=== PATIENT | male | born 1960 | race Caucasian/White ===

== ENCOUNTER 2020-01-25 10:13 | Outpatient (CLI) | payer OTHER, SELFPAY ==
[2020-01-25 17:13] LABS: Basophils Percent Auto 0.4 % (0.2-1.2); Eosinophils Absolute Auto 0.1 K/mm3 (0-0.3); Eosinophils Percent Auto 1.2 % (0-4.4); Hematocrit 44.7 % (42.0-52.0); Hemoglobin 15.6 g/dL (14.0-18.0); Immature Granulocyte Absolute 0.09 K/mm3 (0.00-0.031); Lymphocytes Absolute Auto 1.82 K/mm3 (0.9-3.2); Lymphocytes Percent Auto 19.4 % (18.3-44.2); Mean Corpuscular HGB Conc 34.9 g/dl (32-36); Mean Corpuscular Hemoglobin 31.6 pg (26-34); Mean Corpuscular Volume 90.5 fl (80-100); Mean Platelet Volume 9.9 fl (7.4-10.4); Monocytes Absolute Auto 0.7 K/mm3 (0.1-0.6); Monocytes Percent Auto 7.3 % (2.6-8.5); Neutrophils Absolute Auto 6.6 K/mm3 (1.3-6.7); Neutrophils Percent Auto 70.7 % (45.5-73.1); Platelet Count Result 230 k/mm3 (150-375); Red Blood Count 4.94 M/mm3 (4.6-6.20); Red Cell Distribution Width 12.5 % (11.5-14.5); White Blood Count 9.4 K/mm3 (4.5-10.0)
[2020-01-25 17:28] LABS: Add Urine Microscopic? YES; Appearance Urine Clear (Clear); Bilirubin Urine Negative (Negative); Blood Urine Negative (Negative); Color Urine Yellow (Yellow); Glucose Urine UA Negative (Negative); Ketones Urine Negative (Negative); Leukocyte Esterase Ur Negative LEU/UL (Negative); Nitrate Urine Negative (Negative); Protein Urine Negative (Negative); Specific Grav Ur 1.026 (1.001-1.035); Urobilinogen Urine Negative mg/dL (<2.0); WBC Urine 0-3 /hpf
[2020-01-25 18:50] LABS: Alanine Aminotransferase 33 U/L (4-50); Albumin Level 4.6 g/dL (3.5-5.1); Alkaline Phosphatase 75 U/L (38-126); Anion Gap 10 mmol/L (8-16); Aspartate Amino Transferase 32 U/L (17-59); Bilirubin,Total 0.5 mg/dL (0.2-1.3); Blood Urea Nitrogen 17 mg/dL (9-20); Calcium 9.6 mg/dL (8.4-10.2); Carbon Dioxide 31 mmol/L (22-30); Chloride 100 mmol/L (98-107); Cholesterol 179 mg/dL (0-200); Estimated Glomerular Filt Rate > 60; Glucose 108 mg/dL (75-110); HDL Direct 40 mg/dL; Magnesium 1.3 mg/dL (1.6-2.3); Potassium 3.5 mmol/L (3.4-5.0); Sodium 141 mmol/L (137-145); Triglycerides 457 mg/dL (<150)
[2020-01-25 18:53] LABS: Iron 96 ug/dL (49-181)
[2020-01-25 18:59] LABS: LDL Cholesterol Direct 67 mg/dL
[2020-01-25 19:03] LABS: Percent Iron Saturation 27 % (20-50)
[2020-01-25 19:08] LABS: Vitamin D 25 Hydroxy 27.2 ng/mL
[2020-01-25 19:13] LABS: Free T4 Free Thyroxine 1.05 ng/mL (0.78-2.19)
[2020-01-25 19:20] LABS: Prostate Specific Antigen 0.8 ng/mL (< OR = 4.0)
[2020-01-25 19:54] LABS: Folic Acid 19.7 ng/mL (2.76->20)
[2020-01-28 13:52] LABS: FSH 4.3 mIU/mL (1.6-8.0); Triiodothyronine T3 Free 3.4 pg/mL (2.3-4.2)
[2020-01-29 10:35] LABS: T3 Reverse 13 ng/dL (8-25)
[2020-01-30 12:59] LABS: Testosterone Free 44.8 pg/mL (35.0-155.0); Testosterone Total 180 ng/dL (250-1100)
== END 2020-01-25 10:14 | disposition home or self-care (01) ==
LOC: ANHBWCLAB 10:17
PROVIDERS: PCP Family Medicine; Visit Provider Family Medicine
DX: R79.89 Other specified abnormal findings of blood chemistry (principal); K46.9 Unspecified abdominal hernia without obstruction or gangrene; K50.90 Crohn's disease, unspecified, without complications; Z51.81 Encounter for therapeutic drug level monitoring; Z79.899 Other long term (current) drug therapy
CPT/HCPCS: 36415; 80053; 80061; 81001; 82306; 82607; 82728; 82746; 83001; 83540; 83550; 83735; 84153; 84402; 84403; 84439; 84443; 84481; 84482; 85025; 86140; G0103

== ENCOUNTER 2020-04-11 11:16 | Outpatient (CLI) | payer OTHER, SELFPAY ==
[2020-04-11 18:45] LABS: Basophils Percent Auto 0.6 % (0.2-1.2); Eosinophils Absolute Auto 0.1 K/mm3 (0-0.3); Eosinophils Percent Auto 1.7 % (0-4.4); Hematocrit 44.8 % (42.0-52.0); Hemoglobin 15.9 g/dL (14.0-18.0); Immature Granulocyte Absolute 0.04 K/mm3 (0.00-0.031); Immature Granulocyte Percent A 0.6 % (0-0.5); Lymphocytes Absolute Auto 1.93 K/mm3 (0.9-3.2); Lymphocytes Percent Auto 30.2 % (18.3-44.2); Mean Corpuscular HGB Conc 35.5 g/dl (32-36); Mean Corpuscular Volume 87.3 fl (80-100); Mean Platelet Volume 10.1 fl (7.4-10.4); Monocytes Absolute Auto 0.4 K/mm3 (0.1-0.6); Monocytes Percent Auto 6.1 % (2.6-8.5); Neutrophils Absolute Auto 3.9 K/mm3 (1.3-6.7); Neutrophils Percent Auto 60.8 % (45.5-73.1); Platelet Count Result 220 k/mm3 (150-375); Red Blood Count 5.13 M/mm3 (4.6-6.20); Red Cell Distribution Width 12.4 % (11.5-14.5); White Blood Count 6.4 K/mm3 (4.5-10.0)
[2020-04-11 18:50] LABS: Add Urine Microscopic? YES; Amorphous Sediment Urine Moderate; Appearance Urine Turbid (Clear); Bilirubin Urine Negative (Negative); Blood Urine Negative (Negative); Color Urine Yellow (Yellow); Glucose Urine UA Negative (Negative); Ketones Urine Negative (Negative); Leukocyte Esterase Ur Negative LEU/UL (Negative); Nitrate Urine Negative (Negative); Protein Urine Negative (Negative); Specific Grav Ur 1.023 (1.001-1.035); Urobilinogen Urine Negative mg/dL (<2.0)
[2020-04-11 19:34] LABS: Vitamin D 25 Hydroxy 33.3 ng/mL
[2020-04-11 21:33] LABS: Alanine Aminotransferase 46 U/L (4-50); Albumin Level 4.4 g/dL (3.5-5.1); Alkaline Phosphatase 65 U/L (38-126); Anion Gap 7 mmol/L (8-16); Aspartate Amino Transferase 42 U/L (17-59); Bilirubin,Total 0.6 mg/dL (0.2-1.3); Blood Urea Nitrogen 15 mg/dL (9-20); Calcium 9.5 mg/dL (8.4-10.2); Carbon Dioxide 32 mmol/L (22-30); Chloride 99 mmol/L (98-107); Cholesterol 200 mg/dL (0-200); Estimated Glomerular Filt Rate > 60; Glucose 107 mg/dL (75-110); HDL Direct 40 mg/dL; Potassium 3.6 mmol/L (3.4-5.0); Sodium 138 mmol/L (137-145); Triglycerides 505 mg/dL (<150)
[2020-04-11 21:44] LABS: LDL Cholesterol Direct 70 mg/dL
[2020-04-11 21:59] LABS: CRP < 0.5 mg/dL (<1.0)
[2020-04-15 07:12] LABS: FSH 4.1 mIU/mL (1.6-8.0)
[2020-04-16 15:39] LABS: Testosterone Total 271 ng/dL (250-1100)
== END 2020-04-11 11:17 | disposition home or self-care (01) ==
PROVIDERS: PCP Family Medicine; Visit Provider Family Medicine
DX: R89.9 Unspecified abnormal finding in specimens from other organs, systems and tissues (principal); Z51.81 Encounter for therapeutic drug level monitoring; Z79.899 Other long term (current) drug therapy; K50.90 Crohn's disease, unspecified, without complications; R79.89 Other specified abnormal findings of blood chemistry; E83.42 Hypomagnesemia; E78.1 Pure hyperglyceridemia
CPT/HCPCS: 36415; 80053; 80061; 81001; 82306; 83001; 84402; 84403; 85025; 86140

== ENCOUNTER 2020-05-05 09:30 | Outpatient (CLI) | payer OTHER, SELFPAY ==
[2020-05-05 18:46] LABS: Cholesterol 203 mg/dL (0-200); HDL Direct 41 mg/dL; Triglycerides 376 mg/dL (<150)
[2020-05-05 18:56] LABS: LDL Cholesterol Direct 85 mg/dL
[2020-05-09 19:24] LABS: Testosterone Free 46.4 pg/mL (35.0-155.0); Testosterone Total 201 ng/dL (250-1100)
== END 2020-05-05 09:31 | disposition home or self-care (01) ==
PROVIDERS: PCP Family Medicine; Visit Provider Family Medicine
DX: E29.1 Testicular hypofunction (principal); E78.1 Pure hyperglyceridemia
CPT/HCPCS: 36415; 80061; 84402; 84403

== ENCOUNTER 2020-09-30 11:35 | Outpatient (CLI) | payer OTHER, SELFPAY ==
[2020-09-30 18:26] LABS: Basophils Percent Auto 0.7 % (0.2-1.2); Eosinophils Absolute Auto 0.1 K/mm3 (0-0.3); Hematocrit 46.7 % (42.0-52.0); Hemoglobin 16.5 g/dL (14.0-18.0); Immature Granulocyte Absolute 0.02 K/mm3 (0.00-0.031); Immature Granulocyte Percent A 0.3 % (0-0.5); Lymphocytes Absolute Auto 1.62 K/mm3 (0.9-3.2); Lymphocytes Percent Auto 27.4 % (18.3-44.2); Mean Corpuscular HGB Conc 35.3 g/dl (32-36); Mean Corpuscular Hemoglobin 32.2 pg (26-34); Mean Corpuscular Volume 91.2 fl (80-100); Mean Platelet Volume 10.5 fl (7.4-10.4); Monocytes Absolute Auto 0.5 K/mm3 (0.1-0.6); Monocytes Percent Auto 8.6 % (2.6-8.5); Neutrophils Absolute Auto 3.7 K/mm3 (1.3-6.7); Platelet Count Result 226 k/mm3 (150-375); Red Blood Count 5.12 M/mm3 (4.6-6.20); Red Cell Distribution Width 12.3 % (11.5-14.5); White Blood Count 5.9 K/mm3 (4.5-10.0)
[2020-09-30 18:31] LABS: Triglycerides 416 mg/dL (<150)
[2020-09-30 18:34] LABS: Alanine Aminotransferase 34 U/L (4-50); Albumin Level 4.6 g/dL (3.5-5.1); Alkaline Phosphatase 50 U/L (38-126); Anion Gap 11 mmol/L (8-16); Aspartate Amino Transferase 35 U/L (17-59); Bilirubin,Total 0.6 mg/dL (0.2-1.3); Blood Urea Nitrogen 18 mg/dL (9-20); Calcium 9.6 mg/dL (8.4-10.2); Carbon Dioxide 26 mmol/L (22-30); Chloride 101 mmol/L (98-107); Cholesterol 205 mg/dL (0-200); Estimated Glomerular Filt Rate > 60; Glucose 154 mg/dL (65-110); HDL Direct 42 mg/dL; Magnesium 1.4 mg/dL (1.6-2.3); Potassium 3.4 mmol/L (3.4-5.0); Sodium 138 mmol/L (137-145); Triglycerides 410 mg/dL (<150)
[2020-09-30 18:45] LABS: LDL Cholesterol Direct 89 mg/dL
[2020-09-30 19:05] LABS: Prostate Specific Antigen 0.7 ng/mL (< OR = 4.0)
[2020-09-30 20:58] LABS: Vitamin D 25 Hydroxy 42.4 ng/mL
[2020-10-05 16:25] LABS: Estrogen 258.5 pg/mL (60-190)
== END 2020-09-30 11:36 | disposition home or self-care (01) ==
LOC: ANHBWCLAB 11:42
PROVIDERS: PCP Family Medicine; Visit Provider Family Medicine
DX: E78.1 Pure hyperglyceridemia (principal); R79.89 Other specified abnormal findings of blood chemistry; G62.9 Polyneuropathy, unspecified; I10 Essential (primary) hypertension; K50.90 Crohn's disease, unspecified, without complications; E83.42 Hypomagnesemia; E29.1 Testicular hypofunction; Z87.19 Personal history of other diseases of the digestive system
CPT/HCPCS: 36415; 80053; 80061; 82306; 82607; 82672; 83735; 84153; 84478; 85025

== ENCOUNTER 2020-10-06 08:15 | Outpatient (CLI) | payer OTHER, SELFPAY ==
[2020-10-06 21:35] LABS: Hemoglobin A1C 5.6 % (<5.7)
[2020-10-10 15:12] LABS: Testosterone Total 162 ng/dL (250-1100)
== END 2020-10-06 08:16 | disposition home or self-care (01) ==
PROVIDERS: PCP Family Medicine; Visit Provider Family Medicine
DX: E29.1 Testicular hypofunction (principal); R73.9 Hyperglycemia, unspecified
CPT/HCPCS: 36415; 83036; 84403

== ENCOUNTER 2020-11-20 09:38 | Outpatient (CLI) | payer OTHER, SELFPAY ==
[2020-11-20 21:08] LABS: Anion Gap 10 mmol/L (8-16); Blood Urea Nitrogen 21 mg/dL (9-20); Calcium 9.9 mg/dL (8.4-10.2); Carbon Dioxide 28 mmol/L (22-30); Chloride 101 mmol/L (98-107); Estimated Glomerular Filt Rate > 60; Glucose 158 mg/dL (65-110); Potassium 3.7 mmol/L (3.4-5.0); Sodium 139 mmol/L (137-145)
[2020-11-28 00:55] LABS: Testosterone Free 89.1 pg/mL (35.0-155.0); Testosterone Total 437 ng/dL (250-1100)
== END 2020-11-20 09:39 | disposition home or self-care (01) ==
PROVIDERS: PCP Family Medicine; Visit Provider Family Medicine
DX: E87.6 Hypokalemia (principal)
CPT/HCPCS: 36415; 80048; 84402; 84403

== ENCOUNTER 2021-01-06 10:45 | Outpatient (CLI) | payer OTHER, SELFPAY ==
--- NOTE | ~2021-01-06 | XR_ITS ---
EXAMINATION: XR shoulder LT min 2V EXAM DATE: 01/06/2021 10:56 INDICATION: Anterior Pain In Lt Shoulder X 8 Months, No Inj. TECHNIQUE: The following left shoulder projections obtained: frontal projection with internal rotatio n, frontal projection with external rotation, Grashey, and scapular Y view (4+ views). There is no p rior study for comparison. FINDINGS: No evidence of left shoulder rotator cuff calcific tendinosis. There is mild glenohumera l joint, mild to moderate acromioclavicular joint primary osteoarthritis. There are no acute fracture s or dislocations identified. There is no subcutaneous gas. The soft tissue is unremarkable. Ther e are no radiopaque foreign bodies. IMPRESSION: Mild to moderate left AC, mild glenohumeral osteoarthritis. Reviewed, dictated and finalized at location A. ATOR INSTALLER
== END 2021-01-06 10:46 | disposition home or self-care (01) ==
PROVIDERS: PCP Family Medicine; Visit Provider Family Medicine
DX: M19.012 Primary osteoarthritis, left shoulder (principal)
CPT/HCPCS: 73030

== ENCOUNTER 2021-06-17 08:28 | Outpatient (CLI) | payer OTHER, SELFPAY ==
[2021-06-18 11:40] LABS: Hematocrit 48.4 % (42.0-52.0); Hemoglobin 15.3 g/dL (14.0-18.0); Mean Corpuscular HGB Conc 31.6 g/dl (32-36); Mean Corpuscular Hemoglobin 30.8 pg (26-34); Mean Corpuscular Volume 97.6 fl (80-100); Mean Platelet Volume 10.1 fl (7.4-10.4); Platelet Count Result 238 k/mm3 (150-375); Red Blood Count 4.96 M/mm3 (4.6-6.20); Red Cell Distribution Width 14.1 % (11.5-14.5); White Blood Count 5.5 K/mm3 (4.5-10.0)
[2021-06-18 14:29] LABS: Cholesterol 213 mg/dL (0-200); HDL Direct 45 mg/dL; Triglycerides 233 mg/dL (<150)
[2021-06-18 14:44] LABS: LDL Cholesterol Direct 102 mg/dL
[2021-06-18 15:56] LABS: Prostate Specific Antigen 0.8 ng/mL (< OR = 4.0)
[2021-06-22 10:14] LABS: Testosterone Free 96.5 pg/mL (35.0-155.0); Testosterone Total 386 ng/dL (250-1100)
== END 2021-06-17 08:29 | disposition home or self-care (01) ==
PROVIDERS: PCP Family Medicine; Visit Provider Family Medicine
DX: R79.89 Other specified abnormal findings of blood chemistry (principal)
CPT/HCPCS: 36415; 80061; 84153; 84402; 84403; 85027; G0103

== ENCOUNTER 2021-06-22 11:56 | Outpatient (CLI) | payer OTHER, SELFPAY | END 2021-06-22 11:57 | disposition home or self-care (01) | PROVIDERS: PCP Family Medicine; Visit Provider Family Medicine | DX: G62.9 Polyneuropathy, unspecified (principal) | CPT/HCPCS: 36415; 82607 ==

== ENCOUNTER 2022-01-12 08:03 | Outpatient (CLI) | payer OTHER, SELFPAY ==
[2022-01-12 19:02] LABS: Basophils Percent Auto 0.3 % (0.2-1.2); Eosinophils Percent Auto 0.5 % (0-4.4); Hematocrit 47.2 % (42.0-52.0); Hemoglobin 16.2 g/dL (14.0-18.0); Immature Granulocyte Absolute 0.05 K/mm3 (0.00-0.031); Immature Granulocyte Percent A 0.8 % (0-0.5); Lymphocytes Absolute Auto 1.91 K/mm3 (0.9-3.2); Lymphocytes Percent Auto 30.1 % (18.3-44.2); Mean Corpuscular HGB Conc 34.3 g/dl (32-36); Mean Corpuscular Hemoglobin 32.4 pg (26-34); Mean Corpuscular Volume 94.4 fl (80-100); Mean Platelet Volume 10.1 fl (7.4-10.4); Monocytes Absolute Auto 0.5 K/mm3 (0.1-0.6); Monocytes Percent Auto 8.5 % (2.6-8.5); Neutrophils Absolute Auto 3.8 K/mm3 (1.3-6.7); Neutrophils Percent Auto 59.8 % (45.5-73.1); Platelet Count Result 225 k/mm3 (150-375); Red Cell Distribution Width 12.3 % (11.5-14.5); White Blood Count 6.3 K/mm3 (4.5-10.0)
[2022-01-12 19:07] LABS: Alanine Aminotransferase 47 U/L (6-50); Albumin Level 4.9 g/dL (3.5-5.1); Alkaline Phosphatase 56 U/L (38-126); Anion Gap 11 mmol/L (8-16); Aspartate Amino Transferase 65 U/L (17-59); Bilirubin,Total 0.5 mg/dL (0.2-1.3); Blood Urea Nitrogen 22 mg/dL (9-20); Calcium 9.4 mg/dL (8.4-10.2); Carbon Dioxide 28 mmol/L (22-30); Chloride 101 mmol/L (98-107); Cholesterol 231 mg/dL (0-200); Estimated Glomerular Filt Rate > 60; Glucose 105 mg/dL (65-110); HDL Direct 47 mg/dL; Potassium 3.7 mmol/L (3.4-5.0); Sodium 140 mmol/L (137-145); Triglycerides 269 mg/dL (<150)
[2022-01-12 19:18] LABS: LDL Cholesterol Direct 118 mg/dL
[2022-01-16 16:57] LABS: Testosterone Free 114.7 pg/mL (35.0-155.0); Testosterone Total 455 ng/dL (250-1100)
== END 2022-01-12 08:04 | disposition home or self-care (01) ==
LOC: ANHBWCLAB 08:03
PROVIDERS: PCP Family Medicine; Visit Provider Family Medicine
DX: Z00.00 Encounter for general adult medical examination without abnormal findings (principal); E87.6 Hypokalemia; R79.89 Other specified abnormal findings of blood chemistry
CPT/HCPCS: 36415; 80053; 80061; 84153; 84402; 84403; 85025; G0103

== ENCOUNTER 2022-02-04 11:16 | Outpatient (CLI) | payer OTHER, SELFPAY ==
[2022-02-04 20:09] LABS: Hematocrit 50.9 % (42.0-52.0); Hemoglobin 17.9 g/dL (14.0-18.0); Mean Corpuscular HGB Conc 35.2 g/dl (32-36); Mean Corpuscular Hemoglobin 31.9 pg (26-34); Mean Corpuscular Volume 90.7 fl (80-100); Mean Platelet Volume 10.2 fl (7.4-10.4); Platelet Count Result 245 k/mm3 (150-375); Red Blood Count 5.61 M/mm3 (4.6-6.20); Red Cell Distribution Width 12.1 % (11.5-14.5); White Blood Count 7.7 K/mm3 (4.5-10.0)
[2022-02-04 20:18] LABS: Alanine Aminotransferase 65 U/L (6-50); Albumin Level 5.3 g/dL (3.5-5.1); Alkaline Phosphatase 60 U/L (38-126); Anion Gap 15 mmol/L (8-16); Aspartate Amino Transferase 79 U/L (17-59); Bilirubin,Total 0.8 mg/dL (0.2-1.3); Blood Urea Nitrogen 33 mg/dL (9-20); Calcium 9.1 mg/dL (8.4-10.2); Carbon Dioxide 24 mmol/L (22-30); Chloride 92 mmol/L (98-107); Estimated Glomerular Filt Rate 34; Glucose 106 mg/dL (65-110); Potassium 3.5 mmol/L (3.4-5.0); Sodium 131 mmol/L (137-145)
== END 2022-02-04 11:17 | disposition home or self-care (01) ==
LOC: ANHBWCLAB 11:17
PROVIDERS: PCP Family Medicine; Visit Provider Family Medicine
DX: R19.7 Diarrhea, unspecified (principal); R10.9 Unspecified abdominal pain
CPT/HCPCS: 36415; 80053; 85027

== ENCOUNTER 2022-04-12 10:39 | Outpatient (CLI) | payer OTHER, SELFPAY ==
[2022-04-12 19:46] LABS: Alanine Aminotransferase 49 U/L (6-50); Albumin Level 4.6 g/dL (3.5-5.1); Alkaline Phosphatase 59 U/L (38-126); Anion Gap 8 mmol/L (8-16); Aspartate Amino Transferase 61 U/L (17-59); Bilirubin,Total 0.5 mg/dL (0.2-1.3); Blood Urea Nitrogen 14 mg/dL (9-20); Carbon Dioxide 31 mmol/L (22-30); Chloride 98 mmol/L (98-107); Estimated Glomerular Filt Rate > 60; Glucose 161 mg/dL (65-110); Potassium 3.3 mmol/L (3.4-5.0); Sodium 137 mmol/L (137-145)
[2022-04-12 21:00] LABS: Hepatitis B Surface Antigen Negative (Negative)
[2022-04-12 21:06] LABS: HAV RESULT Negative (Negative); Hepatitis B Core IgM Result Negative (Negative)
[2022-04-12 21:18] LABS: Hepatitis C Virus Antibody Negative (Negative)
== END 2022-04-12 10:40 | disposition home or self-care (01) ==
LOC: ANHBWCLAB 10:40
PROVIDERS: PCP Family Medicine; Visit Provider Family Medicine
DX: R74.01 Elevation of levels of liver transaminase levels (principal); N17.9 Acute kidney failure, unspecified; R10.9 Unspecified abdominal pain; R19.7 Diarrhea, unspecified
CPT/HCPCS: 36415; 80053; 80074; 82248

== ENCOUNTER 2022-04-21 08:15 | Outpatient (CLI) | payer OTHER, SELFPAY ==
[2022-04-21 20:34] LABS: Anion Gap 8 mmol/L (8-16); Blood Urea Nitrogen 19 mg/dL (9-20); Calcium 9.4 mg/dL (8.4-10.2); Carbon Dioxide 29 mmol/L (22-30); Chloride 100 mmol/L (98-107); Estimated Glomerular Filt Rate > 60; Glucose 112 mg/dL (65-110); Potassium 3.4 mmol/L (3.4-5.0); Sodium 137 mmol/L (137-145)
[2022-04-21 20:50] LABS: Hemoglobin A1C 5.4 % (<5.7)
== END 2022-04-21 08:16 | disposition home or self-care (01) ==
LOC: ANHBWCLAB 08:16
PROVIDERS: PCP Family Medicine; Visit Provider Family Medicine
DX: R73.9 Hyperglycemia, unspecified (principal); E87.6 Hypokalemia
CPT/HCPCS: 36415; 80048; 83036

== ENCOUNTER 2022-07-20 08:08 | Outpatient (CLI) | payer OTHER, SELFPAY ==
[2022-07-24 19:11] LABS: Testosterone Free 41.2 pg/mL (35.0-155.0); Testosterone Total 238 ng/dL (250-1100)
== END 2022-07-20 08:09 | disposition home or self-care (01) ==
LOC: ANHBWCLAB 08:08
PROVIDERS: PCP Family Medicine; Visit Provider Nurse Practitioner Adult Health
DX: E87.6 Hypokalemia (principal)
CPT/HCPCS: 36415; 84402; 84403

== ENCOUNTER 2023-01-18 08:32 | Outpatient (CLI) | payer OTHER, SELFPAY ==
--- NOTE | ~2023-01-18 | XR_ITS ---
EXAMINATION: XR foot LT 2V INDICATION: Left foot pain TECHNIQUE: Two views of the left foot are obtained. COMPARISON: None available FINDINGS: Bone alignment is normal. There is no fracture. There is mild osteoarthritis of multiple in terphalangeal joints and at the first metatarsophalangeal joint. The soft tissues are unremarkable. A plantar calcaneal enthesophyte is noted. IMPRESSION: 1. Polyarticular osteoarthritis without acute osseous abnormality. Reviewed, dictated and finalized at location L. NEY BUILDER BRICK
--- NOTE | ~2023-01-18 | XR_ITS ---
Right ankle Technique: AP and lateral views were obtained. Clinical History: Pain Findings: No acute fracture or dislocation is seen. Osseous alignment is anatomic. Ankle mortise and other visualized joint spaces are preserved. Soft tissues are otherwise unremarkable. Impression: Unremarkable right ankle. Reviewed, dictated and finalized at [facility]. ATIONS MANAGER Impression: Unremarkable right ankle.
--- NOTE | ~2023-01-18 | XR_ITS ---
Left ankle Technique: AP and lateral views were obtained. Clinical History: Pain Findings: No acute fracture or dislocation is seen. Osseous alignment is anatomic. Ankle mortise and other visualized joint spaces are preserved. Soft tissues are otherwise unremarkable. Impression: Unremarkable left ankle. Reviewed, dictated and finalized at [facility]. VATION MANAGER Impression: Unremarkable left ankle.
--- NOTE | ~2023-01-18 | XR_ITS ---
EXAMINATION: XR foot RT 2V INDICATION: Right foot pain TECHNIQUE: Two views of the right foot are obtained. COMPARISON: None available FINDINGS: Bone alignment is normal. There is no acute fracture. Heterotopic ossification lateral to t he base of the fifth metatarsal could reflect prior fracture. There is mild osteoarthritis of multipl e interphalangeal joints and at the first metatarsophalangeal joint. Posterior and plantar calcaneal enthesophytes are noted. IMPRESSION: 1. No acute osseous abnormality. Reviewed, dictated and finalized at location L. MIC SURVEY ASSISTANT
[2023-01-18 19:37] LABS: Basophils Absolute Auto 0.1 K/mm3 (0.0-0.1); Basophils Percent Auto 0.7 % (0.2-1.2); Eosinophils Absolute Auto 0.1 K/mm3 (0-0.3); Eosinophils Percent Auto 0.7 % (0-4.4); Hematocrit 49.3 % (42.0-52.0); Hemoglobin 16.3 g/dL (14.0-18.0); Immature Granulocyte Absolute 0.12 K/mm3 (0.00-0.031); Immature Granulocyte Percent A 1.6 % (0-0.5); Lymphocytes Absolute Auto 1.87 K/mm3 (0.9-3.2); Lymphocytes Percent Auto 24.3 % (18.3-44.2); Mean Corpuscular HGB Conc 33.1 g/dl (32-36); Mean Corpuscular Hemoglobin 31.2 pg (26-34); Mean Corpuscular Volume 94.3 fl (80-100); Mean Platelet Volume 10.4 fl (7.4-10.4); Monocytes Absolute Auto 0.7 K/mm3 (0.1-0.6); Monocytes Percent Auto 8.8 % (2.6-8.5); Neutrophils Absolute Auto 4.9 K/mm3 (1.3-6.7); Neutrophils Percent Auto 63.9 % (45.5-73.1); Platelet Count Result 261 k/mm3 (150-375); Red Blood Count 5.23 M/mm3 (4.6-6.20); Red Cell Distribution Width 12.4 % (11.5-14.5); White Blood Count 7.7 K/mm3 (4.5-10.0)
[2023-01-18 19:53] LABS: Alanine Aminotransferase 45 U/L (6-50); Albumin Level 4.8 g/dL (3.5-5.1); Alkaline Phosphatase 60 U/L (38-126); Anion Gap 10 mmol/L (8-16); Aspartate Amino Transferase 51 U/L (17-59); Bilirubin,Total 0.8 mg/dL (0.2-1.3); Blood Urea Nitrogen 21 mg/dL (9-20); Calcium 10.2 mg/dL (8.4-10.2); Carbon Dioxide 29 mmol/L (22-30); Chloride 99 mmol/L (98-107); Cholesterol 229 mg/dL (0-200); Estimated Glomerular Filt Rate > 60; Glucose 108 mg/dL (65-110); HDL Direct 49 mg/dL; LDL Cholesterol Direct 121 mg/dL; Potassium 4.1 mmol/L (3.4-5.0); Sodium 138 mmol/L (137-145); Triglycerides 218 mg/dL (<150); Uric Acid 5.8 mg/dL (3.5-8.5)
[2023-01-18 19:54] LABS: Vitamin D 25 Hydroxy 29.1 ng/mL
[2023-01-18 20:11] LABS: Prostate Specific Antigen 1.2 ng/mL (< OR = 4.0)
[2023-01-18 20:48] LABS: Folic Acid 5.2 ng/mL (2.76->20)
[2023-01-23 13:16] LABS: Testosterone Free 52.9 pg/mL (35.0-155.0); Testosterone Total 252 ng/dL (250-1100)
== END 2023-01-18 08:33 | disposition home or self-care (01) ==
LOC: ANHBWCLAB 08:33
PROVIDERS: PCP Nurse Practitioner Adult Health; Visit Provider Nurse Practitioner Adult Health
DX: M19.072 Primary osteoarthritis, left ankle and foot (principal); I10 Essential (primary) hypertension; G62.9 Polyneuropathy, unspecified; E83.42 Hypomagnesemia; M10.9 Gout, unspecified; R79.89 Other specified abnormal findings of blood chemistry; Z12.5 Encounter for screening for malignant neoplasm of prostate
CPT/HCPCS: 36415; 73600; 73620; 80053; 80061; 82306; 82607; 82746; 83735; 84153; 84402; 84403; 84550; 85025; G0103

== ENCOUNTER 2023-01-21 09:29 | Outpatient (CLI) | payer OTHER, SELFPAY ==
[2023-01-21 19:11] LABS: Erythrocyte Sedimentation Rate 6 mm/hr (0-20)
[2023-01-26 16:57] LABS: ANA Cascade Screen Negative (Negative)
== END 2023-01-21 09:30 | disposition home or self-care (01) ==
LOC: ANHBWCLAB 09:30
PROVIDERS: PCP Nurse Practitioner Adult Health; Visit Provider Nurse Practitioner Adult Health
DX: M25.50 Pain in unspecified joint (principal)
CPT/HCPCS: 36415; 85652; 86038; 86225; 86235; 86364

== ENCOUNTER 2023-07-26 07:33 | Outpatient (CLI) | payer OTHER, SELFPAY ==
[2023-07-26 18:43] LABS: Basophils Absolute Auto 0.1 K/mm3 (0.0-0.1); Basophils Percent Auto 0.7 % (0.2-1.2); Eosinophils Absolute Auto 0.1 K/mm3 (0-0.3); Eosinophils Percent Auto 0.9 % (0-4.4); Hematocrit 53.5 % (42.0-52.0); Hemoglobin 17.7 g/dL (14.0-18.0); Immature Granulocyte Absolute 0.07 K/mm3 (0.00-0.031); Immature Granulocyte Percent A 0.9 % (0-0.5); Lymphocytes Absolute Auto 2.06 K/mm3 (0.9-3.2); Lymphocytes Percent Auto 27.6 % (18.3-44.2); Mean Corpuscular HGB Conc 33.1 g/dl (32-36); Mean Corpuscular Hemoglobin 31.1 pg (26-34); Mean Corpuscular Volume 93.9 fl (80-100); Mean Platelet Volume 10.7 fl (7.4-10.4); Monocytes Absolute Auto 0.8 K/mm3 (0.1-0.6); Monocytes Percent Auto 10.1 % (2.6-8.5); Neutrophils Absolute Auto 4.5 K/mm3 (1.3-6.7); Neutrophils Percent Auto 59.8 % (45.5-73.1); Platelet Count Result 253 k/mm3 (150-375); Red Cell Distribution Width 13.1 % (11.5-14.5); White Blood Count 7.5 K/mm3 (4.5-10.0)
[2023-07-26 18:45] LABS: Alanine Aminotransferase 43 U/L (6-50); Albumin Level 4.4 g/dL (3.5-5.1); Alkaline Phosphatase 55 U/L (38-126); Anion Gap 10 mmol/L (4-12); Aspartate Amino Transferase 69 U/L (17-59); Bilirubin,Total 0.7 mg/dL (0.2-1.3); Blood Urea Nitrogen 23 mg/dL (9-20); Calcium 9.3 mg/dL (8.4-10.2); Carbon Dioxide 27 mmol/L (22-30); Chloride 103 mmol/L (98-107); Cholesterol 196 mg/dL (0-200); Estimated Glomerular Filt Rate > 60; Glucose 118 mg/dL (65-110); HDL Direct 41 mg/dL; Magnesium 1.8 mg/dL (1.6-2.3); Potassium 3.7 mmol/L (3.4-5.0); Sodium 140 mmol/L (137-145); Triglycerides 224 mg/dL (<150); Uric Acid 6.8 mg/dL (3.5-8.5)
[2023-07-26 18:56] LABS: LDL Cholesterol Direct 116 mg/dL
[2023-07-26 19:21] LABS: Vitamin D 25 Hydroxy 32.7 ng/mL
[2023-07-29 14:43] LABS: Testosterone Free 168 pg/mL (35.0-155.0); Testosterone Total 721 ng/dL (250-1100)
== END 2023-07-26 07:34 | disposition home or self-care (01) ==
PROVIDERS: PCP Nurse Practitioner Adult Health; Visit Provider Nurse Practitioner Adult Health
DX: I10 Essential (primary) hypertension (principal); M10.9 Gout, unspecified; E29.1 Testicular hypofunction; R79.89 Other specified abnormal findings of blood chemistry
CPT/HCPCS: 36415; 80053; 80061; 82306; 83735; 84402; 84403; 84443; 84550; 85025

== ENCOUNTER 2023-08-15 17:42 | Emergency (ER) | payer OTHER, SELFPAY ==
[2023-08-15 17:56] VITALS: BP 149/95; PULSE 73; RESP 16; TEMP 36.9; O2SAT 95
--- NOTE | 2023-08-15 18:05 | ED.GENADULT ---
HPI - General Adult General Chief complaint: Ear Stated complaint: Left Ear Pain Time Seen by Provider: 08/15/23 18:08 Source: patient, RN notes reviewed and old records reviewed Mode of arrival: ambulatory Limitations: no limitations History of Present Illness HPI narrative: 63-year-old male presents to the [facility] with left ear for couple days. Also decreased hearing in the right ear. Patient does hearing aids Related Data Home Medications Medication Instructions Recorded Confirmed cholecalciferol (vitamin D3) 1,250 1,250 mcg PO .qd 01/21/20 07/20/23 mcg (50,000 unit) capsule iron,carbonyl 65 mg-vitamin C 125 1 tablet PO DAILY 01/21/20 07/20/23 mg tablet,delayed release (Vitron-C) loperamide 2 mg tablet (Imodium 2 mg PO Q4H PRN 01/21/20 07/20/23 A-D) lucuynllpumv-osaydvvs-htdhia tablet 1 tablet PO DAILY 01/21/20 07/20/23 infliximab 100 mg intravenous IV 04/11/20 07/20/23 solution (Remicade) mecobalamin (vitamin B12) 5,000 mcg PO 01/06/21 07/20/23 mcg disintegrating tablet Allergies Allergy/AdvReac Type Severity Reaction Status Date / Time orange Allergy Mild Abdominal Verified 07/20/23 09:12 Pain tomato Allergy Mild Gastrointestinal Verified 07/20/23 09:12 Upset Sulfa (Sulfonamide Allergy Unknown Hives Verified 07/20/23 09:12 Antibiotics) Review of Systems Review of Systems: All systems reviewed & are unremarkable except as noted in HPI and below Constitutional: Constitutional: Reports no additional constitutional complaints Eyes: Eyes: Reports no additional eye complaints ENT: Reports as per HPI Cardiovascular: Cardiovascular: Reports no additional cardiovascular complaints, Denies chest pain and Denies dyspnea Respiratory: Respiratory: Reports no additional respiratory complaints, Denies chest congestion, Denies cough and Denies dyspnea Gastrointestinal: Gastrointestinal: Reports no additional gastrointestinal complaints, Denies abdominal pain, Denies nausea and Denies vomiting Musculoskeletal: Musculoskeletal: Reports no additional musculoskeletal complaints Integumentary/Breasts: Skin/Breast: Reports system reviewed and no additional complaints, except as docu Neurologic: Reports system reviewed and no additional complaints, except as documented Psychiatric: Psychiatric: Reports no additional psychiatric complaints Allergic/Immunologic: Allergic/Immunologic: Reports no additional allergic/immunologic complaints PMFSH Past Medical History Medical History Bleeding ulcer Crohn's colitis GERD (gastroesophageal reflux disease) HTN (hypertension) Kidney stone Liver hemangioma Neuropathy Pancreatitis Surgical History Surgical History H/O hernia repair H/O lithotripsy History of colostomy reversal Hx of colostomy Status post right colon removal Family History Family History Mother History of IBS Abdominal aneurysm Father Esophageal cancer Black lung Cerebrovascular accident Social History Social History Smoking status: Never smoker Alcohol intake: current Drinks per week: 4 Substance use: never Substance use type: does not use Lack of Transportation: No Lack of Food: Never True Current Housing: I Have Housing Concerned About Future Housing: No Difficulty Paying Gas/Electric Bills: No Difficulty Paying for Meds: No Currently Unemployed: No Education: Master's Degree or Higher Difficulty w/ Childcare or Family Care: No Comments At the time of my signature, I reviewed and agree with the nursing past medical, surgical, social, and family history. There is no relevant family history pertinent to the patient complaint. Exam Const: General: cooperative, healthy appearing, comfortable, no acute dist
== END 2023-08-15 18:36 | disposition home or self-care (01) ==
PROVIDERS: Emergency Provider Nurse Practitioner; PCP Family Medicine
DX: H60.332 Swimmer's ear, left ear (principal); H61.21 Impacted cerumen, right ear; K50.90 Crohn's disease, unspecified, without complications; K21.9 Gastro-esophageal reflux disease without esophagitis; I10 Essential (primary) hypertension; G62.9 Polyneuropathy, unspecified
CPT/HCPCS: 69209; 99213; G0463

== ENCOUNTER 2023-08-19 09:05 | Emergency (ER) | payer OTHER, SELFPAY ==
[2023-08-19 09:09] VITALS: BP 148/95; PULSE 62; RESP 18; TEMP 37.1; O2SAT 96
--- NOTE | 2023-08-19 09:41 | ED.EAR ---
HPI - Ear Problem General Chief complaint: Ear Stated complaint: Left Ear Pain Time Seen by Provider: 08/19/23 09:41 Source: patient Mode of arrival: ambulatory Limitations: no limitations History of Present Illness HPI Narrative: 63 yo M presents with c/o L ear pain. Was seen at [facility] 5 days ago for same complaint. Afebrile. Did 5 days of abx and pt reports pain worse. All systems reviewed and negative except as noted above. Related Data Home Medications Medication Instructions Recorded Confirmed cholecalciferol (vitamin D3) 1,250 1,250 mcg PO .qd 01/21/20 07/20/23 mcg (50,000 unit) capsule iron,carbonyl 65 mg-vitamin C 125 1 tablet PO DAILY 01/21/20 07/20/23 mg tablet,delayed release (Vitron-C) loperamide 2 mg tablet (Imodium 2 mg PO Q4H PRN 01/21/20 07/20/23 A-D) zotwssovpusm-rhgthalr-eeekwh tablet 1 tablet PO DAILY 01/21/20 07/20/23 infliximab 100 mg intravenous IV 04/11/20 07/20/23 solution (Remicade) mecobalamin (vitamin B12) 5,000 mcg PO 01/06/21 07/20/23 mcg disintegrating tablet Allergies Allergy/AdvReac Type Severity Reaction Status Date / Time orange Allergy Mild Abdominal Verified 07/20/23 09:12 Pain tomato Allergy Mild Gastrointestinal Verified 07/20/23 09:12 Upset Sulfa (Sulfonamide Allergy Unknown Hives Verified 07/20/23 09:12 Antibiotics) Review of Systems Review of Systems: CONSTITUTIONAL: Denies fever, chills, or sweats. EYES: Denies visual changes, redness, or discharge. ENT: Denies rhinorrhea, congestion, sore throat. Left ear pain. CARDIOVASCULAR: Denies chest pain, palpitations, or edema. RESPIRATORY: Denies cough or dyspnea. GASTROINTESTINAL: Denies abdominal pain, nausea, vomiting, or diarrhea. GENITOURINARY: Denies dysuria or hematuria. SKIN: Denies rash or itching. MUSCULOSKELETAL: Denies back pain, joint pain, or myalgia. NEUROLOGIC: Denies headache, numbness, or weakness. PSYCHIATRIC: Denies anxiety or depression. All other systems reviewed are negative, except as documented in HPI. [facility] Past Medical History Medical History Bleeding ulcer Crohn's colitis GERD (gastroesophageal reflux disease) HTN (hypertension) Kidney stone Liver hemangioma Neuropathy Pancreatitis Surgical History Surgical History H/O hernia repair H/O lithotripsy History of colostomy reversal Hx of colostomy Status post right colon removal Family History Family History Mother History of IBS Abdominal aneurysm Father Esophageal cancer Black lung Cerebrovascular accident Social History Social History Smoking status: Never smoker Alcohol intake: current Drinks per week: 4 Substance use: never Substance use type: does not use Lack of Transportation: No Lack of Food: Never True Current Housing: I Have Housing Concerned About Future Housing: No Difficulty Paying Gas/Electric Bills: No Difficulty Paying for Meds: No Currently Unemployed: No Education: Master's Degree or Higher Difficulty w/ Childcare or Family Care: No Comments At time of signature, agree with nursing past medical, surgical, social and family history. There is no relevant family history pertinent to the presenting complaint. Exam Narrative: GENERAL: This is a well-nourished, well-developed patient, in no apparent distress. HEAD: normocephalic, atraumatic. EYES: PERRL. Sclera clear/white. Vision is grossly intact. EARS: External ears normal, L ear canal swollen and erythema, R ear canal normal, TMs normal without perforation. Hearing grossly intact. NOSE: External nose normal with no obvious nasal discharge, nares without redness, no rhinorrhea. THROAT: Mucous membranes moist, posterior pharynx clear. NECK: Neck supple, non-tender withou
== END 2023-08-19 09:55 | disposition home or self-care (01) ==
PROVIDERS: Emergency Provider Nurse Practitioner Family; PCP Family Medicine
DX: H60.502 Unspecified acute noninfective otitis externa, left ear (principal); K50.90 Crohn's disease, unspecified, without complications; K21.9 Gastro-esophageal reflux disease without esophagitis; I10 Essential (primary) hypertension; G62.9 Polyneuropathy, unspecified
CPT/HCPCS: 99213; G0463

== ENCOUNTER 2023-08-24 11:08 | Outpatient (CLI) | payer OTHER, SELFPAY ==
--- NOTE | ~2023-08-24 | XR_ITS ---
3 VIEWS PARANASAL SINUSES Ordering provider: Jennifer Francois APRN History: . Nasal congestion, left ear pain . Comparison: None. FINDINGS: BONES: No acute fracture as visualized. PARANASAL SINUSES: Well aerated. No air fluid levels. SOFT TISSUES: Normal. IMPRESSION: NO EVIDENCE OF SINUS DISEASE. Reviewed, dictated and finalized at location A.
== END 2023-08-24 11:09 | disposition home or self-care (01) ==
LOC: ANHBWCIMG 11:09
PROVIDERS: PCP Nurse Practitioner Adult Health; Visit Provider Nurse Practitioner Adult Health
DX: R09.81 Nasal congestion (principal)
CPT/HCPCS: 70220

== ENCOUNTER 2023-11-22 07:27 | Outpatient (CLI) | payer OTHER, SELFPAY ==
[2023-11-22 19:18] LABS: Alanine Aminotransferase 41 U/L (6-50); Albumin Level 4.4 g/dL (3.5-5.1); Alkaline Phosphatase 46 U/L (38-126); Anion Gap 9 mmol/L (4-12); Aspartate Amino Transferase 68 U/L (17-59); Bilirubin,Total 0.6 mg/dL (0.2-1.3); Blood Urea Nitrogen 21 mg/dL (9-20); Calcium 9.9 mg/dL (8.4-10.2); Carbon Dioxide 30 mmol/L (22-30); Chloride 98 mmol/L (98-107); Estimated Glomerular Filt Rate > 60; Glucose 125 mg/dL (65-110); Potassium 3.8 mmol/L (3.4-5.0); Sodium 137 mmol/L (137-145)
[2023-11-22 19:22] LABS: Basophils Percent Auto 0.6 % (0.2-1.2); Eosinophils Absolute Auto 0.1 K/mm3 (0-0.3); Eosinophils Percent Auto 1.5 % (0-4.4); Hematocrit 49.4 % (42.0-52.0); Hemoglobin 16.8 g/dL (14.0-18.0); Immature Granulocyte Absolute 0.04 K/mm3 (0.00-0.031); Immature Granulocyte Percent A 0.6 % (0-0.5); Lymphocytes Absolute Auto 2.11 K/mm3 (0.9-3.2); Lymphocytes Percent Auto 31.1 % (18.3-44.2); Mean Corpuscular Hemoglobin 31.9 pg (26-34); Mean Corpuscular Volume 93.7 fl (80-100); Mean Platelet Volume 10.2 fl (7.4-10.4); Monocytes Absolute Auto 0.6 K/mm3 (0.1-0.6); Neutrophils Absolute Auto 3.9 K/mm3 (1.3-6.7); Neutrophils Percent Auto 57.2 % (45.5-73.1); Platelet Count Result 255 k/mm3 (150-375); Red Blood Count 5.27 M/mm3 (4.6-6.20); Red Cell Distribution Width 12.5 % (11.5-14.5); White Blood Count 6.8 K/mm3 (4.5-10.0)
== END 2023-11-22 07:28 | disposition home or self-care (01) ==
LOC: ANHBWCLAB 07:31
PROVIDERS: PCP Nurse Practitioner Adult Health
DX: K50.118 Crohn's disease of large intestine with other complication (principal)
CPT/HCPCS: 36415; 80053; 85025

== ENCOUNTER 2024-01-23 09:34 | Outpatient (CLI) | payer OTHER, SELFPAY ==
[2024-01-23 19:23] LABS: Alanine Aminotransferase 47 U/L (6-50); Albumin Level 4.8 g/dL (3.5-5.1); Alkaline Phosphatase 58 U/L (38-126); Anion Gap 7 mmol/L (4-12); Aspartate Amino Transferase 113 U/L (17-59); Blood Urea Nitrogen 19 mg/dL (9-20); Calcium 9.3 mg/dL (8.4-10.2); Carbon Dioxide 31 mmol/L (22-30); Chloride 98 mmol/L (98-107); Estimated Glomerular Filt Rate > 60; Glucose 117 mg/dL (65-110); Potassium 3.8 mmol/L (3.4-5.0); Sodium 136 mmol/L (137-145)
[2024-01-23 19:52] LABS: Hematocrit 51.9 % (42.0-52.0); Hemoglobin 18.2 g/dL (14.0-18.0); Mean Corpuscular HGB Conc 35.1 g/dl (32-36); Mean Corpuscular Volume 91.2 fl (80-100); Mean Platelet Volume 10.3 fl (7.4-10.4); Platelet Count Result 225 k/mm3 (150-375); Red Blood Count 5.69 M/mm3 (4.6-6.20); Red Cell Distribution Width 12.7 % (11.5-14.5); White Blood Count 7.2 K/mm3 (4.5-10.0)
[2024-01-23 19:53] LABS: Prostate Specific Antigen 1.3 ng/mL (< OR = 4.0)
[2024-01-23 21:24] LABS: Hemoglobin A1C 5.7 % (<5.7)
[2024-01-23 21:32] LABS: Vitamin D 25 Hydroxy 33.3 ng/mL
[2024-01-29 08:43] LABS: Testosterone Free 43.8 pg/mL (35.0-155.0); Testosterone Total 200 ng/dL (250-1100)
--- OUTSIDE RECORDS SUMMARY | 2024-01-30 08:05 | XMS_ITS | Clinical Summary ---
Author Organization [facility] Address [address] [place] [address] Care Team Providers Care Consultant Teacher Name Role Phone Unavailable Primary Care Provider Unavailabl e Source Comments [facility],non-owned Affiliates and Associated Physician Practices is amultiple site organization consisting of ambulatory clinics and hospital sitesin [place], [place], [place] and [place]. This disclosure is being madepursuant to the Care Everywhere program and may not contain all information available regarding this patient. Last updated 17.[facility] [employer] Social History Tobacco Use Types Packs/Day Years Used Date Smoking Tobacco: Never Assessed Sex and Gender Information Value Date Recorded Sex Assigned at Not on file Gender Identity Not on file Sexual Orientation Not on file Plan of Treatment Health Maintenance Due Date Last Done Comments COLOGUARD (AGES 45-75) - COL ON CA SCREENING 1959 COLON MONITORING 1959 COLONOSCOPY - COLON CA SCREENING 1959 CT COLONOGRAPHY - COLON CA SCREENING 1959 Colorectal Cancer Screening 1959 FIT - COLON CA SCREENING 1959 FLEX SIG - COLON CA SCREENING 1959 LIPID TESTING 1959 HIV SCREENING 1974 HEPATITIS C SCREENING 03/06/1977 DTAP/TDAP/TD VACCINES (1 - Tdap) 1978 ZOSTER VACCINE (1 of 2) 2009 DEPRESSION SCREENING 02/07/2023 COVID-19 VACCINE ( - 2023-2 5 season) 2023 INFLUENZA VACCINE (#1) 2023 Respiratory Syncytial Virus (RSV) Vaccine Pt: or over 60 yrs (1 - 1-dose 75+ series) 2034 HEPATITIS B VACCINE Aged Out No longe r eligible based on patient's age to complete this topic HIB VACCINE Aged Out No longer eligi ble based on patient's age to complete this topic HPV VACCINE Aged Out No longer eligi ble based on patient's age to complete this topic MENINGOCOCCAL VACCINE Aged Out No donte william eligible based on patient's age to complete this topic PNEUMOCOCCAL VACCINE Aged Out No long er eligible based on patient's age to [place] [address] Kris Spence Personal/Famil y Self [address] [place] [address]
--- OUTSIDE RECORDS SUMMARY | 2024-01-30 08:05 | XMS_ITS | Patient Health Summary ---
Author Organization [facility] Address [address] [place] [address] Care Team Providers Care Stock Clipper Name Role Phone Unavailable Primary Care Provider Unavailabl e Note from [facility],non-owned Affiliates and Associated Physician Practices is amultiple site organization consisting of ambulatory clinics and hospital sitesin [place], [place], [place] and [place]. This disclosure is being madepursuant to the Care Everywhere program and may not contain all information available regarding this patient. Last updated 17.[facility] Social History Tobacco Use Types Packs/Day Years Used Date Smoking Tobacco: Never Assessed Sex and Gender Information Value Date Recorded Sex Assigned at Not on file Gender Identity Not on file Sexual Orientation Not on file Procedures * DERMATOPATHOLOGY(Performed 09/17/2022) Performed for Neoplasm of uncertain behavior of skin Results * DERMATOPATHOLOGY (09/17/2022 12:00 AM CDT) Case Report Dermatopathology Report ? Case: [id number] ? Authorizing Provider: ??Kishore Cuenca MD ? Collected: ? 09/17/2022 12:00 AM ? [facility] ? Received: ?09/20/2022 01:06 PM ? Pathologist: ? Solomon Lima MD ? Specimen: ?Skin, left lateral thigh ? 3 5:01 PM CDT DERMATOPATHOLOGY LABORATORY Final Diagnosis Specimen A. SKIN, left lateral thigh: LICHEN SIMPLEX CHRONICUS (L28.0) 3 5:01 PM T DERMATOPATHOLOGY LABORATORY Clinical History Squamous Cell Carcinoma vs. Prurigo modular is 3 5:01 PM CDT DERMATOPATHOLOGY LABORATORY Gross Description Specimen A: Received is one formalin filled container labeled with the patient's name and designated left lateral thigh. The specimen consists of a shave biopsy measuring [id number] mm. Jar 0. 3 5:01 PM T DERMATOPATHOLOGY LABORATORY Microscopic Description Specimen A. SKIN, left lateral thigh: Sections show acanthosis, hypergranulosis, and hyperkeratosis. The papillary dermis is fibrotic. 3 5:01 PM T DERMATOPATHOLOGY LABORATORY Disclaimer An external and internal positive and negative controls are appropriate for the histochemical, immunohistochemical and immunofluorescence stain(s) in this case (if any), except where stated explicitly. The performance characteristics of the stain(s) cited in this report were developed and its performance characteristic determined by the Dermatopathology Laboratory at [facility], directed by Dr. Blanco Lima. These tests need not be, and therefore are not, approved by the [place] Food and Drug Administration. The tests are used for clinical purposes. Billing Codes Specimen Charges Stain Charges 14422 1 3 5:01 PM CDT DERMATOPATHOLOGY LABORATORY Embedded Images 3 5:01 PM CDT DERMATOPATHOLOGY LABORATORY Pathology/Cytolog y TISSUE SPECIMEN FROM SKIN / Unknown 09/17/2022 09/20/2022 1:06 PM CDT Kishore Cuenca MD LAB - PATHOLOGY/CYTO LOGY ORDERABLES Performing Organization Address City/State/[facility] Co de Phone Number DERMATOPATHOLOGY LABORATORY [facility] - Department of Dermatology [facility] [address] [place] [address], [address]rd Floor [address] [phone]
--- OUTSIDE RECORDS SUMMARY | 2024-01-30 08:05 | XMS_ITS | Referral Summary ---
Author Organization [facility] Address [address] [place] [address] Care Team Providers Care Project Manager/Team Coach Name Role Phone Unavailable Primary Care Provider Unavailabl e Source Comments [facility],non-owned Affiliates and Associated Physician Practices is amultiple site organization consisting of ambulatory clinics and hospital sitesin [place], [place], [place] and [place]. This disclosure is being madepursuant to the Care Everywhere program and may not contain all information available regarding this patient. Last updated 17.[facility] Social History Tobacco Use Types Packs/Day Years Used Date Smoking Tobacco: Never Assessed Sex and Gender Information Value Date Recorded Sex Assigned at Not on file Gender Identity Not on file Sexual Orientation Not on file Plan of Treatment Not on file
--- OUTSIDE RECORDS SUMMARY | 2024-01-30 08:06 | XMS_ITS | Encounter Summary ---
Author Organization [facility] Address [address] [place] [address] Phone Care Team Providers Care Council On Aging Director Name Role Phone Eliana Houston MD Primary Care Provider [phone] Reason for Visit * Reason Comments polyneuropathy Encounter Details Date Type Department Care Team (Late st Contact Info) Description 03/20/2021 9:00 AM RETAIL ACCOUNT SPECIALIST Office Visit [facility] - Neurology [facility] [address] [place] [id number] Avinash Gonzalez MD [address] [place] [id number] Polyneuropathy (Primary Dx); Morbid obesity (HCC); B12 deficiency; Ulcerative colitis with complication, unspecified location (HCC) Discharge Disposition: Discharged to home or Selfcare Social History Tobacco Use Types Packs/Day Years Used Date Smoking Tobacco: Never Smokeless Tobacco: Never Alcohol Use Standard Drinks/Week Comments Yes 5 (1 standard drink = 0.6 oz pur e alcohol) Sex and Gender Information Value Date Recorded Sex Assigned at Not on file Legal Sex Male 11:46 AM CDT Gender Identity Not on file Sexual Orientation Not on file COVID-19 Exposure Response Date Recorded In the last month, have you been in contact with someone who was confirmed or suspected to have Coronavirus / COVID-19? No / Unsure 03/20/2021 8:58 AM RETAIL ACCOUNT SPECIALIST documented as of this encounter Last Filed Vital Signs Vital Sign Reading Time Taken Comments Blood Pressure 136/72 03/20/2021 9:09 AM RETAIL ACCOUNT SPECIALIST Pulse 97 03/20/2021 9:09 AM RETAIL ACCOUNT SPECIALIST Temperature 36.7 ??C (98 ??F) 03/20/2021 9:09 AM RETAIL ACCOUNT SPECIALIST Respiratory Rate 20 03/20/2021 9:09 AM RETAIL ACCOUNT SPECIALIST Oxygen Saturation 95% 03/20/2021 9:09 AM RETAIL ACCOUNT SPECIALIST Inhaled Oxygen Concentration - - Weight 120.2 kg (264 lb 14.4 oz) 03/20/2021 9:09 AM RETAIL ACCOUNT SPECIALIST Height 182.9 cm (6') 03/20/2021 9:09 AM RETAIL ACCOUNT SPECIALIST Body Mass Index 35.93 03/20/2021 9:09 AM RETAIL ACCOUNT SPECIALIST documented in this encounter Progress Notes * Avinash Gonzalez MD - 03/20/2021 9:00 AM CST NEUROLOGY CONSULT Date of Service: 03/20/2021 Assessment and Plan Kris was seen today for polyneuropathy. Diagnoses and all orders for this visit: Polyneuropathy - patient would like to decrease his dose - addressed the patient may taper down his gabapentin as tolerated - will have him contact my office once he finds that dose that adequately address his symptoms Morbid obesity (HCC) B12 deficiency Ulcerative colitis with complication, unspecified location (HCC) Reason for Consultation: polyneuropathy HPI: Randell notes that since having his ulcerative colitis treatment adjusted and starting on sulfasalazine to address his also reflect he has had significant improvement in his neuropathy. He feels that he could probably even lower his gabapentin dose at this time. Previous History: Randell notes modest improvement with gabapentin which allows him to function during the day. He does not feel that he gets adequate improvement at night though. There is a. In the evening where he does not have had adequate protection. Patient did review his labs and noted that his B12 is borderline low and would like to know if he gets a be deficient. Previous history: Kris notes improvement in his neuropathy. Reviewed his lab work including a1c which is borderline. Addressed dietary control of prediabetes however this is somewhat difficult with his Ulcerative Colitis. He gets night time benefit and thinks he could benefit from the taking it during the day. Previous History: Kris is a 59 year old male who present for evlauation of foot pain. He notes that he has burningpain in the bottom of his feet which he attributes to prolonged standing. He notes that when he wakes up he has cramping in his feet. He notes he can't feel his toes at times. He notes pain and discomfort in the sides of his feet as well. He notes that he also has tingling in his hands. He notes that it often wakes him up at night. He notes that symptoms og up to his knees. Past Medical History Positives Diagnosis Date ??? Anemia ??? History of stomach ulcers ??? Hypertension ??? Ulcerative colitis (HCC) Past Surgical History: Procedure Laterality Date ??? COLON SURGERY colon removal, j-pouch construction ??? COLOSTOMY colostomy reversal ??? HERNIA REPAIR ??? HERNIA REPAIR ??? OTHER SURGICAL HISTORY stomach muscle reconstruction Family History Problem Relation Age of Onset ??? Hypertension Father ??? Stroke Father ??? Cancer Father Throat cancer Social History Tobacco Use ??? Smoking status: Never Smoker ??? Smokeless tobacco: Never Used Substance Use Topics ??? Alcohol use: Yes Alcohol/week: 3.0 oz Types: 6 drink(s) per week Allergies Allergen Reactions ??? Coffee Oil Hives ??? Tomato Hives ??? Iron Rash ??? Sulfa Antibiotics Hives Current Outpatient Medications: ??? acetaminophen-codeine 300-30 MG PO TABS, Take 1-2 Tabs by mouth every 4 hours as needed for Pain., Disp: 30 Tab, Rfl: 0 ??? allopurinol (ZYLOPRIM) 100 MG Tablet, TAKE 1 TABLET BY MOUTH TWICE A DAY, Disp: , Rfl: 5 ??? Ascorbic Acid (VITAMIN C PO), Take by mouth., Disp: , Rfl: ??? CALCIUM CITRATE PO, Take by mouth., Disp: , Rfl: ??? chlorthalidone (HYGROTON) 25 MG Tablet, TAKE 1 TABLET BY ORAL ROUTE EVERY DAY, Disp: , Rfl: 3 ??? gabapentin (NEURONTIN) 300 MG Capsule, Take 1 Capsule by mouth 2 times daily AND 2 Capsules 2 times daily. 1 capsule at 8 am 2 capsules at 2 pm, 2 capsules at 6 pm and one at 10 pm. (Patient taking differently: Take 1 Capsule by mouth 3 times daily), Disp: 540 Capsule, Rfl: 1 ??? inFLIXimab (REMICADE IV), by Intravenous route., Disp: , Rfl: ??? KLOR-CON 20 MEQ PO PACK, daily., Disp: , Rfl: ??? lisinopril (PRINIVIL, ZESTRIL) 10 MG Tablet, Take 10 mg by mouth daily., Disp: , Rfl: ??? loperamide (IMODIUM A-D) 1 MG/7.5ML Suspension, Take by mouth., Disp: , Rfl: ??? Multiple Vitamin (MULTIVITAMIN PO), Take by mouth., Disp: , Rfl: ??? NEXIUM 24HR 20 MG CAPSULE DELAYED RELEASE, TAKE 2 TABLETS BY MOUTH EVERY DAY, Disp: , Rfl: 3 ??? phenazopyridine 200 MG PO TABS, Take 1 Tab by mouth 3 times daily for 10 days., Disp: 30 Tab, Rfl: 0 ??? SILDENAFIL 20 MG PO TABS, 5 mg., Disp: , Rfl: ??? sulfaSALAzine (AZULFIDINE) 500 MG Tablet, Take 2 tablets up to three times a day as needed, Disp: , Rfl: ??? TESTOSTERONE TD, by Transdermal route., Disp: , Rfl: ??? VITAMIN D PO, Take by mouth., Disp: , Rfl: Review of Systems: A 14 point Review of Systems is obtained, and is negative other than that mentioned in the History of Present Illness. Objective: VITALS: Blood pressure 136/72, pulse 97, temperature 98 ??F (36.7 ??C), temperature source Tympanic, resp. rate 20, height 6' (1.829 m), weight 264 lb 14.4 oz (120.2 kg), SpO2 95 %. Weight: Wt Readings from Last 1 Encounters: 03/20/21 264 lb 14.4 oz (120.2 kg) Body mass index is 35.93 kg/m??. EXAM: General appearance: alert, no distress, cooperative, appears stated age Head: Normocephalic, without obvious abnormality, atraumatic Heart: regular rate and rhythm, S1, S2 normal, no murmur, click, rub or gallop Extremities: extremities normal, atraumatic, no cyanosis or edema Neurologic: Mental: Fully alert and oriented to time, place, person, situation. There is no problem with concentration and attention. Verbal recall-normal. Visuospatial skills- normal. Fund of knowledge is good. Memory is good for recent and remote events. On cranial nerve exam, CN II: visual navarro are full to confrontation. Fundi are clear without hemorrhage or exudate, discs are sharp.CN III: Pupils are equal, round and reactive bilaterally; CN III,IV, extraocular movements are full with normal saccades and normal pursuits. There are no squarewave jerks. CN VIII: Hearing is intact bilaterally. CN V: Facial sensation is intact; CN VII: face is symmetric. CN IX: Palate elevates symmetrically. CN XII: Tongue is midline. CN XI: Shrug is 5/5. A motor examination was performed Muscles Tested Right Left Deltoid 5/5 5/5 Biceps 5/5 5/5 Triceps 5/5 5/5 Wrist Flexors 5/5 5/5 Wrist Extensors 5/5 5/5 Vocational Director 5/5 5/5 Hip Flexors 5/5 5/5 Quadriceps 5/5 5/5 Hamstrings 5/5 5/5 Dorsiflexion 5/5 5/5 EHL 5/5 5/5 Sensory exam is notable for being intact to light touch. Vibration and pin prick are intact. Romberg is negative. Coordination: finger to nose normal bilaterally. DTRs are 2+ bilateral upper and lower extremities. Plantars are downgoing bilaterally Gait is normal. Normal tandem gait, normal heel and toe walking. Normal armswing and turns. Data Review: Radiology Reviewed: yes No results found. CBC: Lab Results Component Value Date WBC 8.48 03/10/2020 RBC 5.15 03/10/2020 HEMOGLOBIN 15.7 03/10/2020 HEMATOCRIT 44.8 03/10/2020 PLATELETCNT 229 03/10/2020 CMP: Lab Results Component Value Date SODIUM 136 03/10/2020 POTASSIUM 3.2 (L) 03/10/2020 CHLORIDE 97 (L) 03/10/2020 CO2VEN 27 03/10/2020 ANIONGAP 15.2 03/10/2020 GLUCOSE 151 (H) 03/10/2020 BUN 14 03/10/2020 CREATININE 0.79 (L) 03/10/2020 BCRATIO8 18 03/10/2020 TOTALPROTEIN 7.2 03/10/2020 ALBUMIN 4.8 03/10/2020 CALCIUM 9.4 03/10/2020 TBIL 0.5 03/10/2020 SGPTALT 30 03/10/2020 ALKALINEPHO 79 03/10/2020 GFRNA >60 03/10/2020 GFRA >60 03/10/2020 Lab Results Component Value Date [id number] 296 09/12/2020 Total time spent on this encounter on this date of service, including pre-visit review of separately obtained history, [id number] interaction performing medically appropriate physical exam, patientcounseling/education, interpretation of diagnostic results, care coordination and documentation was30 minutes. By: Avinash Gonzalez MD, 03/20/2021, 9:21 AM RETAIL ACCOUNT SPECIALIST Primary Care Physician: ELIANA HOUSTON MD [place] ACCOUNT SPECIALIST documented in this encounter Plan of Treatment Not on file documented as of this encounter Visit Diagnoses Diagnosis Polyneuropathy- Primary Unspecified hereditary and idiopathic peripheral neuropathy Morbid obesity (HCC) Morbid obesity B12 deficiency Other B-complex deficiencies Ulcerative colitis with complication, unspecified location (HCC) documented in this encounter Care Teams Council On Aging Director Relationship Specialty Start Date End Date Eliana Houston MD PCP - General Family Medicine 03/20/21 documented as of this encounter
--- OUTSIDE RECORDS SUMMARY | 2024-01-30 08:06 | XMS_ITS | Encounter Summary ---
Author Organization [facility] Care Team Providers Care Underwriting Operations Manager Name Role Phone Mike Mitchell MD Primary Care Provider Encounter Details Date Type Department Care Team (Latest Contact Info) Description 03/20/2021 Travel Social History Tobacco Use Types Packs/Day Years [...] COVID-19? No / Unsure 03/20/2021 8:58 AM PROGRAMMER documented as of this encounter Plan of Treatment Not on file documented as of this encounter Visit Diagnoses Not on filedocumented in this encounter Care Teams Underwriting Operations Manager Relationship Specialty Start Date End Date Mike Mitchell MD PCP - General Family Medicine 03/20/21 documented as of this encounter
--- OUTSIDE RECORDS SUMMARY | 2024-01-30 08:06 | XMS_ITS | Encounter Summary ---
Author Organization [facility] Address [address] [place] [address] Phone Care Team Providers Care Oil Pipe Inspector Name Role Phone Eliana Houston MD Primary Care Provider [phone] Maldonado Gracia MD Unavailable Reason for Visit * Reason Comments New Patient Erectile Dysfunction * Consult, Test & Initiate Treatment (Routine) - Closed Specialty Diagnoses / Procedures Referred By Roberto t Referred To Contact Urology Diagnoses Male erectile dysfunction, unspecified Jennifer Francois APRN Phone: tel: fax: [facility] [address] [place] [address] Phone: tel: fax: Referral ID Status Reason Start Date Expiration Date Visits Re quested Visits Authorized [id number] Closed 1 1 Encounter Details Date Type Department Care Team (Late st Contact Info) Description 10/12/2023 8:00 AM CDT Office Visit [facility] [address] [facility] [address] Maldonado Gracia MD [address] [phone] (work) Erectile dysfunction, unspecified erectile dysfunction type (Primary Dx) Discharge Disposition: Discharged to home or Selfcare Social History Tobacco Use Types Packs/Day Years Used Date Smoking Tobacco: Never Smokeless Tobacco: Never Tobacco Cessation:Counseling Given: Not Answered Alcohol Use Standard Drinks/Week Comments Yes 5 (1 standard drink = 0.6 oz pur e alcohol) Sex and Gender Information Value Date Recorded Sex Assigned at Not on file Legal Sex Male 11:46 AM CDT Gender Identity Not on file Sexual Orientation Not on file documented as of this encounter Last Filed Vital Signs Vital Sign Reading Time Taken Comments Blood Pressure 172/92 10/12/2023 7:58 AM CDT Pulse 75 10/12/2023 7:58 AM CDT Temperature - - Respiratory Rate 20 10/12/2023 7:58 AM CDT Oxygen Saturation 97% 10/12/2023 7:58 AM CDT Inhaled Oxygen Concentration - - Weight 115.7 kg (255 lb) 10/12/2023 7:58 AM CDT Height 182.9 cm (6') 10/12/2023 7:58 AM CDT Body Mass Index 34.58 10/12/2023 7:58 AM CDT documented in this encounter Progress Notes * Maldonado Gracia MD - 10/12/2023 8:00 AM CDT UROLOGY [facility] [address] [facility], [address] [place] [address] PHONE: FAX: Assessment & Plan Erectile dysfunction-patient with significant comorbidities history of ulcerative colitis with current working diagnosis of Crohn's. Status post J-pouch currently on immunotherapy. --failed oral medications: Failed vacuum device Plan: Recommendations for IPP have been made considering the patient's overall prognosis with his erectile dysfunction and has chronic disease. We will refer to Dr. Jiménez for evaluation patient is aware that the procedure can not be done here at the hospital -in the interim the patient will trial vacuum device plus medication Subjective: 10/12/2023 HPI: HPI: Kris Gio Jordy presents with a chief complaint of progressive erectile dysfunction greater than 5 years Patient was initially diagnosed with the Reginaldo diff colitis he had a total colectomy with a J-pouch but then the patient started develop inflammation in the small bowel raising the concern for possible Crohn's. Patient is on high dose immunotherapy with monthly infusions. Progressively worsening erectile dysfunction with an inability to penetrate. -prostate cancer screening discussed patient will check to see if he has any PSAs drawn has a patient has been on testosterone replacement therapy for quite a few years. Allergies Allergen Reactions [place]ad Oil Hives Tomato Hives Iron Rash Sulfa Antibiotics Hives Current Outpatient Medications on File Prior to Visit Medication Sig Dispense Refill acetaminophen-codeine 300-30 MG PO TABS Take 1-2 Tabs by mouth every 4 hours as needed for Pain. 30Tab 0 allopurinol (ZYLOPRIM) 100 MG Tablet TAKE 1 TABLET BY MOUTH TWICE A DAY 5 Ascorbic Acid (VITAMIN C PO) Take by mouth. CALCIUM CITRATE PO Take by mouth. chlorthalidone (HYGROTON) 25 MG Tablet TAKE 1 TABLET BY ORAL ROUTE EVERY DAY 3 gabapentin (NEURONTIN) 300 MG Capsule Take 1 Capsule by mouth 2 times daily AND 2 Capsules 2 times daily. 1 capsule at 8 am 2 capsules at 2 pm, 2 capsules at 6 pm and one at 10 pm. (Patient taking differently: Take 1 Capsule by mouth 3 times daily) 540 Capsule 1 inFLIXimab (REMICADE IV) by Intravenous route. KLOR-CON 20 MEQ PO PACK daily. lisinopril (PRINIVIL, ZESTRIL) 10 MG Tablet Take 10 mg by mouth daily. loperamide (IMODIUM A-D) 1 MG/7.5ML Suspension Take by mouth. Multiple Vitamin (MULTIVITAMIN PO) Take by mouth. NEXIUM 24HR 20 MG CAPSULE DELAYED RELEASE TAKE 2 TABLETS BY MOUTH EVERY DAY 3 phenazopyridine 200 MG PO TABS Take 1 Tab by mouth 3 times daily for 10 days. 30 Tab 0 SILDENAFIL 20 MG PO TABS 5 mg. sulfaSALAzine (AZULFIDINE) 500 MG Tablet Take 2 tablets up to three times a day as needed TESTOSTERONE TD by Transdermal route. VITAMIN D PO Take by mouth. No current facility-administered medications on file prior to visit. Past Medical History Positives Diagnosis Date Anemia History of stomach ulcers Hypertension Ulcerative colitis (HCC) Past Surgical History: Procedure Laterality Date COLON SURGERY colon removal, j-pouch construction COLOSTOMY colostomy reversal HERNIA REPAIR HERNIA REPAIR OTHER SURGICAL HISTORY stomach muscle reconstruction Family History Problem Relation Age of Onset Hypertension Father Stroke Father Cancer Father Throat cancer Social History Socioeconomic History Marital status: Spouse name: Not on file Number of children: Not on file Years of education: Not on file Highest education level: Not on file Occupational History Not on file Tobacco Use Smoking status: Never Smokeless tobacco: Never Vaping Use Vaping status: Never Used Substance and Sexual Activity Alcohol use: Yes Alcohol/week: 3.0 oz Types: 6 drink(s) per week Drug use: No Sexual activity: Not on file Other Topics Concern Not on file Social History Narrative Not on file Social Determinants of Health Financial Resource Needs: Not on file Food Insecurity Needs: Not on file Transportation Needs: Not on file Physical Activity: Not on file Stress: Not on file Social Integration: Not on file Intimate Partner Violence: Not At Risk (06/06/2023) Received from [place], [place] and Affiliate Partners Intimate Partner Violence Are you in a relationship with someone who hurts you emotionally and/or physically?: No Housing Stability: Not on file ROS: Review of systems was negative, except as documented in HPI. Objective: Vital signs: BP (!) 172/92 (BP Location: Left Arm) Pulse 75 Resp 20 Ht 6' (1.829 m) Wt 255 lb (115.7 kg) SpO2 97% BMI 34.58 kg/m?? Vitals: 10/12/23 0758 PainSc: 0 - No pain GENERAL: Normal appearance. Patient is sitting in the exam room comfortably. EYES: Extraocular movements intact. No scleral icterus, normal conjuctiva. ENT: Normal external appearance; oral mucosa is pink and moist. NECK: Symmetrical, no visible thyromegaly or masses. CARDIAC: Regular rate RESPIRATORY: Unlabored respirations. Symmetric chest expansion. GASTROINTESTINAL: Abdomen soft, non-tender. MUSCULOSKELETAL: No obvious cyanosis or clubbing of digits SKIN: Skin appears pink and dry. No obvious rashes over face, neck, or arms. PSYCHIATRIC: Normal judgment and insight. Oriented to person, place, and time; mood and affect are normal. Lab Results Component Value Date WBC 8.48 03/10/2020 HEMOGLOBIN 15.7 03/10/2020 HEMATOCRIT 44.8 03/10/2020 PLATELETCNT 229 03/10/2020 MCV 87.0 03/10/2020 Lab Results Component Value Date SODIUM 136 03/10/2020 POTASSIUM 3.2 (L) 03/10/2020 CHLORIDE 97 (L) 03/10/2020 CO2VEN 27 03/10/2020 ANIONGAP 15.2 03/10/2020 GLUCOSE 151 (H) 03/10/2020 BUN 14 03/10/2020 CREATININE 0.79 (L) 03/10/2020 BCRATIO8 18 03/10/2020 TOTALPROTEIN 7.2 03/10/2020 ALBUMIN 4.8 03/10/2020 CALCIUM 9.4 03/10/2020 TBIL 0.5 03/10/2020 SGOTAST 22 03/10/2020 SGPTALT 30 03/10/2020 ALKALINEPHO 79 03/10/2020 GFRNA >60 03/10/2020 GFRA >60 03/10/2020 No results found for: PSASCREEN , PSA , PSAFREE , PSAPCNTFREE , PSATOTAL Results for orders placed or performed in visit on 08/30/17 CULTURE, URINE Specimen: Urine; Culture Result Value Ref Range Status CULTURE RESULTS Final GROWTH OF 1 OR MORE ORGANISMS, ALL ARE LESS THAN 10,000 CFU/ML . SUGGESTIVE OF DISTAL URETHRAL CONTAMINANTS. No results found for: TESTOSTTTL No results found for this or any previous visit from the past 365 days. No results found for this or any previous visit from the past 365 days. No results found for this or any previous visit from the past 365 days. Kris was seen today for new patient and erectile dysfunction. Diagnoses and all orders for this visit: Erectile dysfunction, unspecified erectile dysfunction type - POCT UA AUTOMATED W/O MICRO By: Maldonado Gracia MD, 10/12/2023, 3:11 PM CDT Primary Care Physician: ELIANA HOUSTON MD documented in this encounter Plan of Treatment Not on file documented as of this encounter Procedures Procedure Name Priority Date/Time Associated Diagnosis Comments POCT UA AUTOMATED W/O MICRO Routine 10/12/2023 8:00 AM CDT Erectile dysfunction, unspecified erectile dysfunction type documented in this encounter Results * POCT UA AUTOMATED W/O MICRO (10/12/2023 8:00 AM CDT) POC UA SPECIFIC GRAVITY 1.020 URINE PH 5.0 5.0 - 9.0 POC URINE LEUKOCYTES Negative Negative Hanane/uL POC URINE NITRITE Negative Negative POC URINE PROTEIN Negative Negative mg/dL POC URINE GLUCOSE Norm Negative, Norm mg/dL POC URINE KETONE Negative Negative mg/dL POC URINE UROBILINOGEN Norm Norm, 0.2 E.U./dL (mg/dL), 1 E.U./dL (mg/dL) POC URINE BILIRUBIN Negative Negative mg/dL POC URINE BLOOD INSTRUMENT Negative Negative Jp/uL POC URINE COLOR Yellow POC URINE CLARITY Clear Urine 10/12/2023 8:00 AM CDT Maldonado Gracia MD POINT OF CARE TESTING (MANUAL) F inal Result documented in this encounter Visit Diagnoses Diagnosis Erectile dysfunction, unspecified erectile dysfunction type- Primary documented in this encounter Care Teams Oil Pipe Inspector Relationship Specialty Start Date End Date Eliana Houston MD PCP - General Family Medicine 03/20/21 Maldonado Gracia MD [address] [id number] Consulting Physician Urology 10/12/23 documented as of this encounter
--- OUTSIDE RECORDS SUMMARY | 2024-01-30 08:06 | XMS_ITS | Encounter Summary ---
Author Organization [facility] Health Address [address] [facility] [place] [address] Care Team Providers Care Tapper Operator Name Role Phone Unavailable Primary Care Provider Unavailabl e Encounter Details Date Type Department Care Team (Late st Contact Info) Description 09/17/2022 Lab Requisition [facility] [address] [facility], [facility] [place] [address] Kishore Cuenca MD [facility] DERMAT[facility] [address] [place] [phone] Neoplasm of uncertain behavior of skin Social History Tobacco Use Types Packs/Day Years Used Date Smoking Tobacco: Never Assessed Sex and Gender Information Value Date Recorded Sex Assigned at Not on file Gender Identity Not on file Sexual Orientation Not on file documented as of this encounter Plan of Treatment Not on file documented as of this encounter Procedures Procedure Name Priority Date/Time Associated Diagnosis Comments DERMATOPATHOLOGY Routine 09/17/2022 12:0 0 AM CDT Neoplasm of uncertain behavior of skin documented in this encounter Results * DERMATOPATHOLOGY (09/17/2022 12:00 AM CDT) Case Report Dermatopathology Report ? Case: [id number] ? Authorizing Provider: ??Kishore Cuenca MD ? Collected: ? 09/17/2022 12:00 AM ? Ordering Location: ? [facility] ? Received: ?09/20/2022 01:06 PM ? Pathologist: ? Solomon Lima MD ? Specimen: ?Skin, left lateral thigh ? 3 5:01 PM T DERMATOPATHOLOGY LABORATORY Final Diagnosis Specimen A. SKIN, left lateral thigh: LICHEN SIMPLEX CHRONICUS (L28.0) 3 5:01 PM T DERMATOPATHOLOGY LABORATORY Clinical History Squamous Cell Carcinoma vs. Prurigo modular is 3 5:01 PM T DERMATOPATHOLOGY LABORATORY Gross Description Specimen A: Received is one formalin filled container labeled with the patient's name and designated left lateral thigh. The specimen consists of a shave biopsy measuring [id number] mm. Jar 0. 3 5:01 PM T [...] characteristic determined by the Dermatopathology Laboratory at [facility], directed by Dr. Blanco Lima. These tests need not be, and therefore are not, approved by the [place] Food and Drug Administration. The tests are used for clinical purposes. Billing Codes Specimen Charges Stain Charges 01579 1 3 5:01 PM CDT DERMATOPATHOLOGY LABORATORY Embedded Images 3 5:01 PM CDT DERMATOPATHOLOGY LABORATORY Pathology/Cytolog y TISSUE SPECIMEN FROM SKIN / Unknown 09/17/2022 09/20/2022 1:06 PM CDT Kishore Cuenca MD LAB - PATHOLOGY/CYTO LOGY ORDERABLES DERMATOPATHOLOGY LABORATORY [facility] - Department of Dermatology [facility] Medicine [address] [place] [address], [address] [phone] documented in this encounter Visit Diagnoses Diagnosis Neoplasm of uncertain behavior of skin documented in this encounter
--- OUTSIDE RECORDS SUMMARY | 2024-01-30 08:06 | XMS_ITS | Clinical Summary ---
Author Organization [facility] Address [address] [place] [address] Care Team Providers Care Welder Tack Name Role Phone Mike Mitchell MD Primary Care Provider [phone] Maldonado Gracia MD Unavailable Allergies Active Allergy Reactions Criticality Noted Date Comments Iron Rash 08/16/2013 [place] Oil Hives Medium 09/16/2009 Sulfa Antibiotics Hives 10/14/2016 Tomato Hives Medium 09/16/2009 Medications KLOR-CON 20 MEQ PO PACKIndications :4 a day daily. 4 Active SILDENAFIL 20 MG PO TABS 5 mg. 4 Active phenazopyridine 200 MG PO TABSIndications :Flank pain,Kidney stone,Dysuria,R etained ureteral stent Take 1 Tab by mouth 3 times daily for 10 days. 30 Tab 0 4 Active acetaminophen-c odeine 300-30 MG PO TABS Take 1-2 Tabs by mouth every 4 hours as needed for Pain. 30 Tab 0 4 Active loperamide (IMODIUM A-D) 1 MG/7.5ML Suspension Take by mouth. Acti ve chlorthalidone (HYGROTON) 25 MG Tablet TAKE 1 TABLET BY ORAL ROUTE EVERY DAY 3 8 Active allopurinol (ZYLOPRIM) 100 MG Tablet TAKE 1 TABLET BY MOUTH TWICE A DAY 5 8 Active NEXIUM 24HR 20 MG CAPSULE DELAYED RELEASE TAKE 2 TABLETS BY MOUTH EVERY DAY 3 8 Active CALCIUM CITRATE PO Take by mouth. Activ e Multiple Vitamin (MULTIVITAMIN PO) Take by mouth. Activ e Ascorbic Acid (VITAMIN C PO) Take by mouth. Active VITAMIN D PO Take by mouth. Ac tive inFLIXimab (REMICADE IV) by Intravenous route. Active lisinopril (PRINIVIL, ZESTRIL) 10 MG Tablet Take 10 mg by mouth daily. Active TESTOSTERONE TD by Transdermal route. Active gabapentin (NEURONTIN) 300 MG Capsule Take 1 Capsule by mouth 2 times daily AND 2 Capsules 2 times daily. 1 capsule at 8 am 2 capsules at 2 pm, 2 capsules at 6 pm and one at 10 pm. 540 Capsule 1 1 Active Additional Information Patient taking differently: Take 1 Capsule by mouth 3 times daily, Reported on 03/20/2021 sulfaSALAzine (AZULFIDINE) 500 MG Tablet Take 2 tablets up to three times a day as needed 2 Active Active Problems No known active problems Family History Medical History Relation Name Comments Cancer Father Throat cancer Hypertension Father Stroke Father Relation Name Status Comments Father Mother Social History Tobacco Use Types Packs/Day Years [...] on file Sexual Orientation Not on file Last Filed Vital Signs Vital Sign Reading Time Taken Comments Blood Pressure 172/92 10/12/2023 7:58 AM CDT Pulse 75 10/12/2023 7:58 AM CDT Temperature 36.7 ??C (98 ??F) 03/20/2021 9:09 AM INFORMATION SUPPORT PROJECT MANAGER Respiratory Rate 20 10/12/2023 7:58 AM CDT Oxygen Saturation 97% 10/12/2023 7:58 AM CDT Inhaled Oxygen Concentration - - Weight 115.7 kg (255 lb) 10/12/2023 7:58 AM CDT Height 182.9 cm (6') 10/12/2023 7:58 AM CDT Body Mass Index 34.58 10/12/2023 7:58 AM CDT Plan of Treatment Health Maintenance Due Date Last Done Comments Hepatitis C Virus (HCV) Screening 1960 TdaP Immunization 1959 Cologuard 2009 Immunochemical Fecal Occult Blood 2009 Pneumococcal Immunization (5 0+ years) (1 of 1 - PCV) 2009 PSA Discussion 2014 Influenza Immunization (#1) 2023 SARS-COV-2 Immunization ( season) 2023 10/06/2020, 09/09/2020 Colonoscopy 07/13/2028 07/13/2018 Colorectal Cancer Screening 07/13/2028 Respiratory Syncytial Virus (RSV) Immunization (Adult) (1 - 1-dose 75+ series) 2034 07/13/2018 Hepatitis B Immunization Completed 017, 2016, 02/10/2016 Zoster Immunization Completed 03/27/2019, 01/23/2019 Meningococcal Immunization (ACWY) Aged Out No longer eligible b ased on patient's age to complete this topic Pneumococcal Immunization Combined Aged Out No longer eligible b ased on patient's age to complete this topic Rotavirus Immunization Aged Out No lo nger eligible based on patient's age to complete [place] [address] [facility] OA Care Teams Welder Tack Relationship Specialty Start Date End Date Mike Mitchell MD PCP - General Family Medicine 03/20/21 Maldonado Gracia MD [address] [place] [phone] Consulting Physician Urology 10/12/23
--- OUTSIDE RECORDS SUMMARY | 2024-01-30 08:06 | XMS_ITS | Encounter Summary ---
Author Organization [employer] Care Team Providers Care Reptile Farmer Name Role Phone Mike Mitchell MD Primary Care Provider [phone] Maldonado Gracia MD Unavailable Encounter Details Date Type Department Care Team (Latest Contact Info) Description 10/12/2023 Travel Social History Tobacco Use Types Packs/Day [...] on filedocumented in this encounter Care Teams Reptile Farmer Relationship Specialty Start Date End Date Mike Mitchell MD PCP - General Family Medicine 03/20/21 Maldonado Gracia MD [address] [address] Consulting Physician Urology 10/12/23 documented as of this encounter
--- OUTSIDE RECORDS SUMMARY | 2024-01-30 08:07 | XMS_ITS | Encounter Summary ---
Author Organization [facility] Care Team Providers Care Assistance Specialist Name Role Phone Scott Randle DO Primary Care Provider [phone] Encounter Details Date Type Department Care Team (Latest Contact Info) Description 06/09/2020 Travel Social History Tobacco Use Types Packs/Day [...] have Coronavirus / COVID-19? No / Unsure 06/09/2020 10:51 AM CDT documented as of this encounter Plan of Treatment Not on file documented as of this encounter Visit Diagnoses Not on filedocumented in this encounter Care Teams Assistance Specialist Relationship Specialty Start Date End Date Scott Randle DO [address] [place] [address] PCP - General Family Medicine 01/31/20 03/19/21 documented as of this encounter
--- OUTSIDE RECORDS SUMMARY | 2024-01-30 08:07 | XMS_ITS | Encounter Summary ---
Author Organization [facility] Address [address] [facility] [place] [address] Phone Care Team Providers Care Customer Service Advisor Name Role Phone Nolan Castro DO Primary Care Provider [phone] Reason for Visit * Reason Comments polyneuropathy Encounter Details Date Type Department Care Team (Late st Contact Info) Description 12/15/2020 9:30 AM CONSULTING SERVICES PROJECT MANAGER Office Visit [facility] - Neurology [facility] [address] [place] [phone] Avinash Gonzalez MD [address] [place] [phone] Polyneuropathy (Primary Dx); Morbid obesity (HCC); B12 deficiency Discharge Disposition: Discharged to home or Selfcare [...] have Coronavirus / COVID-19? No / Unsure 12/15/2020 9:24 AM CONSULTING SERVICES PROJECT MANAGER documented as of this encounter Last Filed Vital Signs Vital Sign Reading Time Taken Comments Blood Pressure 140/100 12/15/2020 9:38 AM CONSULTING SERVICES PROJECT MANAGER Pulse 80 12/15/2020 9:38 AM CONSULTING SERVICES PROJECT MANAGER Temperature 36.9 ??C (98.4 ??F) 12/15/2020 9:38 AM CS T Respiratory Rate 17 12/15/2020 9:38 AM CONSULTING SERVICES PROJECT MANAGER Oxygen Saturation 97% 12/15/2020 9:38 AM CONSULTING SERVICES PROJECT MANAGER Inhaled Oxygen Concentration - - Weight 115.6 kg (254 lb 12.8 oz) 12/15/2020 9:38 AM CONSULTING SERVICES PROJECT MANAGER Height 182.9 cm (6') 12/15/2020 9:38 AM CONSULTING SERVICES PROJECT MANAGER Body Mass Index 34.56 12/15/2020 9:38 AM CONSULTING SERVICES PROJECT MANAGER documented in this encounter Progress Notes * Avinash Gonzalez MD - 12/15/2020 9:30 AM CST NEUROLOGY CONSULT Date of Service: 12/15/2020 Assessment and Plan Kris was seen today for polyneuropathy. Diagnoses and all orders for this visit: Polyneuropathy - will increase patient's gabapentin as noted to 1 in the morning, 2 in the afternoon, 2 in the early evening and 1 right before bed - will supplement patient's B12 which is borderline low with uipf-vfz-mqfgejz B12 supplementation - patient to start using a 10s unit Morbid obesity (HCC) B12 deficiency - less B12 is 296 Other orders - gabapentin (NEURONTIN) 300 MG Capsule; Take 1 Capsule by mouth 2 times daily AND 2 Capsules 2 times daily. 1 capsule at 8 am 2 capsules at 2 pm, 2 capsules at 6 pm and one at 10 pm. Reason for Consultation: polyneuropathy HPI: Randell notes a modest that when adequate benefit from gabapentin. He denies any side effects from it at this time. He was having dizziness but has found that that was associated with his metoprolol and it has improved significantly since he stopped taking it. Previous History: Randell notes modest improvement with [...] drink(s) per week Allergies Allergen Reactions ??? [place] Oil Hives ??? Tomato Hives ??? Iron [...] MG Capsule, Take 1 Capsule by mouth 4 times daily., Disp: 120 Capsule, Rfl: 3 ??? inFLIXimab (REMICADE IV), by Intravenous route., Disp: , Rfl: ??? KLOR-CON 20 MEQ PO PACK, daily., Disp: , Rfl: ??? lisinopril (PRINIVIL, ZESTRIL) 10 MG Tablet, Take 10 mg by mouth daily., Disp: , Rfl: ??? loperamide (IMODIUM A-D) 1 MG/7.5ML Suspension, Take by mouth., Disp: , Rfl: ??? METOPROLOL TARTRATE 50 MG PO TABS, , Disp: , Rfl: ??? Multiple Vitamin (MULTIVITAMIN [...] TABS, 5 mg., Disp: , Rfl: ??? TESTOSTERONE TD, by Transdermal route., Disp: , Rfl: ??? VITAMIN D PO, Take by mouth., Disp: , Rfl: Review of Systems: A 14 point Review of Systems is obtained, and is negative other than that mentioned in the History of Present Illness. Objective: VITALS: Blood pressure (!) 140/100, pulse 80, temperature 98.4 ??F (36.9 ??C), temperature source Tympanic, resp. rate 17, height 6' (1.829 m), weight 254 lb 12.8 oz (115.6 kg), SpO2 97 %. Weight: Wt Readings from Last 1 Encounters: 12/15/20 254 lb 12.8 oz (115.6 kg) Body mass index is 34.56 kg/m??. EXAM: General appearance: alert, no distress, [...] Flexors 5/5 5/5 Wrist Extensors 5/5 5/5 Weed Cooking Operator 5/5 5/5 Hip Flexors 5/5 5/5 Quadriceps [...] >60 03/10/2020 Lab Results Component Value Date [id number] 09/12/2020 Total time spent on this encounter on this date of service, including pre-visit review of separately obtained history, vuom-gr-pvjz interaction performing medically appropriate physical exam, patientcounseling/education, interpretation of diagnostic results, care coordination and documentation was30 minutes. By: Avinash Gonzalez MD, 12/15/2020, 10:01 AM CONSULTING SERVICES PROJECT MANAGER Primary Care Physician: NOLAN CASTRO DO ULTING SERVICES PROJECT MANAGER documented in this encounter Plan of Treatment Not on file documented as of this encounter Visit Diagnoses Diagnosis Polyneuropathy- Primary Unspecified hereditary and idiopathic peripheral neuropathy Morbid obesity (HCC) Morbid obesity B12 deficiency Other B-complex deficiencies documented in this encounter Care Teams Customer Service Advisor Relationship Specialty Start Date End Date Nolan Castro DO [address] [place] [address] PCP - General Family Medicine 01/31/20 03/19/21 documented as of this encounter
--- OUTSIDE RECORDS SUMMARY | 2024-01-30 08:07 | XMS_ITS | Encounter Summary ---
Author Organization [facility] Address [address] [facility] [place] [address] Phone Care Team Providers Care Zone Supervisor Firearms Name Role Phone Nolan Castro DO Primary Care Provider [phone] Reason for Visit * Reason Comments Peripheral Neuropathy Encounter Details Date Type Department Care Team (Late st Contact Info) Description 09/12/2020 10:00 AM CDT Office Visit [facility] - Neurology [facility] [address] [place] [phone] Avinash Gonzalez MD [address] [place] [phone] Polyneuropathy (Primary Dx) Discharge Disposition: Discharged to home [...] have Coronavirus / COVID-19? No / Unsure 09/12/2020 9:47 AM CDT documented as of this encounter Last Filed Vital Signs Vital Sign Reading Time Taken Comments Blood Pressure 130/90 09/12/2020 9:55 AM CDT Pulse 63 09/12/2020 9:55 AM CDT Temperature 36.2 ??C (97.2 ??F) 09/12/2020 9:55 AM CD T Respiratory Rate 18 09/12/2020 9:55 AM CDT Oxygen Saturation 97% 09/12/2020 9:55 AM CDT Inhaled Oxygen Concentration - - Weight 115.7 kg (255 lb) 09/12/2020 9:55 AM CDT Height 182.9 cm (6') 09/12/2020 9:55 AM CDT Body Mass Index 34.58 09/12/2020 9:55 AM CDT documented in this encounter Progress Notes * Avinash Gonzalez MD - 09/12/2020 10:00 AM CDT NEUROLOGY CONSULT Date of Service: 09/12/2020 Assessment and Plan Kris was seen today for peripheral neuropathy. Diagnoses and all orders for this visit: Polyneuropathy - will increase patient's gabapentin to provide extra evening and nighttime coverage - also discussed the option of a TENS unit - will check a B12 and methylmalonic acid level - VITAMIN B12; Future - METHYLMALONIC ACID, QN, MMAS; Future Other orders - Discontinue: gabapentin (NEURONTIN) 300 MG Capsule; Take 1 Capsule by mouth 4 times daily. - gabapentin (NEURONTIN) 300 MG Capsule; Take 1 Capsule by mouth 4 times daily. . Reason for Consultation: polyneuropathy HPI: Randell notes modest improvement with gabapentin which [...] drink(s) per week Allergies Allergen Reactions ??? [place] Oil Hives ??? Tomato Hives ??? Iron [...] MG Capsule, Take 1 Capsule by mouth 3 times daily., Disp: 90 Capsule, Rfl: 3 ??? inFLIXimab (REMICADE IV), by Intravenous route., Disp: , Rfl: ??? KLOR-CON 20 MEQ PO PACK, daily., Disp: , Rfl: ??? loperamide (IMODIUM [...] TABS, 5 mg., Disp: , Rfl: ??? tamsulosin (FLOMAX) 0.4 MG Capsule, TAKE 1 CAPSULE BY ORAL ROUTE DAILY, Disp: , Rfl: 5 ??? VITAMIN D PO, Take by mouth., Disp: , Rfl: Review of Systems: A 14 point Review of Systems is obtained, and is negative other than that mentioned in the History of Present Illness. Objective: VITALS: Blood pressure 130/90, pulse 63, temperature 97.2 ??F (36.2 ??C), temperature source Tympanic, resp. rate 18, height 6' (1.829 m), weight 255 lb (115.7 kg), SpO2 97 %. Weight: Wt Readings from Last 1 Encounters: 09/12/20 255 lb (115.7 kg) Body mass index is 34.58 kg/m??. EXAM: General appearance: alert, no distress, [...] Flexors 5/5 5/5 Wrist Extensors 5/5 5/5 Education Trainer 5/5 5/5 Hip Flexors 5/5 5/5 Quadriceps [...] >60 03/10/2020 Lab Results Component Value Date [id number] 03/10/2020 Total time spent on this encounter on this date of service, including pre-visit review of separately obtained history, pflu-pa-scyl interaction performing medically appropriate physical exam, patientcounseling/education, interpretation of diagnostic results, care coordination and documentation was30 minutes. By: Avinash Gonzalez MD, 09/12/2020, 10:10 AM CDT Primary Care Physician: NOLAN CASTRO DO documented in this encounter Plan of Treatment Not on file documented as of this encounter Results * METHYLMALONIC ACID, QN, MMAS (09/12/2020 11:01 AM CDT) METHYLMALONIC ACID, QN 0.20 <=0.40 nmol/mL 09/17/2020 11:18 AM CDT [facility] Comment: ADDITIONAL INFORMATION This test was developed and its performance characteristics determined by [facility] in a manner consistent with CLIA requirements. This test has not been cleared or approved by the U.S. Food and Drug Administration. Test Performed by: [address] [address] Senior Application Security Consultant: Cam Molina M.D. Ph.D.; CLIA# [id number] Blood Venipuncture / Unknown 09/12/2020 11:01 AM CDT 09/12/2020 11:01 AM CDT us Avinash Gonzalez MD LAB SEND OUTS Final Result [address] [address], * VITAMIN B12 (09/12/2020 11:01 AM CDT) VITAMIN B12 296 243 - 894 pg/mL 09/12/2020 3:40 PM CDT [facility] Blood Venipuncture / Unknown 09/12/2020 11:01 AM CDT 09/12/2020 11:01 AM CDT us Avinash Gonzalez MD CHEMISTRY ORDERABLES Final R esult [facility] [address] [place] [address] documented in this encounter Visit Diagnoses Diagnosis Polyneuropathy- Primary Unspecified hereditary and idiopathic peripheral neuropathy documented in this encounter Care Teams Zone Supervisor Firearms Relationship Specialty Start Date End Date Nolan Castro DO [address] [place] [address] PCP - General Family Medicine 01/31/20 03/19/21 documented as of this encounter
--- OUTSIDE RECORDS SUMMARY | 2024-01-30 08:07 | XMS_ITS | Encounter Summary ---
Author Organization [employer] Care Team Providers Care Tripe Washer Name Role Phone Scott Randle DO Primary Care Provider [phone]- [phone] Encounter Details Date Type Department Care Team (Latest Contact Info) Description 12/15/2020 Travel Social History Tobacco Use Types Packs/Day [...] COVID-19? No / Unsure 12/15/2020 9:24 AM DATA STEWARD documented as of this encounter Plan of Treatment Not on file documented as of this encounter Visit Diagnoses Not on filedocumented in this encounter Care Teams Tripe Washer Relationship Specialty Start Date End Date Scott Randle DO [address] [place] [address] PCP - General Family Medicine 01/31/20 03/19/21 documented as of this encounter
--- OUTSIDE RECORDS SUMMARY | 2024-01-30 08:07 | XMS_ITS | Encounter Summary ---
Author Organization [facility] Address [address] [facility] [place] [address] Phone Care Team Providers Care I O Psychologist Name Role Phone Nolan Castro DO Primary Care Provider [phone] Reason for Visit * Reason Comments Peripheral Neuropathy Encounter Details Date Type Department Care Team (Late st Contact Info) Description 06/09/2020 11:00 AM CDT Office Visit [facility] - Neurology [facility] [address] [place] [phone] Avinash Gonzalez MD [address] [place] [phone] Polyneuropathy (Primary Dx); Morbid obesity (HCC); Prediabetes Discharge Disposition: Discharged to home or Selfcare [...] Reading Time Taken Comments Blood Pressure 130/90 06/09/2020 11:05 AM CDT Pulse 59 06/09/2020 11:05 AM CDT Temperature 37.1 ??C (98.8 ??F) 06/09/2020 11:05 AM C DT Respiratory Rate 17 06/09/2020 11:05 AM CDT Oxygen Saturation 95% 06/09/2020 11:05 AM CDT Inhaled Oxygen Concentration - - Weight 116.8 kg (257 lb 8 oz) 06/09/2020 11:05 A M CDT Height 182.9 cm (6') 06/09/2020 11:05 AM CDT Body Mass Index 34.92 06/09/2020 11:05 AM CDT documented in this encounter Progress Notes * Avinash Gonzalez MD - 06/09/2020 11:00 AM CDT NEUROLOGY CONSULT Date of Service: 06/09/2020 Assessment and Plan Kris was seen today for peripheral neuropathy. Diagnoses and all orders for this visit: Polyneuropathy - Increase gabapentin to 300 t.i.d. to address daytime symptoms of neuropathy - discussed dietary controls within the limitations of his ulcerative colitis to improve his prediabetes including portion control - reviewed patient's lab work which showed a borderline low B12 and low vitamin- D and addressed supplementation of both of those - reviewed EMG results Morbid obesity (HCC) - Discussed weight loss Prediabetes - A1c is 5.8 Other orders - gabapentin (NEURONTIN) 300 MG Capsule; Take 1 Capsule by mouth 3 times daily. Reason for Consultation: polyneuropathy HPI: Kris notes improvement in his neuropathy. Reviewed [...] drink(s) per week Allergies Allergen Reactions ??? [place] Oil Hives ??? Tomato Hives ??? Iron [...] ROUTE DAILY, Disp: , Rfl: 5 ??? ustekinumab (STELARA) 90 MG/ML Solution Prefilled Syringe, , Disp: , Rfl: ??? VITAMIN D PO, Take by mouth., Disp: , Rfl: Review of Systems: A 14 point Review of Systems is obtained, and is negative other than that mentioned in the History of Present Illness. Objective: VITALS: Blood pressure 130/90, pulse 59, temperature 98.8 ??F (37.1 ??C), temperature source Tympanic, resp. rate 17, height 6' (1.829 m), weight 257 lb 8 oz (116.8 kg), SpO2 95 %. Weight: Wt Readings from Last 1 Encounters: 06/09/20 257 lb 8 oz (116.8 kg) Body mass index is 34.92 kg/m??. EXAM: General appearance: alert, no distress, [...] Flexors 5/5 5/5 Wrist Extensors 5/5 5/5 Manager Employment 5/5 5/5 Hip Flexors 5/5 5/5 Quadriceps [...] 03/10/2020 GFRNA >60 03/10/2020 GFRA >60 03/10/2020 Total time spent on this encounter on this date of service, including pre-visit review of separately obtained history, lgao-ro-xema interaction performing medically appropriate physical exam, patientcounseling/education, interpretation of diagnostic results, care coordination and documentation was45 minutes. By: Avinash Gonzalez MD, 06/09/2020, 12:14 PM CDT Primary Care Physician: NOLAN CASTRO DO documented in this encounter Plan of Treatment Not on file documented as of this encounter Visit Diagnoses Diagnosis Polyneuropathy- Primary Unspecified hereditary and idiopathic peripheral neuropathy Morbid obesity (HCC) Morbid obesity Prediabetes Other abnormal glucose documented in this encounter Care Teams I O Psychologist Relationship Specialty Start Date End Date Nolan Castro DO [address] [place] [address] PCP - General Family Medicine 01/31/20 03/19/21 documented as of this encounter
--- OUTSIDE RECORDS SUMMARY | 2024-01-30 08:07 | XMS_ITS | Encounter Summary ---
Author Organization [employer] Care Team Providers Care Wheel Alignment Technician Name Role Phone Scott Randle DO Primary Care Provider [phone]- [phone] Encounter Details Date Type Department Care Team (Latest Contact Info) Description 09/12/2020 Travel Social History Tobacco Use Types Packs/Day [...] on filedocumented in this encounter Care Teams Wheel Alignment Technician Relationship Specialty Start Date End Date Scott Randle DO [address] [place] [address] PCP - General Family Medicine 01/31/20 03/19/21 documented as of this encounter
--- OUTSIDE RECORDS SUMMARY | 2024-01-30 08:08 | XMS_ITS | Encounter Summary ---
Author Organization [facility] Care Team Providers Care File Machine Operator Name Role Phone Les Kruger MD Primary Care Provider [phone] Encounter Details Date Type Department Care Team (Latest Contact Info) Description 12/19/2019 Travel Social History Tobacco Use Types Packs/Day [...] have Coronavirus / COVID-19? No / Unsure 12/19/2019 8:32 AM HANDLING TECH documented as of this encounter Plan of Treatment Not on file documented as of this encounter Visit Diagnoses Not on filedocumented in this encounter Care Teams File Machine Operator Relationship Specialty Start Date End Date Les Kruger MD [address] [place] [address] PCP - General Family Medicine 08/06/13 01/30/20 documented as of this encounter
--- OUTSIDE RECORDS SUMMARY | 2024-01-30 08:08 | XMS_ITS | Encounter Summary ---
Author Organization [facility] Address [address] [facility] [place] [address] Phone Care Team Providers Care Family Support Specialist Name Role Phone Scott Randle DO Primary Care Provider [phone]- [phone] Reason for Visit * Reason Comments Tingling Numbness Pain * Other (Routine) - Closed Specialty Diagnoses / Procedures Referred By Roberto moura Referred To Contact Neurology Diagnoses Polyneuropathy Procedures EMG 4 EXTREMITY W/WO RELATED PARASPINAL Avinash Gonzalez MD Phone: tel: fax: Referral ID Status Reason Start Date Expiration Date Visits Re quested Visits Authorized [id number] Closed 03/10/2020 1 1 Encounter Details Date Type Department Care Team (Late st Contact Info) Description 03/17/2020 11:30 AM LEAD MEDICAL TECHNOLOGIST EMG [facility] [address] [place] [phone] Avinash Gonzalez MD [address] [place] [phone] Polyneuropathy Discharge Disposition: Discharged to home or Selfcare [...] have Coronavirus / COVID-19? No / Unsure 03/17/2020 11:17 AM LEAD MEDICAL TECHNOLOGIST documented as of this encounter Progress Notes * Avinash Gonzalez MD - 03/17/2020 11:30 AM CST Please refer to procedure note. MEDICAL TECHNOLOGIST documented in this encounter Procedure Notes * Avinash Gonzalez MD - 03/17/2020 11:30 AM CSTAssociated Order(s): EMG 4 EXTREMITY W/WO RELATED PARASPINAL Electromyogram Procedure Note Date of Procedure: 03/17/2020 Pre-operative Diagnosis: bilateral upper and lower extremity numbness, tingling and pain. Post-operative Diagnosis: Indications: Diagnostic Procedure Details Motor Nerve Conduction Studies: The bilateral median motor nerve shows normal distal motor latency, normal motor amplitude and decreased conduction velocity. The left peroneal motor nerve shows normal distal motor latency, normal motor amplitude and decreased conduction velocity. The right peroneal motor nerve shows normal distal motor latency, decreased motor amplitude and decreased conduction velocity. The left tibial motor nerve shows prolonged distal motor latency, decreased motor amplitude and decreased conduction velocity. The right tibial motor nerve shows normal distal motor latency, decreased motor amplitude and decreased conduction velocity. The bilateral ulnar motor nerve shows normal distal motor latency, normal motor amplitude and normal conduction velocity. Sensory Nerve Conduction Studies: The bilateral median sensory nerve shows prolonged sensory nerve peak latency and decreased sensoryamplitude. The bilateral ulnar sensory nerve shows normal sensory nerve peak latency and normal sensory amplitude. The bilateral radial sensory nerve shows normal sensory nerve peak latency and normal sensory amplitude. The bilateral superficial peroneal sensory nerve peak latency was not reactive. The left sural sensory nerve peak latency was not reactive. The right sural sensory nerve shows normal sensory nerve peak latency and normal sensory amplitude. Median radial comparisons were prolonged, bilaterally. Median ulnar comparisons were normal, bilaterally. F waves: F wave latency for the left median nerve was normal. F wave latency for the right median nerve was prolonged. F wave latencies for the bilateral peroneal nerve were prolonged. F wave latencies for the bilateral tibial nerve were prolonged. F wave latencies for the bilateral ulnar nerve were normal. EMG: Needle EMG of the right APB, FDI, biceps, triceps, deltoid, gastrocnemius, anterior tibialis and vastus medialis was normal. Summary This is an abnormal study consistent with the followin. 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 2. 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 Clinical correlation is recommended. MEDICAL TECHNOLOGIST documented in this encounter Plan of Treatment Not on file documented as of this encounter Procedures Procedure Name Priority Date/Time Associated Diagnosis Comments EMG 4 EXTREMITY W/WO RELATED PARASPINAL Routine 03/17/2020 11:30 AM LEAD MEDICAL TECHNOLOGIST Polyneuropathy documented in this encounter Results * EMG 4 EXTREMITY W/WO RELATED PARASPINAL (03/17/2020 11:30 AM LEAD MEDICAL TECHNOLOGIST) Narrative Avinash Gonzalez MD - 03/17/2020 11:30 AM LEAD MEDICAL TECHNOLOGIST Avinash Gonzalez MD ? 03/19/2020 ??9:37 AM Electromyogram Procedure Note Date of Procedure: 03/17/2020 Pre-operative Diagnosis: bilateral upper and lower extremity numbness, tingling and pain. Post-operative Diagnosis: Indications: Diagnostic Procedure Details Motor Nerve Conduction Studies: The bilateral median motor nerve shows normal distal motor latency, normal motor amplitude and decreased conduction velocity. The left peroneal motor nerve shows normal distal motor latency, normal motor amplitude and decreased conduction velocity. The right peroneal motor nerve shows normal distal motor latency, decreased motor amplitude and decreased conduction velocity. The left tibial motor nerve shows prolonged distal motor latency, decreased motor amplitude and decreased conduction velocity. The right tibial motor nerve shows normal distal motor latency, decreased motor amplitude and decreased conduction velocity. The bilateral ulnar motor nerve shows normal distal motor latency, normal motor amplitude and normal conduction velocity. Sensory Nerve Conduction Studies: The bilateral median sensory nerve shows prolonged sensory nerve peak latency and decreased sensory amplitude. The bilateral ulnar sensory nerve shows normal sensory nerve peak latency and normal sensory amplitude. The bilateral radial sensory nerve shows normal sensory nerve peak latency and normal sensory amplitude. The bilateral superficial peroneal sensory nerve peak latency was not reactive. The left sural sensory nerve peak latency was not reactive. The right sural sensory nerve shows normal sensory nerve peak latency and normal sensory amplitude. Median radial comparisons were prolonged, bilaterally. Median ulnar comparisons were normal, bilaterally. F waves: F wave latency for the left median nerve was normal. F wave latency for the right median nerve was prolonged. F wave latencies for the bilateral peroneal nerve were prolonged. F wave latencies for the bilateral tibial nerve were prolonged. F wave latencies for the bilateral ulnar nerve were normal. EMG: Needle EMG of the right APB, FDI, biceps, triceps, deltoid, gastrocnemius, anterior tibialis and vastus medialis was normal. Summary This is an abnormal study consistent with the followin. 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 2. 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 Clinical correlation is recommended. ?? us Avinash Gonzalez MD NEUROLOGY ORDERABLES Final R esult documented in this encounter Visit Diagnoses Diagnosis Polyneuropathy Unspecified hereditary and idiopathic peripheral neuropathy documented in this encounter Care Teams Family Support Specialist Relationship Specialty Start Date End Date Scott Randle DO [address] [place] [address] PCP - General Family Medicine 01/31/20 03/19/21 documented as of this encounter
--- OUTSIDE RECORDS SUMMARY | 2024-01-30 08:08 | XMS_ITS | Encounter Summary ---
Author Organization [facility] Address [address] [facility] [place] [address] Phone Care Team Providers Care Crimper Operator Name Role Phone Nolan Castro DO Primary Care Provider [phone]- [phone] Reason for Referral * Other (Routine) - Closed Specialty Diagnoses / Procedures Referred By Contac t Referred To Contact Neurology Diagnoses Polyneuropathy Procedures EMG 4 EXTREMITY W/WO RELATED PARASPINAL Avinash Gonzalez MD Phone: tel: fax: Referral ID Status Reason Start Date Expiration Date Visits Re quested Visits Authorized [id number] Closed 03/10/2020 1 1 STANT MANAGER OF OPERATIONS Reason for Visit * Reason Comments Referral Dr. Osei RLS, pain bilateral feet, arms * Consult, Test & Initiate Treatment (Routine) - Closed Specialty Diagnoses / Procedures Referred By Contac t Referred To Contact Neurology Diagnoses Pain in right arm Pain in left arm Restless legs syndrome Other intermediate frame tender (current) drug therapy Nolan Castro DO [address] [place] [address] Phone: tel: fax: Avinash Gonzalez MD Phone: tel: fax: Referral ID Status Reason Start Date Expiration Date Visits Re quested Visits Authorized [id number] Closed 1 1 Encounter Details Date Type Department Care Team (Late st Contact Info) Description 03/10/2020 9:45 AM ASSISTANT MANAGER OF OPERATIONS Office Visit [facility] - [facility] - [place] [address] [place] [phone] Avinash Gonzalez MD [address] [place] [address] Polyneuropathy (Primary Dx) Discharge Disposition: Discharged to [...] have Coronavirus / COVID-19? No / Unsure 03/10/2020 9:35 AM ASSISTANT MANAGER OF OPERATIONS documented as of this encounter Last Filed Vital Signs Vital Sign Reading Time Taken Comments Blood Pressure 130/80 03/10/2020 9:46 AM ASSISTANT MANAGER OF OPERATIONS Pulse 70 03/10/2020 9:46 AM ASSISTANT MANAGER OF OPERATIONS Temperature 36.4 ??C (97.5 ??F) 03/10/2020 9:46 AM ASSISTANT MANAGER OF OPERATIONS Respiratory Rate 17 03/10/2020 9:46 AM ASSISTANT MANAGER OF OPERATIONS Oxygen Saturation 98% 03/10/2020 9:46 AM ASSISTANT MANAGER OF OPERATIONS Inhaled Oxygen Concentration - - Weight 113.6 kg (250 lb 6.4 oz) 03/10/2020 9:46 AM ASSISTANT MANAGER OF OPERATIONS Height 182.9 cm (6') 03/10/2020 9:46 AM ASSISTANT MANAGER OF OPERATIONS Body Mass Index 33.96 03/10/2020 9:46 AM ASSISTANT MANAGER OF OPERATIONS documented in this encounter Progress Notes * Avinash Gonzalez MD - 03/10/2020 9:45 AM CST NEUROLOGY CONSULT Date of Service: 03/10/2020 Assessment and Plan Kris was seen today for referral. Diagnoses and all orders for this visit: Polyneuropathy - Will start patient on gabapentin - Will get a lab work up - Will get an emg/NCS - VITAMIN B12; Future - THYROID STIMULATING HORMONE (TSH); Future - HEMOGLOBIN A1C W/ ESTIMATED GLUCOSE; Future - CMP (COMPREHENSIVE METABOLIC PANEL); Future - COMPLETE BLOOD COUNT (CBC) WITH DIFF; Future - ERYTHROCYTE SEDIMENTATION RATE (ESR); Future - EMG 4 EXTREMITY W/WO RELATED PARASPINAL; Future Other orders - gabapentin (NEURONTIN) 300 MG Capsule; Take 1 Cap by mouth nightly. Reason for Consultation: polyneuropathy HPI: Kris is a 59 year old male [...] drink(s) per week Allergies Allergen Reactions ??? Hendricks Oil Hives ??? Tomato Hives ??? Iron [...] EVERY DAY, Disp: , Rfl: 3 ??? Cholecalciferol (D3-50) 86320 UNIT Capsule, Take by mouth., Disp: , Rfl: ??? CITALOPRAM 20 MG PO TABS, 10 mg., Disp: , Rfl: ??? folic acid (FOLVITE) 1 MG Tablet, TAKE 1 TABLET (1 MG TOTAL) BY MOUTH EVERY DAY, Disp: , Rfl: 11 ??? HYDROcodone-acetaminophen (NORCO) 5-325 MG Tablet, Take 1-2 Tabs by mouth every 6 hours as needed for Moderate or more severe pain. (Patient not taking: Reported on 03/10/2020), Disp: 30 Tab, Rfl: 0 ??? KLOR-CON 20 MEQ PO PACK, daily., Disp: , Rfl: ??? loperamide (IMODIUM A-D) 1 MG/7.5ML Suspension, Take by mouth., Disp: , Rfl: ??? methotrexate 2.5 MG Tablet, TAKE 6 TABLETS (15 MG TOTAL) BY MOUTH EVERY 7 DAYS, Disp: , Rfl: 6 ??? METOPROLOL TARTRATE 50 MG PO TABS, , Disp: , Rfl: ??? Multiple Vitamin (MULTIVITAMIN PO), Take by mouth., Disp: , Rfl: ??? NEXIUM 24HR 20 MG CAPSULE DELAYED RELEASE, TAKE 2 TABLETS BY MOUTH EVERY DAY, Disp: , Rfl: 3 ??? omeprazole (PriLOSEC) 20 MG CAPSULE DELAYED RELEASE, TAKE 2 CAPSULES BY MOUTH EVERY DAY, Disp: , Rfl: ??? ondansetron (ZOFRAN-ODT) 4 MG TABLET DISPERSIBLE, Take 1 Tab by mouth every 8 hours as needed for Nausea - 1st line. (Patient not taking: Reported on 03/10/2020), Disp: 10 Tab, Rfl: 0 ??? other OTHER, Fildenafil 20mg amy (Patient not taking: Reported on 03/10/2020), Disp: 5 mg, Rfl: 11 ??? phenazopyridine 200 MG PO TABS, Take 1 Tab by mouth 3 times daily for 10 days., Disp: 30 Tab, Rfl: 0 ??? predniSONE (DELTASONE) 10 MG Tablet, Take 4 tab PO daily x 2 days, 3 tab PO daily x 2 days, 2 tab PO daily x 2 day, 1 tab PO daily x 2 days. (Patient not taking: Reported on 03/10/2020), Disp: 20 Tab, Rfl: 0 ??? SILDENAFIL 20 MG PO TABS, 5 mg., Disp: , Rfl: ??? tamsulosin (FLOMAX) 0.4 MG Capsule, TAKE 1 CAPSULE BY ORAL ROUTE DAILY, Disp: , Rfl: 5 ??? ustekinumab (STELARA) 90 MG/ML Solution Prefilled Syringe, , Disp: , Rfl: ??? valACYclovir (VALTREX) 1 GM Tablet, Take 1 Tab by mouth 3 times daily. (Patient not taking: Reported on 03/10/2020), Disp: 21 Tab, Rfl: 0 ??? VITAMIN D PO, Take by mouth., Disp: , Rfl: Review of Systems: A 14 point Review of Systems is obtained, and is negative other than that mentioned in the History of Present Illness. Objective: VITALS: Blood pressure 130/80, pulse 70, temperature 97.5 ??F (36.4 ??C), temperature source Tympanic, resp. rate 17, height 6' (1.829 m), weight 250 lb 6.4 oz (113.6 kg), SpO2 98 %. Weight: Wt Readings from Last 1 Encounters: 03/10/20 250 lb 6.4 oz (113.6 kg) Body mass index is 33.96 kg/m??. EXAM: General appearance: alert, no distress, [...] Flexors 5/5 5/5 Wrist Extensors 5/5 5/5 Senior Electrical Designer 5/5 5/5 Hip Flexors 5/5 5/5 Quadriceps [...] 03/10/2020 GFRA >60 03/10/2020 Total time spent with patient greater than 45 minutes with more than 50 % of time spent in counseling the patient and family regarding diagnosis and treatment options, education and/or coordination of care. By: Avinash Gonzalez MD, 03/10/2020, 10:06 AM ASSISTANT MANAGER OF OPERATIONS Primary Care Physician: NOLAN CASTRO DO STANT MANAGER OF OPERATIONS documented in this encounter Plan of Treatment Not on file documented as of this encounter Results * EMG 4 EXTREMITY W/WO RELATED PARASPINAL (03/17/2020 11:30 AM ASSISTANT MANAGER OF OPERATIONS) Narrative Avinash Gonzalez MD - 03/17/2020 11:30 AM ASSISTANT MANAGER OF OPERATIONS Avinash Gonzalez MD ? 03/19/2020 ??9:37 AM [...] flexor retinaculum. Clinical correlation is recommended. ?? Avinash Gonzalez MD NEUROLOGY ORDERABLES Final R esult * ERYTHROCYTE SEDIMENTATION RATE (ESR) (03/10/2020 11:26 AM ASSISTANT MANAGER OF OPERATIONS) ESR (SED RATE, ERYTHROCYTE SEDIMENTATION RATE) 9 <20 mm/h 03/10/2020 1:43 PM ASSISTANT MANAGER OF OPERATIONS [facility] Comment: Patients presenting with increased level of fibrinogen, gamma globulins, or abnormally shaped RBCs could affect the results for the erythrocyte sedimentation rate (ESR). Results should be clinically correlated. Blood Venipuncture / Unknown 03/10/2020 11:26 AM ASSISTANT MANAGER OF OPERATIONS 03/10/2020 12:04 PM ASSISTANT MANAGER OF OPERATIONS Avinash Gonzalez MD HEMATOLOGY ORDERABLES Final Result [facility] [address] [place] [address] * (ABNORMAL) CMP (COMPREHENSIVE METABOLIC PANEL) (03/10/2020 11:26 AM ASSISTANT MANAGER OF OPERATIONS) SODIUM 136 136 - 144 mmol/L 03/10/2020 12:49 PM ASSISTANT MANAGER OF OPERATIONS [facility] POTASSIUM 3.2(L) 3.5 - 5.1 mmol/L 03/10/2020 12:49 PM ASSISTANT MANAGER OF OPERATIONS [facility] CHLORIDE 97(L) 100 - 110 mmol/L 03/10/2020 12:49 PM ASSISTANT MANAGER OF OPERATIONS [facility] CO2, VENOUS 27 22 - 32 mmol/L 03/10/2020 12:49 PM [facility] ANION GAP 15.2 8.0 - 20.0 mmol/L 03/10/2020 12:49 PM [facility] GLUCOSE 151(H) 70 - 99 mg/dL 03/10/2020 12:49 PM [facility] BUN 14 8 - 23 mg/dL 03/10/2020 12:49 PM [facility] CREATININE, BLOOD 0.79(L) 0.80 - 1.30 mg/dL 03/10/2020 12:49 PM [facility] BUN/CREATININE RATIO 18 12 - 20 ratio 03/10/2020 12:49 PM [facility] TOTAL PROTEIN 7.2 6.0 - 8.3 g/dL 03/10/2020 12:49 PM [facility] ALBUMIN 4.8 3.5 - 5.2 g/dL 03/10/2020 12:49 PM [facility] Comment: The colormetric methods used for the determination of Albumin may lead to falsely elevated test results in patients suffering from renal failure or insufficiency due to interference with other proteins. A/G RATIO 2.0 1.0 - 2.0 03/10/2020 12:49 PM [facility] CALCIUM 9.4 8.9 - 10.3 mg/dL 03/10/2020 12:49 PM [facility] T BILI 0.5 <=1.2 mg/dL 03/10/2020 12:49 PM [facility] SGOT (AST) 22 <=40 U/L 03/10/2020 12:49 PM [facility] SGPT (ALT) 30 <=41 U/L 03/10/2020 12:49 PM [facility] ALKALINE PHOSPHATASE 79 40 - 130 U/L 03/10/2020 12:49 PM [facility] GFR, EST. NONAFRICAN >60 >=60 03/10/2020 12:49 PM ASSISTANT MANAGER OF OPERATIONS [facility] GFR, EST. >60 >=60 021 12:49 PM ASSISTANT MANAGER OF OPERATIONS [facility] Comment: Creatinine Clearance is the preferred criteria for selecting drug dose adjustments in renally impaired patients. ??The GFR is provided as additional pertinent clinical information. GFR is reported in mL/min/1.73 sq m. IS THE PATIENT REQUIRED TO BE FASTING? No 03/10/2020 12:49 PM ASSISTANT MANAGER OF OPERATIONS [facility] Blood Venipuncture / Unknown 03/10/2020 11:26 AM ASSISTANT MANAGER OF OPERATIONS 03/10/2020 12:03 PM ASSISTANT MANAGER OF OPERATIONS Avinash Gonzalez MD CHEMISTRY ORDERABLES Final R esult Performing Organization Address [facility] de Phone Number [facility] [address] [place] [address] * HEMOGLOBIN A1C W/ ESTIMATED GLUCOSE (03/10/2020 11:26 AM ASSISTANT MANAGER OF OPERATIONS) HGB-A1C 5.8 4.0 - 6.0 % 03/10/2020 12:26 PM ASSISTANT MANAGER OF OPERATIONS [facility] Est Average Glucose 119.8 mg/dL 03/10/2020 12:26 PM ASSISTANT MANAGER OF OPERATIONS [facility] Blood Venipuncture / Unknown 03/10/2020 11:26 AM ASSISTANT MANAGER OF OPERATIONS 03/10/2020 12:03 PM ASSISTANT MANAGER OF OPERATIONS Narrative [facility] - 03/10/2020 12:26 PM ASSISTANT MANAGER OF OPERATIONS HEMOGLOBIN A1C: DIABETIC PATIENTS: WELL-CONTROLLED: ?? 6.2 - 7.0 INTERMEDIATE WELL-CONTROLLED: ??7.0 - 9.0 POORLY-CONTROLLED: ??>9.0 Avinash Gonzalez MD CHEMISTRY ORDERABLES Final R esult Performing Organization Address [facility] Co de Phone Number [facility] [address] [place] [address] * THYROID STIMULATING HORMONE (TSH) (03/10/2020 11:26 AM ASSISTANT MANAGER OF OPERATIONS) TSH 1.290 0.270 - 4.200 mIU/L 03/10/2020 12:49 PM ASSISTANT MANAGER OF OPERATIONS [facility] Blood Venipuncture / Unknown 03/10/2020 11:26 AM ASSISTANT MANAGER OF OPERATIONS 03/10/2020 12:03 PM ASSISTANT MANAGER OF OPERATIONS Avinash Gonzalez MD CHEMISTRY ORDERABLES Final R esult Performing Organization Address City/[facility]/ZIP Co de Phone Number [facility] [address] [place] [address] * VITAMIN B12 (03/10/2020 11:26 AM ASSISTANT MANAGER OF OPERATIONS) VITAMIN B12 361 243 - 894 pg/mL 03/10/2020 1:03 PM ASSISTANT MANAGER OF OPERATIONS [facility] Blood Venipuncture / Unknown 03/10/2020 11:26 AM ASSISTANT MANAGER OF OPERATIONS 03/10/2020 12:03 PM ASSISTANT MANAGER OF OPERATIONS Avinash Gonzalez MD CHEMISTRY ORDERABLES Final R esult Performing Organization Address City/[facility] Co de Phone Number [facility] [address] [place] [address] documented in this encounter Visit Diagnoses Diagnosis Polyneuropathy- Primary Unspecified hereditary and idiopathic peripheral neuropathy Polyneuropathy Unspecified hereditary and idiopathic peripheral neuropathy documented in this encounter Care Teams Crimper Operator Relationship Specialty Start Date End Date Nolan Castro DO [address] [place] [address] PCP - General Family Medicine 01/31/20 03/19/21 documented as of this encounter
--- OUTSIDE RECORDS SUMMARY | 2024-01-30 08:08 | XMS_ITS | Encounter Summary ---
Author Organization [employer] Care Team Providers Care Small Piece Cutter Name Role Phone Scott Randle DO Primary Care Provider +1- [phone] Encounter Details Date Type Department Care Team (Latest Contact Info) Description 03/10/2020 Travel Social History Tobacco Use Types Packs/Day [...] COVID-19? No / Unsure 03/10/2020 9:35 AM BLIND LACER documented as of this encounter Plan of Treatment Not on file documented as of this encounter Visit Diagnoses Not on filedocumented in this encounter Care Teams Small Piece Cutter Relationship Specialty Start Date End Date Scott Randle DO [address] [place] [address] PCP - General Family Medicine 01/31/20 03/19/21 documented as of this encounter
--- OUTSIDE RECORDS SUMMARY | 2024-01-30 08:08 | XMS_ITS | Encounter Summary ---
Author Organization [employer] Care Team Providers Care Tooth Cutter Name Role Phone Scott Randle DO Primary Care Provider +1- [phone] Encounter Details Date Type Department Care Team (Latest Contact Info) Description 03/17/2020 Travel Social History Tobacco Use Types Packs/Day [...] COVID-19? No / Unsure 03/17/2020 11:17 AM CVT TECH documented as of this encounter Plan of Treatment Not on file documented as of this encounter Visit Diagnoses Not on filedocumented in this encounter Care Teams Tooth Cutter Relationship Specialty Start Date End Date Scott Randle DO [address] [place] [address] PCP - General Family Medicine 01/31/20 03/19/21 documented as of this encounter
--- OUTSIDE RECORDS SUMMARY | 2024-01-30 08:08 | XMS_ITS | Encounter Summary ---
Author Organization [facility] Address [address] 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 No / Unsure 12/19/2019 8:32 AM MIXING MACHINE TENDER [employer] documented as of this encounter Last Filed Vital Signs Vital Sign Reading Time Taken Comments Blood Pressure 140/78 12/19/2019 9:46 AM MIXING MACHINE T[employer]ER [employer] Pulse 79 12/19/2019 9:46 AM MIXING MACHINE TENDER [employer] Temperature 36.9 ??C (98.4 ??F) 12/19/2019 9:46 AM CS T Respiratory Rate - - Oxygen Saturation 98% 12/19/2019 9:46 AM MIXING MACHINE TENDER [employer] Inhaled Oxygen Concentration - - Weight - - Height - - Body Mass Index - - documented in this encounter Patient Instructions * Patient Instructions* Anette Rivas APN, SAW CLEANER - 12/19/2019 8:45 AM MIXING MACHINE TENDER [employer] Images from the original note were not included. Shingles Shingles is a viral infection caused by the same virus that causes chicken pox. Anyone who has had chicken pox may get shingles later in life. The virus stays in the body, but remains asleep (dormant). Shingles often occurs in older persons or persons with lowered immunity. But it can affect anyoneat any age. Shingles starts as a tingling patch of skin on one side of the body. Small, painful blisters may then appear. The rash rarely spreads to other parts of the body. Exposure to shingles can't cause shingles. However, it can cause chicken pox in anyone who has not had chicken pox or has not been vaccinated. The contagious period ends when all blisters have crusted over, generally 1 to 2 weeks after the illness starts. After the blisters heal, the affected skin may be sensitive or painful for weeks or months, gradually resolving over time. But, sometimes this can last longer and be permanent (called postherpetic neuralgia.) Shingles vaccines are available. Vaccination can help prevent shingles or make it less painful. It is??generally??recommended for adults older than 50, even if you've had singles in the past. Talk with your healthcare provider about when to get vaccinated and which vaccine is best for you. Home care ?? Medicines may be prescribed to help relieve pain. Take these medicines as directed. Ask your healthcare provider or pharmacist before using [id number] medicines for helping treat pain and itching. ?? In certain cases, antiviral medicines may be prescribed to reduce pain, shorten the illness, andprevent neuralgia. Take these medicines as directed. ?? Compresses made from??a solution of cool water mixed with cornstarch??or??baking soda??may help relieve pain and itching.? Gently wash skin??daily??with soap and water to help prevent infection. Be certain to rinse off all of the soap, which can be irritating. ?? Trim fingernails and try not to scratch. Scratching the sores may leave scars. ?? Stay home from work or school until all blisters have formed a crust and you are no longer contagious. Follow-up care Follow up with your healthcare provider, or as directed. When to seek medical advice ?? Fever of 100.4??F (38??C) or higher, or as directed by your healthcare provider ?? Affected skin is on the face or neck and any of the following occur: ? Headache ? Eye pain ? Changes in vision ? Sores near the eye ? Weakness of facial muscles ?? Blisters occurring on new areas of the body ?? Pain, redness, or swelling of a joint ?? Signs of skin infection: colored drainage from the sores, warmth, increasing redness, fever, or increasing pain [employer] last reviewed this educational content on 05/08/2017 ?? [id number] [employer] [address] [place] [address]. All rights reserved. This information is not intended as a substitute for professional medical care. Always follow your healthcare professional's instructions. Start pred taper and valtrex as prescribed Care as instructed on AVS If medication was prescribed it was sent to the pharmacy. Take all medication as prescribed. Do not skip a dose and take until completed. Follow up with PCP if the symptoms do not improve Go to the ER if symptoms become severe NG MACHINE TENDER [employer] documented in this encounter Progress Notes * Carrie Trejo RMA - 12/19/2019 8:45 AM CST Kris Spence complains of Rash since last Tuesday. Rash This is a new problem. The current episode started in the past 7 days. The problem has been gradually worsening since onset. The affected locations include the chest and right shoulder. The rash is characterized by redness, dryness and itchiness. Associated with: blue emu muscle cream- generic. Past treatments include moisturizer (aspercream). The treatment provided no relief. Today's Review of Systems Skin: Positive for itching and rash. NG MACHINE TENDER [employer]ET documented in this encounter H&P Notes * Anette Rivas APN, SAW CLEANER - 12/19/2019 8:45 AM CST Subjective: Kris Spence is a 59 y.o. male in the prompt care today for rash to right upper chest/shoulder. Symptoms started one week ago Severity of symptoms is worsening Associated symptoms include rash, pain, redness Patient is not currently taking over the counter meds for the symptoms. Smoker: No Hx of shingles in past No pertinent Past, family, or social history was noted Review of Systems Skin: Positive for color change and rash. All other systems reviewed and are negative. Objective: Physical Exam Vitals signs and nursing note reviewed. Constitutional: Appearance: Normal appearance. HENT: Head: Normocephalic and atraumatic. Neck: Musculoskeletal: Normal range of motion and neck supple. Cardiovascular: Rate and Rhythm: Normal rate and regular rhythm. Pulmonary: Effort: Pulmonary effort is normal. Breath sounds: Normal breath sounds. Musculoskeletal: Normal range of motion. Skin: Neurological: Mental Status: He is alert and oriented to person, place, and time. Psychiatric: Mood and Affect: Mood normal. Behavior: Behavior normal. Thought Content: Thought content normal. Judgment: Judgment normal. Assessment and Plan 1. Herpes zoster without complication Likely shingles Start pred taper and valtrex as prescribed Care as instructed on AVS If medication was prescribed it was sent to the pharmacy. Take all medication as prescribed. Do not skip a dose and take until completed. Follow up with PCP if the symptoms do not improve Go to the ER if symptoms become severe - valACYclovir (VALTREX) 1 GM Tablet; Take 1 Tab by mouth 3 times daily. Dispense: 21 Tab; Refill: 0 - predniSONE (DELTASONE) 10 MG Tablet; Take 4 tab PO daily x 2 days, 3 tab PO daily x 2 days, 2 tabPO daily x 2 day, 1 tab PO daily x 2 days. 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
--- OUTSIDE RECORDS SUMMARY | 2024-01-30 08:08 | XMS_ITS | Encounter Summary ---
Author Organization [facility] Address [address] [facility] [address] Phone Care Team Providers Care [employer] Teacher Name Role Phone Les Kruger MD Primary Care Provider [phone] Scott Randle DO Primary Care Provider [phone] Mike Mitchell MD Primary Care Provider [phone] Maldonado Gracia MD Unavailable Encounter Details Date Type Department Care Team (Latest Contact Info) Description 08/08/2019 Transcribe Orders [facility] Ad[facility] [address] [place] [address] Les Kruger MD [address] [place] [id number] Hypertension, unspecified type (Primary Dx) Social History Tobacco Use Types Packs/Day Years [...] have Coronavirus / COVID-19? No / Unsure 08/09/2019 9:28 AM CDT documented as of this encounter Plan of Treatment Not on file documented as of this encounter Results * (ABNORMAL) LIPID PANEL (08/09/2019 9:38 AM CDT) CHOLESTEROL 206(H) <=200 mg/dL 08/09/2019 3:05 PM [facility]T [email or web address] TRIGLYCERIDES 617(H) <150 mg/dL 08/09/2019 3:05 PM CDT [email or web address] HDL CHOLESTEROL 40.0(L) >40 mg/dL 0 3:05 PM CDT [facility] LDL 08/09/2019 3:05 PM CDT [facility] Comment:Unable to calculate LDL when Triglycerides are greater than 400. Direct measurement of LDL is available upon request as a separate test. VLDL 08/09/2019 3:05 PM CDT [facility] Comment:Cannot be calculated due to Hypertriglyceridemia. CHOL/HDL RATIO 5.2(H) 0.0 - 4.4 08/09/2019 3:05 PM CDT [facility] NON-HDL CHOLESTEROL 166(H) <130 mg/dL 08/09/2019 3:05 PM CDT [facility] LIPID FASTING 08/09/2019 3:05 PM CDT [facility] Blood Venipuncture / Unknown 08/09/2019 9:38 AM CDT 08/09/2019 1:07 PM CDT us Les Kruger MD CHEMISTRY ORDERABLES Final R esult [facility] [address] [place] [address] * (ABNORMAL) CMP (COMPREHENSIVE METABOLIC PANEL) (08/09/2019 9:38 AM CDT) SODIUM 139 136 - 144 mmol/L 08/09/2019 3:05 PM CDT [facility] POTASSIUM 3.3(L) 3.5 - 5.1 mmol/L 08/09/2019 3:05 PM [facility] CHLORIDE 97(L) 100 - 110 mmol/L 08/09/2019 3:05 PM [facility] CO2, VENOUS 28 22 - 32 mmol/L 08/09/2019 3:05 PM [facility] ANION GAP 17.3 8.0 - 20.0 mmol/L 08/09/2019 3:05 PM [facility] GLUCOSE 126(H) 70 - 99 mg/dL 08/09/2019 3:05 PM [facility] BUN 17 8 - 23 mg/dL 08/09/2019 3:05 PM [facility] CREATININE, BLOOD 0.91 0.80 - 1.30 mg/dL 08/09/2019 3:05 PM [facility] BUN/CREATININE RATIO 19 12 - 20 ratio 08/09/2019 3:05 PM [facility] TOTAL PROTEIN 7.0 6.0 - 8.3 g/dL 08/09/2019 3:05 PM [facility] ALBUMIN 4.9 3.5 - 5.2 g/dL 08/09/2019 3:05 PM [facility] Comment: The colormetric methods used for the determination of Albumin may lead to falsely elevated test results in patients suffering from renal failure or insufficiency due to interference with other proteins. A/G RATIO 2.3(H) 1.0 - 2.0 08/09/2019 3:05 PM [facility] CALCIUM 9.8 8.9 - 10.3 mg/dL 08/09/2019 3:05 PM [facility] T BILI 0.4 <=1.2 mg/dL 08/09/2019 3:05 PM [facility] SGOT (AST) 24 <=40 U/L 08/09/2019 3:05 PM [facility] SGPT (ALT) 30 <=41 U/L 08/09/2019 3:[address] [facility] ALKALINE PHOSPHATASE 81 40 - 130 U/L 08/09/2019 3:[address] [facility] GFR, EST. NONAFRICAN >60 >=60 08/09/2019 3:[address] [facility] GFR, EST. >60 >=60 020 3:[address] [facility] Comment: Creatinine Clearance is the preferred criteria for selecting drug dose adjustments in renally impaired patients. ??The GFR is provided as additional pertinent clinical information. GFR is reported in mL/min/1.73 sq m. Blood Venipuncture / Unknown 08/09/2019 9:38 AM CDT 08/09/2019 1:07 PM CDT us Les Kruger MD CHEMISTRY ORDERABLES Final R esult Performing Organization Address City/State/[facility] Co de Phone Number [facility] [address] [place] [address] documented in this encounter Visit Diagnoses Diagnosis Hypertension, unspecified type- Primary documented in this encounter Care Teams [employer] Teacher Relationship Specialty Start Date End Date Les Kruger MD [address] [place] [address] PCP - General Family Medicine 08/06/13 01/30/20 Scott Randle DO [address] [place] [address] PCP - General Family Medicine 01/31/20 03/19/21 Mike Mitchell MD [address] [place] [address] PCP - General Family Medicine 03/20/21 Maldonado Gracia MD [address] [address] Consulting Physician Urology 10/12/23 documented as of this encounter
--- OUTSIDE RECORDS SUMMARY | 2024-01-30 08:08 | XMS_ITS | Encounter Summary ---
Author Organization [facility] Care Team Providers Care Business Performance Analyst Name Role Phone Les Kruegr MD Primary Care Provider [phone] Encounter Details Date Type Department Care Team (Latest Contact Info) Description 08/09/2019 Travel Social History Tobacco Use Types Packs/Day [...] on filedocumented in this encounter Care Teams Business Performance Analyst Relationship Specialty Start Date End Date Les Kruger MD [address] [place] [address] PCP - General Family Medicine 08/06/13 01/30/20 documented as of this encounter
--- OUTSIDE RECORDS SUMMARY | 2024-01-30 08:12 | XMS_ITS | Clinical Summary ---
Author Organization [facility] Address [address] [place] [address] Care Team Providers Care Fire Manager Name Role Phone Mike Mitchell MD Primary Care Provider [phone] [phone] Allergies Active Allergy Reactions Criticality Noted Date Comments Fruit Extracts Hives Medium 06/09/2015 Tomatoes and oranges Azathioprine Other (See comments) Low 04/05/2017 Pancreatitis (Imuran) Mchenry Juice Hives Medium 09/16/2009 Mchenry Oil Hives Medium 09/16/2009 Sulfa (Sulfonamide Antibiotics) Hives,Rash Medium 10/14/2016 Tomato Hives Medium 09/16/2009 Medications allopurinoL (ZYLOPRIM) 100 mg tabletIndications:pr evention of acute gout attack Take 1 tablet (100 mg total) by mouth 2 (two) times a day 11/29/19 20 Active chlorthalidone 25 mg tabletIndications:hy pertension Take 1 tablet (25 mg total) by mouth every morning 11/20/[address] (NexIUM) 20 mg capsuleIndications:T reatment of Non-Bleeding Gastric Disorder Take 2 capsules (40 mg total) by mouth every morning bid 02/05/20 20 Active multivitamin-mineral s-lutein tabletIndications:cage pplement Take 1 tablet by mouth every morning Active Klor-Con M20 20 mEq CR tabletIndications:cage pplement Take 1 tablet (20 mEq total) by mouth 3 (three) times a day 01/12/20 20 Active testosterone cypionate (DEPO-TESTOTERONE) 200 mg/mL injectionIndications :Androgen Deficiency Inject 0.5 mL (100 mg total) into the muscle as instructed every 14 (fourteen) days 10/08/19 21 Active fenofibrate nanocrystallized (TRICOR) 48 mg tabletIndications:hy perlipidemia Take 1 tablet (48 mg total) by mouth nightly Active iron fum/vit C/ascorbate sod (IRON PLUS VITAMIN C ORAL)Indications:sup plement Take 1 Dose by mouth daily before breakfast Active amLODIPine (NORVASC) 5 mg tabletIndications:hy pertension Take 1 tablet (5 mg total) by mouth every morning 07/21/19 22 Active cholecalciferol (VITAMIN D-3) 2000 unit tabletIndications:Lo w serum vitamin D Take 1 tablet (2,000 Units total) by mouth nightly 90 tablet 3 01/05/20 22 Active Additional Information Patient taking differently:2,000 Units oral Nightly,Indications: Prevention of Vitamin D Deficiency, Informant: Self, Reported on 05/31/2022 loperamide (IMODIUM) 2 mg capsule Take 2 capsules (4 mg total) by mouth 3 (three) times a day as needed for diarrhea 180 capsule 4 01/19/20 22 Active Additional Information Patient taking differently:4 mg oral 3 times daily PRN, diarrhea,Indications: diarrhea, Informant: Self, Reported on 05/31/2022 traZODone (DESYREL) 50 mg tabletIndications:in somnia associated with depression Take 1 tablet (50 mg total) by mouth nightly as needed for sleep PRN 01/12/20 22 Active tadalafiL (ADCIRCA) 10 mg tablet Take 1 tablet (10 mg total) by mouth daily as needed for erectile dysfunction 01/13/20 22 Active pregabalin (LYRICA) 50 mg capsuleIndications:n erve pain Take 1 capsule (50 mg total) by mouth 2 (two) times a day 01/12/20 22 Active ibuprofen (ADVIL,MOTRIN) 200 mg tab/capIndications:P ain Take 2 tablet/capsule (400 mg total) by mouth every 6 (six) hours as needed for pain Active sulfaSALAzine (AZULFIDINE) 500 mg tabletIndications:Cr ohn's 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 (CMS/HCC) (HCC),High risk medications (not anticoagulants) long-term use Take 2 tablets (1,000 mg total) by mouth 4 (four) times a day 240 tablet 2 10/05/19 23 Active Additional Information Patient taking differently:1,000 mg oral 4 times daily,Indications: Crohn's Disease, Informant: Self, Reported on 12/22/2022 magnesium gluconate 200 mg tabletIndications:hy pomagnesemia Take 1 tablet (200 mg total) by mouth daily before breakfast Active alpha lipoic acid 600 mg capsuleIndications:h ealth Take 1 capsule (600 mg total) by mouth daily before breakfast Active coenzyme Q10 200 mg capsuleIndications:h ealth Take 1 capsule (200 mg total) by mouth 2 (two) times a day Active cyanocobalamin (Vitamin B-12) 1,000 mcg tabletIndications:Pr evention of Vitamin B12 Deficiency Take 1 tablet (1,000 mcg total) by mouth daily before breakfast Active docusate sodium (COLACE) 100 mg capsuleIndications:c onstipation Take 1 capsule (100 mg total) by mouth 2 (two) times a day as needed for constipation (while taking narcotics) 30 capsule 1 01/14/20 23 Active oxyCODONE (ROXICODONE) 5 mg immediate release tabletIndications:Pa in 1-2 tablets q4-6 hours PRN pain 40 tablet 01/14/20 23 Active Active Problems Problem Noted Date Diagnosed Date Tear of right rotator cuff 11/16/2022 Nontraumatic complete tear of left rotator cuff 01/21/2022 Overview (01/21/2022): Added automatically from request for surgery [id number] Nontraumatic incomplete tear of right rotator cu ff 01/21/2022 Overview (01/21/2022): Added automatically from request for surgery [id number] Gastrointestinal hemorrhage 11/16/2020 Crohn's disease of ileum with complication 03/27 Recurrent incisional hernia 03/07/2020 Immunizations Name Administration Dates Next Due Hep B Vaccine 09/08/2016,2016,02/10/2016 ZOSTER Recombinant 03/27/2019,01/23/2019 Surgical History Surgery Date Site/Laterality Comments CYSTOSCOPY W/ LASER LITHOTRIPSY Right 2013, 2017 VENTRAL HERNIA REPAIR 06/07/2009 - 07/07/200907/2009 ABDOMINAL WALL DEFECT REPAIR 02/08/2012 - 02/06/2013 reconstruction HEMANGIOMA EXCISION 02/07/2015 - 02/07/2016 liver RESTORATIVE PROCTOCOLECTOMY 02/07/2002 - 02/06/2003 J-pouch and reversed POUCHOSCOPY 05/08/2022 - 06/06/2022 INCISIONAL HERNIA REPAIR 04/13/2021 AWR ROTATOR CUFF REPAIR 02/07/2022 - 03/09/2022 Left Medical History Medical History Date Comments Liver hemangioma GERD (gastroesophageal reflux disease) well controlled with meds HTN (hypertension) well controll ed Nephrolithiasis 2017 Obesity Pam positive HLD (hyperlipidemia) Low testosterone Crohn's disease (CMS/HCC) (HCC) Motion sickness Family History Medical History Relation Name Comments Cancer Father Hypertension Father Stroke Father Abdominal Aortic Aneurysm Mother Anesthesia problems Neg Hx Relation Name Status Comments Father Other of CVA age 84 Mother Other of abd ane urysm age 79 Social History Tobacco Use Types Packs/Day Years Used Date Smoking Tobacco: Never Smokeless Tobacco: Never Alcohol Use Standard Drinks/Week Comments Yes 0 (1 standard drink = 0.6 oz pur e alcohol) socially AUDIT-C Answer Date Recorded Q1: How often do you have a drink containing alc ohol? 2-4 times a month 12/22/2022 Q2: How many drinks containi ng alcohol do you have on a typical day when you are drinking? 1 or 2 12/22/2022 Q3: How often do you have si x or more drinks on one occasion? Never 12/22/2022 Personal Safety Answer Date Recorded Have you ever been in or are you currently in a harmful physical or emotional relationship or is someone making you feel afraid or unsafe? Denies 01/13/2023 Sex and Gender Information Value Date Recorded Sex Assigned at Not on file Legal Sex Male 8:42 AM PROCESS CONTROL PROGRAMMER Gender Identity Not on file Sexual Orientation Straight 04/01/2020 8: 42 PM PROCESS CONTROL PROGRAMMER Obstetrics History Last Filed Vital Signs Vital Sign Reading Time Taken Comments Blood Pressure 130/83 01/13/2023 1:05 PM PROCESS CONTROL PROGRAMMER Pulse 68 01/13/2023 1:10 PM PROCESS CONTROL PROGRAMMER Temperature 36.4 ??C (97.5 ??F) 01/13/2023 12:[address] Respiratory Rate 17 01/13/2023 1:10 PM PROCESS CONTROL PROGRAMMER Oxygen Saturation 95% 01/13/2023 1:10 PM PROCESS CONTROL PROGRAMMER Inhaled Oxygen Concentration - - Weight 116 kg (255 lb 12.8 oz) 01/13/2023 8:52 A M PROCESS CONTROL PROGRAMMER Height 182.9 cm (6') 01/13/2023 8:52 AM PROCESS CONTROL PROGRAMMER Body Mass Index 34.69 01/13/2023 8:52 AM PROCESS CONTROL PROGRAMMER Plan of Treatment Health Maintenance Due Date Last Done Comments Colon Cancer Screening-Colonoscopy 1959 Depression Screening 1959 Hepatitis C Screening 1959 Prostate Cancer Screening-PSA 1959 DTaP/Tdap/Td Vaccine (1 - Tdap) 1970 Regular Well Visit/Exam 18-64 1977 Covid-19 Vaccine (3 2023-2 5 season) 2023 10/06/2020, 09/09/2020 Influenza Vaccine (#1) 2023 Zoster Vaccine Completed 03/27/2019, 01/23/2019 Pneumococcal vaccine <65 Aged Out No longer eligible based on patient's age to complete this topic Medical Devices Implanted Type Area Gear Milling Machine Set Up Operator Device Identifier Shelf Expiration Date Model / Serial / Lot Ethicon Endo Surgery [id number] Square Mesh Surgical Prolene Polypropylene - Sn/A - [id number] Implanted:Qty: 1 on 04/13/2021 by Ky Sheth MD at [facility] Mesh N/A: Abdomen Ethicon Endo Surgery [id number] 12/07/2024 [id number] / N/A / [id number] Ar[employer]rex Inc Set Implant Arthrex Fibertak Biceps Sterile Latex Free Ar-3670 - [id number] Implanted:Qty: 1 on 02/09/2022 by Shaan Samaniego MD at [facility] Orthopedic [place] Left: Shoulder [employer] Inc 10/07/2026 AR-3670 / / [id number] [employer] Inc Corkscrew Suturetape 5.5mm 14.7mm Bioabsorbable Full Thread 1.3mm Ar-1927bct - [id number] Implanted:Qty: 1 on 02/09/2022 by Shaan Samaniego MD at [facility] [place] Left: Humerus Ar[employer]rex Inc 12/08/[address] / / [id number] Ar[employer] Swivelock C 4.75mm 19.1mm Closed Eyelet Vent [place] Suture Ar-2324bcc - [id number] Implanted:Qty: 1 on 02/09/2022 by Shaan Samaniego MD at [facility] [employer] 12/07/2025 AR-2324B CC / / [id number] [employer] Swivelock C 4.75mm 19.1mm Closed Eyelet Vent [place] Suture Ar-2324bcc - [id number] Implanted:Qty: 1 on 02/09/2022 by Shaan Samaniego MD at [facility] Shoulder [employer] Inc 12/07/2025 AR-2324B CC / / [id number] [employer] System Biceps [place] Slotted Drill Guide 1.9mm Drill Fibertak Ar-3670 - [id number] Implanted:Qty: 1 on 01/13/2023 by Shaan Samaniego MD at [facility] [place] Right: Shoulder [employer] 10/08/2027 AR-3670 / / [id number] Insurance [facility] [id number] [place] [address] [facility] [id number] Advance Directives For more information, please contact: [phone] * Full Code (Latest Code Status on File) Date Activated Date Inactivated Comments 05/31/2022 7:50 AM 05/31/2022 1:55 PM * Full Code Date Activated Date Inactivated Comments 05/31/2022 7:50 AM 05/31/2022 7:50 AM * Full Code Date Activated Date Inactivated Comments 04/13/2021 5:15 PM 04/17/2021 4:49 PM * Full Code Date Activated Date Inactivated Comments 11/17/2020 2:24 AM 11/17/2020 5:10 PM * Full Code Date Activated Date Inactivated Comments 11/14/2020 7:33 AM 11/14/2020 2:37 PM Care Teams Fire Manager Relationship Specialty Start Date End Date Mike Mitchell MD PCP - General Family Practice 01/16/21
--- OUTSIDE RECORDS SUMMARY | 2024-01-30 08:13 | XMS_ITS | Encounter Summary ---
Author Organization [facility] Address [address] [place] [address] Phone Care Team Providers Care Reed Polisher Name Role Phone Mike Mitchell MD Primary Care Provider [phone] [phone] Encounter Details Date Type Department Care Team (Late st Contact Info) Description 08/05/2022 Telephone [facility] Surgery [address] [facility] [address] [place] [phone] Prabhjot Aranda, DPM [address] [facility] [address] [place] [address] Social History Tobacco Use Types Packs/Day Years Used Date Smoking Tobacco: Never Smokeless Tobacco: Never Alcohol Use Standard Drinks/Week Comments Yes 0 (1 standard drink = 0.6 oz pur e alcohol) socially AUDIT-C Answer Date Recorded Q1: How often do you have a drink containing alc ohol? 2-4 times a month 05/31/2022 Q2: How many drinks containi ng alcohol do you have on a typical day when you are drinking? 1 or 2 05/31/2022 Q3: How often do you have si x or more drinks on one occasion? 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
--- OUTSIDE RECORDS SUMMARY | 2024-01-30 08:13 | XMS_ITS | Encounter Summary ---
Author Organization [facility] Address [address] [place] [address] Phone Care Team Providers Care Switching Operator Name Role Phone Mike Mitchell MD Primary Care Provider [phone] [phone] Reason for Visit * Reason Comments Follow-up Encounter Details Date Type Department Care Team (Late st Contact Info) Description 05/03/2022 3:00 PM CDT Office Visit [facility] Orthopaedic Surgery [address] [facility] 2nd [address] [place] [address] Shaan Samaniego MD [address] [facility] [place] [address] Complete tear of left rotator cuff, unspecified whether traumatic (Primary Dx); Left shoulder pain, unspecified chronicity; S/P shoulder surgery; Nontraumatic incomplete tear of right rotator cuff Social History Tobacco Use Types Packs/Day Years Used Date Smoking Tobacco: Never Smokeless Tobacco: Never Alcohol Use Standard Drinks/Week Comments Yes 0 (1 standard drink = 0.6 oz pur e alcohol) socially AUDIT-C Answer Date Recorded Q1: How often do you have a drink containing alc ohol? 2-3 times a week 01/25/2022 Q2: How many drinks containi ng alcohol do you have on a typical day when you are drinking? 3 or 4 01/25/2022 Q3: How often do you have si x or more drinks on one occasion? 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 Pain has been well-controlled. He is very happy with his progress. PHYSICAL EXAMINATION No acute distress, alert and oriented X 3. Incision healing is noted with no sign of infection. Active assisted forward elevation is to 140??. External rotation at the side is to 40??. Distal motor and sensory function is normal. REVIEW OF X-RAYS/STUDIES No new imaging was performed today IMPRESSION/DIAGNOSIS Doing well now 3 months after Rotator cuff repair TREATMENT/PLAN We will continue with routine postoperative rehabilitation. We will begin rotator cuff strengthening exercises. May return to daily activities as tolerated. We reviewed precautions and they voiced understanding. All questions were answered today. FOLLOW UP 6 weeks Shaan Samaniego MD Assisstant Professor [facility] Dr Samaniego dictating via MModal. Security Systems Engineer variances may occur. documented in this encounter Plan of Treatment Not on file documented as of this encounter Visit Diagnoses Diagnosis Complete tear of left rotator cuff, unspecified whether traumatic- Primary Left shoulder pain, unspecified chronicity S/P shoulder surgery Other postprocedural status Nontraumatic incomplete tear of right rotator cuff documented in this encounter Care Teams Switching Operator Relationship Specialty Start Date End Date Mike Mitchell MD PCP - General Family Practice 01/16/21 documented as of this encounter
--- OUTSIDE RECORDS SUMMARY | 2024-01-30 08:13 | XMS_ITS | Encounter Summary ---
Author Organization [facility] Address [address] [place] [address] Phone Care Team Providers Care Bonding Supervisor Name Role Phone Mike Mitchell MD Primary Care Provider [phone] [phone] Encounter Details Date Type Department Care Team (Late st Contact Info) Description 11/16/2022 Orders Only [facility] Orthopaedic Surgery [address] [facility] 2[address] [place] [phone] Shaan Samaniego MD [address] [facility] [address] [place] [address] Tear of right rotator cuff, unspecified tear extent, unspecified whether traumatic (Primary Dx) Social History Tobacco Use Types [...] on file 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 Gender Identity Not on file Sexual Orientation Straight 04/01/2020 8: 42 PM PROFESSOR OF POLITICAL SCIENCE documented as of this encounter Plan of Treatment Not on file documented as of this encounter Visit Diagnoses Diagnosis Tear of right rotator cuff, unspecified tear extent, unspecified whether traumatic- Primary documented in this encounter Orders Case Request Count Last Ordered Date First Orde red Date CASE REQUEST OPERATING ROOM 1 11/16/2022 documented in this encounter Care Teams Bonding Supervisor Relationship Specialty Start Date End Date Mike Mitchell MD PCP - General Family Practice 01/16/21 documented as of this encounter
--- OUTSIDE RECORDS SUMMARY | 2024-01-30 08:13 | XMS_ITS | Encounter Summary ---
Author Organization [facility] Address [address] [place] [address] Phone Care Team Providers Care Dog Sitter Name Role Phone Mike Mitchell MD Primary Care Provider +1 [phone] Reason for Visit * Episode Based Medications (Routine) - Closed Specialty Diagnoses / Procedures Referred By Contac t Referred To Contact Diagnoses Crohn's disease of ileum with complication (HCC) Procedures WI INFLIXIMAB NOT BIOSIMIL 10MG Julia Moreno MD [address] [place] [address] Phone: tel: fax: [facility] Infusion Therapy [address] [place] [address] [address]th [place] [address] [place] [address] Phone: tel: fax: Referral ID Status Reason Start Date Expiration Date Visits Re quested Visits Authorized [id number] Closed 08/31/2022 09/01/2023 26 26 Encounter Details Date Type Department Care Team (Late st Contact Info) Description 09/01/2022 9:[address] 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 Gender Identity Not on file Sexual Orientation Straight 04/01/2020 8: 42 PM END FINDER TWISTING DEPARTMENT documented as of this encounter Last Filed Vital Signs Vital Sign Reading Time Taken Comments Blood Pressure 160/91 09/01/2022 9:33 AM CDT Pulse 83 09/01/2022 9:33 AM CDT Temperature 36.8 ??C (98.2 ??F) 09/01/2022 9:33 AM CD T Respiratory Rate 14 09/01/2022 9:33 AM CDT Oxygen Saturation 98% 09/01/2022 9:33 AM CDT Inhaled Oxygen Concentration - - Weight 113.9 kg (251 lb 3.2 oz) 09/01/2022 9:33 AM CDT Height - - Body Mass Index 34.07 06/16/2022 2:55 PM CDT documented in this encounter Progress Notes * Andreia Hanna RN - 09/01/2022 9:30 AM CDT Pt given remicade per protocol. Labs drawn per md order. No s/s of adverse reaction. VSS. Follow upappt made documented in this encounter Plan of Treatment Not on file documented as of this encounter Procedures Procedure Name Priority Date/Time Associated Diagnosis Comments CBC WITH AUTO DIFFERENTIAL Routine 09/01/2022 9:33 AM CDT Crohn's disease of ileum with complication (HCC) HEPATIC FUNCTION PANEL Routine 09/01/2022 9:33 AM CDT Crohn's disease of ileum with complication (HCC) documented in this encounter Results * CBC with auto differential (09/01/2022 9:33 AM CDT) White Blood Count 5.9 3.6 - 11.2 K/uL [facility] RBC 4.91 4.06 - 5.63 M/uL [facility] Hemoglobin 15.6 13.0 - 17.5 g/dL [facility] Hematocrit 45.6 40.7 - 50.3 % [facility] MCV 92.8 80.0 - 97.6 fL [facility] MCH 31.8 26.7 - 33.7 pg [facility] MCHC 34.3 32.7 - 35.5 g/dL [facility] RBC Dist Width 13.0 12.3 - 17.0 % [facility] Platelet Count 210 140 - 440 K/uL [facility] MPV 8.7 6.8 - 10.4 fL [facility] Neutrophils % 65.4 38.7 - 74.5 % [facility] Lymphocyte % 26.4 20.0 - 54.3 % [facility] Monocytes % 7.1 4.3 - 13.5 % [facility] Eosinophils % 0.7 0.0 - 6.0 % [facility] Basophil % 0.4 0.0 - 3.0 % [facility] Absolute Neutrophil 3.9 1.8 - 6.6 K/uL [facility] Absolute Lymphocyte 1.6 0.8 - 3.3 K/uL [facility] Absolute Monocyte 0.4 0.2 - 1.2 K/uL [facility] Absolute Eosinophil 0.0 0.0 - 0.5 K/uL [facility] Absolute Basophil 0.0 0.0 - 0.2 K/uL [facility] Nucleated RBC % 0.0 0.0 - 0.4 /100 WBC [facility] Blood 09/01/2022 9:33 AM CDT 09/01/2022 10:26 AM CDT us Julia Moreno MD LAB BLOOD ORDERABLE S Final Result [facility] * Hepatic function panel (09/01/2022 9:33 AM CDT) Direct Bilirubin 0.11 0.00 - 0.30 mg/dL [facility] AST (SGOT) 29 11 - 47 IU/L [facility] ALT (SGPT) 34 6 - 53 IU/L [facility] Alk Phos, Total 50 35 - 129 IU/L [facility] Albumin 4.5 3.5 - 5.2 g/dL [facility] Total Bilirubin 0.40 0.20 - 1.40 mg/dL [facility] Total Protein 7.2 6.1 - 8.4 g/dL [facility] Blood 09/01/2022 9:33 AM CDT 09/01/2022 10:26 AM CDT Julia Moreno MD LAB BLOOD ORDERABLE S Final Result Performing Organization Address [facility]/State/ZIP Co de Phone Number [facility] documented in this encounter Visit Diagnoses Diagnosis Crohn's disease of ileum with complication (HCC)- Primary documented in this encounter Administered Medications Inactive Administered Medications - up to 3 most recent administrations Medication Order MAR Action Action Date Dose Rate Site inFLIXimab (REMICADE) 1,200 mg in sodium chloride 0.9% 500 mL IVPB 1,200 mg, intravenous, Administer over 2 Hours, Once, On Tue09/01/22 at 1015, For 1 dose, Infuse with filter tubing MAINTENANCE DOSE: Administer every 6 weeks. (Frequency change as of 06/30/21 r/t low IFX drug level from 06/23/21). For 200 ml lnititate therapy at 10mI/hour x 15 minutes then Increase to 20ml/hour x 15 minutes then Increase to 40ml/hour x 15 minutes then Increase to 80ml/hour x 15 minutes then Increase to 150ml/hour x 30 minutes then Increase to 250ml/hour x 30 minutes until infusion is complete FOR REACTIONS-STOP INFUSION. For 500 ml: Initiate therapy at 20 ml/hour x 15 minutes then Increase to 40 ml/hour x 15 minutes then Increase to 80 ml/hour x 15 minutes the Increase to 160 ml/hours x 15 minutes then Increase to 300 ml/hour x 30 minutes then Increase to 500 ml/hour until infusion is completed. Use 1.2 micron filter or less, low sorbing, low protein binding.Indications:Crohn's disease of ileum with complication (HCC) New Bag 09/01/2022 9:56 AM CDT 1,200 mg documented in this encounter Orders Medications Ordered That Po ht Not Have Been Administered Count Last Ordered Date First Ordered Date acetaminophen (TYLENOL) tablet 500 mg 1 diphenhydrAMINE (BENADRYL) tab/cap 25 mg 1 09/01/2022 documented in this encounter Care Teams Dog Sitter Relationship Specialty Start Date End Date Mike Mitchell MD PCP - General Family Practice 01/16/21 documented as of this encounter
--- OUTSIDE RECORDS SUMMARY | 2024-01-30 08:13 | XMS_ITS | Encounter Summary ---
Author Organization [facility] Address [address] [place] [address] Phone Care Team Providers Care Lyft Driver Name Role Phone Mike Mitchell MD Primary Care Provider [phone] Reason for Referral * Consultation (Routine) - Pending Review Specialty Diagnoses / Procedures Referred By Roberto t Referred To Contact Physical Therapy Diagnoses Right shoulder pain, unspecified chronicity Shaan Samaniego MD [address] [facility] [address] [place] [address] Phone: tel: fax: External Order Referral ID Status Reason Start Date Expiration Date Visits Requested Visits Authorized [id number] Pending Review Evaluate and Treat 3 02/25/2024 24 24 Question Answer PTRFR PT Evaluate and Treat Therapy options discussed with patient? Yes Location provided for therapy services is: Patient requested/Patient preferred Please select the performing region: External Order [171] # of visits: 24 Comments [facility] PHYSICAL THERAPY PRESCRIPTION Gibson Samaniego MD Shoulder and Elbow Service Date: 01/26/23 Patient Name: Kris Spence : 1960 Diagnosis: s/p surgery Surgery Date: 01/13/2023 Procedure: ARTHROSCOPY SHOULDER SUBACROMIAL DECOMPRESSION (Right) Right open TENODESIS - BICEPS (Right) - Right, Right possible ARTHROSCOPY SHOULDER ROTATOR CUFF REPAIR - Right, Right possible open TENODESIS - BICEPS - Right, and Right possible Nuris InSpace balloon placement - Right Therapy Instructions: Right shoulder ROM, scapular postural training, no strengthening Frequency & Duration: 1-2 days a week x 6 weeks. Therapist's discretion: eval and treat Shaan Samaniego MD ATTENTION THERAPY PROVIDER- Please be sure to include the Patient's Name & Date of on All Correspondence with our office- For all PT reports that require a signature-please fax to [phone] For all other PT progress notes-please fax to [phone] SCHEDULING PHYSICAL THERAPY APPOINTMENTS: THIS IS YOUR THERAPY ORDER. BE SURE AND TAKE THIS WITH YOU TO YOUR THERAPY APPOINTMENT AND GIVE TO YOUR THERAPIST. WITHOUT THIS PAPER THE THERAPIST WILL NOT BE ABLE TO START YOUR THERAPY PROGRAM. Your Physical Therapy Provider may complete the pre-certification process on your behalf. If you need assistance from the Orthopedic Pre-Certifiction office, please call [phone] and a child care team lead will assist you. Workman's compensation patients: you must contact your case preparer and liner regarding where you are to go for your physical therapy. RONMENTAL ATTORNEY Reason for Visit * Reason Comments Follow-up Encounter Details Date Type Department Care Team (Late st Contact Info) Description 01/26/2023 12:45 PM ENVIRONMENTAL ATTORNEY Office Visit [facility] [address] [facility] Medical Office Building [address] [phone] Shaan Samaniego MD [address] [facility] [address] [place] [address] Right shoulder pain, unspecified chronicity (Primary Dx) Social History Tobacco Use Types [...] on file Legal Sex Male 8:42 AM ENVIRONMENTAL ATTORNEY Gender Identity Not on file Sexual Orientation Straight 04/01/2020 8: 42 PM ENVIRONMENTAL ATTORNEY documented as of this encounter Progress Notes * Shaan Samaniego MD - 01/26/2023 12:45 PM CST POST OP VISIT INTERIM HISTORY Date of Surgery: 01/13/2023 Procedure: Right subacromial decompression with acromioplasty, glenohumeral debridement, open biceps tenodesis Kris Spence returns for routine postoperative follow-up after surgery. Pain has been well-controlled. PHYSICAL EXAMINATION No acute distress, alert and oriented X 3. Incision healing is noted with no sign of infection. Canforward elevate to 140??, externally rotate to 40??, and internally rotate the mid lumbar spine.. Distal motor and sensory function is normal. REVIEW OF X-RAYS/STUDIES No new studies IMPRESSION/DIAGNOSIS Well in early postoperative management TREATMENT/PLAN We will continue with routine postoperative rehabilitation. Going to initiate physical therapy. We reviewed precautions and they voiced understanding. All questions were answered today. FOLLOW UP Four weeks without x-rays Shaan Samaniego MD Television Technician of Orthopedic Surgery Shoulder and Elbow Service [facility] Dr. Gibson Samaniego dictating using Fluency Direct. Recoater variances may occur. RONMENTAL ATTORNEY documented in this encounter Plan of Treatment Scheduled Referrals Name Type Priority Associated Diagnoses Orde r Schedule Ambulatory referral order to Physical Therapy - Outpatient Referral Routine Right shoulder pain, unspecified chronicity Expected: 02/09/2023 (Approximate), Expires: 01/27/2024 documented as of this encounter Visit Diagnoses Diagnosis Right shoulder pain, unspecified chronicity- Primary documented in this encounter Care Teams Lyft Driver Relationship Specialty Start Date End Date Mike Mitchell MD PCP - General Family Practice 01/16/21 documented as of this encounter
--- OUTSIDE RECORDS SUMMARY | 2024-01-30 08:13 | XMS_ITS | Encounter Summary ---
Author Organization [facility] Healthcare Address [address] [place] [address] Care Team Providers Care Food Production Associate Name Role Phone Mike Mitchell MD Primary Care Provider [phone] Reason for Visit * Auth/Cert (Routine) Specialty Diagnoses / Procedures Referred By Contac t Referred To Contact Diagnoses Tear of right rotator cuff, unspecified tear extent, unspecified whether traumatic Tear of right rotator cuff, unspecified tear extent, unspecified whether traumatic [M75.101] Procedures MS SURGICAL ARTHROSCOPY JASON W/CORACOACRM LIGM RLS ARTHROSCOPY SHOULDER SUBACROMIAL DECOMPRESSION Right possible ARTHROSCOPY SHOULDER ROTATOR CUFF REPAIR Right possible open TENODESIS - BICEPS Right possible [place] InSpace balloon placement Referral ID Status Reason Start Date Expiration Date Visits Re quested Visits Authorized [id number] 1 1 Encounter Details Date Type Department Care Team (Late st Contact Info) Description 01/13/2023 10:30 AM CHEMICAL PROCESS EQUIPMENT OPERATOR - 01/13/2023 1:00 PM CHEMICAL PROCESS EQUIPMENT OPERATOR Surgery [facility] [address] [place] [id number] Shaan Samaniego MD [address] [facility] [address] [place] [address] ARTHROSCOPY SHOULDER SUBACROMIAL DECOMPRESSION (Right) Right open TENODESIS - BICEPS (Right) Surgery Details Date/Time Status Location OR Service Patient Class Case Class Case Type Trauma Case? 01/13/2023 10:30 AM Posted [facility] OPERATING ROOM OR 2 Orthopaedics Outpatient Elective Panel 1 Procedure LRB Anes Op Region Wound Class Comments ARTHROSCOPY SHOULDER SUBACRO MIAL DECOMPRESSION (Right) Right open TENODESIS - BICEPS (Right) Right Choice Shoulder Class I - [place] Right possible ARTHROSCOPY S HOULDER ROTATOR CUFF REPAIR Right Choice Shoulder Class I - Clean Right possible open TENODESI S - BICEPS Right Choice Arm Upper Class I - Clean Right possible Nuris InSpa ce balloon placement Right Choice Shoulder Class I - Clean Surgeon Surgeon Role Service Panel Shaan Samaniego MD Primary Orthopae dics 1 Pam Castro MD Resident - Assisting Orthopae dics 1 Special Needs h/o watery eyes - Pt. developed eye irritation after his shoulder surgery @ [facility] 02/2022 & was discharged with Erythromycin Ointment but had no obvious corneal abrasions - per anesthesia record/pt./TM/srr documented in this encounter Social History Tobacco Use Types Packs/Day Years [...] on file Legal Sex Male 8:42 AM CHEMICAL PROCESS EQUIPMENT OPERATOR Gender Identity Not on file Sexual Orientation Straight 04/01/2020 8: 42 PM CHEMICAL PROCESS EQUIPMENT OPERATOR documented as of this encounter Last Filed Vital Signs Vital Sign Reading Time Taken Comments Blood Pressure 137/89 01/13/2023 12:55 PM CHEMICAL PROCESS EQUIPMENT OPERATOR Pulse 71 01/13/2023 1:00 PM CHEMICAL PROCESS EQUIPMENT OPERATOR Temperature 36.4 ??C (97.5 ??F) 01/13/2023 12:[address] Respiratory Rate 16 01/13/2023 1:00 PM CHEMICAL PROCESS EQUIPMENT OPERATOR Oxygen Saturation 93% 01/13/2023 1:00 PM CHEMICAL PROCESS EQUIPMENT OPERATOR Inhaled Oxygen Concentration - - Weight 116 kg (255 lb 12.8 oz) 01/13/2023 8:52 A M CHEMICAL PROCESS EQUIPMENT OPERATOR Height 182.9 cm (6') 01/13/2023 8:52 AM CHEMICAL PROCESS EQUIPMENT OPERATOR Body Mass Index 34.69 01/13/2023 8:52 AM CHEMICAL PROCESS EQUIPMENT OPERATOR documented in this encounter Discharge Instructions * Discharge Instructions* Shaan Samaniego MD - 01/13/2023 10:04 AM CHEMICAL PROCESS EQUIPMENT OPERATOR [facility] Department of Orthopaedic Surgery Shaan Samaniego M.D. [facility] [address] [facility] [address] [place] [address] Shoulder Surgery (Outpatient) Postoperative Instructions Medications Take 1-2 tablets of oxycodone every 4-6 hours as needed for pain. Try to taper the use of your narcotic pills as soon as you feel comfortable. You may take Extra Strength Tylenol or Tylenol only in place of the pain pills. Do not take additional Tylenol if you are taking Percocet, [place], or Vicodin. You have been given a prescription for a stool softener, Colace. This medication is routinely used as pain medicines can be very constipating. Please take as directed unless you experience loose stools or diarrhea. Diet Resume a regular diet as soon as possible. It is advisable to start with clear liquids until nauseais gone. Sling Use the sling for several days until the discomfort has decreased and then discontinue. Activity Increase your general activity level as the effects of the anesthetic medications have worn off andyour strength improves. Remain in your shoulder sling or brace as instructed above. Remove the sling 3-4 times per day to allow gentle elbow motion as tolerated beginning the day after surgery. Place a pillow behind the elbow when resting either reclined or flat, this generally helps with shoulder pain. * Pendulum exercises: You may start pendulum range of motion exercises as instructed by your physician on postop day number 3. First remove the sling, then lean forward and move the shoulder in gentle circular motions with your arm as relaxed as possible. Gradually enlarge the circular motions. These should be performed for roughly 90 seconds clockwise and then counter clockwise 3 times. Perform these exercises 3 times per day. Active motion: Do not actively (on your own) lift your operative arm away from the side of the bodyor reach behind your back until cleared by your physician. This is vitally important to protect your surgical repair. Dressing Care Remove the shoulder dressing on postoperative day#5 only if your surgery required an open incision,this includes biceps tendon repairs. You may begin to shower upon dressing removal and quickly pat the wounds dry. Leave the incisions open to air. Simply allow the water to wash over the site and then pat dry. Do not rub the incisions.Make sure your axilla (armpit) is completely dry after showering. Slight wound drainage is common. If noted, please cover with small bandages (Band-Aids) until the drainage stops. Bruising of the shoulder and the upper arm are common after surgery, even arthroscopic surgery. This can be significant. Do not worry, this is normal. Ice is very important after shoulder surgery and should be used continuously over the dressing for the first 3 days. Following dressing removal, use the ice 3 times per day for 45 minutes, especiallybefore nighttime. You may use either ice packs, icing systems or a large frozen bag of vegetables that can be broken up and molded to the shoulder and reused. Follow Up Generally, a follow up appointment has been made for you at the time of surgery. You can call the scheduling center to confirm your appointment . Notify our office if you have any of the following: * Fever over 101.5 degrees. * Excessive blood on your dressing. * Numbness or tingling in your arm or hand that was not present before surgery and has lasted more than 24 hours after the regional block has worn off. * Drainage from any incision that last longer than 5 days following surgery. ICAL PROCESS EQUIPMENT OPERATOR documented in this encounter Medications at Time of Discharge allopurinoL (ZYLOPRIM) 100 mg tabletIndications:pre vention of acute gout attack Take 1 tablet (100 mg total) by mouth 2 (two) times a day 0 alpha lipoic acid 600 mg capsuleIndications:he alth Take 1 capsule (600 mg total) by mouth daily before breakfast amLODIPine (NORVASC) 5 mg tabletIndications:hyp ertension Take 1 tablet (5 mg total) by mouth every morning 2 chlorthalidone 25 mg tabletIndications:hyp ertension Take 1 tablet (25 mg total) by mouth every morning 0 cholecalciferol (VITAMIN D-3) 2000 unit tabletIndications:Low serum vitamin D Take 1 tablet (2,000 Units total) by mouth nightly 90 tablet 3 2 coenzyme Q10 200 mg capsuleIndications:he alth Take 1 capsule (200 mg total) by mouth 2 (two) times a day cyanocobalamin (Vitamin B-12) 1,000 mcg tabletIndications:Pre vention of Vitamin B12 Deficiency Take 1 tablet (1,000 mcg total) by mouth daily before breakfast docusate sodium (COLACE) 100 mg capsuleIndications:co nstipation Take 1 capsule (100 mg total) by mouth 2 (two) times a day as needed for constipation (while taking narcotics) 30 capsule [address] (NexIUM) 20 mg capsuleIndications:Tr eatment of Non-Bleeding Gastric Disorder Take 2 capsules (40 mg total) by mouth every morning bid 0 fenofibrate nanocrystallized (TRICOR) 48 mg tabletIndications:hyp erlipidemia Take 1 tablet (48 mg total) by mouth nightly ibuprofen (ADVIL,MOTRIN) 200 mg tab/capIndications:Pa in Take 2 tablet/capsule (400 mg total) by mouth every 6 (six) hours as needed for pain iron fum/vit C/ascorbate sod (IRON PLUS VITAMIN C ORAL)Indications:supp lement Take 1 Dose by mouth daily before breakfast Klor-Con M20 20 mEq CR tabletIndications:sup plement Take 1 tablet (20 mEq total) by mouth 3 (three) times a day 0 loperamide (IMODIUM) 2 mg capsule Take 2 capsules (4 mg total) by mouth 3 (three) times a day as needed for diarrhea 180 capsule 4 2 magnesium gluconate 200 mg tabletIndications:hyp omagnesemia Take 1 tablet (200 mg total) by mouth daily before breakfast multivitamin-minerals -lutein tabletIndications:sup plement Take 1 tablet by mouth every morning oxyCODONE (ROXICODONE) 5 mg immediate release tabletIndications:Toño n 1-2 tablets q4-6 hours PRN pain 40 tablet 3 pregabalin (LYRICA) 50 mg capsuleIndications:ne rve pain Take 1 capsule (50 mg total) by mouth 2 (two) times a day 2 sulfaSALAzine (AZULFIDINE) 500 mg tabletIndications:Hr Associate hn's 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 (CMS/HCC) (HCC),High risk medications (not anticoagulants) long-term use Take 2 tablets (1,000 mg total) by mouth 4 (four) times a day 240 tablet 2 3 tadalafiL (ADCIRCA) 10 mg tablet Take 1 tablet (10 mg total) by mouth daily as needed for erectile dysfunction 2 testosterone cypionate (DEPO-TESTOTERONE) 200 mg/mL injectionIndications: Androgen Deficiency Inject 0.5 mL (100 mg total) into the muscle as instructed every 14 (fourteen) days 1 traZODone (DESYREL) 50 mg tabletIndications:ins omnia associated with depression Take 1 tablet (50 mg total) by mouth nightly as needed for sleep PRN 2 documented as of this encounter Ordered Prescriptions Prescription Sig Dispense Quantity Refills Last Filled Start Date End Date oxyCODONE (ROXICODONE) 5 mg immediate release tabletIndications :Pain 1-2 tablets q4-6 hours PRN pain 40 tablet 01/13/2023 docusate sodium (COLACE) 100 mg capsuleIndication s:constipation Take 1 capsule (100 mg total) by mouth 2 (two) times a day as needed for constipation (while taking narcotics) 30 capsule 1 01/13/2023 documented in this encounter Discharge Disposition Disposition Code Departure Means Destination Comment s Discharge to home or self care documented in this encounter Progress Notes * Ivy Barajas, BHAVNA - 01/13/2023 1:30 PM CST Kris Spence [phone] 01/14/2023 Surgeon(s) and Role: * Shaan Samaniego MD - Primary * Pam Castro MD - Resident - Assisting Block Type: ISB Procedure: ARTHROSCOPY SHOULDER SUBACROMIAL DECOMPRESSION (Right) Right open TENODESIS - BICEPS (Right) (R), Right possible ARTHROSCOPY SHOULDER ROTATOR CUFF REPAIR (R), Right possible open TENODESIS- BICEPS (R), Right possible [employer] InSpace balloon placement (R) Anesthesiologist: Fredy Catheter and pump education completed with patient and family member present. Written instructions provided. POD #1 Date: 01/14/23 1035 Basal Rate: 6 Bolus Frequency: none Pain Scale: 0 Frequency of PO pills: none Catheter site free from erythema, drainage, not dislodged, not leaking. Comments: Reviewed use of pain pump and narcotics. Pt does not want to take oxycodone because it makes him hallucinate. Suggested taking some Tylenol OTC to get ahead of discomfort that will occur once concentrated local wears off later today. Pt verbalized understanding. POD #2 Date: 01/15/23 - left message POD #3 Date: 01/16/23 Catheter removed without difficulty at home. Site free from erythema or edema per pt. vIy Barajas NP ICAL PROCESS EQUIPMENT OPERATOR documented in this encounter H&P Notes * Shaan Samaniego MD - 01/13/2023 8:59 AM CST I have reviewed the H&P, examined the patient, and endorse the findings as written. Plan of Care : Based on the above findings, I consider Kris Spence to be an acceptable risk for : Procedure(s): ARTHROSCOPY SHOULDER SUBACROMIAL DECOMPRESSION Right possible ARTHROSCOPY SHOULDER ROTATOR CUFF REPAIR Right possible open TENODESIS - BICEPS Right possible [employer]uris InSpace balloon placement ICAL PROCESS EQUIPMENT OPERATOR Source Note - Shaan Samaniego MD - 01/03/2023 5:22 PM CHEMICAL PROCESS EQUIPMENT OPERATOR Called the patient to discuss her upcoming surgery. Use of [place] in space balloon has been denied. We reviewed why this is and that the insurance company considers this experimental. While I disagree with this assessment, I think that we could still get good relief from arthroscopic subacromial decompression, possible rotator cuff repair, possible biceps tenodesis. We again reviewed the risks, benefits, alternatives, and required rehabilitation. We reviewed reverse total shoulder arthroplasty. Given his preserved range of motion and his primary complaint of pain rather than weakness, we aregoing to proceed with the surgery as scheduled. ICAL PROCESS EQUIPMENT OPERATOR * Bina Cotton NP - 01/13/2023 8:26 AM CST Outpatient Pre-Procedure History and Physical Subjective Patient is a 62 y.o. male with chief complaint of right shoulder pain. Indication For Procedure: Pre-op Diagnosis * Tear of right rotator cuff, unspecified tear extent, unspecified whether traumatic [M75.101] Planned Procedure ARTHROSCOPY SHOULDER SUBACROMIAL DECOMPRESSION (R), Right possible ARTHROSCOPY SHOULDER ROTATOR CUFF REPAIR (R), Right possible open TENODESIS - BICEPS (R), Right possible Nuris InSpace balloon placement (R) HPI: Patient is a 62 year old male with a right rotator cuff tear who presents today for right shoulder arthroscopy, subacromial decompression, possible rotator cuff repair, possible open biceps tenodesis, possible nuris InSpace balloon placement. Past Medical History: Diagnosis Date Pam positive Crohn's disease (CMS/HCC) (HCC) GERD (gastroesophageal reflux disease) well controlled with meds HLD (hyperlipidemia) HTN (hypertension) well controlled Liver hemangioma Low testosterone Motion sickness Nephrolithiasis 2018 Obesity Past Surgical History: Procedure Laterality Date ABDOMINAL WALL DEFECT REPAIR 2013 reconstruction CYSTOSCOPY W/ LASER LITHOTRIPSY Right 2013, 2017 HEMANGIOMA EXCISION 2016 liver INCISIONAL HERNIA REPAIR 04/13/2021 AWR POUCHOSCOPY 05/2022 RESTORATIVE PROCTOCOLECTOMY 2003 J-pouch and reversed ROTATOR CUFF REPAIR Left 02/2022 VENTRAL HERNIA REPAIR 06/2009 Medications Prior to Admission Medication Sig Dispense Refill Last Dose allopurinoL (ZYLOPRIM) 100 mg tablet Take 1 tablet (100 mg total) by mouth 2 (two) times a day 01/13/2023 alpha lipoic acid 600 mg capsule Take 1 capsule (600 mg total) by mouth daily before breakfast 12/22/2022 amLODIPine (NORVASC) 5 mg tablet Take 1 tablet (5 mg total) by mouth every morning 01/13/2023 chlorthalidone 25 mg tablet Take 1 tablet (25 mg total) by mouth every morning 12/22/2022 cholecalciferol (VITAMIN D-3) 2000 unit tablet Take 1 tablet (2,000 Units total) by mouth nightly (Patient taking differently: Take 1 tablet (2,000 Units total) by mouth nightly) 90 tablet 3 12/22/2022 coenzyme Q10 200 mg capsule Take 1 capsule (200 mg total) by mouth 2 (two) times a day 12/22/2022 cyanocobalamin (Vitamin B-12) 1,000 mcg tablet Take 1 tablet (1,000 mcg total) by mouth daily before breakfast 12/22/[address] (NexIUM) 20 mg capsule Take 2 capsules (40 mg total) by mouth every morning bid 01/13/2023 fenofibrate nanocrystallized (TRICOR) 48 mg tablet Take 1 tablet (48 mg total) by mouth nightly 12/21/2022 ibuprofen (ADVIL,MOTRIN) 200 mg tab/cap Take 2 tablet/capsule (400 mg total) by mouth every 6 (six)hours as needed for pain Past Week iron fum/vit C/ascorbate sod (IRON PLUS VITAMIN C ORAL) Take 1 Dose by mouth daily before breakfastPast Month Klor-Con M20 20 mEq CR tablet Take 1 tablet (20 mEq total) by mouth 3 (three) times a day Past Month loperamide (IMODIUM) 2 mg capsule Take 2 capsules (4 mg total) by mouth 3 (three) times a day as needed for diarrhea (Patient taking differently: Take 2 capsules (4 mg total) by mouth 3 (three) timesa day as needed for diarrhea) 180 capsule 4 01/13/2023 pregabalin (LYRICA) 50 mg capsule Take 1 capsule (50 mg total) by mouth 2 (two) times a day 01/13/2023 testosterone cypionate (DEPO-TESTOTERONE) 200 mg/mL injection Inject 0.5 mL (100 mg total) into themuscle as instructed every 14 (fourteen) days Past Week traZODone (DESYREL) 50 mg tablet Take 1 tablet (50 mg total) by mouth nightly as needed for sleep PRN Past Week inFLIXimab (REMICADE) 100 mg injection Infuse 120 mL (1,200 mg total) into a venous catheter every 4 (four) weeks Infused at: CAM 5C Frequency change as of 06/30/21 r/t low IFX drug level from 06/07/21. More than a month magnesium gluconate 200 mg tablet Take 1 tablet (200 mg total) by mouth daily before breakfast Morethan a month iqftoiddceho-wobeqshe-ohhqgy tablet Take 1 tablet by mouth every morning More than a month sulfaSALAzine (AZULFIDINE) 500 mg tablet Take 2 tablets (1,000 mg total) by mouth 4 (four) times a day (Patient taking differently: Take 2 tablets (1,000 mg total) by mouth 4 (four) times a day) 240 tablet 2 More than a month tadalafiL (ADCIRCA) 10 mg tablet Take 1 tablet (10 mg total) by mouth daily as needed for erectile dysfunction Unknown Allergies Allergen Reactions Fruit Extracts Hives Tomatoes and oranges [place] Juice Hives [place] Oil Hives Sulfa (Sulfonamide Antibiotics) Hives and Rash Tomato Hives Imuran [Azathioprine] Other (See comments) Pancreatitis (Imuran) Social History Tobacco Use Smoking status: Never Smokeless tobacco: Never Substance and Sexual Activity Drug use: Not Currently Sexual activity: Defer Alcohol Use: Not At Risk (12/22/2022) AUDIT-C Frequency of Alcohol Consumption: 2-4 times a month Average Number of Drinks: 1 or 2 Frequency of Binge Drinking: Never Social History Substance and Sexual Activity Drug Use Not Currently Vitals: 12/22/22 1355 01/13/23 0852 Temp: 36.4 ??C (97.5 ??F) TempSrc: Temporal Weight: 111.1 kg (245 lb) 116 kg (255 lb 12.8 oz) Height: 182.9 cm (6') 182.9 cm (6') Review of Systems: Review of systems per HPI and otherwise all other systems are negative Physical exam: Lungs: clear to auscultation bilaterally Heart: regular rate and rhythm, S1, S2 normal, no murmur, click, rub or gallop Neurologic: Alert and oriented x4, grossly intact Bina Cotton NP Cosigned by Shaan Samaniego MD at 01/13/2023 10:12 AM CHEMICAL PROCESS EQUIPMENT OPERATOR ICAL PROCESS EQUIPMENT OPERATOR ICAL PROCESS EQUIPMENT OPERATOR documented in this encounter Miscellaneous Notes * Perioperative Nursing Note - Rossy Boothe RN - 01/13/2023 12:11 PM CHEMICAL PROCESS EQUIPMENT OPERATOR 1158 - pt admitted to pacu, report received from SATELLITE INSTALLATION TECHNICIAN and DANCING INSTRUCTOR. VSS, pt drowsy but arousable to voice. Denies pain. O2 sats drop to mid 80s, O2 NC placed on pt at 4 L, encouraged deep breaths, Sats increase to mid 90s. Bulky dressing CDI to right shoulder, breg sling to RUE. Ice pack to right shoulder. Bed in lowest and locked position, side rails up x2. 1218 - pt continues to deny pain, started with PO intake. 1236 -pt's called to bedside. 1255 - Dr. Samaniego at bedside to speak with pt and pt's . AVS reviewed at bedside with pt and pt's . All questions answered and understanding verbalized. Pt and pt's state they watched the pain pump video in pre op holding. 1313 - IV removed, catheter tip intact, dressing applied. Monitors removed, pt dressed with RN assistance, tolerated well. Breg sling to RUE, reviewed with pt and pt's . All questions answered and understanding verbalized. 1324 - pt assisted to wheelchair for discharge, taken to bathroom before leaving, voided without issue. ICAL PROCESS EQUIPMENT OPERATOR * Op Note - Shaan Samaniego MD - 01/13/2023 10:51 AM CST Operative Report SURGEON: Shaan Samaniego MD SURGICAL TEAM: Surgeon(s) and Role: * Shaan Samaniego MD - Primary * Pam Castro MD - Resident - Assisting DATE OF SURGERY : 01/13/2023 PREOPERATIVE DIAGNOSIS: Right rotator cuff tear POSTOPERATIVE DIAGNOSIS: Right irreparable rotator cuff tear, severe biceps tendinopathy PROCEDURE: ARTHROSCOPY SHOULDER SUBACROMIAL DECOMPRESSION (Right) with acromioplasty, arthroscopic limited glenohumeral debridement, Right open TENODESIS - BICEPS (Right) (R) ANESTHESIA: General / regional OPERATIVE DETAILS PROCEDURE: The patient presented and identified themselves in the preoperative holding area. They identified the right shoulder as the operative site and the operative shoulder was marked in standard fashion. After placement of a scalene block and catheter, the patient was taken to the operating room where supplemental general endotracheal anesthesia was placed. Pneumatic compression devices were placed on the lower extremities and then the patient was placed into the beach chair position. 20 cc of 1% Lidocaine containing epinephrine were then placed in the subacromial space and then the right upper extremity was prepped and draped in the usual sterile fashion. All bony landmarks were outlined carefully as well as portal locations. The arthroscope was then placed initially in the posterior portal. After entrance into the glenohumeral joint, excellent visualization was obtained and an anterior portal was quickly established. A full radius resector was inserted here and then the rotator interval was debrided to appearance of the CA ligament, removing both the superior glenohumeral ligament as well as coracohumeral ligament medially. The flayed edges of the glenoid labrum were then debrided both anteriorly and posteriorly. The biceps was severely tendinopathic and a biceps tenotomy was performed in preparation for a tenodesis. The rotator cuff tear was then visualized from the intraarticular perspective and the location noted. The scope was then withdrawn, inferior traction was placed on the arm, and then the scope was placed in the subacromial space. Medial and lateral sweeping was performed to remove adhesions and then an anterolateral portal was established on the anterior edge of the rotator cuff tear. Excellent subacromial visualization was obtained in this fashion. A full radius resector was inserted and a comprehensive subacromial bursectomy was performed. The anterior inferior CA ligament was then released using the ArthroCare multipolar cautery device and then the soft tissue excavated from the undersurface of the acromion. An anterior inferior acromioplasty was then performed with a joellen, removing any osteophytic bone along the calcified CA ligament. Very little normal bone was removed. A smooth undersurface was obtained. The joellen was then used to decorticate thegreater tuberosity at the location of the rotator cuff tear, obtaining a bleeding base of bone for healing. A grasper device was then inserted from laterally and the size of the tear as well as the reduction capabilities assessed by grasping the cuff and pulling laterally. There was no tissue that could be reduced. Therefore, as anticipated, a subacromial bursectomy and rotator cuff debridement was performed. A spinal needle was then introduced into the subacormial space under direct visualized. At this point, the instruments were withdrawn. Attention was then turned to open biceps tenodesis. An incision centered over the inferior margin of the pectoralis major tendon in the medial arm was made measuring approximately 4 cm. After hemostasis was achieved, blunt dissection was taken down to the humeral shaft. The bicipital groove was identified taking care to stay inferior to the pectoralis major. Within the bicipital groove, the long head of the biceps was identified and removed out of the wound. The proximal biceps kit was then used to place a suture anchor in the bicipital groove 1 cm proximal to the inferior pectoralis major tendon margin. One limb from was then passed through the biceps starting at the musculotendinous juncti on and working distally and then proximally in [place] fashion. The other limb of the same suture was then passed simply through the tendon and pulled to reduce the biceps to the proximal humerus after cutting residual tendon. These limbs were then tied together. Appropriate tension and position were confirmed with palpation. The remaining suture was unloaded from the anchor. The wound was then irrigated and the incision closed it 3 0 and 4 Monocryl. The portal sites were closed in a simple fashion with sutures. 1cc of 40mg/mL was then injected into the spinal needle and it was removed. A bulky dressing was applied, anesthesia reversed, and patient was taken to recovery, having tolerated the procedure well and having sustained no intraoperative complications. Estimated Blood Loss: 25 mL Complications: None Condition on Discharge from the operating room was stable Shaan Samaniego MD Date: 01/16/2023 Time: 6:16 PM TEACHING ATTESTATION : I was present and directly participated in the entire procedure (including opening and closing). IMPLANTS: Implant Name Type Inv. Item Serial No. Dry Molder Lot No. LRB No. Used Action [employer] System Biceps Hinckley Slotted Drill Guide 1.9mm Drill Fibertak AR- 3670 - [id number] [employer] System Biceps Hinckley Slotted Drill Guide 1.9mm Drill Fibertak AR-3670 Ar[employer]rex Inc [id number] Right 1 Implanted ICAL PROCESS EQUIPMENT OPERATOR * Brief Op Note - Pam Castro MD - 01/13/2023 10:51 AM CST Operative Progress Note Surgical Team: Surgeon(s) and Role: * Shaan Samaniego MD - Primary * Pam Castro MD - Resident - Assisting Anesthesiologist: Carmine Crystal MD SATELLITE INSTALLATION TECHNICIAN: Luke Starks CRNA; Isela Reeves CRNA Senior Nurse Manager: Neal Harris RN Scrub: Rina Marte RN Orientee Senior Nurse Manager: Gerson Pan RN DATE OF SURGERY : 01/13/2023 Preoperative Diagnosis: Pre-op Diagnosis * Tear of right rotator cuff, unspecified tear extent, unspecified whether traumatic [M75.101] Postoperative Diagnosis: Post-op Diagnosis * Tear of right rotator cuff, unspecified tear extent, unspecified whether traumatic [M75.101] Procedure(s): Procedure(s) (LRB): ARTHROSCOPY SHOULDER SUBACROMIAL DECOMPRESSION (Right) Right possible ARTHROSCOPY SHOULDER ROTATOR CUFF REPAIR (Right) Right possible open TENODESIS - BICEPS (Right) Right possible [place] [employer] balloon placement (Right) Operative Findings: Right subacromial bursitis Biceps tendinitis Estimated Blood Loss: 25 mL Intraoperative Fluids: 800 mls Specimens: No specimen collected in procedure Implants: Implant Name Type Inv. Item Serial No. Dry Molder Lot No. LRB No. Used Action [employer] System Biceps Hinckley Slotted Drill Guide 1.9mm Drill Fibertak AR- 3670 - [id number] [employer] System Biceps Hinckley Slotted Drill Guide 1.9mm Drill Fibertak AR-3670 Ar[employer]rex Inc [id number] Right 1 Implanted Blood/Blood Products Transfused: 0 mls Complications: None Condition on Discharge from the operating room was stable Pam Castro MD Date: 01/13/2023 Time: 11:55 AM TEACHING ATTESTATION : I was present and directly participated in the entire procedure (including opening and closing). Cosigned by Shaan Samaniego MD at 01/14/2023 8:45 PM CHEMICAL PROCESS EQUIPMENT OPERATOR ICAL PROCESS EQUIPMENT OPERATOR ICAL PROCESS EQUIPMENT OPERATOR * Perioperative Nursing Note - Mayra Brambila RN - 01/13/2023 8:53 AM CST Pt's with pt and will care for pt for 24 hours post surgery. ICAL PROCESS EQUIPMENT OPERATOR * Pre-Procedure Instructions - Ada Vee RN - 01/12/2023 10:37 AM CHEMICAL PROCESS EQUIPMENT OPERATOR We are pleased that you and your doctor have chosen [facility] for your surgery. We hope the following information will help make your visit a pleasant one. The name of the building is [facility] in [place]. Directions to facility (address [address] [address] [address]. Zip [id number] When you enter the building, look directly to your left, you will see 2 glass double doors. These double doors say [address]. Go through those double doors and check in with the clinic receptionist. Bring glass/case- Bring pillows, leave in car. Pt has [employer] ice machine. Wear loose-fitting clothes. Something with an elastic waist on the bottom, such as gym shorts or sweat pants depending on the weather. T-shirt on top or a shirt with a loose sleeve unless you are having shoulder surgery then wear a loose- fitting button-down shirt or a shirt that zips up the front. Pt instructed not to eat or drink anything after Midnight. No gum, no mints, no candy, no cough drops, no CBD oil, no marijuana, no Chewing tobacco, or vaping. No ice or water. You may brush your teeth, just make sure you spit it all out. Instructed to patient to refer to [facility] surgery guide page 6 for any questions regarding eating and drinking day of surgery. For medications that the Nurse Practitioner instructed you to take on the morning of surgery, take the medications with a few sips of water. Pt's. LEENAN [phone] will be with patient and care for patient for the first 24 hours post-op. Pt. Instructed to arrive at 0830 for 1030 procedure. Procedure is scheduled for 2.5 hour(s). Pt. Denies any of the following symptoms: Nausea/vomiting/diarrhea, loss of taste or smell, rash orsores, body/muscle/joint aches, cough, sore throat, fever/chills, severe headache or Shortness of breath. Pt. is asymptomatic and denies any exposure to Covid or any Covid symptoms. Explained to patient, if you develop any symptoms of fever, chills, headache, cough, sore throat, body aches or is exposed to anyone that has been diagnosed, tested or quarantined for the COVID-19 you will not be allowed to enter the building or to have your surgery per anesthesia's guidelines. Explained to patient to please call the morning of surgery, any time after 5:30 a.m. if you or your caregiver develops any of these symptoms or is exposed to anyone that has been diagnosed, tested or quarantined for COVID-19. Pt. Reports understanding. Once your physician has completed your surgery, he will call your caregiver to notify them your surgery is complete, and you are heading to the Recovery room. Your caregiver will not be called back to be with you until you are awake and ready for discharge. The nurse who is caring for you will callyour caregiver to come back to be with you for discharge instructions. Explained to patient that the self-serve cafe is across the [address] from the surgery center. Explainedto patient if their caregiver would like anything to eat or drink, they may bring their own or purchase it from the refreshment area. ICAL PROCESS EQUIPMENT OPERATOR * Pre-Procedure Instructions - Katerin Simeon NP - 01/05/2023 9:00 AM CST Center for Preoperative Assessment and Planning CPAP Clinic Location: [facility] The night before your surgery: * Do not eat anything after midnight the night before your procedure. and * Do not smoke or use tobacco products after midnight the night before surgery. It is best to stop smoking now to improve your health. The morning of your surgery: * You may have clear liquids on your surgery day. You must stop drinking two hours before you arrive to the surgery facility. Acceptable clear liquids include water, clear sports drinks, black coffee, or clear soda. DO NOT drink any milk, creamer, or alcohol. * Your surgeon's office may have provided additional instructions or restrictions. Please follow those instructions. * You may brush your teeth and rinse your mouth out. * Do not glue your dentures. * Do not wear jewelry, body piercings, makeup, hairpins, false eyelashes or contact lenses to the hospital. * Leave any valuables at home or with your family. * If you have an implantable device with a remote, bring the remote with you on the day of surgery. Outpatient Surgery: * You must have a responsible adult drive you home and stay with you for 24 hours after your surgery * You cannot be alone at home or in a hotel * Please call your surgeon's office if you do not have someone to drive you home and/or stay with you after surgery Instructions For Your Medications: Pre-Surgery Instructions: Medication Instructions allopurinoL (ZYLOPRIM) 100 mg tablet Take morning of surgery alpha lipoic acid 600 mg capsule Don't take on day of surgery amLODIPine (NORVASC) 5 mg tablet Take morning of surgery chlorthalidone 25 mg tablet Don't take on day of surgery cholecalciferol (VITAMIN D-3) 2000 unit tablet Don't take on day of surgery coenzyme Q10 200 mg capsule Don't take on day of surgery cyanocobalamin (Vitamin B-12) 1,000 mcg tablet Don't take on day of surgery esomeprazole DR (NexIUM) 20 mg capsule Take morning of surgery fenofibrate nanocrystallized (TRICOR) 48 mg tablet Take night prior to procedure per usual schedule ibuprofen (ADVIL,MOTRIN) 200 mg tab/cap Don't take on day of surgery inFLIXimab (REMICADE) 100 mg injection Don't take on day of surgery iron fum/vit C/ascorbate sod (IRON PLUS VITAMIN C ORAL) Don't take on day of surgery Klor-Con M20 20 mEq CR tablet Don't take on day of surgery loperamide (IMODIUM) 2 mg capsule Take on day of surgery if needed magnesium gluconate 200 mg tablet Don't take on day of surgery bwiqseubfdxk-mtncjnkc-cyfbsu tablet Don't take on day of surgery pregabalin (LYRICA) 50 mg capsule Take morning of surgery sulfaSALAzine (AZULFIDINE) 500 mg tablet Follow prescriber instructions tadalafiL (ADCIRCA) 10 mg tablet Don't take on day of surgery testosterone cypionate (DEPO-TESTOTERONE) 200 mg/mL injection Don't take on day of surgery traZODone (DESYREL) 50 mg tablet Take night prior to procedure per usual schedule if needed General Instructions For Medications: * You may continue your non-steroidal anti-inflammatory medication: Ibuprofen unless otherwise instructed per surgeon. For medications that you are instructed to take on the morning of surgery, take the medications with a few sips of water. Stop all of these medications 7-14 days prior to your surgery: Vitamin E, Herbal medicines, Diet Pills If you have pain, you may take tylenol (acetaminophen). Do not take more than 6 tablets or 3000 mg (3 g) within a 24 period. Call your surgeon and the CPAP clinic if any of the following happens before surgery: Any changes in your health You have a fever You have any signs of an infection (chest, urinary tract or tooth) You have been to the Emergency Room or were in the hospital You have started taking any new medications You have questions about a bowel prep or special diet before surgery You have symptoms of COVID-19 such as a new or worsening cough, shortness of breath, fever, body aches, loss of taste or smell, diarrhea or vomiting, or sore throat. You have a household contact with COVID-19. You test positive for COVID-19. ICAL PROCESS EQUIPMENT OPERATOR * Perioperative Nursing Note - Carlos A Xavier RN - 12/22/2022 2:11 PM CHEMICAL PROCESS EQUIPMENT OPERATOR Center for Preoperative Assessment and Planning Perioperative Nursing Note Telephone Preoperative Evaluation ([facility]) - TELEPHONE ONLY, NO PHYSICAL EXAM Date: 12/22/22 This assessment was completed with the patient. Vitals: 12/22/22 1355 Weight: 111.1 kg (245 lb) Height: 182.9 cm (6') CHEST CIRCUMFERENCE: Social History Tobacco Use Smoking Status Never Smokeless Tobacco Never Substance and Sexual Activity Drug Use Never Alcohol Use Q1: How often do you have a drink containing alcohol?: 2-4 times a month Q2: How many drinks containing alcohol do you have on a typical day when you are drinking?: 1 or 2 Q3: How often do you have six or more drinks on one occasion?: Never Outpatient Medications Marked as Taking for the 01/13/23 encounter (Hospital Encounter) Medication Sig Dispense Refill allopurinoL (ZYLOPRIM) 100 mg tablet Take 1 tablet (100 mg total) by mouth 2 (two) times a day alpha lipoic acid 600 mg capsule Take 1 capsule (600 mg total) by mouth daily before breakfast amLODIPine (NORVASC) 5 mg tablet Take 1 tablet (5 mg total) by mouth every morning chlorthalidone 25 mg tablet Take 1 tablet (25 mg total) by mouth every morning cholecalciferol (VITAMIN D-3) 2000 unit tablet Take 1 tablet (2,000 Units total) by mouth nightly (Patient taking differently: Take 1 tablet (2,000 Units total) by mouth nightly) 90 tablet 3 coenzyme Q10 200 mg capsule Take 1 capsule (200 mg total) by mouth 2 (two) times a day cyanocobalamin (Vitamin B-12) 1,000 mcg tablet Take 1 tablet (1,000 mcg total) by mouth daily before breakfast esomeprazole DR (NexIUM) 20 mg capsule Take 2 capsules (40 mg total) by mouth every morning bid fenofibrate nanocrystallized (TRICOR) 48 mg tablet Take 1 tablet (48 mg total) by mouth nightly ibuprofen (ADVIL,MOTRIN) 200 mg tab/cap Take 2 tablet/capsule (400 mg total) by mouth every 6 (six)hours as needed for pain inFLIXimab (REMICADE) 100 mg injection Infuse 120 mL (1,200 mg total) into a venous catheter every 4 (four) weeks Infused at: CAM 5C Frequency change as of 06/30/21 r/t low IFX drug level from 06/07/21. iron fum/vit C/ascorbate sod (IRON PLUS VITAMIN C ORAL) Take 1 Dose by mouth daily before breakfast Klor-Con M20 20 mEq CR tablet Take 1 tablet (20 mEq total) by mouth 3 (three) times a day loperamide (IMODIUM) 2 mg capsule Take 2 capsules (4 mg total) by mouth 3 (three) times a day as needed for diarrhea (Patient taking differently: Take 2 capsules (4 mg total) by mouth 3 (three) timesa day as needed for diarrhea) 180 capsule 4 magnesium gluconate 200 mg tablet Take 1 tablet (200 mg total) by mouth daily before breakfast wsvovxsnxzjn-lfuntuno-hvvovc tablet Take 1 tablet by mouth every morning pregabalin (LYRICA) 50 mg capsule Take 1 capsule (50 mg total) by mouth 2 (two) times a day sulfaSALAzine (AZULFIDINE) 500 mg tablet Take 2 tablets (1,000 mg total) by mouth 4 (four) times a day (Patient taking differently: Take 2 tablets (1,000 mg total) by mouth 4 (four) times a day) 240 tablet 2 tadalafiL (ADCIRCA) 10 mg tablet Take 1 tablet (10 mg total) by mouth daily as needed for erectile dysfunction testosterone cypionate (DEPO-TESTOTERONE) 200 mg/mL injection Inject 0.5 mL (100 mg total) into themuscle as instructed every 14 (fourteen) days traZODone (DESYREL) 50 mg tablet Take 1 tablet (50 mg total) by mouth nightly as needed for sleep PRN Implants Mesh [employer] Endo Surgery [id number] Square Mesh Surgical Prolene Polypropylene - Sn/A - [id number] - Implanted Abdomen Inventory item: ETHICON ENDO SURGERY [id number] Square Mesh Surgical Prolene Polypropylene SPM3XL Model/Cat number: [id number] Serial number: N/A Dry Molder: [employer] Surgery Lot number: [id number] Size: 50cm x 50cm Device identifier: [id number] Device identifier type: GS1 As of 04/13/2021 Status: Implanted Type Not Specified Ar[employer]rex Inc Set Implant Arthrex Fibertak Biceps Sterile Latex Free Ar-3670 - [id number] - Implanted(Left) Shoulder Inventory item: [employer] System Biceps Hinckley Slotted Drill Guide 1.9mm Drill Fibertak AR-3670 Model/Cat number: [id number] Dry Molder: [employer] Lot number: [id number] As of 02/09/2022 Status: Implanted Ar[employer]rex Inc Corkscrew Suturetape 5.5mm 14.7mm Bioabsorbable Full Thread 1.3mm [id number] - [id number] - Implanted (Left) Humerus Inventory item: [employer] Corkscrew Suturetape 5.5mm 14.7mm Bioabsorbable Full Thread 1.3mm [id number] Model/Cat number: [id number] Dry Molder: [employer] Lot number: [id number] As of 02/09/2022 Status: Implanted [employer] Inc Swivelock C 4.75mm 19.1mm Closed Eyelet Vent Hinckley Suture Ar- 2324bcc - [id number] - Implanted Inventory item: [employer] Swivelock C 4.75mm 19.1mm Closed Eyelet Vent Hinckley Suture [id number] Model/Cat number: [id number] Dry Molder: [employer] Lot number: [id number] As of 02/09/2022 Status: Implanted [employer] Swivelock C 4.75mm 19.1mm Closed Eyelet Vent Hinckley Suture Ar- 2324bcc - [id number] - Implanted Shoulder Inventory item: [employer] Swivelock C 4.75mm 19.1mm Closed Eyelet Vent Hinckley Suture [id number] Model/Cat number: [id number] Dry Molder: [employer] Lot number: [id number] As of 02/09/2022 Status: Implanted SKIN Piercings Remaining: No Wound (LDAs) Type of Wound (LDA): (none) SCREENINGS Miguel Angel index score: 100 NUTRITION PATIENT CARE PLANNING Advance Directives (For Healthcare) Have you reviewed your Advance Directive and is it valid for this stay?: Not applicable Advance Directive: Patient does not have advance directive, Patient would like information, Information provided Information Provided on Healthcare Directives: Yes Communication/Business Rules Analyst Needs Communication Needs: Glasses Does caregiver's language differ from patient's?: No Assistive Devices/DME: Eyeglasses Discharge Planning Type of Residence: Private residence Living Arrangements: Spouse/significant other Support Systems: Spouse/significant other Assistance Needed: Spouse to provide discharge transportation Patient expects to be discharged to:: Private residence PRE WAVE ASSEMBLER NO ADDITIONAL COMMENTS/ FOLLOW UP ICAL PROCESS EQUIPMENT OPERATOR * Pre-Procedure Instructions - Carlos A Xavier RN - 12/22/2022 2:11 PM CHEMICAL PROCESS EQUIPMENT OPERATOR CENTER FOR PREOPERATIVE ASSESSMENT AND PLANNING (CPAP) PRE-SURGICAL NURSING INSTRUCTIONS Telephone Assessment General Information Discussed with Patient: Surgery location provided to patient. Arrival time and surgical time will be provided to the patient by their surgeon. You should wear clothing that is clean, loose, comfortable and easy to get in and out of on the dayof surgery. You should remove nail coverings, artificial nails and nail turkmen prior to the day of surgery. You should leave your valuables and any jewelry at home. No metal or piercings are allowed in the operating room. You should bring your insurance card, a photo ID (example: [employer] Consultant's License) and a method of payment for any insurance copay, deductible or copay for discharge medications. You should bring a complete, up-to-date, list of all your medications on the day of surgery, including any over the counter medications or supplements you may take. Please note on your medication list, the last date & time you took each medication. The healthcare team, on the day of surgery, will ask for this information. You should bring your Advanced Directive and/or Living Will with you on the day of surgery if you have not verified a copy is already in your Epic Chart. If you are having surgery at [facility], please arrive on the day of surgery with the name and phone number of your local 24 hour pharmacy. Due to evening discharges, your routine pharmacy may be closed. In order to obtain your prescriptions that evening, your surgeon may need to send prescriptions to this pharmacy or have you take prescriptions to this pharmacy when you are discharged. Without this information, you may not be able to obtain your prescriptions that evening. A Guide for Patients Having Surgery: Your Pathway to Excellent Care OUR GOAL IS TO PROVIDE YOU WITH EXCELLENT CARE Use this guide to learn about what you can do before, during and after surgery to help your recovery. You are the most important person on your health care team. By becoming informed and involved, you can contribute to the success of your surgery. If your surgeon's directions are different than those in this guide, talk with your nurse or surgeon to confirm the information. It is important that you understand how to take care of yourself at home after surgery. Be sure to bring this guide with you on the day of surgery and take it home with you after surgery. Write down questions for your nurse or surgeon on the last page of this booklet. Important pages to be reviewed BEFORE surgery: Page 1: QR codes for Surgery Center maps Page 3: Types of Anesthesia Page 5: Tips for the day & night before surgery Page 6: When to stop eating BEFORE surgery and examples of clear liquids Page 7-10: Preventing Infection: Chlorhexidine Gluconate (CHG) Bathing Instructions You may access A Guide for Patients Having Surgery: Your Pathway to Excellent Care by the followinglink: [email or web address] How To Prepare Your Skin For Surgery Below is the Pre-Surgical Bathing Protocol you should follow for your surgery. If your surgeon provides you different bathing instructions, please follow your surgeon's orders. 2 Day CHG Bathing Protocol (no nasal ointment) PREVENTING INFECTION (DECOLONIZATION): Decolonization is the use of a topical antiseptic soap and sometimes a nasal ointment to remove bacteria (germs) from the skin's surface. Antiseptic soap: Chlorhexidine gluconate or CHG (brand name: Hibiclens??) Before surgery, your entire body must be thoroughly cleaned. CHG helps to reduce the bacteria on your skin. You may be given one or more bottles of CHG or you may be asked to obtain from your preferred pharmacy. Be sure to ask your pharmacist if you need help finding this product. Nasal ointment: Mupirocin (brand name: Bactroban) Your surgeon may also prescribe a topical ointment that is rubbed inside each of the nostrils to reduce the bacteria in your nose. Mupirocin ointment requires a prescription. If needed, it will be prescribed by your surgeon and obtained from your preferred pharmacy. SHOWERING WITH ANTISEPTIC SOAP (CHG) What You Need For Each Shower 60 mL (?? cup) of CHG 2 clean washcloths CHG Bathing Instructions First, shampoo and rinse your hair with your own shampoo (no conditioners). Do this so the antiseptic soap isn't washed off by your shampoo. Wash face with warm water. Turn off shower and stand away from the water. Use 2 clean washcloths to apply the antiseptic soap to all areas as described below: Pour 30 mL (1/8 cup) of CHG on washcloth #1: Using washcloth- start at jawline and firmly massage the soap into the skin in a circular motion to clean neck, shoulders, chest, back, both armpits, arms, hands and abdomen. Finish with legs and feet. Pour 30 mL (1/8 cup) of CHG on washcloth #2: Using washcloth- firmly massage the soap into the skinin a circular motion to clean groin area, perineum and buttocks. (Do not use CHG on genital area.) [place]: The CHG antiseptic soap will not bubble or lather very much. If you get soap in your eyes, ears or mouth, rinse well with cool water. When finished, leave the soap on your skin for 2 minutes before rinsing. Dry off with a clean fresh towel. Wear clean clothes or pajamas to sleep in. After showering DO NOT put on deodorant, hair products or conditioners, lotions or creams, powders,Vaseline or any non-essential products. If you cannot reach the surgical site, such as the back, please have someone help you. Shaving: You may shave your face, legs and underarms during your evening shower before you apply the CHG antiseptic soap. Be careful not to cut or ruel your skin. Avoid shaving on the day of surgery. Deodorant: Patients following the 5-Day CHG protocol may apply deodorant on the days leading up to surgery, being sure, however, to avoid use on the evening before and day of surgery. All other products should be avoided for the full 5 days. 2-Day CHG Bathing Protocol The Evening Before Surgery: Take a shower with Antiseptic soap (CHG). Follow the steps for ???Showering with Antiseptic Soap (CHG)?? above. Change all linens on your bed so you are sleeping in clean fresh sheets and pillowcases. Remove nail coverings, artificial nails and nail turkmen. The Morning of Surgery: Take a shower with Antiseptic soap (CHG). Follow the steps for ???Showering with Antiseptic Soap (CHG)?? above. Put clean clothes on after you shower. Travel/Exposure Screening: Travel Screening Have you traveled outside the [place] in the last 6 months?: No Exposure Screening Have you been exposed to anyone who is sick in the last 30 days?: No Have you been exposed to or tested positive for COVID-19 within the last 10 days?: No Infectious Disease Screening Are you having any of the following:: None As of 12/01/2021 any COVID TESTING required for surgery will be set up by your surgeon's office. Please reach out to your surgeon's office if you develop any COVID symptoms, test positive for COVID or are exposed to a COVID positive person. If you have questions, please call the CPAP Staff at [phone], Tuesday-Tuesday 8am-4:30pm. All patients should read the below section: COVID 19 Updates & Visitor Policy: Please access [email or web address] for the most updated information. Information on [facility]: Please view [email or web address] (Patient & Visitor Information) for additional details regarding Advanced Directive forms, AWARE, directions, parking information, lodging, Internet access, dining and more. Information on [facility] or [facility] ([facility]): Please view [email or web address] (Patient and Visitor Information) for parking/directions and more. For [employer] information, to activate account or password recovery, please go to [email or web address] or call [phone] (toll-free: [phone]), Tue- Tuesday 8am-5pm. Information for Suicide Prevention: National Suicide Prevention Lifeline (2-301- 046-OFSW (6406)). Surgery Times: For patients having [facility], if your surgeon's office has not notified you of your surgery time by NOON THE BUSINESS DAY BEFORE your surgery, please call the surgery center [phone]. ICAL PROCESS EQUIPMENT OPERATOR documented in this encounter Plan of Treatment Not on file documented as of this encounter Procedures Procedure Name Priority Date/Time Associated Diagnosis Comments ARTHROSCOPY SHOULDER 01/13/2023 10:24 AM CHEMICAL PROCESS EQUIPMENT OPERATOR Tear of right rotator cuff, unspecified tear extent, unspecified whether traumatic Special Needs h/o watery eyes - Pt. developed eye irritation after his shoulder surgery @ [facility] 02/2022 & was discharged with Erythromycin Ointment but had no obvious corneal abrasions - per anesthesia record/pt./TM/srr TENODESIS - BICEPS 01/13/2023 10:24 AM CHEMICAL PROCESS EQUIPMENT OPERATOR Tear of right rotator cuff, unspecified tear extent, unspecified whether traumatic Special Needs h/o watery eyes - Pt. developed eye irritation after his shoulder surgery @ [facility] 02/2022 & was discharged with Erythromycin Ointment but had no obvious corneal abrasions - per anesthesia record/pt./TM/srr ARTHROSCOPY SHOULDER ROTATOR CUFF REPAIR 01/13/2023 10:24 AM CHEMICAL PROCESS EQUIPMENT OPERATOR Tear of right rotator cuff, unspecified tear extent, unspecified whether traumatic Special Needs h/o watery eyes - Pt. developed eye irritation after his shoulder surgery @ [facility] 02/2022 & was discharged with Erythromycin Ointment but had no obvious corneal abrasions - per anesthesia record/pt./TM/srr ARTHROSCOPY SHOULDER SUBACROMIAL DECOMPRESSION 01/13/2023 10:24 AM CHEMICAL PROCESS EQUIPMENT OPERATOR Tear of right rotator cuff, unspecified tear extent, unspecified whether traumatic Special Needs h/o watery eyes - Pt. developed eye irritation after his shoulder surgery @ [facility] 02/2022 & was discharged with Erythromycin Ointment but had no obvious corneal abrasions - per anesthesia record/pt./TM/srr POCT PREOP SCREEN ([id number]- [facility]-HCT) Routine 01/13/2023 10:00 AM CHEMICAL PROCESS EQUIPMENT OPERATOR documented in this encounter Results * POCT Preop screen ([id number]-Hct) (01/13/2023 10:00 AM CHEMICAL PROCESS EQUIPMENT OPERATOR) [facility] K POC 3.8 3.3 - 4.9 mmol/L HANNAH MOURA Comment: Interpretive Data This method is not able to assess for hemolysis, which may falsely increase potassium concentrations. If further testing is needed to evaluate this result, consider in-laboratory plasma potassium. Current Interpretive Data was last revised on 2021. Blood 01/13/2023 10:0 0 AM CHEMICAL PROCESS EQUIPMENT OPERATOR 01/13/2023 10:00 AM CHEMICAL PROCESS EQUIPMENT OPERATOR us Shaan Samaniego MD LAB POCT ORDERABL ES - DEVICE Final Result [facility] Department [place] [address] documented in this encounter Visit Diagnoses Diagnosis Tear of right rotator cuff- Primary Complete tear of right rotator cuff, unspecified whether traumatic Tear of right rotator cuff, unspecified tear extent, unspecified whether traumatic documented in this encounter Admitting Diagnoses Diagnosis Tear of right rotator cuff documented in this encounter Administered Medications Inactive Administered Medications - up to 3 most recent administrations Medication Order MAR Action Action Date Dose Rate Site BUPivacaine preservative free 1,000 mg/500 mL (0.2%) infusion (premix) Continuous Rate: 6 mL/hr, Patient Bolus Dose: 4 mL, Lockout Interval: 30 Minutes, Catheter Site: Interscalene, Catheter Side: Right, perineural, Continuous, Starting on Roxy 01/13/23 at 1245, Until Roxy 01/13/23 at 1730, 500 mL, Indications: Pain Treatment Adjunct, RoutineIndications:Pain Treatment Adjunct New Bag 01/13/2023 12:53 PM CHEMICAL PROCESS EQUIPMENT OPERATOR 6 mL/hr 6 mL/hr Right Neck Lactated Ringer's (LR) infusion 30 mL/hr, intravenous, Continuous, Starting on Roxy 01/13/23 at 0915, Pre-Op, Use a 500 ml bag for End Stage Renal Disease Patients Rate/Dose Verify 01/13/2023 10:21 AM CHEMICAL PROCESS EQUIPMENT OPERATOR New Bag 01/13/2023 10:19 AM CHEMICAL PROCESS EQUIPMENT OPERATOR Lactated Ringer's (LR) irrigation As needed, Starting on Roxy 01/13/23 at 1146, Intra-Op Given 01/13/2023 11:46 AM CHEMICAL PROCESS EQUIPMENT OPERATOR 9,000 mL lidocaine-EPINEPHrine (XYLOCAINE with EPI) 1 %-1:200,000 preservative free injection As needed, Starting on Roxy 01/13/23 at 1145, Intra-Op, Indications: Administration of Local AnesthesiaIndications:Administrat ion of Local Anesthesia Given 01/13/2023 11:45 AM CHEMICAL PROCESS EQUIPMENT OPERATOR 28 mL Surgical Site triamcinolone (KENALOG) 40 mg/mL injection As needed, Starting on Roxy 01/13/23 at 1146, Intra-Op Given 01/13/2023 11:46 AM CHEMICAL PROCESS EQUIPMENT OPERATOR 40 mg Surgical Site documented in this encounter Discontinued Medications Medication Sig Discontinue Reason Start Date End Da te BD Luer-Yoan Syringe 3 mL 23 x 1 syringe USE 1 SYRINGE WITH NEEDLE EVERY 2 WEEKS TO INJECT TESTOSTERONE Therapy completed 05/27/2022 12/22/2022 UNABLE TO FIND Take 1 each by mouth every morning Chewable magnesium Therapy completed 12/22/2022 vitamin b complex tabletIndications:Vi tamin Deficiency Prevention Take 1 tablet by mouth nightly Therapy completed 12/22/2022 inFLIXimab (REMICADE) 100 mg injectionIndications :Crohn's Disease Infuse 120 mL (1,200 mg total) into a venous catheter every 4 (four) weeks Infused at: [facility] 5C Frequency change as of 06/30/21 r/t low IFX drug level from 06/07/21. Stop Taking at Discharge 01/12/2021 01/13/2023 documented as of this encounter Historical Medications * This list may reflect changes made after this encounter. cyanocobalamin (Vitamin B-12) 1,000 mcg tabletIndication s:Prevention of Vitamin B12 Deficiency Take 1 tablet (1,000 mcg total) by mouth daily before breakfast coenzyme Q10 200 mg capsuleIndicatio ns:health Take 1 capsule (200 mg total) by mouth 2 (two) times a day alpha lipoic acid 600 mg capsuleIndicatio ns:health Take 1 capsule (600 mg total) by mouth daily before breakfast magnesium gluconate 200 mg tabletIndication s:hypomagnesemia Take 1 tablet (200 mg total) by mouth daily before breakfast added in this encounter Active and Recently Administered Medications Times are shown in CHEMICAL PROCESS EQUIPMENT OPERATOR. Scheduled Medication Order 01/11/2023 01/12/2023 01/13/2023 acetaminophen (TYLENOL) tablet 1,000 mg 1,000 mg, oral, Once, On Roxy 01/13/23 at 0915, For 1 dose, Pre-Op, Indications: Pain 0915 (Due) ceFAZolin (ANCEF) 2,000 mg/50 mL in dextrose (premix) 2,000 mg (COMPLETED) 2,000 mg, intravenous, at 100 mL/hr, Administer over 30 Minutes, Once, On Roxy 01/13/23 at 0915, For 1 dose, Pre-Op, Administer within 60 minutes of incision. Duplex bag - activate before hanging., Indications: Prophylaxis, Surgical 1034 (Given - Provid er: Luke Starks, SATELLITE INSTALLATION TECHNICIAN) Lactated Ringer's (LR) bolus 1,000 mL 1,000 mL, intravenous, Once, On Roxy 01/13/23 at 0915, For 1 dose, Pre-Op 0915 (Due) scopolamine patch 72 hour 1 patch 1 patch, transdermal, Administer over 72 Hours, Once, On Roxy 01/13/23 at 0915, For 1 dose, Pre-Op, Apply to beach-chair position shoulder surgery patients, and to patients with a history of PONV and/or Motion Sickness. Do NOT administer to patients with a history of BPH or Glaucoma. Consult Anesthesiologist with any questions. In case of urinary retention, remove patch immediately and clean patch site with alcohol., Indications: Motion Sickness, Prevention of Motion Sickness, Prevention of Post-Operative Nausea and Vomiting 0915 (Due) tranexamic acid (CYKLOKAPRON) 1,000 mg/100 mL (10 mg/mL) in sodium chloride (premix) 1,000 mg 1,000 mg, intravenous, at 400 mL/hr, Administer over 15 Minutes, Once, On Roxy 01/13/23 at 0915, For 1 dose, Intra-Op, INTRA-OP Infuse over 10 minutes prior to skin incision., Indications: Prophylaxis, Surgical 0915 (Due) Continuous Medication Order 01/11/2023 01/12/2023 01/13/2023 BUPivacaine preservative free 1,000 mg/500 mL (0.2%) infusion (premix) Continuous Rate: 6 mL/hr, Patient Bolus Dose: 4 mL, Lockout Interval: 30 Minutes, Catheter Site: Interscalene, Catheter Side: Right, perineural, Continuous, Starting on Roxy 01/13/23 at 1245, Until Roxy 01/13/23 at 1730, 500 mL, Indications: Pain Treatment Adjunct, Routine 1253 (New Bag - Prov ider: Rossy Boothe RN - Comment: negative aspirate, clamp opened)1314 (Continued after Discharge - Provider: Rossy Boothe RN) Lactated Ringer's (LR) infusion 30 mL/hr, intravenous, Continuous, Starting on Roxy 01/13/23 at 0915, Pre-Op, Use a 500 ml bag for End Stage Renal Disease Patients 1019 (New Bag - Prov ider: Luke Starks CRNA - Comment: started by preop)1021 (Rate/Dose Verify - Provider: Luke Starks CRNA)1150 (Anesthesia Volume Adjustment - Provider: Luke Starks CRNA)1208 (Stopped - Provider: Rossy Boothe RN) Lactated Ringer's (LR) infusion 125 mL/hr, intravenous, Continuous, Starting on Roxy 01/13/23 at 1245, Phase I 1209 (Continued from OR - Provider: Rossy Boothe RN)1314 (Stopped - Provider: Rossy Boothe RN) PRN Medication Order 01/11/2023 01/12/2023 01/13/2023 diphenhydrAMINE (BENADRYL) 50 mg/mL injection 12.5 mg 12.5 mg, intravenous, Administer over 1 Minutes, Every 5 min PRN, itching, other, For Nausea, administer 25 mg IV., Starting on Roxy 01/13/23 at 1202, For 4 doses, Phase I, Max cumulative dose 50 mg., Indications: Itching fentaNYL (SUBLIMAZE) preservative free syringe 25 mcg 25 mcg, intravenous, Every 10 min PRN, 1st line for pain, Starting on Roxy 12/08/29 at 1202, For 4 doses, Phase I, Notify anesthesiologist if total PACU dose reaches 100 mcg AND pain score 5/10 or more. When patient able to tolerate PO, proceed to 2nd line analgesic agent for pain management., Indications: Pain hydrALAZINE (APRESOLINE) injection 5 mg 5 mg, intravenous, Administer over 2 Minutes, Every 5 min PRN, high blood pressure, Starting on Roxy 12/08/29 at 1202, Phase I, Max cumulative dose 20 mg. Dose if systolic BP greater than 180 AND heart rate less than 70., Indications: hypertension HYDROcodone-acetaminophen (NORCO) 5-325 mg per tablet 1 tablet 1 tablet, oral, Every 30 min PRN, 2nd line for pain, Starting on Roxy 12//23 at 1202, For 2 doses, Phase I, Indications: Pain labetaloL (NORMODYNE,TRANDATE) injection 5 mg 5 mg, intravenous, Every 5 min PRN, high blood pressure, Starting on Roxy 12/08/29 at 1202, For 4 doses, Phase I, Max cumulative dose 20 mg. Dose if systolic blood pressure greater than 180 AND HR greater than 70. Lactated Ringer's (LR) irrigation (CANCELED) As needed, Starting on Roxy 12/08/29 at 1146, Intra-Op 1146 (Given - Provid er: Shaan Samaniego MD) lidocaine PF (XYLOCAINE) 10 mg/mL (1 %) preservative free injection 2-10 mg 2-10 mg (0.2-1 mL), subcutaneous, Once as needed, pain with IV placement, Starting on Roxy 12/08/29 at 0833, For 1 dose, Pre-Op, Administer volume needed to infiltrate IV site. 0904 (Due) lidocaine-EPINEPHrine (XYLOCAINE with EPI) 1 %-1:200,000 preservative free injection (CANCELED) As needed, Starting on Roxy 12/23 at 1145, Intra-Op, Indications: Administration of Local Anesthesia 1145 (Given - Provid er: Shaan Samaniego MD) meperidine (DEMEROL) preservative free injection 12.5 mg 12.5 mg, intravenous, Administer over 5 Minutes, Every 10 min PRN, shivering, Starting on Roxy 01/13/23 at 1202, For 2 doses, Phase I, Max cumulative dose 25 mg., Indications: Shivering naloxone (NARCAN) 0.4 mg/mL injection 0.04-0.4 mg 0.04-0.4 mg, intravenous, Once as needed, other, excessive sedation/respiratory depression, Starting on Roxy 01/13/23 at 1202, For 1 dose, Phase I, Dilute 0.4 mg with 9 mL NS (final concentration 0.04 mg/mL). For respiratory depression (respiratory rate less than 6), administer 0.4 mg IVP over 30 seconds. For excessive sedation administer 0.04 mg (1 mL) every 1 minute until desired level of alertness. Consult with Anesthesiologist before administration. Administer 40 mics at a time. For IV, administer over 30 seconds., Indications: Opioid Toxicity ondansetron (ZOFRAN) injection 4 mg 4 mg, intravenous, Administer over 2 Minutes, Once as needed, nausea, vomiting, Starting on Roxy 01/13/23 at 1202, For 1 dose, Phase I, Proceed to prochlorperazine if ondansetron has been given within the last 6 hours. prochlorperazine (COMPAZINE) injection 5 mg 5 mg, intravenous, Administer over 2 Minutes, Once as needed, nausea, vomiting, May give second 5 mg dose if nausea not improved after 15 minutes., Starting on Roxy 01/13/23 at 1202, For 2 doses, Phase I, If nausea/vomiting not relieved by ondansetron within 30 minutes or if ondansetron has been given within the last 6 hours. sodium chloride 0.9% flush 0.5-20 mL 0.5-20 mL, intra-catheter, As needed, line care, Flush [facility] Block Hep Locks to keep vein open., Starting on Roxy 01/13/23 at 0833, Pre-Op, Flush volume based on line type and size. Flush before and after each use. , Indications: Flushing triamcinolone (KENALOG) 40 mg/mL injection (CANCELED) As needed, Starting on Roxy 01/13/23 at 1146, Intra-Op 1146 (Given - Provid er: Shaan Samaniego MD) documented in this encounter Orders Medications Ordered That Po ht Not Have Been Administered Count Last Ordered Date First Ordered Date acetaminophen (TYLENOL) tablet 1,000 mg 1 1 03/16/2022 ceFAZolin (ANCEF) 2,000 mg/5 0 mL in dextrose (premix) 2,000 mg 1 01/13/2023 diphenhydrAMINE (BENADRYL) 5 0 mg/mL injection 12.5 mg 1 01/13/2023 fentaNYL (SUBLIMAZE) preserv ative free syringe 25 mcg 1 01/13/2023 hydrALAZINE (APRESOLINE) injection 5 mg 1 1 03/16/2022 HYDROcodone-acetaminophen (N ORCO) 5-325 mg per tablet 1 tablet 1 01/13/2023 labetaloL (NORMODYNE,TRANDAT E) injection 5 mg 1 01/13/2023 Lactated Ringer's (LR) bolus 1,000 mL 1 08/2022 Lactated Ringer's (LR) infusion 2 lidocaine PF (XYLOCAINE) 10 mg/mL (1 %) preservative free injection 2-10 mg 1 01/13/2023 meperidine (DEMEROL) preserv ative free injection 12.5 mg 1 01/13/2023 naloxone (NARCAN) 0.4 mg/mL injection 0.04-0.4 mg 1 01/13/2023 ondansetron (ZOFRAN) injection 4 mg 1 01/13 prochlorperazine (COMPAZINE) injection 5 mg 1 01/13/2023 scopolamine patch 72 hour 1 patch 1 023 sodium chloride 0.9% flush 0.5-20 mL 1 08/2022 tranexamic acid (CYKLOKAPRON ) 1,000 mg/100 mL (10 mg/mL) in sodium chloride (premix) 1,000 mg 1 01/13/2023 Discharge Count Last Ordered Date First Orde red Date DISCHARGE PATIENT 1 01/13/2023 documented in this encounter Care Teams Food Production Associate Relationship Specialty Start Date End Date Mike Mitchell MD PCP - General Family Practice 01/16/21 documented as of this encounter
--- OUTSIDE RECORDS SUMMARY | 2024-01-30 08:13 | XMS_ITS | Encounter Summary ---
Author Organization [facility] Address [address] [place] [address] Phone Care Team Providers Care Retail Account Manager Name Role Phone Mike Mitchell MD Primary Care Provider [phone] Reason for Referral * Consultation (Routine) - Pending Review Specialty Diagnoses / Procedures Referred By Roberto moura Referred To Contact Physical Therapy Diagnoses Right shoulder pain, unspecified chronicity S/P shoulder surgery Nontraumatic incomplete tear of right rotator cuff Shaan Samaniego MD [address] [facility] [place] [address] Phone: tel: fax: External Order Referral ID Status Reason Start Date Expiration Date Visits Requested Visits Authorized [id number] Pending Review Evaluate and Treat 03/04/2023 04/02/2024 24 24 Question Answer PTRFR PT Evaluate and Treat Therapy options discussed with patient? Yes Location provided for therapy services is: Patient requested/Patient preferred Please select the performing region: External Order [171] # of visits: 24 Comments [facility] Gibson Samaniego MD Shoulder and Elbow Service Date: 03/04/23 Patient Name: Kris Spence : 1960 Diagnosis: s/p right SAD with acromioplasty, open biceps tenodesis, glenohumeral debridement Surgery Date: 01/13/2023 Procedure: ARTHROSCOPY SHOULDER SUBACROMIAL DECOMPRESSION (Right) Right open TENODESIS - BICEPS (Right) - Right, Right possible ARTHROSCOPY SHOULDER ROTATOR CUFF REPAIR - Right, Right possible open TENODESIS - BICEPS - Right, and Right possible Nuris InSpace balloon placement - Right PHYSICAL THERAPY REFERRAL: Therapy Instructions: Periscapular strengthening, glenohumeral ROM, rotator cuff strengthening Frequency & Duration: 1-2 days/week X 6 weeks. Shaan Samaniego MD ATTENTION THERAPY PROVIDER- Please be sure to include the Patient's Name & Date of on All Correspondence with our office- For all PT reports that require a signature-please fax to [phone] For all other PT progress notes-please fax to [phone] SCHEDULING PHYSICAL THERAPY APPOINTMENTS: THIS IS YOUR THERAPY ORDER. BE SURE AND TAKE THIS WITH YOU TO YOUR THERAPY APPOINTMENT AND GIVE TO YOUR THERAPIST. WITHOUT THIS PAPER THE THERAPIST WILL NOT BE ABLE TO START YOUR THERAPY PROGRAM. Your Physical Therapy Provider may complete the pre-certification process on your behalf. If you need assistance from the Orthopedic Pre-Certifiction office, please call [phone] and a team lead will assist you. Workman's compensation patients: you must contact your field case manager regarding where you are to go for your physical therapy. EYOR MECHANIC Reason for Visit * Reason Comments Follow-up Encounter Details Date Type Department Care Team (Late st Contact Info) Description 03/04/2023 9:30 AM CONVEYOR MECHANIC Office Visit [facility] [id number] [place] [address] [address] [place] [address] Shaan Samaniego MD [address] [place] [address] Right shoulder pain, unspecified chronicity (Primary Dx); S/P shoulder surgery; Nontraumatic incomplete tear of [...] on file Legal Sex Male 8:42 AM CONVEYOR MECHANIC Gender Identity Not on file Sexual Orientation Straight 04/01/2020 8: 42 PM CONVEYOR MECHANIC documented as of this encounter Progress Notes * Shaan Samaniego MD - 03/04/2023 9:30 AM CST POST OP VISIT INTERIM HISTORY Date of Surgery: 02/08/2023 Procedure: Right subacromial decompression with acromioplasty, glenohumeral debridement, open biceps tenodesis Krislaurel Spence returns for routine postoperative follow-up after surgery. Pain has been well-controlled. Very happy with his progress PHYSICAL EXAMINATION No acute distress, alert and oriented X 3. Incision healing is noted with no sign of infection. Canforward elevate to 170??, externally rotate to 60??. He is some mild weakness in Cosmo's position without pain. He can internally rotate to the mid lumbar spine. Distal motor and sensory function is normal. REVIEW OF X-RAYS/STUDIES No new studies IMPRESSION/DIAGNOSIS Doing well in early postoperative manage TREATMENT/PLAN We will continue with routine postoperative rehabilitation. We are going to progress his physical therapy. He is doing very well. I am happy with his progress. We reviewed precautions and they voicedunderstanding. All questions were answered today. FOLLOW UP Six weeks Shaan Samaniego MD Customer Consulting Manager of Orthopedic Surgery Shoulder and Elbow Service [facility] Dr. Gibson Samaniego dictating using Fluency Direct. Rn Bone Marrow Transplant variances may occur. EYOR MECHANIC documented in this encounter Plan of Treatment Scheduled Referrals Name Type Priority Associated Diagnoses Orde r Schedule Ambulatory referral order to Physical Therapy - Outpatient Referral Routine Right shoulder pain, unspecified chronicity S/P shoulder surgery Nontraumatic incomplete tear of right rotator cuff Expected: 03/18/2023 (Approximate), Expires: 03/04/2024 documented as of this encounter Visit Diagnoses Diagnosis Right shoulder pain, unspecified chronicity- Primary S/P shoulder surgery Other postprocedural status Nontraumatic incomplete tear of right rotator cuff documented in this encounter Care Teams Retail Account Manager Relationship Specialty Start Date End Date Mike Mitchell MD PCP - General Family Practice 01/16/21 documented as of this encounter
--- OUTSIDE RECORDS SUMMARY | 2024-01-30 08:13 | XMS_ITS | Encounter Summary ---
Author Organization [facility] Address [address] [place] [address] Phone Care Team Providers Care Dock Builder Name Role Phone Mike Mitchell MD Primary Care Provider [phone] Encounter Details Date Type Department Care Team (Late st Contact Info) Description 01/03/2023 Documentation [facility] Orthopaedic Surgery [address] [facility] Medical Office Building [address] [phone] Shaan Samaniego MD [address] [facility] [place] [address] Social History Tobacco Use Types Packs/Day Years [...] more drinks on one occasion? Never 12/22/2022 Sex and Gender Information Value Date Recorded Sex Assigned at Not on file Legal Sex Male 8:42 AM GEOTECHNICAL INTERN Gender Identity Not on file Sexual Orientation Straight 04/01/2020 8: 42 PM GEOTECHNICAL INTERN documented as of this encounter Progress Notes * Shaan Samaniego MD - 01/03/2023 5:22 PM CST Called the patient to discuss her upcoming surgery. Use of Nuris in space balloon has been denied. We [...] to proceed with the surgery as scheduled. ECHNICAL INTERN documented in this encounter Plan of Treatment Not on file documented as of this encounter Visit Diagnoses Not on filedocumented in this encounter Care Teams Dock Builder Relationship Specialty Start Date End Date Mike Mitchell MD PCP - General Family Practice 01/16/21 documented as of this encounter
--- OUTSIDE RECORDS SUMMARY | 2024-01-30 08:13 | XMS_ITS | Encounter Summary ---
Author Organization [facility] Address [address] [place] [address] Phone Care Team Providers Care Health Insurance Agent Name Role Phone Mike Mitchell MD Primary Care Provider [phone] Encounter Details Date Type Department Care Team (Late st Contact Info) Description 06/23/2022 Telephone [facility] Surgery [address] [place] [address] Medical Office Building [address] [place] [address] Hina Erazo Social History Tobacco Use Types Packs/Day Years [...] on file Legal Sex Male 8:42 AM RESEARCH COMPUTING SPECIALIST Gender Identity Not on file Sexual Orientation Straight 04/01/2020 8 :42 PM RESEARCH COMPUTING SPECIALIST documented as of this encounter Miscellaneous Notes * Telephone Encounter - Hina Erazo - 06/23/2022 1:58 PM CDT Phoned pt, orthotics covered at 80%. Patient made scanning appt 07/15/22 at 10:00am documented in this encounter Plan of Treatment Not on file documented as of this encounter Visit Diagnoses Not on filedocumented in this encounter Care Teams Health Insurance Agent Relationship Specialty Start Date End Date Mike Mitchell MD PCP - General Family Practice 01/16/21 documented as of this encounter
--- OUTSIDE RECORDS SUMMARY | 2024-01-30 08:13 | XMS_ITS | Encounter Summary ---
Author Organization [facility] Address [address] [place] [address] Phone Care Team Providers Care Timers Inspector Name Role Phone Mike Mitchell MD Primary Care Provider [phone] Encounter Details Date Type Department Care Team (Late st Contact Info) Description 07/28/2022 Telephone [facility] Surgery [address] [place] [address] Medical Office Building [address] [place] [id number] Shea Arreguin RMA Social History Tobacco Use Types Packs/Day Years [...] on file 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 documented in this encounter Plan of Treatment Not on file documented as of this encounter Visit Diagnoses Not on filedocumented in this encounter Care Teams Timers Inspector Relationship Specialty Start Date End Date Mike Mitchell MD PCP - General Family Practice 01/16/21 documented as of this encounter
--- OUTSIDE RECORDS SUMMARY | 2024-01-30 08:13 | XMS_ITS | Encounter Summary ---
Author Organization [facility] Address [address] [place] [address] Phone Care Team Providers Care Paraprofessional Aide Teacher Name Role Phone Mike Mitchell MD Primary Care Provider [phone] Reason for Visit * Reason Onset Date Comments Transition of IBD care to outside facility/[facility] 11/25/2022 Encounter Details Date Type Department Care Team (Late st Contact Info) Description 11/25/2022 Documentation [facility] Gastroenterology [address] [facility] 12th [place] [address] [place] [address] Lety Corral LPN Transition of IBD care to outside facility/[facility] Social History Tobacco Use Types Packs/Day Years [...] on file 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 Prabhjot Ryder with [facility] (IOV 10/26/2022) and will not be establishing care with a new IBD provider at [facility] after the departure of his former IBD provider, Dr. Julia Moreno. Pt is already scheduled to receive his next Remicade infusion at [facility] infusion center tomorrow, 11/26/2022. Remicade therapy plan for [facility] 5C which was previously ordered by Dr. Moreno has been discontinued. documented in this encounter Plan of Treatment Not on file documented as of this encounter Visit Diagnoses Not on filedocumented in this encounter Care Teams Paraprofessional Aide Teacher Relationship Specialty Start Date End Date Mike Mitchell MD PCP - General Family Practice 01/16/21 documented as of this encounter
--- OUTSIDE RECORDS SUMMARY | 2024-01-30 08:13 | XMS_ITS | Encounter Summary ---
Author Organization [facility] Healthcare Address [address] [place] [address] Care Team Providers Care Display Card Writer Name Role Phone Mike Mitchell MD Primary Care Provider [phone] Reason for Visit * Auth/Cert (Routine) Specialty Diagnoses / Procedures Referred By Contac t Referred To Contact Diagnoses Tear of right rotator cuff, unspecified tear extent, unspecified whether traumatic Tear of right rotator cuff, unspecified tear extent, unspecified whether traumatic [M75.101] Procedures KS SURGICAL ARTHROSCOPY JASON W/CORACOACRM LIGM RLS ARTHROSCOPY SHOULDER SUBACROMIAL DECOMPRESSION Right possible ARTHROSCOPY SHOULDER ROTATOR CUFF REPAIR Right possible open TENODESIS - BICEPS Right possible Pierson InSpace balloon placement Referral ID Status Reason Start Date Expiration Date Visits Re quested Visits Authorized [id number] 1 1 Encounter Details Date Type Department Care Team (Latest Contact Info) Description 01/13/2023 8:25 AM POWER SHOVEL OPERATOR HELPER - 01/13/2023 1:30 PM POWER SHOVEL OPERATOR HELPER Hospital Encounter [facility] [address] [place] [phone] Shaan Samaniego MD [address] [facility] [address] [place] [address] Complete tear of right rotator cuff, unspecified whether traumatic (Primary Dx) Discharge Disposition: Discharge to home or self care Social History Tobacco Use Types Packs/Day Years [...] on file Legal Sex Male 8:42 AM POWER SHOVEL OPERATOR HELPER Gender Identity Not on file Sexual Orientation Straight 04/01/2020 8: 42 PM POWER SHOVEL OPERATOR HELPER documented as of this encounter Last Filed Vital Signs Vital Sign Reading Time Taken Comments Blood Pressure 130/83 01/13/2023 1:05 PM POWER SHOVEL OPERATOR HELPER Pulse 68 01/13/2023 1:10 PM POWER SHOVEL OPERATOR HELPER Temperature 36.4 ??C (97.5 ??F) 01/13/2023 12:[address] Respiratory Rate 17 01/13/2023 1:10 PM POWER SHOVEL OPERATOR HELPER Oxygen Saturation 95% 01/13/2023 1:10 PM POWER SHOVEL OPERATOR HELPER Inhaled Oxygen Concentration - - Weight 116 kg (255 lb 12.8 oz) 01/13/2023 8:52 A M POWER SHOVEL OPERATOR HELPER Height 182.9 cm (6') 01/13/2023 8:52 AM POWER SHOVEL OPERATOR HELPER Body Mass Index 34.69 01/13/2023 8:52 AM POWER SHOVEL OPERATOR HELPER documented in this encounter Discharge Instructions * Discharge Instructions* Shaan Samaniego MD - 01/13/2023 10:04 AM POWER SHOVEL OPERATOR HELPER [facility] Department of Orthopaedic Surgery Shaan Samaniego M.D. Office [address] [facility]. [place] [address] [place] [phone] Shoulder Surgery (Outpatient) Postoperative Instructions Medications Take 1-2 tablets of oxycodone every 4-6 hours as needed for pain. Try to taper the use of your narcotic pills as soon as you feel comfortable. You may take Extra Strength Tylenol or Tylenol only in place of the pain pills. Do not take additional Tylenol if you are taking Percocet, [place], or Vicodin. You have been given a [...] last longer than 5 days following surgery. 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 Ivy Barajas NP R SHOVEL OPERATOR HELPER documented in this encounter H&P Notes * [...] BICEPS Right possible Nuris InSpace balloon placement R SHOVEL OPERATOR HELPER Source Note - Shaan Samaniego MD - 01/03/2023 5:22 PM POWER SHOVEL OPERATOR HELPER Called the patient to discuss her upcoming [...] to proceed with the surgery as scheduled. R SHOVEL OPERATOR HELPER * Bina Cotton NP - 01/13/2023 8:26 [...] open TENODESIS - BICEPS (R), Right possible Pierson InSpace balloon placement (R) HPI: Patient is [...] mouth daily before breakfast Morethan a month ylgbsqbxqnou-otrxdvqw-huyijb tablet Take 1 tablet by mouth every [...] Reactions Fruit Extracts Hives Tomatoes and oranges [place] Juice Hives [place] Oil Hives Sulfa (Sulfonamide Antibiotics) Hives and [...] Shaan Samaniego MD at 01/13/2023 10:12 AM POWER SHOVEL OPERATOR HELPER R SHOVEL OPERATOR HELPER R SHOVEL OPERATOR HELPER documented in this encounter Miscellaneous Notes * Perioperative Nursing Note - Rossy Boothe RN - 01/13/2023 12:11 PM POWER SHOVEL OPERATOR HELPER 1158 - pt admitted to pacu, report received from FINANCE AND ADMINISTRATION MANAGER and TURPENTINE DISTILLER. VSS, pt drowsy but arousable to voice. [...] to bathroom before leaving, voided without issue. R SHOVEL OPERATOR HELPER * Op Note - Shaan Samaniego MD [...] Implant Name Type Inv. Item Serial No. Ccnp Lot No. LRB No. Used Action [employer] System Biceps [place] Slotted Drill Guide 1.9mm Drill Fibertak AR- 3670 - [id number] AR[employer] System Biceps [place] Slotted Drill Guide 1.9mm Drill Fibertak AR-3670 Arthrex Inc [id number] Right 1 Implanted R SHOVEL OPERATOR HELPER * Brief Op Note - Pam Castro MD - 01/13/2023 10:51 AM CST Operative Progress Note Surgical Team: Surgeon(s) and Role: * Shaan Samaniego MD - Primary * Pam Castro MD - Resident - Assisting Anesthesiologist: Carmine Crystal MD FINANCE AND ADMINISTRATION MANAGER: Luke Starks CRNA; Isela Reeves CRNA Agriculture Extension Specialist: Neal Harris RN Scrub: Rina Maret RN Orientee Agriculture Extension Specialist: Gerson Pan RN DATE OF SURGERY : [...] open TENODESIS - BICEPS (Right) Right possible Pierson InSpace balloon placement (Right) Operative Findings: Right subacromial bursitis Biceps tendinitis Estimated Blood Loss: 25 mL Intraoperative Fluids: 800 mls Specimens: No specimen collected in procedure Implants: Implant Name Type Inv. Item Serial No. Ccnp Lot No. LRB No. Used Action [employer] System Biceps [place] Slotted Drill Guide 1.9mm Drill Fibertak AR- 3670 - [id number] [employer] System Biceps [place] Slotted Drill Guide 1.9mm Drill Fibertak AR-3670 Ar[employer]rex Inc [id number] Right 1 Implanted Blood/Blood Products Transfused: 0 mls Complications: None Condition on Discharge from the operating room was stable Pam Castro MD Date: 01/13/2023 Time: 11:55 AM TEACHING ATTESTATION : I was present and directly participated in the entire procedure (including opening and closing). Cosigned by Shaan Samaniego MD at 01/14/2023 8:45 PM POWER SHOVEL OPERATOR HELPER R SHOVEL OPERATOR HELPER R SHOVEL OPERATOR HELPER * Perioperative Nursing Note - Mayra Brambila RN - 01/13/2023 8:53 AM CST Pt's with pt and will care for pt for 24 hours post surgery. R SHOVEL OPERATOR HELPER * Pre-Procedure Instructions - Ada Vee RN - 01/12/2023 10:37 AM POWER SHOVEL OPERATOR HELPER We are pleased that you and your doctor have chosen [facility] for your surgery. We hope the following information will help make your visit a pleasant one. The name of the building is [facility] in [place]. Directions to facility (address is [address] [place] [address], [address] [facility] exit. Zip [address] When you enter the building, look directly to your left, you will see 2 glass double doors. These double doors say [address]. Go through those double doors and check in with the hr receptionist. Bring glass/case- Bring pillows, leave in car. Pt has [employer] ice machine. Wear loose-fitting clothes. Something with [...] out. Instructed to patient to refer to [facility] surgery guide page 6 for any questions regarding eating and drinking day of surgery. For medications that the Nurse Practitioner instructed you to take on the morning of surgery, take the medications with a few sips of water. Pt's. LEEANN [phone] will be with patient and care for [...] or purchase it from the refreshment area. R SHOVEL OPERATOR HELPER * Pre-Procedure Instructions - Cailin Katerin Krystal Stephen, BHAVNA - 01/05/2023 9:00 AM CST [facility] CPAP Clinic Location: [facility] CPAP The night before your surgery: * Do [...] tablet Don't take on day of surgery yorzbjmudnzv-ivdxiufl-gzrdfc tablet Don't take on day of surgery [...] with COVID-19. You test positive for COVID-19. R SHOVEL OPERATOR HELPER * Perioperative Nursing Note - Carlos A Xavier RN - 12/22/2022 2:11 PM POWER SHOVEL OPERATOR HELPER [facility] Perioperative Nursing Note Telephone Preoperative Evaluation ([facility]) - TELEPHONE ONLY, NO PHYSICAL EXAM Date: [...] mg total) by mouth daily before breakfast oukkcokmwhek-mrdxobfl-klkdkv tablet Take 1 tablet by mouth every [...] PRN Implants Mesh Ethicon Endo Surgery Spm3xl [id number] Square Mesh Surgical Prolene Polypropylene - Sn/A - [id number] - Implanted Abdomen Inventory item: ETHICON ENDO SURGERY [id number] Square Mesh Surgical Prolene Polypropylene SPM3XL Model/Cat number: [id number] Serial number: N/A Ccnp: Ethicon Endo Surgery Lot number: [id number] Size: 50cm x 50cm Device identifier: [id number] Device identifier type: GS1 As of 04/13/2021 Status: Implanted Type Not Specified Arthrex Inc Set Implant Arthrex Fibertak Biceps Sterile Latex Free Ar-3670 - [id number] - Implanted(Left) Shoulder Inventory item: [employer] System Biceps [place] Slotted Drill Guide 1.9mm Drill Fibertak AR-3670 Model/Cat number: [id number] Ccnp: Arthrex Inc Lot number: [id number] As of 02/09/2022 Status: Implanted Arthrex Inc Corkscrew Suturetape 5.5mm 14.7mm Bioabsorbable Full Thread 1.3mm Ar-1927bct - [id number] - Implanted (Left) Humerus Inventory item: [employer] INC Corkscrew Suturetape 5.5mm 14.7mm Bioabsorbable Full Thread 1.3mm [id number] Model/Cat number: [id number] Ccnp: Arthrex Inc Lot number: [id number] As of 02/09/2022 Status: Implanted Arthrex Inc Swivelock C 4.75mm 19.1mm Closed Eyelet Vent [place] Suture Ar- 2324bcc - [id number] - Implanted Inventory item: [employer] INC Swivelock C 4.75mm 19.1mm Closed Eyelet Vent [place] Suture [id number] Model/Cat number: [id number] Ccnp: Arthrex Inc Lot number: [id number] As of 02/09/2022 Status: Implanted Ar[employer]rex Inc Swivelock C 4.75mm 19.1mm Closed Eyelet Vent [place] Suture Ar- 2324bcc - [id number] - Implanted Shoulder Inventory item: [employer] INC Swivelock C 4.75mm 19.1mm Closed Eyelet Vent [place] Suture [id number] Model/Cat number: [id number] Ccnp: Arthrex Inc Lot number: [id number] As of 02/09/2022 Status: Implanted SKIN Piercings [...] provided Information Provided on Healthcare Directives: Yes Communication/Top Former Needs Communication Needs: Glasses Does caregiver's language differ from patient's?: No Assistive Devices/DME: Eyeglasses Discharge Planning Type of Residence: Private residence Living Arrangements: Spouse/significant other Support Systems: Spouse/significant other Assistance Needed: Spouse to provide discharge transportation Patient expects to be discharged to:: Private residence PRIMARY CARE MD NO ADDITIONAL COMMENTS/ FOLLOW UP R SHOVEL OPERATOR HELPER * Pre-Procedure Instructions - Carlos A Xavier RN - 12/22/2022 2:11 PM POWER SHOVEL OPERATOR HELPER [facility] (CPAP) [...] remove nail coverings, artificial nails and nail cook islander prior to the day of surgery. You should leave your valuables and any jewelry at home. No metal or piercings are allowed in the operating room. You should bring your insurance card, a photo ID (example: Public Health Sanitarian's License) and a method of payment for [...] Chart. If you are having surgery at [facility], please arrive on the day of surgery [...] Pathway to Excellent Care by the followinglink: [email or web address] How To Prepare Your Skin For Surgery [...] Remove nail coverings, artificial nails and nail cook islander. The Morning of Surgery: Take a shower [...] questions, please call the CPAP Staff at [phone], Tuesday-Tuesday 8am-4:30pm. All patients should read the below section: COVID 19 Updates & Visitor Policy: Please access [email or web address] for the most updated information. Information on [facility]: Please view [email or web address] (Patient & Visitor Information) for additional details regarding Advanced Directive forms, AWARE, directions, parking information, lodging, Internet access, dining and more. Information on [facility] or [facility] ([facility]): Please view [email or web address] (Patient and Visitor Information) for parking/directions and more. For MyChart information, to activate account or password recovery, please go to [email or web address] or call [phone] (toll-free: [phone]), Tue- Tuesday 8am-5pm. Information for Suicide Prevention: National Suicide Prevention Lifeline (8-500- 058-LBHQ (9174)). Surgery Times: For patients having surgery @ [facility], if your surgeon's office has not notified you of your surgery time by NOON THE BUSINESS DAY BEFORE your surgery, please call the surgery center [phone]. R SHOVEL OPERATOR HELPER documented in this encounter Plan of Treatment Not on file documented as of this encounter Procedures Procedure Name Priority Date/Time Associated Diagnosis Comments ARTHROSCOPY SHOULDER 01/13/2023 10:24 AM POWER SHOVEL OPERATOR HELPER Tear of right rotator cuff, unspecified tear extent, unspecified whether traumatic Special Needs h/o watery eyes - Pt. developed eye irritation after his shoulder surgery @ [facility] 02/2022 & was discharged with Erythromycin Ointment but had no obvious corneal abrasions - per anesthesia record/pt./TM/srr TENODESIS - BICEPS 01/13/2023 10:24 AM POWER SHOVEL OPERATOR HELPER Tear of right rotator cuff, unspecified tear extent, unspecified whether traumatic Special Needs h/o watery eyes - Pt. developed eye irritation after his shoulder surgery @ [facility] 02/2022 & was discharged with Erythromycin Ointment but had no obvious corneal abrasions - per anesthesia record/pt./TM/srr ARTHROSCOPY SHOULDER ROTATOR CUFF REPAIR 01/13/2023 10:24 AM POWER SHOVEL OPERATOR HELPER Tear of right rotator cuff, unspecified tear extent, unspecified whether traumatic Special Needs h/o watery eyes - Pt. developed eye irritation after his shoulder surgery @ [facility] 02/2022 & was discharged with Erythromycin Ointment but had no obvious corneal abrasions - per anesthesia record/pt./TM/srr ARTHROSCOPY SHOULDER SUBACROMIAL DECOMPRESSION 01/13/2023 10:24 AM POWER SHOVEL OPERATOR HELPER Tear of right rotator cuff, unspecified tear extent, unspecified whether traumatic Special Needs h/o watery eyes - Pt. developed eye irritation after his shoulder surgery @ [facility] 02/2022 & was discharged with Erythromycin Ointment but had no obvious corneal abrasions - per anesthesia record/pt./TM/srr POCT PREOP SCREEN (OJP-VG-ROP-BUN-CR- HBG-HCT) Routine 01/13/2023 10:00 AM POWER SHOVEL OPERATOR HELPER documented in this encounter Results * POCT Preop screen (qrhdx-Om-Usl-TTK-Wm-Ulb-Hct) (01/13/2023 10:00 AM POWER SHOVEL OPERATOR HELPER) Pathologist [facility] K POC 3.8 3.3 - 4.9 mmol/L HANNAH MOURA Comment: Interpretive Data This method is not able to assess for hemolysis, which may falsely increase potassium concentrations. If further testing is needed to evaluate this result, consider in-laboratory plasma potassium. Current Interpretive Data was last revised on 2021. Blood 01/13/2023 10:0 0 AM POWER SHOVEL OPERATOR HELPER 01/13/2023 10:00 AM POWER SHOVEL OPERATOR HELPER us Shaan Samaniego MD LAB POCT ORDERABL ES - DEVICE Final Result HANNAH Azul [facility] Department [place] [address] documented in this encounter Visit Diagnoses Diagnosis Tear of right rotator cuff- Primary Complete tear of right rotator cuff, unspecified whether traumatic documented in this encounter [...] Treatment Adjunct New Bag 01/13/2023 12:53 PM POWER SHOVEL OPERATOR HELPER 6 mL/hr 6 mL/hr Right Neck Lactated Ringer's (LR) infusion 30 mL/hr, intravenous, Continuous, Starting on Roxy 01/13/23 at 0915, Pre-Op, Use a 500 ml bag for End Stage Renal Disease Patients Rate/Dose Verify 01/13/2023 10:21 AM POWER SHOVEL OPERATOR HELPER New Bag 01/13/2023 10:19 AM POWER SHOVEL OPERATOR HELPER documented in this encounter Discontinued Medications Medication [...] Recently Administered Medications Times are shown in POWER SHOVEL OPERATOR HELPER. Scheduled Medication Order 01/11/2023 01/12/2023 01/13/2023 acetaminophen [...] 1034 (Given - Provid er: Luke Starks, JES) Lactated Ringer's (LR) bolus 1,000 mL 1,000 [...] Administer over 15 Minutes, Once, On Roxy /23 at 0915, For 1 dose, Intra-Op, INTRA-OP Infuse over 10 minutes prior to skin incision., Indications: Prophylaxis, Surgical 15 (Due) Continuous Medication Order 01/11/2023 01/12/2023 01/13/2023 [...] 30 mL/hr, intravenous, Continuous, Starting on Roxy 12/23 at 0915, Pre-Op, Use a 500 ml bag for End Stage Renal Disease Patients 1019 (New Bag - Prov ider: Luke Starks CRNA - Comment: started by preop)1021 (Rate/Dose Verify - Provider: Luke Starks CRNA)1150 (Anesthesia Volume Adjustment - Provider: Luke Starks CRNA)1208 (Stopped - Provider: Rossy Boothe RN) Lactated Ringer's (LR) infusion 125 mL/hr, intravenous, Continuous, Starting on Roxy /23 at 1245, Phase I 1209 (Continued from [...] 1st line for pain, Starting on Roxy 01/13/23 at 1202, For [...] PRN, high blood pressure, Starting on Roxy 01/13/23 at 1202, Phase I, Max cumulative dose 20 mg. Dose if systolic BP greater than 180 AND heart rate less than 70., Indications: hypertension HYDROcodone-acetaminophen (NORCO) 5-325 mg per tablet 1 tablet 1 tablet, oral, Every 30 min PRN, 2nd line for pain, Starting on Roxy 01/13/23 at 1202, For 2 doses, Phase I, Indications: Pain labetaloL (NORMODYNE,TRANDATE) injection 5 mg 5 mg, intravenous, Every 5 min PRN, high blood pressure, Starting on Roxy 01/13/23 at 1202, For 4 doses, Phase I, Max cumulative dose 20 mg. Dose if systolic blood pressure greater than 180 AND HR greater than 70. Lactated Ringer's (LR) irrigation (CANCELED) As needed, Starting on Roxy 01/13/23 at 1146, Intra-Op 1146 (Given - Provid er: Shaan Samaniego MD) lidocaine PF (XYLOCAINE) 10 mg/mL (1 %) preservative free injection 2-10 mg 2-10 mg (0.2-1 mL), subcutaneous, Once as needed, pain with IV placement, Starting on Roxy 01/13/23 at 0833, For 1 dose, Pre-Op, Administer [...] improved after 15 minutes., Starting on Roxy 1223 at 1202, For 2 doses, Phase I, If nausea/vomiting not relieved by ondansetron within 30 minutes or if ondansetron has been given within the last 6 hours. sodium chloride 0.9% flush 0.5-20 mL 0.5-20 mL, intra-catheter, As needed, line care, Flush Cali Block Hep Locks to keep vein open., [...] 1 08/2022 Lactated Ringer's (LR) infusion 2 3 Lactated Ringer's (LR) irrigation 1 023 lidocaine PF (XYLOCAINE) 10 mg/mL (1 %) preservative free injection 2-10 mg 1 01/13/2023 lidocaine-EPINEPHrine (XYLOC GERMAINE with EPI) 1 %-1:200,000 preservative free injection 1 01/13/2023 meperidine (DEMEROL) preserv ative free [...] sodium chloride (premix) 1,000 mg 1 01/13/2023 triamcinolone (KENALOG) 40 mg/mL injection 1 01/13/2023 Discharge Count Last Ordered Date First Orde red Date DISCHARGE PATIENT 1 01/13/2023 documented in this encounter Care Teams Display Card Writer Relationship Specialty Start Date End Date Mike Mitchell MD PCP - General Family Practice 01/16/21 documented as of this encounter
--- OUTSIDE RECORDS SUMMARY | 2024-01-30 08:13 | XMS_ITS | Encounter Summary ---
Author Organization [facility] Address [address] [place] [address] Phone Care Team Providers Care Registration Rep Name Role Phone Mike Mitchell MD Primary Care Provider [phone] Reason for Visit * Reason Comments Follow-up Encounter Details Date Type Department Care Team (Late st Contact Info) Description 04/11/2023 11:10 AM COLLECTION MANAGER Office Visit [facility] Orthopaedic Surgery [address] [facility] 2[address] [place] [address] Shaan Samaniego MD [address] [facility] [address] [place] [address] S/P shoulder surgery (Primary Dx) Social History Tobacco Use Types [...] on file Legal Sex Male 8:42 AM COLLECTION MANAGER Gender Identity Not on file Sexual Orientation Straight 04/01/2020 8: 42 PM COLLECTION MANAGER documented as of this encounter Progress Notes * Shaan Samaniego MD - 04/11/2023 11:10 AM CST POST OP VISIT INTERIM HISTORY Date of Surgery: 02/08/2023 Procedure: Right subacromial decompression, acromioplasty, glenohumeral debridement, open biceps tenodesis Kris Spence returns for routine postoperative follow-up after surgery. Pain has been well-controlled. He has been able to return to most activities. He does note some continued weakness with useof his arm away from his body. He has been able to return to golf without difficulty. He is very happy with his progress. PHYSICAL EXAMINATION No acute distress, alert and oriented X 3. Incision healing is noted with no sign of infection. He can forward elevate to 170??. Can externally rotate to 50??. Distal motor and sensory function is normal. REVIEW OF X-RAYS/STUDIES No new studies IMPRESSION/DIAGNOSIS Doing well in early postoperative manage TREATMENT/PLAN We will continue with routine postoperative rehabilitation. We are going to stop physical therapy as this is the only thing that is causing him pain at this time. He can return to all activities as tolerated.. We reviewed precautions and they voiced understanding. All questions were answered today. FOLLOW UP Six weeks p.r.n. Shaan Samaniego MD Lead Burner Apprentice of Orthopedic Surgery Shoulder and Elbow Service [facility] Orthopedics [facility] Dr. Gibson Samaniego dictating using Fluency Direct. Appraiser Art variances may occur. ECTION MANAGER documented in this encounter Plan of Treatment Not on file documented as of this encounter Visit Diagnoses Diagnosis S/P shoulder surgery- Primary Other postprocedural status documented in this encounter Care Teams Registration Rep Relationship Specialty Start Date End Date Mike Mitchell MD PCP - General Family Practice 01/16/21 documented as of this encounter
--- OUTSIDE RECORDS SUMMARY | 2024-01-30 08:13 | XMS_ITS | Encounter Summary ---
Author Organization [facility] Address [address] [place] [address] Phone Care Team Providers Care Edging Machine Setter Name Role Phone Mike Mitchell MD Primary Care Provider [phone] Encounter Details Date Type Department Care Team (Late st Contact Info) Description 06/03/2022 10:50 AM CDT Lab [facility] Endocrinology Metabolism and Lipid [address] [facility] 5th [place] [address] [place] [id number] Crohn's disease of ileum with complication (HCC) Social History Tobacco Use Types Packs/Day Years [...] on file Legal Sex Male 8:42 AM MANAGER QUALITY Gender Identity Not on file Sexual Orientation Straight 04/01/2020 8: 42 PM MANAGER QUALITY documented as of this encounter Plan of Treatment Not on file documented as of this encounter Visit Diagnoses Diagnosis Crohn's disease of ileum with complication (HCC) documented in this encounter Care Teams Edging Machine Setter Relationship Specialty Start Date End Date Mike Mitchell MD PCP - General Family Practice 01/16/21 documented as of this encounter
--- OUTSIDE RECORDS SUMMARY | 2024-01-30 08:13 | XMS_ITS | Encounter Summary ---
Author Organization [facility] Healthcare Address [address] [facility] [address] [place] [address] Care Team Providers Care Incinerator Attendant Name Role Phone Mike Mitchell MD Primary Care Provider [phone] Reason for Visit * Auth/Cert Specialty Diagnoses / Procedures Referred By Roberto t Referred To Contact Diagnoses Crohn's disease of small intestine with complication (HCC) Crohn's disease of small intestine with complication (HCC) [K50.019] Procedures [facility] EVAL INTSTINAL POUCH DX W/COLLJ SPEC SPX POUCHOSCOPY Referral ID Status Reason Start Date Expiration Date Visits Re quested Visits Authorized [id number] 1 1 Encounter Details Date Type Department Care Team (Late st Contact Info) Description 05/31/2022 8:30 AM CDT - 05/31/2022 9:00 AM CDT Surgery [facility] [address] [place] [address] Julia Moreno MD [facility] [address] [place] [address] POUCHOSCOPY Surgery Details Date/Time Status Location OR Service Patient Class Case Class Case Type Trauma Case? 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 Gender Identity Not on file Sexual Orientation Straight 04/01/2020 8: 42 PM DYER ASSISTANT documented as of this encounter Last Filed Vital Signs Vital Sign Reading Time Taken Comments Blood Pressure 136/80 05/31/2022 9:00 AM CDT Pulse 75 05/31/2022 9:00 AM CDT Temperature 36.5 ??C (97.7 ??F) 05/31/2022 9:00 AM CD T Respiratory Rate 19 05/31/2022 9:00 AM CDT Oxygen Saturation 98% 05/31/2022 9:00 AM CDT Inhaled Oxygen Concentration - - Weight 117.9 kg (260 lb) 05/31/2022 8:00 AM CDT Height 182.9 cm (6') 05/31/2022 8:00 AM CDT Body Mass Index 35.26 05/31/2022 8:00 AM CDT documented in this encounter Medications at Time of Discharge allopurinoL (ZYLOPRIM) 100 mg tabletIndications:pre vention of acute gout attack Take 1 tablet (100 mg total) by mouth 2 (two) times a day 0 amLODIPine (NORVASC) 5 mg tabletIndications:hyp ertension Take 1 tablet (5 mg total) by mouth every morning 2 chlorthalidone 25 mg tabletIndications:hyp ertension Take 1 tablet (25 mg total) by mouth every morning 0 cholecalciferol (VITAMIN D-3) 2000 unit tabletIndications:Low serum vitamin D Take 1 tablet (2,000 Units total) by mouth nightly 90 tablet [address] (NexIUM) 20 mg capsuleIndications:Tr eatment [...] needed for diarrhea 180 capsule 4 2 multivitamin-minerals -lutein tabletIndications:sup plement Take 1 tablet by mouth every morning pregabalin (LYRICA) 50 mg capsuleIndications:ne rve pain Take 1 capsule (50 mg total) by mouth 2 (two) times a day 2 tadalafiL (ADCIRCA) 10 mg tablet Take [...] nightly as needed for sleep PRN 2 BD Luer-Yoan Syringe 3 mL 23 x 1 syringe USE 1 SYRINGE WITH NEEDLE EVERY 2 WEEKS TO INJECT TESTOSTERONE 3 12/23/19 23 docusate sodium (COLACE) 100 mg capsuleIndications:co nstipation Take 1 capsule (100 mg total) by mouth 2 (two) times a day 60 capsule 3 06/17/19 23 inFLIXimab (REMICADE) 100 mg injectionIndications: Crohn's Disease Infuse 120 mL (1,200 mg total) into a venous catheter every 4 (four) weeks Infused at: CAM 5C Frequency change as of 06/30/21 r/t low IFX drug level from 06/07/21. 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 hn's 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 (CMS/HCC) (HCC),High risk medications (not anticoagulants) long-term use Take 8 Tablets Daily for joint stiffness 240 tablet 11 2 08/10/19 23 UNABLE TO FIND Take 1 each by mouth every morning Chewable magnesium 12/23/19 23 vitamin b complex tabletIndications:Vit yung Deficiency Prevention Take 1 tablet by mouth nightly 12/23/19 23 documented as of this encounter Discharge Disposition Disposition Code Departure Means Destination Comment s Discharge to home or self care documented in this encounter H&P Notes * Julia Moreno MD - 05/28/2022 2:39 PM CDT Pre Endoscopy History and Physical Kris Spence is a 62 y.o. male who is here for Procedure(s): POUCHOSCOPY The indication(s) for the procedure(s): ibd. Past Medical History: Diagnosis Date Pam positive Crohn's disease (CMS/HCC) (HCC) GERD (gastroesophageal reflux disease) well controlled with meds HLD (hyperlipidemia) HTN (hypertension) well controlled Liver hemangioma Low testosterone Nephrolithiasis 2018 Obesity Past Surgical History: Procedure Laterality Date ABDOMINAL WALL DEFECT REPAIR 2013 reconstruction CYSTOSCOPY W/ LASER LITHOTRIPSY Right 2013 2018 HEMANGIOMA EXCISION 2016 liver INCISIONAL HERNIA REPAIR 04/13/2021 AWR POUCHOSCOPY 11/14/2020 RESTORATIVE PROCTOCOLECTOMY 2003 J-pouch and reversed VENTRAL HERNIA REPAIR 06/2009 Social History Tobacco Use Smoking status: Never Smokeless tobacco: Never Substance and Sexual Activity Drug use: Yes Types: Alcohol Comment: ~2 drinks/week Sexual activity: Defer Alcohol Use: Heavy Drinker (01/25/2022) AUDIT-C Frequency of Alcohol Consumption: 2-3 times a week Average Number of Drinks: 3 or 4 Frequency of Binge Drinking: Never Family History Problem Relation Age of Onset Cancer Father Hypertension Father Stroke Father Abdominal Aortic Aneurysm Mother Anesthesia problems Neg Hx Allergies Allergen Reactions Fruit Extracts Hives Tomatoes and oranges Iron Rash [place] Juice Hives [place] Oil Hives Sulfa (Sulfonamide Antibiotics) Hives and Rash Tomato Hives Azathioprine Other (See comments) Pancreatitis (Imuran) Prior to Admission medications Medication Sig Start Date End Date Taking? Authorizing Provider allopurinoL (ZYLOPRIM) 100 mg tablet Take 100 mg by mouth 2 (two) times a day 11/29/19 Amie Odonnell MD amLODIPine (NORVASC) 5 mg tablet Take 5 mg by mouth every morning 07/20/21 Amie Odonnell MD chlorthalidone 25 mg tablet Take 25 mg by mouth every morning 11/20/19 Amie Odonnell MD cholecalciferol (VITAMIN D-3) 2000 unit tablet Take 1 tablet (2,000 Units total) by mouth nightly Patient taking differently: Take 2,000 Units by mouth nightly 01/04/22 Julia Moreno MD docusate sodium (COLACE) 100 mg capsule Take 1 capsule (100 mg total) by mouth 2 (two) times a day Patient not taking: Reported on 03/04/2022 02/09/22 03/11/22 Pam Castro MD esomeprazole DR (NexIUM) 20 mg capsule Take 40 mg by mouth every morning bid 02/05/20 Amie Odonnell MD fenofibrate nanocrystallized (TRICOR) 48 mg tablet Take 48 mg by mouth nightly Amie Odonnell MD ibuprofen (ADVIL,MOTRIN) 200 mg tab/cap Take 400 mg by mouth every 6 (six) hours as needed for painProviderAmie MD inFLIXimab (REMICADE) 100 mg injection Infuse 1,200 mg into a venous catheter every 6 (six) weeks Infused at: CAM 5C Frequency change as of 06/30/21 r/t low IFX drug level from 06/07/21. 01/12/21 Julia Moreno MD iron fum/vit C/ascorbate sod (IRON PLUS VITAMIN C ORAL) Take 1 Dose by mouth nightly Amie Odonnell MD Klor-Con M20 20 mEq CR tablet Take 20 mEq by mouth 3 (three) times a day 01/12/20 Amie Odonnell MD loperamide (IMODIUM) 2 mg capsule Take 2 capsules (4 mg total) by mouth 3 (three) times a day as needed for diarrhea Patient taking differently: Take 4 mg by mouth 3 (three) times a day as needed for diarrhea 01/18/22 Julia Moreno MD taenihmpgupd-ekbafkdz-oaokcx tablet Take 1 tablet by mouth every morning Amie Odonnell MD oxyCODONE (ROXICODONE) 5 mg immediate release tablet Take 1 tablet (5 mg total) by mouth every 4 (four) hours as needed for pain Patient not taking: Reported on 03/04/2022 02/09/22 Pam Castro MD pregabalin (LYRICA) 50 mg capsule Take 50 mg by mouth 2 (two) times a day 01/11/22 Amie Odonnell MD sulfaSALAzine (AZULFIDINE) 500 mg tablet Take 8 Tablets Daily for joint stiffness Patient taking differently: Take 1,000 mg by mouth 4 (four) times a day Take 8 Tablets Daily for joint stiffness 09/02/21 Julia Moreno MD tadalafiL (ADCIRCA) 10 mg tablet Take 10 mg by mouth daily as needed for erectile dysfunction 01/12/22 Amie Odonnell MD testosterone cypionate (DEPO-TESTOTERONE) 200 mg/mL injection Inject 200 mg into the muscle as instructed every 14 (fourteen) days 10/07/20 Amie Odonnell MD traZODone (DESYREL) 50 mg tablet Take 50 mg by mouth nightly PRN 01/11/22 Amie Odonnell MD UNABLE TO FIND Take 1 each by mouth every morning Chewable magnesium Amie Odonnell MD vitamin b complex tablet Take 1 tablet by mouth nightly Amie Odonnell MD Review of Systems A pertinent, focused review of systems was completed and negative, except as noted above. OBJECTIVE: Vitals: There were no vitals filed for this visit. Physical Exam: Airway: No significant abnormality. Cardiac: No significant abnormality. Pulmonary: No significant abnormality. Neurological: No significant abnormality. Gastrointestinal: No significant abnormality. ASA Score: per Anesthesia Sedation/Anesthesia Plan: per Anesthesia The risks and complications of the procedure have been explained to the patient. Informed consent was signed. Impression and plan: Will proceed with the planned procedure for the reasons stated above. documented in this encounter Procedure Notes * Julia Moreno MD - 05/31/2022 8:31 AM CDTAssociated Order(s): POUCHOSCOPY ENDOSCOPY LAB Patient Name: Kris Spence Procedure Date: 05/31/2022 8:31 AM Date of : 1960 Admit Type: Outpatient Age: 62 Gender: Male Attending MD: Julia Moreno M.D. 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 Referring MD: Mike Mitchell M.D. Medicines: Monitored Anesthesia Care Complications: No immediate complications. Estimated Blood Loss: Estimated blood loss: none. Procedure: Pre-Anesthesia Assessment: - The risks and benefits of the procedure and the sedation options and risks were discussed with the patient. All questions were answered and informed consent was obtained. - Pre-procedure physical examination revealed no contraindications to sedation. After obtaining informed consent, the endoscope was passed under direct vision. Throughout the procedure, the patient's blood pressure, pulse, and oxygen saturations were monitored continuously. The [id number] was introduced through the ileoanal anastomosis via the anus and advanced to the ileoanal pouch and into the meghna-terminal ileum. The procedure was performed without difficulty. The patient tolerated the procedure well. The quality of the bowel preparation was fair. Findings: The perianal and digital rectal examinations were normal. Pertinent negatives include no palpable rectal lesions. The rectal cuff appeared normal. The ileoanal pouch appeared normal. The pouch inlet contained a few ulcers. No bleeding was present. The inlet was transversed without difficulty. The afferent limb contained a few localized non-bleeding erosions with relative narrowing of the lumen at the previous loop ileostomy site. The afferent limb appeared normal proximal and distal to the previous loop ileostomy site. Impression: - Preparation of the pouch was fair. - The rectal cuff is normal. - The ileoanal pouch is normal. - A few ulcers at the pouch inlet. - A few erosions in the afferent limb with relative narrowing at the loop ileostomy site. - The afferent limb is normal proximal and distal to the previous loop ileostomy site. - No specimens collected. Recommendation: Continue IFX - Contact Information: During normal business hours - Please call the Nurse Coordinator: [phone] After hours, evening, nights, weekends and holidays - Please call the hospital flexographic printing press operator at and ask for the GI fellow oracle iam consultant. Attending Participation: I personally performed the entire procedure. Electronically signed by Julia Moreno M.D. Julia Moreno M.D. 05/31/2022 9:10:21 AM Number of Addenda: 0 Note Initiated On: 05/31/2022 8:31 AM documented in this encounter Miscellaneous Notes * Perioperative Nursing Note - Nevaeh Jackson RN - 05/31/2022 9:38 AM CDT Physician spoke with patient, reviewed findings and discharge instructions. Nurse reviewed discharge instructions and expectations . Patient and pile driver engineer agreed and verbalized understanding. * Pre-Procedure Instructions - Priyanka Loyola RN - 05/28/2022 4:46 PM CDT Please follow all instruction you were given regarding your bowel prep-enemas as directed. When you arrive come to [facility] Hospital entrance. As you enter there will be an information desk, let them know you are here for a procedure and you will be directed to procedure registration area Once registered one of the endoscopy nurses will come to get you ready for your colonoscopy. Dress comfortable. Leave valuable at home-mccauley, credit cards, jewelry For your safety due to the anesthesia you will not be able to drive so please have a ride arranged to and from hospital with a responsible adult. If your pile driver engineer chooses not to come in to the building or will be picking you up after your procedure-we will call your pile driver engineer to confirm your ride home prior to the procedure start time Masking at [facility] is now optional. You may bring a mask and masks are available at hospital entrance. We respect personal choice of anyone who chooses to mask. Be assured employees are ready to mask upon request when providing care. documented in this encounter Plan of Treatment Not on file documented as of this encounter Procedures Procedure Name Priority Date/Time Associated Diagnosis Comments POUCHOSCOPY 05/31/2022 8:41 AM CDT Crohn's disease of small intestine with complication (HCC) POUCHOSCOPY 05/31/2022 8:31 AM CDT T-SPOT.TB Routine 05/31/2022 8:19 AM CDT Crohn's disease of ileum with complication (HCC) documented in this encounter Results * POUCHOSCOPY (05/31/2022 8:31 AM CDT) Anatomical Region Laterality Modality Other Narrative Procedure Note Julia Moreno MD - 05/31/2022 8:31 AM CDT ENDOSCOPY LAB Patient Name: Kris Spence Procedure Date: 05/31/2022 8:31 AM Date of : 1960 Admit Type: Outpatient Age: 62 Gender: Male Attending MD: Julia Moreno M.D. 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 Referring MD: Mike Mitchell M.D. Medicines: Monitored Anesthesia Care Complications: No immediate complications. Estimated Blood Loss: Estimated blood loss: none. Procedure: Pre-Anesthesia Assessment: - The risks and benefits of the procedure and the sedation options and risks were discussed with the patient. All questions were answered and informed consent was obtained. - Pre-procedure physical examination revealed no contraindications to sedation. After obtaining informed consent, the endoscope was passed under direct vision. Throughout theprocedure, the patient's blood pressure, pulse, and oxygen saturations were monitored continuously. The [id number] was introduced through theileoanal anastomosis via the anus and advanced to theileoanal pouch and into the meghna-terminal ileum. Theprocedure was performed without difficulty. The patient tolerated the procedure well. The quality of thebowel preparation was fair. Findings: The perianal and digital rectal examinations were normal. Pertinent negatives include no palpable rectal lesions. The rectal cuff appeared normal. The ileoanal pouch appeared normal. The pouch inlet contained a few ulcers. No bleeding was present. The inlet was transversed without difficulty. The afferent limb contained a few localized non-bleeding erosionswith relative narrowing of the lumen at the previous loop ileostomysite. The afferent limb appeared normal proximal and distal to the previous loop ileostomy site. Impression: - Preparation of the pouch was fair. - The rectal cuff is normal. - The ileoanal pouch is normal. - A few ulcers at the pouch inlet. - A few erosions in the afferent limb with relative narrowing at the loop ileostomy site. - The afferent limb is normal proximal and distalto the previous loop ileostomy site. - No specimens collected. Recommendation: Continue IFX - Contact Information: During normal business hours - Please call theNurse Coordinator: [phone] After hours, evening, nights, weekends and holidays- Please call the hospital flexographic printing press operator at and ask for the GI fellow oracle iam consultant. Attending Participation: I personally performed the entire procedure. Electronically signed by Julia Moreno M.D. Julia Moreno M.D. 05/31/2022 9:10:21 AM Number of Addenda: 0 Note Initiated On: 05/31/2022 8:31 AM Julia Moreno MD ENDOSCOPY PROCEDURE S Final Result * T-SPOT.TB (05/31/2022 8:19 AM CDT) [facility] T-SPOT.TB Negative SeeBelgume [facility]NA[facility] CAR[facility]LL[facility] Comment: Normal Value: Negative A negative test result does not exclude the possibility of exposure to or infection with Mycobacterium tuberculosis (M. tuberculosis). ??Patients with recent exposure to TB infected individuals exhibiting a negative T-SPOT.TB result should be considered for retesting within 6 weeks or if other relevant clinical symptoms indicate. ??Results from T-SPOT.TB testing must be used in conjunction with each individual's epidemiological history, current medical status, and results of other diagnostic evaluations. ??The T-SPOT.TB test is qualitative and results are reported as positive, borderline or negative, given that the test controls perform as expected. In line with the Centers for Disease Control and Prevention's 2010 recommendation to report quantitative measurements alongside the qualitative result, the laboratory provides spot counts for informational purposes only. ??The T-SPOT.TB test should not be interpreted as a quantitative test. T-SPOT.TB Panel A Spot Count 0 [facility] T-SPOT.TB Panel B Spot Count 0 [facility]NA[facility] CARRILL[facility] T-SPOT.TB Negative Control Passed [facility] CARRILL[facility] T-SPOT.TB Positive Control Passed HANNAH CARRILLO Comment: Test Performed at: [facility] [address] [place] [address] ??[id number] ? CLARENCE MINA MD,PHD Blood 05/31/2022 8:19 AM CDT 05/31/2022 8:27 AM CDT Julia Moreno MD LAB MICROBIOLOGY - GENERAL ORDERABLES Final Result [facility] [address] [facility] Department [place] [address] documented in this encounter Visit Diagnoses Diagnosis Crohn's disease of ileum with complication (HCC)- Primary Crohn's disease of small intestine with complication (HCC) documented in this encounter Administered Medications Inactive Administered Medications - up to 3 most recent administrations Medication Order MAR Action Action Date Dose Rate Site famotidine (PEPCID) injection 20 mg 20 mg, intravenous, Administer over 2 Minutes, Once, On Tue05/31/22 at 0830, For 1 dose, Pre-Op Given 05/31/2022 8:27 AM CDT 20 mg ondansetron (ZOFRAN) injection 4 mg 4 mg, intravenous, Administer over 2 Minutes, Once, On Tue05/31/22 at 0830, For 1 dose, Pre-Op Given 05/31/2022 8:27 AM CDT 4 mg sodium chloride 0.9% 0.9% infusion - ADS Override Pull Starting on Tue05/31/22 at 0748, For 1 dose, Created by cabinet override sodium chloride 0.9% flush 0.5-20 mL 0.5-20 mL, intra-catheter, As needed, line care, Starting on Tue05/31/22 at 0750, Pre-Procedure (GI), Flush volume based on line type and size. Flush before and after each use. , Indications: FlushingIndications:Flushing sodium chloride 0.9% flush 0.5-20 mL 0.5-20 mL, intra-catheter, As needed, line care, Starting on Tue05/31/22 at 0750, Pre-Procedure (GI), Flush volume based on line type and size. Flush before and after each use. , Indications: FlushingIndications:Flushing sodium chloride 0.9% infusion 30 mL/hr, intravenous, Continuous, Starting on Tue05/31/22 at 0830, Pre-Procedure (GI) sodium chloride 0.9% infusion 30 mL/hr, intravenous, Continuous, Starting on Tue05/31/22 at 0830, Pre-Procedure (GI) Restarted 05/31/2022 8:56 AM CDT Rate/Dose Verify 05/31/2022 8:42 AM CDT 30 mL/h r New Bag 05/31/2022 8:19 AM CDT 30 mL/hr 30 mL/hr documented in this encounter Active and Recently Administered Medications Times are shown in CDT. Scheduled Medication Order 05/29/2022 05/30/2022 05/31/2022 famotidine (PEPCID) injection 20 mg (COMPLETED) 20 mg, intravenous, Administer over 2 Minutes, Once, On Tue05/31/22 at 0830, For 1 dose, Pre-Op 0827 (Given - Provid er: Shani Mitchell RN) ondansetron (ZOFRAN) injection 4 mg (COMPLETED) 4 mg, intravenous, Administer over 2 Minutes, Once, On Tue05/31/22 at 0830, For 1 dose, Pre-Op 0827 (Given - Provid er: Shani Mitchell RN) Continuous Medication Order 05/29/2022 05/30/2022 05/31/2022 sodium chloride 0.9% infusion 30 mL/hr, intravenous, Continuous, Starting on Tue05/31/22 at 0830, Pre-Procedure (GI) 0830 (Due) sodium chloride 0.9% infusion 30 mL/hr, intravenous, Continuous, Starting on Tue05/31/22 at 0830, Pre-Procedure (GI) 0819 (New Bag - Prov ider: Shani Mitchell RN)0842 (Rate/Dose Verify - Provider: Priyanka Mcdonald CRNA)0855 (Paused - Provider: Priyanka Mcdonald CRNA - Comment: Switch to gravity)0856 (Restarted - Provider: Priyanka Mcdonald CRNA)1355 (Due: Stopped) PRN Medication Order 05/29/2022 05/30/2022 05/31/2022 ondansetron (ZOFRAN) injection 4 mg 4 mg, intravenous, Administer over 2 Minutes, Every 30 min PRN, nausea, vomiting, Starting on Tue05/31/22 at 0906, For 2 doses, Recovery (GI), Indications: Nausea and Vomiting sodium chloride 0.9% flush 0.5-20 mL 0.5-20 mL, intra-catheter, As needed, line care, Starting on Tue05/31/22 at 0750, Pre-Procedure (GI), Flush volume based on line type and size. Flush before and after each use. , Indications: Flushing sodium chloride 0.9% flush 0.5-20 mL 0.5-20 mL, intra-catheter, As needed, line care, Starting on Tue05/31/22 at 0750, Pre-Procedure (GI), Flush volume based on line type and size. Flush before and after each use. , Indications: Flushing documented in this encounter Orders Medications Ordered That Po ht Not Have Been Administered Count Last Ordered Date First Ordered Date ondansetron (ZOFRAN) injection 4 mg 1 05/31 sodium chloride 0.9% flush 0.5-20 mL 2 05/09 sodium chloride 0.9% infusion 1 05/31/2022 Discharge Count Last Ordered Date First Orde red Date DISCHARGE PATIENT 1 05/31/2022 documented in this encounter Care Teams Incinerator Attendant Relationship Specialty Start Date End Date Mike Mitchell MD PCP - General Family Practice 01/16/21 documented as of this encounter
--- OUTSIDE RECORDS SUMMARY | 2024-01-30 08:13 | XMS_ITS | Encounter Summary ---
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) Procedures ND INFLIXIMAB NOT BIOSIMIL 10MG Julia Moreno MD [address] [place] [address] Phone: tel: fax: [facility] Infusion Therapy [address] [place] [address] 5th [place] [address] [place] [address] Phone: tel: fax: Referral ID Status Reason Start Date Expiration Date Visits Re quested Visits Authorized [id number] Closed 08/31/2022 09/01/2023 26 26 Encounter Details Date Type Department Care Team (Late st Contact Info) Description 10/18/2022 10:00 AM CDT Infusion [facility] Infusion Therapy [facility] 5th [place] [address] [place] [address] Crohn's disease of ileum with [...] on file 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 VSS. Tolerated well. Follow ups scheduled. Safely discharged. Lubna Darnell RN documented in this encounter Plan of Treatment [...] intravenous, Administer over 2 Hours, Once, On 10/18/22 at 1045, For 1 dose, Infuse with filter tubing [...] of ileum with complication (HCC) New Bag 10/18/2022 10:05 AM CDT 1,200 mg documented in this encounter Orders Medications Ordered That Po ht Not Have Been Administered Count Last Ordered Date First Ordered Date inFLIXimab (REMICADE) 1,200 mg in sodium chloride 0.9% 500 mL IVPB 1 10/18/2022 documented in this encounter Care Teams Cork Mixer Relationship Specialty Start Date End Date Mike Mitchell MD PCP - General Family Practice 01/16/21 documented as of this encounter
--- OUTSIDE RECORDS SUMMARY | 2024-01-30 08:13 | XMS_ITS | Encounter Summary ---
Author Organization [facility] Address [address] [place] [address] Phone Care Team Providers Care Property Management Specialist Name Role Phone Mike Mitchell MD Primary Care Provider [phone] Encounter Details Date Type Department Care Team (Late st Contact Info) Description 06/14/2022 9:40 AM CDT Office Visit [facility] Orthopaedic Surgery [address] [facility] [address] [place] [address] Shaan Samaniego MD [address] [facility] [address] [place] [address] Complete tear of left rotator cuff, unspecified whether traumatic (Primary Dx) Social History [...] on file 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 Pain has been well-controlled. He is very happy with his progress. He rates his left shoulder is 100% of normal. He is ableto do most activities with his right shoulder this is limiting side at this time. PHYSICAL EXAMINATION No acute distress, alert and oriented X 3. Incision healing is noted with no sign of infection. Active assisted forward elevation is to 160??. External rotation at the side is to 60??. No pain in Cosmo's position strength. No crepitus with range of motion of the left shoulder. Distal motor and sensory function is normal. REVIEW OF X-RAYS/STUDIES No new imaging was performed today IMPRESSION/DIAGNOSIS Doing well now 3 months after Rotator cuff repair TREATMENT/PLAN We will continue with routine postoperative rehabilitation. Continue all activities as tolerated. We reviewed precautions and they voiced understanding. All questions were answered today. He will call us if he has any issues bilateral shoulders. FOLLOW UP P.r.n. Shaan Samaniego MD Assisstant Professor [facility] Dr Samaniego dictating via MModal. Principal Examiner variances may occur. documented in this encounter Plan of Treatment Not on file documented as of this encounter Visit Diagnoses Diagnosis Complete tear of left rotator cuff, unspecified whether traumatic- Primary documented in this encounter Care Teams Property Management Specialist Relationship Specialty Start Date End Date Mike Mitchell MD PCP - General Family Practice 01/16/21 documented as of this encounter
--- OUTSIDE RECORDS SUMMARY | 2024-01-30 08:13 | XMS_ITS | Encounter Summary ---
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 documented in this encounter Plan of Treatment Not on file documented as of this encounter Visit Diagnoses Not on filedocumented in this encounter Care Teams Draw Bench Operator Relationship Specialty Start Date End Date Mike Mitchell MD PCP - General Family Practice 01/16/21 documented as of this encounter
--- OUTSIDE RECORDS SUMMARY | 2024-01-30 08:13 | XMS_ITS | Encounter Summary ---
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 He is given some consideration. He believes that his primary issue is pain not weakness. He is not interested at this time and proceeding with a reverse total shoulder arthroplasty. He wishes to proceed with subacromial decompression, possible rotator cuff repair, possible biceps tenodesis, and possible Nuris in space balloon placement. We reviewed the risks, alternatives, and required rehabilitation as well as anticipated outcomes.. Following review, he wishes to proceed. documented in this encounter Plan of Treatment Not on file documented as of this encounter Visit Diagnoses Diagnosis Right shoulder pain, unspecified chronicity- Primary documented in this encounter Care Teams General Engineer Relationship Specialty Start Date End Date Mike Mitchell MD PCP - General Family Practice 01/16/21 documented as of this encounter
--- OUTSIDE RECORDS SUMMARY | 2024-01-30 08:13 | XMS_ITS | Encounter Summary ---
Author Organization [facility] Healthcare Address [address] [place] [address] Care Team Providers Care Bingo Manager Name Role Phone Mike Mitchell MD Primary Care Provider [phone] Reason for Visit * Auth/Cert (Routine) Specialty Diagnoses / Procedures Referred By Contac t Referred To Contact Diagnoses Tear of right rotator cuff, unspecified tear extent, unspecified whether traumatic Tear of right rotator cuff, unspecified tear extent, unspecified whether traumatic [M75.101] Procedures MI SURGICAL ARTHROSCOPY JASON W/CORACOACRM LIGM RLS ARTHROSCOPY SHOULDER SUBACROMIAL DECOMPRESSION Right possible ARTHROSCOPY SHOULDER ROTATOR CUFF REPAIR Right possible open TENODESIS - BICEPS Right possible [place] InSpace balloon placement Referral ID Status Reason Start Date Expiration Date Visits Re quested Visits Authorized [id number] 1 1 Encounter Details Date Type Department Care Team (Late st Contact Info) Description 01/13/2023 10:21 AM VOCATIONAL ED INSTRUCTOR Anesthesia Event [facility] [address] [place] [id number] Carmine Crystal MD [address] [facility] [place] [address] Shu Pagan NP [address] [facility] [place] [address] Anesthesia Record Procedure Summary Procedure Name Responsible Anesthesiologist Anesthesia Start Time Anesthesia Stop Time ARTHROSCOPY SHOULDER SUBACROMIAL DECOMPRESSION (Right) Right open TENODESIS - BICEPS (Right) (Right: Shoulder) Carmine Crystal MD 01/13/23 1021 01/13/23 1200 Events Date Time Event Comment 01/13/2023 1002 Time out - Regional 1002 Face Time 1002 Start Supplemental O2 1002 An Block Induction The patie nt was reevaluated immediately before moderate or deep sedation and before anesthesia induction. 1008 Block Placed 1015 Block Placed 1021 An Start 1024 AN Equip Check 1024 An Start Data 1024 In Room 1028 An Induction The patient was reevaluated immediately before moderate or deep sedation use and before anesthesia induction. 1029 An Intubation 1040 Anesthesia Ready 1051 Proc Start 1051 Incision Start 1148 Proc Fin 1152 An Extubation 1154 an stop data 1156 Out of Room 1158 Handoff to RN I completed my handoff to the receiving nurse during which we: 1. Patient identified 2. Responsible provider identified 3. Pertinent medical history reviewed 4. Procedure type and surgical course discussed 5. Intraoperative anesthetic management and any significant issues discussed 6. Expectations and concerns for postop period discussed 7. Questions solicited from receiving nurse 8. Patient disposition at the time of handoff: No value filed. 1200 An Stop Meds Name Total ceFAZolin (ANCEF) 2,000 mg/50 mL in dext rossy (premix) 2,000 mg 2,000 mg fentaNYL PF 100 mcg midazolam 2 mg/2 mL 2 mg propofol 160 mg bupivacaine 0.5 % PF 30 mL ondansetron PF 4 mg dexamethasone 4 mg/ml 4 mg succinylcholine syringe 100 mg/5 mL 100 mg Lactated Ringer's (LR) infusion 800 mL * Agents Name O2 N2O Air Sevoflurane Inspired Sevoflurane * Blood No blood administrations on file. Lines, Drains, and Airways Type Details Placement Removal RETIRED Surgical Site 04/13/21; 1239; Abdomen; 01/10/24 (Retired LDA, Removed/Completed by UNIFi Software with LDA Utility); 1213 (Retired LDA, Removed/Completed by [employer] Software with LDA Utility) 04/13/21 1239 by Ashanti Obregon RN 01/10/24 1213 by Discharge Provider, Automatic PNB catheter Placement Date: 02/09/22; Placement Time: 1209 (created via procedure documentation); Pt Tolerance: brachial plexus - interscalene; Removal Date: Injectable, Topical, None; Removal Time: Tolerated well; 01/13/23; 1022 (removed via procedure documentation) 02/09/22 1209 by Hayden Zaldivar MD 01/13/23 1022 by Carmine Crystal MD PNB catheter Placement Date: 01/13/23; Placement Time: 1022 (created via procedure documentation); Pt Tolerance: brachial plexus - interscalene; Removal Date: Injectable, Topical, None; Removal Time: Tolerated well; 01/16/23; 0737 01/13/23 1022 by Carmine Crystal MD 01/16/23 0737 by Ivy Barajas NP ETT Placement Date: 01/13/23; Placement Time: 1041 (created via procedure documentation); Technique: Direct laryngoscopy; Type: ETT - single; Single Lumen Tube Size: 7.5 mm; Cuffed: Yes; Laryngoscope: Trevino; Blade Size: 2; Location: Oral; Grade View: Grade I; Insertion Attempts: 1; Placement Verification: Auscultation, Capnometry; Removal Date: 01/13/23; Removal Time: 1154 01/13/23 1041 by Luke Starks CRNA 01/13/23 1154 by Luke Starks CRNA RETIRED Surgical Site 01/13/23; 1126; Ri ght; Shoulder; 01/13/23; 1314; Discharge 01/13/23 1126 by Gerson Pan RN 01/13/23 1314 by Rossy Boothe RN documented in this encounter Social History Tobacco [...] on file Legal Sex Male 8:42 AM VOCATIONAL ED INSTRUCTOR Gender Identity Not on file Sexual Orientation Straight 04/01/2020 8: 42 PM VOCATIONAL ED INSTRUCTOR documented as of this encounter OR Notes * Anesthesia Postprocedure Evaluation - Carmine Crystal MD - 01/13/2023 12:55 PM CST Patient: Kris Spence Procedure Summary Date: 01/13/23 Room / Location: [facility] 2 / [facility] Anesthesia Start: 1021 Anesthesia Stop: 1200 Procedures: ARTHROSCOPY SHOULDER SUBACROMIAL DECOMPRESSION (Right: Shoulder) Right possible ARTHROSCOPY SHOULDER ROTATOR CUFF REPAIR (Right: Shoulder) Right possible open TENODESIS - BICEPS (Right: Arm Upper) Right possible [place] InSpace balloon placement (Right: Shoulder) Diagnosis: Tear of right rotator cuff, unspecified tear extent, unspecified whether traumatic (Tear of right rotator cuff, unspecified tear extent, unspecified whether traumatic [M75.101]) Providers: Shaan Samaniego MD Responsible Provider: Carmine Crystal MD Anesthesia Type: general, regional for postop pain per surgeon request ASA Status: 3 Anesthesia Type: general, regional for postop pain per surgeon request Last vitals BP 140/93 Pulse 66 Temp 36.4 ??C (97.5 ??F) (Temporal) Resp 23 SpO2 92% Anesthesia Post Evaluation Patient location during evaluation: PACU Patient participation: complete - patient participated Level of consciousness: fully awake Pain management: satisfactory to patient Airway patency: adequate Evidence of recall: no Cardiovascular status: hemodynamically stable Respiratory status: non-labored ventilation Hydration status: stable Pt is: normothermic Nausea/Vomiting status: none No notable events documented. TIONAL ED INSTRUCTOR * Anesthesia Procedure Notes - Luke Starks CRNA - 01/13/2023 10:41 AM CSTAssociated Order(s): Airway Airway Patient location: OR Urgency: elective Indications for airway management: anesthesia Difficult airway: no Staff: Placed by: AUTO REPAIR SHOP MANAGER: Luke Starks CRNA Emergent airway documentation: Risks and benefits discussed: yes Consent obtained: yes Consent given by: patient Airway prep: Preoxygenated: yes Patient position: sniffing Spontaneous ventilation during airway: absent Sedation level during airway: GA Final airway details: Final airway type: endotracheal airway Tube type: ETT ETT size: 7.5 mm Cuffed: yes Technique used for successful ETT placement: direct laryngoscopy Insertion site: oral Blade type: Trevino Blade size: 2 Cormack-Lehane (direct): grade I - full view of glottis Cuff volume: 8 mL Cuff inflated with: air ETT to teeth: 23 cm Placement verified by: auscultation and CO2 detection Airway secured with: silk tape Number of attempts: 1 TIONAL ED INSTRUCTOR * Anesthesia Procedure Notes - Carmine Crystal MD - 01/13/2023 10:22 AM VOCATIONAL ED INSTRUCTOR Associated Order(s): Peripheral Block Peripheral Block Patient location during procedure: pre-op holding Reason for block: post-op pain management per surgeon request Ultrasound image in chart or stored: yes Block type: single shot Laterality: right Block type: PECS II Procedure prep: Preprocedure checklist: patient identified, procedure contraindications assessed, site marked, procedure consent, surgical consent, IV checked, risks, benefits and alternatives discussed, monitors and equipment checked and timeout performed Patient position: sitting and head of bed elevated Procedure performed while patient: sedate with meaningful contact Monitoring: oximetry Supplemental O2: nasal cannula Prep solution: chlorhexidine/alcohol Skin infiltrated with lidocaine 1%: yes Peripheral nerve block: Technique: ultrasound guided Needle type: short-bevel and echogenic Needle gauge: 21 G Needle length: 80 mm Injection assessment: injection made incrementally with constant monitoring, local visualized surrounding nerve on ultrasound, negative aspiration for heme, no paresthesias noted, normal resistance to injection and see flowsheet for medication details Assessment: Block success: full evaluation pending Events: patient tolerated procedure well with no complications TIONAL ED INSTRUCTOR * Anesthesia Procedure Notes - Carmine Crystal MD - 01/13/2023 10:21 AM VOCATIONAL ED INSTRUCTOR Associated Order(s): Peripheral Block Peripheral Block Patient location during procedure: pre-op holding Reason for block: post-op pain management per surgeon request Ultrasound image in chart or stored: yes Block type: catheter continuous infusion Laterality: right Block type: brachial plexus - interscalene Procedure prep: Preprocedure checklist: patient identified, procedure contraindications assessed, site marked, procedure consent, surgical consent, IV checked, risks, benefits and alternatives discussed, monitors and equipment checked and timeout performed Patient position: sitting and head of bed elevated Procedure performed while patient: sedate with meaningful contact Monitoring: oximetry Supplemental O2: nasal cannula Prep solution: chlorhexidine/alcohol PPE: provider hat/mask, sterile gloves, sterile drape and sterile probe cover and gel Skin infiltrated with lidocaine 1%: yes Peripheral nerve block: Technique: ultrasound guided Needle type: insulated, short-bevel and echogenic Needle gauge: 21 G (Jada BeautyLine [id number]) Injection assessment: injection made incrementally with constant monitoring, local visualized surrounding nerve on ultrasound, negative aspiration for heme, no paresthesias noted, normal resistance to injection and see flowsheet for medication details Catheter: Catheter type: 20g non-stimulating catheter and catheter over needle Other catheter type: Pajunk E-Catheter Catheter over needle length: 51 Catheter placement details: catheter position confirmed by ultrasound, no aspiration of heme, negative test dose, steri-strips, occlusive dressing applied and mastisol Assessment: Block success: full evaluation pending Events: patient tolerated procedure well with no complications TIONAL ED INSTRUCTOR * Anesthesia Preprocedure Evaluation - Carmine Crystal MD - 01/05/2023 9:19 AM VOCATIONAL ED INSTRUCTOR Images from the original note were not included. [facility] Preoperative Assessment and Planning Preoperative Evaluation Record Evaluation type/location: TPAP from [facility] Planned procedure site: [facility] Date: 01/05/23 NOTE: This note represents a preoperative evaluation initiated via telephone interview. NO PHYSICALEXAM was performed at the time of initial assessment. A physical exam may be added to this note anddocumented below. Anesthesia Evaluation Kris Spence is a 62 y.o. male Procedure(s): ARTHROSCOPY SHOULDER SUBACROMIAL DECOMPRESSION Right possible ARTHROSCOPY SHOULDER ROTATOR CUFF REPAIR Right possible open TENODESIS - BICEPS Right possible [place] InSpace balloon placement Pre-Op Diagnosis Codes: * Tear of right rotator cuff, unspecified tear extent, unspecified whether traumatic [M75.101] HISTORY HPI 62 year old male being evaluated for arthroscopy of shoulder subacromial decompression, right shoulder rotator cuff repair, right possible open tenodesis and possible nuris in space [facility] placemnt for tear of rotator cuff with PMH Crohns, HTN, nephrolithiasis,[place] + Anit E from previous workup, obesity Past Medical History Information obtained from: patient and chart. Neurological Pertinent negatives: seizures; neuromuscular disease; CVA/stroke; TIA; CEA; ICA stenosis; dementia/mild cognitive impairment; psychiatric history and carotid artery stent Cardiovascular + Hypertension Hypertension year diagnosed: 2014. Pertinent negatives: CAD ; NE ; CABG ; valvular heart disease; valve replacement; atrial fibrillation; arrhythmia; pacemaker/ICD; PVD; DVT/PE; negative for CHF; drug-eluting stent(s); bare metal stent(s) and coronary angioplasty Respiratory Pertinent negatives: COPD; asthma; sleep apnea (CYNDEE) (states negative sleep study in 2012?); pulmonary hypertension; no O2 use outside the hospital and non-smoker Hepatic / Heme + History of Pam positive (anti E not difficult cross match per previous work up 2021) - not difficult cross-match Pertinent negatives: liver disease; history of anemia (last H/H 15.8/45.9 ( 09/01/2022)) and historyof thrombocytopenia Comments: Hx of hepatic hemangioma s/p excision 2016 Gastrointestinal + GERD - on daily therapy. Asymptomatic. + Hiatal hernia Renal / + Nephrolithiasis (s/p lithotripsy) Pertinent negatives: renal disease and dialysis Musculoskeletal/Pain + Chronic pain (right shoulder) Pertinent negatives: chronic opioid use and previous treatment for opioid use disorder Endocrine / Other + Obesity (BMI >30) (BMI 33.23) + Rheumatological disease (remicade infusion , Pouchoscopy) - Crohn's disease. + Pancreatitis (medicine induced 2001) - acute. Pertinent negatives: diabetes mellitus; thyroid disease; cancer history and transplanted organ Functional Capacity Functional capacity: 4-6 METs Comments: Patient would be able to climb 2 flights of stairs at moderate pace without SOB or CP. Chioma golpoly, almaz lawalbert , cycling Review of Systems + previous transfusion (02/1988) + chronic pain (right shoulder) + vision loss (glasses) + diarrhea (2/2 Crohn's) Pertinent negatives: productive cough; wheezing; SOB; recent cold/flu; fever; chest pain; orthopnea; PND; Sickle Cell disease/trait; transfusion reaction; melena/hematochezia; easy bruising; bleedingproblems; syncope; hard of hearing and dysphagia PAT Summary and Plans Cardiac risk classification of planned procedure: low cardiac risk. Preoperative assessment status: complete. Initial preoperative evaluation discussed with: Ada Allen MD Additional comments: Kris Spence is a 62 y.o. male who is being evaluated prior to undergoing a low cardiac risk surgery. Revised Cardiac Risk Index factors are (none) for a total RCRI of 0 out of 6. Functional capacity is 4-6 METs. Obstructive sleep apnea (CYNDEE) screening status is STOP-Bang=4 suggesting moderate risk for CYNDEE. This assessment was performed via telephone. Therefore the physical exam has been deferred to the day of surgery team. The patient was provided with preoperative instructions for their medications. Patient instructions were provided by telephone and electronically sent via [employer]. Patient verbalized understanding of instructions. Blood bank needs for day of procedure: No type and screen needed Pending labs/tests include: None Did not order scopolamine patch d/t urinary retention in setting of kidney stones , was on Flomax in past >>The patient has a history of positive indirect Pam and is having a surgery where blood antibodies are not pertinent to the planned surgery. The antibody type is Anti E. Per previous assessment per blood bank, anticipated cross-match difficulty is not difficult. Based on this information,we will initiate the following blood plan for the day of surgery: No type and screen needed. For day of surgery blood bank specimen availability, the plan is that the no T & S cross needed. Preoperative evaluation performed by Katerin Simeon NP on 01/05/23 at 9:30 AM TPAP assessment complete . Patient Active Problem List Diagnosis Date Noted Tear of right rotator cuff 11/16/2022 Nontraumatic complete tear of left rotator cuff 01/21/2022 Nontraumatic incomplete tear of right rotator cuff 01/21/2022 Gastrointestinal hemorrhage 11/16/2020 Crohn's disease of ileum with complication (HCC) 03/27/2020 Recurrent incisional hernia 03/07/2020 Past Medical History: Diagnosis Date Pam positive Crohn's disease (CMS/HCC) (HCC) GERD (gastroesophageal reflux disease) well controlled with meds HLD (hyperlipidemia) HTN (hypertension) well controlled Liver hemangioma Low testosterone Motion sickness Nephrolithiasis 2017 Obesity Past Surgical History: Procedure Laterality Date ABDOMINAL WALL DEFECT REPAIR 2013 reconstruction CYSTOSCOPY W/ LASER LITHOTRIPSY Right 2013, 2018 HEMANGIOMA EXCISION 2016 liver INCISIONAL HERNIA REPAIR 04/13/2021 AWR POUCHOSCOPY 05/2022 RESTORATIVE PROCTOCOLECTOMY 2002 J-pouch and reversed ROTATOR CUFF REPAIR Left 02/2022 VENTRAL HERNIA REPAIR 06/2009 Allergies Allergen Reactions Fruit Extracts Hives Tomatoes and oranges [place] Juice Hives [place] Oil Hives Sulfa (Sulfonamide Antibiotics) Hives and Rash Tomato Hives Imuran [Azathioprine] Other (See comments) Pancreatitis (Imuran) Med List Status: Nurse Complete Set By: Carlos A Xavier RN at 12/22/2022 2:10 PM Taking? Last Dose Start Date End Date Provider allopurinoL (ZYLOPRIM) 100 mg tablet 12/22/2022 11/29/19 -- Amie Odonnell MD alpha lipoic acid 600 mg capsule 12/22/2022 -- -- Amie Odonnell MD amLODIPine (NORVASC) 5 mg tablet 12/22/2022 07/20/21 -- Amie Odonnell MD chlorthalidone 25 mg tablet 12/22/2022 11/20/19 -- Amie Odonnell MD cholecalciferol (VITAMIN D-3) 2000 unit tablet 12/22/2022 01/04/22 -- Julia Moreno MD Take 1 tablet (2,000 Units total) by mouth nightly Patient taking differently: Take 1 tablet (2,000 Units total) by mouth nightly Notes: DX Code Needed . coenzyme Q10 200 mg capsule 12/22/2022 -- -- Amie Odonnell MD cyanocobalamin (Vitamin B-12) 1,000 mcg tablet 12/22/2022 -- -- Provider, Historical, MD esomeprazole DR (NexIUM) 20 mg capsule 12/22/2022 02/05/20 -- Amie Odonnell MD fenofibrate nanocrystallized (TRICOR) 48 mg tablet 12/21/2022 -- -- Amie Odonnell MD ibuprofen (ADVIL,MOTRIN) 200 mg tab/cap Past Week -- -- Amie Odonnell MD inFLIXimab (REMICADE) 100 mg injection 11/29/2022 01/12/21 -- Julia Moreno MD iron fum/vit C/ascorbate sod (IRON PLUS VITAMIN C ORAL) 12/22/2022 -- -- Amie Odonnell MD Klor-Con M20 20 mEq CR tablet 12/22/2022 01/12/20 -- Amie Odonnell MD loperamide (IMODIUM) 2 mg capsule 12/21/2022 01/18/22 -- Julia Moreno MD Take 2 capsules (4 mg total) by mouth 3 (three) times a day as needed for diarrhea Patient taking differently: Take 2 capsules (4 mg total) by mouth 3 (three) times a day as needed for diarrhea magnesium gluconate 200 mg tablet 12/22/2022 -- -- Amie Odonnell MD qunlkyasosgn-zmzgwsjo-wfehlu tablet 12/22/2022 -- -- Amie Odonnell MD pregabalin (LYRICA) 50 mg capsule 12/22/2022 01/11/22 -- Amie Odonnell MD sulfaSALAzine (AZULFIDINE) 500 mg tablet 12/22/2022 10/04/22 -- Julia Moreno MD Take 2 tablets (1,000 mg total) by mouth 4 (four) times a day Patient taking differently: Take 2 tablets (1,000 mg total) by mouth 4 (four) times a day tadalafiL (ADCIRCA) 10 mg tablet -- 01/12/22 -- Amie Odonnell MD testosterone cypionate (DEPO-TESTOTERONE) 200 mg/mL injection Past Week 10/07/20 -- Amie Odonnell MD traZODone (DESYREL) 50 mg tablet Past Week 01/11/22 -- Amie Odonnell MD No current facility-administered medications for this encounter. Current Outpatient Medications: allopurinoL (ZYLOPRIM) 100 mg tablet alpha lipoic acid 600 mg capsule amLODIPine (NORVASC) 5 mg tablet chlorthalidone 25 mg tablet cholecalciferol (VITAMIN D-3) 2000 unit tablet coenzyme Q10 200 mg capsule cyanocobalamin (Vitamin B-12) 1,[address] (NexIUM) 20 mg capsule fenofibrate nanocrystallized (TRICOR) 48 mg tablet ibuprofen (ADVIL,MOTRIN) 200 mg tab/cap inFLIXimab (REMICADE) 100 mg injection iron fum/vit C/ascorbate sod (IRON PLUS VITAMIN C ORAL) Klor-Con M20 20 mEq CR tablet loperamide (IMODIUM) 2 mg capsule magnesium gluconate 200 mg tablet aqvzabljcqhb-burabcsc-wpikmb tablet pregabalin (LYRICA) 50 mg capsule sulfaSALAzine (AZULFIDINE) 500 mg tablet tadalafiL (ADCIRCA) 10 mg tablet testosterone cypionate (DEPO-TESTOTERONE) 200 mg/mL injection traZODone (DESYREL) 50 mg tablet Social History Tobacco Use Smoking Status Never Smokeless Tobacco Never Alcohol Use: Not At Risk (12/22/2022) AUDIT-C Frequency of Alcohol Consumption: 2-4 times a month Average Number of Drinks: 1 or 2 Frequency of Binge Drinking: Never Substance and Sexual Activity Drug Use Never Family History Problem Relation Age of Onset Cancer Father Hypertension Father Stroke Father Abdominal Aortic Aneurysm Mother Anesthesia problems Neg Hx There were no vitals filed for this visit. PT: No results found for requested labs within last 30 days. INR: No results found for requested labs within last 30 days. APTT: No results found for requested labs within last 30 days. Hgb A1C: No results found for requested labs within last 30 days. CBC RBC: No results found for requested labs within last 30 days. RDW: No results found for requested labs within last 30 days. MCHC: No results found for requested labs within last 30 days. MCH: No results found for requested labs within last 30 days. MCV: No results found for requested labs within last 30 days. Hct: No results found for requested labs within last 30 days. Hgb: No results found for requested labs within last 30 days. WBC: No results found for requested labs within last 30 days. MPV: No results found for requested labs within last 30 days. Platelets: No results found for requested labs within last 30 days. RDW CV: No results found for requested labs within last 30 days. RDW Sd: No results found for requested labs within last 30 days. BMP Glucose: No results found for requested labs within last 30 days. Calcium: No results found for requested labs within last 30 days. Sodium: No results found for requested labs within last 30 days. Potassium: No results found for requested labs within last 30 days. CO2: No results found for requested labs within last 30 days. Chloride: No results found for requested labs within last 30 days. BUN: No results found for requested labs within last 30 days. Creatinine: No results found for requested labs within last 30 days. Miguel Angel index score: 100 DOS Physical Exam Medical history, medications, and allergies reviewed. Attestation: This PAT evaluation Airway Exam: Mallampati: II Cervical ROM: FROM Cardiovascular Exam: Rate: regular Rhythm: regular Pulmonary Exam: LCTA Anesthesia Plan ASA 3 My patient is approved for the Anesthesia Controlled Medication protocol when under care of a AUTO REPAIR SHOP MANAGER Planned anesthesia: General and regional for postop pain per surgeon request Consent and Attending signature: I and/or my designee have discussed the anesthesia plan, benefits, possible alternatives, parental presence at time of induction (if indicated), and clinically relevant risks that may include dental injury, unintentional awareness, and/or other complications. The patient and/or parent/legal guardian understand, and agree to proceed. All questions answered. TIONAL ED INSTRUCTOR TIONAL ED INSTRUCTOR documented in this encounter Miscellaneous Notes * Addendum Note - Ivy Barajas NP - 01/17/2023 7:37 AM CST Addendum created 01/17/23 0737 by Ivy Barajas NP LDA properties accepted TIONAL ED INSTRUCTOR documented in this encounter Plan of Treatment Not on file documented as of this encounter Procedures Procedure Name Priority Date/Time Associated Diagnosis Comments MI AN PROCEDURE PLACEHOLDER Routine 01/13/2023 10:41 AM VOCATIONAL ED INSTRUCTOR MI AN ELECTIVE ENDOTRACHEAL AIRWAY Routine 01/13/2023 10:41 AM VOCATIONAL ED INSTRUCTOR MI AN PROCEDURE PLACEHOLDER Routine 01/13/2023 10:22 AM VOCATIONAL ED INSTRUCTOR MI AN PROCEDURE PLACEHOLDER Routine 01/13/2023 10:21 AM VOCATIONAL ED INSTRUCTOR ANESTHESIA PERIPHERAL BLOCK Routine 01/13/2023 10:21 AM VOCATIONAL ED INSTRUCTOR documented in this encounter Results * MI AN ELECTIVE ENDOTRACHEAL AIRWAY, [place] AN PROCEDURE PLACEHOLDER (01/13/2023 10:41 AM VOCATIONAL ED INSTRUCTOR) Luke Fraser CRNA - 01/13/2023 10:41 AM VOCATIONAL ED INSTRUCTOR Luke Starks CRNA ? 01/13/2023 10:41 AM Airway Patient location: OR Urgency: elective Indications for airway management: anesthesia Difficult airway: no Staff: Placed by: AUTO REPAIR SHOP MANAGER: Luke Starks CRNA Emergent airway documentation: Risks and benefits discussed: yes Consent obtained: yes Consent given by: patient Airway prep: Preoxygenated: yes Patient position: sniffing Spontaneous ventilation during airway: absent Sedation level during airway: GA Final airway details: Final airway type: endotracheal airway Tube type: ETT ETT size: 7.5 mm Cuffed: yes Technique used for successful ETT placement: direct laryngoscopy Insertion site: oral Blade type: Trevino Blade size: 2 Cormack-Lehane (direct): grade I - full view of glottis Cuff volume: 8 mL Cuff inflated with: air ETT to teeth: 23 cm Placement verified by: auscultation and CO2 detection Airway secured with: silk tape Number of attempts: 1 us Carmine Crystal MD ANESTHESIA ORDERABLES Final Resu lt * [place] AN PROCEDURE PLACEHOLDER (01/13/2023 10:22 AM VOCATIONAL ED INSTRUCTOR) Carmine Lara MD - 01/13/2023 10:22 AM VOCATIONAL ED INSTRUCTOR Carmine Crystal MD ? 01/13/2023 10:22 AM Peripheral Block Patient location during procedure: pre-op holding Reason for block: post-op pain management per surgeon request Ultrasound image in chart or stored: yes Block type: single shot Laterality: right Block type: PECS II Procedure prep: Preprocedure checklist: patient identified, procedure contraindications assessed, site marked, procedure consent, surgical consent, IV checked, risks, benefits and alternatives discussed, monitors and equipment checked and timeout performed Patient position: sitting and head of bed elevated Procedure performed while patient: sedate with meaningful contact Monitoring: oximetry Supplemental O2: nasal cannula Prep solution: chlorhexidine/alcohol Skin infiltrated with lidocaine 1%: yes Peripheral nerve block: Technique: ultrasound guided Needle type: short-bevel and echogenic Needle gauge: 21 G Needle length: 80 mm Injection assessment: injection made incrementally with constant monitoring, local visualized surrounding nerve on ultrasound, negative aspiration for heme, no paresthesias noted, normal resistance to injection and see flowsheet for medication details Assessment: Block success: full evaluation pending Events: patient tolerated procedure well with no complications us Carmine Crystal MD ANESTHESIA ORDERABLES Final Resu lt * BW IP ANE LDA PERIPHERAL NERVE CATHETER, [place] AN PROCEDURE PLACEHOLDER (01/13/2023 10:21 AM VOCATIONAL ED INSTRUCTOR) Narrative Carmine Crystal MD - 01/13/2023 10:21 AM VOCATIONAL ED INSTRUCTOR Carmine Crystal MD ? 01/13/2023 10:22 AM Peripheral Block Patient location during procedure: pre-op holding Reason for block: post-op pain management per surgeon request Ultrasound image in chart or stored: yes Block type: catheter continuous infusion Laterality: right Block type: brachial plexus - interscalene Procedure prep: Preprocedure checklist: patient identified, procedure contraindications assessed, site marked, procedure consent, surgical consent, IV checked, risks, benefits and alternatives discussed, monitors and equipment checked and timeout performed Patient position: sitting and head of bed elevated Procedure performed while patient: sedate with meaningful contact Monitoring: oximetry Supplemental O2: nasal cannula Prep solution: chlorhexidine/alcohol PPE: provider hat/mask, sterile gloves, sterile drape and sterile probe cover and gel Skin infiltrated with lidocaine 1%: yes Peripheral nerve block: Technique: ultrasound guided Needle type: insulated, short-bevel and echogenic Needle gauge: 21 G (NextPotential NanoLine [id number]) Injection assessment: injection made incrementally with constant monitoring, local visualized surrounding nerve on ultrasound, negative aspiration for heme, no paresthesias noted, normal resistance to injection and see flowsheet for medication details Catheter: Catheter type: 20g non-stimulating catheter and catheter over needle Other catheter type: Pajunk E-Catheter Catheter over needle length: 51 Catheter placement details: catheter position confirmed by ultrasound, no aspiration of heme, negative test dose, steri-strips, occlusive dressing applied and mastisol Assessment: Block success: full evaluation pending Events: patient tolerated procedure well with no complications Carmine Crystal MD ANESTHESIA ORDERABLES Final Resu lt documented in this encounter Visit Diagnoses Not on filedocumented in this encounter Administered Medications Inactive Administered Medications - up to 3 most recent administrations Medication Order MAR Action Action Date Dose Rate Site BUPivacaine (MARCAINE) 0.5 % (5 mg/mL) preservative free injection perineural, As needed, Starting on Roxy 01/13/23 at 1008, Anesthesia Intra-op Given 01/13/2023 10:15 AM VOCATIONAL ED INSTRUCTOR 10 mL Given 01/13/2023 10:08 AM VOCATIONAL ED INSTRUCTOR 20 mL ceFAZolin (ANCEF) 2,000 mg/50 mL in dextrose (premix) 2,000 mg 2,000 mg, intravenous, at 100 mL/hr, Administer over 30 Minutes, Once, On Roxy 01/13/23 at 0915, For 1 dose, Pre-Op, Administer within 60 minutes of incision. Duplex bag - activate before hanging., Indications: Prophylaxis, SurgicalIndications:Prophylaxis, Surgical Given 01/13/2023 10:34 AM VOCATIONAL ED INSTRUCTOR 2,000 mg dexAMETHasone (DECADRON) 4 mg/mL injection intravenous, Administer over 2 Minutes, As needed, Starting on Roxy 01/13/23 at 1045, Anesthesia Intra-op Given 01/13/2023 10:45 AM VOCATIONAL ED INSTRUCTOR 4 mg fentaNYL (SUBLIMAZE) preservative free injection intravenous, As needed, Starting on Roxy 01/13/23 at 1002, Anesthesia Intra-op Given 01/13/2023 10:02 AM VOCATIONAL ED INSTRUCTOR 100 mcg Lactated Ringer's (LR) infusion 30 mL/hr, intravenous, Continuous, Starting on Roxy 01/13/23 at 0915, Pre-Op, Use a 500 ml bag for End Stage Renal Disease Patients Rate/Dose Verify 01/13/2023 10:21 AM VOCATIONAL ED INSTRUCTOR New Bag 01/13/2023 10:19 AM VOCATIONAL ED INSTRUCTOR midazolam (VERSED) 1 mg/mL injection intravenous, As needed, Starting on Roxy 01/13/23 at 1002, Anesthesia Intra-op Given 01/13/2023 10:02 AM VOCATIONAL ED INSTRUCTOR 2 mg ondansetron (ZOFRAN) injection intravenous, Administer over 2 Minutes, As needed, Starting on Roxy 01/13/23 at 1045, Anesthesia Intra-op Given 01/13/2023 10:45 AM VOCATIONAL ED INSTRUCTOR 4 mg propofoL (DIPRIVAN) 10 mg/mL IV intravenous, As needed, Starting on Roxy 01/13/23 at 1028, Anesthesia Intra-op Given 01/13/2023 10:28 AM VOCATIONAL ED INSTRUCTOR 160 mg succinylcholine syringe intravenous, As needed, Starting on Roxy 01/13/23 at 1028, Anesthesia Intra-op Given 01/13/2023 10:28 AM VOCATIONAL ED INSTRUCTOR 100 mg documented in this encounter Care Teams Bingo Manager Relationship Specialty Start Date End Date Mike Mitchell MD PCP - General Family Practice 01/16/21 documented as of this encounter
--- OUTSIDE RECORDS SUMMARY | 2024-01-30 08:13 | XMS_ITS | Encounter Summary ---
Author Organization [facility] Healthcare Address [address] [place] [address] Care Team Providers Care Clay Caster Name Role Phone Mike Mitchell MD Primary Care Provider [phone] Reason for Referral * MRI/CAT/PET Scan (Routine) - Closed Specialty Diagnoses / Procedures Referred By Contac t Referred To Contact Radiology Diagnoses Right shoulder pain, unspecified chronicity Procedures MRI Shoulder Right WO Contrast Shaan Samaniego MD [address] [place] [address] Phone: tel: fax: [address] [phone] Referral ID Status Reason Start Date Expiration Date Visits Re quested Visits Authorized [id number] Closed 11/01/2022 12/01/2023 1 1 Reason for Visit * MRI/CAT/PET Scan (Routine) - Closed Specialty Diagnoses / Procedures Referred By Contac t Referred To Contact Radiology Diagnoses Right shoulder pain, unspecified chronicity Procedures MRI Shoulder Right WO Contrast Shaan Samaniego MD [address] [place] [address] Phone: tel: fax: [address] [phone] Referral ID Status Reason Start Date Expiration Date Visits Re quested Visits Authorized [id number] Closed 11/01/2022 12/01/2023 1 1 Encounter Details Date Type Department Care Team (Latest Contact Info) Description 11/08/2022 11:46 AM CDT - 11/08/2022 11:59 PM CDT Hospital Encounter [facility] [id number] [place] [id number] Right shoulder pain, unspecified chronicity Discharge Disposition: Discharge to home or self [...] on file Legal Sex 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 01/14/20 23 UNABLE TO FIND Take 1 each by mouth every morning Chewable magnesium 12/23/19 23 vitamin b complex tabletIndications:Vit yung Deficiency Prevention Take 1 tablet by mouth nightly 12/23/19 23 documented as of this encounter Discharge Disposition Disposition Code Departure Means Destination Discharge to home or self care documented in this encounter Plan of Treatment Not on file documented as of this encounter Procedures Procedure Name Priority Date/Time Associated Diagnosis Comments MRI SHOULDER RIGHT WO CONTRAST Schedule Routine, Read Routine (OP Routine) 11/08/2022 12:45 PM CDT Right shoulder pain, unspecified chronicity documented in this encounter Results * MRI Shoulder Right WO Contrast (11/08/2022 12:45 PM CDT) Anatomical Region Laterality Modality Upper Extremities Right Magnetic Reson ance 11/08/2022 1:48 PM CDT Impressions 11/08/2022 2:21 PM CDT 1. ??Full-thickness mmgd-ogfl-yyoor tear of the supraspinatus and infraspinatus tendons with infraspinatus delamination and myotendinous retraction medial to the glenoid. 2. ??Small superior subscapularis partial-thickness articular sided tear. 3. ??Mild intra-articular biceps tendinopathy. 4. ??Mild to moderate glenohumeral chondrosis and mild acromioclavicular osteoarthritis. Dictated by: Howard Mitchell MD The radiology attending physician has personally reviewed this study, and had reviewed and/or edited this written report and agrees with it. Electronically signed by: Shaan Timmons MD Narrative 11/08/2022 2:21 PM CDT EXAMINATION: 1. MRI right shoulder without contrast HISTORY: ??Right shoulder pain with prior ultrasound showing right rotator cuff tear FINDINGS: Comparison radiographs 10/12/2022. ??Multisequence, multiplanar MR examination of the right shoulder was performed with a local coil without contrast. There is a type 1 acromion. The coracoacromial ligament is normal. There is no subacromial spur. There is mild acromioclavicular joint osteoarthritis.. There is moderate to large subacromial subdeltoid fluid volume. There is mild fatty infiltration of the supraspinatus and infraspinatus muscles. ??Muscle bulk is otherwise normal. There is a small superior subscapularis partial-thickness articular sided tear measuring 3 mm in width. There is a full-thickness full width tear of the supraspinatus tendon extending through the junctional fibers to involve the near full width of the infraspinatus tendon measuring 6 cm anterior to posterior. ??There is delamination of the infraspinatus tendon. ??Myotendinous junction is at the level of the spinoglenoid notch. On this nonarthrographic evaluation, there is labral degeneration.. Mild intra-articular biceps tendinopathy. There is mild to moderate glenohumeral chondrosis. ??There is a moderate glenohumeral joint effusion. No loose bodies are identified. The bone marrow signal is normal. Procedure Note Shaan Timmons MD - 11/08/2022 EXAMINATION: 1. MRI right shoulder without contrast HISTORY: Right shoulder pain with prior ultrasound showing right rotator cuff tear FINDINGS: Comparison radiographs 10/12/2022. Multisequence, multiplanar MR examination of the right shoulder was performed with a local coil without contrast. There is a type 1 acromion. The coracoacromial ligament is normal. There is no subacromial spur. There is mild acromioclavicular joint osteoarthritis.. There is moderate to large subacromial subdeltoid fluid volume. There is mild fatty infiltration of the supraspinatus and infraspinatus muscles. Muscle bulk is otherwise normal. There is a small superior subscapularis partial-thickness articular sided tear measuring 3 mm in width. There is a full-thickness full width tear of the supraspinatus tendon extending through the junctional fibers to involve the near full width of the infraspinatus tendon measuring 6 cm anterior to posterior. There is delamination of the infraspinatus tendon. Myotendinous junction is at the level of the spinoglenoid notch. On this nonarthrographic evaluation, there is labral degeneration.. Mild intra-articular biceps tendinopathy. There is mild to moderate glenohumeral chondrosis. There is a moderate glenohumeral joint effusion. No loose bodies are identified. The bone marrow signal is normal. IMPRESSION: 1. Full-thickness womv-idzw-ooomb tear of the supraspinatus and infraspinatus tendons with infraspinatus delamination and myotendinous retraction medial to the glenoid. 2. Small superior subscapularis partial-thickness articular sided tear. 3. Mild intra-articular biceps tendinopathy. 4. Mild to moderate glenohumeral chondrosis and mild acromioclavicular osteoarthritis. Dictated by: Howard Mitchell MD The radiology attending physician has personally reviewed this study, and had reviewed and/or edited this written report and agrees with it. Electronically signed by: Shaan Timmons MD Shaan Samaniego MD IMG MRI PROCEDURE S Final Result documented in this encounter Visit Diagnoses Diagnosis Right shoulder pain, unspecified chronicity documented in this encounter Care Teams Clay Caster Relationship Specialty Start Date End Date Mike Mitchell MD PCP - General Family Practice 01/16/21 documented as of this encounter
--- OUTSIDE RECORDS SUMMARY | 2024-01-30 08:13 | XMS_ITS | Encounter Summary ---
Author Organization [facility] Address [address] [place] [address] Phone Care Team Providers Care Field Support Technician Name Role Phone Mike Mitchell MD Primary Care Provider [phone] [phone] Encounter Details Date Type Department Care Team (Late st Contact Info) Description 10/21/2022 Orders Only [facility] Orthopaedic Surgery [address] [facility] 2[address] [place] [address] Shaan Samaniego MD [address] [facility] [address] [place] [address] Right shoulder pain, unspecified chronicity (Primary Dx) [...] on file 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 ??Normal right shoulder radiographs Electronically signed by: Sai Baer MD Narrative 11/01/2022 1:20 PM CDT EXAMINATION: XR SHOULDER RIGHT 2 OR MORE VIEWS HISTORY: ??Right shoulder pain FINDINGS: 4 radiographs of the right shoulder were submitted for interpretation with comparison to 01/06/2022. ??No humeral alignment is within normal limits. ??Right glenohumeral and acromioclavicular joint spaces are maintained. ??No acute fracture is identified. Procedure Note Sai Baer MD - 11/01/2022 EXAMINATION: XR SHOULDER RIGHT 2 OR MORE VIEWS HISTORY: Right shoulder pain FINDINGS: 4 radiographs of the right shoulder were submitted for interpretation with comparison to 01/06/2022. No humeral alignment is within normal limits. Right glenohumeral and acromioclavicular joint spaces are maintained. No acute fracture is identified. IMPRESSION: 1. Normal right shoulder radiographs Electronically signed by: Sai Baer MD Shaan Samaniego MD IMG XR PROCEDURES Final Result documented in this encounter Visit Diagnoses Diagnosis Right shoulder pain, unspecified chronicity- Primary Right shoulder pain, unspecified chronicity documented in this encounter Care Teams Field Support Technician Relationship Specialty Start Date End Date Mike Mitchell MD PCP - General Family Practice 01/16/21 documented as of this encounter
--- OUTSIDE RECORDS SUMMARY | 2024-01-30 08:13 | XMS_ITS | Encounter Summary ---
Author Organization [facility] Healthcare Address [address] [facility] [address] [place] [address] Care Team Providers Care Relay Shop Tester Name Role Phone Mike Mitchell MD Primary Care Provider [phone] Reason for Visit * Auth/Cert Specialty Diagnoses / Procedures Referred By Roberto t Referred To Contact Diagnoses Crohn's disease of small intestine with complication (HCC) Crohn's disease of small intestine with complication (HCC) [K50.019] Procedures WI NDSC EVAL INTSTINAL POUCH DX W/COLLJ SPEC SPX POUCHOSCOPY Referral ID Status Reason Start Date Expiration Date Visits Re quested Visits Authorized [id number] 1 1 Encounter Details Date Type Department Care Team (Late st Contact Info) Description 05/31/2022 7:24 AM CDT - 05/31/2022 9:50 AM CDT Hospital Encounter [facility] Endoscopy [address] [place] [address] Julia Moreno MD [address] [facility] [address] [place] [address] Crohn's disease of ileum with complication (HCC) (Primary Dx) Discharge Disposition: Discharge to home [...] on file 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 Gender Identity Not on file Sexual Orientation Straight 04/01/2020 8: 42 PM QUALIFIED CRAFT WORKER ELECTRICIAN documented as of this encounter Last Filed Vital Signs Vital Sign Reading Time Taken Comments Blood Pressure 138/86 05/31/2022 9:20 AM CDT Pulse 72 05/31/2022 9:20 AM CDT Temperature 36.5 ??C (97.7 ??F) 05/31/2022 9:00 AM CD T Respiratory Rate 16 05/31/2022 9:20 AM CDT Oxygen Saturation 93% 05/31/2022 9:20 AM CDT Inhaled Oxygen Concentration - - [...] 3 06/17/19 23 sulfaSALAzine (AZULFIDINE) 500 mg tabletIndications:Clinical Research Coordinator hn's 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 (CMS/HCC) [...] Extracts Hives Tomatoes and oranges Iron Rash [place] Juice Hives [place] Oil Hives Sulfa (Sulfonamide Antibiotics) Hives and [...] needed for diarrhea 01/18/22 Julia Moreno MD evdtxfyrotgx-ajekwxlb-lpnqas tablet Take 1 tablet by mouth every [...] Male Attending MD: Julia Moreno M.D. Room: [facility] ENDOSCOPY ROOM 05 Note Status: Finalized Procedure: [...] and oxygen saturations were monitored continuously. The [id number] was introduced through the ileoanal anastomosis via [...] hours - Please call the Nurse Coordinator: [phone] After hours, evening, nights, weekends and holidays - Please call the hospital resistance welding machine operator at and ask for the GI fellow nutritional yeast supervisor. Attending Participation: I personally performed the entire [...] discharge instructions and expectations . Patient and tractor trailer truck driver agreed and verbalized understanding. * Pre-Procedure Instructions - Priyanka Loyola RN - 05/28/2022 4:46 PM CDT Please follow all instruction you were given regarding your bowel prep-enemas as directed. When you arrive come to [facility] Hospital entrance. As you enter there will [...] hospital with a responsible adult. If your tractor trailer truck driver chooses not to come in to the building or will be picking you up after your procedure-we will call your tractor trailer truck driver to confirm your ride home prior to the procedure start time Masking at [facility] is now optional. You may bring a [...] Male Attending MD: Julia Moreno M.D. Room: [facility] ENDOSCOPY ROOM 05 Note Status: Finalized Procedure: [...] and oxygen saturations were monitored continuously. The [id number] was introduced through theileoanal anastomosis via the [...] business hours - Please call theNurse Coordinator: [phone] After hours, evening, nights, weekends and holidays- Please call the hospital resistance welding machine operator at and ask for the GI fellow nutritional yeast supervisor. Attending Participation: I personally performed the entire procedure. Electronically signed by Julia Moreno M.D. Julia Moreno M.D. 05/31/2022 9:10:21 AM Number of Addenda: 0 Note Initiated On: 05/31/2022 8:31 AM us Julia Moreno MD ENDOSCOPY PROCEDURE S Final Result * T-SPOT.TB (05/31/2022 8:19 AM CDT) T-SPOT.TB Negative Coleman CARRILLO Comment: Normal Value: Negative A negative [...] Passed HANNAH CARRILLO Comment: Test Performed at: [facility] [place], [place] ??[address] ? CLARENCE MINA MD,PHD Blood 05/31/2022 8:19 AM CDT 05/31/2022 8:27 AM CDT Julia Moreno MD LAB MICROBIOLOGY - GENERAL ORDERABLES Final Result Performing Organization Address City/State/[facility] Co ne Phone Number HANNAH MOURACH [address] [facility] Department [place] [address] documented in this encounter Visit Diagnoses Diagnosis Crohn's disease of ileum with complication (HCC)- Primary documented in this encounter Administered Medications Inactive Administered Medications - up to 3 most recent administrations Medication Order MAR Action Action Date Dose Rate Site famotidine (PEPCID) injection 20 mg 20 mg, intravenous, Administer over 2 Minutes, Once, On 05/31/22 at 0830, For 1 dose, Pre-Op Given [...] 05/31/2022 documented in this encounter Care Teams Relay Shop Tester Relationship Specialty Start Date End Date Mike Mitchell MD PCP - General Family Practice 01/16/21 documented as of this encounter
--- OUTSIDE RECORDS SUMMARY | 2024-01-30 08:13 | XMS_ITS | Encounter Summary ---
Author Organization [facility] Address [address] [place] [address] Phone Care Team Providers Care Graduate Student Instructor Name Role Phone Mike Mitchell MD Primary Care Provider [phone] [phone] Encounter Details Date Type Department Care Team (Late st Contact Info) Description 11/08/2022 Documentation [facility] Orthopaedic Surgery [address] [facility] Medical Office Building [address] [phone] Shaan Samaniego MD [address] [facility] [place] [address] Social History Tobacco Use Types Packs/Day Years [...] on file 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 He was not available but his was. I shared with her the findings of the MRI and the potential treatment options. I do not think that this is a repairable rotator cuff tear even though there is limited atrophy given the degree of retraction. He is not had any acute episodes recently. He is had a prior subacromial injection. We discussed continu ed conservative management versus arthroscopic debridement with possible rotator cuff repair and possible balloon arthroplasty (Inspace) versus reverse total shoulder arthroplasty. I briefly discussed the risks and benefits with the . She is going to relay this information to Kris. They are going to discuss. We are going to put him on the schedule for a phone call next Tuesday when I return from out of town to finalize next steps. documented in this encounter Plan of Treatment Not on file documented as of this encounter Visit Diagnoses Diagnosis Right shoulder pain, unspecified chronicity- Primary documented in this encounter Care Teams Graduate Student Instructor Relationship Specialty Start Date End Date Mike Mitchell MD PCP - General Family Practice 01/16/21 documented as of this encounter
--- OUTSIDE RECORDS SUMMARY | 2024-01-30 08:13 | XMS_ITS | Encounter Summary ---
Author Organization [facility] Address [address] [place] [address] Phone Care Team Providers Care Actuarial Associate Name Role Phone Mike Mitchell MD Primary Care Provider [phone] [phone] Encounter Details Date Type Department Care Team (Late st Contact Info) Description 08/05/2022 10:30 AM CDT Office Visit [facility] Surgery [address] [facility] Medical Office Building [address] [place] [phone] Prabhjot Aranda, DPM [address] 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
--- OUTSIDE RECORDS SUMMARY | 2024-01-30 08:13 | XMS_ITS | Encounter Summary ---
Author Organization [facility] Address [address] [place] [address] Phone Care Team Providers Care Package Maker Name Role Phone Mike Mitchell MD Primary Care Provider [phone] [phone] Reason for Referral * MRI/CAT/PET Scan (Routine) - Closed Specialty Diagnoses / Procedures Referred By Contac t Referred To Contact Radiology Diagnoses Right shoulder pain, unspecified chronicity Procedures MRI Shoulder Right WO Contrast Shaan Samaniego MD [address] [place] [address] Phone: tel: fax: [facility] [address] [place] [address] Referral ID Status Reason Start Date Expiration Date Visits Re quested Visits Authorized [id number] Closed 11/01/2022 12/01/2023 1 1 Reason for Visit * Reason Comments Follow-up Follow-up Encounter Details Date Type Department Care Team (Late st Contact Info) Description 11/01/2022 11:00 AM CDT Office Visit [facility] Orthopaedic Surgery [address] [facility] 2nd Floor [address] [place] [address] Shaan Samaniego MD [address] [place] [address] Right shoulder pain, unspecified chronicity [...] on file 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 He is doing very well from this surgery. He had known rotator cuff pathology the right shoulder at that time. We gave him a subacromial injection. He is having worsening pain and dysfunction with the right shoulder at this time. PHYSICAL EXAMINATION No acute distress, alert and oriented X 3. He can forward elevate to 140?? on the right side. He can externally rotate to 30?? with 4/5 strength. Has a negative Hornblower's. He can internally rotate to the mid lumbar spine. He is negative abdominal compression test. He is negative biceps provocative test. He has pain in Cosmo's position with 4/5 strength. REVIEW OF X-RAYS/STUDIES X-rays of the right shoulder were ordered, obtained, independently reviewed by me today. These demonstrate slight joint asymmetry without significant glenohumeral arthritis. IMPRESSION/DIAGNOSIS Right shoulder symptomatic rotator cuff tear TREATMENT/PLAN The patient has had a prior ultrasound. This demonstrates a ???near/near full- thickness 2 cm rotator cuff tear. Discussed obtaining an MRI to further quantify his rotator cuff tear, its retraction, and any muscular atrophy. This will guide our management. FOLLOW UP Following MRI MD Tova Stephenson [facility] Dr Samaniego dictating via MModal. Cream Dumper variances may occur. documented in this encounter Plan of Treatment Not on file documented as of this encounter Results * MRI Shoulder Right WO Contrast (11/08/2022 12:45 PM CDT) Anatomical Region Laterality Modality Upper Extremities Right Magnetic Reson ance 11/08/2022 1:48 PM CDT Impressions 11/08/2022 2:21 PM CDT 1. ??Full-thickness gfui-npmw-gtyae tear of the supraspinatus and infraspinatus tendons [...] marrow signal is normal. IMPRESSION: 1. Full-thickness bado-vvki-[id number] tear of the supraspinatus and infraspinatus tendons [...] it. Electronically signed by: Shaan Timmons MD us Shaan Samaniego MD IMG MRI PROCEDURE S Final Result documented in this encounter Visit Diagnoses Diagnosis Right shoulder pain, unspecified chronicity- Primary Right shoulder pain, unspecified chronicity documented in this encounter Care Teams Package Maker Relationship Specialty Start Date End Date Mike Mitchell MD PCP - General Family Practice 01/16/21 documented as of this encounter
--- OUTSIDE RECORDS SUMMARY | 2024-01-30 08:13 | XMS_ITS | Encounter Summary ---
Author Organization [facility] Address [address] [place] [address] Phone Care Team Providers Care Ballistician Name Role Phone Mike Mitchell MD Primary Care Provider [phone] Reason for Visit * Consultation (Routine) - Closed Specialty Diagnoses / Procedures Referred By Roberto moura Referred To Contact Podiatry Diagnoses Idiopathic peripheral neuropathy Crohn's disease of ileum with complication (HCC) Julia Moreno MD [address] [place] [address] Phone: tel: fax: Referral ID Status Reason Start Date Expiration Date V isits Requested Visits Authorized [id number] Closed Specialty Services Required 03/04/2022 04/03/2023 99 99 Encounter Details Date Type Department Care Team (Late st Contact Info) Description 07/15/2022 10:00 AM CDT Office Visit [facility] Surgery [address] [place] [address] Medical Office Building [address] [place] [phone] Idiopathic peripheral neuropathy (Primary Dx); Pain in both feet Social History Tobacco Use Types Packs/Day Years [...] on file Legal Sex 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 Gender Identity Not on file Sexual Orientation Straight 04/01/2020 8: 42 PM PHYSICIAN ASSISTANT SURGERY documented as of this encounter Progress Notes * Shea Arreguin RMA - 07/15/2022 10:00 AM CDT Orthotic scan- [employer]-insurance documented in this encounter Plan of Treatment Not on file documented as of this encounter Visit Diagnoses Diagnosis Idiopathic peripheral neuropathy- Primary Unspecified hereditary and idiopathic peripheral neuropathy Pain in both feet documented in this encounter Care Teams Ballistician Relationship Specialty Start Date End Date Mike Mitcehll MD PCP - General Family Practice 01/16/21 documented as of this encounter
--- OUTSIDE RECORDS SUMMARY | 2024-01-30 08:13 | XMS_ITS | Encounter Summary ---
Author Organization [facility] Address [address] [place] [address] Phone Care Team Providers Care Trauma Nurse Name Role Phone Mike Mitchell MD Primary Care Provider [phone] [phone] Reason for Visit * Episode Based Medications (Routine) - Closed Specialty Diagnoses / Procedures Referred By Contac t Referred To Contact Diagnoses Crohn's disease of ileum with complication (HCC) Procedures [place] INFLIXIMAB NOT BIOSIMIL 10MG Julia Moreno MD [address] [place] [address] Phone: tel: fax: [facility] Infusion Therapy [address] [place] [address] 5th [place] [address] [place] [address] Phone: tel: fax: Referral ID Status Reason Start Date Expiration Date Visits Re quested Visits Authorized [id number] Closed 08/31/2022 09/01/2023 26 26 Encounter Details Date Type Department Care Team (Late st Contact Info) Description 06/03/2022 9:30 AM CDT Infusion [facility] Infusion Therapy [address] [place] [address] 5th [place] [address] [place] [address] Crohn's disease of ileum with [...] on file 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 No S/S of adverse reaction. VSS. Follow up scheduled. Jin Hanks RN documented in this encounter Plan of Treatment Not on file documented as of this encounter Procedures Procedure Name Priority Date/Time Associated Diagnosis Comments CBC WITH AUTO DIFFERENTIAL Routine 06/03/2022 10:15 AM CDT Crohn's disease of ileum with complication (HCC) HEPATIC FUNCTION PANEL Routine 06/03/2022 10:15 AM CDT Crohn's disease of ileum with complication (HCC) documented in this encounter Results * CBC with auto differential (06/03/2022 10:15 AM CDT) White Blood Count 5.2 3.6 - 11.2 K/uL [facility] RBC 5.05 4.06 - 5.63 M/uL [facility] Hemoglobin 15.8 13.0 - 17.5 g/dL [facility] Hematocrit 45.9 40.7 - 50.3 % [facility] MCV 90.8 80.0 - 97.6 fL [facility] MCH 31.2 26.7 - 33.7 pg [facility] MCHC 34.4 32.7 - 35.5 g/dL [facility] RBC Dist Width 13.3 12.3 - 17.0 % [facility] Platelet Count 207 140 - 440 K/uL [facility] MPV 9.0 6.8 - 10.4 fL [facility] Neutrophils % 60.7 38.7 - 74.5 % [facility] Lymphocyte % 29.2 20.0 - 54.3 % [facility] Monocytes % 9.0 4.3 - 13.5 % [facility] Eosinophils % 0.7 0.0 - 6.0 % [facility] Basophil % 0.4 0.0 - 3.0 % [facility] Absolute Neutrophil 3.1 1.8 - 6.6 K/uL [facility] Absolute Lymphocyte 1.5 0.8 - 3.3 K/uL [facility] Absolute Monocyte 0.5 0.2 - 1.2 K/uL [facility] Absolute Eosinophil 0.0 0.0 - 0.5 K/uL [facility] Absolute Basophil 0.0 0.0 - 0.2 K/uL [facility] Nucleated RBC % 0.1 0.0 - 0.4 /100 WBC [facility] Blood 06/03/2022 10:1 5 AM CDT 06/03/2022 11:59 AM CDT us Julia Moreno MD LAB BLOOD ORDERABLE S Final Result [facility] * Hepatic function panel (06/03/2022 10:15 AM CDT) Direct Bilirubin 0.11 0.00 - 0.30 mg/dL [facility] AST (SGOT) 33 11 - 47 IU/L [facility] ALT (SGPT) 31 6 - 53 IU/L [facility] Alk Phos, Total 57 35 - 129 IU/L [facility] Albumin 4.4 3.5 - 5.2 g/dL [facility] Total Bilirubin 0.38 0.20 - 1.40 mg/dL [facility] Total Protein 7.2 6.1 - 8.4 g/dL [facility] Blood 06/03/2022 10:1 5 AM CDT 06/03/2022 11:59 AM CDT us Julia Moreno MD LAB BLOOD ORDERABLE S Final Result [facility] documented in [...] intravenous, Administer over 2 Hours, Once, On Roxy 06/03/22 at 1045, For 1 dose, Infuse with [...] of ileum with complication (HCC) New Bag 06/03/2022 10:15 AM CDT 1,200 mg documented in this encounter Orders Medications Ordered That Po ht Not Have Been Administered Count Last Ordered Date First Ordered Date inFLIXimab (REMICADE) 1,200 mg in sodium chloride 0.9% 500 mL IVPB 1 06/03/2022 documented in this encounter Care Teams Trauma Nurse Relationship Specialty Start Date End Date Mike Mitchell MD PCP - General Family Practice 01/16/21 documented as of this encounter
--- OUTSIDE RECORDS SUMMARY | 2024-01-30 08:13 | XMS_ITS | Encounter Summary ---
Author Organization [facility] Address [address] [place] [address] Phone Care Team Providers Care Automobile Club Membership Sales Agent Name Role Phone Mike Mitchell MD Primary Care Provider [phone] [phone] Reason for Visit * Episode Based Medications (Routine) - Closed Specialty Diagnoses / Procedures Referred By Contac t Referred To Contact Diagnoses Crohn's disease of ileum with complication (HCC) Procedures [place] INFLIXIMAB NOT BIOSIMIL 10MG Julia Moreno MD [address] [place] [address] Phone: tel: fax: [facility] Infusion Therapy [address] [place] [address] 5th [place] [address] [place] [address] Phone: tel: fax: Referral ID Status Reason Start Date Expiration Date Visits Re quested Visits Authorized [id number] Closed 08/31/2022 09/01/2023 26 26 Encounter Details Date Type Department Care Team (Late st Contact Info) Description 07/16/2022 9:30 AM CDT Infusion [facility] Infusion Therapy [address] [place] [address] 5th [place] [address] [place] [address] Crohn's disease of ileum with [...] on file 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 [...] intravenous, Administer over 2 Hours, Once, On Tue07/16/22 at 1000, For 1 dose, Infuse with filter tubing [...] of ileum with complication (HCC) New Bag 07/16/2022 9:30 AM CDT 1,200 mg documented in this encounter Orders Medications Ordered That Po ht Not Have Been Administered Count Last Ordered Date First Ordered Date inFLIXimab (REMICADE) 1,200 mg in sodium chloride 0.9% 500 mL IVPB 1 07/16/2022 documented in this encounter Care Teams Automobile Club Membership Sales Agent Relationship Specialty Start Date End Date Mike Mitchell MD PCP - General Family Practice 01/16/21 documented as of this encounter
--- OUTSIDE RECORDS SUMMARY | 2024-01-30 08:13 | XMS_ITS | Encounter Summary ---
Author Organization [facility] Address [address] [place] [address] Phone Care Team Providers Care Grades 1 Through 5 Teacher Name Role Phone Mike Mitchell MD Primary Care Provider [phone] [phone] Encounter Details Date Type Department Care Team (Late st Contact Info) Description 06/16/2022 3:30 PM CDT Office Visit [facility] Minimally Invasive Surgery [address] [place] [address] Medical Office Building [address] [place] [address] Ky Sheth MD [address] [place] [address] History of incisional hernia repair (Primary Dx) Social History Tobacco Use Types [...] on file 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 Gender Identity Not on file Sexual Orientation Straight 04/01/2020 8: 42 PM SUPERVISOR BOARDING documented as of this encounter Last Filed Vital Signs Vital Sign Reading Time Taken Comments Blood Pressure 150/92 06/16/2022 2:55 PM CDT Pulse 75 06/16/2022 2:55 PM CDT Temperature - - Respiratory Rate - - Oxygen Saturation 96% 06/16/2022 2:55 PM CDT Inhaled Oxygen Concentration - - Weight 115.2 kg (254 lb) 06/16/2022 2:55 PM CDT Height 182.9 cm (6') 06/16/2022 2:55 PM CDT Body Mass Index 34.45 06/16/2022 2:55 PM CDT documented in this encounter Progress Notes * Ky Sheth MD - 06/16/2022 3:30 PM CDT Images from the original note were not included. [facility] Minimally Invasive Surgery Established Patient Kris Spence [id number] REFERRING PHYSICIAN - Mike Mitchell MD PCP - Mike Mitchell MD DATE OF LAST OPERATION: 04/13/2021 PROCEDURE: Open repair of recurrent, incarcerated incisional hernia with mesh. HISTORY OF PRESENT ILLNESS: The patient is a 62 y.o. male presenting for a 1 year follow-up after arecurrent incisional hernia repair. He is doing well since surgery. Denies pain, wound infections or new bulges. PHYSICAL EXAMINATION: Ht: 182.9 cm (6') Wt: 115.2 kg (254 lb) BMI: Body mass index is 34.45 kg/m??. BP 150/92 Pulse 75 Ht 182.9 cm (6') Wt 115.2 kg (254 lb) SpO2 96% BMI 34.45 kg/m?? GENERAL: Well-appearing individual in no acute distress. NEURO: Alert and oriented x3, mood and affect appropriate. HEENT: Pupils equal. EOMs grossly normal. LUNGS: Breathing comfortably on room air. No audible wheezes. CARDIO: Regular rate and rhythm. SKIN: Smooth and dry. No rash. ABDOMEN: Incision well healed. Soft, non-tender, no masses. No hepatomegaly, no splenomegaly. No hernias EXTREMITIES: Palpable pedal pulses. No venous stasis changes. ASSESSMENT AND PLAN: 62 yo male presenting for 1 year follow-up after recurrent incisional hernia repair and abdominal wall reconstruction. He is doing well. There is no evidence of hernia recurrence. I will see him again on an as needed basis. Meagan Kearns MD TEACHING ATTESTATION I have seen and examined the patient along with the resident and agree with their note and plan as documented above. Briefly, patient is a 62 y.o. male presenting for 1 year follow-up after open repair of recurrent incisional hernia. He is doing quite well without any abdominal complaints. He is at his normal activity levels. He is no evidence of recurrence on physical exam. He can continue with his normal activities and follow up with me as needed. Ky Sheth MD Minimally Invasive GI Surgery & Abdominal Wall Reconstruction booking clerk [facility] [employer] [phone] documented in this encounter Plan of Treatment Not on file documented as of this encounter Visit Diagnoses Diagnosis History of incisional hernia repair- Primary documented in this encounter Discontinued Medications Medication Sig Discontinue Reason Start Date End Da te docusate sodium (COLACE) 100 mg capsuleIndications:const ipation Take 1 capsule (100 mg total) by mouth 2 (two) times a day 02/09/2022 06/16/2022 oxyCODONE (ROXICODONE) 5 mg immediate release tabletIndications:Pain Take 1 tablet (5 mg total) by mouth every 4 (four) hours as needed for pain 02/09/2022 06/16/2022 documented as of this encounter Care Teams Grades 1 Through 5 Teacher Relationship Specialty Start Date End Date Mike Mitchell MD PCP - General Family Practice 01/16/21 documented as of this encounter
--- OUTSIDE RECORDS SUMMARY | 2024-01-30 08:13 | XMS_ITS | Referral Summary ---
Author Organization [facility] Address [address] [place] [id number] Care Team Providers Care Business Computers Teacher Name Role Phone Mike Mitchell MD Primary Care Provider [phone] Allergies Active Allergy Reactions Criticality Noted Date Comments Fruit Extracts Hives Medium 06/09/2015 Tomatoes and oranges Azathioprine Other (See comments) Low 04/05/2017 Pancreatitis (Imuran) Banks Juice Hives Medium 09/16/2009 Banks Oil Hives Medium 09/16/2009 Sulfa (Sulfonamide Antibiotics) [...] (01/21/2022): Added automatically from request for surgery [id number] Nontraumatic incomplete tear of right rotator cu ff 01/21/2022 Overview (01/21/2022): Added automatically from request for surgery [id number] Gastrointestinal hemorrhage 11/16/2020 Crohn's disease of ileum with complication 03/27 Recurrent incisional hernia 03/07/2020 Immunizations Name Administration Dates Next Due Hep B Vaccine 09/08/2016,2016,02/10/2016 ZOSTER Recombinant 03/27/2019,01/23/2019 Social History Tobacco Use Types Packs/Day Years [...] on file 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69 01/13/2023 8:52 AM DENTAL MECHANIC Plan of Treatment Not on file Medical Devices Implanted Type Area Vp Legal Affairs Device Identifier Shelf Expiration Date Model / Serial / Lot Ethicon Endo Surgery [id number] Square Mesh Surgical Prolene Polypropylene - Sn/A - [id number] Implanted:Qty: 1 on 04/13/2021 by Ky Sheth MD at [facility] Mesh N/A: Abdomen Ethicon Endo Surgery [id number] 12/07/2024 [id number] / N/A / [id number] [employer] Set Implant Arthrex Fibertak Biceps Sterile Latex Free Ar-3670 - [id number] Implanted:Qty: 1 on 02/09/2022 by Shaan Samaniego MD at [facility] Left: Shoulder [employer] 10/07/2026 AR-3670 / / [id number] [employer] Corkscrew Suturetape 5.5mm 14.7mm Bioabsorbable Full Thread 1.3mm Ar-1927bct - [id number] Implanted:Qty: 1 on 02/09/2022 by Shaan Samaniego MD at [facility] Left: Humerus [employer] Inc 12/08/[address] / / [id number] [employer] Swivelock C 4.75mm 19.1mm Closed Eyelet Vent [place] Suture Ar-2324bcc - [id number] Implanted:Qty: 1 on 02/09/2022 by Shaan Samaniego MD at [facility] [employer] 12/07/2025 AR-2324B CC / / [id number] [employer] Swivelock C 4.75mm 19.1mm Closed Eyelet Vent [place] Suture Ar-2324bcc - [id number] Implanted:Qty: 1 on 02/09/2022 by Shaan Samaniego MD at [facility] Shoulder [employer] 12/07/2025 AR-2324B CC / / [id number] [employer] System Biceps [place] Slotted Drill Guide 1.9mm Drill Fibertak Ar-3670 - [id number] Implanted:Qty: 1 on 01/13/2023 by Shaan Samaniego MD at [facility] Right: Shoulder [employer] 10/08/2027 AR-3670 / / [id number] [place] [address] [facility] [id number] [employer] OPEN ACCESS [facility] [id number] Advance Directives For more information, please contact: [phone] * Full Code (Latest Code Status on [...] 7:33 AM 11/14/2020 2:37 PM Care Teams Business Computers Teacher Relationship Specialty Start Date End Date Mike Mitchell MD PCP - General Family Practice 01/16/21
--- OUTSIDE RECORDS SUMMARY | 2024-01-30 08:13 | XMS_ITS | Encounter Summary ---
Author Organization [facility] Healthcare Address [address] [place] [address] Care Team Providers Care Comfort Filler Name Role Phone Mike Crump MD Primary Care Provider [phone] Reason for Visit * Auth/Cert Specialty Diagnoses / Procedures Referred By Roberto t Referred To Contact Diagnoses Crohn's disease of small intestine with complication (HCC) Crohn's disease of small intestine with complication (HCC) [K50.019] Procedures AK NDSC EVAL INTSTINAL POUCH DX W/COLLJ SPEC SPX POUCHOSCOPY Referral ID Status Reason Start Date Expiration Date Visits Re quested Visits Authorized [id number] 1 1 Encounter Details Date Type Department Care Team (Late st Contact Info) Description 05/31/2022 8:42 AM CDT Anesthesia Event [facility] [address] [place] [address] Avtar Long MD [address] [facility] [address] [place] [address] Anesthesia Record Procedure Summary Procedure Name Responsible Anesthesiologist Anesthesia Start Time Anesthesia Stop Time POUCHOSCOPY (Left) Avtar Long MD 05/31/22 0842 05/31/22 0903 Events Date Time Event Comment 05/31/2022 0759 0817 AN Equip Check 0841 In Room 0842 An Start 0842 An Start Data 0842 Start Supplemental O2 0845 Patient Positioned Laterally 0849 An Induction The patient was reevaluated immediately before moderate or deep sedation use and before anesthesia induction. 0849 Anesthesia Ready 0851 Proc Start 0856 Proc Fin 0857 an stop data 0858 Out of Room 0902 Handoff to RN I completed my handoff [...] Patient disposition at the time of handoff: PACU 0903 An Stop Meds Name Total propofol 200 mg propofol 61.9 mg Lidocaine IV 2 % 5 mL sodium chloride 0.9% infusion 400 mL * Agents Name O2 N2O Air * Blood No blood administrations on file. Lines, Drains, and Airways Type Details Placement Removal RETIRED Surgical Site 04/13/21; 1239; Abdomen; 01/10/24 (Retired LDA, Removed/Completed by appsplit with LDA Utility); 1213 (Retired LDA, Removed/Completed by appsplit with LDA Utility) 04/13/21 1239 by Ashanti Obregon RN 01/10/24 1213 by Discharge Provider, Automatic PNB catheter Placement Date: 02/09/22; Placement Time: 1209 (created via procedure documentation); Pt Tolerance: brachial plexus - interscalene; Removal Date: Injectable, Topical, None; Removal Time: Tolerated well; 01/13/23; 1022 (removed via procedure documentation) 02/09/22 1209 by Hayden Zaldivar MD 01/13/23 1022 by Carmine Crystal MD Peripheral IV Placement Date: 05/31/22; Placement Time: 08; Catheter Size: 20 G; Orientation: Right; Location: Hand; Site Prep: Chlorhexidine; Inserted by: princess crump rn; Insertion Attempts: 1; Patient Tolerance: Tolerated well; Removal Date: 05/31/22; Removal Time: 0905/31/22 0828 by Shani Crump RN 05/31/22 0938 by Nevaeh Jackson RN documented in this encounter Social History [...] on file 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 Gender Identity Not on file Sexual Orientation Straight 04/01/2020 8: 42 PM 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 documented as of this encounter OR Notes * Anesthesia Postprocedure Evaluation - Avtar Long MD - 05/31/2022 3:23 PM CDT Patient: Kris Spence Procedure Summary Date: 05/31/22 Room / Location: [facility] ENDOSCOPY ROOM [facility] END[facility]COPY Anesthesia Start: 841 Anesthesia Stop: 902 Procedure: POUCHOSCOPY (Left) Diagnosis: Crohn's disease of small intestine with complication (HCC) (Crohn's disease of small intestine with complication (HCC) [K50.019]) Providers: Julia Moreno MD Responsible Provider: Avtar Long MD Anesthesia Type: general ASA Status: 2 Anesthesia Type: general Last vitals BP 138/86 Pulse 72 Temp 36.5 ??C (97.7 ??F) Resp 16 SpO2 93% Anesthesia Post Evaluation Patient location during evaluation: PACU Patient participation: complete - patient participated Level of consciousness: fully awake Pain score: 0 Pain management: adequate Airway patency: adequate Evidence of recall: no Cardiovascular status: hemodynamically stable and acceptable Respiratory status: acceptable and room air Hydration status: acceptable Pt is: normothermic Nausea/Vomiting status: none No notable events documented. * Anesthesia Preprocedure Evaluation - Avtar Long MD - 05/31/2022 8:00 AM CDT Images from the original note were not included. Anesthesia Evaluation Kris Spence is a 62 y.o. male Procedure(s): POUCHOSCOPY Pre-Op Diagnosis Codes: * Crohn's disease of small intestine with complication (HCC) [K50.019] Patient Active Problem List Diagnosis ??? Recurrent incisional hernia ??? Crohn's disease of ileum with complication (HCC) ??? Gastrointestinal hemorrhage ??? Nontraumatic complete tear of left rotator cuff ??? Nontraumatic incomplete tear of right rotator cuff Past Medical History: Diagnosis Date ??? Pam positive ??? Crohn's disease (CMS/HCC) (HCC) ??? GERD (gastroesophageal reflux disease) well controlled with meds ??? HLD (hyperlipidemia) ??? HTN (hypertension) well controlled ??? Liver hemangioma ??? Low testosterone ??? Nephrolithiasis 2018 ??? Obesity Past Surgical History: Procedure Laterality Date ??? ABDOMINAL WALL DEFECT REPAIR 2013 reconstruction ??? CYSTOSCOPY W/ LASER LITHOTRIPSY Right 2013, 2018 ??? HEMANGIOMA EXCISION 2016 liver ??? INCISIONAL HERNIA REPAIR 04/13/2021 AWR ??? POUCHOSCOPY 11/14/2020 ??? RESTORATIVE PROCTOCOLECTOMY 2003 J-pouch and reversed ??? ROTATOR CUFF REPAIR Left 02/2022 ??? VENTRAL HERNIA REPAIR 06/2009 Allergies Allergen Reactions ??? Fruit Extracts Hives Tomatoes and oranges ??? Iron Rash ??? Williamson Juice Hives ??? Williamson Oil Hives ??? Sulfa (Sulfonamide Antibiotics) Hives and Rash ??? Tomato Hives ??? Azathioprine Other (See comments) Pancreatitis (Imuran) Taking? Last Dose Start Date End Date Provider allopurinoL (ZYLOPRIM) 100 mg tablet -- 11/29/19 -- ProviderAmie MD amLODIPine (NORVASC) 5 mg tablet -- 07/20/21 -- ProviderAmie MD chlorthalidone 25 mg tablet -- 11/20/19 -- Amie Odonnell MD cholecalciferol (VITAMIN D-3) 2000 unit tablet -- 01/04/22 -- Julia Moreno MD Take 1 tablet (2,000 Units total) by mouth nightly Patient taking differently: Take 2,000 Units by mouth nightly Notes: DX Code Needed . docusate sodium (COLACE) 100 mg capsule () -- 02/09/22 03/11/22 Pam Castro MD Take 1 capsule (100 mg total) by mouth 2 (two) times a day Patient not taking: Reported on 03/04/[address] (NexIUM) 20 mg capsule -- 02/05/20 -- Amie Odonnell MD Notes: 2x/day fenofibrate nanocrystallized (TRICOR) 48 mg tablet -- -- -- Amie Odonnell MD ibuprofen (ADVIL,MOTRIN) 200 mg tab/cap -- -- -- Amie Odonnell MD inFLIXimab (REMICADE) 100 mg injection -- 01/12/21 -- Julia Moreno MD iron fum/vit C/ascorbate sod (IRON PLUS VITAMIN C ORAL) -- -- -- Amie Odonnell MD Klor-Con M20 20 mEq CR tablet -- 01/12/20 -- Amie Odonnell MD loperamide (IMODIUM) 2 mg capsule -- 01/18/22 -- Julia Moreno MD Take 2 capsules (4 mg total) by mouth 3 (three) times a day as needed for diarrhea Patient taking differently: Take 4 mg by mouth 3 (three) times a day as needed for diarrhea mkvnauozzxnb-bdmexrab-bjvzvh tablet -- -- -- Amie Odonnell MD oxyCODONE (ROXICODONE) 5 mg immediate release tablet -- 02/09/22 -- Pam Castro MD Take 1 tablet (5 mg total) by mouth every 4 (four) hours as needed for pain Patient not taking: Reported on 03/04/2022 pregabalin (LYRICA) 50 mg capsule -- 01/11/22 -- Amie Odonnell MD sulfaSALAzine (AZULFIDINE) 500 mg tablet -- 09/02/21 -- Julia Moreno MD Take 8 Tablets Daily for joint stiffness Patient taking differently: Take 1,000 mg by mouth 4 (four) times a day Take 8 Tablets Daily for joint stiffness Notes: NEW PRESCRIPTION WITH NEW DOSE tadalafiL (ADCIRCA) 10 mg tablet -- 01/12/22 -- Amie Odonnell MD testosterone cypionate (DEPO-TESTOTERONE) 200 mg/mL injection -- 10/07/20 -- Amie Odonnell MD traZODone (DESYREL) 50 mg tablet -- 01/11/22 -- Amie Odonnell MD UNABLE TO FIND -- -- -- Amie Odonnell MD vitamin b complex tablet -- -- -- Amie Odonnell MD Current Facility-Administered Medications: ??? famotidine (PEPCID) injection 20 mg, 20 mg, intravenous, Once ??? ondansetron (ZOFRAN) injection 4 mg, 4 mg, intravenous, Once ??? sodium chloride 0.9% 0.9% infusion - ADS Override Pull, , , ??? sodium chloride 0.9% flush 0.5-20 mL, 0.5-20 mL, intra-catheter, PRN ??? sodium chloride 0.9% flush 0.5-20 mL, 0.5-20 mL, intra-catheter, PRN ??? sodium chloride 0.9% infusion, 30 mL/hr, intravenous, Continuous ??? sodium chloride 0.9% infusion, 30 mL/hr, intravenous, Continuous Social History Tobacco Use Smoking Status Never Smokeless Tobacco Never Vaping Use Vaping Status Never Used Alcohol Use: Heavy Drinker (01/25/2022) AUDIT-C ??? Frequency of Alcohol Consumption: 2-3 times a week ??? Average Number of Drinks: 3 or 4 ??? Frequency of Binge Drinking: Never Substance and Sexual Activity Drug Use Yes ??? Types: Alcohol Comment: ~2 drinks/week Family History Problem Relation Age of Onset ??? Cancer Father ??? Hypertension Father ??? Stroke Father ??? Abdominal Aortic Aneurysm Mother ??? Anesthesia problems Neg Hx There were no [...] for requested labs within last 30 days. DOS Physical Exam Medical history, medications, and allergies reviewed. Attestation: This PAT evaluation Airway Exam: Mallampati: III Cervical ROM: FROM Cardiovascular Exam: Rate: regular Rhythm: regular Pulmonary Exam: LCTA, bilat Anesthesia Plan ASA 2 My patient is approved for the Anesthesia Controlled Medication protocol when under care of a PUBLIC SERVICES ASSISTANT Planned anesthesia: General Informed Consent: Anesthesia plan and risks discussed with patient. Consent and Attending signature: I and/or my designee have discussed the anesthesia plan, benefits, possible alternatives, parental presence at time of induction (if indicated), and clinically relevant risks that may include dental injury, unintentional awareness, and/or other complications. The patient and/or parent/legal guardian understand, and agree to proceed. All questions answered. documented in this encounter Plan of Treatment Not on file documented as of this encounter Visit Diagnoses Not on filedocumented in this encounter Administered Medications Inactive Administered Medications - up to 3 most recent administrations Medication Order MAR Action Action Date Dose Rate Site lidocaine (XYLOCAINE) 20 mg/mL (2 %) injection intravenous, As needed, Starting on Tue05/31/22 at 0849, Anesthesia Intra-op, Indications: Administration of Local AnesthesiaIndications:Administratio n of Local Anesthesia Given 05/31/2022 8:49 AM CDT 5 mL propofoL (DIPRIVAN) 10 mg/mL IV intravenous, As needed, Starting on Tue05/31/22 at 0849, Anesthesia Intra-op Given 05/31/2022 8:54 AM CDT 50 mg Given 05/31/2022 8:49 AM CDT 150 mg propofoL (DIPRIVAN) 10 mg/mL IV intravenous, Continuous PRN, Starting on Tue05/31/22 at 0849, Anesthesia Intra-op New Bag 05/31/2022 8:49 AM CDT 75 mcg/kg/min 53.055 mL/hr sodium chloride 0.9% infusion 30 mL/hr, intravenous, Continuous, Starting on Tue05/31/22 at 0830, Pre-Procedure (GI) Restarted 05/31/2022 8:56 AM CDT Rate/Dose Verify 05/31/2022 8:42 AM CDT 30 mL/h r New Bag 05/31/2022 8:19 AM CDT 30 mL/hr 30 mL/hr documented in this encounter Care Teams Comfort Filler Relationship Specialty Start Date End Date Mike Crump MD PCP - General Family Practice 01/16/21 documented as of this encounter
--- OUTSIDE RECORDS SUMMARY | 2024-01-30 08:13 | XMS_ITS | Encounter Summary ---
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 1 01/14/20 23 UNABLE TO FIND Take 1 [...] Procedure Name Priority Date/Time Associated Diagnosis Comments XR SHOULDER RIGHT 2 OR MORE VIEWS Schedule Routine, Read Routine (OP Routine) 11/01/2022 11:25 AM CDT Right shoulder pain, unspecified chronicity documented in this encounter Results * XR Shoulder Right [...] chronicity documented in this encounter Care Teams Alliance Consultant Relationship Specialty Start Date End Date Mike Mitchell MD PCP - General Family Practice 01/16/21 documented as of this encounter
--- OUTSIDE RECORDS SUMMARY | 2024-01-30 08:13 | XMS_ITS | Encounter Summary ---
Author Organization [facility] Address [address] [place] [address] Phone Care Team Providers Care Project Administrative Assistant Name Role Phone Mike Mitchell MD Primary Care Provider [phone] Reason for Visit * Reason Comments New Patient * Consultation (Routine) - Closed Specialty Diagnoses / Procedures Referred By Roberto moura Referred To Contact Podiatry Diagnoses Idiopathic peripheral neuropathy Crohn's disease of ileum with complication (HCC) Julia Moreno MD [address] [place] [address] Phone: tel: fax: Referral ID Status Reason Start Date Expiration Date V isits Requested Visits Authorized [id number] Closed Specialty Services Required 03/04/2022 04/03/2023 99 99 Encounter Details Date Type Department Care Team (Late st Contact Info) Description 06/16/2022 11:45 AM CDT Office Visit [facility] Surgery [address] [facility] [address] [place] [id number] Prabhjot Aranda, DPM [address] [facility] [address] [place] [address] Pain in both feet (Primary Dx); Idiopathic peripheral neuropathy; Crohn's disease of ileum with complication (HCC) [...] on file 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 If temper orthoticshelp recommend prescription orthotics we will contact you after we find out from insurance of the cover the orthotics. Otherwise see him back about 3 months documented in this encounter Progress Notes * Prabhjot Aranda DPM - 06/16/2022 11:45 AM CDT [facility] Podiatry Clinic New Patient Consult DATE OF SERVICE:06/16/2022 Kris Spence 1960 [id number] Mike Mitchell MD has requested that I see Kris Spence in clinic for evaluation of bilateral foot pain. Encounter Diagnoses Name Primary? Idiopathic peripheral neuropathy Crohn's disease of ileum with complication (HCC) Pain in both feet Yes History of Present Illness 62-year-old male here with his history idiopathic sensory neuropathy Crohn's disease GERD hypertension. Claims his feet her all the time saw a neurologist in [place] told me has neuropathy tried gabapentin he said he can still feel the pain in his feet but had made him too groggy he did want to continue complains pain in his arches the lateral side of his foot his toes and calves are extremely tight bilaterally he is tried [id number]-[id number] orthotics without much relief PCP: Mike Mitchell MD - Past Medical History Past Medical History: Diagnosis Date Pam positive Crohn's disease (CMS/HCC) (HCC) GERD (gastroesophageal reflux disease) well controlled with meds HLD (hyperlipidemia) HTN (hypertension) well controlled Liver hemangioma Low testosterone Nephrolithiasis 2018 Obesity Past Surgical History Past Surgical History: Procedure Laterality Date ABDOMINAL WALL DEFECT REPAIR 2013 reconstruction CYSTOSCOPY W/ LASER LITHOTRIPSY Right 2013, 2017 HEMANGIOMA EXCISION 2016 liver INCISIONAL HERNIA REPAIR 04/13/2021 AWR POUCHOSCOPY 11/14/2020 RESTORATIVE PROCTOCOLECTOMY 2003 J-pouch and reversed ROTATOR CUFF REPAIR Left 02/2022 VENTRAL HERNIA REPAIR 06/2009 Family History Family History Problem Relation Age of Onset Cancer Father Hypertension Father Stroke Father Abdominal Aortic Aneurysm Mother Anesthesia problems Neg Hx Social History Social History Tobacco Use Smoking status: Never Smokeless tobacco: Never Substance and Sexual Activity Drug use: Yes Types: Alcohol Comment: ~2 drinks/week Sexual activity: Defer Alcohol Use: Not At Risk (05/31/2022) AUDIT-C Frequency of Alcohol Consumption: 2-4 times a month Average Number of Drinks: 1 or 2 Frequency of Binge Drinking: Never Allergies Allergies Allergen Reactions Fruit Extracts Hives Tomatoes and oranges Iron Rash [place] Juice Hives [place] Oil Hives Sulfa (Sulfonamide Antibiotics) Hives and Rash Tomato Hives Azathioprine Other (See comments) Pancreatitis ([place]) Medications Current Outpatient Medications on File Prior to Visit Medication Sig Dispense Refill allopurinoL (ZYLOPRIM) 100 mg tablet Take 1 tablet (100 mg total) by mouth 2 (two) times a day amLODIPine (NORVASC) 5 mg tablet Take 1 tablet (5 mg total) by mouth every morning BD Luer-Yoan Syringe 3 mL 23 x 1 syringe USE 1 SYRINGE WITH NEEDLE EVERY 2 WEEKS TO INJECT TESTOSTERONE chlorthalidone 25 mg tablet Take 1 tablet (25 mg total) by mouth every morning cholecalciferol (VITAMIN D-3) 2000 unit tablet Take 1 tablet (2,000 Units total) by mouth nightly (Patient taking differently: Take 1 tablet (2,000 Units total) by mouth nightly) [address] (NexIUM) 20 mg capsule Take [...] mg total) into a venous catheter every 6 (six) weeks Infused at: CAM 5C Frequency change as of 06/30/21 r/t low IFX drug level from 06/07/21. iron fum/vit C/ascorbate sod (IRON PLUS VITAMIN C ORAL) Take 1 Dose by mouth nightly Klor-Con M20 20 mEq CR tablet Take 1 tablet (20 mEq total) by mouth 3 (three) times a day loperamide (IMODIUM) 2 mg capsule Take 2 capsules (4 mg total) by mouth 3 (three) times a day as needed for diarrhea (Patient taking differently: Take 2 capsules (4 mg total) by mouth 3 (three) timesa day as needed for diarrhea) 180 capsule 4 inmldiowfdhb-zkufzped-mfdjbg tablet Take 1 tablet by mouth every morning pregabalin (LYRICA) 50 mg capsule Take 1 capsule (50 mg total) by mouth 2 (two) times a day sulfaSALAzine (AZULFIDINE) 500 mg tablet Take 8 Tablets Daily for joint stiffness (Patient taking differently: Take 2 tablets (1,000 mg total) by mouth 4 (four) times a day Take 8 Tablets Daily for joint stiffness) 240 tablet 11 tadalafiL (ADCIRCA) 10 mg tablet Take 1 tablet (10 mg total) by mouth daily as needed for erectile dysfunction testosterone cypionate (DEPO-TESTOTERONE) 200 mg/mL injection Inject 1 mL (200 mg total) into the muscle as instructed every 14 (fourteen) days traZODone (DESYREL) 50 mg tablet Take 1 tablet (50 mg total) by mouth nightly PRN UNABLE TO FIND Take 1 each by mouth every morning Chewable magnesium vitamin b complex tablet Take 1 tablet by mouth nightly docusate sodium (COLACE) 100 mg capsule Take 1 capsule (100 mg total) by mouth 2 (two) times a day (Patient not taking: Reported on 03/04/2022) 60 capsule 0 oxyCODONE (ROXICODONE) 5 mg immediate release tablet Take 1 tablet (5 mg total) by mouth every 4 (four) hours as needed for pain (Patient not taking: Reported on 06/16/2022) 40 tablet 0 No current facility-administered medications on file prior to visit. Review of Systems: General- no fevers, chills HEENT- no changes in vision, hearing, congestion CV- no chest pain or palpitations Resp- no shortness of breath, no cough GI- no abdominal pain, nausea, vomiting, diarrhea, constipation - no pain with urination, urinary frequency or urgency MSK- no changes in strength, extremity swelling Integument- no new rashes, lumps, or bumps Heme- no easy bruising Endo- no significant changes in weight, no heat or cold intolerance Neuro- No changes in memory or balance Psych- No changes in mood Physical Exam: Ht: Wt: There is no height or weight on file to calculate BMI. There were no vitals taken for this visit. GENERAL- no acute distress, comfortable NEURO- alert and oriented, normal balance and gait PSYCH- Mood and affect appropriate HEENT- EOMs grossly normal, no scleral icterus, mucous membranes moist LYMPHATICS- no palpable lymphadenopathy CARDIAC- regular rate and rhythm RESP- nonlabored respirations GI- abdomen soft, nontender, nondistended MSK- grossly normal range of motion EXTREMITIES- extremities warm and dry, no swelling INTEGUMENT- no rashes Lower Leg Physical Exam: Vascular: Pedal pulses are palpable bilateral Edema noted bilateral. Skin temperature is warm to warm proximal to distal. Neurological: Sensory neuropathy idiopathic Dermatological: Normal skin turgor and texture is noted bilateral. No erythema, blisters, warmth, drainage is noted bilateral. No open lesions, ulcers, or rashes are noted bilateral. No ecchymosis is noted bilateral. Musculoskeletal: Leg length discrepancy right side longer left weakness invertors right ankle weakness eversion leftankle good ankle joint range of motion good muscle tone decreased dorsiflexion first metatarsophalangeal joint bilaterally tight lateral, right side weakness invertors right ankle weakness eversion left ankle no erythema no edema pes cavus foot type right leg longer left right hip higher than left weight-bearing tight lateral, right side 5/5 muscle strength is noted all 4 quadrants bilateral. Normal muscle tone is noted bilateral. No gross structural bony abnormalities are noted bilateral. I have personally reviewed the latest laboratory values and imaging: No recent results to review Assessment and Plan: 1. Idiopathic peripheral neuropathy Recommend alpha lipoic acid 300 mg b.i.d. Co Q enzyme 10 400 mg b.i.d. takes about 4 weeks to work.He can check with physician first make sure is not going to interfere with his Crohn's. He noticed after I did the ankle manipulation which temporally decompressed common peroneal nerve the head the fibula that the throbbing pain in his feet immediately went away. - Ambulatory referral to Podiatry 2. Crohn's disease of ileum with complication (HCC) - Ambulatory referral to Podiatry 3. Pain in both feet I think he has a combination of mechanical and nerve mediated pain. Will see how long the ankle manipulation last. He may have compression of the common peroneal nerve that couldrequire nerve decompression but I would recommend he try the medication first and see if that resolves his nerve mediated pain will see back about 3 months Labs or images ordered: None Follow up recommended: Return in about 3 months (around 09/16/2022) for Orthotic check. IPrabhjot DPM, have personally seen this patient and agree with the above note. Prabhjot Aranda DPM documented in this encounter Plan of Treatment Not on file documented as of this encounter Visit Diagnoses Diagnosis Pain in both feet- Primary Idiopathic peripheral neuropathy Unspecified hereditary and idiopathic peripheral neuropathy Crohn's disease of ileum with complication (HCC) documented in this encounter Historical Medications * This list may reflect changes made after this encounter. BD Luer-Yoan Syringe 3 mL 23 x 1 syringe USE 1 SYRINGE WITH NEEDLE EVERY 2 WEEKS TO INJECT TESTOSTERONE 05/27/2022 3 added in this encounter Orders Outpatient Referral Count Last Ordered Date Fir st Ordered Date AMB REFERRAL TO PODIATRY 1 06/16/2022 documented in this encounter Care Teams Project Administrative Assistant Relationship Specialty Start Date End Date Mike Mitchell MD PCP - General Family Practice 01/16/21 documented as of this encounter
--- OUTSIDE RECORDS SUMMARY | 2024-01-30 08:14 | XMS_ITS | Encounter Summary ---
Author Organization [facility] Address [address] [place] [address] Phone Care Team Providers Care Asset Management Lead Name Role Phone Mike Mitchell MD Primary Care Provider [phone] Reason for Visit * Reason Comments Follow-up Encounter Details Date Type Department Care Team (Late st Contact Info) Description 02/24/2022 2:00 PM QUENCHING MACHINE OPERATOR Office Visit [facility] Orthopaedic Surgery [address] [facility] 2[address] [place] [address] Shaan Samaniego MD [address] [facility] [address] [place] [address] Nontraumatic complete tear of left rotator cuff (Primary Dx) Social History Tobacco Use Types [...] on file Legal Sex Male 8:42 AM QUENCHING MACHINE OPERATOR Gender Identity Not on file Sexual Orientation Straight 04/01/2020 8: 42 PM QUENCHING MACHINE OPERATOR documented as of this encounter Progress Notes * Shaan Samaniego MD - 02/24/2022 2:00 PM CST POST OP VISIT INTERIM HISTORY Date of Surgery: 02/09/22 Procedure: LEFT ARTHROSCOPY SHOULDER ROTATOR CUFF REPAIR, OPEN BICEPS TENODESIS, RIGHT SHOULDER STEROID INJECTION Kris Spence returns for routine postoperative follow-up after surgery. Pain has been well-controlled. Right shoulder pain is improved. PHYSICAL EXAMINATION No acute distress, alert and oriented X 3. Incision healing is noted with no sign of infection. Deltoid Fires well. There is full symmetric range of motion of the elbow. Distal motor and sensory function is normal. REVIEW OF X-RAYS/STUDIES No new imaging was obtained today IMPRESSION/DIAGNOSIS Doing well now 2 weeks after Rotator cuff repair TREATMENT/PLAN We will continue with routine postoperative rehabilitation. Maintain sling immobilization with pendulums. We reviewed precautions and they voiced understanding. All questions were answered today. FOLLOW UP 4 weeks Shaan Samaniego MD Shoulder and Elbow Fellow Dr. Samaniego dictating using Fluency Direct. Kitchen Hand variances may occur. CHING MACHINE OPERATOR documented in this encounter Plan of Treatment Not on file documented as of this encounter Visit Diagnoses Diagnosis Nontraumatic complete tear of left rotator cuff- Primary documented in this encounter Care Teams Asset Management Lead Relationship Specialty Start Date End Date Mike Mitchell MD PCP - General Family Practice 01/16/21 documented as of this encounter
--- OUTSIDE RECORDS SUMMARY | 2024-01-30 08:14 | XMS_ITS | Encounter Summary ---
Author Organization [facility] Address [address] [place] [address] Phone Care Team Providers Care Program Paraprofessional Name Role Phone Mike Mitchell MD Primary Care Provider [phone] Reason for Visit * Episode Based Medications (Routine) - Closed Specialty Diagnoses / Procedures Referred By Contac t Referred To Contact Diagnoses Crohn's disease of ileum with complication (HCC) Procedures ME INFLIXIMAB NOT BIOSIMIL 10MG Julia Moreno MD [address] [place] [address] Phone: tel: fax: [facility] Infusion Therapy [address] [place] [address] [address] [place] [address] [place] [address] Phone: tel: fax: Referral ID Status Reason Start Date Expiration Date Visits Re quested Visits Authorized [id number] Closed 08/31/2022 09/01/2023 26 26 Encounter Details Date Type Department Care Team (Late st Contact Info) Description 04/19/2022 9:30 AM CDT Infusion [facility] Infusion Therapy [address] [place] [address] 5[address] [place] [address] [place] [address] Crohn's disease of ileum with [...] on file Legal Sex Male 8:42 AM UI DESIGNER Gender Identity Not on file Sexual Orientation Straight 04/01/2020 8: 42 PM UI DESIGNER documented as of this encounter Last Filed Vital Signs Vital Sign Reading Time Taken Comments Blood Pressure 157/93 04/19/2022 9:25 AM CDT Pulse 81 04/19/2022 9:25 AM CDT Temperature - - Respiratory Rate 22 04/19/2022 9:25 AM CDT Oxygen Saturation - - Inhaled Oxygen Concentration - - Weight - - Height - - Body Mass Index - - documented in this encounter Progress Notes * Lubna Darnell RN - 04/19/2022 9:30 AM CDT Patient is here for Remicade 1200 mg infusion. Premedicated with PO tylenol. VSS. Tolerated well. Follow up scheduled in 6 weeks. Safely discharged. Lubna Darnell RN documented in this encounter Plan of Treatment Not on file documented as of this encounter Visit Diagnoses Diagnosis Crohn's disease of ileum with complication (HCC)- Primary documented in this encounter Administered Medications Inactive Administered Medications - up to 3 most recent administrations Medication Order MAR Action Action Date Dose Rate Site acetaminophen (TYLENOL) tablet 500 mg 500 mg, oral, Once, On Tue04/19/22 at 1030, For 1 dose, Please give 30 minutes prior to infusion for infusion reaction prophylaxis.Indications:Crohn's disease of ileum with complication (HCC) Given 04/19/2022 9:30 AM CDT 500 mg inFLIXimab (REMICADE) 1,200 mg in sodium chloride 0.9% 500 mL IVPB 1,200 mg, intravenous, Administer over 2 Hours, Once, On Tue04/19/22 at 1000, For 1 dose, Infuse with [...] of ileum with complication (HCC) New Bag 04/19/2022 9:42 AM CDT 1,200 mg documented in this encounter Care Teams Program Paraprofessional Relationship Specialty Start Date End Date Mike Mitchell MD PCP - General Family Practice 01/16/21 documented as of this encounter
--- OUTSIDE RECORDS SUMMARY | 2024-01-30 08:14 | XMS_ITS | Encounter Summary ---
Author Organization [facility] Address [address] [place] [address] Phone Care Team Providers Care Gang Hemstitching Machine Operator Name Role Phone Mike Mitchell MD Primary Care Provider [phone] Encounter Details Date Type Department Care Team (Late st Contact Info) Description 03/04/2022 1:20 PM BUSINESS PROJECT MANAGER Lab [facility] Endocrinology Metabolism and Lipid [address] [facility] 5[address] [place] [address] [place] [address] Crohn's disease of ileum with [...] on file Legal Sex Male 8:42 AM BUSINESS PROJECT MANAGER Gender Identity Not on file Sexual Orientation Straight 04/01/2020 8: 42 PM BUSINESS PROJECT MANAGER documented as of this encounter Plan of Treatment Not on file documented as of this encounter Visit Diagnoses Diagnosis Crohn's disease of ileum with complication (HCC) documented in this encounter Care Teams Gang Hemstitching Machine Operator Relationship Specialty Start Date End Date Mike Mitchell MD PCP - General Family Practice 01/16/21 documented as of this encounter
--- OUTSIDE RECORDS SUMMARY | 2024-01-30 08:14 | XMS_ITS | Encounter Summary ---
Author Organization [facility] Address [address] [place] [address] Phone Care Team Providers Care Budget Accountant Name Role Phone Mike Mitchell MD Primary Care Provider [phone] Reason for Referral * Consultation (Routine) - Closed Specialty Diagnoses / Procedures Referred By Roberto moura Referred To Contact Podiatry Diagnoses Idiopathic peripheral neuropathy Crohn's disease of ileum with complication (HCC) Julia Moreno MD [address] [place] [address] Phone: tel: fax: Referral ID Status Reason Start Date Expiration Date V isits Requested Visits Authorized [id number] Closed Specialty Services Required 03/04/2022 04/03/2023 99 99 Question Answer Is this patient 10 yrs or older? Yes Please select the performing region: [facility] (All Locations) [[id number]] To provider: ERICK BURROUGHS [[id number]] # of visits: 1 T TINTER Encounter Details Date Type Department Care Team (Late st Contact Info) Description 03/04/2022 11:30 AM PAINT TINTER Office Visit [facility] Gastroenterology [address] [place] [address] [place] [address] Julia Moreno MD [address] [place] [address] Idiopathic peripheral neuropathy (Primary Dx); Crohn's disease of ileum with complication (HCC) Social History Tobacco Use Types Packs/Day Years Used Date Smoking Tobacco: Never Smokeless Tobacco: Never Tobacco Cessation:Counseling Given: Not Answered Alcohol Use Standard Drinks/Week Comments Yes 0 [...] on file Legal Sex Male 8:42 AM PAINT TINTER Gender Identity Not on file Sexual Orientation Straight 04/01/2020 8: 42 PM PAINT TINTER documented as of this encounter Last Filed Vital Signs Vital Sign Reading Time Taken Comments Blood Pressure 141/89 03/04/2022 11:18 AM PAINT TINTER Pulse 80 03/04/2022 11:18 AM PAINT TINTER Temperature 36.5 ??C (97.7 ??F) 03/04/2022 1 1:18 AM PAINT TINTER Respiratory Rate - - Oxygen Saturation - - Inhaled Oxygen Concentration - - Weight 117.3 kg (258 lb 9.6 oz) 023 11:18 AM PAINT TINTER Height 182.9 cm (6') 03/04/2022 11:18 AM PAINT TINTER Body Mass Index 35.07 03/04/2022 11:18 AM PAINT TINTER documented in this encounter Patient Instructions * Patient Instructions* Luz Anand RN - 03/04/2022 11:30 AM PAINT TINTER Return office visit is needed in 6 months We will push your pouchoscopy back until Spring/Summer Please get your annual Flu Shot A referral will be placed for Podiatry- Dr. Burroughs. You will be contacted for scheduling T TINTER T TINTER T TINTER documented in this encounter Progress Notes * Babs Szymanski MD - 03/04/2022 11:30 AM CST Reason for visit: Follow-up of Crohn's disease of the pouch HPI: Kris Spence is a 61 y.o. male with Crohn's disease of the pouch currently maintained on infliximab 10 mg/kg Q 6 weeks and sulfasalazine 2 tabs q.i.d. who returns for follow-up. He was last seen in clinic about 6 months ago and was doing well at that time. Today he reports that he missed his prior dose of Remicade that was due in January as he was scheduled to undergo rotator cuff surgery at the beginning of February. He has since undergone surgery which went well. He is scheduled for pouchoscopy could be in 2 weeks time. He has been feeling generally well but has noted some increased bowel movement frequency since missing his last dose of Remicade. He reports having bowel movements about 12 times per day without the use of Imodium. He had been using Imodium just as needed but has been primarily at home for the lastseveral weeks and just uses the restroom as needed. He typically takes Imodium when he will be out of the house for an extended period. He does complain of some increased issues with peripheral neuropathy in his feet which was recently diagnosed. He is currently on Lyrica for this. He declines flu vaccination and COVID shot today. Review of Systems: On complete review of systems, all other systems are negative. Physical Exam: BP 141/89 Pulse 80 Temp 36.5 ??C (97.7 ??F) Ht 182.9 cm (6') Wt 117.3 kg (258 lb 9.6 oz) BMI 35.07 kg/m?? General: Awake, alert, no apparent distress, well nourished HEENT: Normocephalic, atraumatic, anicteric, conjunctiva normal, no nasal drainage, oropharynx clear without erythema or exudate Pulmonary: Clear to auscultation bilaterally Cardiovascular: Regular rhythm and rate, normal S1/S2, no murmurs/rubs/gallops Abdomen: Soft, non-tender, non-distended, normoactive bowel sounds, no palpable masses, no rebound or guarding Extremities: Warm and well perfused, no cyanosis, no clubbing, no edema, left arm in sling Skin: Warm, dry, no rashes Neuro: No focal deficits Psych: Normal affect and mood Assessment/Plan: Crohn's disease of the pouch Last pouchoscopy was in November of 2020 with evidence of active disease. Since that time, his Remicade dose was increased to 10 mg/kg and dosing interval was decreased to every 6 weeks. We would liketo repeat pouchoscopy to reassess but will plan to delay this to late spring or early summer. It iscurrently scheduled in 2 weeks time, however patient missed his last dose of Remicade and would like to ensure he is actively on his regimen prior to endoscopy. He is scheduled for his Remicade dose today. He continues to take Imodium as needed and today we also discussed changes he could make to his diet to increase fiber. Joint pain/neuropathy - continue sulfasalazine 2 tabs q.i.d.. We also recommended patient see a director medical economics. He will continue his mouth denies gel as needed. Health maintenance - declined flu shot and COVID vaccination. Previously received Shingrix. We will see the patient back in clinic in 6 months. The patient was given ample opportunity to ask any questions and their questions were answered. Cosigned by Julia Moreno MD at 03/05/2022 12:32 PM PAINT TINTER T TINTER T TINTER Associated attestation - Julia Moreno MD - 03/05/2022 12:32 PM PAINT TINTER I have seen and examined the patient. I agree with the findings and plan of care as documented in the resident/fellow's note. My total encounter time on 03/04/2022 was 30 minutes which was spent in the activities documented in the note. This includes time spent prior to the visit and after the visitin direct care of the patient. This time does not include time spent in any separately reportable services. documented in this encounter Plan of Treatment Scheduled Referrals Name Type Priority Associated Diagnoses Orde r Schedule Ambulatory referral to Podiatry Outpatient Referral Routine Idiopathic peripheral neuropathy Crohn's disease of ileum with complication (HCC) Expected: 03/18/2022 (Approximate), Expires: 03/04/2023 documented as of this encounter Visit Diagnoses Diagnosis Idiopathic peripheral neuropathy- Primary Unspecified hereditary and idiopathic peripheral neuropathy Crohn's disease of ileum with complication (HCC) documented in this encounter Care Teams Budget Accountant Relationship Specialty Start Date End Date Mike Mitchell MD PCP - General Family Practice 01/16/21 documented as of this encounter
--- OUTSIDE RECORDS SUMMARY | 2024-01-30 08:14 | XMS_ITS | Encounter Summary ---
Author Organization [facility] Address [address] [place] [address] Phone Care Team Providers Care Avian Keeper Name Role Phone Mike Mitchell MD Primary Care Provider [phone] Reason for Visit * Episode Based Medications (Routine) - Closed Specialty Diagnoses / Procedures Referred By Contac t Referred To Contact Diagnoses Crohn's disease of ileum with complication (HCC) Procedures AK INFLIXIMAB NOT BIOSIMIL 10MG Julia Moreno MD [address] [place] [address] Phone: tel: fax: [facility] Infusion Therapy [facility] 5th [place] [address] [place] [address] Phone: tel: fax: Referral ID Status Reason Start Date Expiration Date Visits Re quested Visits Authorized [id number] Closed 08/31/2022 09/01/2023 Encounter Details Date Type Department Care Team (Late st Contact Info) Description 03/04/2022 1:00 PM PRICING MANAGER Infusion [facility] Infusion Therapy [facility] [address]th [place] [address] [place] [address] Crohn's disease of ileum with [...] on file Legal Sex Male 8:42 AM PRICING MANAGER Gender Identity Not on file Sexual Orientation Straight 04/01/2020 8: 42 PM PRICING MANAGER documented as of this encounter Last Filed Vital Signs Vital Sign Reading Time Taken Comments Blood Pressure 155/83 03/04/2022 1:00 PM PRICING MANAGER Pulse 78 03/04/2022 1:00 PM PRICING MANAGER Temperature - - Respiratory Rate 16 03/04/2022 1:00 PM PRICING MANAGER Oxygen Saturation - - Inhaled Oxygen Concentration - - Weight - - Height - - Body Mass Index - - documented in this encounter Progress Notes * Perez Hanks RN - 03/04/2022 1:00 PM CST Remicade infused per protocol. No S/S of adverse reaction. VSS. Follow up scheduled. Jin Hanks RN ING MANAGER documented in this encounter Plan of Treatment Not on file documented as of this encounter Procedures Procedure Name Priority Date/Time Associated Diagnosis Comments CBC WITH AUTO DIFFERENTIAL Routine 03/04/2022 12:55 PM PRICING MANAGER Crohn's disease of ileum with complication (HCC) HEPATIC FUNCTION PANEL Routine 03/04/2022 12:55 PM PRICING MANAGER Crohn's disease of ileum with complication (HCC) documented in this encounter Results * CBC with auto differential (03/04/2022 12:55 PM PRICING MANAGER) White Blood Count 6.7 3.6 - 11.2 K/uL [facility] RBC 4.78 4.06 - 5.63 M/uL [facility] Hemoglobin 14.9 13.0 - 17.5 g/dL [facility] Hematocrit 43.5 40.7 - 50.3 % [facility] MCV 91.1 80.0 - 97.6 fL [facility] MCH 31.1 26.7 - 33.7 pg [facility] MCHC 34.2 32.7 - 35.5 g/dL [facility] RBC Dist Width 12.5 12.3 - 17.0 % [facility] Platelet Count 222 140 - 440 K/uL [facility] MPV 8.6 6.8 - 10.4 fL [facility] Neutrophils % 65.2 38.7 - 74.5 % [facility] Lymphocyte % 23.1 20.0 - 54.3 % [facility] Monocytes % 10.3 4.3 - 13.5 % [facility] Eosinophils % 1.1 0.0 - 6.0 % [facility] Basophil % 0.3 0.0 - 3.0 % [facility] Absolute Neutrophil 4.3 1.8 - 6.6 K/uL [facility] Absolute Lymphocyte 1.5 0.8 - 3.3 K/uL [facility] Absolute Monocyte 0.7 0.2 - 1.2 K/uL [facility] Absolute Eosinophil 0.1 0.0 - 0.5 K/uL [facility] Absolute Basophil 0.0 0.0 - 0.2 K/uL [facility] Nucleated RBC % 0.1 0.0 - 0.4 /100 WBC [facility] Blood 03/04/2022 12:5 5 PM PRICING MANAGER 03/04/2022 2:24 PM PRICING MANAGER us Julia Moreno MD LAB BLOOD ORDERABLE S Final Result [facility] * Hepatic function panel (03/04/2022 12:55 PM PRICING MANAGER) Direct Bilirubin 0.07 0.00 - 0.30 mg/dL [facility] AST (SGOT) 23 11 - 47 IU/L [facility] ALT (SGPT) 30 6 - 53 IU/L [facility] Alk Phos, Total 62 35 - 129 IU/L [facility] Albumin 4.5 3.5 - 5.2 g/dL [facility] Total Bilirubin 0.26 0.20 - 1.40 mg/dL [facility] Total Protein 7.3 6.1 - 8.4 g/dL [facility] Blood 03/04/2022 12:5 5 PM PRICING MANAGER 03/04/2022 2:24 PM PRICING MANAGER us Julia Moreno MD LAB BLOOD ORDERABLE S Final Result [facility] documented [...] Administer over 2 Hours, Once, On Roxy 03/04/22 at 1330, For 1 dose, Infuse with filter tubing [...] Use 1.2 micron filter or less, low sorbing.Indications:Crohn's disease of ileum with complication (HCC) New Bag 03/04/2022 1:00 PM PRICING MANAGER 1,200 mg documented in this encounter Orders Medications Ordered That Po ht Not Have Been Administered Count Last Ordered Date First Ordered Date inFLIXimab (REMICADE) 1,200 mg in sodium chloride 0.9% 500 mL IVPB 1 03/04/2022 documented in this encounter Care Teams Avian Keeper Relationship Specialty Start Date End Date Mike Mitchell MD PCP - General Family Practice 01/16/21 documented as of this encounter
--- OUTSIDE RECORDS SUMMARY | 2024-01-30 08:14 | XMS_ITS | Encounter Summary ---
Author Organization [facility] Address [address] [place] [address] Phone Care Team Providers Care Field Machinist Name Role Phone Mike Mitchell MD Primary Care Provider [phone] Reason for Visit * Reason Comments Follow-up Encounter Details Date Type Department Care Team (Late st Contact Info) Description 03/22/2022 1:00 PM ELECTRIC BLANKET WIRER Office Visit [facility] Orthopaedic Surgery [address] [facility] [address] [place] [address] Shaan Samaniego MD [address] [facility] [address] [place] [address] Complete tear of left rotator cuff, unspecified whether traumatic (Primary Dx); Left shoulder pain, unspecified chronicity; S/P shoulder surgery Social History Tobacco Use Types Packs/Day Years [...] file Legal Sex Male 8:42 AM ELECTRIC BLANKET WIRER Gender Identity Not on file Sexual Orientation Straight 04/01/2020 8: 42 PM ELECTRIC BLANKET WIRER documented as of this encounter Progress Notes * Shaan Samaniego MD - 03/22/2022 1:00 PM CST POST OP VISIT INTERIM HISTORY [...] no sign of infection. Deltoid Fires well. Passive forward elevation is to 140??. External rotation at the side is to 60??. Distal motor and sensory function is normal. REVIEW OF X-RAYS/STUDIES No new imaging was obtained IMPRESSION/DIAGNOSIS Doing well now 6 weeks after Rotator cuff repair TREATMENT/PLAN We will continue with routine postoperative rehabilitation. We will begin formal physical therapy for range of motion. We reviewed precautions and they voiced understanding. All questions were answered today. FOLLOW UP 6 weeks Shaan Samaniego MD Assisstant Professor [facility] Dr Samaniego dictating via MModal. Protection Mgr variances may occur. TRIC BLANKET WIRER documented in this encounter Plan of Treatment Not on file documented as of this encounter Visit Diagnoses Diagnosis Complete tear of left rotator cuff, unspecified whether traumatic- Primary Left shoulder pain, unspecified chronicity S/P shoulder surgery Other postprocedural status documented in this encounter Care Teams Field Machinist Relationship Specialty Start Date End Date Mike Mitchell MD PCP - General Family Practice 01/16/21 documented as of this encounter
--- OUTSIDE RECORDS SUMMARY | 2024-01-30 08:15 | XMS_ITS | Encounter Summary ---
Author Organization [facility] Healthcare Address [address] [place] [place] [address] Care Team Providers Care Bevel Operator Name Role Phone Mike Mitchell MD Primary Care Provider [phone] Reason for Visit * Auth/Cert Specialty Diagnoses / Procedures Referred By Contac t Referred To Contact Diagnoses Nontraumatic complete tear of left rotator cuff Nontraumatic incomplete tear of right rotator cuff Nontraumatic complete tear of left rotator cuff [M75.122] Nontraumatic incomplete tear of right rotator cuff [M75.111] Procedures UT SURGICAL ARTHROSCOPY SHOULDER W/ROTATOR CUFF RPR left ARTHROSCOPY SHOULDER ROTATOR CUFF REPAIR left possible open TENODESIS - BICEPS right subacromial INJECTION STEROID - SHOULDER Referral ID Status Reason Start Date Expiration Date Visits Re quested Visits Authorized [id number] 1 1 Encounter Details Date Type Department Care Team (Late st Contact Info) Description 02/09/2022 12:11 PM MOUNTER SOUSAPHONES Anesthesia Event [facility] [address] [place] [id number] Hayden Zaldivar MD [address] [place] [address] Katerin Simeon NP [address] [facility] [id number] [place] [address] Anesthesia Record Procedure Summary Procedure Name Responsible Anesthesiologist Anesthesia Start Time Anesthesia Stop Time LEFT ARTHROSCOPY SHOULDER ROTATOR CUFF REPAIR, OPEN BICEPS TENODESIS, RIGHT SHOULDER STEROID INJECTION (Left: Shoulder) Hayden Zaldivar MD 02/09/22 1211 02/09/22 1428 Events Date Time Event Comment 02/09/2022 1114 1208 Time out - Regional 1208 Face Time 1208 Start Supplemental O2 1208 An Block Induction The patie nt was reevaluated immediately before moderate or deep sedation and before anesthesia induction. 1208 Block Placed 1211 In Room 1211 AN Equip Check 1211 An Start 1213 An Start Data 1217 An Induction The patient was reevaluated immediately before moderate or deep sedation use and before anesthesia induction. 1219 An Intubation 1221 Anesthesia Ready 1230 Proc Start 1247 Incision Start 1409 Proc Fin 1415 An Extubation 1422 Out of Room 1422 an stop data 1428 Handoff to RN I completed my handoff [...] disposition at the time of handoff: PACU 1428 An Stop Meds Name Total ceFAZolin (ANCEF) 2,000 mg/50 mL in dext beth (premix) 2,000 mg 2,000 mg scopolamine patch 72 hour 1 patch 0 patc h sodium chloride 0.9% flush 0.5-20 mL 0 m L fentaNYL PF 100 mcg midazolam 2 mg/2 mL 2 mg propofol 200 mg bupivacaine 0.5 % PF 30 mL Lido 1% Infilt 5 mL lidocaine 2 % PF 5 mL rocuronium 40 mg neostigmine syringe 1 mg/mL 2.5 mg glycopyrrolate 0.4 mg ondansetron PF 4 mg dexamethasone 4 mg/ml 8 mg ketorolac 30 mg/mL 30 mg Lactated Ringer's (LR) infusion 1,200 mL * Agents Name O2 N2O Air Sevoflurane Inspired Sevoflurane * Blood No blood administrations on file. Lines, Drains, and Airways Type Details Placement Removal RETIRED Surgical Site 04/13/21; 1239; Abdomen; 01/10/24 (Retired LDA, Removed/Completed by [employer] with LDA Utility); 1213 (Retired LDA, Removed/Completed by [employer] with LDA Utility) 04/13/21 1239 by Ashanti Obregon RN 01/10/24 1213 by Discharge Provider, Automatic Peripheral IV Placement Date: 02/09/22; Placement Time: 1100; Orientation: Right; Location: Hand; Site Prep: Chlorhexidine; Insertion Attempts: 2; Patient Tolerance: Tolerated well; Removal Date: 02/09/22; Removal Time: 1600 02/09/22 1100 by Sybil Vazquez RN 02/09/22 1600 by Harry Aleman RN PNB catheter Placement Date: 02/09/22; Placement Time: 1209 (created via procedure documentation); Pt Tolerance: brachial plexus - interscalene; Removal Date: Injectable, Topical, None; Removal Time: Tolerated well; 01/13/23; 1022 (removed via procedure documentation) 02/09/22 1209 by Hayden Zaldivar MD 01/13/23 1022 by Carmine Crystal MD ETT Placement Date: 02/09/22; Placement Time: 1246 (created via procedure documentation); Mask Ventilation: 1; Technique: Video laryngoscopy; Type: ETT - single; Single Lumen Tube Size: 8 mm; Cuffed: Yes; Laryngoscope: Sol; Blade Size: 4; Location: Oral; Insertion Attempts: 1; Placement Verification: Auscultation; Removal Date: 02/09/22; Removal Time: 1415 02/09/22 1246 by Emiliano Harmon CRNA 02/09/22 1415 by Emiliano Harmon CRNA RETIRED Surgical Site 02/09/22; 1303; Right; Shoulder; 02/09/22; 1636 02/09/22 1303 by Bina Matson RN 02/09/22 1636 by Harry Aleman, HONG RETIRED Surgical Site 02/09/22; 1304; Le ft; Shoulder; 02/09/22; 1636 02/09/22 1304 by Bina Matson RN 02/09/22 1636 by Harry Aleman RN documented in this encounter Social History [...] on file Legal Sex Male 8:42 AM MOUNTER SOUSAPHONES Gender Identity Not on file Sexual Orientation Straight 04/01/2020 8: 42 PM MOUNTER SOUSAPHONES documented as of this encounter OR Notes * Anesthesia Postprocedure Evaluation - Latrice Webb MD - 02/09/2022 3:08 PM CST Patient: Kris Spence Procedure Summary Date: 02/09/22 Room / Location: [facility] OPERATING ROOM 4 / [facility] OPERATING ROOM Anesthesia Start: 1211 Anesthesia Stop: 1428 Procedure: LEFT ARTHROSCOPY SHOULDER ROTATOR CUFF REPAIR, OPEN BICEPS TENODESIS, RIGHT SHOULDER STEROID INJECTION (Left: Shoulder) Diagnosis: Nontraumatic complete tear of left rotator cuff Nontraumatic incomplete tear of right rotator cuff (Nontraumatic complete tear of left rotator cuff [M75.122]) (Nontraumatic incomplete tear of right rotator cuff [M75.111]) Providers: Shaan Samaniego MD Responsible Provider: Hayden Zaldivar MD Anesthesia Type: general ASA Status: 2 Anesthesia Type: general Last vitals BP 156/97 Pulse 76 Temp 36.6 ??C (97.9 ??F) (Temporal) Resp 18 SpO2 91% Anesthesia Post Evaluation Patient location during evaluation: PACU Patient participation: complete - patient participated Level of consciousness: fully awake Pain score: 0 Pain management: adequate Airway patency: adequate Evidence of recall: no Cardiovascular status: hemodynamically stable and acceptable Respiratory status: acceptable and room air Hydration status: acceptable Pt is: normothermic Nausea/Vomiting status: none Comments: Pt c/o bilateral eye irritation upon waking up. No obvious corneal abrasion on exam. But ordered erythromycin ointment for patient to go home with. Instructed pt to use it and/or eye drops like visine for the next few days. If it doesn't improve in the next few days, he can call us back. No notable events documented. TER SOUSAPHONES * Anesthesia Procedure Notes - Emiliano Harmon CRNA - 02/09/2022 12:45 PM MOUNTER SOUSAPHONES Associated Order(s): Airway Airway Patient location: OR Urgency: elective Indications for airway management: anesthesia Difficult airway: no Emergent airway documentation: Risks and benefits discussed: yes Consent obtained: yes Consent given by: patient Airway prep: Preoxygenated: yes Patient position: sniffing MILS maintained throughout: yes Mask difficulty assessment: 1 - vent by mask Spontaneous ventilation during airway: present Sedation level during airway: GA Final airway details: Final airway type: endotracheal airway Tube type: ETT ETT size: 8.0 mm Cuffed: yes Technique used for successful ETT placement: video laryngoscopy Insertion site: oral Blade type: Sol Video blade type: Lombardi Blade size: 4 Cormack-Lehane (video): grade I - full view of glottis Cuff volume: 8 mL Cuff inflated with: air ETT to gums: 21 cm Placement verified by: auscultation Airway secured with: silk tape Number of attempts: 1 Ventilation between attempts: none TER SOUSAPHONES TER SOUSAPHONES * Anesthesia Procedure Notes - Hayden Zaldivar MD - 02/09/2022 12:09 PM CSTAssociated Order(s): Peripheral Block Peripheral Block Patient location during procedure: pre-op holding Reason for block: post-op pain management per surgeon request Block type: single shot Laterality: left Block type: intercostobrachial nerve block Procedure prep: Preprocedure checklist: patient identified, procedure contraindications assessed, site marked, procedure consent, surgical consent, IV checked, risks, benefits and alternatives discussed, monitors and equipment checked and timeout performed Patient position: sitting Procedure performed while patient: sedate with meaningful contact Monitoring: oximetry Supplemental O2: nasal cannula Prep solution: chlorhexidine/alcohol Peripheral nerve block: Technique: landmark(s) Needle type: short-bevel Needle gauge: 25G. Needle length: 50 mm Injection assessment: injection made incrementally with constant monitoring, negative aspiration for heme, no paresthesias noted, normal resistance to injection and see flowsheet for medication details Assessment: Block success: full evaluation pending Events: patient tolerated procedure well with no complications TER SOUSAPHONES * Anesthesia Procedure Notes - Hayden Zaldivar MD - 02/09/2022 12:09 PM CSTAssociated Order(s): Peripheral Block Peripheral Block Patient location during procedure: pre-op holding Reason for block: post-op pain management per surgeon request Ultrasound image in chart or stored: yes Block type: catheter continuous infusion Laterality: left Block type: brachial plexus - interscalene Procedure [...] patient tolerated procedure well with no complications TER SOUSAPHONES * Anesthesia Preprocedure Evaluation - Hayden Zaldivar MD - 01/25/2022 2:24 PM CST Images from the original note were not included. [facility] Planning Preoperative Evaluation Record Evaluation type/location: [facility]AP from [facility] Planned procedure site: [facility] Date: 01/25/22 NOTE: This note represents a preoperative evaluation initiated via telephone interview. NO PHYSICALEXAM was performed at the time of initial assessment. A physical exam may be added to this note anddocumented below. Anesthesia Evaluation Kris Spence is a 61 y.o. male Procedure(s): left ARTHROSCOPY SHOULDER ROTATOR CUFF REPAIR left possible open TENODESIS - BICEPS right subacromial INJECTION STEROID - SHOULDER Pre-Op Diagnosis Codes: * Nontraumatic complete tear of left rotator cuff [M75.122] * Nontraumatic incomplete tear of right rotator cuff [M75.111] HISTORY HPI 61 yea old male being evaluated for left arthroscopy shoulder rotator cuff repair Past Medical History Information obtained from: patient and chart. Neurological Pertinent negatives: seizures; neuromuscular disease; CVA/stroke; TIA; CEA; ICA stenosis; dementia/mild cognitive impairment; psychiatric history and carotid artery stent Cardiovascular + Hypertension Hypertension year diagnosed: 2014. Typical systolic BP - 130 Typical diastolic BP - 80 Pertinent negatives: CAD ; [place] ; CABG ; valvular heart disease; valve replacement; atrial fibrillation; arrhythmia; pacemaker/ICD; PVD; DVT/PE; negative for CHF; drug-eluting stent(s); bare metal stent(s) and coronary angioplasty Respiratory Pertinent negatives: COPD; asthma; sleep apnea (CYNDEE) (states negative sleep study in 2012?); pulmonary hypertension; no O2 use outside the hospital and non-smoker Hepatic / Heme + History of Pam positive (anti E) - not difficult cross-match Pertinent negatives: liver disease; history of anemia (last H/H 15.6) and history of thrombocytopenia Comments: Hx of hepatic hemangioma s/p excision 2016 Gastrointestinal + GERD - on daily therapy. Asymptomatic. + Hiatal hernia Renal / + Nephrolithiasis (s/p lithotripsy) Pertinent negatives: renal disease and dialysis Musculoskeletal/Pain + Chronic pain (left shoulder) Pertinent negatives: chronic opioid use and previous treatment for opioid use disorder Endocrine / Other + Obesity (BMI >30) (BMI 34.74) + Rheumatological disease (remicade infusion 12/07/21 Pouchoscopy 11/14/20) - Crohn's disease. + Pancreatitis (medicine induced 2001) - acute. Pertinent negatives: diabetes mellitus; thyroid disease; cancer history and transplanted organ Functional Capacity Functional capacity: 4-6 METs Comments: Patient would be able to climb 2 flights of stairs at moderate pace without SOB or CP. Review of Systems + previous transfusion (5 units in 1988 for bleeding ulcer) + chronic pain (left shoulder) + vision loss (glasses) + diarrhea [...] MD Additional comments: Kris Spence is a 61 y.o. male who is being evaluated prior to undergoing a low cardiac risk surgery. Revised Cardiac Risk Index factors are (none) for a total RCRI of 0 out of 6. Functional capacity is 4-6 METs. States he is very hairy and had issues with gambling monitor reading if they do shave or remove hair prior to placing monitor pads The patient has a history of positive indirect Pam and is having a surgery where blood antibodies are not pertinent to the planned surgery. The antibody type is Anti E. [facility], anticipated cross-match difficulty is not difficult. Based on this information, we willinitiate the following blood plan for the day of surgery: No type and screen needed. For day of surgery blood bank specimen availability, the plan is that the no T & S cross needed. Did not order scopolamine patch d/t urinary retention in setting of kidney stones , was on Flomax in past. PRELIMINARY: Obstructive sleep apnea (CYNDEE) screening status is STOP-Bang=5 suggesting HIGH RISK forOSA. Blood bank needs for day of procedure: No type and screen needed Pending labs/tests include: N/A This assessment was performed via telephone. Therefore the physical exam has been deferred to the day of surgery team. The patient was provided with preoperative instructions for their medications. The patient was instructed to shower/bathe the night prior and the morning of the planned procedure using an antibacterial soap. Patient instructions were provided by telephone and electronically per [facility]. Patient verbalized understanding of preoperative plan. Preoperative evaluation performed by Katerin Simeon NP on 01/25/22 at 2:25 PM. TPAP assessment complete. Patient Active Problem List Diagnosis ??? Recurrent incisional hernia ??? Crohn's disease of ileum with complication (HCC) ??? Gastrointestinal hemorrhage ??? Nontraumatic complete tear of left rotator cuff ??? Nontraumatic incomplete tear of right rotator cuff Past Medical History: Diagnosis Date ??? Pam positive ??? GERD (gastroesophageal reflux disease) ??? HTN (hypertension) ??? Liver hemangioma ??? Nephrolithiasis ??? Obesity Past Surgical History: Procedure Laterality Date ??? ABDOMINAL WALL DEFECT REPAIR 2013 reconstruction ??? CYSTOSCOPY W/ LASER LITHOTRIPSY Right 2013 2017 ??? HEMANGIOMA EXCISION 2016 liver ??? INCISIONAL HERNIA REPAIR 04/13/2021 AWR ??? POUCHOSCOPY 11/14/2020 ??? RESTORATIVE PROCTOCOLECTOMY 2002 J-pouch and reversed ??? VENTRAL HERNIA REPAIR 06/2009 Allergies Allergen Reactions ??? Fruit Extracts Hives Tomatoes and oranges ??? Iron Rash ??? [place]ula Juice Hives ??? [place] Oil Hives ??? Sulfa (Sulfonamide Antibiotics) Hives and Rash ??? Tomato Hives ??? Azathioprine Other (See comments) pancreatitis Med List Status: Nurse Complete Set By: Mimi Dietrich RN at 01/25/2022 8:58 AM Taking? Last Dose Start Date End Date Provider allopurinoL (ZYLOPRIM) 100 mg tablet 01/25/2022 11/29/19 -- ProviderAmie MD amLODIPine (NORVASC) 5 mg tablet 01/25/2022 07/20/21 -- Amie Odonnell MD chlorthalidone 25 mg tablet 01/25/2022 11/20/19 -- Amie Odonnell MD cholecalciferol (VITAMIN D-3) 2000 unit tablet 01/24/2022 01/04/22 -- Julia Moreno MD Take 1 tablet (2,000 Units total) by mouth nightly Patient taking differently: Take 2,000 Units by mouth nightly Notes: DX Code Needed . esomeprazole DR (NexIUM) 20 mg capsule 01/25/2022 02/05/20 -- Amie Odonnell MD Notes: 2x/day fenofibrate nanocrystallized (TRICOR) 48 mg tablet 01/24/2022 -- -- Amie Odonnell MD ibuprofen 200 mg tab/cap 01/24/2022 -- -- Amie Odonnell MD inFLIXimab (REMICADE) 100 mg injection -- 01/12/21 -- Julia Moreno MD iron fum/vit C/ascorbate sod (IRON PLUS VITAMIN C ORAL) 01/24/2022 -- -- Amie Odonnell MD Klor-Con M20 20 mEq CR tablet 01/25/2022 01/12/20 -- Amie Odonnell MD loperamide (IMODIUM) 2 mg capsule Past Week 01/18/22 -- Julia Moreno MD Take 2 capsules (4 mg total) by mouth 3 (three) times a day as needed for diarrhea Patient taking differently: Take 4 mg by mouth 3 (three) times a day as needed for diarrhea xbekxpqafvdm-tgckcget-kdyspa tablet 01/25/2022 -- -- Amie Odonnell MD pregabalin (LYRICA) 50 mg capsule 01/25/2022 01/11/22 -- Amie Odonnell MD sulfaSALAzine (AZULFIDINE) 500 mg tablet 01/25/2022 09/02/21 -- Julia Moreno MD Take 8 Tablets Daily for joint stiffness Patient taking differently: Take 1,000 mg by mouth 4 (four) times a day Take 8 Tablets Daily for joint stiffness Notes: NEW PRESCRIPTION WITH NEW DOSE tadalafiL (ADCIRCA) 10 mg tablet Past Month 01/12/22 -- Amie Odonnell MD testosterone cypionate (DEPO-TESTOTERONE) 200 mg/mL injection 01/24/2022 10/07/20 -- Amie Odonnell MD traZODone (DESYREL) 50 mg tablet 01/24/2022 01/11/22 -- Amie Odonnell MD UNABLE TO FIND 01/25/2022 -- -- Amie Odonnell MD vitamin b complex tablet 01/24/2022 -- -- Amie Odonnell MD -- Patient not taking: -- -- Patient not taking: -- -- No current facility-administered medications for this encounter. Current Outpatient Medications: ??? allopurinoL (ZYLOPRIM) 100 mg tablet ??? amLODIPine (NORVASC) 5 mg tablet ??? chlorthalidone 25 mg tablet ??? cholecalciferol (VITAMIN D-3) 2000 unit tablet ??? esomeprazole DR (NexIUM) 20 mg capsule ??? fenofibrate nanocrystallized (TRICOR) 48 mg tablet ??? ibuprofen 200 mg tab/cap ??? inFLIXimab (REMICADE) 100 mg injection ??? iron fum/vit C/ascorbate sod (IRON PLUS VITAMIN C ORAL) ??? Klor-Con M20 20 mEq CR tablet ??? loperamide (IMODIUM) 2 mg capsule ??? ksdwwifuyhyy-pavdtlri-umbfjt tablet ??? pregabalin (LYRICA) 50 mg capsule ??? sulfaSALAzine (AZULFIDINE) 500 mg tablet ??? tadalafiL (ADCIRCA) 10 mg tablet ??? testosterone cypionate (DEPO-TESTOTERONE) 200 mg/mL injection ??? traZODone (DESYREL) 50 mg tablet ??? UNABLE TO FIND ??? vitamin b complex tablet Social History Tobacco Use Smoking Status Never Smokeless Tobacco Never Alcohol Use: Heavy Drinker ??? Frequency of Alcohol Consumption: 2-3 times a week ??? Average Number of Drinks: 3 or 4 ??? Frequency of Binge Drinking: Never Substance and Sexual Activity Drug Use Not Currently Family History Problem Relation Age of Onset ??? Cancer Father ??? Hypertension Father ??? Stroke Father ??? Abdominal Aortic Aneurysm Mother ??? Anesthesia problems Neg Hx There were no vitals filed for this visit. PT: No results found for requested labs within last 720 hours. INR: No results found for requested labs within last 720 hours. APTT: No results found for requested labs within last 720 hours. Hgb A1C: No results found for requested labs within last 720 hours. CBC RBC: No results found for requested labs within last 720 hours. RDW: No results found for requested labs within last 720 hours. MCHC: No results found for requested labs within last 720 hours. MCH: No results found for requested labs within last 720 hours. MCV: No results found for requested labs within last 720 hours. Hct: No results found for requested labs within last 720 hours. Hgb: No results found for requested labs within last 720 hours. WBC: No results found for requested labs within last 720 hours. MPV: No results found for requested labs within last 720 hours. Platelets: No results found for requested labs within last 720 hours. RDW CV: No results found for requested labs within last 720 hours. RDW Sd: No results found for requested labs within last 720 hours. BMP Glucose: No results found for requested labs within last 720 hours. Calcium: No results found for requested labs within last 720 hours. Sodium: No results found for requested labs within last 720 hours. Potassium: No results found for requested labs within last 720 hours. CO2: No results found for requested labs within last 720 hours. Chloride: No results found for requested labs within last 720 hours. BUN: No results found for requested labs within last 720 hours. Creatinine: No results found for requested labs within last 720 hours. Miguel Angel index score: 100 DOS Physical Exam Medical history, medications, and allergies reviewed. Attestation: This PAT evaluation Airway Exam: Mallampati: II Cervical ROM: FROM Cardiovascular Exam: Rate: regular Rhythm: regular Pulmonary Exam: LCTA, bilat Anesthesia Plan ASA 2 My patient is approved for the Anesthesia Controlled Medication protocol when under care of a COTTRELL OPERATOR Planned anesthesia: General Informed Consent: Anesthesia plan and risks discussed with patient. Consent and Attending signature: I and/or my designee have discussed the anesthesia plan, benefits, possible alternatives, parental presence at time of induction (if indicated), and clinically relevant risks that may include dental injury, unintentional awareness, and/or other complications. The patient and/or parent/legal guardian understand, and agree to proceed. All questions answered. TER SOUSAPHONES TER SOUSAPHONES TER SOUSAPHONES documented in this encounter Plan of Treatment Not on file documented as of this encounter Procedures Procedure Name Priority Date/Time Associated Diagnosis Comments UT AN PROCEDURE PLACEHOLDER Routine 02/09/2022 12:45 PM MOUNTER SOUSAPHONES UT AN ELECTIVE ENDOTRACHEAL AIRWAY Routine 02/09/2022 12:45 PM MOUNTER SOUSAPHONES UT AN PROCEDURE PLACEHOLDER Routine 02/09/2022 12:09 PM MOUNTER SOUSAPHONES UT AN PROCEDURE PLACEHOLDER Routine 02/09/2022 12:09 PM MOUNTER SOUSAPHONES BW IP ANE LDA PERIPHERAL NERVE CATHETER Routine 02/09/2022 12:09 PM MOUNTER SOUSAPHONES documented in this encounter Results * UT AN ELECTIVE ENDOTRACHEAL AIRWAY, UT AN PROCEDURE PLACEHOLDER (02/09/2022 12:45 PM MOUNTER SOUSAPHONES) Narrative Emiliano Harmon CRNA - 02/09/2022 12:45 PM MOUNTER SOUSAPHONES Emiliano Harmon CRNA ? 02/09/2022 12:47 PM Airway Patient location: OR Urgency: elective Indications for airway management: anesthesia Difficult airway: no Emergent airway documentation: Risks and benefits discussed: yes Consent obtained: yes Consent given by: patient Airway prep: Preoxygenated: yes Patient position: sniffing MILS maintained throughout: yes Mask difficulty assessment: 1 - vent by mask Spontaneous ventilation during airway: present Sedation level during airway: GA Final airway details: Final airway type: endotracheal airway Tube type: ETT ETT size: 8.0 mm Cuffed: yes Technique used for successful ETT placement: video laryngoscopy Insertion site: oral Blade type: Sol Video blade type: Lombardi Blade size: 4 Cormack-Lehane (video): grade I - full view of glottis Cuff volume: 8 mL Cuff inflated with: air ETT to gums: 21 cm Placement verified by: auscultation Airway secured with: silk tape Number of attempts: 1 Ventilation between attempts: none us Hayden Zaldivar MD ANESTHESIA ORDERABLES Ed ited Result - Final * UT AN PROCEDURE PLACEHOLDER (02/09/2022 12:09 PM MOUNTER SOUSAPHONES) Narrative Hayden Zaldivar MD - 02/09/2022 12:09 PM MOUNTER SOUSAPHONES Hayden Zaldivar MD ? 02/09/2022 12:09 PM Peripheral Block Patient location during procedure: pre-op holding Reason for block: post-op pain management per surgeon request Block type: single shot Laterality: left Block type: intercostobrachial nerve block Procedure prep: Preprocedure checklist: patient identified, procedure contraindications assessed, site marked, procedure consent, surgical consent, IV checked, risks, benefits and alternatives discussed, monitors and equipment checked and timeout performed Patient position: sitting Procedure performed while patient: sedate with meaningful contact Monitoring: oximetry Supplemental O2: nasal cannula Prep solution: chlorhexidine/alcohol Peripheral nerve block: Technique: landmark(s) Needle type: short-bevel Needle gauge: 25G. Needle length: 50 mm Injection assessment: injection made incrementally with constant monitoring, negative aspiration for heme, no paresthesias noted, normal resistance to injection and see flowsheet for medication details Assessment: Block success: full evaluation pending Events: patient tolerated procedure well with no complications Hayden Zaldivar MD ANESTHESIA ORDERABLES Fi nal Result * BW IP ANE LDA PERIPHERAL NERVE CATHETER, UT AN PROCEDURE PLACEHOLDER (02/09/2022 12:09 PM MOUNTER SOUSAPHONES) Narrative Hayden Zaldivar MD - 02/09/2022 12:09 PM MOUN[facility] SOUS[facility]ONES Hayden Zaldivar MD ? 02/09/2022 12:09 PM Peripheral Block Patient location during procedure: pre-op holding Reason for block: post-op pain management per surgeon request Ultrasound image in chart or stored: yes Block type: catheter continuous infusion Laterality: left Block type: brachial plexus - interscalene Procedure [...] patient tolerated procedure well with no complications Hayden Zaldivar MD ANESTHESIA ORDERABLES Fi nal Result documented in this encounter Visit Diagnoses Not on filedocumented in this encounter Administered Medications Inactive Administered Medications - up to 3 most recent administrations Medication Order MAR Action Action Date Dose Rate Site bupivacaine (MARCAINE) 0.5 % (5 mg/mL) preservative free injection perineural, As needed, Starting on Tue02/09/22 at 1208, Anesthesia Intra-op Given 02/09/2022 12:08 PM MOUNTER SOUSAPHONES 30 mL ceFAZolin (ANCEF) 2,000 mg/50 mL in dextrose (premix) 2,000 mg 2,000 mg, intravenous, at 100 mL/hr, Administer over 30 Minutes, Once, On Tue02/09/22 at 1045, For 1 dose, Pre-Op, Administer within 60 minutes of incision. Duplex bag - activate before hanging. , Indications: Prophylaxis, SurgicalIndications:Prophylaxis , Surgical Given 02/09/2022 12:14 PM MOUNTER SOUSAPHONES 2,000 mg dexAMETHasone (DECADRON) 4 mg/mL injection intravenous, Administer over 2 Minutes, As needed, Starting on Tue02/09/22 at 1217, Anesthesia Intra-op Given 02/09/2022 12:17 PM MOUNTER SOUSAPHONES 8 mg fentaNYL (SUBLIMAZE) preservative free injection intravenous, As needed, Starting on Tue02/09/22 at 1208, Anesthesia Intra-op Given 02/09/2022 12:08 PM MOUNTER SOUSAPHONES 100 mcg glycopyrrolate (ROBINUL) injection intravenous, Administer over 1 Minutes, As needed, Starting on Tue02/09/22 at 1410, Anesthesia Intra-op Given 02/09/2022 2:10 PM MOUNTER SOUSAPHONES 0.4 mg ketorolac (TORADOL) 30 mg/mL (1 mL) injection intravenous, As needed, Starting on Tue02/09/22 at 1403, Anesthesia Intra-op Given 02/09/2022 2:03 PM MOUNTER SOUSAPHONES 30 mg Lactated Ringer's (LR) infusion 30 mL/hr, intravenous, Continuous, Starting on Tue02/09/22 at 1045, Pre-Op, Use a 500 ml bag for End Stage Renal Disease Patients New Bag 02/09/2022 1:20 PM MOUN[facility] S[facility]ON[facility] Rate/Dose Verify 02/09/2022 12:11 PM MOUNTER SOUSAPHONES 30 mL/ hr New Bag 02/09/2022 11:02 AM MOUNTER SOUSAPHONES 30 mL/hr 30 mL/hr lidocaine (XYLOCAINE) 10 mg/mL (1 %) injection infiltration, As needed, Starting on Tue02/09/22 at 1208, Anesthesia Intra-op, Indications: Administration of Local AnesthesiaIndications:Administration of Local Anesthesia Given 02/09/2022 12:08 PM MOUNTER SOUSAPHONES 5 mL lidocaine (XYLOCAINE) 20 mg/mL (2 %) preservative free injection intravenous, As needed, Starting on Tue02/09/22 at 1217, Anesthesia Intra-op Given 02/09/2022 12:17 PM MOUNTER SOUSAPHONES 5 mL midazolam (VERSED) 1 mg/mL injection intravenous, As needed, Starting on Tue02/09/22 at 1208, Anesthesia Intra-op Given 02/09/2022 12:08 PM MOUNTER SOUSAPHONES 2 mg neostigmine injection intravenous, Administer over 3 Minutes, As needed, Starting on Tue02/09/22 at 1410, Anesthesia Intra-op Given 02/09/2022 2:10 PM MOUNTER SOUSAPHONES 2.5 mg ondansetron (ZOFRAN) injection intravenous, Administer over 2 Minutes, As needed, Starting on Tue02/09/22 at 1400, Anesthesia Intra-op Given 02/09/2022 2:00 PM M[facility] SOUSAPHONES 4 mg propofoL (DIPRIVAN) 10 mg/mL IV intravenous, As needed, Starting on Tue02/09/22 at 1217, Anesthesia Intra-op Given 02/09/2022 12:17 PM MOUNTER SOUSAPHONES 200 mg rocuronium (ZEMURON) injection intravenous, As needed, Starting on Tue02/09/22 at 1217, Anesthesia Intra-op Given 02/09/2022 12:17 PM MOUN[facility] SOUSAPHON[facility] 40 mg documented in this encounter Care Teams Bevel Operator Relationship Specialty Start Date End Date Mike Mitchell MD PCP - General Family Practice 01/16/21 documented as of this encounter
--- OUTSIDE RECORDS SUMMARY | 2024-01-30 08:15 | XMS_ITS | Encounter Summary ---
Author Organization [facility] Address [address] [place] [address] Phone Care Team Providers Care Coat Examiner Name Role Phone Mike Mitchell MD Primary Care Provider [phone] Reason for Visit * Reason Comments Pain Pain Encounter Details Date Type Department Care Team (Late st Contact Info) Description 01/21/2022 11:00 AM AMBULATORY CARE NURSE Office Visit [facility] Orthopaedic Surgery [address] [place] [address] [phone] Shaan Samaniego MD [address] [facility] [address] Nontraumatic complete tear of left rotator cuff (Primary Dx); Nontraumatic incomplete tear of right rotator cuff Social History Tobacco Use Types Packs/Day Years Used Date Smoking Tobacco: Never Smokeless Tobacco: Never Alcohol Use Standard Drinks/Week Comments Yes 0 (1 standard drink = 0.6 oz pur e alcohol) socially AUDIT-C Answer Date Recorded Q1: How often do you have a drink containing alc ohol? 2-4 times a month 04/13/2021 Q2: How many drinks containi ng alcohol do you have on a typical day when you are drinking? 3 or 4 04/13/2021 Q3: How often do you have si x or more drinks on one occasion? Monthly 04/13/2021 Sex and Gender Information Value Date Recorded Sex Assigned at Not on file Legal Sex Male 8:42 AM AMBULATORY CARE NURSE Gender Identity Not on file Sexual Orientation Straight 04/01/2020 8: 42 PM AMBULATORY CARE NURSE documented as of this encounter Progress Notes * Shaan Samaniego MD - 01/21/2022 11:00 AM CST ESTABLISHED PATIENT VISIT INTERIM HISTORY This is a 61-year-old male who was referred to me for evaluation of his bilateral shoulders. He hasbeen indicated for rotator cuff repair on the left side. He has full-thickness rotator cuff tear onthat side. He also has partial- thickness rotator cuff tear on the right shoulder. He likes to golf. PHYSICAL EXAMINATION No acute distress, alert and oriented X 3. He can forward elevate the left shoulder to 80?? on the right shoulder to 120??. He can externally rotate bilaterally to 45??. He can internally rotate the right shoulder to the mid lumbar spine and left shoulder to the sacrum. He has negative abdominal compression test bilaterally. He is significant pain in Cosmo's position worse on the left side. He is positive lateral impingement signs on left side. REVIEW OF X-RAYS/STUDIES I reviewed his prior x-rays and ultrasound reports. This demonstrates medium- sized tear with bicepstenosynovitis on the left shoulder. On the right side, there is a near full-thickness rotator cuff tear. IMPRESSION/DIAGNOSIS Bilateral rotator cuff tear TREATMENT/PLAN A prolonged discussion with the patient regarding his radiographic clinical findings. We discussed potential treatment options in detail. We reviewed subacromial injection at the time of treatment for his left shoulder into the right shoulder. With regards to his left shoulder, we discussed arthroscopic rotator cuff repair and possible open biceps tenodesis. We reviewed non operative management. However, given his desired activity levels, failure of conservative measurements today including prior subacromial injection and physical therapy, he wishes to proceed with arthroscopic rotator cuff repair which I think is appropriate. We will get him scheduled for this. FOLLOW UP For surgery MD Magdi Stephensonisstant Professor [facility] Dr Samaniego dictating via MModal. Flotation Tender Helper variances may occur. LATORY CARE NURSE documented in this encounter Plan of Treatment Not on file documented as of this encounter Visit Diagnoses Diagnosis Nontraumatic complete tear of left rotator cuff- Primary Nontraumatic incomplete tear of right rotator cuff documented in this encounter Orders Case Request Count Last Ordered Date First Orde red Date CASE REQUEST OPERATING ROOM 1 01/21/2022 documented in this encounter Care Teams Coat Examiner Relationship Specialty Start Date End Date Mike Mitchell MD PCP - General Family Practice 01/16/21 documented as of this encounter
--- OUTSIDE RECORDS SUMMARY | 2024-01-30 08:15 | XMS_ITS | Encounter Summary ---
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 Role Phone Mike Mitchell MD Primary Care Provider [phone] Reason for Visit * Auth/Cert Specialty Diagnoses / Procedures Referred By Contac t Referred To Contact Diagnoses Nontraumatic complete tear of left rotator cuff Nontraumatic incomplete tear of right rotator cuff Nontraumatic complete tear of left rotator cuff [M75.122] Nontraumatic incomplete tear of right rotator cuff [M75.111] Procedures [place] SURGICAL ARTHROSCOPY SHOULDER W/ROTATOR CUFF RPR left ARTHROSCOPY SHOULDER ROTATOR CUFF REPAIR left possible open TENODESIS - BICEPS right subacromial INJECTION STEROID - SHOULDER Referral ID Status Reason Start Date Expiration Date Visits Re quested Visits Authorized [id number] 1 1 Encounter Details Date Type Department Care Team (Late st Contact Info) Description 02/09/2022 12:30 PM GRADE TAMPER - 02/09/2022 3:00 PM GRADE TAMPER Surgery [facility] [address] [place] [id number] Shaan Samaniego MD [address] [facility] [address]6B[address] [place] [address] LEFT ARTHROSCOPY SHOULDER ROTATOR CUFF REPAIR, OPEN BICEPS TENODESIS, RIGHT SHOULDER STEROID INJECTION Surgery Details Date/Time Status Location OR Service Patient Class Case Class Case Type Trauma Case? 02/09/2022 12:30 PM Posted [facility] OPERATING ROOM OR 4 Orthopaedics Outpatient Elective Panel 1 Procedure LRB Anes Op Region Wound Class Comments LEFT ARTHROSCOPY SHOULDER RO TATOR CUFF REPAIR, OPEN BICEPS TENODESIS, RIGHT SHOULDER STEROID INJECTION Left Choice Shoulder Class I - Brook n Surgeon Surgeon Role Service Panel Shaan Samaniego MD Primary Orthopae dics 1 Pam Castro MD Resident - Assisting Orthopae dics 1 Special Needs Anesthesia: PUMP documented in this encounter Social History Tobacco [...] on file Legal Sex Male 8:42 AM GRADE TAMPER Gender Identity Not on file Sexual Orientation Straight 04/01/2020 8: 42 PM GRADE TAMPER documented as of this encounter Last Filed Vital Signs Vital Sign Reading Time Taken Comments Blood Pressure 152/100 02/09/2022 3:00 PM GRADE TAMPER Pulse 78 02/09/2022 3:00 PM GRADE TAMPER Temperature 36.6 ??C (97.9 ??F) 02/09/2022 2:24 PM CS T Respiratory Rate 16 02/09/2022 3:00 PM GRADE TAMPER Oxygen Saturation 92% 02/09/2022 3:00 PM GRADE TAMPER Inhaled Oxygen Concentration - - Weight 114.8 kg (253 lb) 02/09/2022 10:30 AM GRADE TAMPER Height 182.9 cm (6') 01/25/2022 9:00 AM GRADE TAMPER Body Mass Index 34.31 01/25/2022 9:00 AM GRADE TAMPER documented in this encounter Discharge Instructions * Discharge Instructions* Harry Aleman RN - 02/09/2022 7:30 AM GRADE TAMPER [facility] Do not drive/operate heavy machinery for 24 hours. Do not make sign/authorize major decision for 24 hours. A responsible adult must be present for the first 24 hours after surgery. Have assistance with ambulation for first 24 hours after surgery Department of Orthopaedic Surgery Shaan Samaniego M.D. Office [address] [place] [address] Shoulder Surgery (Outpatient) Postoperative Instructions Medications Take 1-2 tablets of Oxycodone every 4-6 hours as needed for pain. Try to taper the use of your narcotic pills as soon as you feel comfortable. You may take Extra Strength Tylenol or Tylenol only in place of the pain pills. Do not take additional Tylenol if you are taking Percocet, [place], or Vicodin. You have been given a prescription for a stool softener, Colace. This medication is routinely used as pain medicines can be very constipating. Please take as directed unless you experience loose stools or diarrhea. Diet Resume a regular diet as soon as possible. It is advisable to start with clear liquids until nauseais gone. Sling Use the sling until your next office visit. Activity Increase your general activity level as [...] helps with shoulder pain. * Pendulum exercises: This applies to your shoulder, please proceed. You may start pendulum range of motion [...] Perform these exercises 3 times per day. * Active motion: Do not actively (on your own) lift your operative arm away from the side of the body or reach behind your back until cleared by [...] last longer than 5 days following surgery. 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) (HCC),High risk medications (not anticoagulants) long-term use Take 8 Tablets Daily for joint stiffness 240 tablet 11 2 08/10/19 23 UNABLE TO FIND Take 1 each by mouth every morning Chewable magnesium 12/23/19 23 vitamin b complex tabletIndications:Vit yung Deficiency Prevention Take 1 tablet by mouth nightly 12/23/19 23 documented as of this encounter Ordered Prescriptions Prescription Sig Dispense Quantity Refills Last Filled Start Date End Date oxyCODONE (ROXICODONE) 5 mg immediate release tabletIndications: Pain Take 1 tablet (5 mg total) by mouth every 4 (four) hours as needed for pain 40 tablet 02/09/2022 3 docusate sodium (COLACE) 100 mg capsuleIndications :constipation Take 1 capsule (100 mg total) by mouth 2 (two) times a day 60 capsule 02/09/2022 3 documented in this encounter Discharge Disposition Disposition Code Departure Means Destination Discharge to home or self care documented in this encounter H&P Notes * Shaan Samaniego MD - 02/09/2022 11:44 AM CST I have reviewed the H&P, examined the patient, and endorse the findings as written. Plan of Care : Based on the above findings, I consider Kris Spence to be an acceptable risk for : Procedure(s): left ARTHROSCOPY SHOULDER ROTATOR CUFF REPAIR left possible open TENODESIS - BICEPS right subacromial INJECTION STEROID - SHOULDER E TAMPER Source Note - Hayden Zaldivar MD - 01/25/2022 2:24 PM GRADE TAMPER Images from the original note were not included. Center for Preoperative Assessment and Planning Preoperative Evaluation Record Evaluation type/location: TPAP from [facility] Planned procedure site: [facility] Center OR Date: [...] BP - 80 Pertinent negatives: CAD ; [place] ; CABG ; valvular heart disease; valve [...] Comments: Hx of hepatic hemangioma s/p excision 2015 Gastrointestinal + GERD - on daily therapy. [...] is very hairy and had issues with account group supervisor reading if they do shave or remove hair prior to placing monitor pads The patient has a history of positive indirect Pam and is having a surgery where blood antibodies are not pertinent to the planned surgery. The antibody type is Anti E. [facility] anticipated [facility]-match difficulty is not difficult. [...] were provided by telephone and electronically per [facility]. Patient verbalized understanding of preoperative plan. Preoperative [...] RESTORATIVE PROCTOCOLECTOMY 2003 J-pouch and reversed ??? VENTRAL HERNIA REPAIR 06/2009 Allergies Allergen Reactions ??? Fruit Extracts Hives Tomatoes and oranges ??? Iron Rash ??? [place] Juice Hives ??? [place] Oil Hives ??? Sulfa (Sulfonamide Antibiotics) Hives and Rash ??? Tomato Hives ??? Azathioprine Other (See comments) pancreatitis Med List Status: Nurse Complete Set By: Mimi Dietrich RN at 01/25/2022 8:58 AM Taking? Last Dose Start Date End Date Provider allopurinoL (ZYLOPRIM) 100 mg tablet 01/25/2022 11/29/19 -- Amie Odonnell MD amLODIPine (NORVASC) 5 mg tablet 01/25/2022 [...] times a day as needed for diarrhea oaznvjelhhii-kthtevsg-asclmo tablet 01/25/2022 -- -- Amie Odonnell MD [...] ??? loperamide (IMODIUM) 2 mg capsule ??? skrxapbyaxup-ezuwjkyn-mwfsrq tablet ??? pregabalin (LYRICA) 50 mg capsule [...] Medication protocol when under care of a HOSPITAL COOK Planned anesthesia: General Informed Consent: Anesthesia plan and risks discussed with patient. Consent and Attending signature: I and/or my designee have discussed the anesthesia plan, benefits, possible alternatives, parental presence at time of induction (if indicated), and clinically relevant risks that may include dental injury, unintentional awareness, and/or other complications. The patient and/or parent/legal guardian understand, and agree to proceed. All questions answered. E TAMPER E TAMPER E TAMPER * Bina Cotton NP - 02/09/2022 10:35 AM CST Outpatient Pre-Procedure History and Physical Subjective Patient is a 61 y.o. male with chief complaint of left shoulder pain. Indication For Procedure: Pre-op Diagnosis * Nontraumatic complete tear of left rotator cuff [M75.122] * Nontraumatic incomplete tear of right rotator cuff [M75.111] Planned Procedure left ARTHROSCOPY SHOULDER ROTATOR CUFF REPAIR (L), left possible open TENODESIS - BICEPS (L), rightsubacromial INJECTION STEROID - SHOULDER (R) HPI: Patient is a 61 year old male with a left complete rotator cuff tear who presents today for left shoulder arthroscopy, rotator cuff repair, possible open biceps tenodesis, Right shoulder subacromial steroid injection. Past Medical History: Diagnosis Date Pam positive Crohn's disease (CMS/HCC) (HCC) GERD (gastroesophageal reflux disease) well controlled with meds HLD (hyperlipidemia) HTN (hypertension) well controlled Liver hemangioma Low testosterone Nephrolithiasis 2018 Obesity Past Surgical History: Procedure Laterality Date ABDOMINAL WALL DEFECT REPAIR 2013 reconstruction CYSTOSCOPY W/ LASER LITHOTRIPSY Right 2014 2018 HEMANGIOMA EXCISION 2016 liver INCISIONAL HERNIA REPAIR 04/13/2021 AWR POUCHOSCOPY 11/14/2020 RESTORATIVE PROCTOCOLECTOMY 2003 J-pouch and reversed VENTRAL HERNIA REPAIR 06/2009 Medications Prior to Admission Medication Sig Dispense Refill Last Dose allopurinoL (ZYLOPRIM) 100 mg tablet Take 100 mg by mouth 2 (two) times a day 02/08/2022 amLODIPine (NORVASC) 5 mg tablet Take 5 mg by mouth every morning 02/09/2022 chlorthalidone 25 mg tablet Take 25 mg by mouth every morning 02/08/2022 cholecalciferol (VITAMIN D-3) 2000 unit tablet Take 1 tablet (2,000 Units total) by mouth nightly (Patient taking differently: Take 2,000 Units by mouth nightly) 90 tablet 3 02/08/[address] (NexIUM) 20 mg capsule Take 40 mg by mouth every morning bid 02/09/2022 fenofibrate nanocrystallized (TRICOR) 48 mg tablet Take 48 mg by mouth nightly 02/08/2022 ibuprofen (ADVIL,MOTRIN) 200 mg tab/cap Take 400 mg by mouth every 6 (six) hours as needed for pain02/08/2022 inFLIXimab (REMICADE) 100 mg injection Infuse 1,200 mg into a venous catheter every 6 (six) weeks Infused at: CAM 5C Frequency change as of 06/30/21 r/t low IFX drug level from 06/07/21. 12/21/2021 iron fum/vit C/ascorbate sod (IRON PLUS VITAMIN C ORAL) Take 1 Dose by mouth nightly 02/08/2022 Klor-Con M20 20 mEq CR tablet Take 20 mEq by mouth 3 (three) times a day 02/08/2022 loperamide (IMODIUM) 2 mg capsule Take 2 capsules (4 mg total) by mouth 3 (three) times a day as needed for diarrhea (Patient taking differently: Take 4 mg by mouth 3 (three) times a day as needed for diarrhea) 180 capsule 4 Past Week wtilzbsawwzg-ddxjkfzs-ebdboh tablet Take 1 tablet by mouth every morning 02/08/2022 pregabalin (LYRICA) 50 mg capsule Take 50 mg by mouth 2 (two) times a day 02/09/2022 sulfaSALAzine (AZULFIDINE) 500 mg tablet Take 8 Tablets Daily for joint stiffness (Patient taking differently: Take 1,000 mg by mouth 4 (four) times a day Take 8 Tablets Daily for joint stiffness) 240 tablet 11 02/09/2022 testosterone cypionate (DEPO-TESTOTERONE) 200 mg/mL injection Inject 200 mg into the muscle as instructed every 14 (fourteen) days 02/07/2022 traZODone (DESYREL) 50 mg tablet Take 50 mg by mouth nightly 02/08/2022 UNABLE TO FIND Take 1 each by mouth every morning Chewable magnesium 02/08/2022 vitamin b complex tablet Take 1 tablet by mouth nightly 02/08/2022 tadalafiL (ADCIRCA) 10 mg tablet Take 10 mg by mouth daily as needed for erectile dysfunction Unknown Allergies Allergen Reactions Fruit Extracts Hives Tomatoes and oranges Iron Rash [place] Juice Hives [place] Oil Hives Sulfa (Sulfonamide Antibiotics) Hives and Rash Tomato Hives Azathioprine Other (See comments) Pancreatitis (Imuran) Social History Tobacco Use Smoking status: Never Smokeless tobacco: Never Substance and Sexual Activity Drug use: Yes Types: Alcohol Comment: ~2 drinks/week Sexual activity: Defer Alcohol Use: Heavy Drinker Frequency of Alcohol Consumption: 2-3 times a week Average Number of Drinks: 3 or 4 Frequency of Binge Drinking: Never Social History Substance and Sexual Activity Drug Use Yes Types: Alcohol Comment: ~2 drinks/week Vitals: 01/25/22 0900 02/09/22 1030 BP: 145/97 BP Location: Right arm Pulse: 77 Resp: 16 Temp: 36.6 ??C (97.9 ??F) TempSrc: Temporal SpO2: 94% Weight: 116.1 kg (256 lb) 114.8 kg (253 lb) Height: 182.9 cm (6') Review of Systems: Review of systems per HPI and otherwise all other systems are negative Physical exam: Lungs: clear to auscultation bilaterally Heart: regular rate and rhythm, S1, S2 normal, no murmur, click, rub or gallop Neurologic: Alert and oriented x4, grossly intact Bina Cotton NP Cosigned by Shaan Samaniego MD at 02/09/2022 11:53 AM GRADE TAMPER E TAMPER E TAMPER documented in this encounter Miscellaneous Notes * Perioperative Nursing Note - Harry Aleman RN - 02/09/2022 4:00 PM GRADE TAMPER Sling adjusted and demonstrated. Verbalized understanding. Pt states bilateral eyes no longer scratchy. No ointment was applied E TAMPER * Perioperative Nursing Note - Harry Aleman RN - 02/09/2022 3:44 PM GRADE TAMPER Pt states eyes are not scratchy anymore. Does not want to put ointment in. Dr gordon aware. Instructed to send ointment with patient. Pt instructed to use ointment q 2 hours for 24 hours for scratchy eyes. verbalized understanding. E TAMPER * Perioperative Nursing Note - Harry Aleman RN - 02/09/2022 3:12 PM GRADE TAMPER Pt c/o of blurriness and itching bilateral eyes, right worse than left. Dr gordon aware. Eye ointment ordered. E TAMPER * Op Note - Shaan Samaniego MD - 02/09/2022 12:47 PM CST Operative Report SURGEON: Shaan Samaniego MD SURGICAL TEAM: Surgeon(s) and Role: * Shaan Samaniego MD - Primary * Pam Castro MD - Resident - Assisting DATE OF SURGERY : 02/09/2022 PREOPERATIVE DIAGNOSIS: Left shoulder Rotator cuff tear, right partial thickness rotator cuff tear; POSTOPERATIVE DIAGNOSIS: Left shoulder rotator cuff tear, biceps tendinitis; right partial thickness rotator cuff tear PROCEDURE: LEFT ARTHROSCOPY SHOULDER ROTATOR CUFF REPAIR, OPEN BICEPS TENODESIS, RIGHT SHOULDER STEROID INJECTION (L) ANESTHESIA: General / regional OPERATIVE DETAILS PROCEDURE: The patient presented and identified themselves in the preoperative holding area. They identified the left shoulder as the operative site and the operative shoulder was marked in standard fashion. The right shoulder was also marked as a site for an injection. After placement of a scalene block and catheter, the patient was taken to the operating room where supplemental general endotracheal anesthesia was placed. Pneumatic compression devices were placed on the lower extremities and then the patient was placed into the beach chair position. After timeout, the right shoulder acromion was identified. The skin was prepped with chloraprep and an injection containing 8cc of 0.5% bupivicaine and 1cc of 40mg/mL of kenalog was injected into the right subacromial space. The left upper extremity wasprepped and draped in the usual sterile fashion. All bony landmarks were outlined carefully as wellas portal locations. 20 cc of local anesthetic containing epinephrine were then placed in the subacromial space. The arthroscope was then placed initially in the posterior portal. After entrance intothe glenohumeral joint, excellent visualization was obtained and an anterior portal was quickly established. A full radius resector was inserted here and diagnostic arthroscopy was undertaken. The biceps was found to be partially torn and a biceps tenotomy was performed in preparation for a biceps tenodesis. The rotator cuff tear was then [...] performed. The anterior inferior CA ligament was inspected and found to be without degenerative changes and no pathologic osteophytic bone was identified. No acromioplasty was performed. Other remaining soft tissue was excavated from the undersurface of the acromion. A smooth undersurface was obtained. The shaver was then used to decorticate the greater tuberosity at the location of the rotator cuff tear, obtaining a bleeding base of bone for healing. A grasper device was then inserted from laterally and the size of the tear as well as the reduction capabilities assessed by grasping the cuff and pulling laterally. At this point, a rotator cuff repair was performed by placing medial sutures from anchors placed just lateral to the articular margin on the greater tuberosity. [place] suture limbs were passed through the tendon with suture passing device in a horizontal mattress fashion. Suture limbs were then tied arthroscopically using non-sliding knots. This appropriately reduced the rotator cuff tear to the medial side of its anatomic insertion. The remaining suture limbs were then brought out to swivel lock sutures laterally such that a double-row equivalent construct was achieved with sutures coming over the top of the cuff, compressing it down tothe greater tuberosity as they were incorporated into swivel lock anchors laterally. The entire construct was then visualized from the lateral portal to verify appropriate suture location as well as reduction of the cuff and fixation and stability. The arm was released from its chiu and brought through internal and external rotation to verify the stability of the repair. At this point, the instruments were withdrawn. Attention was then turned to open biceps tenodesis. An incision centered over the inferior margin of the pectoralis major tendon in the medial arm was made measuring approximately 4 cm. After hemostasis was achieved, months I section was taken down to the humeral shaft. [...] pectoralis major tendon margin. One limb from each suture was then passed through the biceps starting at the musculotend inous junction and working distally. These limbs were then tied together. After cutting residual tendon, the free limbs were then used to reduce the proximal biceps into the wound onto the humerus. Attention and position were confirmed with palpation. The wound was then irrigated and the incision closed it 3 0 and 4 Monocryl. The portal sites were closed in a simple fashion with sutures. A bulky dressing was applied, anesthesia reversed, and patient was taken to recovery, having tolerated the procedure well and having sustained no intraoperative complications. Estimated Blood Loss: 100 mL Complications: None Condition on Discharge from the operating room was stable Shaan Samaniego MD Date: 02/22/2022 Time: 11:15 AM TEACHING ATTESTATION : I was present and directly participated in the entire procedure (including opening and closing). IMPLANTS: Implant Name Type Inv. Item Serial No. Head Counselor Lot No. LRB No. Used Action [employer] SET IMPLANT [employer] FIBERTAK BICEPS STERILE LATEX FREE [id number] - [id number] [employer] INCSET IMPLANT ARTHREX FIBERTAK BICEPS STERILE LATEX FREE AR- 3670 [employer] [id number] Left 1 Implanted [employer] CORKSCREW SUTURETAPE 5.5MM 14.7MM BIOABSORBABLE FULL THREAD 1.3MM [id number] - [id number] [employer] Corkscrew Suturetape 5.5mm 14.7mm Bioabsorbable Full Thread 1.3mm [id number] [employer] [id number] Left 1 Implanted [employer] SWIVELOCK C 4.75MM 19.1MM CLOSED EYELET VENT ANCHOR SUTURE AR- [id number] - [id number] [employer] Swivelock C 4.75mm 19.1mm Closed Eyelet Vent [place] Suture [id number] [employer] [id number] 1Implanted [employer] SWIVELOCK C 4.75MM 19.1MM CLOSED EYELET VENT ANCHOR SUTURE AR- 2324BCC - [id number] [employer] Swivelock C 4.75mm 19.1mm Closed Eyelet Vent [place] Suture [id number] [employer] [id number] 1Implanted E TAMPER E TAMPER E TAMPER * Pre-Procedure Instructions - Ada Vee RN - 02/05/2022 10:18 AM GRADE TAMPER We are pleased that you and your doctor have chosen [facility] for your surgery. We hope the following information will help make your visit a pleasant one. The name of the building is [facility] in [place]. Directions to facility (address [place] [address] [place] [address] road, [address] [place]. [address] [id number] When you enter the building, look directly to your left, you will see 2 glass double doors. These double doors say [address]. Go through those double doors and check in with the counseling psychologist. Bring glass case- Bring pillows, leave in car. PT TO PURCHASE We machine DOS Wear loose-fitting clothes. Something with an elastic waist on the bottom, such as gym shorts or sweat pants depending on the weather. T-shirt on top or a shirt with a loose sleeve unless you are having shoulder surgery then wear a loose- fitting button-down shirt or a shirt that zips up the front. Pt instructed by CPAP not to eat Anything after Midnight. No gum, no mints, no candy, no cough drops, no CBD oil, no marijuana, no Chewing tobacco, or vaping. No ice or water. You may brush your teeth, just make sure you spit it all out. Instructed to patient to refer to [facility] surgery guide page 6 for any questions regarding eating and drinking day of surgery. For medications that the Nurse Practitioner instructed you to take on the morning of surgery, take the medications with a few sips of water. Pt's. , LEEANN [phone] will be with patient and care for patient for the first 24 hours post-op. Pt. Instructed to arrive at 1030 for 1230 procedure. Procedure is scheduled for 2.5 hour(s). [...] or purchase it from the refreshment area. E TAMPER * Pre-Procedure Instructions - Katerin Simeon NP - 01/25/2022 1:33 PM CST Center for Preoperative Assessment and Planning CPAP Clinic Location: [facility] The night before your surgery: [...] valuables at home or with your family. Outpatient Surgery: * You must have a [...] 100 mg tablet Take morning of surgery amLODIPine (NORVASC) 5 mg tablet Take morning of surgery chlorthalidone 25 mg tablet Don't take on day of surgery cholecalciferol (VITAMIN D-3) 2000 unit tablet Take night prior to procedure per usual schedule esomeprazole DR (NexIUM) 20 mg capsule Take morning of surgery fenofibrate nanocrystallized (TRICOR) 48 mg tablet Take night prior to procedure per usual schedule ibuprofen 200 mg tab/cap Take on day of surgery if needed unless otherwise instructed per surgeon inFLIXimab (REMICADE) 100 mg injection Per usual schedule iron fum/vit C/ascorbate sod (IRON PLUS VITAMIN C ORAL) Stop 7 days prior to surgery Klor-Con M20 20 mEq CR tablet Don't take on day of surgery loperamide (IMODIUM) 2 mg capsule Don't take on day of surgery gvoeudnmctjn-uuxoakhu-pootuk tablet Stop taking 1 week prior to surgery pregabalin (LYRICA) 50 mg capsule Take morning of surgery sulfaSALAzine (AZULFIDINE) 500 mg tablet Follow prescriber instructions tadalafiL (ADCIRCA) 10 mg tablet Don't take on day of surgery testosterone cypionate (DEPO-TESTOTERONE) 200 mg/mL injection Don't take on day of surgery traZODone (DESYREL) 50 mg tablet Take night prior to procedure per usual schedule If needed Chewable magnesium Don't take on day of surgery vitamin b complex tablet Don't take on day of surgery General Instructions For Medications: * You may [...] with COVID-19. You test positive for COVID-19. E TAMPER * Perioperative Nursing Note - Mimi Dietrich RN - 01/25/2022 9:03 AM CST Center for Preoperative Assessment and Planning Perioperative Nursing Note Telephone Preoperative Evaluation ([facility]) - TELEPHONE ONLY, NO PHYSICAL EXAM Date: 01/25/22 Vitals: 01/25/22 0900 Weight: 116.1 kg (256 lb) Height: 182.9 cm (6') Social History Tobacco Use Smoking Status Never Smokeless Tobacco Never Substance and Sexual Activity Drug Use Not Currently Alcohol Use Q1: How often do you have a drink containing alcohol?: 2-3 times a week Q2: How many drinks containing alcohol do you have on a typical day when you are drinking?: 3 or 4 Q3: How often do you have six or more drinks on one occasion?: Never Outpatient Medications Marked as Taking for the 02/09/22 encounter (Hospital Encounter) Medication Sig Dispense Refill allopurinoL (ZYLOPRIM) 100 mg tablet Take 100 mg by mouth 2 (two) times a day amLODIPine (NORVASC) 5 mg tablet Take 5 mg by mouth every morning chlorthalidone 25 mg tablet Take 25 mg by mouth every morning cholecalciferol (VITAMIN D-3) 2000 unit tablet Take 1 tablet (2,000 Units total) by mouth nightly (Patient taking differently: Take 2,000 Units by mouth nightly) [address] (NexIUM) 20 mg capsule Take 40 mg by mouth every morning bid fenofibrate nanocrystallized (TRICOR) 48 mg tablet Take 48 mg by mouth nightly ibuprofen 200 mg tab/cap Take 400 mg by mouth every 6 (six) hours as needed for pain inFLIXimab (REMICADE) 100 mg injection Infuse 1,200 [...] needed for diarrhea (Patient taking differently: Take 4 mg by mouth 3 (three) times a day as needed for diarrhea) 180 capsule 4 fkmhjluhhlee-qrlhzlyh-yepzoo tablet Take 1 tablet by mouth every morning pregabalin (LYRICA) 50 mg capsule Take 50 mg by mouth 2 (two) times a day sulfaSALAzine (AZULFIDINE) 500 mg tablet Take 8 Tablets Daily for joint stiffness (Patient taking differently: Take 1,000 mg by mouth 4 (four) times a day Take 8 Tablets Daily for joint stiffness) 240 tablet 11 tadalafiL (ADCIRCA) 10 mg tablet Take 10 mg by mouth daily as needed for erectile dysfunction testosterone cypionate (DEPO-TESTOTERONE) 200 mg/mL injection Inject 200 mg into the muscle as instructed every 14 (fourteen) days traZODone (DESYREL) 50 mg tablet Take 50 mg by mouth nightly UNABLE TO FIND Take 1 each by mouth every morning Chewable magnesium vitamin b complex tablet Take 1 tablet by mouth nightly Implants Mesh [employer] Spm3xl [id number] Square M[employer] Surgical Prolene Polypropylene - Sn/A - [id number] - Implanted Abdomen Inventory item: [employer] [id number] Square M[employer] Surgical Prolene Polypropylene SPM3XL Model/Cat number: [id number] Serial number: N/A Head Counselor: [employer] Lot number: [id number] Size: 50cm x 50cm Device identifier: [id number] Device identifier type: GS1 As of 04/13/2021 Status: Implanted SKIN Piercings Remaining: No Wound (LDAs) Type of Wound (LDA): (denies) SCREENINGS Miguel Angel index score: 100 PATIENT CARE PLANNING Advance Directives (For Healthcare) Have you reviewed your Advance Directive and is it valid for this stay?: Not applicable Advance Directive: Patient does not have advance directive Information Provided on Healthcare Directives: No 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 Arrival time and surgical time will be provided to the patient by their surgeon. You should wear clothing that is clean, loose, comfortable and easy to get in and out of on the dayof surgery. You should leave your valuables and any jewelry at home. No metal or piercings are allowed in the operating room. You should bring your insurance card, a photo ID (example: Lead Producer's License) and a method of payment for any insurance copay, deductible or copay for discharge medications. You should bring a complete, up-to-date list of all your medications on the day of surgery, including any over the counter medications or supplements you may take. You should bring your Advanced Directive and/or Living Will with you on the day of surgery if you have not verified a copy is already in your Epic Chart. If you are having surgery at [facility], please arrive on the day [...] Pathway to Excellent Care by the followinglink: [email or web address] How To Prepare Your Skin For Surgery [...] if you need help finding this product. SHOWERING WITH ANTISEPTIC SOAP (CHG) What You [...] Remove nail coverings, artificial nails and nail tamazight. The Morning of Surgery: Take a shower with Antiseptic soap (CHG). Follow the steps for ???Showering with Antiseptic Soap (CHG)?? above. Put clean clothes on after you shower. Travel/Exp osure Screening: Travel Screening Have you traveled outside the [place] in the last 6 months?: No Exposure Screening Have you been exposed to anyone who is sick in the last 30 days?: No Have you been exposed to or tested positive for COVID-19 within the last 10 days?: No Have you tested positive for monkeypox within the last 28 days or are you waiting for a monkeypox test result?: No Infectious Disease Screening Are you having [...] questions, please call the [facility] Staff at [phone], Tuesday-Tuesday 8am-4:30pm. All patients should read the below section: All visitors/patients are being asked to wear a clean face mask when entering the hospital. COVID 19 Updates & Visitor Policy: Please access [email or web address] for the most updated information. Information on [facility]: Please view [email or web address] (Patient & Visitor Information) for additional details regarding Advanced Directive forms, AWARE, directions, parking information, lodging, Internet access, dining and more. Information on [facility] or [facility] ([facility]): Please view [email or web address] (Patient and Visitor Information) for parking/directions and more. For MyChart information, to activate account or password recovery, please go to [email or web address] or call [phone] (toll-free: [phone]). Information for Suicide Prevention: National Suicide Prevention Lifeline (2-980- 392-AEQX (2997)). Surgery Times: For patients having surgery @ [facility], [facility], [facility] or [facility] ([facility]), if your surgeon's office has not notified you of your surgery time by NOON THE BUSINESS DAY BEFORE your surgery, please call [phone] and ask for your surgeon's office For patients having surgery @ [facility], if your surgeon's office has not notified you of your surgery time by NOON THE BUSINESS DAY BEFORE your surgery, please call the surgery center [phone]. E TAMPER documented in this encounter Plan of Treatment Not on file documented as of this encounter Procedures Procedure Name Priority Date/Time Associated Diagnosis Comments ARTHROSCOPY SHOULDER ROTATOR CUFF REPAIR 02/09/2022 12:11 PM GRADE TAMPER Nontraumatic complete tear of left rotator cuff Nontraumatic incomplete tear of right rotator cuff Special Needs Anesthesia: PUMP POCT PREOP SCREEN ([id number]-[id number]) Routine 02/09/2022 11:01 AM GRADE TAMPER documented in this encounter Results * POCT Preop screen ([id number]) (02/09/2022 11:01 AM GRADE TAMPER) Pathologist [facility] K POC 4.1 3.3 - 4.9 mmol/L HANNAH SINGH Comment: Interpretive Data This method is not able to assess for hemolysis, which may falsely increase potassium concentrations. If further testing is needed to evaluate this result, consider in-laboratory plasma potassium. Current Interpretive Data was last revised on 2021. Blood 02/09/2022 11:0 1 AM GRADE TAMPER 02/09/2022 11:01 AM GRADE TAMPER us Shaan Samaniego MD LAB POCT ORDERABL ES - DEVICE Final Result HANNAH MOURA [facility] Department [place] [address] documented in this encounter Visit Diagnoses Diagnosis Nontraumatic complete tear of left rotator cuff Nontraumatic incomplete tear of right rotator cuff Nontraumatic complete tear of left rotator cuff Nontraumatic incomplete tear of right rotator cuff documented in this encounter Admitting Diagnoses Diagnosis Nontraumatic complete tear of left rotator cuff Nontraumatic incomplete tear of right rotator cuff documented in this encounter Administered Medications Inactive Administered Medications - up to 3 most recent administrations Medication Order MAR Action Action Date Dose Rate Site bupivacaine preservative free 1,000 mg/500 mL (0.2%) infusion (premix) Continuous Rate: 6 mL/hr, Patient Bolus Dose: 4 mL, Lockout Interval: 30 Minutes, Catheter Site: Interscalene, Catheter Side: Left, perineural, Continuous, Starting on Tue02/09/22 at 1500, Until Tue02/09/22 at 2038, 500 mL, Indications: Pain Treatment Adjunct, RoutineIndications:Pain Treatment Adjunct New Bag 02/09/2022 2:39 PM GRADE TAMPER 6 mL/hr 6 mL/hr Lactated Ringer's (LR) infusion 30 mL/hr, intravenous, Continuous, Starting on Tue02/09/22 at 1045, Pre-Op, Use a 500 ml bag for End Stage Renal Disease Patients New Bag 02/09/2022 1:20 PM GRADE TAMPER Rate/Dose Verify 02/09/2022 12:11 PM GRADE TAMPER 30 mL/ hr New Bag 02/09/2022 11:02 AM GRADE TAMPER 30 mL/hr 30 mL/hr Lactated Ringer's (LR) irrigation As needed, Starting on Tue02/09/22 at 1324, Intra-Op Given 02/09/2022 1:53 PM GRADE TAMPER 3,000 mL Operative Joint Spac e Given 02/09/2022 1:24 PM GRADE TAMPER 6,000 mL Op erative Joint Space lidocaine PF (XYLOCAINE) 10 mg/mL (1 %) preservative free injection 2-10 mg 2-10 mg (0.2-1 mL), other, Once as needed, pain with IV placement, Starting on Tue02/09/22 at 1012, For 1 dose, Pre-Op, Administer volume needed to infiltrate IV site. Given 02/09/2022 11:02 AM GRADE TAMPER 2 mg lidocaine-EPINEPHrine (XYLOCAINE with EPI) 1 %-1:200,000 preservative free injection As needed, Starting on Tue02/09/22 at 1323, Intra-Op, Indications: Administration of Local AnesthesiaIndications:Administration of Local Anesthesia Given 02/09/2022 1:23 PM GRADE TAMPER 15 mL triamcinolone (KENALOG) 1 mL, bupivacaine (MARCAINE) 1 mL solution As needed, Starting on Tue02/09/22 at 1324, Intra-Op Given 02/09/2022 1:24 PM GRADE TAMPER 3 mL documented in this encounter Discontinued Medications Medication Sig Discontinue Reason Start Date End Da te acetaminophen 500 mg capsule Take 2 capsules (1,000 mg total) by mouth every 6 (six) hours as needed for pain Therapy completed 04/17/2021 01/25/2022 gabapentin (NEURONTIN) 300 mg capsuleIndications:Neur opathic Pain Take 300 mg by mouth 3 (three) times a day Therapy completed 10/23/2020 01/25/2022 lisinopriL (PRINIVIL,ZESTRIL) 10 mg tablet Take 1 tablet (10 mg total) by mouth daily Therapy completed 11/18/2020 01/25/2022 dc-afn-egpip acid-lutein 400-250 mcg tablet,chewable Take by mouth Duplicate order 01/25/2022 sildenafiL, pulm.hypertension, (REVATIO) 20 mg tablet Take 5 mg by mouth as needed Therapy completed 07/23/2013 01/25/2022 documented as of this encounter Historical Medications * This list may reflect changes made after this encounter. ibuprofen (ADVIL,MOTRIN) 200 mg tab/capIndicatio ns:Pain Take 2 tablet/capsule (400 mg total) by mouth every 6 (six) hours as needed for pain pregabalin (LYRICA) 50 mg capsuleIndicatio ns:nerve pain Take 1 capsule (50 mg total) by mouth 2 (two) times a day 01/11/2022 tadalafiL (ADCIRCA) 10 mg tablet Take 1 tablet (10 mg total) by mouth daily as needed for erectile dysfunction 01/12/2022 traZODone (DESYREL) 50 mg tabletIndication s:insomnia associated with depression Take 1 tablet (50 mg total) by mouth nightly as needed for sleep PRN 01/11/2022 added in this encounter Active and Recently Administered Medications Times are shown in GRADE TAMPER. Scheduled Medication Order 02/07/2022 02/08/2022 02/09/2022 ceFAZolin (ANCEF) 2,000 mg/50 mL in dextrose (premix) 2,000 mg (COMPLETED) 2,000 mg, intravenous, at 100 mL/hr, Administer over 30 Minutes, Once, On e 02/09/22 at 1045, For 1 dose, Pre-Op, Administer within 60 minutes of incision. Duplex bag - activate before hanging. , Indications: Prophylaxis, Surgical 1214 (Given - Provid er: Emiliano Harmon CRNA) erythromycin (ILOTYCIN) 5 mg/gram (0.5 %) ophthalmic ointment each eye, Once, On Tue02/09/22 at 1545, For 1 dose, Phase I & Post-op Floor, Apply 1 cm ribbon. 1545 (Due) scopolamine patch 72 hour 1 patch 1 patch, transdermal, Administer over 72 Hours, Once, On Tue02/09/22 at 1045, For 1 dose, Pre-Op, Apply to beach-chair [...] Sickness, Prevention of Post-Operative Nausea and Vomiting 1045 (Due) Continuous Medication Order 02/07/2022 02/08/2022 02/09/2022 bupivacaine preservative free 1,000 mg/500 mL (0.2%) infusion (premix) Continuous Rate: 6 mL/hr, Patient Bolus Dose: 4 mL, Lockout Interval: 30 Minutes, Catheter Site: Interscalene, Catheter Side: Left, perineural, Continuous, Starting on Tue02/09/22 at 1500, Until Tu02/09/22 at 2038, 500 mL, Indications: Pain Treatment Adjunct, Routine 1439 (New Bag - Prov ider: Harry Aleman RN - Comment: aspiration negative, unclamp verified by antione mitchell r.n. infusing per preprogrammed settings. bolus initiated)1632 (Continued after Discharge - Provider: Harry Aleman RN) Lactated Ringer's (LR) infusion (CANCELED) 30 mL/hr, intravenous, Continuous, Starting on Tue02/09/22 at 1045, Pre-Op, Use a 500 ml bag for End Stage Renal Disease Patients 1102 (New Bag - Prov ider: Sybil Vazquez RN)1211 (Rate/Dose Verify - Provider: Emiliano Harmon CRNA)1319 (Paused - Provider: Emiliano Harmon CRNA - Comment: Switch to gravity)1320 (New Bag - Provider: Emiliano Harmon CRNA)1409 (Anesthesia Volume Adjustment - Provider: Emiliano Harmon CRNA)1430 (Due: Stopped - Provider: Emiliano Harmon CRNA) Lactated Ringer's (LR) infusion 125 mL/hr, intravenous, Continuous, Starting on Tue02/09/22 at 1500, Phase I, 1431 (Continued from OR - Provider: Harry Aleman RN)1600 (Stopped - Provider: Harry Aleman RN) PRN Medication Order 02/07/2022 02/08/2022 02/09/2022 diphenhydrAMINE (BENADRYL) injection 12.5 mg 12.5 mg, intravenous, Administer over 1 Minutes, Every 5 min PRN, itching, other, For Nausea, administer 25 mg IV., Starting on Tue02/09/22 at 1429, For 4 doses, Phase I, Max cumulative dose 50 mg., Indications: Itching fentaNYL (SUBLIMAZE) preservative free syringe 25 mcg 25 mcg, intravenous, Every 10 min PRN, 1st line for pain, Starting on Tue02/09/22 at 1429, For 4 doses, Phase I, Notify anesthesiologist if total PACU dose reaches 100 mcg AND pain score 5/10 or more. When patient able to tolerate PO, proceed to 2nd line analgesic agent for pain management., Indications: Pain hydrALAZINE (APRESOLINE) injection 5 mg 5 mg, intravenous, Administer over 2 Minutes, Every 5 min PRN, high blood pressure, Starting on Tue02/09/22 at 1429, Phase I, Max cumulative dose 20 mg. Dose if systolic BP greater than 180 AND heart rate less than 70., Indications: hypertension HYDROcodone-acetaminophen (NORCO) 5-325 mg per tablet 1 tablet 1 tablet, oral, Every 30 min PRN, 2nd line for pain, Starting on Tue02/09/22 at 1429, For 2 doses, Phase I, Indications: Pain labetaloL (NORMODYNE,TRANDATE) injection 5 mg 5 mg, intravenous, Every 5 min PRN, high blood pressure, Starting on Tue02/09/22 at 1429, For 4 doses, Phase I, Max cumulative dose 20 mg. Dose if systolic blood pressure greater than 180 AND HR greater than 70. Lactated Ringer's (LR) irrigation (CANCELED) As needed, Starting on Tue02/09/22 at 1324, Intra-Op 1324 (Given - Provid er: Shaan Samaniego MD - Comment: Left [place])1353 (Given - Provider: Shaan Samaniego MD) lidocaine PF (XYLOCAINE) 10 mg/mL (1 %) preservative free injection 2-10 mg (COMPLETED) 2-10 mg (0.2-1 mL), other, Once as needed, pain with IV placement, Starting on Tue02/09/22 at 1012, For 1 dose, Pre-Op, Administer volume needed to infiltrate IV site. 1102 (Given - Provid er: Sybil Vazquez RN - Comment: iv) lidocaine-EPINEPHrine (XYLOCAINE with EPI) 1 %-1:200,000 preservative free injection (CANCELED) As needed, Starting on Tue02/09/22 at 1323, Intra-Op, Indications: Administration of Local Anesthesia 1323 (Given - Provid er: Shaan Samaniego MD - Comment: Left Shoulder) meperidine (DEMEROL) preservative free injection 12.5 mg 12.5 mg, intravenous, Administer over 5 Minutes, Every 10 min PRN, shivering, Starting on Tue02/09/22 at 1429, For 2 doses, Phase I, Max cumulative dose 25 mg., Indications: Shivering naloxone (NARCAN) 0.4 mg/mL injection 0.04-0.4 mg 0.04-0.4 mg, intravenous, Once as needed, other, excessive sedation/respiratory depression, Starting on Tue02/09/22 at 1429, For 1 dose, Phase I, Dilute 0.4 [...] Once as needed, nausea, vomiting, Starting on Tue02/09/22 at 1429, For 1 dose, Phase I, Proceed to prochlorperazine if ondansetron has been given within the last 6 hours. prochlorperazine (COMPAZINE) injection 5 mg 5 mg, intravenous, Administer over 2 Minutes, Once as needed, nausea, vomiting, May give second 5 mg dose if nausea not improved after 15 minutes., Starting on Tue02/09/22 at 1429, For 2 doses, Phase I, If nausea/vomiting not relieved by ondansetron within 30 minutes or if ondansetron has been given within the last 6 hours. sodium chloride 0.9% flush 0.5-20 mL 0.5-20 mL, intra-catheter, As needed, line care, Flush Eudora Block Hep Locks to keep vein open., Starting on Tue02/09/22 at 1012, Pre-Op, Flush volume based on line type and size. Flush before and after each use. , Indications: Flushing triamcinolone (KENALOG) 1 mL, bupivacaine (MARCAINE) 1 mL solution (CANCELED) As needed, Starting on Tue02/09/22 at 1324, Intra-Op 1324 (Given - Provid er: Shaan Samaniego MD - Comment: Kenalog 40mg/ml - 1ml Bupivicaine .5% plain 2ml for total of 3mls injected into Right Shoulder per Dr Samaniego) documented in this encounter Orders Medications Ordered That Po ht Not Have Been Administered Count Last Ordered Date First Ordered Date ceFAZolin (ANCEF) 2,000 mg/5 0 mL in dextrose (premix) 2,000 mg 1 02/09/2022 diphenhydrAMINE (BENADRYL) i njection 12.5 mg 1 02/09/2022 erythromycin (ILOTYCIN) 5 mg /gram (0.5 %) ophthalmic ointment 1 02/09/2022 fentaNYL (SUBLIMAZE) preserv ative free syringe 25 mcg 1 02/09/2022 hydrALAZINE (APRESOLINE) injection 5 mg 1 0 02/09/2022 HYDROcodone-acetaminophen (N ORCO) 5-325 mg per tablet 1 tablet 1 02/09/2022 labetaloL (NORMODYNE,TRANDAT E) injection 5 mg 1 02/09/2022 Lactated Ringer's (LR) infusion 1 meperidine (DEMEROL) preserv ative free injection 12.5 mg 1 02/09/2022 naloxone (NARCAN) 0.4 mg/mL injection 0.04-0.4 mg 1 02/09/2022 ondansetron (ZOFRAN) injection 4 mg 1 02/09 prochlorperazine (COMPAZINE) injection 5 mg 1 02/09/2022 scopolamine patch 72 hour 1 patch 1 023 sodium chloride 0.9% flush 0.5-20 mL 1 04/2022 Discharge Count Last Ordered Date First Orde red Date DISCHARGE PATIENT 1 02/09/2022 documented in this encounter 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
--- OUTSIDE RECORDS SUMMARY | 2024-01-30 08:15 | XMS_ITS | Encounter Summary ---
Author Organization [facility] Healthcare Address [address] [place] [address] Care Team Providers Care Carbon Cutter Name Role Phone Mike Mitchell MD Primary Care Provider [phone] Reason for Visit * Auth/Cert Specialty Diagnoses / Procedures Referred By Contabhishek t Referred To Contact Diagnoses Nontraumatic complete tear of left rotator cuff Nontraumatic incomplete tear of right rotator cuff Nontraumatic complete tear of left rotator cuff [M75.122] Nontraumatic incomplete tear of right rotator cuff [M75.111] Procedures [facility] SUR[facility] ARTHROSCOPY SHOULDER W/ROTATOR CUFF RPR left ARTHROSCOPY SHOULDER ROTATOR CUFF REPAIR left possible open TENODESIS - BICEPS right subacromial INJECTION STEROID - SHOULDER Referral ID Status Reason Start Date Expiration Date Visits Re quested Visits Authorized [id number] 1 1 Encounter Details Date Type Department Care Team (Latest Contact Info) Description 02/09/2022 10:10 AM BANK ANALYST - 02/09/2022 4:32 PM BANK ANALYST Hospital Encounter [facility] Operating [facility] at the [facility] [address] [place] [address] Shaan Samaniego MD [address] [facility] 6A/6B/12A [place] [address] Discharge Disposition: Discharge to home or self [...] on file Legal Sex Male 8:42 AM BANK ANALYST Gender Identity Not on file Sexual Orientation Straight 04/01/2020 8: 42 PM BANK ANALYST documented as of this encounter Last Filed Vital Signs Vital Sign Reading Time Taken Comments Blood Pressure 138/91 02/09/2022 3:50 PM BANK ANALYST Pulse 90 02/09/2022 4:00 PM BANK ANALYST Temperature 36.4 ??C (97.5 ??F) 02/09/2022 4:31 PM CS T Respiratory Rate 16 02/09/2022 4:00 PM BANK ANALYST Oxygen Saturation 94% 02/09/2022 4:00 PM BANK ANALYST Inhaled Oxygen Concentration - - Weight 114.8 kg (253 lb) 02/09/2022 10:30 AM BANK ANALYST Height 182.9 cm (6') 01/25/2022 9:00 AM BANK ANALYST Body Mass Index 34.31 01/25/2022 9:00 AM BANK ANALYST documented in this encounter Discharge Instructions * Discharge Instructions* Harry Aleman, RN - 02/09/2022 7:30 AM BANK ANALYST [facility] Do not drive/operate heavy machinery for 24 hours. Do not make sign/authorize major decision for 24 hours. A responsible adult must be present for the first 24 hours after surgery. Have assistance with ambulation for first 24 hours after surgery Department of Orthopaedic Surgery Shaan Samaniego M.D. Office [address] [facility]. [place] [address] [place] [id number] Shoulder Surgery (Outpatient) Postoperative Instructions Medications Take 1-2 tablets of Oxycodone every 4-6 hours as needed for pain. Try to taper the use of your narcotic pills as soon as you feel comfortable. You may take Extra Strength Tylenol or Tylenol only in place of the pain pills. Do not take additional Tylenol if you are taking Percocet, Fontana, or Vicodin. You have been given a [...] last longer than 5 days following surgery. 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 Center for Preoperative Assessment and Planning Preoperative Evaluation Record Evaluation type/location: TPAP from [facility] Planned procedure site: Orthopedic Center OR [...] BP - 80 Pertinent negatives: CAD ; [place] ; CABG ; valvular heart disease; valve [...] liver disease; history of anemia (last H/H 15.) and history of thrombocytopenia Comments: Hx of [...] is very hairy and had issues with quality assurance monitor body reading if they do shave or remove hair prior to placing monitor pads The patient has a history of positive indirect Pam and is having a surgery where blood antibodies are not pertinent to the planned surgery. The antibody type is Anti E. [facility], anticipated cross-match difficulty is not difficult. [...] were provided by telephone and electronically per GetSnippy. Patient verbalized understanding of preoperative plan. Preoperative [...] Tomatoes and oranges ??? Iron Rash ??? Wolfe Juice Hives ??? Wolfe Oil Hives ??? Sulfa (Sulfonamide Antibiotics) Hives [...] times a day as needed for diarrhea vqmnfzcvzryb-uidvsnzq-ruagaw tablet 01/25/2022 -- -- Amie Odonnell MD [...] ??? loperamide (IMODIUM) 2 mg capsule ??? pyomlkrgphxq-zcmmbnpo-okybac tablet ??? pregabalin (LYRICA) 50 mg capsule [...] Medication protocol when under care of a DIRECT MARKETING EXECUTIVE Planned anesthesia: General Informed Consent: Anesthesia plan and risks discussed with patient. Consent and Attending signature: I and/or my designee have discussed the anesthesia plan, benefits, possible alternatives, parental presence at time of induction (if indicated), and clinically relevant risks that may include dental injury, unintentional awareness, and/or other complications. The patient and/or parent/legal guardian understand, and agree to proceed. All questions answered. ANALYST ANALYST ANALYST * Bina Cotton NP - 02/09/2022 10:35 [...] for diarrhea) 180 capsule 4 Past Week xzvuxpvucpiz-nbdkqpzn-eyhokw tablet Take 1 tablet by mouth every [...] Extracts Hives Tomatoes and oranges Iron Rash Wolfe Juice Hives Wolfe Oil Hives Sulfa (Sulfonamide Antibiotics) Hives and [...] Shaan Samaniego MD at 02/09/2022 11:53 AM BANK ANALYST ANALYST ANALYST documented in this encounter Miscellaneous Notes * Perioperative Nursing Note - Harry Aleman RN - 02/09/2022 4:00 PM BANK ANALYST Sling adjusted and demonstrated. Verbalized understanding. Pt states bilateral eyes no longer scratchy. No ointment was applied ANALYST * Perioperative Nursing Note - Harry Aleman RN - 02/09/2022 3:44 PM BANK ANALYST Pt states eyes are not scratchy anymore. Does not want to put ointment in. Dr gordon aware. Instructed to send ointment with patient. Pt instructed to use ointment q 2 hours for 24 hours for scratchy eyes. verbalized understanding. ANALYST * Perioperative Nursing Note - Harry Aleman RN - 02/09/2022 3:12 PM BANK ANALYST Pt c/o of blurriness and itching bilateral eyes, right worse than left. Dr gordon aware. Eye ointment ordered. ANALYST * Op Note - Shaan Samaniego MD [...] the articular margin on the greater tuberosity. [place] suture limbs were passed through the tendon [...] Implant Name Type Inv. Item Serial No. Automatic Glove Former Lot No. LRB No. Used Action [employer] SET IMPLANT ARTHREX FIBERTAK BICEPS STERILE LATEX FREE AR-3670 - [id number] ARTHREX INCSET IMPLANT ARTHREX FIBERTAK BICEPS STERILE LATEX FREE AR- 3670 [employer] Inc [id number] Left 1 Implanted [employer] CORKSCREW SUTURETAPE 5.5MM 14.7MM BIOABSORBABLE FULL THREAD 1.3MM AR-[id number] - [id number] [employer] Corkscrew Suturetape 5.5mm 14.7mm Bioabsorbable Full Thread 1.3mm AR-[id number] Ar[employer] Inc [id number] Left 1 Implanted [employer] SWIVELOCK C 4.75MM 19.1MM CLOSED EYELET VENT ANCHOR SUTURE AR- 2324BCC - [id number] [employer] Swivelock C 4.75mm 19.1mm Closed Eyelet Vent [place] Suture AR-2324BCC [employer] Inc [id number] 1Implanted [employer] SWIVELOCK C 4.75MM 19.1MM CLOSED EYELET VENT ANCHOR SUTURE AR- 2324BCC - [id number] [employer] Swivelock C 4.75mm 19.1mm Closed Eyelet Vent [place] Suture AR-2324BCC [employer] Inc [id number] 1Implanted ANALYST ANALYST ANALYST * Pre-Procedure Instructions - Ada Vee RN - 02/05/2022 10:18 AM BANK ANALYST We are pleased that you and your doctor have chosen [facility] for your surgery. We hope the following information will help make your visit a pleasant one. The name of the building is [facility] in [place]. Directions to facility (address is [address] [place] [address], [address] [facility] exit. Zip [address] When you enter the building, look directly to your left, you will see 2 glass double doors. These double doors say [address]. Go through those double doors and check in with the senior technical program manager. Bring glass case- Bring pillows, leave in car. PT TO PURCHASE [employer] machine DOS Wear loose-fitting clothes. Something with [...] out. Instructed to patient to refer to [facility] surgery guide page 6 for any questions regarding eating and drinking day of surgery. For medications that the Nurse Practitioner instructed you to take on the morning of surgery, take the medications with a few sips of water. Pt's. , LEEANN [phone] will be with patient and care for [...] or purchase it from the refreshment area. ANALYST * Pre-Procedure Instructions - Katerin Simeon NP - 01/25/2022 1:33 PM CST Center for Preoperative Assessment and Planning CPAP Clinic Location: [facility] The night before your surgery: * Do [...] capsule Don't take on day of surgery bpsoznjbsuts-djrjwzeu-zmrepj tablet Stop taking 1 week prior to [...] with COVID-19. You test positive for COVID-19. ANALYST * Perioperative Nursing Note - Mimi Dietrich RN - 01/25/2022 9:03 AM CST Center for Preoperative Assessment and Planning Perioperative Nursing Note Telephone Preoperative Evaluation ([facility]) - TELEPHONE ONLY, NO PHYSICAL EXAM [...] as needed for diarrhea) 180 capsule 4 gkvjybuaycdr-iojcclio-iqjknb tablet Take 1 tablet by mouth every [...] nightly Implants Mesh [employer] Endo Surgery Spm3xl [id number] Square Mesh Surgical Prolene Polypropylene - Sn/A - [id number] - Implanted Abdomen Inventory item: ETHICON ENDO SURGERY 90y37wz Square Mesh Surgical Prolene Polypropylene SPM3XL Model/Cat number: [id number] Serial number: N/A Automatic Glove Former: [employer] Endo Surgery Lot number: [id number] Size: 50cm x 50cm Device identifier: [id number] Device identifier type: GS1 As of 04/13/2021 Status: Implanted SKIN Piercings Remaining: No Wound (LDAs) Type of Wound (LDA): (denies) SCREENINGS Miguel Angel index score: 100 PATIENT CARE PLANNING Advance Directives (For Healthcare) Have you reviewed your Advance Directive and is it valid for this stay?: Not applicable Advance Directive: Patient does not have advance directive Information Provided on Healthcare Directives: No Communication/Pets And Pet Supplies Salesperson Needs Communication Needs: None Assistive Devices/DME: None Discharge Planning Type of Residence: Private residence Living Arrangements: Legal guardian Support Systems: Spouse/significant other Patient expects to be discharged to:: Private residence INTELLIGENCE SUPPORT OFFICER NO ADDITIONAL COMMENTS/ FOLLOW UP ANALYST * Pre-Procedure Instructions - Mimi Dietrich RN [...] your insurance card, a photo ID (example: Warehouse Associate Driver's License) and a method of payment for [...] Chart. If you are having surgery at [facility], please arrive on the [...] Pathway to Excellent Care by the followinglink: [email or web address] How To Prepare Your Skin [...] Remove nail coverings, artificial nails and nail cymraes. The Morning of Surgery: Take a shower [...] questions, please call the CPAP Staff at [phone], Tuesday-Tuesday 8am-4:30pm. All patients should read the below section: All visitors/patients are being asked to wear a clean face mask when entering the hospital. COVID 19 Updates & Visitor Policy: Please access [email or web address] for the most updated information. Information on [facility]: Please view [email or web address] (Patient & Visitor Information) for additional details regarding Advanced Directive forms, AWARE, directions, parking information, lodging, Internet access, dining and more. Information on [facility] or [facility] ([facility]): Please view [email or web address] (Patient and Visitor Information) for parking/directions and more. For MyChart information, to activate account or password recovery, please go to [email or web address] or call [phone] (toll-free: [phone]). Information for Suicide Prevention: National Suicide Prevention Lifeline (6-448- 741-MUOY (2605)). Surgery Times: For patients having surgery @ [facility], [facility], [facility] or [facility] ([facility]), if your surgeon's office has not notified you of your surgery time by NOON THE BUSINESS DAY BEFORE your surgery, please call [phone] and ask for your surgeon's office For patients having [facility] @ [facility], if your surgeon's office has not notified you of your surgery time by NOON THE BUSINESS DAY BEFORE your surgery, please call the surgery center [phone]. ANALYST documented in this encounter Plan of Treatment Not on file documented as of this encounter Procedures Procedure Name Priority Date/Time Associated Diagnosis Comments ARTHROSCOPY SHOULDER ROTATOR CUFF REPAIR 02/09/2022 12:11 PM BANK ANALYST Nontraumatic complete tear of left rotator cuff Nontraumatic incomplete tear of right rotator cuff Special Needs Anesthesia: PUMP POCT PREOP SCREEN (QYE-GU-AAT-BUN-CR- HBG-HCT) Routine 02/09/2022 11:01 AM BANK ANALYST documented in this encounter Results * POCT Preop screen (ptmlx-Ed-Nld-RMV-Im-Rmm-Hct) (02/09/2022 11:01 AM BANK ANALYST) K POC 4.1 3.3 - 4.9 mmol/L HANNAH SINGH Comment: Interpretive Data This method is not able to assess for hemolysis, which may falsely increase potassium concentrations. If further testing is needed to evaluate this result, consider in-laboratory plasma potassium. Current Interpretive Data was last revised on 2021. Blood 02/09/2022 11:0 1 AM BANK ANALYST 02/09/2022 11:01 AM BANK ANALYST us Shaan Samaniego MD LAB POCT ORDERABL ES - DEVICE Final Result HANNAH MOURA [facility] [place] [address] documented in this encounter Visit Diagnoses Diagnosis [...] Treatment Adjunct New Bag 02/09/2022 2:39 PM BANK ANALYST 6 mL/hr 6 mL/hr Lactated Ringer's (LR) infusion 30 mL/hr, intravenous, Continuous, Starting on Tue02/09/22 at 1045, Pre-Op, Use a 500 ml bag for End Stage Renal Disease Patients New Bag 02/09/2022 1:20 PM BANK ANALYST Rate/Dose Verify 02/09/2022 12:11 PM BANK ANALYST 30 mL/ hr New Bag 02/09/2022 11:02 AM BANK ANALYST 30 mL/hr 30 mL/hr lidocaine PF (XYLOCAINE) 10 mg/mL (1 %) preservative free injection 2-10 mg 2-10 mg (0.2-1 mL), other, Once as needed, pain with IV placement, Starting on Tue02/09/22 at 1012, For 1 dose, Pre-Op, Administer volume needed to infiltrate IV site. Given 02/09/2022 11:02 AM BANK ANALYST 2 mg documented in this encounter Discontinued Medications Medication [...] by mouth daily Therapy completed 11/18/2020 01/25/2022 mb-jve-dhkvy acid-lutein 400-250 mcg tablet,chewable Take by mouth [...] Recently Administered Medications Times are shown in BANK ANALYST. Scheduled Medication Order 02/07/2022 02/08/2022 02/09/2022 ceFAZolin [...] 1 02/09/2022 Lactated Ringer's (LR) infusion 1 Lactated Ringer's (LR) irrigation 1 023 lidocaine-EPINEPHrine (XYLOC GERMAINE with EPI) 1 %-1:200,000 preservative free injection 1 02/09/2022 meperidine (DEMEROL) preserv ative free injection 12.5 mg 1 02/09/2022 naloxone (NARCAN) 0.4 mg/mL injection 0.04-0.4 mg 1 02/09/2022 ondansetron (ZOFRAN) injection 4 mg 1 02/09 prochlorperazine (COMPAZINE) injection 5 mg 1 02/09/2022 scopolamine patch 72 hour 1 patch 1 023 sodium chloride 0.9% flush 0.5-20 mL 1 04/2022 triamcinolone (KENALOG) 1 mL , bupivacaine (MARCAINE) 1 mL solution 1 02/09/2022 Discharge Count Last Ordered Date First Orde red Date DISCHARGE PATIENT 1 02/09/2022 documented in this encounter Care Teams Carbon Cutter Relationship Specialty Start Date End Date Mike Mitchell MD PCP - General Family Practice 01/16/21 documented as of this encounter
--- OUTSIDE RECORDS SUMMARY | 2024-01-30 08:16 | XMS_ITS | Encounter Summary ---
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) Procedures SD INFLIXIMAB NOT BIOSIMIL 10MG Julia Moreno MD [address] [place] [address] Phone: tel: fax: [facility] [address] [place] [address] 5th [place] [address] [place] [address] Phone: tel: fax: Referral ID Status Reason Start Date Expiration Date Visits Re quested Visits Authorized [id number] Closed 08/31/2022 09/01/2023 26 26 Encounter Details Date Type Department Care Team (Late st Contact Info) Description 08/03/2021 12:45 PM CDT Infusion [facility] [address] [place] [address] 5[address] [place] [address] [place] [address] Crohn's disease of ileum with complication (CMS/HCC) (HCC) (Primary Dx) Social History Tobacco Use [...] on file Legal Sex Male 8:42 AM WIND TURBINE ERECTOR Gender Identity Not on file Sexual Orientation Straight 04/01/2020 8: 42 PM WIND TURBINE ERECTOR documented as of this encounter Last Filed Vital Signs Vital Sign Reading Time Taken Comments Blood Pressure 138/84 08/03/2021 3:00 PM CDT Pulse 73 08/03/2021 3:00 PM CDT Temperature - - Respiratory Rate 16 08/03/2021 3:00 PM CDT Oxygen Saturation - - Inhaled Oxygen Concentration - - Weight - - Height - - Body Mass Index - - documented in this encounter Progress Notes * Lubna Gaspar RN - 08/03/2021 12:45 PM CDT Pt to infusion center for Remicade q6 weeks. VSS. Tolerated infusion without adverse reaction. Follow up scheduled. documented in this encounter Plan of Treatment [...] intravenous, Administer over 2 Hours, Once, On 08/03/21 at 1315, For 1 dose, Infuse with filter tubing [...] of ileum with complication (HCC) New Bag 08/03/2021 12:55 PM CDT 1,200 mg documented in this encounter Orders Medications Ordered That Po ht Not Have Been Administered Count Last Ordered Date First Ordered Date inFLIXimab (REMICADE) 1,200 mg in sodium chloride 0.9% 500 mL IVPB 1 08/03/2021 Nursing Count Last Ordered Date First Orde red Date HEIGHT AND WEIGHT 1 08/03/2021 ONCBCN NURSING COMMUNICATION [id number] 0 08/03/2021 VITAL SIGNS INTRA-INFUSION 1 08/03/2021 documented in this encounter Care Teams Craft Demonstrator Relationship Specialty Start Date End Date Mike Mitchell MD PCP - General Family Practice 01/16/21 documented as of this encounter
--- OUTSIDE RECORDS SUMMARY | 2024-01-30 08:16 | XMS_ITS | Encounter Summary ---
Author Organization [facility] Address [address] [place] [address] Phone Care Team Providers Care Configuration Release Manager Name Role Phone Mike Mitchell MD Primary Care Provider [phone] Encounter Details Date Type Department Care Team (Late st Contact Info) Description 09/14/2021 9:40 AM CDT Lab [facility] Endocrinology Metabolism and Lipid [address] [facility] 5th [place] [address] [place] [phone] Crohn's disease of ileum with complication (CMS/HCC) (HCC) Social History Tobacco Use Types Packs/Day [...] on file Legal Sex Male 8:42 AM UNDERGRADUATE INTERNSHIP Gender Identity Not on file Sexual Orientation Straight 04/01/2020 8: 42 PM UNDERGRADUATE INTERNSHIP documented as of this encounter Plan of Treatment Not on file documented as of this encounter Visit Diagnoses Diagnosis Crohn's disease of ileum with complication (HCC) documented in this encounter Care Teams Configuration Release Manager Relationship Specialty Start Date End Date Mike Mitchell MD PCP - General Family Practice 01/16/21 documented as of this encounter
--- OUTSIDE RECORDS SUMMARY | 2024-01-30 08:16 | XMS_ITS | Encounter Summary ---
Author Organization [facility] Address [address] [place] [address] Phone Care Team Providers Care Medical Director Occupational Health Name Role Phone Mike Mitchell MD Primary Care Provider [phone] [phone] Encounter Details Date Type Department Care Team (Late st Contact Info) Description 08/27/2021 10:00 AM CDT Office Visit [facility] G[facility] 12th [place] [address] [place] [address] Julia Moreno MD [address] [place] [address] Crohn's 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 (CMS/HCC) (HCC) (Primary Dx); High risk medications (not anticoagulants) long-term use Social History Tobacco Use Types Packs/Day Years [...] file 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 Gender Identity Not on file Sexual Orientation Straight 04/01/2020 8: 42 PM BUSINESS ATTORNEY documented as of this encounter Last Filed Vital Signs Vital Sign Reading Time Taken Comments Blood Pressure 153/89 08/27/2021 9:55 AM CDT Pulse 84 08/27/2021 9:55 AM CDT Temperature 36.7 ??C (98 ??F) 08/27/2021 9:55 AM CDT Respiratory Rate - - Oxygen Saturation - - Inhaled Oxygen Concentration - - Weight 112.6 kg (248 lb 3.2 oz) 08/27/2021 9:55 AM CDT Height 182.9 cm (6') 08/27/2021 9:55 AM CDT Body Mass Index 33.66 08/27/2021 9:55 AM CDT documented in this encounter Patient Instructions * Patient Instructions* Lisa Napoles - 08/27/2021 10:00 AM CDT Return office visit is needed in 6 months We will plan to perform a repeat colonoscopy towards the end of this year (Brenda with Dr. Moreno's office will contact you for scheduling once it comes closer to time) documented in this encounter Progress Notes * John Rutherford MD - 08/27/2021 10:00 AM CDT Reason for visit: follow up for Crohn's disease of the pouch Problem List: Patient Active Problem List Diagnosis Date Noted ??? Gastrointestinal hemorrhage 11/16/2020 ??? Crohn's disease of ileum with complication (CMS/HCC) (HCC) 03/27/2020 ??? Recurrent incisional hernia 03/07/2020 HPI: Kris Spence is a 61 y.o. male with Crohn's disease of the pouch who returns for follow upof the same. Last visit was 02/19/21, at which time he was s/p pouchoscopy 11/2020 w/ few ulcers in the afferent limb, pseudopolyps (resected), path w/ chronic active ileitis and colitis-> low remicade level, so planned to increase from 5 to 10 mg/kg q8 weeks. He noted joint pain at that visit. The plan was to continue remicade, add sulfasalazine 2 tabs TID, voltaren gel, tylenol PRN, increase dietary fiber, use imodium PRN (and can add lomotil PRN id needed), use abdominal binder, plan for pouchoscopy in6 months. In the interim, s/p hernia repair 04/2021. His remicade level was 4.4, and hence his frequency was increased from q8 to q6 weeks in 07/2021. Since his last visit, he notes that his joint pain has markedly improved w/ sulfasalazine 2 tabs TID. Not using voltaren gel, but using mountain ice gel (OTC instead). Also using tylenol PRN if he knows he will be very active that day. He has been having 6 BMs/day, down from 10/day previously. He has increased his dietary fiber somewhat. He uses imodium PRN if he knows he will be active/out of the house for an extended period. He denies abd pain, N/V, hematochezia, unintentional weight loss, or other complaints. He does not wish to pursue COVID booster or pneumococcal vaccination. Review of Systems: On complete review of systems, all other systems are negative. Allergies Allergen Reactions ??? Fruit Extracts Hives Tomatoes and oranges ??? Iron Rash ??? [place] Juice Hives ??? [place] Oil Hives ??? Sulfa (Sulfonamide Antibiotics) Hives and Rash ??? Tomato Hives ??? Sulfur Unknown Cerner Allergy Text Annotation: Sulfur ??? Azathioprine Other (See comments) pancreatitis Current Outpatient Medications Medication Sig Dispense Refill ??? allopurinoL (ZYLOPRIM) 100 mg tablet Take 100 mg by mouth 2 (two) times a day ??? amLODIPine (NORVASC) 5 mg tablet Take 5 mg by mouth daily ??? chlorthalidone 25 mg tablet Take 25 mg by mouth every morning ??? esomeprazole DR (NexIUM) 20 mg capsule Take 40 mg by mouth every morning bid ??? fenofibrate nanocrystallized (TRICOR) 48 mg tablet Take 48 mg by mouth nightly ??? Klor-Con M20 20 mEq CR tablet Take 20 mEq by mouth 3 (three) times a day ??? loperamide (IMODIUM A-D) 2 mg tablet Take 2 tablets up to three times daily as needed (Patient taking differently: Take 2 mg by mouth as needed Take 2 tablets up to three times daily as needed) 180 tablet 2 ??? sulfaSALAzine (AZULFIDINE) 500 mg tablet TAKE 2 TABLETS UP TO THREE TIMES A DAY NEEDED 180 tablet 2 ??? acetaminophen 500 mg capsule Take 2 capsules (1,000 mg total) by mouth every 6 (six) hours as needed for pain ??? cholecalciferol (VITAMIN D-3) 2000 unit tablet TAKE 1 TABLET BY MOUTH EVERY DAY (Patient takingdifferently: Take by mouth nightly) 90 tablet 3 ??? gabapentin (NEURONTIN) 300 mg capsule Take 300 mg by mouth 3 (three) times a day (Patient not taking: Reported on 08/27/2021) ??? inFLIXimab (REMICADE) 100 mg injection Infuse 1,200 mg into a venous catheter every 6 (six) weeks Infused at: CAM 5C Frequency change as of 06/30/21 r/t low IFX drug level from 06/07/21. ??? iron fum/vit C/ascorbate sod (IRON PLUS VITAMIN C ORAL) Take 1 Dose by mouth nightly ??? lisinopriL (PRINIVIL,ZESTRIL) 10 mg tablet Take 1 tablet (10 mg total) by mouth daily (Patient not taking: Reported on 08/27/2021) 30 tablet 11 ??? uvswowujuzqy-ijrgkuoc-pzhqxf tablet Take 1 tablet by mouth every morning ??? sildenafiL, pulm.hypertension, (REVATIO) 20 mg tablet Take 5 mg by mouth as needed ??? testosterone cypionate (DEPO-TESTOTERONE) 200 mg/mL injection Inject 200 mg into the muscle as instructed every 14 (fourteen) days ??? UNABLE TO FIND Take 1 each by mouth every morning Chewable magnesium ??? vitamin b complex tablet Take 1 tablet by mouth nightly No current facility-administered medications for this visit. Physical Exam: BP 153/89 Pulse 84 Temp 36.7 ??C (98 ??F) Ht 182.9 cm (6') Wt 67.7 kg (149 lb 3.2 oz) BMI20.24 kg/m?? General Appearance: Alert, cooperative, no distress. HEENT: Normocephalic, without obvious abnormality, atraumatic. No scleral icterus or conjunctival pallor. Neck: No palpable lymphadenopathy. Lungs: Clear to auscultation bilaterally, respirations unlabored Cardiovascular: Regular rate and rhythm, no murmur. Abdomen: Soft, non-tender, bowel sounds active all four quadrants, no masses, no organomegaly, non-distended Extremities: No cyanosis or edema, no clubbing Skin: No rash Neurologic: Alert and oriented x 4. No focal deficits. CN II-XII intact. Psychiatric: Normal mood and affect Labs: Hospital Outpatient Visit on 06/23/2021 Component Date Value Ref Range Status ? ? Anti infliximab ab 06/23/2021 <20.0 <50.0 units/mL Final ??? Infliximab Antibody Interp 06/23/2021 See Footnote Final Infusion on 06/23/2021 Component Date Value Ref Range Status ??? WBC 06/23/2021 5.3 3.8 - 9.9 K/cumm Final ??? Hgb 06/23/2021 15.3 13.0 - 17.5 g/dL Final ??? Hct 06/23/2021 44.7 38.9 - 50.3 % Final ??? Plt 06/23/2021 238 150 - 400 K/cumm Final ??? MPV 06/23/2021 10.0 9.1 - 12.3 fL Final ??? RBC 06/23/2021 5.15 4.30 - 5.80 M/cumm Final ??? MCV 06/23/2021 86.8 81.3 - 96.4 fL Final ??? MCH 06/23/2021 29.7 27.1 - 33.3 pg Final ??? MCHC 06/23/2021 34.2 32.3 - 35.7 g/dL Final ??? RDW CV 06/23/2021 12.4 11.1 - 14.9 % Final ??? RDW SD 06/23/2021 39.4 35.7 - 48.1 fL Final ??? NRBC abs 06/23/2021 0.00 0.00 - 0.01 K/cumm Final ??? Bilirubin, total 06/23/2021 0.3 0.1 - 1.2 mg/dL Final ? ? Bilirubin, direct 06/23/2021 <0.2 0.1 - 0.3 mg/dL Final ??? Protein, pl 06/23/2021 7.3 6.5 - 8.5 g/dL Final ??? Albumin 06/23/2021 4.6 3.5 - 5.0 g/dL Final ??? Alk phos 06/23/2021 53 40 - 130 Units/L Final ??? ALT 06/23/2021 21 7 - 55 Units/L Final ??? AST 06/23/2021 28 10 - 50 Units/L Final ??? Infliximab 06/23/2021 4.4 (A) mcg/mL Final ??? Infliximab interp 06/23/2021 See Footnote Final ??? Neutrophil abs 06/23/2021 3.2 1.7 - 6.5 K/cumm Final ??? Imm gran abs 06/23/2021 0.0 0.0 - 0.1 K/cumm Final ??? Lymphocyte abs 06/23/2021 1.6 0.8 - 3.3 K/cumm Final ??? Monocyte abs 06/23/2021 0.5 0.2 - 0.8 K/cumm Final ??? Eosinophil abs 06/23/2021 0.1 0.0 - 0.5 K/cumm Final ??? Basophil abs 06/23/2021 0.0 0.0 - 0.1 K/cumm Final ??? Neutrophil pct 06/23/2021 59.5 % Final ??? Imm gran pct 06/23/2021 0.2 % Final ??? Lymphocyte pct 06/23/2021 29.5 % Final ??? Monocyte pct 06/23/2021 8.9 % Final ??? Eosinophil pct 06/23/2021 1.3 % Final ??? Basophil pct 06/23/2021 0.6 % Final Assessment/Plan: 1. Crohn's disease of the pouch Pouchoscopy 11/14/20 with evidence of active disease. His levels of inflixamab were low as of 1.4 01/05/21-> increased to 10 mg/kg, but still with low level at 4.4-> increased frequency to q6 weeks starting 07/2021. Since then, with decreased BM frequency. -Continue infliximab 10 mg/kg q6 weeks -We will plan for repeat pouchoscopy towards the end of this year, when he has been on q6 week dosing for ~6 months -Cont vitamin d -Imodium PRN -Continue high fiber diet 2. Joint pain Likely multifactorial with some component related to IBD. Improved. - Continue sulfasalazine 2 tablets TID- advised that he can uptitrate PRN to a maximum of 16 tablets/day - Continue OTC mountain ice gel PRN - Continue Tylenol PRN 3) Health Maintenance -S/p shingrix -Counseled extensively that we advise that he pursue COVID booster and pneumococcal vaccination, but he does not wish to pursue this. Also advised that he can consider evusheld (monoclonal Ab) re: COVID if he remains averse to booster. RTC in 6 months John Rutherford M.D. Gastroenterology Fellow, PGY-6 Cosigned by Julia Moreno MD at 08/27/2021 10:45 AM CDT Associated attestation - Julia Moreno MD - 08/27/2021 10:45 AM CDT I have seen and examined the patient. I agree with the findings and plan of care as documented in the resident/fellow's note. My total encounter time on 08/27/2021 was 30 minutes which was spent in [...] Visit Diagnoses Diagnosis Crohn's 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 (CMS/HCC) (HCC)- Primary High risk medications (not anticoagulants) long-term use Encounter for long-term (current) use of other medications documented in this encounter Historical Medications * This list may reflect changes made after this encounter. amLODIPine (NORVASC) 5 mg tabletIndications :hypertension Take 1 tablet (5 mg total) by mouth every morning 07/20/2021 [id number] acid-lutein 400-250 mcg tablet,chewable Take by mouth 2021 added in this encounter Care Teams Medical Director Occupational Health Relationship Specialty Start Date End Date Mike Mitchell MD PCP - General Family Practice 01/16/21 documented as of this encounter
--- OUTSIDE RECORDS SUMMARY | 2024-01-30 08:16 | XMS_ITS | Encounter Summary ---
Author Organization [facility] Address [address] [place] [address] Care Team Providers Care Baling Press Operator Name Role Phone Mike Mitchell MD Primary Care Provider [phone] [phone] Reason for Referral * Diagnostic Imaging (Routine) - Closed Specialty Diagnoses / Procedures Referred By Roberto moura Referred To Contact Diagnoses Bilateral shoulder pain, unspecified chronicity Procedures US Shoulder Bilateral Complete Wade Parker MD Phone: tel: fax: [address] [phone] Referral ID Status Reason Start Date Expiration Date Visits Re quested Visits Authorized [id number] Closed 01/06/2022 02/05/2023 1 1 AL ARCHITECT Reason for Visit * Diagnostic Imaging (Routine) - Closed Specialty Diagnoses / Procedures Referred By Roberto moura Referred To Contact Diagnoses Bilateral shoulder pain, unspecified chronicity Procedures US Shoulder Bilateral Complete Wade Parker MD Phone: tel: fax: [address] [phone] Referral ID Status Reason Start Date Expiration Date Visits Re quested Visits Authorized [id number] Closed 01/06/2022 02/05/2023 1 1 Encounter Details Date Type Department Care Team (Latest Contact Info) Description 01/13/2022 2:44 PM 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 - 01/13/2022 11:59 PM 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 Hospital Encounter [facility] [id number] [address] [address] Bilateral shoulder pain, unspecified chronicity Discharge Disposition: Discharge [...] on file Legal Sex Male 8:42 AM 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 Gender Identity Not on file Sexual Orientation Straight 04/01/2020 8: 42 PM 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 documented as of this encounter Medications at [...] tablet (48 mg total) by mouth nightly iron fum/vit C/ascorbate sod (IRON PLUS VITAMIN C ORAL)Indications:supp lement Take 1 Dose by mouth daily before breakfast Klor-Con M20 20 mEq CR tabletIndications:sup plement Take 1 tablet (20 mEq total) by mouth 3 (three) times a day 0 multivitamin-minerals -lutein tabletIndications:sup plement Take 1 tablet [...] nightly as needed for sleep PRN 2 acetaminophen 500 mg capsule Take 2 capsules (1,000 mg total) by mouth every 6 (six) hours as needed for pain 2 01/26/20 22 gabapentin (NEURONTIN) 300 mg capsuleIndications:Ne uropathic Pain Take 300 mg by mouth 3 (three) times a day 1 01/26/20 22 inFLIXimab (REMICADE) 100 mg injectionIndications: Crohn's Disease Infuse 120 mL (1,200 mg total) into a venous catheter every 4 (four) weeks Infused at: CAM 5C Frequency change as of 06/30/21 r/t low IFX drug level from 06/07/21. 1 01/14/20 23 lisinopriL (PRINIVIL,ZESTRIL) 10 mg tablet Take 1 tablet (10 mg total) by mouth daily 30 tablet 11 1 01/26/20 22 loperamide (IMODIUM A-D) 2 mg tablet Take 2 tablets up to three times daily as needed 180 tablet 2 2 01/19/20 22 rl-ucw-nqncc acid-lutein 400-250 mcg tablet,chewable Take by mouth 22 sildenafiL, pulm.hypertension, (REVATIO) 20 mg tablet Take 5 mg by mouth as needed 4 01/26/20 22 sulfaSALAzine (AZULFIDINE) 500 mg tabletIndications:Blender Operator hn's 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 (CMS/HCC) [...] Procedure Name Priority Date/Time Associated Diagnosis Comments US SHOULDER BILATERAL COMPLETE Schedule VICKI, Read VICKI (Appt Today, Awaiting Results) 01/13/2022 4:02 PM 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 Bilateral shoulder pain, unspecified chronicity documented in this encounter Results * US Shoulder Bilateral Complete (01/13/2022 4:02 PM 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) Anatomical Region Laterality Modality Shoulder N/A Ultrasound 01/13/2022 4:47 PM 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 Impressions 01/13/2022 5:14 PM 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 1. ??2.8 x 2.0 cm near full/full-thickness tear of the right supraspinatus tendon. 2. ??1.5 x 1.3 cm full-thickness tear of the left supraspinatus tendon. 3. ??Moderate bilateral subacromial/subdeltoid bursitis. Dictated by: Hollis Contreras M.D. The radiology attending physician has personally reviewed this study, and had reviewed and/or edited this written report and agrees with it. Electronically signed by: Blanco Mark MD Narrative 01/13/2022 5:14 PM 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 EXAMINATION: Bilateral shoulder sonogram, complete HISTORY: Bilateral shoulder pain FINDINGS: Real-time sonographic evaluation of the both shoulders was performed. Radiographs dated 01/06/2022 were reviewed. Right: The long head biceps tendon is normal in size and appearance, although there is surrounding minimal tenosynovitis. ??The tendon is normal in position. There is moderate subacromial/subdeltoid bursitis. There is a near full/full-thickness tear of the supraspinatus tendon measuring 2.8 x 2.0 cm (TR x AP). ??The subscapularis tendon is intact. ??There is mild fatty infiltration of the visualized bilateral rotator cuff musculature. There is a small amount of posterior right glenohumeral joint fluid. Left: The long head biceps tendon is normal in size and appearance, although there is surrounding mild tenosynovitis. ??The tendon is normal in position. There is moderate subacromial/subdeltoid bursitis. There is a full-thickness tear of the supraspinatus tendon measuring 1.5 x 1.3 cm (TR x AP). ??The subscapularis tendon is intact. ??There is mild fatty infiltration of the visualized bilateral rotator cuff musculature. There is no large left glenohumeral joint effusion. Procedure Note Edda Mark MD - 01/13/2022 EXAMINATION: Bilateral shoulder sonogram, complete HISTORY: Bilateral shoulder pain FINDINGS: Real-time sonographic evaluation of the both shoulders was performed. Radiographs dated 01/06/2022 were reviewed. Right: The long head biceps tendon is normal in size and appearance, although there is surrounding minimal tenosynovitis. The tendon is normal in position. There is moderate subacromial/subdeltoid bursitis. There is a near full/full-thickness tear of the supraspinatus tendon measuring 2.8 x 2.0 cm (TR x AP). The subscapularis tendon is intact. There is mild fatty infiltration of the visualized bilateral rotator cuff musculature. There is a small amount of posterior right glenohumeral joint fluid. Left: The long head biceps tendon is normal in size and appearance, although there is surrounding mild tenosynovitis. The tendon is normal in position. There is moderate subacromial/subdeltoid bursitis. There is a full-thickness tear of the supraspinatus tendon measuring 1.5 x 1.3 cm (TR x AP). The subscapularis tendon is intact. There is mild fatty infiltration of the visualized bilateral rotator cuff musculature. There is no large left glenohumeral joint effusion. IMPRESSION: 1. 2.8 x 2.0 cm near full/full-thickness tear of the right supraspinatus tendon. 2. 1.5 x 1.3 cm full-thickness tear of the left supraspinatus tendon. 3. Moderate bilateral subacromial/subdeltoid bursitis. Dictated by: Hollis Contreras M.D. The radiology attending physician has personally reviewed this study, and had reviewed and/or edited this written report and agrees with it. Electronically signed by: Blanco Mark MD us Wade Parker MD IMG US PROCEDURES Jayde l Result documented in this encounter Visit Diagnoses Diagnosis Bilateral shoulder pain, unspecified chronicity documented in this encounter Care Teams Baling Press Operator Relationship Specialty Start Date End Date Mike Mitchell MD PCP - General Family Practice 01/16/21 documented as of this encounter
--- OUTSIDE RECORDS SUMMARY | 2024-01-30 08:16 | XMS_ITS | Encounter Summary ---
Author Organization 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
--- OUTSIDE RECORDS SUMMARY | 2024-01-30 08:16 | XMS_ITS | Encounter Summary ---
Author Organization [facility] Address [address] [place] [address] Phone Care Team Providers Care Senior Electrical Project Manager Name Role Phone Mike Mitchell MD Primary Care Provider [phone] Reason for Visit * Episode Based Medications (Routine) - Closed Specialty Diagnoses / Procedures Referred By Contac t Referred To Contact Diagnoses Crohn's disease of ileum with complication (HCC) Procedures NC INFLIXIMAB NOT BIOSIMIL 10MG Julia Moreno MD [address] [place] [address] Phone: tel: fax: [facility]fusion [facility] [address] [place] [address] 5[address] [place] [address] [place] [address] Phone: tel: fax: Referral ID Status Reason Start Date Expiration Date Visits Re quested Visits Authorized [id number] Closed 08/31/2022 09/01/2023 26 26 Encounter Details Date Type Department Care Team (Late st Contact Info) Description 10/26/2021 9:30 AM CDT Infusion [facility] Infusion Therapy [address] [place] [address] 5[address] [place] [address] [place] [address] Crohn's disease of ileum with [...] on file 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 Follow up scheduled in 6 weeks. documented in this encounter Plan of Treatment Not on file documented as of this encounter Visit Diagnoses Diagnosis Crohn's disease of ileum with complication (HCC)- Primary documented in this encounter Administered Medications Inactive Administered Medications - up to 3 most recent administrations Medication Order MAR Action Action Date Dose Rate Site acetaminophen (TYLENOL) tablet 500 mg 500 mg, oral, Once, On Tue10/26/21 at 1000, For 1 dose, Please give 30 minutes prior to infusion for infusion reaction prophylaxis.Indications:Crohn's disease of ileum with complication (HCC) Given 10/26/2021 9:30 AM CDT 500 mg inFLIXimab (REMICADE) 1,200 mg in sodium chloride 0.9% 500 mL IVPB 1,200 mg, intravenous, Administer over 2 Hours, Once, On Tue10/26/21 at 1000, For 1 dose, Infuse with [...] of ileum with complication (HCC) New Bag 10/26/2021 9:35 AM CDT 1,200 mg documented in this encounter Orders Nursing Count Last Ordered Date First Orde red Date HEIGHT AND WEIGHT 1 10/26/2021 ONCBCN NURSING COMMUNICATION [id number] 0 10/26/2021 VITAL SIGNS INTRA-INFUSION 1 10/26/2021 documented in this encounter Care Teams Senior Electrical Project Manager Relationship Specialty Start Date End Date Mike Mitchell MD PCP - General Family Practice 01/16/21 documented as of this encounter
--- OUTSIDE RECORDS SUMMARY | 2024-01-30 08:16 | XMS_ITS | Encounter Summary ---
Author Organization [facility] Address [address] [place] [address] Phone Care Team Providers Care Cushion Padder Name Role Phone Mike Mitchell MD Primary Care Provider [phone] [phone] Reason for Visit * Episode Based Medications (Routine) - Closed Specialty Diagnoses / Procedures Referred By Contac t Referred To Contact Diagnoses Crohn's disease of ileum with complication (HCC) Procedures MI INFLIXIMAB NOT BIOSIMIL 10MG Julia Moreno MD [address] [place] [address] Phone: tel: fax: [facility] Therapy [address] [place] [address] 5th [place] [address] [place] [address] Phone: tel: fax: Referral ID Status Reason Start Date Expiration Date Visits Re quested Visits Authorized [id number] Closed 08/31/2022 09/01/2023 26 26 Encounter Details Date Type Department Care Team (Late st Contact Info) Description 12/07/2021 9:30 AM CDT Infusion [facility] Infusion Therapy [address] [place] [address] 5th [place] [address] [place] [address] Crohn's disease of ileum with [...] on file Legal Sex Male 8:42 AM SECY Gender Identity Not on file Sexual Orientation Straight 04/01/2020 8: 42 PM SECY documented as of this encounter Last Filed Vital Signs Vital Sign Reading Time Taken Comments Blood Pressure 174/94 12/07/2021 9:30 AM CDT Pulse 92 12/07/2021 9:30 AM CDT Temperature - - Respiratory Rate 18 12/07/2021 9:30 AM CDT Oxygen Saturation - - Inhaled Oxygen Concentration - - Weight - - Height - - Body Mass Index - - documented in this encounter Progress Notes * Viola Montoya RN - 12/07/2021 9:30 AM CDT Labs drawn per MD order. Pt given Remicade infusion. Pt states no significant weight change since last appointment. Pt scheduled for f/u appt and was without s/s of adverse reaction prior to discharge. documented in this encounter Plan of Treatment Not on file documented as of this encounter Procedures Procedure Name Priority Date/Time Associated Diagnosis Comments CBC WITH AUTO DIFFERENTIAL Routine 12/07/2021 9:35 AM CDT Crohn's disease of ileum with complication (HCC) HEPATIC FUNCTION PANEL Routine 12/07/2021 9:35 AM CDT Crohn's disease of ileum with complication (HCC) documented in this encounter Results * CBC with auto differential (12/07/2021 9:35 AM CDT) White Blood Count 6.8 3.6 - 11.2 K/uL [facility] RBC 4.87 4.06 - 5.63 M/uL [facility] Hemoglobin 15.6 13.0 - 17.5 g/dL [facility] Hematocrit 44.8 40.7 - 50.3 % [facility] MCV 92.1 80.0 - 97.6 fL [facility] MCH 32.0 26.7 - 33.7 pg [facility] MCHC 34.7 32.7 - 35.5 g/dL [facility] RBC Dist Width 12.7 12.3 - 17.0 % [facility] Platelet Count 229 140 - 440 K/uL [facility] MPV 8.6 6.8 - 10.4 fL [facility] Neutrophils % 67.0 38.7 - 74.5 % [facility] Lymphocyte % 24.4 20.0 - 54.3 % [facility] Monocytes % 7.6 4.3 - 13.5 % [facility] Eosinophils % 0.7 0.0 - 6.0 % [facility] Basophil % 0.3 0.0 - 3.0 % [facility] Absolute Neutrophil 4.6 1.8 - 6.6 K/uL [facility] Absolute Lymphocyte 1.7 0.8 - 3.3 K/uL [facility] Absolute Monocyte 0.5 0.2 - 1.2 K/uL [facility] Absolute Eosinophil 0.0 0.0 - 0.5 K/uL [facility] Absolute Basophil 0.0 0.0 - 0.2 K/uL [facility] Nucleated RBC % 0.1 0.0 - 0.4 /100 WBC [facility] Blood 12/07/2021 9:35 AM CDT 12/07/2021 10:19 AM CDT us Julia Moreno MD LAB BLOOD ORDERABLE S Final Result [facility] * Hepatic function panel (12/07/2021 9:35 AM CDT) Direct Bilirubin 0.09 0.00 - 0.30 mg/dL [facility] AST (SGOT) 26 11 - 47 IU/L [facility] ALT (SGPT) 31 6 - 53 IU/L [facility] Alk Phos, Total 59 35 - 129 IU/L [facility] Albumin 4.5 3.5 - 5.2 g/dL [facility] Total Bilirubin 0.27 0.20 - 1.40 mg/dL [facility] Total Protein 7.0 6.1 - 8.4 g/dL [facility] Blood 12/07/2021 9:35 AM CDT 12/07/2021 10:19 AM CDT us Julia Moreno MD LAB [...] 500 mg 500 mg, oral, Once, On Tue12/07/21 at 1000, For 1 dose, Please give 30 minutes prior to infusion for infusion reaction prophylaxis.Indications:Crohn's disease of ileum with complication (HCC) Given 12/07/2021 9:30 AM CDT 500 mg inFLIXimab (REMICADE) 1,200 mg in sodium chloride 0.9% 500 mL IVPB 1,200 mg, intravenous, Administer over 2 Hours, Once, On Tue12/07/21 at 1000, For 1 dose, Infuse with [...] of ileum with complication (HCC) New Bag 12/07/2021 9:40 AM CDT 1,200 mg documented in this encounter Care Teams Cushion Padder Relationship Specialty Start Date End Date Mike Mitchell MD PCP - General Family Practice 01/16/21 documented as of this encounter
--- OUTSIDE RECORDS SUMMARY | 2024-01-30 08:16 | XMS_ITS | Encounter Summary ---
Author Organization [facility] Address [address] [place] [address] Phone Care Team Providers Care Behavioral Technician Name Role Phone Mike Mitchell MD Primary Care Provider [phone] Reason for Referral * Diagnostic Imaging (Routine) - Closed Specialty Diagnoses / Procedures Referred By Contac t Referred To Contact Diagnoses Bilateral shoulder pain, unspecified chronicity Procedures US Shoulder Bilateral Complete Wade Parker MD Phone: tel: fax: [address] [address] Referral ID Status Reason Start Date Expiration Date Visits Re quested Visits Authorized [id number] Closed 01/06/2022 02/05/2023 1 1 E CHECKER Reason for Visit * Reason Comments Pain Pain Encounter Details Date Type Department Care Team (Late st Contact Info) Description 01/06/2022 10:30 AM TITLE CHECKER Office Visit [facility] Orthopaedic Surgery [address] [facility] 2[address] [place] [address] Wade Parker MD [address] [facility] [address] [place] [address] Bilateral shoulder pain, unspecified chronicity (Primary Dx) Social [...] on file Legal Sex Male 8:42 AM TITLE CHECKER Gender Identity Not on file Sexual Orientation Straight 04/01/2020 8: 42 PM TITLE CHECKER documented as of this encounter Progress Notes * Wade Parker MD - 01/06/2022 10:30 AM CST NEW PATIENT VISIT CHIEF COMPLAINT Pain of the Left Shoulder and Pain of the Right Shoulder HISTORY OF PRESENT ILLNESS Kris Quarles is a 61 y.o. male who presents today for evaluation of shoulder pain in both shoulders. Briefly, pain began in the left shoulder in April 2021 in the right shoulder September of 2021. Heis tried a prior course of physical therapy as well as manipulation and a TENS unit without lastingrelief. He relates a lot of the pain over the anterior shoulder. Had a prior injection done by his primary care provider which he states are describes as being just into the soft tissues around the area where he had pain at the time. He did not realize much pain relief from this but is not sure that this was done into the joint or in the subacromial space. He enjoys golfing. He does have a history of Crohn's disease and has been told that inflammation can become exacerbated in relation to this. PAST MEDICAL HISTORY He has a past medical history of Pam positive, GERD (gastroesophageal reflux disease), HTN (hypertension), Liver hemangioma, Nephrolithiasis, and Obesity. He has no past medical history of Acute respiratory failure requiring reintubation (CMS/HCC) (HCC),Awareness under anesthesia, Delayed emergence from general anesthesia, Hard to intubate, Malignant hyperthermia, Motion sickness, PONV (postoperative nausea and vomiting), Postoperative delirium, Pseu docholinesterase deficiency, or Sleep apnea. PAST SURGICAL HISTORY He has a past surgical history that includes Cystoscopy w/ laser lithotripsy (Right, 2018, 2014); Ventral hernia repair (06/2009, 07/2009); Abdominal wall defect repair (2012); Hemangioma excision (2015); Restorative proctocolectomy (2002); Pouchoscopy (11/14/2020); and Incisional hernia repair (04/13/2021). INITIAL REVIEW OF MEDICATIONS He has a current medication list which includes the following prescription(s): acetaminophen, allopurinol, amlodipine, chlorthalidone, cholecalciferol, esomeprazole dr, fenofibrate nanocrystallized, gabapentin, infliximab, iron fum/vit c/ascorbate sod, klor-con m20, lisinopril, loperamide, multivita nkl-fyokaqll-xiimwb, ou-xca-crihg acid-lutein, sildenafil (pulm.hypertension), sulfasalazine, testosterone cypionate, UNABLE TO FIND, and vitamin b complex. DRUG ALLERGIES He is allergic to fruit extracts, iron, orange juice, orange oil, sulfa (sulfonamide antibiotics), tomato, sulfur, and azathioprine. SOCIAL HISTORY He Social History Tobacco Use Smoking status: Never Smokeless tobacco: Never Substance and Sexual Activity Drug use: Not Currently Sexual activity: Defer Alcohol Use: Heavy Drinker Frequency of Alcohol Consumption: 2-4 times a month Average Number of Drinks: 3 or 4 Frequency of Binge Drinking: Monthly FAMILY HISTORY His family history includes Abdominal Aortic Aneurysm in his mother; Cancer in his father; Hypertension in his father; Stroke in his father. REVIEW OF SYSTEM Review of systems was reviewed with the patient PATIENT-REPORTED OUTCOMES PROMIS 01/06/2022 Upper Extremity V2.0 27.8 Pain Interference 64.2 Physical Function V2.0 36.5 Anxiety V1.0 50.3 Depression 57.5 PHYSICAL EXAMINATION He is 6 ft tall weighs 250 lb Focused examination of the left and right shoulder shows with elevation he can achieve 120?? on theleft and 160?? on the right. He has tenderness palpation over the bicipital groove on the left sidemore so than on the right. He does get some pain over the anterior shoulder with impingement testing but this is worse with external rotation in abduction. He has full strength with manual motor testing of the rotator cuff throughout. Belly press test is negative but generates pain. Acromioclavicular joint is nontender. Distal motor and sensory function is normal. REVIEW OF X-RAYS/STUDIES X-rays were independently interpreted by me today and demonstrate a concentrically reduced glenohumeral joint with a well-maintained joint space. No significant radiographic signs of glenohumeral arthritis are noted. There is no evidence for fracture. X-rays are within normal limits. IMPRESSION/DIAGNOSIS Left greater than right bilateral shoulder pain consistent with rotator cuff sources versus possible biceps tenosynovitis TREATMENT PLAN I have recommended a ultrasound of both shoulders to evaluate the rotator cuff as well as the biceps tendon long head in both shoulders. I will plan to follow up the via telephone after the ultrasound is complete to discuss options moving forward. He may benefit from an image guided glenohumeral injection depending on findings of the ultrasound. All questions were answered today FOLLOW-UP After the ultrasound Wade Parker MD, MSc, [employer] Loss Assessor of Orthopedic Surgery Director, Shoulder and Elbow Reconstruction Fellowship Shoulder and Elbow Service [facility] Orthopedics [facility] Dr. Wade Parker dictating using Fluency Direct. Last Picker variances may occur. E CHECKER documented in this encounter Plan of Treatment Not on file documented as of this encounter Results * US Shoulder Bilateral Complete (01/13/2022 4:02 PM TITLE CHECKER) Anatomical Region Laterality Modality Shoulder N/A Ultrasound 01/13/2022 4:47 PM TITLE CHECKER Impressions 01/13/2022 5:14 PM TITLE CHECKER 1. ??2.8 x 2.0 cm near full/full-thickness [...] Blanco Mark MD Narrative 01/13/2022 5:14 PM TITLE CHECKER EXAMINATION: Bilateral shoulder sonogram, complete HISTORY: Bilateral [...] MD IMG US PROCEDURES Jayde l Result * XR Shoulder Bilateral 2 or More Views (01/06/2022 10:31 AM TITLE CHECKER) Anatomical Region Laterality Modality Upper Extremities, Shoulder Comp uted Radiography 01/06/2022 10:4 9 AM TITLE CHECKER Impressions 01/06/2022 10:49 AM TITLE CHECKER Normal radiographs of both shoulders. Electronically signed by: Flynn Jay M.D. Narrative 01/06/2022 10:49 AM TITLE CHECKER EXAMINATION: Bilateral shoulder minimum 2 views each HISTORY: Shoulder pain FINDINGS: 4 views of each shoulder were performed without prior comparison. Alignment of the right shoulder is normal. Right shoulder joint spaces are normal. There is no acute fracture of the shoulder. Alignment of the left shoulder is normal. Left shoulder joint spaces are normal. There is no acute fracture of the shoulder. Procedure Note Flynn Jay MD PhD - 01/06/2022 EXAMINATION: Bilateral shoulder minimum 2 views each HISTORY: Shoulder pain FINDINGS: 4 views of each shoulder were performed without prior comparison. Alignment of the right shoulder is normal. Right shoulder joint spaces are normal. There is no acute fracture of the shoulder. Alignment of the left shoulder is normal. Left shoulder joint spaces are normal. There is no acute fracture of the shoulder. IMPRESSION: Normal radiographs of both shoulders. Electronically signed by: Flynn Jay M.D. us Wade Parker MD IMG XR PROCEDURES Jayde l Result documented in this encounter Visit Diagnoses Diagnosis Bilateral shoulder pain, unspecified chronicity- Primary Bilateral shoulder pain, unspecified chronicity Bilateral shoulder pain, unspecified chronicity documented in this encounter Care Teams Behavioral Technician Relationship Specialty Start Date End Date Mike Mitchell MD PCP - General Family Practice 01/16/21 documented as of this encounter
--- OUTSIDE RECORDS SUMMARY | 2024-01-30 08:16 | XMS_ITS | Encounter Summary ---
Author Organization [facility] Address [address] [place] [address] Phone Care Team Providers Care Raw Sampler Name Role Phone Mike Mitchell MD Primary Care Provider [phone] Encounter Details Date Type Department Care Team (Late st Contact Info) Description 01/13/2022 4:20 PM PEOPLE GREETER Telemedicine [facility] Orthopaedic Surgery [address] [facility] 2nd Floor [address] [place] [address] Wade Parker MD [address] [facility] [address] [place] [address] Complete tear of left rotator cuff, unspecified whether traumatic (Primary Dx); Incomplete rotator cuff tear or rupture of right shoulder, not specified as traumatic Social History Tobacco Use Types Packs/Day Years [...] on file Legal Sex Male 8:42 AM PEOPLE GREETER Gender Identity Not on file Sexual Orientation Straight 04/01/2020 8: 42 PM PEOPLE GREETER documented as of this encounter Progress Notes * Wade Parker MD - 01/13/2022 4:20 PM CST Images from the original note were not included. ESTABLISHED PATIENT VISIT INTERIM HISTORY Kris Spence follows up today after his ultrasound. PHYSICAL EXAMINATION No acute distress, alert and oriented X 3. Unchanged from previous REVIEW OF X-RAYS/STUDIES Ultrasound demonstrates a full-thickness tear of the supraspinatus measuring 1.5 x 1.3 cm on the left shoulder. On the right shoulder he has a high-grade partial-thickness tear with a measurement of 2.8 cm x 2.0 cm. Signs of biceps tenosynovitis are noted in both shoulders. IMPRESSION/DIAGNOSIS Left shoulder full-thickness medium-sized rotator cuff tear right shoulder high- grade partial-thickness rotator cuff tear per ultrasound findings and possible biceps tenosynovitis TREATMENT/PLAN We had a discussion today regarding the findings on ultrasound in both shoulders. We reviewed management options moving forward. He is had a prior injection in the left shoulder and exhausted nonsurgical treatment including supervised physical therapy and 10s unit and other medication management. He is unable to take anti-inflammatories due to his inflammatory bowel disease. We discussed that definitive management at this point would include likely arthroscopic rotator cuff repair and open biceps tenodesis. With regard to the right shoulder he is never had an injection in that side and would like to entertain the idea of an injection which I think is reasonable. He would like to consider these options for the shoulders and determine what timing would work best for him and he will call andlet us know if and when he would like to proceed. All questions were answered today. FOLLOW UP Per above Wade Parker MD, MSc Help Aid of Orthopedic Surgery Shoulder and Elbow Service [facility] Orthopedics [facility] Dr. Wade Parker dictating using Fluency Direct. Glass Toughening Operator variances may occur. This was a telemedicine visit with Kris Powers Jordy alone which took place via Telephone Inability or lack of knowledge to set up audio/visual visit. During the visit, I was located in the office andthe patient was located at home in the [facility] [place]. The patient visit started at 5:15 p.m. and ended at 5:24 p.m.. My total encounter time on 01/13/2022 was 9 minutes which was spent in the activitiesdocumented in the note. This includes time spent prior to the visit and after the visit in direct care of the patient. This time does not include time spent in any separately reportable services.. The patient has been informed that the visit may not be secure and acknowledged the information. The option of participating in a telephone or video visit during the COVID-19 public health emergency was explained to them. After being given an opportunity to ask questions about and discuss this typeof visit, they verbally consented to proceeding with the telephone/video visit and understand that this service replaces an office visit. Wade Parker MD LE GREETER documented in this encounter Plan of Treatment Not on file documented as of this encounter Visit Diagnoses Diagnosis Complete tear of left rotator cuff, unspecified whether traumatic- Primary Incomplete rotator cuff tear or rupture of right shoulder, not specified as traumatic documented in this encounter Care Teams Raw Sampler Relationship Specialty Start Date End Date Mike Mitchell MD PCP - General Family Practice 01/16/21 documented as of this encounter
--- OUTSIDE RECORDS SUMMARY | 2024-01-30 08:16 | XMS_ITS | Encounter Summary ---
Author Organization [facility] Address [address] [place] [address] Phone Care Team Providers Care Rehabilitation Services Counselor Name Role Phone Mike Mitchell MD Primary Care Provider [phone] [phone] Encounter Details Date Type Department Care Team (Late st Contact Info) Description 09/02/2021 Orders Only [facility] Gastroenterology [address] [facility] [address] 12th [place] [address] [place] [address] Brenda Stewart Joint stiffness (Primary Dx); Crohn's 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 (CMS/HCC) (HCC); High risk medications (not anticoagulants) long-term use [...] on file 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 Gender Identity Not on file Sexual Orientation Straight 04/01/2020 8: 42 PM WATER METER INSTALLER documented as of this encounter Ordered Prescriptions Prescription Sig Dispense Quantity Refills Last Filled Start Date End Date sulfaSALAzine (AZULFIDINE) 500 mg tabletIndications: Crohn's 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 (CMS/HCC) (HCC),High risk medications (not anticoagulants) long-term use Take 8 Tablets Daily for joint stiffness 240 tablet 11 09/02/2021 3 documented in this encounter Plan of Treatment Not on file documented as of this encounter Visit Diagnoses Diagnosis Joint stiffness- Primary Stiffness of joint, not elsewhere classified, unspecified site Crohn's 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 (CMS/HCC) (HCC) High risk medications (not anticoagulants) long-term use Encounter for long-term (current) use of other medications documented in this encounter Discontinued Medications Medication Sig Discontinue Reason Start Date End Da te sulfaSALAzine (AZULFIDINE) 500 mg tabletIndications:arthra lgia TAKE 2 TABLETS UP TO THREE TIMES A DAY NEEDED Other 08/20/2021 09/02/2021 documented as of this encounter Care Teams Rehabilitation Services Counselor Relationship Specialty Start Date End Date Mike Mitchell MD PCP - General Family Practice 01/16/21 documented as of this encounter
--- OUTSIDE RECORDS SUMMARY | 2024-01-30 08:16 | XMS_ITS | Encounter Summary ---
Author Organization [facility] Address [address] [place] [address] Care Team Providers Care Field Marketing Specialist Name Role Phone Mike Mitchell MD Primary Care Provider [phone] Encounter Details Date Type Department Care Team (Latest Contact Info) Description 01/06/2022 10:23 AM STOCK AND STATION AGENT - 01/06/2022 11:59 PM STOCK AND STATION AGENT Hospital Encounter [facility] [address] [place] [address] Bilateral shoulder pain, unspecified chronicity Discharge Disposition: [...] on file Legal Sex Male 8:42 AM STOCK AND STATION AGENT Gender Identity Not on file Sexual Orientation Straight 04/01/2020 8: 42 PM STOCK AND STATION AGENT documented as of this encounter Medications at [...] Take 1 tablet by mouth every morning testosterone cypionate (DEPO-TESTOTERONE) 200 mg/mL injectionIndications: Androgen Deficiency Inject 0.5 mL (100 mg total) into the muscle as instructed every 14 (fourteen) days 1 acetaminophen 500 mg capsule Take 2 capsules [...] needed 180 tablet 2 2 01/19/20 22 ud-cvt-smahr acid-lutein 400-250 mcg tablet,chewable Take by mouth 22 sildenafiL, pulm.hypertension, (REVATIO) 20 mg tablet Take 5 mg by mouth as needed 4 01/26/20 22 sulfaSALAzine (AZULFIDINE) 500 mg tabletIndications:Turbine Measurements 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 hn's 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 [...] Priority Date/Time Associated Diagnosis Comments XR SHOULDER BILATERAL 2+ VIEWS Schedule Routine, Read Routine (OP Routine) 01/06/2022 10:31 AM STOCK AND STATION AGENT Bilateral shoulder pain, unspecified chronicity documented in this encounter Results * XR Shoulder Bilateral 2 or More Views (01/06/2022 10:31 AM STOCK AND STATION AGENT) Anatomical Region Laterality Modality Upper Extremities, Shoulder Comp uted Radiography 01/06/2022 10:4 9 AM STOCK AND STATION AGENT Impressions 01/06/2022 10:49 AM STOCK AND STATION AGENT Normal radiographs of both shoulders. Electronically signed by: Flynn Jay M.D. Narrative 01/06/2022 10:49 AM STOCK AND STATION AGENT EXAMINATION: Bilateral shoulder minimum 2 views each [...] documented in this encounter Care Teams Field Marketing Specialist Relationship Specialty Start Date End Date Mike Mitchell MD PCP - General Family Practice 01/16/21 documented as of this encounter
--- OUTSIDE RECORDS SUMMARY | 2024-01-30 08:16 | XMS_ITS | Encounter Summary ---
Author Organization [facility] Address [address] [place] [address] Phone Care Team Providers Care Integrity Engineer Name Role Phone Mike Mitchell MD Primary Care Provider [phone] [phone] Reason for Visit * Episode Based Medications (Routine) - Closed Specialty Diagnoses / Procedures Referred By Contac t Referred To Contact Diagnoses Crohn's disease of ileum with complication (HCC) Procedures IN INFLIXIMAB NOT BIOSIMIL 10MG Julia Moreno MD [address] [place] [address] Phone: tel: fax: [facility] Infusion Therapy [address] [place] [address] 5th [place] [address] [place] [address] Phone: tel: fax: Referral ID Status Reason Start Date Expiration Date Visits Re quested Visits Authorized [id number] Closed 08/31/2022 09/01/2023 26 26 Encounter Details Date Type Department Care Team (Late st Contact Info) Description 09/14/2021 9:00 AM CDT Infusion [facility] Infusion Therapy [facility] 5th [place] [address] [place] [address] Crohn's disease of ileum with [...] on file Legal Sex Male 8:42 AM 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 No S/S of adverse reaction. VSS. Follow up scheduled. Jin Hanks RN documented in this encounter Plan of Treatment Not on file documented as of this encounter Procedures Procedure Name Priority Date/Time Associated Diagnosis Comments CBC WITH AUTO DIFFERENTIAL Routine 09/14/2021 9:10 AM CDT Crohn's disease of ileum with complication (CMS/HCC) (HCC) HEPATIC FUNCTION PANEL Routine 09/14/2021 9:10 AM CDT Crohn's disease of ileum with complication (CMS/HCC) (HCC) documented in this encounter Results * CBC with auto differential (09/14/2021 9:10 AM CDT) White Blood Count 5.7 3.6 - 11.2 K/uL [facility] RBC 4.97 4.06 - 5.63 M/uL [facility] Hemoglobin 15.6 13.0 - 17.5 g/dL [facility] Comment:Repeated and Verifie d Hematocrit 45.2 40.7 - 50.3 % [facility] Comment:Repeated and Verifie d MCV 91.0 80.0 - 97.6 fL [facility] MCH 31.3 26.7 - 33.7 pg [facility] MCHC 34.4 32.7 - 35.5 g/dL [facility] RBC Dist Width 13.1 12.3 - 17.0 % [facility] Platelet Count 223 140 - 440 K/uL [facility] Comment:Repeated and Verifie d MPV 8.9 6.8 - 10.4 fL [facility] Neutrophils % 61.0 38.7 - 74.5 % [facility] Lymphocyte % 28.9 20.0 - 54.3 % [facility] Monocytes % 9.0 4.3 - 13.5 % [facility] Eosinophils % 0.9 0.0 - 6.0 % [facility] Basophil % 0.2 0.0 - 3.0 % [facility] Absolute Neutrophil 3.4 1.8 - 6.6 K/uL [facility] Absolute Lymphocyte 1.6 0.8 - 3.3 K/uL [facility] Absolute Monocyte 0.5 0.2 - 1.2 K/uL [facility] Absolute Eosinophil 0.1 0.0 - 0.5 K/uL [facility] Absolute Basophil 0.0 0.0 - 0.2 K/uL [facility] Nucleated RBC % 0.1 0.0 - 0.4 /100 WBC [facility] Blood specimen (specimen) 09/14/2021 9:10 AM CDT 09/14/2021 10:14 AM CDT us Julia Moreon MD LAB BLOOD ORDERABLE S Final Result [facility] * Hepatic function panel (09/14/2021 9:10 AM CDT) Direct Bilirubin 0.08 0.00 - 0.30 mg/dL [facility] AST (SGOT) 22 11 - 47 IU/L [facility] ALT (SGPT) 24 6 - 53 IU/L [facility] Alk Phos, Total 67 35 - 129 IU/L [facility] Albumin 4.8 3.5 - 5.2 g/dL [facility] Total Bilirubin 0.40 0.20 - 1.40 mg/dL [facility] Total Protein 7.4 6.1 - 8.4 g/dL [facility] Blood specimen (specimen) 09/14/2021 9:10 AM CDT 09/14/2021 10:14 AM CDT us Julia Moreno MD LAB BLOOD ORDERABLE S Final Result [facility] documented in this encounter Visit Diagnoses Diagnosis Crohn's disease of ileum with complication (HCC)- Primary documented in this encounter Administered Medications Inactive Administered Medications - up to 3 most recent administrations Medication Order MAR Action Action Date Dose Rate Site acetaminophen (TYLENOL) tablet 500 mg 500 mg, oral, Once, On Tue09/14/21 at 0930, For 1 dose, Please give 30 minutes prior to infusion for infusion reaction prophylaxis.Indications:Crohn's disease of ileum with complication (HCC) Given 09/14/2021 9:05 AM CDT 500 mg inFLIXimab (REMICADE) 1,200 mg in sodium chloride 0.9% 500 mL IVPB 1,200 mg, intravenous, Administer over 2 Hours, Once, On Tue09/14/21 at 0930, For 1 dose, Infuse with filter tubing [...] of ileum with complication (HCC) New Bag 09/14/2021 9:20 AM CDT 1,200 mg documented in this encounter Orders Nursing Count Last Ordered Date First Orde red Date HEIGHT AND WEIGHT 1 09/14/2021 ONCBCN NURSING COMMUNICATION [id number] 1 0 09/14/2021 VITAL SIGNS INTRA-INFUSION 1 09/14/2021 documented in this encounter Care Teams Integrity Engineer Relationship Specialty Start Date End Date Mike Mitchell MD PCP - General Family Practice 01/16/21 documented as of this encounter
--- OUTSIDE RECORDS SUMMARY | 2024-01-30 08:17 | XMS_ITS | Encounter Summary ---
Author Organization [facility] Address [address] [place] [address] Phone Care Team Providers Care Group Burner Machine Name Role Phone Mkie Mitchell MD Primary Care Provider [phone] [phone] Encounter Details Date Type Department Care Team (Late st Contact Info) Description 06/10/2021 4:00 PM CDT Office Visit 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 Gender Identity Not on file Sexual Orientation Straight 04/01/2020 8: 42 PM SUPERVISOR TAN ROOM documented as of this encounter Last Filed Vital Signs Vital Sign Reading Time Taken Comments Blood Pressure 163/114 06/10/2021 3:36 PM CDT Pulse 84 06/10/2021 3:36 PM CDT Temperature 35.6 ??C (96.1 ??F) 06/10/2021 3:36 PM CD T Respiratory Rate - - Oxygen Saturation - - Inhaled Oxygen Concentration - - Weight 116.3 kg (256 lb 6.4 oz) 06/10/2021 3:36 PM CDT Height 182.9 cm (6') 06/10/2021 3:36 PM CDT Body Mass Index 34.77 06/10/2021 3:36 PM CDT documented in this encounter Progress Notes * Ky Sheth MD - 06/10/2021 4:00 PM CDT Images from the original note were not included. [facility] Established Patient Kris Spenec : 1960 REFERRING PHYSICIAN - Mike Mitchell MD PCP - Mike Mitchell MD Reason for Visit: 2nd post-op visit Date of last visit: May 08 HPI: Kris Spence is a 61 y.o. male who is returning for his 2nd postoperative visit after openincisional hernia repair abdominal reconstruction. Running quite well. He is back to playing golf and doing his normal activities. He has tried exercise and be active. He denies any trouble with eating or drinking. Physical Exam: Vitals BP (!) 163/114 (BP Location: Left arm, Patient Position: Sitting) Pulse 84 Temp (!) 35.6 ??C (96.1 ??F) (Temporal) Ht 182.9 cm (6') Wt 116.3 kg (256 lb 6.4 oz) BMI 34.77 kg/m?? Body mass index is 34.77 kg/m??. Physical Exam Constitutional: Appearance: He is well-developed. HENT: Head: Normocephalic and atraumatic. Eyes: Conjunctiva/sclera: Conjunctivae normal. Cardiovascular: Rate and Rhythm: Normal rate. Pulmonary: Effort: Pulmonary effort is normal. Abdominal: Palpations: Abdomen is soft. Hernia: No hernia is present. Comments: Well healed surgical scar Musculoskeletal: General: Normal range of motion. Cervical back: Normal range of motion. Skin: General: Skin is warm and dry. Neurological: Mental Status: He is alert and oriented to person, place, and time. Assessment/Plan: 61 y.o. male presenting for 2nd follow-up after open incisional hernia repair abdominal reconstruction in April. He is overall doing quite well. He has no evidence of hernia recurrence. He is okay tocontinue with his activities as tolerated. I would like to see him back in 1 year sooner if he has any issues. We did discuss the importance of maintaining his weight to minimize the risk for hernia recurrence. Ky Sheth MD, FACS Minimally Invasive GI Surgery & Abdominal Wall Reconstruction property claims adjuster [facility] [phone] documented in this encounter Plan of Treatment Not on file documented as of this encounter Visit Diagnoses Diagnosis History of incisional hernia repair- Primary documented in this encounter Care Teams Group Burner Machine Relationship Specialty Start Date End Date Mike Mitchell MD PCP - General Family Practice 01/16/21 documented as of this encounter
--- OUTSIDE RECORDS SUMMARY | 2024-01-30 08:17 | XMS_ITS | Encounter Summary ---
Author Organization [facility] Address [address] [place] [address] Phone Care Team Providers Care Industrial Automation Engineer Name Role Phone Mike Mitchell MD Primary Care Provider [phone] [phone] Encounter Details Date Type Department Care Team (Late st Contact Info) Description 05/08/2021 2:30 PM CDT Office Visit [facility] [address] [place] [address] Medical Office Building [address] [place] [address] Ky Sheth MD [address] [place] [address] Postop check (Primary Dx); History of incisional hernia repair Social History Tobacco Use Types Packs/Day Years [...] on file Legal Sex Male 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 Gender Identity Not on file Sexual Orientation Straight 04/01/2020 8: 42 PM DIRECTOR OF SALES SUPPORT documented as of this encounter Last Filed Vital Signs Vital Sign Reading Time Taken Comments Blood Pressure 143/87 05/08/2021 2:49 PM CDT Pulse 91 05/08/2021 2:49 PM CDT Temperature 36.4 ??C (97.5 ??F) 05/08/2021 2:49 PM CD T Respiratory Rate - - Oxygen Saturation - - Inhaled Oxygen Concentration - - Weight 114.6 kg (252 lb 9.6 oz) 05/08/2021 2:49 PM CDT Height 182.9 cm (6') 05/08/2021 2:49 PM CDT Body Mass Index 34.26 05/08/2021 2:49 PM CDT documented in this encounter Patient Instructions * Patient Instructions* Ky Sheth MD - 05/08/2021 2:30 PM CDT Images from the original note were not included. Scholrly Were you happy with your care? We appreciate your feedback and review. Follow the steps below to submit an online review. 1. Visit [email or web address] 2. Search for Ky Sheth if doesn't come up (Scan with your phone) 3. Click on Ratings 4. Click on Leave a review Thank you, and we appreciate your time. documented in this encounter Progress Notes * Ky Sheth MD - 05/08/2021 2:30 PM CDT Images from the original note were not included. [facility] Post-Operative Note Kris Spence : 1960 REFERRING PHYSICIAN - Mike Mitchell MD PCP - Mike Mitchell MD DATE OF OPERATION: 04/13/2021 PROCEDURE PERFORMED: Open repair of recurrent, incarcerated incisional hernia with mesh, Abdominal wall reconstruction, and Removal of mesh DATE OF DISCHARGE: 04/17/2021 HISTORY OF PRESENT ILLNESS: The patient is a 61 y.o. male presenting 3 weeks post-op from incisional hernia repair abdominal reconstruction. He is overall doing well. He is tolerating a diet and moving his bowels regularly. His incision is healing well. He reports that he is feeling great and much better than he anticipated. PHYSICAL EXAM: Vitals BP 143/87 (BP Location: Left arm, Patient Position: Sitting) Pulse 91 Temp 36.4 ??C (97.5 ??F) (Temporal) Ht 182.9 cm (6') Wt 114.6 kg (252 lb 9.6 oz) BMI 34.26 kg/m?? GENERAL: Well-appearing individual in no acute distress. NEURO: Alert and oriented x3. LUNGS: Breathing comfortably on room air. CARDIO: Regular rate and rhythm. ABDOMEN: Soft, non-tender. No evidence of hernia recurrence INCISION: Well healed without evidence of infection ASSESSMENT AND PLAN: 61 y.o. male who is 3 weeks following Open repair of recurrent, incarcerated incisional hernia withmesh, Abdominal wall reconstruction, and Removal of mesh. We removed their marga in the office today. He is ok to slowly increase his activity. I will plan to see him back in 1 month. Ky Sheth MD, FACS Minimally Invasive GI Surgery & Abdominal Wall Reconstruction terminologist [facility] [phone] documented in this encounter Plan of Treatment Not on file documented as of this encounter Visit Diagnoses Diagnosis Postop check- Primary Follow-up examination, following unspecified surgery History of incisional hernia repair documented in this encounter Discontinued Medications Medication Sig Discontinue Reason Start Date End Da te oxyCODONE (ROXICODONE) 5 mg immediate release tabletIndications:Pain Take 1 tablet (5 mg total) by mouth every 4 (four) hours as needed (breakthrough pain) May space to every 6 hours as tolerated. Please discard unused medication as instructed Other 04/17/2021 05/08/2021 documented as of this encounter Care Teams Industrial Automation Engineer Relationship Specialty Start Date End Date Mike Mitchell MD PCP - General Family Practice 01/16/21 documented as of this encounter
--- OUTSIDE RECORDS SUMMARY | 2024-01-30 08:17 | XMS_ITS | Encounter Summary ---
Author Organization [facility] Address [address] [place] [address] Care Team Providers Care Business Objects Developer Name Role Phone Mike Mitchell MD Primary Care Provider [phone] [phone] Encounter Details Date Type Department Care Team (Latest Contact Info) Description 06/23/2021 9:20 AM CDT - 06/23/2021 11:59 PM CDT Hospital Encounter [address] [address] Discharge Disposition: Discharge to home or self [...] on file Legal Sex Male 8:42 AM AGITATOR OPERATOR Gender Identity Not on file Sexual Orientation Straight 04/01/2020 8: 42 PM AGITATOR OPERATOR documented as of this encounter Medications at Time of Discharge allopurinoL (ZYLOPRIM) 100 mg tabletIndications:pre vention of acute gout attack Take 1 tablet (100 mg total) by mouth 2 (two) times a day 0 chlorthalidone 25 mg tabletIndications:hyp ertension Take 1 tablet (25 mg total) by mouth every morning [address] (NexIUM) 20 mg capsuleIndications:Tr eatment [...] as needed for pain 2 01/26/20 22 cholecalciferol (VITAMIN D-3) 2000 unit tabletIndications:Low serum vitamin D TAKE 1 TABLET BY MOUTH EVERY DAY 90 tablet 3 1 01/05/20 22 gabapentin (NEURONTIN) 300 mg capsuleIndications:Ne uropathic [...] times daily as needed 180 tablet 2 01/13/202 2 01/19/20 22 sildenafiL, pulm.hypertension, (REVATIO) 20 mg tablet Take 5 mg by mouth as needed 4 01/26/20 22 sulfaSALAzine (AZULFIDINE) 500 mg tabletIndications:art hralgia TAKE 2 TABLETS UP TO THREE TIMES A DAY NEEDED 180 tablet 2 2 08/21/19 22 UNABLE TO FIND Take 1 each by [...] Procedure Name Priority Date/Time Associated Diagnosis Comments REFLEX TO INFLIXIMAB, QUANTITATIVE Routine 06/23/2021 9:31 AM CDT documented in this encounter Results * Reflex to Infliximab, quantitative (06/23/2021 9:31 AM CDT) Anti infliximab ab <20.0 <50.0 units/mL [facility] Infliximab Antibody Interp See Footnote [facility] Comment: Absence of detectable [id number]. Low concentration of infliximab may be attributable to other parameters related to infliximab clearance. ADDITIONAL INFORMATION This test was developed and its performance characteristics determined by [facility] in a manner consistent with CLIA requirements. This test has not been cleared or approved by the U.S. Food and Drug Administration. Test Performed by: [facility] [id number] [place] [address] Pulling Unit Floorhand: Cam Molina M.D. Ph.D.; CLIA# [id number] Blood 06/23/2021 9:31 AM CDT 06/23/2021 9:54 AM CDT Julia Moreno MD LAB BLOOD ORDERABLE S Final Result Performing Organization Address City/State/[facility] Co de Phone Number [facility] Department [place] [address] documented in this encounter Visit Diagnoses Not on filedocumented in this encounter Care Teams Business Objects Developer Relationship Specialty Start Date End Date Mike Mitchell MD PCP - General Family Practice 01/16/21 documented as of this encounter
--- OUTSIDE RECORDS SUMMARY | 2024-01-30 08:17 | XMS_ITS | Encounter Summary ---
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 Done on Remicade 1,200 mg Q8 weeks. Current wt: 116.3 kg. Per RN PROCEDURES Keya Dan, still a little low. Would like to advocate for q6w dosing. IFX therapy plan updated to reflect this change. Lab orders also updated so that labs can be drawn with every other infusion (every 12 wks approx). Routed plan to pre-cert team and asked that they obtain new auth VICKI. Infusion team cc'd so that they are aware of plan as well. Reminder set for follow up. * Lety Corral LPN - 06/30/2021 5:48 AM CDT 07/23/21: Update received from pre-cert team (Fatoumata Mauro). Auth has been obtained for Q6 week Remicade. Pt's infusion appt is currently scheduled for 08/18/2021 would need to be bumped up by 2 weeks. Infusion team notified. Pt also notified via [employer] portal msg. documented in this encounter Plan of Treatment Not on file documented as of this encounter Visit Diagnoses Not on filedocumented in this encounter Care Teams Doctor Of Pharmacy Relationship Specialty Start Date End Date Mike Mitchell MD PCP - General Family Practice 01/16/21 documented as of this encounter
--- OUTSIDE RECORDS SUMMARY | 2024-01-30 08:17 | XMS_ITS | Encounter Summary ---
Author Organization [facility] Address [address] [place] [address] Phone Care Team Providers Care Communication Specialist Name Role Phone Mike Mitchell MD Primary Care Provider +1 [phone] Reason for Visit * Episode Based Medications (Routine) - Closed Specialty Diagnoses / Procedures Referred By Contac t Referred To Contact Diagnoses Crohn's disease of ileum with complication (HCC) Procedures GA INFLIXIMAB NOT BIOSIMIL 10MG Julia Moreno MD [address] [place] [address] Phone: tel: fax: [facility] Infusion Therapy [facility] 5th [place] [address] [place] [address] Phone: tel: fax: Referral ID Status Reason Start Date Expiration Date Visits Re quested Visits Authorized [id number] Closed 08/31/2022 09/01/2023 26 26 Encounter Details Date Type Department Care Team (Late st Contact Info) Description 06/23/2021 9:[address] [facility] Infusion Therapy 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 No S/S of adverse reaction. VSS. Follow up scheduled. Jin Hanks RN documented in this encounter Plan of Treatment Not on file documented as of this encounter Procedures Procedure Name Priority Date/Time Associated Diagnosis Comments INFLIXIMAB LEVEL Routine 06/23/2021 9:31 AM CDT Crohn's disease of ileum with complication (CMS/HCC) (HCC) DIFFERENTIAL AUTO Routine 06/23/2021 9:3 1 AM CDT Crohn's disease of ileum with complication (CMS/HCC) (HCC) CBC WITH AUTO DIFFERENTIAL Routine 06/23/2021 9:31 AM CDT Crohn's disease of ileum with complication (CMS/HCC) (HCC) HEPATIC FUNCTION PANEL Routine 06/23/2021 9:31 AM CDT Crohn's disease of ileum with complication (CMS/HCC) (HCC) documented in this encounter Results * Differential, auto (06/23/2021 9:31 AM CDT) Neutrophil abs 3.2 1.7 - 6.5 K/cumm [facility] Imm gran abs 0.0 0.0 - 0.1 K/cumm [facility] Lymphocyte abs 1.6 0.8 - 3.3 K/cumm [facility] Monocyte abs 0.5 0.2 - 0.8 K/cumm [facility] Eosinophil abs 0.1 0.0 - 0.5 K/cumm [facility] Basophil abs 0.0 0.0 - 0.1 K/cumm [facility] Neutrophil pct 59.5 % [facility] Comment: Interpretive Data Percent cell count reference ranges are not reported, since discordance with absolute values may lead to misinterpretation of CBC data. Current Interpretive Data was last revised on 2017. Imm gran pct 0.2 % [facility] Comment: Interpretive Data Percent cell count reference ranges are not reported, since discordance with absolute values may lead to misinterpretation of CBC data. Current Interpretive Data was last revised on 2017. Lymphocyte pct 29.5 % [facility] Comment: Interpretive Data Percent cell count reference ranges are not reported, since discordance with absolute values may lead to misinterpretation of CBC data. Current Interpretive Data was last revised on 2017. Monocyte pct 8.9 % [facility] Comment: Interpretive Data Percent cell count reference ranges are not reported, since discordance with absolute values may lead to misinterpretation of CBC data. Current Interpretive Data was last revised on 2017. Eosinophil pct 1.3 % [facility] Comment: Interpretive Data Percent cell count reference ranges are not reported, since discordance with absolute values may lead to misinterpretation of CBC data. Current Interpretive Data was last revised on 2017. Basophil pct 0.6 % [facility] Comment: Interpretive Data Percent cell count reference ranges are not reported, since discordance with absolute values may lead to misinterpretation of CBC data. Current Interpretive Data was last revised on 2017. Blood 06/23/2021 9:31 AM CDT 06/23/2021 9:51 AM CDT Julia Moreno MD LAB BLOOD ORDERABLE S Final Result [facility] [place] [address] * CBC with auto differential (06/23/2021 9:31 AM CDT) WBC 5.3 3.8 - 9.9 K/cumm [facility] Hgb 15.3 13.0 - 17.5 g/dL [facility] Hct 44.7 38.9 - 50.3 % [facility] Plt 238 150 - 400 K/cumm [facility] MPV 10.0 9.1 - 12.3 fL [facility] RBC 5.15 4.30 - 5.80 M/cumm [facility] MCV 86.8 81.3 - 96.4 fL [facility] MCH 29.7 27.1 - 33.3 pg [facility] MCHC 34.2 32.3 - 35.7 g/dL [facility] RDW CV 12.4 11.1 - 14.9 % [facility] RDW SD 39.4 35.7 - 48.1 fL [facility] NRBC abs 0.00 0.00 - 0.01 K/cumm [facility] Blood 06/23/2021 9:31 AM CDT 06/23/2021 9:51 AM CDT Julia Moreno MD LAB BLOOD ORDERABLE S Final Result [facility] [place] [address] * Hepatic function panel (06/23/2021 9:31 AM CDT) Bilirubin, total 0.3 0.1 - 1.2 mg/dL [facility] Bilirubin, direct <0.2 0.1 - 0.3 mg/dL [facility] Protein, pl 7.3 6.5 - 8.5 g/dL [facility] Albumin 4.6 3.5 - 5.0 g/dL [facility] Alk phos 53 40 - 130 Units/L [facility] ALT 21 7 - 55 Units/L [facility] AST 28 10 - 50 Units/L [facility] Blood 06/23/2021 9:31 AM CDT 06/23/2021 9:51 AM CDT us Julia Moreno MD LAB BLOOD ORDERABLE S Final Result [facility] Department [place] [address] * (ABNORMAL) Infliximab level (06/23/2021 9:31 AM CDT) [facility] Infliximab 4.4(L) mcg/mL [facility] Comment: REFERENCE VALUE Limit of Quantitation = 1.0 mcg/mL Infliximab interp See Footnote [facility] Comment: For concentrations of infliximab less than or equal to 5.0 mcg/mL, reflex testing for lvyagjxdfe-ag-ohbasigwjk will be performed. ADDITIONAL INFORMATION This test was developed and its performance characteristics determined by [facility] in a manner consistent with CLIA requirements. This test has not been cleared or approved by the U.S. Food and Drug Administration. Test Performed by: [facility] - [facility] [address] [place] [address] Press Operator [employer]: Cam Molina M.D. Ph.D.; CLIA# [id number] Blood 06/23/2021 9:31 AM CDT 06/23/2021 9:54 AM CDT us Julia Moreno MD LAB BLOOD ORDERABLE S Final Result [facility] Department [place] [address] documented in this encounter Visit Diagnoses Diagnosis Crohn's disease of ileum with complication (HCC)- Primary documented in this encounter Administered Medications Inactive Administered Medications - up to 3 most recent administrations Medication Order MAR Action Action Date Dose Rate Site inFLIXimab (REMICADE) 1,200 mg in sodium chloride 0.9% 500 mL IVPB 1,200 mg, intravenous, Administer over 2 Hours, Once, On Tue06/23/21 at 1015, For 1 dose, Infuse with filter tubing MAINTENANCE DOSE: Administer every 8 weeks. Dose increased to 10 mg/kg based on low IFX level from 01/05/2021. For 200 ml lnititate therapy at 10mI/hour [...] of ileum with complication (HCC) New Bag 06/23/2021 9:30 AM CDT 1,200 mg documented in this encounter Orders Medications Ordered That Po ht Not Have Been Administered Count Last Ordered Date First Ordered Date inFLIXimab (REMICADE) 1,200 mg in sodium chloride 0.9% 500 mL IVPB 1 06/23/2021 Nursing Count Last Ordered Date First Orde red Date VITAL SIGNS INTRA-INFUSION 1 06/23/2021 documented in this encounter Care Teams Communication Specialist Relationship Specialty Start Date End Date Mike Mitchell MD PCP - General Family Practice 01/16/21 documented as of this encounter
--- OUTSIDE RECORDS SUMMARY | 2024-01-30 08:17 | XMS_ITS | Encounter Summary ---
Author Organization [facility] Address [address] [place] [address] Phone Care Team Providers Care Training Executive Name Role Phone Mike Mitchell MD Primary Care Provider [phone] [phone] Encounter Details Date Type Department Care Team (Late st Contact Info) Description 04/28/2021 9:00 AM CDT Lab [facility] Endocrinology Metabolism and Lipid [address] [facility] 5th [place] [address] [place] [id number] Crohn's disease of ileum with complication (CMS/HCC) [...] on file Legal Sex Male 8:42 AM PROJECT MANAGEMENT Gender Identity Not on file Sexual Orientation Straight 04/01/2020 8: 42 PM PROJECT MANAGEMENT documented as of this encounter Plan of Treatment Not on file documented as of this encounter Visit Diagnoses Diagnosis Crohn's disease of ileum with complication (HCC) documented in this encounter Care Teams Training Executive Relationship Specialty Start Date End Date Mike Mitchell MD PCP - General Family Practice 01/16/21 documented as of this encounter
--- OUTSIDE RECORDS SUMMARY | 2024-01-30 08:17 | XMS_ITS | Encounter Summary ---
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 Gender Identity Not on file Sexual Orientation Straight 04/01/2020 8: 42 PM ECHOCARDIOGRAPHY TECHNOLOGIST documented as of this encounter Plan of Treatment Not on file documented as of this encounter Procedures Procedure Name Priority Date/Time Associated Diagnosis Comments T-SPOT.TB Routine 04/28/2021 9:10 AM CDT Crohn's disease of ileum with complication (CMS/HCC) ([facility]) documented in this encounter Results * T-SPOT.TB (04/28/2021 9:10 AM CDT) [facility] T-SPOT.TB Negative SeeBelow [facility] Comment: Normal Value: Negative A negative test [...] test. T-SPOT.TB Panel A Spot Count 0 [facility] T-SPOT.TB Panel B Spot Count 0 [facility] T-SPOT.TB Negative Control Passed [facility] T-SPOT.TB Positive Control Passed [facility] Comment: Test Performed at: [facility] [address] [place] [address] ??[id number] ? CLARENCE MINA MD,PHD Blood 04/28/2021 9:10 AM CDT 04/28/2021 11:34 AM CDT us Julia Moreno MD LAB MICROBIOLOGY - GENERAL ORDERABLES Final Result [facility] Department [place] [address] documented in this encounter Visit Diagnoses Diagnosis Crohn's disease of ileum with complication (HCC) documented in this encounter Care Teams Incoming Freight Clerk Relationship Specialty Start Date End Date Mike Mitchell MD PCP - General Family Practice 12/10/21 documented as of this encounter
--- OUTSIDE RECORDS SUMMARY | 2024-01-30 08:18 | XMS_ITS | Encounter Summary ---
Author Organization [facility] Address [address] [place] [address] Phone Care Team Providers Care Service Bar Cashier Name Role Phone Mike Mitchell MD Primary Care Provider [phone] [phone] Reason for Visit * Episode Based Medications (Routine) - Closed Specialty Diagnoses / Procedures Referred By Contac t Referred To Contact Diagnoses Crohn's disease of ileum with complication (HCC) Procedures [place] INFLIXIMAB NOT BIOSIMIL 10MG Julia Moreno MD [address] [place] [address] Phone: tel: fax: [facility] Infusion Therapy [facility] Medicine 5th [place] [address] [place] [address] Phone: tel: fax: Referral ID Status Reason Start Date Expiration Date Visits Re quested Visits Authorized [id number] Closed 08/31/2022 09/01/2023 26 26 Encounter Details Date Type Department Care Team (Late st Contact Info) Description 03/02/2021 9:30 AM TOBACCO BUYER Infusion [facility] Infusion Therapy [facility] Medicine 5th [place] [address] [place] [address] Crohn's disease of ileum with complication (CMS/HCC) (HCC) (Primary Dx) Social History Tobacco Use Types Packs/Day Years Used Date Smoking Tobacco: Never Alcohol Use Standard Drinks/Week Comments Yes 0 (1 standard drink = 0.6 oz pur e alcohol) socially AUDIT-C Answer Date Recorded Q1: How often do you have a drink containing alcohol? 4 or more times a week 11/14/2020 Q2: How many drinks containi ng alcohol do you have on a typical day when you are drinking? 3 or 4 Q3: How often do you have si x or more drinks on one occasion? Weekly 11/14/2020 Sex and Gender Information Value Date Recorded Sex Assigned at Not on file Legal Sex Male 8:42 AM TOBACCO BUYER Gender Identity Not on file Sexual Orientation Straight 04/01/2020 8: 42 PM TOBACCO BUYER documented as of this encounter Last Filed Vital Signs Vital Sign Reading Time Taken Comments Blood Pressure 124/83 03/02/2021 10:15 AM TOBACCO BUYER Pulse 96 03/02/2021 10:15 AM TOBACCO BUYER Temperature - - Respiratory Rate 16 03/02/2021 10:15 AM TOBACCO BUYER Oxygen Saturation - - Inhaled Oxygen Concentration - - Weight - - Height - - Body Mass Index - - documented in this encounter Progress Notes * Perez Hanks RN - 03/02/2021 9:30 AM CST Remicade infused per protocol. No S/S of adverse reaction. VSS. Follow up scheduled. Jin Hanks RN CCO BUYER documented in this encounter Plan of Treatment Not on file documented as of this encounter Procedures Procedure Name Priority Date/Time Associated Diagnosis Comments CBC WITH AUTO DIFFERENTIAL Routine 03/02/2021 10:00 AM TOBACCO BUYER Crohn's disease of ileum with complication (CMS/HCC) (HCC) HEPATIC FUNCTION PANEL Routine 03/02/2021 10:00 AM TOBACCO BUYER Crohn's disease of ileum with complication (CMS/HCC) (HCC) documented in this encounter Results * Hepatic function panel (03/02/2021 10:00 AM TOBACCO BUYER) Direct Bilirubin 0.11 0.00 - 0.30 mg/dL [facility] AST (SGOT) 26 11 - 47 IU/L [facility] ALT (SGPT) 36 6 - 53 IU/L [facility] Alk Phos, Total 57 35 - 129 IU/L [facility] Albumin 4.7 3.5 - 5.2 g/dL [facility] Total Bilirubin 0.34 0.20 - 1.40 mg/dL [facility] Total Protein 7.2 6.1 - 8.4 g/dL [facility] Blood specimen (specimen) 03/02/2021 10:00 AM TOBACCO BUYER 03/02/2021 11:59 AM TOBACCO BUYER us Julia Moreno MD LAB BLOOD ORDERABLE S Final Result [facility] * CBC with auto differential (03/02/2021 10:00 AM TOBACCO BUYER) White Blood Count 7.3 3.6 - 11.2 K/uL [facility] RBC 5.16 4.06 - 5.63 M/uL [facility] Hemoglobin 16.2 13.0 - 17.5 g/dL [facility] Hematocrit 46.4 40.7 - 50.3 % [facility] MCV 89.8 80.0 - 97.6 fL [facility] MCH 31.3 26.7 - 33.7 pg [facility] MCHC 34.8 32.7 - 35.5 g/dL [facility] RBC Dist Width 12.6 12.3 - 17.0 % [facility] Platelet Count 243 140 - 440 K/uL [facility] MPV 8.8 6.8 - 10.4 fL [facility] Neutrophils % 70.1 38.7 - 74.5 % [facility] Lymphocyte % 20.8 20.0 - 54.3 % [facility] Monocytes % 7.6 4.3 - 13.5 % [facility] Eosinophils % 1.0 0.0 - 6.0 % [facility] Basophil % 0.5 0.0 - 3.0 % [facility] Absolute Neutrophil 5.1 1.8 - 6.6 K/uL [facility] Absolute Lymphocyte 1.5 0.8 - 3.3 K/uL [facility] Absolute Monocyte 0.6 0.2 - 1.2 K/uL [facility] Absolute Eosinophil 0.1 0.0 - 0.5 K/uL [facility] Absolute Basophil 0.0 0.0 - 0.2 K/uL [facility] Nucleated RBC % 0.1 0.0 - 0.4 /100 WBC [facility] Blood specimen (specimen) 03/02/2021 10:00 AM TOBACCO BUYER 03/02/2021 11:59 AM TOBACCO BUYER us Julia Moreno MD LAB BLOOD ORDERABLE [...] 500 mg 500 mg, oral, Once, On Tue03/02/21 at 1030, For 1 dose, Please give 30 minutes prior to infusion for infusion reaction prophylaxis.Indications:Crohn's disease of ileum with complication (HCC) Given 03/02/2021 10:00 AM TOBACCO BUYER 500 mg inFLIXimab (REMICADE) 1,200 mg in sodium chloride 0.9% 500 mL IVPB 1,200 mg, intravenous, Administer over 2 Hours, Once, On Tue03/02/21 at 1030, For 1 dose, Infuse with filter tubing [...] of ileum with complication (HCC) New Bag 03/02/2021 10:18 AM TOBACCO BUYER 1,200 mg documented in this encounter Orders Nursing Count Last Ordered Date First Orde red Date VITAL SIGNS INTRA-INFUSION 1 03/02/2021 documented in this encounter Care Teams Service Bar Cashier Relationship Specialty Start Date End Date Mike Mitchell MD PCP - General Family Practice 01/16/21 documented as of this encounter
--- OUTSIDE RECORDS SUMMARY | 2024-01-30 08:18 | XMS_ITS | Encounter Summary ---
Author Organization [facility] Healthcare Address [address] [place] [address] Care Team Providers Care Auto Body Shop Manager Name Role Phone Mike Mitchell MD Primary Care Provider [phone] [phone] Encounter Details Date Type Department Care Team (Late st Contact Info) Description 03/02/2021 12:30 PM RATOPRINTER Lab [address] [address] Crohn's disease of ileum with complication (CMS/HCC) [...] on file Legal Sex Male 8:42 AM RATOPRINTER Gender Identity Not on file Sexual Orientation Straight 04/01/2020 8: 42 PM RATOPRINTER documented as of this encounter Plan of Treatment Not on file documented as of this encounter Visit Diagnoses Diagnosis Crohn's disease of ileum with complication (HCC) documented in this encounter Care Teams Auto Body Shop Manager Relationship Specialty Start Date End Date Mike Mitchell MD PCP - General Family Practice 12/10/21 documented as of this encounter
--- OUTSIDE RECORDS SUMMARY | 2024-01-30 08:18 | XMS_ITS | Encounter Summary ---
Author Organization [facility] Address [address] [place] [address] Phone Care Team Providers Care Compliance Project Manager Name Role Phone Mike Mitchell MD Primary Care Provider [phone] [phone] Encounter Details Date Type Department Care Team (Late st Contact Info) Description 03/02/2021 10:30 AM LINDERMAN MACHINE OPERATOR Lab [facility] Endocrinology Metabolism and Lipid [address] [facility] 5th [place] [address] [place] [address] Crohn's disease of ileum with [...] on file Legal Sex Male 8:42 AM LINDERMAN MACHINE OPERATOR Gender Identity Not on file Sexual Orientation Straight 04/01/2020 8: 42 PM LINDERMAN MACHINE OPERATOR documented as of this encounter Plan of Treatment Not on file documented as of this encounter Visit Diagnoses Diagnosis Crohn's disease of ileum with complication (HCC) documented in this encounter Care Teams Compliance Project Manager Relationship Specialty Start Date End Date Mike Mitchell MD PCP - General Family Practice 01/16/21 documented as of this encounter
--- OUTSIDE RECORDS SUMMARY | 2024-01-30 08:18 | XMS_ITS | Encounter Summary ---
Author Organization [facility] Address [address] [place] [address] Phone Care Team Providers Care Event Planning Intern Name Role Phone Mike Mitchell MD Primary Care Provider [phone] [phone] Encounter Details Date Type Department Care Team (Late st Contact Info) Description 04/10/2021 Telephone [facility] Surgery [address] [facility] Advanced Medicine 8th [place] [address] [place] [address] Kiera Martínez CPhT Social History Tobacco Use Types Packs/Day Years Used Date Smoking Tobacco: Never Smokeless Tobacco: Never Alcohol Use Standard Drinks/Week Comments Yes 0 (1 standard drink = 0.6 oz pur e alcohol) socially AUDIT-C Answer Date Recorded Q1: How often do you have a drink containing alc ohol? 2-4 times a month 03/17/2021 Q2: How many drinks containi ng alcohol do you have on a typical day when you are drinking? 3 or 4 03/17/2021 Q3: How often do you have si x or more drinks on one occasion? Weekly 03/17/2021 Sex and Gender Information Value Date Recorded Sex Assigned at Not on file Legal Sex Male 8:42 AM PELT INSPECTOR Gender Identity Not on file Sexual Orientation Straight 04/01/2020 8: 42 PM PELT INSPECTOR documented as of this encounter Miscellaneous Notes * Telephone Encounter - Kiera Martínez CPhT - 04/10/2021 12:09 PM CST Called patient to give the arrival time for surgery on 04/13/2021 with instructions to NPO after midnight. INSPECTOR documented in this encounter Plan of Treatment Not on file documented as of this encounter Visit Diagnoses Not on filedocumented in this encounter Care Teams Event Planning Intern Relationship Specialty Start Date End Date Mike Mitcehll MD PCP - General Family Practice 01/16/21 documented as of this encounter
--- OUTSIDE RECORDS SUMMARY | 2024-01-30 08:18 | XMS_ITS | Encounter Summary ---
Author Organization [facility] Healthcare Address [address] [place] [place] [address] Care Team Providers Care Exercise Equipment Specialist Name Role Phone Mike Mitchell MD Primary Care Provider [phone] Encounter Details Date Type Department Care Team (Late st Contact Info) Description 04/13/2021 7:26 AM INFORMATION OPERATOR Anesthesia Event [facility] Operating Room 1 [place] [address] Anne Magaña MD [address] [place] [address] Evelyn Medina NP [address] [facility] [address] [phone] [place] [address] Anesthesia Record Procedure Summary Procedure Name Responsible Anesthesiologist Anesthesia Start Time Anesthesia Stop Time Open repair of recurrent, incarcerated incisional hernia with mesh (Abdomen) Anne Magaña MD 04/13/21 0726 04/13/21 1300 Events Date Time Event Comment 04/13/2021 0526 In Preop 0706 0726 An Start 0729 In Room 0730 An Start Data 0735 An Induction The patient was reevaluated immediately before moderate or deep sedation use and before anesthesia induction. 0739 An Intubation 0740 Quick Note Cuff noted to b e small for patient's body habitus. Switched to larger cuff with improvement in pressures. 0802 Anesthesia Ready 0807 Proc Start 0807 Incision Start 1203 Quick Note Reversal given early, surgeons requesting some relaxation. Will give cisatricurium 1243 Proc Fin 1250 An Extubation 1250 an stop data 1252 Out of Room 1300 Handoff to RN I completed my handoff [...] disposition at the time of handoff: PACU 1300 An Stop Meds Name Total midazolam PF 2 mg lidocaine (cardiac) syringe 2 % 100 mg propofol 200 mg fentaNYL 300 mcg HYDROmorphone 2 mg/mL 3.2 mg rocuronium 250 mg phenylephrine 100 mcg/mL 100 mcg glycopyrrolate 0.6 mg neostigmine injection 1 mg/mL 3.5 mg ceFAZolin (ANCEF) 2,000 mg/20 mL in ster ile water (premix) 2,000 mg 4,000 mg dexamethasone 4 mg/ml 4 mg methadone 10 mg/mL 10 mg magnesium sulfate 2 g/50 mL 2 g dexmedeTOMIDine infusion 84.26 mcg sugammadex 500 mg cisatracurium 8 mg ondansetron 2 mg/mL PF 4 mg Lactated Ringer's (LR) infusion 3,000 mL * Agents Name O2% N2O O2 N2O Air Sevoflurane Inspired Sevoflurane * Blood No blood administrations on file. Lines, Drains, and Airways Type Details Placement Removal Peripheral IV Placement Date: 04/13/21; Placement Time: 0606; Catheter Size: 20 G; Orientation: Anterior, Left; Location: Forearm; Site Prep: Chlorhexidine; Inserted by: mason her rn; Insertion Attempts: 1; Patient Tolerance: Anxious; Removal Date: 04/17/21; Removal Time: 1227; Removal Reason: Discharge 04/13/21 0606 by Camila Her RN 04/17/21 1227 by Rainer Mixon, HONG Urethral Catheter Placement Date: 04/13/21; Placement Time: 0745; Type: Non-latex; Balloon Size: 5 mL; Urine Returned: Yes; Removal Date: 04/14/21; Removal Time: 0636; Removal Reason: Per order 04/13/21 0745 by Ashanti Obregon RN 04/14/21 0636 by Reshma Mello, HONG ETT Placement Date: 04/13/21; Placement Time: 0807 (created via procedure documentation); Mask Ventilation: 2; Technique: Video laryngoscopy; Type: ETT - single; Cuffed: Yes; Laryngoscope: Sol; Blade Size: 4; Location: Oral; Insertion Attempts: 1; Placement Verification: Auscultation, Capnometry; Removal Date: 04/13/21; Removal Time: 1250 04/13/21 0807 by Shaan Bishop MD 04/13/21 1250 by Shaan Bishop MD Peripheral IV Placement Date: 04/13/21; Placement Time: 0808 (created via procedure documentation); Catheter Size: 18 G; Orientation: Left; Location: Hand; Site Prep: Alcohol; Insertion Attempts: 1; Removal Date: 04/17/21; Removal Time: 1227; Removal Reason: Discharge 04/13/21 0808 by Shaan Bishop MD 04/17/21 1227 by Rainer Mixon RN Closed/Suction/Open Drain 04/13/21; 1156; No; 2; Right; RUQ; Bulb; 19 Fr.; 1; Other (Comment) (removed by provider) 04/13/21 1156 by Ashanti Obregon RN 04/17/21 1000 by Rainer Mixon RN Closed/Suction/Open Drain 04/13/21; 1157; No; 3; Left; LUQ; Bulb; Other (Comment) (removed by provider) 04/13/21 1157 by Ashanti Obregon RN 04/17/21 1000 by Rainer Mixon RN RETIRED Surgical Site 04/13/21; 1239; Abdomen; 01/10/24 (Retired LDA, Removed/Completed by [facility] with LDA Utility); 1213 (Retired LDA, Removed/Completed by [facility] with LDA Utility) 04/13/21 1239 by Ashanti Obregon RN 01/10/24 1213 by Discharge Provider, Automatic documented in this encounter Social History Tobacco [...] on file Legal Sex Male 8:42 AM INFORMATION OPERATOR Gender Identity Not on file Sexual Orientation Straight 04/01/2020 8: 42 PM INFORMATION OPERATOR documented as of this encounter OR Notes * Anesthesia Postprocedure Evaluation - Anne Magaña MD - 04/13/2021 3:20 PM CST Patient: Kris Spence Procedure Summary Date: 04/13/21 Room / Location: [facility] OR POD 1 ROOM 329 / [facility] OR POD 1 Anesthesia Start: 725 Anesthesia Stop: 1300 Procedures: Open repair of recurrent, incarcerated incisional hernia with mesh (N/A Abdomen) Abdominal wall reconstruction (N/A Abdomen) Removal of mesh (N/A ) Diagnosis: Incisional hernia, without obstruction or gangrene (Incisional hernia, without obstruction or gangrene [K43.2]) Surgeons: Ky Sheth MD Responsible Provider: Anne Magaña MD Anesthesia Type: general ASA Status: 3 Anesthesia Type: general Last vitals BP (!) 124/101 Pulse 99 Temp 36.4 ??C (97.5 ??F) Resp 14 SpO2 96% Anesthesia Post Evaluation Patient location during evaluation: PACU Patient participation: complete - patient participated Level of consciousness: follows simple commands and fully awake Pain score: 3 Pain management: adequate Airway patency: adequate Evidence of recall: no Cardiovascular status: acceptable and hemodynamically stable Respiratory status: acceptable and room air Hydration status: acceptable Pt is: normothermic Nausea/Vomiting status: none Comments: Pt is comfortable and stable to go to the floor. BP (!) 124/101 Pulse 99 Temp 36.4 ??C (97.5 ??F) Resp 14 SpO2 96% No complications documented. RMATION OPERATOR * Anesthesia Procedure Notes - Shaan Bishop MD - 04/13/2021 8:07 AM CSTAssociated Order(s): Peripheral IV Catheter Peripheral IV Catheter Patient location: OR Staff: Supervising provider: Anne Magaña MD Placed by: Resident: Shaan Bishop MD Preprocedure prep: Prep solution: alcohol PPE: gloves and provider hat/mask PIV line: Laterality: left Site: hand Catheter size: 18 g Technique: direct visualization Procedure details: good blood return and occlusive dressing applied Number of attempts: 1 Assessment: Events: patient tolerated procedure well with no complications RMATION OPERATOR * Anesthesia Procedure Notes - Shaan Bishop MD - 04/13/2021 8:06 AM CSTAssociated Order(s): Airway Airway Patient location: OR Urgency: elective Indications for airway management: anesthesia Difficult airway: no Staff: Supervising provider: Anne Magaña MD Placed by: Resident: Shaan Bishop MD Emergent airway documentation: Risks and benefits discussed: yes Consent obtained: yes Consent given by: patient Airway prep: Preoxygenated: yes Patient position: sniffing Mask difficulty assessment: 2 - vent by mask + OA or adjuvant Sedation level during airway: GA Final airway details: Final airway type: endotracheal airway Tube type: ETT Cuffed: yes Technique used for successful ETT placement: video laryngoscopy Devices/Methods used in placement: stylet Insertion site: oral Blade type: Sol Video blade type: Lombardi Blade size: 4 Cormack-Lehane (video): grade I - full view of glottis ETT to teeth: 23 cm Placement verified by: auscultation and CO2 detection Airway secured with: silk tape Number of attempts: 1 Planned trial extubation: yes RMATION OPERATOR * Anesthesia Preprocedure Evaluation - Anne Magaña MD - 03/17/2021 8:36 AM CST Images from the original note were not included. [facility] for Preoperative Assessment and Planning Preoperative Evaluation Record Evaluation type/location: CPAP [facility] Planned procedure site: [facility]T OR (Pod 1) Date: 03/17/21 Anesthesia Evaluation Kris Spence is a 61 y.o. male Procedure(s): OPEN REPAIR INCISIONAL HERNIA OPEN RECONSTRUCTION ABDOMINAL WALL Pre-Op Diagnosis Codes: * Incisional hernia, without obstruction or gangrene [K43.2] HISTORY HPI 61 year old male being evaluated prior to undergoing open repair incisional hernia, open reconstruction abdominal wall for incisional hernia. Hx of HTN, GERD, Crohn's, nephrolithiasis, obesity. Past Medical History Information obtained from: patient and chart. Neurological Pertinent negatives: seizures; neuromuscular disease; CVA/stroke; TIA; CEA; ICA stenosis; dementia/mild cognitive impairment; psychiatric history and carotid artery stent Cardiovascular + Hypertension (managed by PCP, last OV in past 6 months) Hypertension year diagnosed: 2013. Typical systolic BP - 130 Typical diastolic BP - 80 Pertinent negatives: CAD ; LA ; CABG ; valvular heart disease; valve [...] Pertinent negatives: liver disease; history of anemia and history of thrombocytopenia Comments: Hx of hepatic hemangioma s/p excision Gastrointestinal + GERD - on daily therapy. Asymptomatic. + Hiatal hernia Renal / + Nephrolithiasis (s/p lithotripsy) Pertinent negatives: renal disease and dialysis Musculoskeletal/Pain + Chronic pain (left shoulder) Pertinent negatives: chronic opioid use and previous treatment for opioid use disorder Endocrine / Other + Obesity (BMI >30) (BMI 35.40) + Rheumatological disease (remicade infusion 03/02/21; Pouchoscopy 11/14/20) - Crohn's disease. + Pancreatitis (medicine induced 2001) - acute. Pertinent negatives: diabetes mellitus; thyroid disease; cancer history and transplanted organ Functional Capacity Functional capacity: 4-6 METs Comments: Patient would be able to climb 3 flights of stairs at moderate pace without SOB or CP. Review of Systems + productive cough (occasional cough likely 2/2 lisinopril) + previous transfusion (5 units in 1988 for bleeding ulcer) + chronic pain (left shoulder) + vision loss (glasses) + diarrhea (2/2 Crohn's) + chipped/loose teeth (bottom right chipped molar) + abdominal pain (2/2 Crohn's and hernia) Pertinent negatives: wheezing; SOB; recent cold/flu; fever; chest pain; palpitations; orthopnea; pedal edema; PND; Sickle Cell disease/trait; transfusion reaction; melena/hematochezia; easy bruising;bleeding problems; syncope; dizziness; muscle weakness; numbness/tingling; hard of hearing; heartburn; nausea; dysphagia; dentures/partials; diaphoresis and no unexpected weight change PAT Summary and Plans Cardiac risk classification of planned procedure: intermediate cardiac risk. Preoperative assessment status: lab tests ordered. Initial preoperative evaluation discussed with: Cristian Joaquin MD Additional comments: Kris Spence is a 61 y.o. male who is being evaluated prior to undergoing anintermediate cardiac risk surgery. Revised Cardiac Risk Index factors are (none) for a total RCRI of 0 out of 6. Functional capacity is 4-6 METs. Obstructive sleep apnea (CYNDEE) screening status is STOP-Bang=5 suggesting high risk for CYNDEE. CYNDEE orders entered. Blood bank needs for day of procedure: No type and screen needed Pending labs/tests include: BMP CBC T&S Liver labs 03/02/21, 11/16/20 CMP unremarkable; 03/02/21 CBC unremarkable The patient has a history of positive indirect Pam and is having a surgery where blood antibodies are pertinent to the planned surgery. The antibody type is Anti E. Filippo Yan in blood bank, anticipated cross-match difficulty is not difficult. Based on this information, we will initiate the following blood plan for the day of surgery: Type and screen only. For day of surgery blood bank specimen availability, the plan is that the patient will need to return with 14 days of surgery for a 14-day T&S specimen. Pt returned to [facility] on 04/02 for 14 day T&S. Patient's COVID19 status is: Unexposed. The patient currently has no concerning symptoms of COVID19. . Patient's COVID-19 vaccination status is Fully vaccinated. Patient has not received COVID Booster. Documentation of vaccination status is available in the Epic Immunization tab. . Plan for pre-procedure COVID19 testing: Surgery date greater than 4 days from today. Request placed for pre-procedure COVID19 testing to be performed on 04/09. [facility] will place the order for testing. Result to be reviewed by surgeon's office. . Preoperative evaluation performed by Yvette Anderson NP on 03/17/21 at 10:24 AM. . Follow up note Labs reviewed and are without significant findings. The patient has a history of positive indirect Pam and is having a surgery where blood antibodies are pertinent to the planned surgery. The antibody type is Anti-E. Per Franky in blood bank, anticipated cross-match difficulty is not difficult. Based on this information, we will initiate the following blood plan for the day of surgery: Type and screen only. For day of surgery blood bank specimen availability, the plan is that the patient will need to return with 14 days of surgery for a 14-day T&S specimen (04/02, left message on [facility] for pt to confirm appt date at [facility]). (T&S plan previously discussed with CPAP attending, antibody is unchanged per blood bank, Franky) Awaiting additional lab results: 14-day Type ands Screen, to be obtained 04/02. Surgeon's office reviews laboratory results independently. Follow-up completed by: Evelyn Medina NP on 03/18/21 at 9:27 AM Follow up note abs reviewed and are without significant findings. The patient has a history of positive indirect Pam and is having a surgery where blood antibodies are pertinent to the planned surgery. The antibody type is Anti-E. Per Franky in blood bank, anticipated cross-match difficulty is not difficult. Based on this information, we will initiate the following blood plan for the day of surgery: Type and screen only. For day of surgery blood bank specimen availability, the plan is that the patient will need to return with 14 days of surgery for a 14-day T&S specimen (04/06/21, left message on VM for pt to confirm appt date at [facility]). (T&S plan previously discussed with CPAP attending, antibody is unchanged per blood bank, Franky) Pt rescheduled to have Type and screen done 04/06/21 Follow-up completed by: Julia Loya NP on 04/03/21 at 9:11 AM Follow up note The patient has a history of positive indirect Pam and is having a surgery where blood antibodies are pertinent to the planned surgery. The antibody type is Anti-E. Per Yoon in blood bank, anticipated cross-match difficulty is not difficult (estimated 1 hours needed to crossmatch) but thereis anticipated availability at [facility] blood bank. Based on this information, we will initiate the following blood plan for the day of surgery: Type and screen only. For day of surgery blood bank specimen availability, the plan is that the current 14-day T&S specimen is anticipated to be available. CPAP process complete. Follow-up completed by: Shea Limon NP on 04/07/21 at 12:22 PM Discussed with: Cristian Joaquin MD Patient Active Problem List Diagnosis ??? Recurrent incisional hernia ??? Crohn's disease of ileum with complication (CMS/HCC) (HCC) ??? Gastrointestinal hemorrhage Past Medical History: Diagnosis Date ??? GERD (gastroesophageal reflux disease) ??? HTN (hypertension) ??? Liver hemangioma ??? Nephrolithiasis ??? Obesity Past Surgical History: Procedure Laterality Date ??? ABDOMINAL WALL DEFECT REPAIR 2013 reconstruction ??? CYSTOSCOPY W/ LASER LITHOTRIPSY Right 2018 ??? HEMANGIOMA EXCISION 2016 liver ??? POUCHOSCOPY 11/14/2020 ??? RESTORATIVE PROCTOCOLECTOMY 2003 J-pouch ??? VENTRAL HERNIA REPAIR 06/2009, 07/2009 Allergies Allergen Reactions ??? Fruit Extracts Hives Tomatoes and oranges ??? Iron Rash ??? Rittman Juice Hives ??? Rittman Oil Hives ??? Sulfa (Sulfonamide Antibiotics) Hives and Rash ??? Tomato Hives ??? Sulfur Unknown Cerner Allergy Text Annotation: Sulfur ??? Azathioprine Other (See comments) pancreatitis Taking? Last Dose Start Date End Date Provider allopurinoL (ZYLOPRIM) 100 mg tablet 11/29/19 -- ProviderAmie MD chlorthalidone 25 mg tablet 11/20/19 -- Amie Odonnell MD cholecalciferol (VITAMIN D-3) 2000 unit tablet 01/12/21 -- Julia Moreno MD TAKE 1 TABLET BY MOUTH EVERY DAY esomeprazole DR (NexIUM) 20 mg capsule 02/05/20 -- Amie Odonnell MD Notes: 2x/day gabapentin (NEURONTIN) 300 mg capsule 10/23/20 -- Amie Odonnell MD inFLIXimab (REMICADE) 100 mg injection 01/12/21 -- Julia Moreno MD Klor-Con M20 20 mEq CR tablet 01/12/20 -- Amie Odonnell MD lisinopriL (PRINIVIL,ZESTRIL) 10 mg tablet 11/18/20 11/18/21 Ankur Victor MD PhD Take 1 tablet (10 mg total) by mouth daily loperamide (IMODIUM A-D) 2 mg tablet 02/19/21 -- Julia Moreno MD Take 2 tablets up to three times daily as needed loperamide (IMODIUM) 0.133 mg/mL solution -- -- Amie Odonnell MD cliyzhhossiu-usidtmmb-ybydks tablet -- -- Amie Odonnell MD sildenafiL, pulm.hypertension, (REVATIO) 20 mg tablet 07/23/13 -- Amie Odonnell MD sulfaSALAzine (AZULFIDINE) 500 mg tablet 02/19/21 -- Julia Moreno MD Take 2 tablets up to three times a day as needed testosterone cypionate (DEPO-TESTOTERONE) 200 mg/mL injection 10/07/20 -- Amie Odonnell MD UNABLE TO FIND -- -- Amie Odonnell MD UNABLE TO FIND -- -- Amie Odonnell MD Current Outpatient Medications: ??? allopurinoL (ZYLOPRIM) 100 mg tablet ??? chlorthalidone 25 mg tablet ??? cholecalciferol (VITAMIN D-3) 2000 unit tablet ??? esomeprazole DR (NexIUM) 20 mg capsule ??? gabapentin (NEURONTIN) 300 mg capsule ??? inFLIXimab (REMICADE) 100 mg injection ??? Klor-Con M20 20 mEq CR tablet ??? lisinopriL (PRINIVIL,ZESTRIL) 10 mg tablet ??? loperamide (IMODIUM A-D) 2 mg tablet ??? loperamide (IMODIUM) 0.133 mg/mL solution ??? hxcoaehywshr-rclunktd-ychdui tablet ??? sildenafiL, pulm.hypertension, (REVATIO) 20 mg tablet ??? sulfaSALAzine (AZULFIDINE) 500 mg tablet ??? testosterone cypionate (DEPO-TESTOTERONE) 200 mg/mL injection ??? UNABLE TO FIND ??? UNABLE TO FIND Social History Tobacco Use Smoking Status Never Smoker Smokeless Tobacco Not on file Substance and Sexual Activity Alcohol Use Yes Comment: socially Substance and Sexual Activity Drug Use Never Family History Problem Relation Age of Onset ??? Cancer Father ??? Hypertension Father PAT Physical Exam Airway Exam: Mallampati: III Cervical ROM: FROM TM distance: 3 Patient presents with thick neck, mustache and bell. Upper lip bite test class: 1 Inter-incisor gap (cm): 3 Cardiovascular Exam: Rate: regular Rhythm: regular Negative for Murmur No extra heart sounds appreciated Negative for peripheral edema Pulmonary Exam: LCTA negative EENT Exam: trachea midline Dental Exam: Chipped and appears intact (Bottom right chipped molar) Skin Exam: Skin is warm and dry. Abdominal exam: Abdomen is soft and distended. Bowel sounds are present. Current state: Patient's current state is cooperative and interactive. Vitals: 03/17/21 1045 03/17/21 1046 BP: 130/80 122/83 Pulse: 92 SpO2: 93% Relevant diagnostics: ECG(s): 08/19/17 Sinus rhythm Comparison Summary: No serial comparison made Summary: Normal ECG Echocardiogram(s): N/A Stress test(s): N/A Cardiac catheterization(s): N/A PFT(s): N/A Vascular studies: N/A Other: Abd CT 10/03/2019 1. Ventral hernia in the left upper abdomen at the level of the stomach with open of 3-4 cm containing mesenteric fat and vessels. 2. There is a smaller 1 cm ventral hernia to the right of mid line at the mid abdominal level also containing mesenteric fat. 3. Right lower anterior abdominal wall scarring 4. No evidence of an acute inflammatory process in the abdomen or pelvis 5. Hepatomegaly with diffuse fatty infiltrate throughout the liver 6. Status post subtotal colectomy PT: No results found for requested labs within last 720 hours. INR: No results found for requested labs within last 720 hours. APTT: No results found for requested labs within last 720 hours. Hgb A1C: No results found for requested labs within last 720 hours. CBC RBC: 03/02/2021: 5.16 M/uL RDW: 03/02/2021: 12.6 % MCHC: 03/02/2021: 34.8 g/dL MCH: 03/02/2021: 31.3 pg MCV: 03/02/2021: 89.8 fL Hct: 03/02/2021: 46.4 % Hgb: 03/02/2021: 16.2 g/dL WBC: 03/02/2021: 7.3 K/uL MPV: 03/02/2021: 8.8 fL Platelets: No results found for requested labs [...] for requested labs within last 720 hours. STOP-Bang Total Score: 5 DOS Physical Exam Medical history, medications, and allergies reviewed. Attestation: This PAT evaluation Airway Exam: Mallampati: III Cervical ROM: FROM TM distance: 3.5 Cardiovascular Exam: Rate: regular Rhythm: regular Pulmonary Exam: LCTA, bilat EENT Exam: trachea midline Dental Exam: Appears intact Skin Exam: Skin is warm. Current state: Patient's current state is cooperative and interactive. Anesthesia Plan ASA 3 My patient is approved for the Anesthesia Controlled Medication protocol when under care of a APPLIANCE TECHNICIAN Planned anesthesia: General Team communication plan: oral ET tube Induction: Induction: intravenous. Postoperative Plan: Postoperative administration opioids intended. No postoperative mechanical ventilation intended. Patient's planned disposition post procedure is Floor. Informed Consent: Discussed plan with resident. Anesthesia plan and risks discussed with patient. Consent and Attending signature: I and/or my designee have discussed the anesthesia plan, benefits, possible alternatives, parental presence at time of induction (if indicated), and clinically relevant risks that may include dental injury, unintentional awareness, and/or other complications. The patient and/or parent/legal guardian understand, and agree to proceed. All questions answered. RMATION OPERATOR RMATION OPERATOR RMATION OPERATOR RMATION OPERATOR RMATION OPERATOR RMATION OPERATOR documented in this encounter Plan of Treatment Not on file documented as of this encounter Procedures Procedure Name Priority Date/Time Associated Diagnosis Comments PERIPHERAL LINE Routine 04/13/2021 8:07 AM INFORMATION OPERATOR ANESTHESIA INTUBATION Routine 04/13/2021 8:06 AM INFORMATION OPERATOR documented in this encounter Results * Peripheral IV Catheter (04/13/2021 8:07 AM INFORMATION OPERATOR) Narrative Shaan Bishop MD - 04/13/2021 8:07 AM INFORMATION OPERATOR Shaan Bishop MD ? 04/13/2021 ??8:08 AM Peripheral IV Catheter Patient location: OR Staff: Supervising provider: Anne Magaña MD Placed by: Resident: Shaan Bishop MD Preprocedure prep: Prep solution: alcohol PPE: gloves and provider hat/mask PIV line: Laterality: left Site: hand Catheter size: 18 g Technique: direct visualization Procedure details: good blood return and occlusive dressing applied Number of attempts: 1 Assessment: Events: patient tolerated procedure well with no complications us Anne Magaña MD ANESTHESIA ORDERABLES Jayde l Result * Airway (04/13/2021 8:06 AM INFORMATION OPERATOR) Narrative Shaan Bishop MD - 04/13/2021 8:06 AM INFORMATION OPERATOR Shaan Bishop MD ? 04/13/2021 ??8:07 AM Airway Patient location: OR Urgency: elective Indications for airway management: anesthesia Difficult airway: no Staff: Supervising provider: Anne Magaña MD Placed by: Resident: Shaan Bishop MD Emergent airway documentation: Risks and benefits discussed: yes Consent obtained: yes Consent given by: patient Airway prep: Preoxygenated: yes Patient position: sniffing Mask difficulty assessment: 2 - vent by mask + OA or adjuvant Sedation level during airway: GA Final airway details: Final airway type: endotracheal airway Tube type: ETT Cuffed: yes Technique used for successful ETT placement: video laryngoscopy Devices/Methods used in placement: stylet Insertion site: oral Blade type: Sol Video blade type: Lombardi Blade size: 4 Cormack-Lehane (video): grade I - full view of glottis ETT to teeth: 23 cm Placement verified by: auscultation and CO2 detection Airway secured with: silk tape Number of attempts: 1 Planned trial extubation: yes Anne Magaña MD ANESTHESIA ORDERABLES Jayde l Result documented in this encounter Visit Diagnoses Not on filedocumented in this encounter Administered Medications Inactive Administered Medications - up to 3 most recent administrations Medication Order MAR Action Action Date Dose Rate Site ceFAZolin (ANCEF) 2,000 mg/20 mL in sterile water (premix) 2,000 mg 2,000 mg, intravenous, at 400 mL/hr, Administer over 3 Minutes, Once, On Tue04/13/21 at 0615, For 1 dose, Pre-Op, Indications: Prophylaxis, SurgicalIndications:Prophylaxis , Surgical Given 04/13/2021 11:47 AM INFORMATION OPERATOR 2,000 mg Given 04/13/2021 7:55 AM INFORMATION OPERATOR 2,000 mg cisatracurium (NIMBEX) 2 mg/mL injection intravenous, As needed, Starting on Tue04/13/21 at 1203, Anesthesia Intra-op Given 04/13/2021 12:04 PM INFORMATION OPERATOR 4 mg Given 04/13/2021 12:03 PM INFORMATION OPERATOR 4 mg dexAMETHasone (DECADRON) 4 mg/mL injection intravenous, Administer over 2 Minutes, As needed, Starting on Tue04/13/21 at 0735, Anesthesia Intra-op Given 04/13/2021 7:35 AM INFORMATION OPERATOR 4 mg dexmedeTOMIDine in 0.9% sodium chloride (PRECEDEX) 200 mcg/50 mL (4 mcg/mL) infusion (premix) intravenous, Continuous PRN, Starting on Tue04/13/21 at 1014, Anesthesia Intra-op Rate/Dose Change 04/13/2021 10:42 AM INFORMATION OPERATOR 0.7 mcg/kg/hr 20.72 mL/hr New Bag 04/13/2021 10:14 AM INFORMATION OPERATOR 0.5 mcg/kg/hr 14.8 mL/h r fentaNYL (SUBLIMAZE) preservative free injection intravenous, As needed, Starting on Tue04/13/21 at 0804, Anesthesia Intra-op Given 04/13/2021 10:11 AM INFORMATION OPERATOR 100 mcg Given 04/13/2021 8:04 AM INFORMATION OPERATOR 100 mcg Given 04/13/2021 7:35 AM INFORMATION OPERATOR 100 mcg glycopyrrolate (ROBINUL) injection intravenous, Administer over 1 Minutes, As needed, Starting on Tue04/13/21 at 1239, Anesthesia Intra-op Given 04/13/2021 12:39 PM INFORMATION OPERATOR 0.6 mg HYDROmorphone (DILAUDID) injection intravenous, Administer over 2 Minutes, As needed, Starting on Tue04/13/21 at 0858, Anesthesia Intra-op Given 04/13/2021 10:41 AM INFORMATION OPERATOR 1.2 mg Given 04/13/2021 10:09 AM INFORMATION OPERATOR 0.4 mg Given 04/13/2021 9:14 AM INFORMATION OPERATOR 0.6 mg Lactated Ringer's (LR) infusion 30 mL/hr, intravenous, Continuous, Starting on Tue04/13/21 at 0615, Pre-Op New Bag 04/13/2021 9:54 AM INFORMATION OPERATOR 30 mL/hr Rate/Dose Verify 04/13/2021 7:26 AM INFORMATION OPERATOR 30 mL/h r New Bag 04/13/2021 6:03 AM INFORMATION OPERATOR 30 mL/hr 30 mL/hr lidocaine (cardiac) (XYLOCAINE) preservative free injection intravenous, As needed, Starting on Tue04/13/21 at 0735, Anesthesia Intra-op, Indications: Ventricular ArrhythmiasIndications:Ventricular Arrhythmias Given 04/13/2021 7:35 AM INFORMATION OPERATOR 100 mg magnesium sulfate 2 g/50 mL in water (premix) intravenous, Administer over 60 Minutes, As needed, Starting on Tue04/13/21 at 0950, Anesthesia Intra-op Given 04/13/2021 9:50 AM INFORMATION OPERATOR 2 g methadone injection syringe intravenous, As needed, Starting on Tue04/13/21 at 0800, Anesthesia Intra-op Given 04/13/2021 8:00 AM INFORMATION OPERATOR 10 mg midazolam (VERSED) 1 mg/mL preservative free injection intravenous, Administer over 2 Minutes, As needed, Starting on Tue04/13/21 at 0726, Anesthesia Intra-op Given 04/13/2021 7:26 AM INFORMATION OPERATOR 2 mg neostigmine (PROSTIGMIN) injection intravenous, Administer over 3 Minutes, As needed, Starting on Tue04/13/21 at 1242, Anesthesia Intra-op Given 04/13/2021 12:38 PM INFORMATION OPERATOR 3.5 mg ondansetron (ZOFRAN) injection intravenous, Administer over 2 Minutes, As needed, Starting on Tue04/13/21 at 1205, Anesthesia Intra-op Given 04/13/2021 12:05 PM INFORMATION OPERATOR 4 mg phenylephrine (JANE-SYNEPHRINE) 1 mg/10 mL (100 mcg/mL) in sodium chloride 0.9% (premix) intravenous, As needed, Starting on Tue04/13/21 at 0735, Anesthesia Intra-op Given 04/13/2021 7:35 AM INFORMATION OPERATOR 100 mcg propofoL (DIPRIVAN) 10 mg/mL IV intravenous, As needed, Starting on Tue04/13/21 at 0735, Anesthesia Intra-op Given 04/13/2021 7:35 AM INFORMATION OPERATOR 200 mg rocuronium (ZEMURON) injection intravenous, As needed, Starting on Tue04/13/21 at 0735, Anesthesia Intra-op Given 04/13/2021 10:39 AM INFORMATION OPERATOR 50 mg Given 04/13/2021 9:58 AM INFORMATION OPERATOR 50 mg Given 04/13/2021 9:33 AM INFORMATION OPERATOR 20 mg sugammadex (BRIDION) 100 mg/mL intravenous solution intravenous, As needed, Starting on Tue04/13/21 at 1157, Anesthesia Intra-op Given 04/13/2021 11:57 AM INFORMATION OPERATOR 500 mg documented in this encounter Care Teams Exercise Equipment Specialist Relationship Specialty Start Date End Date Mike Mitchell MD PCP - General Family Practice 01/16/21 documented as of this encounter
--- OUTSIDE RECORDS SUMMARY | 2024-01-30 08:18 | XMS_ITS | Encounter Summary ---
Author Organization [facility] Address [address] [place] [address] Phone Care Team Providers Care Hoop Maker Helper Machine Name Role Phone Mike Mitchell MD Primary Care Provider [phone] Encounter Details Date Type Department Care Team (Late st Contact Info) Description 02/19/2021 10:00 AM TELECASTING ENGINEER Telemedicine [facility] Gastroenterology [facility] 12th [place] [address] [place] [address] Julia Moreno MD [address] [place] [address] Crohn's disease of ileum with complication (CMS/HCC) (HCC) (Primary Dx); High risk [...] on file Legal Sex Male 8:42 AM TELECASTING ENGINEER Gender Identity Not on file Sexual Orientation Straight 04/01/2020 8: 42 PM TELECASTING ENGINEER documented as of this encounter Patient Instructions * Patient Instructions* Lisa Napoles - 02/19/2021 10:00 AM TELECASTING ENGINEER ??? Return office visit is needed in 6 months ??? Continue Remicade as scheduled ??? We will plan to schedule a pouchoscopy in October (Brenda with Dr. Moreno's office will contact you for scheduling once it comes closer to time) ??? Purchase Valtoren cream to apply to your hands every night ??? Take Imodium 2 pills up to three times daily as needed (prescription sent to your [facility] pharmacy) ??? Take Sulfasalazine 2 tabs up to three times daily as needed for joint pain (prescription sent to your [facility] pharmacy) ??? Please get your 2nd COVID booster due towards the end of this month or early March CASTING ENGINEER documented in this encounter Ordered Prescriptions Prescription Sig Dispense Quantity Refills Last Filled Start Date End Date sulfaSALAzine (AZULFIDINE) 500 mg tabletIndications: arthralgia Take 2 tablets up to three times a day as needed 180 tablet 2 02/19/2021 2 loperamide (IMODIUM A-D) 2 mg tablet Take 2 tablets up to three times daily as needed 180 tablet 2 02/19/2021 2 documented in this encounter Progress Notes * Jaren Shine MD - 02/19/2021 10:00 AM CST This was a telemedicine visit which utilized interactive audio and video technology. During the visit, I was located [facility] and the patient was located at home The video session started at 1000 and ended at 1030. Reason for visit: follow up for Crohn's disease of the pouch Problem List: Patient Active Problem List Diagnosis Date Noted ??? Gastrointestinal hemorrhage 11/16/2020 ??? Crohn's disease of ileum with complication (CMS/HCC) (HCC) 03/27/2020 ??? Recurrent incisional hernia 03/07/2020 HPI: Kris Spence is a 60 y.o. male with Crohn's disease of the pouch returns for follow up. Last visit 08/07/20. At that time, he was noted to have symptomatic improvement with infliximab. Planon performing pouchoscopy after he has had a few more doses of infliximab. We told him he can take more immodium if needed. Had pouchoscopy 11/14/20 with a few ulcers in the afferent limb. Pseudopolyps in the afferent limb. Resected and retrieved. Path with chronic active ileitis, chronic inflammation of large bowel. Noted to have low Remicade dose so plan to increase from 5 mg/kg (600 mg) to 10 mg/kg scheduled dose on 03/02/2021. He is feeling about same since 08/27. Has diarrhea and loose stools daily which patient says is normal for him. Has pads he uses to keep leaking. Has about 10 BMs daily for year. Used to use immodium frequently but not anymore. Was told that he shouldn't use too much so hasn't. He has joint pain chronically which has gradually worsened. Denies ocular symptoms. 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 Review of Systems: On complete review of systems, all other systems are negative. Allergies Allergen Reactions ??? Fruit Extracts Hives Tomatoes and oranges ??? Iron Rash ??? [place] Juice Hives ??? [place] Oil Hives ??? Sulfa (Sulfonamide Antibiotics) Hives and Rash ??? Tomato Hives ??? Sulfur Unknown Cerner Allergy Text Annotation: Sulfur ??? Azathioprine Other (See comments) pancreatitis Current Outpatient Medications Medication Sig Dispense Refill ??? allopurinoL (ZYLOPRIM) 100 mg tablet Take 100 mg by mouth 2 (two) times a day ??? chlorthalidone 25 mg tablet Take 25 mg by mouth daily ??? cholecalciferol (VITAMIN D-3) 2000 unit tablet TAKE 1 TABLET BY MOUTH EVERY DAY 90 tablet 3 ??? esomeprazole DR (NexIUM) 20 mg capsule bid ??? gabapentin (NEURONTIN) 300 mg capsule TAKE 1 CAPSULE BY MOUTH 4 TIMES DAILY. ??? inFLIXimab (REMICADE) 100 mg injection Infuse 1,200 mg into a venous catheter every 8 (eight) weeks CAM 5C Dose increased from 5 mg/kg to 10 mg/kg as of 01/12/21 r/t low IFX level from 01/05/21. ??? Klor-Con M20 20 mEq CR tablet Take 20 mEq by mouth 3 (three) times a day ??? lisinopriL (PRINIVIL,ZESTRIL) 10 mg tablet Take 1 tablet (10 mg total) by mouth daily 30 [id number] ??? loperamide (IMODIUM) 0.133 mg/mL solution Take by mouth ??? abfdtohijyqq-ztzsakfc-pnofux tablet Take 1 tablet by mouth daily ??? sildenafiL, pulm.hypertension, (REVATIO) 20 mg tablet 5 mg ??? testosterone cypionate (DEPO-TESTOTERONE) 200 mg/mL injection INJECT O.5 ML (100MG) INTRAMUSCULARLY ONCE EVERY 2 WEEKS ??? UNABLE TO FIND Vitron C iron plus vitamin c qd ??? UNABLE TO FIND Chewable magnesium and zinc qd No current facility-administered medications for this visit. Physical Exam: There were no vitals taken for this visit. Exam not performed. Labs: Lab on 01/05/2021 Component Date Value Ref Range Status ??? Infliximab 01/05/2021 1.4* mcg/mL Final ??? Infliximab interp 01/05/2021 See Footnote Final ? ? Anti infliximab ab 01/05/2021 <20.0 <50.0 units/mL Final ??? Infliximab Antibody Interp 01/05/2021 See Footnote Final Infusion on 01/05/2021 Component Date Value Ref Range Status ??? Direct Bilirubin 01/05/2021 0.08 0.00 - 0.30 mg/dL Final ??? AST (SGOT) 01/05/2021 30 11 - 47 IU/L Final ??? ALT (SGPT) 01/05/2021 36 6 - 53 IU/L Final ??? Alk Phos, Total 01/05/2021 55 35 - 129 IU/L Final ??? Albumin 01/05/2021 4.7 3.5 - 5.2 g/dL Final ??? Total Bilirubin 01/05/2021 0.27 0.20 - 1.40 mg/dL Final ??? Total Protein 01/05/2021 7.4 6.1 - 8.4 g/dL Final ??? White Blood Count 01/05/2021 6.4 3.6 - 11.2 K/uL Final ??? RBC 01/05/2021 4.98 4.06 - 5.63 M/uL Final ??? Hemoglobin 01/05/2021 16.0 13.0 - 17.5 g/dL Final ??? Hematocrit 01/05/2021 44.9 40.7 - 50.3 % Final ??? MCV 01/05/2021 90.1 80.0 - 97.6 fL Final ??? MCH 01/05/2021 32.1 26.7 - 33.7 pg Final ??? MCHC 01/05/2021 35.6* 32.7 - 35.5 g/dL Final ??? RBC Dist Width 01/05/2021 12.0* 12.3 - 17.0 % Final ??? Platelet Count 01/05/2021 221 140 - 440 K/uL Final ??? MPV 01/05/2021 8.6 6.8 - 10.4 fL Final ??? Neutrophils % 01/05/2021 70.5 38.7 - 74.5 % Final ??? Lymphocyte % 01/05/2021 19.9* 20.0 - 54.3 % Final ??? Monocytes % 01/05/2021 7.3 4.3 - 13.5 % Final ??? Eosinophils % 01/05/2021 1.8 0.0 - 6.0 % Final ??? Basophil % 01/05/2021 0.5 0.0 - 3.0 % Final ??? Absolute Neutrophil 01/05/2021 4.5 1.8 - 6.6 K/uL Final ??? Absolute Lymphocyte 01/05/2021 1.3 0.8 - 3.3 K/uL Final ??? Absolute Monocyte 01/05/2021 0.5 0.2 - 1.2 K/uL Final ??? Absolute Eosinophil 01/05/2021 0.1 0.0 - 0.5 K/uL Final ??? Absolute Basophil 01/05/2021 0.0 0.0 - 0.2 K/uL Final ??? Nucleated RBC % 01/05/2021 0.1 0.0 - 0.4 /100 WBC Final Assessment/Plan: 1. Crohn's disease of the pouch Pouchoscopy 11/14/20 with evidence of active disease. His levels of inflixamab were low as of 1.4 01/05/21. He is due for increased dose on 03/02/20. -continue infliximab, increased dose due 03/02/20 -We will plan for repeat pouchoscopy at some point likely 6 months after starting increased dose ofinflixamab. -cont vitamin d 2. Joint pains Likely multifactorial with some component related to IBD. - Trial Sulfasalazine 2 tablets TID. - Trial voltaren gel. - Continue Tylenol for arthritis. 3) Increased stools Having 10 BM per day. - Can take immodium as needed. - Counseled on taking fiber, bananas, and peanut butter.. - Will trial lomotil if above does not work. 4) Abdominal hernia - Will trial abdominal binder. RTC in 6 months. Jaren Shine MD Cosigned by Julia Moreno MD at 02/20/2021 2:16 PM TELECASTING ENGINEER CASTING ENGINEER CASTING ENGINEER Associated attestation - Julia Moreno MD - 02/20/2021 2:16 PM TELECASTING ENGINEER I have seen and examined the patient. I agree with the findings and plan of care as documented in the resident/fellow's note. My total encounter time on 02/19/2021 was 30 minutes which was spent in [...] disease of ileum with complication (HCC)- Primary High risk medications (not anticoagulants) long-term use Encounter for long-term (current) use of other medications documented in this encounter Care Teams Hoop Maker Helper Machine Relationship Specialty Start Date End Date Mike Mitchell MD PCP - General Family Practice 01/16/21 documented as of this encounter
--- OUTSIDE RECORDS SUMMARY | 2024-01-30 08:18 | XMS_ITS | Encounter Summary ---
Author Organization [facility] Healthcare Address [address] [place] [address] Care Team Providers Care Media Buyer Name Role Phone Mike Mitchell MD Primary Care Provider [phone] Encounter Details Date Type Department Care Team (Late st Contact Info) Description 04/13/2021 7:30 AM DATA CENTER CONSULTANT - 04/13/2021 1:10 PM [facility] Surgery [facility] Operating Room [address] [place] [address] Ky Sheth MD [address] [facility] [address] [place] [address] Open repair of recurrent, incarcerated incisional hernia with mesh Surgery Details Date/Time Status Location OR Service Patient Class Case Cl ass Case Type Trauma Case? 04/13/2021 7:30 AM Posted [facility] OR POD 1 329 Minimally Invasive Surgery Outpatient in Bed Elective Panel 1 Procedure LRB Anes Op Region Wound Class Comments Open repair of recurrent, in carcerated incisional hernia with mesh N/A General Abdomen Class I - Jonel an Abdominal wall reconstruction N/A General Abdomen Class I - Clean Removal of mesh N/A General Class I - Brook n Surgeon Surgeon Role Service Panel Ky Sheth MD Primary Minimally Invas maurilio Surgery 1 Mariia Ayon MD Resident - Assisting Minor Pro cedures 1 documented in this encounter Social History [...] on file Legal Sex Male 8:42 AM DATA CENTER CONSULTANT Gender Identity Not on file Sexual Orientation Straight 04/01/2020 8: 42 PM DATA CENTER CONSULTANT documented as of this encounter Last Filed Vital Signs Vital Sign Reading Time Taken Comments Blood Pressure 117/85 04/13/2021 1:10 PM DATA CENTER CONSULTANT Pulse 95 04/13/2021 1:10 PM DATA CENTER CONSULTANT Temperature 36.2 ??C (97.2 ??F) 04/13/2021 1:10 PM CS T Respiratory Rate 20 04/13/2021 1:10 PM DATA CENTER CONSULTANT Oxygen Saturation 95% 04/13/2021 1:10 PM DATA CENTER CONSULTANT Inhaled Oxygen Concentration - - Weight - - Height - - Body Mass Index - - documented in this encounter Discharge Summaries * Polly Graf, FRAME WIRER - 04/17/2021 12:16 PM CST Inpatient Discharge Summary BRIEF OVERVIEW Admitting Provider: Ky Sheth MD Discharge Provider: Ky Sheth MD Primary Care Physician at Discharge: Mike Mitchell MD [phone] Admission Date: 04/13/2021 Discharge Date: 04/17/2021 Primary Discharge Diagnosis: Recurrent incisional hernia Secondary Discharge Diagnosis: Principal Problem: Recurrent incisional hernia Resolved Problems: No resolved hospital problems. DETAILS OF HOSPITAL STAY Presenting Problem/History of Present Illness: Recurrent incisional hernia 61 y.o. male with a complex past surgical history including multiple previous abdominal operations stemming from Crohn's disease including total abdominal colectomy, ostomy and subsequent J-pouch creation. He has also had multiple previous hernia repairs with mesh along the last decade. He presentsfor evaluation of an enlarging and increasingly symptomatic recurrent hernia that requires manual reduction at time. Given the patients surgical history, the size and location of the defect it was felt he would be best served with an open repair. Hospital Course: The patient was admitted on 04/13/21 and taken to the operating room for an open AWR/TAR by Dr. Sheth. For full operative details, please dictated summary. The patient tolerated the procedure well and post operatively was admitted to the Minimally Invasive Surgery Service for further management andmonitoring. Postoperatively, the patient was place on bilateral lower extremity compression devicesand enoxaparin subq for DVT prophylaxis. Physical therapy was consulted to assist with mobilizationof the patient. Diet was advanced per protocol and pain was controlled on IV and oral medication. With return of bowel function, the patient was then discharge home on postoperative 4 in stable condition, tolerating a regular diet, voiding spontaneously, ambulating well and with her pain controlledon oral pain medication. RAMO drains removed prior to discharge. Active Issues Requiring Follow-up: none Test Results Pending at Discharge: none Operative Procedures Performed: Procedure(s): Open repair of recurrent, incarcerated incisional hernia with mesh Abdominal wall reconstruction Removal of mesh Other Procedures: none Pertinent Test Results: none Discharge Details Physical Exam at Discharge: Discharge Condition: good Pulse: 91 Resp: 13 BP: 120/85 Temp: 37.1 ??C (98.8 ??F) Weight: 117.9 kg (260 lb) Pertinent Exam Findings at Discharge: see daily progress note Discharge Disposition: Discharge to home or self care Code Status at Discharge: Full code Discharge Instructions: Activity Instructions Discharge Activity: Driving restrictions -Do not drive while taking pain medications. Discharge Activity: Lifting restrictions -Do NOT lift greater than 10 pounds for 4 weeks. Discharge Activity: Stairs -You may climb stairs as tolerated Discharge Activity: Walking -You may walk as tolerated. Diet Instructions Adult Discharge Diet Diet Type: Return to previous diet Other Instructions Call provider for: increased temperature -Temperature greater than 101 degrees F Call provider for: nausea, vomiting, diarrhea -If you have persistent nausea, vomiting or diarrhea that does not stop Call provider for: redness, tenderness, or signs of infection (pain, swelling, redness, odor or green/yellow discharge around incision site) Call provider for: severe uncontrolled pain Call provider for: any other concerns or questions Call the doctor's officer at for questions or concerns. The office is open Tuesday-Tuesday from 8:00 AM - 4:00 PM. If you need to talk with a doctor after hours or on a weekend or holiday, call . Call provider if: you feel dizzy, very tired or like you may faint Care Instructions: Abdominal binder -Wear the abdominal binder day/night for 4 week(s). May remove to shower. May remove to wash the binder. Care Instructions: Incentive Spirometer - Continue to use your incentive spirometer Care Instructions: Incisions -Keep incisions clean and dry Care Instructions: No tub baths -No tub baths, whirlpools or swimming until your provider says it's ok. Care Instructions: Shower -You may shower in 2 days after surgery. Discharge Wound Type: Open to air -You may leave your incision open to air Discharge Wound Type: Stitches/[place] -Stitches/marga will be removed at your next appointment Discharge Medications: Your medication list START taking these medications oxyCODONE 5 mg immediate release tablet Take 1 tablet (5 mg total) by mouth every 4 (four) hours as needed (breakthrough pain) May space to every 6 hours as tolerated. Please discard unused medication as instructed Commonly known as: ROXICODONE CHANGE how you take these medications cholecalciferol 2000 unit tablet TAKE 1 TABLET BY MOUTH EVERY DAY Commonly known as: VITAMIN D-3 What changed: how much to take when to take this lisinopriL 10 mg tablet Take 1 tablet (10 mg total) by mouth daily Commonly known as: PRINIVIL,ZESTRIL What changed: when to take this loperamide 2 mg tablet Take 2 tablets up to three times daily as needed Commonly known as: IMODIUM A-D What changed: how much to take how to take this when to take this reasons to take this sulfaSALAzine 500 mg tablet Take 2 tablets up to three times a day as needed Commonly known as: AZULFIDINE What changed: how much to take how to take this when to take this acetaminophen 500 mg capsule Take 2 capsules (1,000 mg total) by mouth every 6 (six) hours as needed for pain What changed: medication strength how much to take when to take this reasons to take this CONTINUE taking these medications allopurinoL 100 mg tablet Commonly known as: ZYLOPRIM chlorthalidone [address] 20 mg capsule Commonly known as: NexIUM fenofibrate nanocrystallized 48 mg tablet Commonly known as: TRICOR gabapentin 300 mg capsule Commonly known as: NEURONTIN inFLIXimab 100 mg injection Commonly known as: REMICADE IRON PLUS VITAMIN C ORAL Klor-Con M20 20 mEq CR tablet Generic drug: potassium chloride ER eeatsiiufmli-cemhbjsg-phvmjr tablet sildenafiL (pulm.hypertension) 20 mg tablet Commonly known as: REVATIO testosterone cypionate 200 mg/mL injection Commonly known as: DEPO-TESTOTERONE UNABLE TO FIND vitamin b complex tablet Outpatient Follow-Up: Future Appointments Date Time Provider Department Center 04/28/2021 9:00 AM IM INFUSION 8, [facility] 5C INF [facility] / INJ 05/08/2021 9:45 AM Ky Sheth MD [facility] 08/27/2021 10:00 AM Julia Moreno MD GI [facility] 12B [facility] Cosigned by Ky Sheth MD at 04/17/2021 3:01 PM DATA CENTER CONSULTANT CENTER CONSULTANT CENTER CONSULTANT documented in this encounter Medications at Time [...] needed 180 tablet 2 2 01/19/20 22 oxyCODONE (ROXICODONE) 5 mg immediate release tabletIndications:Toño n Take 1 tablet (5 mg total) by mouth every 4 (four) hours as needed (breakthrough pain) May space to every 6 hours as tolerated. Please discard unused medication as instructed 6 tablet 2 05/09/19 22 sildenafiL, pulm.hypertension, (REVATIO) 20 mg tablet Take 5 mg by mouth as needed 4 01/26/20 22 sulfaSALAzine (AZULFIDINE) 500 mg tabletIndications:art hralgia Take 2 tablets up to three times a day as needed 180 tablet 2 2 05/12/19 22 UNABLE TO FIND Take 1 each by mouth every morning Chewable magnesium 12/23/19 23 vitamin b complex tabletIndications:Vit yung Deficiency Prevention Take 1 tablet by mouth nightly 12/23/19 23 documented as of this encounter Ordered Prescriptions Prescription Sig Dispense Quantity Refills Last Filled Start Date End Date acetaminophen 500 mg capsule Take 2 capsules (1,000 mg total) by mouth every 6 (six) hours as needed for pain 04/17/2021 2 oxyCODONE (ROXICODONE) 5 mg immediate release tabletIndications: Pain Take 1 tablet (5 mg total) by mouth every 4 (four) hours as needed (breakthrough pain) May space to every 6 hours as tolerated. Please discard unused medication as instructed 6 tablet 04/17/2021 2 documented in this encounter Discharge Disposition Disposition Code Departure Means Destination Discharge to home or self care documented in this encounter Progress Notes * Sybil Squires RN - 04/17/2021 12:44 PM CST 04/17/21 1325 Discharge Summary Chart reviewed For Medical Necessity Does patient have a planned readmission to hospital planned? No Discharge Disposition Home Equipment/Provider Needs No Home Needs Identified Discharge Additional Assistance Does the patient need discharge transport arranged? No Post Discharge Care Provider Post Discharge Care Plan Next level of care provider has access to complete EMR Per medical team, patient is medically stable for discharge at this time. Follow up appointment hasbeen scheduled for April 28 and May 08. Patient and/or family are agreeable with the plan. If any further discharge needs arise, please contact the covering showcase trimmer. CENTER CONSULTANT * Gayle Armstrong MD - 04/17/2021 12:43 PM CST [facility] Minimally Invasive Surgery Daily Progress Note SUBJECTIVE: Overnight Events: No acute events overnight Interval History: Patient remains stable. S/p open AWR 3/7. He is feeling better, slept well, ambulating in halls. Patient is having appropriate post-surgical pain that is well controlled. No complaints of N/V.Having normal bowel function. UOP adequate. OBJECTIVE: Vitals / I/O: 24hr Min/Max: Temp Min: 36.4 ??C (97.5 ??F) Max: 37.1 ??C (98.8 ??F) Pulse Min: 86 Max: 103 BP Min: 112/67 Max: 140/84 Resp Min: 13 Max: 17 SpO2 Min: 94 % Max: 97 % Vitals: 04/16/21 2350 04/17/21 0515 04/17/21 0725 04/17/21 1150 BP: 112/67 140/84 137/84 120/85 BP Location: Right arm Right arm Right arm Right arm Patient Position: Lying;HOB 30 degrees Lying;HOB 30 degrees Sitting Lying Pulse: 86 87 86 91 Resp: 16 17 16 13 Temp: 36.6 ??C (97.9 ??F) 36.4 ??C (97.5 ??F) 36.8 ??C (98.2 ??F) 37.1 ??C (98.8 ??F) TempSrc: Oral Oral Oral Oral SpO2: 97% 96% 94% 96% Weight: Height: I/O last 3 completed shifts: In: 1993.8 [P.O.:1670; I.V.:323.8] Out: 521 [Urine:350; Drains:171] Physical Exam: General NAD, awake, alert, oriented Neuro Moving all extremities, no focal deficits Psych Appropriate mood and affect HEENT EOMI, conjunctiva pink Cardio Regular rate Pulm Breathing comfortably on room air No increased work of breathing. GI soft, mildly-distended, appropriately tender Skin Incisions clean,dry, intact, with marga in place no erythema, some drainage. Lower abdominal wall ecchymosis Drains Drains in place with thin serosanguineous output. Extremities Warm, well perfused, trace edema Labs: Lab Results Component Value Date WBC 9.5 04/15/2021 HGB 11.4 (L) 04/15/2021 HCT 32.3 (L) 04/15/2021 MCV 90.5 04/15/2021 LABPLAT 235 04/15/2021 Chemistry Lab Results Component Value Date SODIUM 137 04/16/2021 POTASSIUM 3.3 04/16/2021 CHLORIDE 96 (L) 04/16/2021 CO2 32 04/16/2021 ANIONGAP 9 04/16/2021 BUNSER 14 04/16/2021 CREATININE 0.94 04/16/2021 GLUCOSE 190 04/16/2021 CALCIUM 8.7 04/16/2021 BILITOT 0.5 04/13/2021 PROTEIN 7.5 03/20/2020 ALBUMIN 4.2 04/13/2021 GFRNAA >90 04/16/2021 ALKPHOS 51 04/13/2021 AST 55 (H) 04/13/2021 ALT 60 (H) 04/13/2021 PHOS 2.2 (L) 04/16/2021 MAGNESIUM 1.9 04/16/2021 Imaging: No new imaging ASSESSMENT/PLAN: 61 y.o. M with Crohn's disease (s/p proctocolectomy with J-pouch), GERD, HTN, Liver hemangioma, Nephrolithiasis, and Obesity. s/p open TAR with preperitoneal mesh 04/13/21. Remains clinically stable Neuro/Pain - Pain is well controlled on current regimen. Continue p.o. pain regimen CV - Remains hemodynamically stable. Continue monitoring, no telemetry. Pulm - No post-op respiratory insufficiency, stable on room air, cont Q1H incentive spirometry. FEN - heplock IVF, patient with hypokalemia - repleted and hypomagnesemia - repleted. hypophosphatemia - repleted GI - Normal post-op bowel function, low residue diet. continue home sulfasalazine, immodium Renal/ - Cr WNL, adequate UOP. Continue strict I/O. Heme - H/H downtrending, acute post-op blood loss anemia, no transfusion indicated ID - WBC downtrending, no indication for ABX Endo - sugars well controlled on BMP, no Hx of DM, no insulin needed MSK - OOB as tolerated, PT/OT ordered PPX - SCDs and LVX Dispo - discharge home today Patient d/w Attending Surgeon Dr Meryl Armstrong MD Cosigned by Ky Sheth MD at 04/17/2021 3:02 PM DATA CENTER CONSULTANT CENTER CONSULTANT CENTER CONSULTANT CENTER CONSULTANT Associated attestation - Ky Sheth MD - 04/17/2021 3:02 PM DATA CENTER CONSULTANT I have seen and examined the patient on 04/17/21. I agree with the findings and plan of care as documented in the resident's/fellow's note.. * Gayle Armstrong MD - 04/16/2021 5:59 AM CST [facility] Minimally Invasive Surgery Daily Progress Note SUBJECTIVE: Overnight Events: No acute events overnight Interval History: Patient remains stable. S/p open AWR 04/13. He is feeling better, slept well, ambulating in halls. Patient is having appropriate post-surgical pain that is well controlled. No complaints of N/V.Having normal bowel function. JPs 156, SS. UOP adequate. OBJECTIVE: Vitals / I/O: 24hr Min/Max: Temp Min: 36.4 ??C (97.5 ??F) Max: 37.9 ??C (100.2 ??F) Pulse Min: 86 Max: 107 BP Min: 114/80 Max: 132/75 Resp Min: 18 Max: 20 SpO2 Min: 92 % Max: 98 % Vitals: 04/15/21 1605 04/15/21 1933 04/15/21 2315 04/16/21 0345 BP: 126/75 132/75 116/61 BP Location: Left arm Left arm Right arm Patient Position: Pulse: 102 104 86 Resp: 20 20 18 Temp: 37.8 ??C (100 ??F) 37.5 ??C (99.5 ??F) 36.4 ??C (97.5 ??F) 37.1 ??C (98.8 ??F) TempSrc: Oral Oral Oral Oral SpO2: 98% 95% 94% Weight: Height: I/O last 3 completed shifts: In: 4090 [P.O.:1750; I.V.:2340] Out: 3275 [Urine:2830; Drains:445] Physical Exam: General NAD, awake, alert, oriented Neuro Moving all extremities, no focal deficits Psych Appropriate mood and affect HEENT EOMI, conjunctiva pink Cardio Regular rate Pulm Breathing comfortably on room air No increased work of breathing. GI soft, mildly-distended, appropriately tender Skin Incisions clean,dry, intact, with marga in place no erythema, some drainage. Lower midline and left abd small ecchymosis Drains Drains in place with serosanguineous output. Extremities Warm, well perfused, trace edema Labs: Lab Results Component Value Date WBC 9.5 04/15/2021 HGB 11.4 (L) 04/15/2021 HCT 32.3 (L) 04/15/2021 MCV 90.5 04/15/2021 LABPLAT 235 04/15/2021 Chemistry Lab Results Component Value Date SODIUM 134 (L) 04/15/2021 POTASSIUM 3.2 (L) 04/15/2021 CHLORIDE 94 (L) 04/15/2021 CO2 33 (H) 04/15/2021 ANIONGAP 7 04/15/2021 BUNSER 12 04/15/2021 CREATININE 0.98 04/15/2021 GLUCOSE 149 04/15/2021 CALCIUM 8.4 (L) 04/15/2021 BILITOT 0.5 04/13/2021 PROTEIN 7.5 03/20/2020 ALBUMIN 4.2 04/13/2021 GFRNAA 87 (L) 04/15/2021 ALKPHOS 51 04/13/2021 AST 55 (H) 04/13/2021 ALT 60 (H) 04/13/2021 PHOS 1.5 (L) 04/15/2021 MAGNESIUM 2.0 04/15/2021 Imaging: No new imaging ASSESSMENT/PLAN: 61 y.o. M with Crohn's disease (s/p proctocolectomy with J-pouch), GERD, HTN, Liver hemangioma, Nephrolithiasis, and Obesity. s/p open TAR with preperitoneal mesh 04/13/21. Remains clinically stable Neuro/Pain - Pain is well controlled on current regimen. Continue p.o. pain regimen CV - Remains hemodynamically stable. Continue monitoring, no telemetry. Pulm - No post-op respiratory insufficiency, stable on room air, cont Q1H incentive spirometry. FEN - heplock IVF, patient with no significant electrolyte abnormalities GI - Normal post-op bowel function, FLD. Resume home sulfasalazine, immodium Renal/ - Cr WNL, adequate UOP. Continue strict I/O. Heme - H/H stable, ctm , no transfusion indicated ID - WBC downtrending, no indication for ABX , ctm Endo - sugars well controlled on BMP, no Hx of DM, no insulin needed MSK - OOB as tolerated, PT/OT ordered PPX - SCDs and LVX Dispo - cont mgmt on RNF Patient d/w Attending Surgeon Dr Meryl Armstrong MD Cosigned by Ky Sheth MD at 04/16/2021 5:10 PM DATA CENTER CONSULTANT CENTER CONSULTANT CENTER CONSULTANT Associated attestation - Ky Sheth MD - 04/16/2021 5:10 PM DATA CENTER CONSULTANT I have seen and examined the patient on 04/16/21. I agree with the findings and plan of care as documented in the resident's/fellow's note.. * Gayle Armstrong MD - 04/15/2021 7:05 AM CST [facility] Minimally Invasive Surgery Daily Progress Note SUBJECTIVE: Overnight Events: No acute events overnight Interval History: Patient remains stable. S/p open AWR 04/13. Had some tachycardia, intermittent desaturation, anxiety overnight, workup including CT PE negative. Prescribed hydroxyzine p.r.n. Patient is having appropriate post-surgical pain that is well controlled. No complaints of N/V.Still awaiting bowel function. RUQ drain 165, LUQ 130 with SS drainage. UOP adequate, has been out of bed and walking OBJECTIVE: Vitals / I/O: 24hr Min/Max: Temp Min: 36.6 ??C (97.9 ??F) Max: 37.3 ??C (99.1 ??F) Pulse Min: 95 Max: 116 BP Min: 114/80 Max: 149/90 Resp Min: 16 Max: 24 SpO2 Min: 88 % Max: 97 % Vitals: 04/15/21 0130 04/15/21 0300 04/15/21 0715 04/15/21 1110 BP: 136/82 138/85 131/84 114/80 BP Location: Left arm Right arm Right arm Patient Position: Sitting Pulse: 116 104 100 104 Resp: 24 18 20 18 Temp: 36.6 ??C (97.9 ??F) 37 ??C (98.6 ??F) 37.3 ??C (99.1 ??F) TempSrc: Oral Oral Oral SpO2: (!) 88% 92% 95% 92% Weight: Height: I/O last 3 completed shifts: In: 1370 [P.O.:1370] Out: 3415 [Urine:2880; Drains:535] Physical Exam: General NAD, awake, alert, oriented Neuro Moving all extremities, no focal deficits Psych Appropriate mood and affect HEENT EOMI, conjunctiva pink Cardio Regular rate Pulm Breathing comfortably on 2L NC No increased work of breathing. GI soft, mildly-distended, appropriately tender Skin Incisions clean,dry, intact, with marga in place no erythema, some drainage Drains Drains in place with serosanguineous output. Extremities Warm, well perfused, trace edema Labs: Lab Results Component Value Date WBC 13.3 (H) 04/14/2021 HGB 12.4 (L) 04/14/2021 HCT 35.4 (L) 04/14/2021 MCV 90.8 04/14/2021 LABPLAT 273 04/14/2021 Chemistry Lab Results Component Value Date SODIUM 131 (L) 04/14/2021 POTASSIUM 3.9 04/14/2021 CHLORIDE 94 (L) 04/14/2021 CO2 33 (H) 04/15/2021 ANIONGAP 7 04/14/2021 BUNSER 23 04/14/2021 CREATININE 1.27 04/14/2021 GLUCOSE 163 04/14/2021 CALCIUM 8.3 (L) 04/14/2021 BILITOT 0.5 04/13/2021 PROTEIN 7.5 03/20/2020 ALBUMIN 4.2 04/13/2021 GFRNAA 64 (L) 04/14/2021 ALKPHOS 51 04/13/2021 AST 55 (H) 04/13/2021 ALT 60 (H) 04/13/2021 PHOS 1.7 (L) 04/14/2021 MAGNESIUM 1.6 04/14/2021 Imaging: No new imaging ASSESSMENT/PLAN: 61 y.o. M with Crohn's disease (s/p proctocolectomy with J-pouch), GERD, HTN, Liver hemangioma, Nephrolithiasis, and Obesity. s/p open TAR with preperitoneal mesh 04/13/21 Remains clinically stable Neuro/Pain - Pain is well controlled on current regimen. 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 pain regimen CV - Remains hemodynamically stable. Continue monitoring, no telemetry. Pulm - No post-op respiratory insufficiency, stable on room air, cont Q1H incentive spirometry. FEN - heplock IVF, patient with no significant electrolyte abnormalities GI - Normal post-op bowel function, CLD Renal/ - Cr WNL, adequate UOP. Continue strict I/O. Heme - H/H stable, ctm, no transfusion indicated ID - WBC d heowntrending, no indication for ABX , ctm Endo - sugars well controlled on BMP, no Hx of DM, no insulin needed MSK - OOB as tolerated, PT/OT ordered PPX - SCDs and LVX Dispo - cont mgmt on RNF Patient d/w Attending Surgeon Dr Meryl Armstrong MD Cosigned by Ky Sheth MD at 04/15/2021 4:16 PM DATA CENTER CONSULTANT CENTER CONSULTANT CENTER CONSULTANT Associated attestation - Ky Sheth MD - 04/15/2021 4:16 PM DATA CENTER CONSULTANT I have seen and examined the patient on 04/15/21. I agree with the findings and plan of care as documented in the resident's/fellow's note.. * Britta Hancock OT - 04/14/2021 11:18 AM CST Occupational Therapy Occupational Therapy Initial Assessment NOTE:This is a summary note for the griffith assessments completed during the evaluation session. For full details, review chart review for all flowsheets documented on by this Occupational Therapist on this date. Vital signs documented in vital signs flowsheet. Assessment Assessment Barriers to Discharge: None Plan Plan Plan: Discharge, If this is the last note, consider this the discharge summary OT Recommendation and Plan Recommendation/Plan OT Recommendation: Home with family, Home with 24 hour supervision OT Recommendation/Plan Comments: 24 hour supervision recommended then a progression to intermittentassist OT Frequency: One-time visit (Discharge from this service) (0) Comments: Pt educated on role of OT, abdominal precautions, adaptive strategies for ADL completion,and discharge recommendations. Pt educated on breathing techniques to reduce abdominal pressure during ADLs and functional transfers. Pt with no further questions or concerns regarding a safe discharge home. OT - OK to Discharge: Yes OT Evaluation Complete: Yes General Information General Chart Reviewed: Yes Session Type: Evaluation (initial discharge) OT Received On: 04/14/21 Safe Environment: Arm Band Checked, Call Light within Reach, Notified RN, Session Completed Bedside, Patient found in Supine, Overbed Table within Reach, Bed in Lowest Position with Wheels locked (Ptleft supine in bed w/ call light in reach) Subjective: Agreeable to Therapy Family/Caregiver Present: Yes (Pt's spouse) Occupational Therapy-Patient Goal: no acute OT goals stated Precautions Precautions Precautions: Abdominal, Drains Precaution Handout Issued: Yes Precaution Comments: Abdominal precautions reviewed with pt. Pt demonstrated and verbalized understanding during ADLs and functional mobility. PPE worn by OT: gloves and mask. Home Living Home Living Type of Home: House Home Layout: One level, Basement, Able to live on main level with bedroom/bathroom Home Access: Stairs to enter without rails Entrance Stairs-Number of Steps: 1 Bathroom Shower/Tub: Walk-in shower with threshold Bathroom Toilet: Raised Home Mobility Equipment: (walking stick) Additional Comments: no use of DME at baseline Prior Function Prior Function Level of Delta: Independent with ADLs, Independent functional transfers, Needs assistance with homemaking Lives With: Spouse Receives Help From: Spouse/Significant other, Family (FT assist) ADL Assistance: Independent Instrumental ADL (IADL) Assistance: Needs assistance Meal Prep: ( completes) Laundry: ( completes) Cleaning: ( completes) Yard Work: Independent Shopping: Independent 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 Fall within the last 6 months: No Activities of Daily Living Grooming Grooming: Where assessed: Standing at sink Grooming: Level of assistance: Distant Supervision (observed 2X) Grooming: Assistance with: Safety LE Dressing LE Dressing: Where assessed: Sitting, Standing, Edge of bed LE Dressing: Level of assistance: Distant Supervision LE Dressing: Assistance with: Safety, Maintains precautions, Increased time to complete Toileting Toileting: Where assessed: Toilet Toileting: Level of assistance: Distant Supervision Toileting: Assistance with: (safety) Toilet Transfers Toilet Transfer From: Bed Toilet Transfer Type: To and from Toilet Transfer to: Standard toilet Toilet Transfer Technique: Ambulating Toilet Transfer: Equipment: Grab bar Toilet Transfers: Supervision Toilet Transfers Comments: distant spv for safety; completed 2X during session Pain Pain Assessment Pain Assessment: 0-10 Pain Score: 0 - No pain Cognition Cognition Arousal/Alertness: Alert, Appropriate responses to stimuli Attention Span: Appears intact Memory: Appears intact Current communication: Appears Intact Orientation : Oriented X4 (person, place, time, situation) Following Commands: Follows all commands and directions without difficulty Safety Judgment: Good awareness of safety precautions Awareness of Errors: Good awareness of errors made Insight: Fully aware of deficits Problem Solving: Able to problem solve independently Compliance/Behavior: Easy to engage Perseveration: Not present Short Blessed Test What year is it now?: Correct What month is it now?: Correct Repeat this name and address after me: Ankur Pan [address] [place] [address] Without looking at the clock, tell me what time it is: Correct-within one hour Count aloud backwards from 20-1: 0 Errors Say the months of the year backwards in reverse order: 0 Errors Repeat the name and address I asked you to remember: 0 Errors Short Blessed Total Score: 0 Short Blessed Comments: wnl 6 Clicks Daily Activity - 6 Clicks Putting on and taking off regular lower body clothing: A Little Bathing: A little Toileting: A little Putting on and taking off upper body clothing: A Little Personal Grooming: A little Eating Meals: None Total Score (range 6-24): 19 Score Interpretation: 19 Balance Static Sitting Balance Static Sitting-Balance Support: No upper extremity supported, Feet supported Static Sitting-Sitting Surface: Bed Static Sitting-Level of Assistance: Distant supervision Static Sitting-Comment/# of Minutes: for safety Dynamic Sitting Balance Dynamic Sitting-Balance Support: No upper extremity supported, Feet supported Dynamic Sitting-Balance: Lateral lean, Forward lean, Reaching for objects, Reaching across midline Dynamic Sitting-Sitting Surface: Bed Dynamic Sitting-Level of Assistance: Distant supervision Dynamic Sitting-Comments: for safety Static Standing Balance Static Standing-Balance Support: No upper extremity supported Static Standing-Standing Surface: Floor Static Standing-Level of Assistance: Distant supervision Static Standing-Comment/# of Minutes: for safety Dynamic Standing Balance Dynamic Standing-Balance Support: Unilateral upper extremity supported Dynamic Standing-Balance: Lateral lean, Forward lean, Reaching for objects, Reaching across midline Dynamic Standing-Standing Surface: Floor Dynamic Standing-Level of Assistance: Distant supervision Dynamic Standing-Comments: for safety Transfers Transfers Transfer: Yes Transfer 1 Transfer From 1: Sit Transfer Type 1: To and from Transfer to 1: Stand Technique 1: Sit to stand, Stand to sit Transfer Device 1: No device Transfer Level of Assistance 1: Distant supervision Trials/Comments 1: for safety, cues for breathing technique Transfers 2 Trials/Comments 2: Pt ambulated throughout room w/ distant spv and no use of device. Bed Mobility Bed Mobility Bed Mobility: Yes Bed Mobility 1 Bed Mobility From 1: Supine Bed Mobility Type 1: To and from Bed Mobility to 1: Edge of bed Level of Assistance 1: Distant Supervision Bed Mobility Comments 1: HOB elevated, logroll technique completed, observed 2X during session RUE Assessment RUE Assessment RUE Assessment: Within Functional Limits LUE Assessment LUE Assessment LUE Assessment: Within Functional Limits Other Comments Other Comments Comments: Pt educated on role of OT, abdominal precautions, adaptive strategies for ADL completion,and discharge recommendations. Pt educated on breathing techniques to reduce abdominal pressure during ADLs and functional transfers. Pt with no further questions or concerns regarding a safe discharge home. OT Goals Multi-Disciplinary Problems (from Occupational Therapy) Active Problems Not on file CENTER CONSULTANT * Meghann Claros RN - 04/14/2021 10:42 AM CST CM Initial Assessment Interview Note Information Obtained From: Patient (04/14/211031) Admission Source: from home Impression: 61 year old awr Plan Includes: return home with spouse, no need for hh or dme Primary Source of Transportation: car/ Health Insurance Coverage: [employer] Prescription Coverage: yes Pharmacy: [facility] Primary Care Provider: Mike Mitchell MD Prior to Admission: Primary Caregiver: Self Support System: Spouse/Significant Other Support system contact info (name, phone, availablity): yaz [phone] Home Care Services: No Durable Medical Equipment: None Living Arrangements: Spouse/significant other Type of Residence: Private residence Medication management: (indpendent) (04/14/211031) Potential discharge needs include:none Dialysis: none Behavioral Health Services: Behavioral Health Services: No (04/14/211031) Patient expects to be Discharged to: Private residence, (04/14/211031) Additional Information: 61 year old independent adl, lived with Patient's Identified Problem/Goal Problem: Ensure acute medical needs are met and that patient has a safe discharge plan. Goal: Secure a discharge plan that patient/family are agreeable with and ensure patient has continuum of care. Case management will follow for discharge planning and send referrals as needed. Goals include: To assure continuity of care, To maximize coping skills, To assure patient is in a safe environment and To assure access to community resources. Plan includes: 1. Collaboration with patient, MD, direct care nurse, Manager Managing, Nurse Coordinator and other members of the health care team to assure needed interventions completed. 2. Return patient to optimal level of self-care post discharge. 3. Shipping And Receiving Associate will follow for Discharge Planning - interventions as needed 4. Anticipated level of care at discharge 5. Planned Discharge Disposition Based on a comprehensive family assessment, assistance with instrumental activities of daily livingafter discharge will be provided by spouse Through the course of our work I determined that the spouse possesses the skill and ability to provide and monitor the care of the patient when he or she returns home. spouse has the capacity to provide/monitor/arrange for the care of the patient. Finally, we determined that spouse has the knowledge of available resources and that combining them with their existing resources will suffice to sustain and care for the patient when he or she returns home. The treatment team is aware of this information. All are in agreement with the aftercare plan. Meghann Claros, RN CENTER CONSULTANT * Delia Xie DPT - 04/14/2021 9:34 AM CST Physical Therapy Physical Therapy Initial Assessment NOTE: This is a summary note for the griffith assessments completed during the evaluation session. For full details, review chart review for all flowsheets documented on by this physical therapist on thisdate. Vital signs documented in vital signs flowsheet. Assessment Assessment Prognosis: Good Problem List: (no further acute care PT needs) Plan Plan Plan : Discharge, If this is the last note, consider this the discharge summary PT Recommendation and Plan Recommendation/Plan PT Recommendation/Plan: Home with family, Home with intermittent assist PT Frequency: One time visit (Discharge from this service) PT Equipment Recommended: None PT Evaluation Complete: Yes General Information General Chart Reviewed: Yes Session Type: Evaluation (initial discharge) PT Received On: 04/14/21 Safe Environment: Arm Band Checked, Call Light within Reach, Patient found sitting in Chair, Overbed Table within Reach (left sidelying in bed at the end of the session) Subjective: Agreeable to Therapy Family/Caregiver Present: No Physical Therapy-Patient Goal: Pt is agreeable to goals set in the acute care setting Prior Function Prior Function Level of Delta: Independent functional transfers, Independent with ambulation (without AD) Lives With: Spouse Receives Help From: Spouse/Significant other, Family (full-time assistance) Fall within the last 6 months: No Home Living Home Living Type of Home: House Home Layout: One level Home Access: Stairs to enter without rails Entrance Stairs-Number of Steps: 1 Home Mobility Equipment: (walking sticks) Precautions Precautions Precaution Handout Issued: Yes Precaution Comments: PT educated on abdominal protective strategies Pain Pain Assessment Pain Assessment: No/denies pain Cognition Cognition Arousal/Alertness: Alert Orientation : Oriented X4 (person, place, time, situation) Following Commands: Follows all commands and directions without difficulty 6 Clicks Basic Mobility - 6 Click How much difficulty does the patient have: Turning over in bed: None How much difficulty does the patient currently have: Sitting down and standing up from a chair witharms?: None How much difficulty does the patient have: Moving from lying on back to sitting on the side of the bed?: None How much difficulty does the patient have: Moving to and from a bed to a chair including wheelchair?: None How much help does the patient currently need: Walk in hospital room?: A little How much help from another person does the patient currently need: Climbing 3-5 steps with a railing?: A little Total 6 Click Score (range 6-24): 22 Score Interpretation: 22 Bed Mobility Bed Mobility Bed Mobility: Yes Bed Mobility 1 Bed Mobility From 1: Edge of bed Bed Mobility Type 1: To Bed Mobility to 1: Supine, Side lying-left Level of Assistance 1: Distant Supervision Bed Mobility Comments 1: with HOB flat via log roll technique, cues for technique Transfers Transfers Transfer: Yes Transfer 1 Transfer From 1: Sit Transfer Type 1: To and from Transfer to 1: Stand Transfer Device 1: No device Transfer Level of Assistance 1: Modified Independent Trials/Comments 1: with B UE support Balance Ambulation Ambulation Ambulation: Yes Ambulation 1 Distance (ft) 1: 150 Surface 1: Level tile Device 1: No device Assistance 1: Distant supervision Quality of Gait 1: decreased wilmer Stairs Stairs Stairs: Yes Stairs Number of Stairs 1: 2 Rails 1: Left Assistance 1: Distant supervision Curbs RLE Assessment RLE Assessment RLE Assessment: Within Functional Limits LLE Assessment LLE Assessment LLE Assessment: Within Functional Limits Equipment Used Equipment Use Equipment Use Comments: gait belt not applied 2/2 abdominal incision Other Comments Other Comments Other PT Comments: PT reviewed activity recommendations including ambulating 3-5 times per day withsupervision in the hospital. The pt reported symptoms of lightheadedness throughout the session that the pt reports improved after drinking some cranberry juice. HONG ortega PT Goals Multi-Disciplinary Problems (from Physical Therapy) Active Problems Not on file CENTER CONSULTANT * Gayle Armstrong MD - 04/14/2021 5:52 AM CST [facility] Minimally Invasive Surgery Daily Progress Note SUBJECTIVE: Overnight Events: No acute events overnight Interval History: Patient remains stable. POD 1 AWR. Had some incisional sanguinous drainage that has resolved. Patient is having appropriate post-surgical pain that is well controlled. No complaints of N/V.. Still awaiting bowel function. RUQ drain 185, LUQ 335 both with SS drainage. OBJECTIVE: Vitals / I/O: 24hr Min/Max: Temp Min: 36 ??C (96.8 ??F) Max: 37.1 ??C (98.78 ??F) Pulse Min: 74 Max: 107 BP Min: 112/88 Max: 185/93 Resp Min: 13 Max: 26 SpO2 Min: 89 % Max: 98 % Vitals: 04/13/21 1930 04/13/21202904/13/21 2320 04/14/21 0300 BP: 129/78 128/75 136/82 124/83 BP Location: Right arm Right arm Right arm Right arm Patient Position: Pulse: 96 98 97 98 Resp: Temp: 36.6 ??C (97.9 ??F) 36.6 ??C (97.9 ??F) 36.8 ??C (98.2 ??F) 37 ??C (98.6 ??F) TempSrc: Oral Oral Oral Oral SpO2: 93% 93% 95% 93% Weight: Height: I/O last 3 completed shifts: In: 3000 [I.V.:3000] Out: 1210 [Urine:680; Drains:330; Blood:200] Physical Exam: General NAD, awake, alert, oriented Neuro Moving all extremities, no focal deficits Psych Appropriate mood and affect HEENT EOMI, conjunctiva pink Cardio Regular rate Pulm Breathing comfortably on 2L NC No increased work of breathing. GI soft, mildly-distended, appropriately tender Skin Incisions clean,dry, intact, with airstrip in place no erythema, some drainage Drains Drains in place with serosanguineous output. Liz in place lyubov urine Extremities Warm, well perfused, No edema Labs: Lab Results Component Value Date WBC 15.8 (H) 04/13/2021 HGB 15.5 04/13/2021 HCT 45.5 04/13/2021 MCV 91.2 04/13/2021 LABPLAT 261 04/13/2021 Chemistry Lab Results Component Value Date SODIUM 138 04/13/2021 POTASSIUM 4.0 04/13/2021 CHLORIDE 100 04/13/2021 CO2 27 04/13/2021 ANIONGAP 11 04/13/2021 BUNSER 16 04/13/2021 CREATININE 1.12 04/13/2021 GLUCOSE 149 04/13/2021 CALCIUM 8.9 04/13/2021 BILITOT 0.5 04/13/2021 PROTEIN 7.5 03/20/2020 ALBUMIN 4.2 04/13/2021 GFRNAA 74 (L) 04/13/2021 ALKPHOS 51 04/13/2021 AST 55 (H) 04/13/2021 ALT 60 (H) 04/13/2021 Imaging: No new imaging ASSESSMENT/PLAN: 61 y.o. M with Crohn's disease (s/p proctocolectomy with J-pouch), GERD, HTN, Liver hemangioma, Nephrolithiasis, and Obesity. s/p open TAR with preperitoneal mesh 04/13/21 He is doing well postoperatively Neuro/Pain - Pain is well controlled on current regimen. 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 Continue monitoring, no telemetry. Pulm - no respiratory insuffiency, wean O2. FEN - D5 1/2NS 75/h, patient with no significant electrolyte abnormalities GI - Normal post-op bowel function, limited CLD (250cc q8h) Renal/ - Cr WNL, adequate UOP. Continue strict I/O. Heme - H/H stable, ctm, no transfusion indicated ID - WBC 15.8, no indication for ABX , ctm Endo - sugars well controlled on BMP, no Hx of DM, no insulin needed MSK - OOB as tolerated, PT/OT ordered PPX - SCDs and LVX Dispo - cont mgmt on RNF Patient d/w Attending Surgeon Dr Meryl Armstrong MD Cosigned by Ky Sheth MD at 04/15/2021 6:04 AM DATA CENTER CONSULTANT CENTER CONSULTANT CENTER CONSULTANT Associated attestation - Ky Sheth MD - 04/15/2021 6:04 AM DATA CENTER CONSULTANT I have seen and examined the patient on 04/14/2021. I agree with the findings and plan of care as documented in the resident's/fellow's note.. * Mariia Ayon MD - 04/13/2021 5:45 PM CST Post Op Check Note Kris Spence 1960 [id number] Pt returns from the OR 04/13/2021 s/p Open repair of recurrent, incarcerated incisional hernia with mesh, Abdominal wall reconstruction, Removal of mesh by Ky Sheth MD for Pre-op Diagnosis * Incisional hernia, without obstruction or gangrene [K43.2] Pain:controlled Nausea: No Urine output adequate: Yes Diet: Dietary Orders (From admission, onward) Start Ordered 04/13/21 1716 NPO Diet Diet effective now 04/13/21 1715 Physical Exam: Vitals: 04/13/21 1730 BP: 113/84 Pulse: 98 Resp: 16 Temp: 36.6 ??C (97.9 ??F) SpO2: 94% Constitutional: alert and oriented x3 and no acute distress Abdomen soft, appropriately tender, RAMO drains with SS output Incision/Dressing is clean, dry, intact Assessment and Plan Doing well. Continue current management. 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 Kris Spence is a 61 y.o. male who underwent Open repair of recurrent, incarcerated incisional hernia with mesh, Abdominal wall reconstruction, and Removal of mesh for Recurrent incisional hernia. Resting comfortably, pain well controlled with IV pain medication . Denies nausea/vomiting, chest pain, shortness of breath. Hemodynamically stable with no complaints at this time. Past Medical History: Diagnosis Date ??? Pam positive ??? GERD (gastroesophageal reflux disease) ??? HTN (hypertension) ??? Liver hemangioma ??? Nephrolithiasis ??? Obesity OBJECTIVE: Vitals: 04/13/21 1650 BP: Pulse: Resp: Temp: 36.5 ??C (97.7 ??F) SpO2: General: No acute distress, resting comfortably HEENT: EOMI, Moist mucous membranes, Nasal cannula CV: Regular Rate, normal S1, S2 Pulmonary: Nonlabored breathing, clear to auscultation bilaterally. Saturating well on 2L NC Abdomen: Soft, appropriately TTP, nondistended. Midline incision with dressing in place. Minimal saturation. 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 Wean O2 as tolerated. GI: anti emetics PRN. Monitor incision, drain output, abdominal binder Diet: NPO w/ sips/chips Renal/ IVF: continue mIVF, Liz Endo: na ID: Ancef x2 doses PM Labs: CBC, BMP Consults: PT/OT Activity: Up in chair for 2-3 hours tid; Ambulation tid DVT ppx: SCD's, Lovenox Celestino Ruiz MD PGY-1 General Surgery CENTER CONSULTANT CENTER CONSULTANT documented in this encounter H&P Notes * Ky Sheth MD - 04/13/2021 5:59 AM CST I have reviewed the H&P, examined the patient, and endorse the findings as written. Plan of Care : Based on the above findings, I consider Kris Spence to be an acceptable risk for : Procedure(s): OPEN REPAIR INCISIONAL HERNIA OPEN RECONSTRUCTION ABDOMINAL WALL CENTER CONSULTANT Source Note - Shea Limon FRAME WIRER - 03/17/2021 8:36 AM DATA CENTER CONSULTANT Images from the original note were not included. Center for Preoperative Assessment and Planning Preoperative Evaluation Record Evaluation type/location: CPAP [facility] Planned procedure site: [facility] PVT OR (Pod 1) Date: [...] BP - 80 Pertinent negatives: CAD ; IA ; CABG ; valvular heart disease; valve [...] a 14-day T&S specimen. Pt returned to [facility] on 04/02 for 14 day T&S. [...] COVID19 testing to be performed on 04/09. [facility] will place the order for [...] 14-day T&S specimen (04/02, left message on for pt to confirm appt date at [facility]). (T&S plan previously discussed with [...] for pt to confirm appt date at [facility]). (T&S plan previously discussed with [...] to crossmatch) but thereis anticipated availability at [facility] blood bank. Based on this [...] Tomatoes and oranges ??? Iron Rash ??? Walton Juice Hives ??? Walton Oil Hives ??? Sulfa (Sulfonamide Antibiotics) Hives [...] 1 TABLET BY MOUTH EVERY DAY esomeprazole (NexIUM) 20 mg capsule 02/05/20 -- Amie [...] mg/mL solution -- -- Amie Odonnell MD [id number] tablet -- -- Amie Odonnell MD sildenafiL, [...] ??? loperamide (IMODIUM) 0.133 mg/mL solution ??? [id number] tablet ??? sildenafiL, pulm.hypertension, (REVATIO) 20 mg [...] last 720 hours. STOP-Bang Total Score: 5 CENTER CONSULTANT CENTER CONSULTANT CENTER CONSULTANT CENTER CONSULTANT CENTER CONSULTANT documented in this encounter Procedure Notes * Polly Graf NP - 04/17/2021 12:16 PM CST Procedures Abdominal RAMO drains x 2 draining serosanguinous fluid, sites without erythema or drainage. Superficial bruising noted along incision and inferiorly. RAMO drains removed intact, dressing applied. Patient tolerated well. Instructions given. CENTER CONSULTANT documented in this encounter Nursing Notes * Reshma Mello RN - 04/15/2021 2:23 AM CST Patient called RN into room stating, something is wrong. Upon arrival patient noted to be in tripod positioning appearing to be in respiratory distress. Vitals were taken: BP: 128/80, SpO2: 87% RA,HR: 110. Patient placed on 2L O2 via nasal cannula and a call was placed to MD Familia Tracy who came tobedside. ABG with POC lactate complete by AMINTA Issa RN. CBC and troponin drawn and sent to lab. Chest XR complete. Patient placed on dinomap with continuous pulse ox in use to try and wean off oxygen. Will continue to monitor patient closely. CENTER CONSULTANT * Reshma Mello RN - 04/14/2021 10:01 PM CST Assessment of patient???s baseline is established at the beginning of the shift in flowsheets. Patient reassessed per order, unexpected findings and/or deviations from baseline are captured in flowsheets. Frequent safety checks and comfort rounds provided. Orders and/or nursing care completed as indicated. Patient monitored for response to interventions and treatments as documented in flowsheets.Patient states pain is tolerable when sitting but raises to a 6/10 with movement. Plan of care discussed with patient/insurance healthcare representative, including as it relates to Principal Problem: Recurrent incisional hernia Patient progressing. Clinical goals for the shift pain control, ambulation. Education provided includes Fall Prevention, Modified Diet/Oral Supplements and Pain Management. Patient and/or insurance healthcare representative Verbalizes understanding. Will continue to monitor. CENTER CONSULTANT * Shanell Gunter RN - 04/14/2021 5:45 PM CST Assessment of patient???s baseline is established at the beginning of the shift in flowsheets. Patient reassessed per order, unexpected findings and/or deviations from baseline are captured in flowsheets. Frequent safety checks and comfort rounds provided. Orders and/or nursing care completed as indicated. Patient monitored for response to interventions and treatments as documented in flowsheets.Patient agrees to the plans for today's shift. Plan of care discussed with patient/insurance healthcare representative, including as it relates to Principal Problem: Recurrent incisional hernia Patient progressing. Clinical goals for the shift walk in halls three times for today's shift, paincontrol, tolerating diet. Education provided includes Discharge Planning, Fall Prevention, Pain Management and Self-Care: ADLs. Patient and/or insurance healthcare representative Verbalizes understanding. Will continue to monitor. CENTER CONSULTANT * Reshma Mello RN - 04/13/2021 10:54 PM CST Assessment of patient???s baseline is established at the beginning of the shift in flowsheets. Patient reassessed per order, unexpected findings and/or deviations from baseline are captured in flowsheets. Frequent safety checks and comfort rounds provided. Orders and/or nursing care completed as indicated. 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 Plan of care discussed with patient/insurance healthcare representative, including as it relates to Principal Problem: Recurrent incisional hernia Patient progressing. Clinical goals for the shift ambulation, monitor I/Os, pain control. Educationprovided includes Fall Prevention and Skin Breakdown Prevention/Treatment. Patient and/or insurance healthcare representative Verbalizes understanding. Will continue to monitor. CENTER CONSULTANT * Shanell Gunter RN - 04/13/2021 5:15 PM CST Patient admitted to [facility] [facility] from POD 1 PACU via bed, accompanied by OR transporter. Covering service notified. Patient presents post operatively of open repair of recurrent, incarcerated incision herniawith mesh, abdominal wall reconstruction, removal of mesh. Orders reviewed & will continue to monitor. Patient and/or insurance healthcare representative oriented to environment, equipment, and informed of the following as found in admission booklet: patient rights & responsibilities, visitor policy, hand and respiratory hygiene practice. Other education includes: Discharge Planning, Fall Prevention, Pain Managementand Self-Care: ADLs. Patient and/or insurance healthcare representative Verbalizes understanding. CENTER CONSULTANT documented in this encounter Miscellaneous Notes * Provider Query - Christiane Hernández - 04/17/2021 12:35 PM CST Specify the condition you are evaluating, treating or monitoring and document in the medical recordand the form below. Provider Response : _x___ Acute blood loss anemia ____ Acute blood loss anemia on baseline chronic anemia ____ Iron deficiency anemia ____ Precipitous drop in Hemoglobin or Hematocrit ____ Findings clinically insignificant ____ Other (specify below) ____ Clinically unable to determine Additional Provider Response: Hgb 11.4 c/w ABLA Clinical Indicators/Treatments: Patient has a history of Anemia 04/13 Open repair of recurrent incisional hernia Estimated Blood Loss: 200 mls 04/13 ?? NOTE ON COMPLEXITY: Please note that this procedure was incredibly difficult in comparison to the traditional incisional hernia repair. This was due to the multiply recurrent nature, previous hernia repairs, previous mesh, significant adhesions and size of the defect. This required a significant increase in the amountof time and energy required to complete the repair and resulted in an increase blood loss during the procedure in comparison to traditional incisional hernia repairs. ?? Ref. Range 04/13/2021 20:12 04/14/2021 22:00 04/15/2021 20:11 Hgb Latest Ref Range: 13.0 - 17.5 g/dL 15.5 12.4 (L) 11.4 (L) Hct Latest Ref Range: 38.9 - 50.3 % 45.5 35.4 (L) 32.3 (L) DC order to continue on Iron Plus Vit Use of terms such as likely, suspected, possible, or probable (associated with a specific diagnosisthat is being evaluated, monitored, or treated as if it exists) are acceptable and can be coded in the inpatient setting when documented at the time of discharge. This documentation will become part of the patient???s medical record. Sincerely, Clinical Documentation Integrity Christiane Foster RN, THERESAP,[email or web address] CENTER CONSULTANT * Provider Query - Christiane Hernández - 04/17/2021 12:28 PM CST Specify a diagnosis that accurately reflects the lab findings, and document in the medical record and on the form below. Provider Response: _x__Hypophosphatemia ___Abnormal laboratory findings, inconclusive diagnosis ___Clinically insignificant abnormal laboratory findings ___Other, specify below ___Clinically unable to determine Additional Provider Response: Phosphate 1.7 c/w hypophosphatemia Clinical Indicators/Treatments: Ref. Range 04/14/2021 20:50 04/15/2021 20:11 04/16/2021 21:45 Phosphorus, pl Latest Ref Range: 2.3 - 4.5 mg/dL 1.7 (L) 1.5 (L) 2.2 (L) potassium, sodium phosphates (PHOS-NAK) 280-160-250 mg packet 2 packet TID Use of terms such as likely, suspected, possible, or probable (associated with a specific diagnosisthat is being evaluated, monitored, or treated as if it exists) are acceptable and can be coded in the inpatient setting when documented at the time of discharge. This documentation will become part of the patient???s medical record. Sincerely, Clinical Documentation Integrity Christiane Foster RN, THERESAP,[email or web address] CENTER CONSULTANT * Plan of Care - Rainer Mixon RN - 04/17/2021 10:15 AM CST Problem: Health Behavior: Goal: Understanding of discharge needs will improve 04/17/20211014 by Rainer Mixon RN Outcome: Completed 04/17/20211014 by Rainer Mixon RN Outcome: Completed Problem: Lack of Knowledge: Goal: Ability to develop a pain control plan will improve 04/17/20211014 by Rainer Mixon RN Outcome: Completed 04/17/20211014 by Rainer Mixon RN Outcome: Completed Goal: Ability to identify pain intensity on a pain scale and rate it consistently will improve 04/17/20211014 by Rainer Mixon RN Outcome: Completed 04/17/20211014 by Rainer Mixon RN Outcome: Completed Goal: Ability to notify healthcare provider of pain before it becomes unmanageable or unbearable will improve 04/17/20211014 by Rainer Mixon RN Outcome: Completed 04/17/20211014 by Rainer Mixon RN Outcome: Completed Problem: Medication: Goal: Satisfaction with pain management regimen will improve 04/17/20211014 by Rainer Mixon RN Outcome: Completed 04/17/20211014 by Rainer Mixon RN Outcome: Completed Problem: Sensory: Goal: Ability to identify factors that increase the pain will improve 04/17/20211014 by Rainer Mixon RN Outcome: Completed 04/17/20211014 by Rainer Mixon RN Outcome: Completed Goal: Pain level will decrease 04/17/20211014 by Rainer Mixon RN Outcome: Completed 04/17/20211014 by Rainer Mixon RN Outcome: Completed Problem: Lack of Knowledge: Goal: Verbalization of understanding the information provided will improve 04/17/20211014 by Rainer Mixon RN Outcome: Completed 04/17/20211014 by Rainer Mixon RN Outcome: Completed Problem: Fluid Volume: Goal: Maintenance of adequate hydration will improve 04/17/20211014 by Rainer Mixon RN Outcome: Completed 04/17/20211014 by Rainer Mixon RN Outcome: Completed Goal: Will show no signs and symptoms of electrolyte imbalance 04/17/2021 1015 by Rainer Mixon RN Outcome: Completed 04/17/2021 1015 by Rainer Mixon RN Outcome: Completed Problem: Nutritional: Goal: Maintenance of adequate nutrition will improve 04/17/2021 1015 by Rainer Mixon RN Outcome: Completed 04/17/2021 1015 by Rainer Mixon RN Outcome: Completed Problem: Sensory: Goal: Occurrences of nausea will decrease Outcome: Completed Problem: Lack of Knowledge: Goal: Ability to state ways to decrease the risk of falls will improve Outcome: Completed Problem: Safety: Goal: Will remain free from falls Outcome: Completed Goal: Will remain free from injury from falls Outcome: Completed Goal: Will remain free from falls and injury in home environment Outcome: Completed Problem: Lack of Knowledge: Goal: Understanding of ways to prevent infection will improve Outcome: Completed Problem: Skin Integrity: Goal: Will remain free from wound infection Description: World Health Organization (WHO) identifies hands as the main mode of germ transmissionin health care. Hand hygiene may be considered the most important measure performed to avoid transmission of germs and prevent health care associated infection. Outcome: Completed Goals: Clinical Goals for the Shift: Vital signs stable, pain/nausea control, ambulation, fall prevention,elimination, discharge Summary: Patient stable for discharge. Rainer Mixon RN 04/17/2021 10:15 AM CENTER CONSULTANT * Plan of Care - Ashley Valenzuela RN - 04/16/2021 11:04 PM CST Goals: Clinical Goals for the Shift: Pain control, monitor I/Os, RAMO drain care, ambulation Problem: Health Behavior: Goal: Understanding of discharge needs will improve Outcome: Progressing Problem: Lack of Knowledge: Goal: Ability to develop a pain control plan will improve Outcome: Progressing Goal: Ability to identify pain intensity on a pain scale and rate it consistently will improve Outcome: Progressing Goal: Ability to notify healthcare provider of pain before it becomes unmanageable or unbearable will improve Outcome: Progressing Problem: Medication: Goal: Satisfaction with pain management regimen will improve Outcome: Progressing Problem: Sensory: Goal: Ability to identify factors that increase the pain will improve Outcome: Progressing Goal: Pain level will decrease Outcome: Progressing Problem: Lack of Knowledge: Goal: Verbalization of understanding the information provided will improve Outcome: Progressing Problem: Fluid Volume: Goal: Maintenance of adequate hydration will improve Outcome: Progressing Goal: Will show no signs and symptoms of electrolyte imbalance Outcome: Progressing Problem: Nutritional: Goal: Maintenance of adequate nutrition will improve Outcome: Progressing Problem: Sensory: Goal: Occurrences of nausea will decrease Outcome: Progressing Problem: Lack of Knowledge: Goal: Ability to state ways to decrease the risk of falls will improve Outcome: Progressing Problem: Safety: Goal: Will remain free from falls Outcome: Progressing Goal: Will remain free from injury from falls Outcome: Progressing Goal: Will remain free from falls and injury in home environment Outcome: Progressing Problem: Lack of Knowledge: Goal: Understanding of ways to prevent infection will improve Outcome: Progressing Problem: Skin Integrity: Goal: Will remain free from wound infection Description: World Health Organization (WHO) identifies hands as the main mode of germ transmissionin health care. Hand hygiene may be considered the most important measure performed to avoid transmission of germs and prevent health care associated infection. Outcome: Progressing Summary: Pain is tolerable with medications, repositioning, and ambulation. Tolerating GI ileostomydiet. RAMO drains are putting out an adequate amount of drainage. Ambulated a few times on my shift. Hourly rounds have been completed. CENTER CONSULTANT * Plan of Care - Rainer Mixon RN - 04/16/2021 11:57 AM CST Problem: Health Behavior: Goal: Understanding of discharge needs will improve Outcome: Progressing Problem: Lack of Knowledge: Goal: Ability to develop a pain control plan will improve Outcome: Progressing Goal: Ability to identify pain intensity on a pain scale and rate it consistently will improve Outcome: Progressing Goal: Ability to notify healthcare provider of pain before it becomes unmanageable or unbearable will improve Outcome: Progressing Problem: Medication: Goal: Satisfaction with pain management regimen will improve Outcome: Progressing Problem: Sensory: Goal: Ability to identify factors that increase the pain will improve Outcome: Progressing Goal: Pain level will decrease Outcome: Progressing Problem: Lack of Knowledge: Goal: Verbalization of understanding the information provided will improve Outcome: Progressing Problem: Fluid Volume: Goal: Maintenance of adequate hydration will improve Outcome: Progressing Goal: Will show no signs and symptoms of electrolyte imbalance Outcome: Progressing Problem: Nutritional: Goal: Maintenance of adequate nutrition will improve Outcome: Progressing Problem: Sensory: Goal: Occurrences of nausea will decrease Outcome: Progressing Problem: Lack of Knowledge: Goal: Ability to state ways to decrease the risk of falls will improve Outcome: Progressing Problem: Safety: Goal: Will remain free from falls Outcome: Progressing Goal: Will remain free from injury from falls Outcome: Progressing Goal: Will remain free from falls and injury in home environment Outcome: Progressing Problem: Lack of Knowledge: Goal: Understanding of ways to prevent infection will improve Outcome: Progressing Problem: Skin Integrity: Goal: Will remain free from wound infection Description: World Health Organization (WHO) identifies hands as the main mode of germ transmissionin health care. Hand hygiene may be considered the most important measure performed to avoid transmission of germs and prevent health care associated infection. Outcome: Progressing Goals: Clinical Goals for the Shift: Vital signs stable, pain/nausea control, ambulation, fall prevention,elimination, maintenance of drains and IVs Summary: Patient interested in learning. Rainer Mixon RN 04/16/2021 11:57 AM CENTER CONSULTANT * Plan of Care - Sybil Squires RN - 04/16/2021 9:40 AM CST Pt is post op incisional hernia repair. Had BM, plan to adv diet. Anticipate discharge home tomorrow. Pt's drains to be removed prior to discharge. No discharge needs identified at this time. CM willcontinue to follow. CENTER CONSULTANT * Plan of Care - Bina Roper - 04/15/2021 9:36 PM CST Problem: Health Behavior: Goal: Understanding of discharge needs will improve Outcome: Progressing Problem: Lack of Knowledge: Goal: Ability to develop a pain control plan will improve Outcome: Progressing Goal: Ability to identify pain intensity on a pain scale and rate it consistently will improve Outcome: Progressing Goal: Ability to notify healthcare provider of pain before it becomes unmanageable or unbearable will improve Outcome: Progressing Problem: Medication: Goal: Satisfaction with pain management regimen will improve Outcome: Progressing Problem: Sensory: Goal: Ability to identify factors that increase the pain will improve Outcome: Progressing Goal: Pain level will decrease Outcome: Progressing Problem: Lack of Knowledge: Goal: Verbalization of understanding the information provided will improve Outcome: Progressing Problem: Fluid Volume: Goal: Maintenance of adequate hydration will improve Outcome: Progressing Goal: Will show no signs and symptoms of electrolyte imbalance Outcome: Progressing Problem: Nutritional: Goal: Maintenance of adequate nutrition will improve Outcome: Progressing Problem: Sensory: Goal: Occurrences of nausea will decrease Outcome: Progressing Problem: Lack of Knowledge: Goal: Ability to state ways to decrease the risk of falls will improve Outcome: Progressing Problem: Safety: Goal: Will remain free from falls Outcome: Progressing Goal: Will remain free from injury from falls Outcome: Progressing Goal: Will remain free from falls and injury in home environment Outcome: Progressing Problem: Lack of Knowledge: Goal: Understanding of ways to prevent infection will improve Outcome: Progressing Problem: Skin Integrity: Goal: Will remain free from wound infection Description: World Health Organization (WHO) identifies hands as the main mode of germ transmissionin health care. Hand hygiene may be considered the most important measure performed to avoid transmission of germs and prevent health care associated infection. Outcome: Progressing Pt A&Ox4, resting in bed, pt reports pain of 3 on a 0-10 scale, pt up and ambulating to and from bathroom on own, pt did not want additional pain medication, pt states that getting some sleep tonight (04/15) is what he needs. Cosigned by Reshma Mello RN at 04/15/2021 9:52 PM DATA CENTER CONSULTANT CENTER CONSULTANT CENTER CONSULTANT * Hospital Course - Isela Moore NP - 04/15/2021 5:02 PM CST The patient was admitted on and taken to the operating room for a by . For full operative details, please dictated summary. The patient tolerated the procedure well and post operatively was admitted to the [facility] for further management. Diet was advanced as tolerated to . Pain was controlled on IV and oral medication. The patient was then discharge home on postoperative in stable condition, tolerating a diet, voiding spontaneously, ambulating well and with her pain controlled on oral pain medication. RAMO drain CENTER CONSULTANT * Plan of Care - Rainer Mixon RN - 04/15/2021 11:35 AM CST Problem: Health Behavior: Goal: Understanding of discharge needs will improve Outcome: Progressing Problem: Lack of Knowledge: Goal: Ability to develop a pain control plan will improve Outcome: Progressing Goal: Ability to identify pain intensity on a pain scale and rate it consistently will improve Outcome: Progressing Goal: Ability to notify healthcare provider of pain before it becomes unmanageable or unbearable will improve Outcome: Progressing Problem: Medication: Goal: Satisfaction with pain management regimen will improve Outcome: Progressing Problem: Sensory: Goal: Ability to identify factors that increase the pain will improve Outcome: Progressing Goal: Pain level will decrease Outcome: Progressing Problem: Lack of Knowledge: Goal: Verbalization of understanding the information provided will improve Outcome: Progressing Problem: Fluid Volume: Goal: Maintenance of adequate hydration will improve Outcome: Progressing Goal: Will show no signs and symptoms of electrolyte imbalance Outcome: Progressing Problem: Nutritional: Goal: Maintenance of adequate nutrition will improve Outcome: Progressing Problem: Sensory: Goal: Occurrences of nausea will decrease Outcome: Progressing Problem: Lack of Knowledge: Goal: Ability to state ways to decrease the risk of falls will improve Outcome: Progressing Problem: Safety: Goal: Will remain free from falls Outcome: Progressing Goal: Will remain free from injury from falls Outcome: Progressing Goal: Will remain free from falls and injury in home environment Outcome: Progressing Problem: Lack of Knowledge: Goal: Understanding of ways to prevent infection will improve Outcome: Progressing Problem: Skin Integrity: Goal: Will remain free from wound infection Description: World Health Organization (WHO) identifies hands as the main mode of germ transmissionin health care. Hand hygiene may be considered the most important measure performed to avoid transmission of germs and prevent health care associated infection. Outcome: Progressing Goals: Clinical Goals for the Shift: Vital signs stable, pain/nausea control, ambulation, fall prevention,elimination Summary: Patient interested in learning. Rainer Mixon RN 04/15/2021 11:35 AM CENTER CONSULTANT * Op Note - Ky Sheth MD - 04/13/2021 8:07 AM CST Images from the original note were not included. Operative Report SURGEON: Ky Sheth MD SURGICAL TEAM: Surgeon(s) and Role: * Ky Sheth MD - Primary * Mariia Ayon MD - Resident - Assisting DATE OF SURGERY : 04/13/2021 PREOPERATIVE DIAGNOSIS: Multiply recurrent, incarcerated incisional hernia POSTOPERATIVE DIAGNOSIS: Same PROCEDURE: 1. Myofascial advancement flap of the posterior rectus sheath and transversus abdominis muscle on the right 2. Myofascial advancement flap of the posterior rectus sheath and transversus abdominis muscle on the left 3. Repair of recurrent and incarcerated incisional hernia (29x13 cm) 4. Implantation of mesh (50x50 Ethicon Prolene soft mesh) 5. Removal of of previous mesh 6. Transversus abdominis plane block NOTE ON COMPLEXITY: Please note that this procedure was incredibly difficult in comparison to the traditional incisional hernia repair. This was due to the multiply recurrent nature, previous hernia repairs, previous mesh, significant adhesions and size of the defect. This required a significant increase in the amountof time and energy required to complete the repair and resulted in an increase blood loss during the procedure in comparison to traditional incisional hernia repairs. INDICATION FOR PROCEDURE: Kris Spence is a 61 y.o. male with a complex past surgical history including multiple previousabdominal operations stemming from Crohn's disease including total abdominal colectomy, ostomy and subsequent J-pouch creation. He has also had multiple previous hernia repairs with mesh along the last decade. He presents for evaluation of an enlarging and increasingly symptomatic recurrent hernia that requires manual reduction at time. Given the patients surgical history, the size and location of the defect it was felt he would be best served with an open repair. Risks/benefits/alternatives tosurgery were discussed with the patient and their family. The risks of the surgery discussed included but weren't limited to bleeding, infection, potential injury to surrounding structures and bowel,planned use of mesh, hernia recurrence and anesthesia associated complications. He was given the opportunity to ask any questions and they were all answered. He is in agreement with the plan. OPERATIVE FINDINGS: Patient had extensive adhesions of small bowel and remaining omentum to the anterior abdominal wallas well as to his old mesh. These were all taken down sharply. There is no clear evidence of bowel injury during adhesiolysis. Then given the size of the defect in his complex past surgical history we proceeded with bilateral myofascial advancement flaps of the post rectus sheath and transversus abdominis muscle. Despite his complex history we were able to mobilize these flaps out laterally once getting away from his previous mesh based repair especially along the patient's left side. This facilitated adequate mesh overlap as well as medialization of the abdominal musculature. After closure the posterior sheath we then reinforce the abdominal cavity with a 50 x 50 cm piece of Prolene soft mesh. This was trimmed to lay flat. We then closed the anterior fascia with interrupted [id number] PDS sutures. DESCRIPTION OF INCARCERATION: Please note that there were loops of small bowel that were incarcerated within the recurrent herniadefect, requiring careful dissection and mobilization to reduce the contents back into the abdomen to facilitate surgical repair. DESCRIPTION OF PROCEDURE: After obtaining written informed consent, the patient was brought to the operating room and placed on the table in the supine position. He received cefazolin for perioperative antibiotics. He received 5,000 units subcutaneous heparin and SCD's for perioperative DVT prophylaxis. After the induction of general endotracheal anesthesia a liz catheter was placed, and his abdomen was prepped and draped in the usual sterile fashion. We began by reopening his midline incision and dissecting down through the subcutaneous tissue until we encounter the remainder of the linea alba. This was then open sharply to enter the abdominal cavity. We encountered a significant amount of dense adhesions of omentum and small bowel to the anterior abdominal wall and old mesh. These were all taken down with sharp dissection and minimal electrocautery. During adhesiolysis we encountered no bowel injuries. Total adhesiolysis time was greater than 1 hour. After we were satisfied with all of the bowel work we placed a countable towel into the abdomen to protect the viscera and turned our attention to repairing the hernia defect. We measured the hernia defect to be 23 x 19 cm. We then attempted to bring the abdominal wall muscles back together and it was under significant tension. Given the large size of the hernia defect, its location and his previous surgical history in addition the increased abdominal tension we elected to proceed with bilateral myofascial advancement flaps of the posterior rectus sheath and transversus abdominis muscle in order to allow for adequate mesh overlap and midline medialization of the rectus muscles. We began on the patient's left side. After placing tim clamps on the medial edge of the rectus muscle, we began by incising the posterior rectus sheath just lateral to the linea-alba. This plane was continued out lateral towards the linea-semiluminaris and the neurovascular perforators to the rectus muscle which were identified and preserved. We then incised the posterior sheath and divided the transversus abdominis muscle to enter into an extraperitoneal plane. This was necessary to allow for adequate midline medialization of the rectus muscle and adequate mesh overlap. This was continuedout laterally towards the retroperitoneum, under the costal margin and down towards the pelvis. This was a incredibly difficult dissection given the patients surgical history, previous repairs and previous mesh. Ultimately we were able to complete the dissection out laterally. By the fascia it allowed us to achieve 23 x 10 cm of advancement from this side. However, it was still felt there was increased tension on the midline so we turned our attention to performing a similar release on the opposite side. After placing tim clamps on the medial edge of the rectus muscle, we began by incising the posterior rectus sheath just lateral to the linea-alba. This plane was continued out lateral towards the linea-semiluminaris and the neurovascular perforators to the rectus muscle which were identified andpreserved. We then incised the posterior sheath and divided the transversus abdominis muscle to enter into an extraperitoneal plane. Again, this was necessary to allow for adequate midline medialization of the rectus muscle and adequate mesh overlap. This was continued out laterally towards the retroperitoneum, under the costal margin and down towards the pelvis. This was a incredibly difficult dissection. Ultimately we were able to complete the dissection out laterally. By the fascia it allowed us to achieve 23 x 10 cm of advancement from this side. To complete the pelvic dissection, we were able pass a finger through the space of retzius, along the pubic symphysis to connect the pre-peritoneal dissection of the left and right side. The bladder complex was then freed from the overlying abdominal wall preserving the linea alba intact. This was also incredibly difficult given the fact that his previous midline incision was extended all the waydown to the pubis. This exposed below the pubic symphysis to allow for adequate inferior mesh overlap. For the cranial dissection the falciform ligament had been previously removed, but we were able to utilize the pre-peritoneal fat pad to establish a plane under the xiphoid bone. This was then connected with the left and right pre- peritoneal dissection that had been performed by dividing the posterior rectus sheath and transversus abdominis muscle. This was then continued cranially by freeing theperitoneum off the diaphragm to allow for adequate cranial overlap. Once we were satisfied with the area of dissection, we then turned our attention to closing the posterior rectus sheath in the midline. There were a few holes in the peritoneum and posterior sheath. The holes were closed with 2-0 & 3-0 vicryl sutures. We then performed a sponge, instrument, needle count that was correct. The posterior rectus sheath was then closed in the midline primarily after removing the countable towel. We then performed a transversus abdominis plane block by injection 60cc of 0.25% Marcaine divided between the left and right transversus abdominis muscle under direct visualization. We then placed a [id number] piece of Ethicon prolene soft mesh placed in a square fashion. This nicelycovered from the below the pubic symphysis to the xiphoid bone. There lateral edges of the mesh were trimmed to allow the mesh to lay flat. We then placed two 19 rwandan angelito drains to drain the space above the mesh. We then excised all the visible prior mesh from the abdominal cavity. There was some remaining mesh but it was densely ingrown into the musculature and I was worried that we would cause significant fascial damage to remove all of it. The anterior fascia was then closed with interrupted #1 PDS sutures. We excised his excess skin and hernia sac from the anterior abdominal wall. The subcutaneous tissue was then irrigated. We closed the subcutaneous tissue with interrupted 3-0 vicryl suture. Skin was closed with marga. A dry sterile dressing as then placed over the wound. Band-Aids were placed at the drain sites. ANESTHESIA: General Estimated Blood Loss: 200 mls Urine output : 250 mls Intraoperative Fluids: 3000 mls LR Blood/Blood Products Transfused: None Counts: Sponge, instrument and needle count was correct several times throughout the procedure. Specimens: * No specimens in log * Implants: Implant Name Type Inv. Item Serial No. Technical Program Manager Lot No. LRB No. Used Action ETHICON ENDO SURGERY [id number] SQUARE MESH SURGICAL PROLENE POLYPROPYLENE - SN/A - [id number] Mesh ETHICON ENDO SURGERY [id number] Square Mesh Surgical Prolene Polypropylene N/A Ethicon EndoSurgery [id number] N/A 1 Implanted Complications: None Condition on Discharge from the operating room was stable TEACHING ATTESTATION : I was present and directly participated in the entire procedure (including opening and closing). Date: 04/14/2021 Time: 6:04 AM Ky Sheth MD Minimally Invasive GI Surgery & Abdominal Wall Reconstruction bag bleacher [facility] [phone] CENTER CONSULTANT * Brief Op Note - Mariia Ayon MD - 04/13/2021 8:07 AM CST Operative Progress Note Surgical Team: Surgeon(s) and Role: * Ky Sheth MD - Primary * Mariia Ayon MD - Resident - Assisting Anesthesiologist: Anne Magaña MD General Worker: Shaan Bishop MD Maintenance Mechanic Engine: Ashanti Obregon RN Maintenance Mechanic Engine Relief: Binh Reynoso RN; Gill Travis RN Scrub Relief: Binh Reynoso RN Scrub: Cheryl Wright RN Maintenance Mechanic Engine Second: Binh Reynoso RN DATE OF SURGERY : 04/13/2021 Preoperative Diagnosis: Pre-op Diagnosis * Incisional hernia, without obstruction or gangrene [K43.2] Postoperative Diagnosis: Post-op Diagnosis * Incisional hernia, without obstruction or gangrene [K43.2] Procedure(s): Procedure(s) (LRB): Open repair of recurrent, incarcerated incisional hernia with mesh (N/A) Abdominal wall reconstruction (N/A) Removal of mesh (N/A) Operative Findings: Recurrent ventral hernia with multiple fascial defects. Part of previous mesh excised. Abdominal wall reconstruction with preperitoneal mesh. RAMO x 2 over the mesh (RUQ and LUQ) Estimated Blood Loss: 200 Intraoperative Fluids: 3000 mls Specimens: No specimen collected in procedure Implants: Implant Name Type Inv. Item Serial No. Technical Program Manager Lot No. [id number] No. Used Action ETHICON ENDO SURGERY [id number] SQUARE MESH SURGICAL PROLENE POLYPROPYLENE - SN/A - [id number] Mesh ETHICON ENDO SURGERY [id number] Square Mesh Surgical Prolene Polypropylene N/A Ethicon EndoSurgery [id number] N/A 1 Implanted Blood/Blood Products Transfused: None Complications: None Condition on Discharge from the operating room was stable Mariia Wolfe MD Date: 04/13/2021 Time: 12:57 PM TEACHING ATTESTATION : I was present and directly participated in the entire procedure (including opening and closing). Cosigned by Ky Sheth MD at 04/13/2021 1:54 PM DATA CENTER CONSULTANT CENTER CONSULTANT CENTER CONSULTANT documented in this encounter Plan of Treatment Not on file documented as of this encounter Procedures Procedure Name Priority Date/Time Associated Diagnosis Comments EGFR Routine 04/16/2021 9:45 PM DATA CENTER CONSULTANT PHOSPHORUS Routine 04/16/2021 9:45 PM DATA CENTER CONSULTANT MAGNESIUM Routine 04/16/2021 9:45 PM DATA CENTER CONSULTANT BASIC METABOLIC PANEL Routine 04/16/2021 9:45 PM DATA CENTER CONSULTANT EGFR Routine 04/15/2021 8:11 PM DATA CENTER CONSULTANT CBC WITHOUT DIFFERENTIAL Routine 04/15/2021 8:11 PM DATA CENTER CONSULTANT PHOSPHORUS Routine 04/15/2021 8:11 PM DATA CENTER CONSULTANT MAGNESIUM Routine 04/15/2021 8:11 PM DATA CENTER CONSULTANT BASIC METABOLIC PANEL Routine 04/15/2021 8:[address] CHEST PE W CONTRAST IP Routine 04/15/2021 11:57 AM DATA CENTER CONSULTANT ECG 12-LEAD STAT 04/15/2021 2:49 AM DATA CENTER CONSULTANT XR CHEST 1 VIEW ED Urgent/IP Urgent 04/15/2021 2:00 AM DATA CENTER CONSULTANT ARTERIAL BLOOD GAS W/LACTATE Routine 04/15/2021 1:58 AM DATA CENTER CONSULTANT TROPONIN I HIGH-SENSITIVITY STAT 04/15/2021 1:48 AM DATA CENTER CONSULTANT LACTATE STAT 04/15/2021 1:48 AM DATA CENTER CONSULTANT CBC WITHOUT DIFFERENTIAL Timed 04/14/2021 10:00 PM DATA CENTER CONSULTANT EGFR Routine 04/14/2021 8:50 PM DATA CENTER CONSULTANT PHOSPHORUS Routine 04/14/2021 8:50 PM DATA CENTER CONSULTANT MAGNESIUM Routine 04/14/2021 8:50 PM DATA CENTER CONSULTANT BASIC METABOLIC PANEL Routine 04/14/2021 8:50 PM DATA CENTER CONSULTANT EGFR Routine 04/13/2021 8:12 PM DATA CENTER CONSULTANT CBC WITHOUT DIFFERENTIAL Routine 04/13/2021 8:12 PM DATA CENTER CONSULTANT COMPREHENSIVE METABOLIC PANEL Routine 04/13/2021 8:12 PM DATA CENTER CONSULTANT REMOVAL OF MESH 04/13/2021 7:29 AM DATA CENTER CONSULTANT Incisional hernia, without obstruction or gangrene RECONSTRUCTION ABDOMINAL WALL 04/13/2021 7:29 AM DATA CENTER CONSULTANT Incisional hernia, without obstruction or gangrene REPAIR INCISIONAL HERNIA 04/13/2021 7:29 AM DATA CENTER CONSULTANT Incisional hernia, without obstruction or gangrene documented in this encounter Results * eGFR (04/16/2021 9:45 PM DATA CENTER CONSULTANT) eGFR >90 90 - 130 mL/min/1. 73 m2 [facility] Comment: Interpretive Data Reference Interval Normal ?>/= 90 mL/min/1.73m2 Mildly decreased* ? 60 - 89 mL/min/1.73m2 Mildly to moderately decreased ?45 - 59 mL/min/1.73m2 Moderately to severely decreased ??30 - 44 mL/min/1.73m2 Severely decreased ?15 - 29 mL/min/1.73m2 Kidney Failure ?< 15 ??mL/min/1.73m2 *Relative to young adult level Estimated glomerular filtration rate is determined by the 2020 CKD-EPI equation recommended by the National Kidney Foundation (A Unifying Approach to GFR Estimation: Recommendations of the NKF-ASK Task Force on Reassessing the Inclusion of Race in Diagnosing Kidney Disease, JASN 2020). The CKD-EPI equation should not be used for patients with unstable renal function and has not been validated in children and those over 70. Current interpretive data was last reviewed 2020. Blood 04/16/2021 9:45 PM DATA CENTER CONSULTANT 04/16/2021 10:43 PM DATA CENTER CONSULTANT us Polly Graf NP LAB BLOOD ORDERABLES Fin al Result [facility] Department [place] [address] * (ABNORMAL) Phosphorus (04/16/2021 9:45 PM DATA CENTER CONSULTANT) Pathologist [facility] Phosphorus, pl 2.2(L) 2.3 - 4.5 mg/dL [facility] Blood 04/16/2021 9:45 PM DATA CENTER CONSULTANT 04/16/2021 10:43 PM DATA CENTER CONSULTANT Polly Graf FRAME WIRER LAB BLOOD ORDERABLES Fin al Result Performing Organization Address City/[facility] de Phone Number [facility] [place] [address] * Magnesium (04/16/2021 9:45 PM DATA CENTER CONSULTANT) Pathologist [facility] Magnesium 1.9 1.4 - 2.5 mg/dL [facility] Blood 04/16/2021 9:45 PM DATA CENTER CONSULTANT 04/16/2021 10:43 PM DATA CENTER CONSULTANT Polly Graf FRAME WIRER LAB BLOOD ORDERABLES Fin al Result Performing Organization Address [facility] de Phone Number [facility] [place] [address] * (ABNORMAL) Basic metabolic panel (04/16/2021 9:45 PM DATA CENTER CONSULTANT) Pathologist [facility] Sodium 137 135 - 145 mmol/L [facility] Potassium, pl 3.3 3.3 - 4.9 mmol/L [facility] Chloride 96(L) 97 - 110 mmol/L [facility] CO2 32 22 - 32 mmol/L [facility] Anion gap 9 2 - 15 mmol/L [facility] BUN 14 8 - 25 mg/dL [facility] Creatinine 0.94 0.80 - 1.30 mg/dL [facility] Glucose 190 70 - 199 mg/dL [facility] Comment: Interpretive Data Fasting glucose >/= 126 mg/dl is diagnostic for diabetes. ?? Fasting is defined as no caloric intake for at least 8 hours. Fasting glucose between 100 mg/dl to 125 mg/dl is diagnostic of prediabetes. In a patient with classic symptoms of hyperglycemia or hyperglycemic crisis, a random glucose >/= 200 mg/dl is diagnostic for diabetes. In the absence of unequivocal hyperglycemia, results should be confirmed by repeat testing. The classification and Diagnosis of Diabetes Diabetes Care 2017;40 (Suppl. 1):S11. Current interpretive data was last revised 2016. Calcium 8.7 8.5 - 10.3 mg/dL [facility] Blood 04/16/2021 9:45 PM DATA CENTER CONSULTANT 04/16/2021 10:43 PM DATA CENTER CONSULTANT Polly Graf NP LAB BLOOD ORDERABLES Fin al Result [facility] Department [place] [address] * (ABNORMAL) eGFR (04/15/2021 8:11 PM DATA CENTER CONSULTANT) eGFR 87(L) 90 - 130 mL/min/1. 73 m2 [facility] Comment: Interpretive Data Reference Interval Normal ?>/= 90 mL/min/1.73m2 Mildly decreased* ? 60 - 89 mL/min/1.73m2 Mildly to moderately decreased ?45 - 59 mL/min/1.73m2 Moderately to severely decreased ??30 - 44 mL/min/1.73m2 Severely decreased ?15 - 29 mL/min/1.73m2 Kidney Failure ?< 15 ??mL/min/1.73m2 *Relative to young adult level Estimated glomerular filtration rate is determined by the 2020 CKD-EPI equation recommended by the National Kidney Foundation (A Unifying Approach to GFR Estimation: Recommendations of the NKF-ASK Task Force on Reassessing the Inclusion of Race in Diagnosing Kidney Disease, JASN 2020). The CKD-EPI equation should not be used for patients with unstable renal function and has not been validated in children and those over 70. Current interpretive data was last reviewed 2020. Blood 04/15/2021 8:11 PM DATA CENTER CONSULTANT 04/15/2021 8:25 PM DATA CENTER CONSULTANT Polly Graf FRAME WIRER LAB BLOOD ORDERABLES Fin al Result Performing Organization Address [facility] de Phone Number [facility] [place] [address] * Magnesium (04/15/2021 8:11 PM DATA CENTER CONSULTANT) [facility] Magnesium 2.0 1.4 - 2.5 mg/dL [facility] Blood 04/15/2021 8:11 PM DATA CENTER CONSULTANT 04/15/2021 8:25 PM DATA CENTER CONSULTANT Polly Graf FRAME WIRER LAB BLOOD ORDERABLES Fin al Result Performing Organization Address [facility] de Phone Number [facility] Department [place] [address] * (ABNORMAL) Phosphorus (04/15/2021 8:11 PM DATA CENTER CONSULTANT) [facility] Phosphorus, pl 1.5(L) 2.3 - 4.5 mg/dL [facility] Blood 04/15/2021 8:11 PM DATA CENTER CONSULTANT 04/15/2021 8:25 PM DATA CENTER CONSULTANT Polly Graf FRAME WIRER LAB BLOOD ORDERABLES Fin al Result Performing Organization Address [facility] [place] [address] * (ABNORMAL) Basic metabolic panel (04/15/2021 8:11 PM DATA CENTER CONSULTANT) Pathologist [facility] Sodium 134(L) 135 - 145 mmol/L [facility] Potassium, pl 3.2(L) 3.3 - 4.9 mmol/L [facility] Chloride 94(L) 97 - 110 mmol/L [facility] CO2 33(H) 22 - 32 mmol/L [facility] Anion gap 7 2 - 15 mmol/L [facility] BUN 12 8 - 25 mg/dL [facility] Creatinine 0.98 0.80 - 1.30 mg/dL [facility] Glucose 149 70 - 199 mg/dL [facility] Comment: Interpretive Data Fasting glucose >/= 126 mg/dl is diagnostic for diabetes. ?? Fasting is defined as no caloric intake for at least 8 hours. Fasting glucose between 100 mg/dl to 125 mg/dl is diagnostic of prediabetes. In a patient with classic symptoms of hyperglycemia or hyperglycemic crisis, a random glucose >/= 200 mg/dl is diagnostic for diabetes. In the absence of unequivocal hyperglycemia, results should be confirmed by repeat testing. The classification and Diagnosis of Diabetes Diabetes Care 2017;40 (Suppl. 1):S11. Current interpretive data was last revised 2016. Calcium 8.4(L) 8.5 - 10.3 mg/dL [facility] Blood 04/15/2021 8:11 PM DATA CENTER CONSULTANT 04/15/2021 8:25 PM DATA CENTER CONSULTANT us Polly Graf NP LAB BLOOD ORDERABLES Fin al Result [facility] Department [place] [address] * (ABNORMAL) CBC without differential (04/15/2021 8:11 PM DATA CENTER CONSULTANT) Pathologist [facility] WBC 9.5 3.8 - 9.9 K/cumm [facility] Hgb 11.4(L) 13.0 - 17.5 g/dL [facility] Hct 32.3(L) 38.9 - 50.3 % [facility] Plt 235 150 - 400 K/cumm [facility] MPV 9.8 9.1 - 12.3 fL [facility] RBC 3.57(L) 4.30 - 5.80 M/cumm [facility] MCV 90.5 81.3 - 96.4 fL [facility] MCH 31.9 27.1 - 33.3 pg [facility] MCHC 35.3 32.3 - 35.7 g/dL [facility] RDW CV 12.5 11.1 - 14.9 % [facility] RDW SD 41.1 35.7 - 48.1 fL [facility] NRBC abs 0.00 0.00 - 0.01 K/cumm [facility] Blood 04/15/2021 8:11 PM DATA CENTER CONSULTANT 04/15/2021 8:25 PM DATA CENTER CONSULTANT us Polly Graf NP LAB BLOOD ORDERABLES Fin al Result [facility] Department [place] [address] * CT Chest PE (CTA) W Contrast (04/15/2021 11:57 AM DATA CENTER CONSULTANT) Anatomical Region Laterality Modality Body N/A Computed Tomogra phy 04/15/2021 12:0 9 PM DATA CENTER CONSULTANT Impressions 04/15/2021 12:09 PM DATA CENTER CONSULTANT 1. No pulmonary embolism, although the evaluation is limited due to suboptimal opacification of the pulmonary arteries related to transient interruption of the contrast column. 2. Subsegmental atelectasis within both lower lobes, without focal pneumonic consolidation. 3. Partially imaged changes of recent laparotomy and hernia repair, with the upper abdominal drain, small volume free intraperitoneal and extraperitoneal gas, and trace pneumomediastinum. 4. Diffuse hepatic steatosis. Electronically signed by: Juan Manuel Curiel M.D. Narrative 04/15/2021 12:09 PM DATA CENTER CONSULTANT EXAMINATION: CT CHEST PE (CTA) W CONTRAST HISTORY: 61-year-old man with Crohn's disease status post proctocolectomy with J-pouch and recent repair of abdominal hernia. Concern for pulmonary embolism. TECHNIQUE: Computed tomographic images were acquired using a chest angiographic protocol optimized for pulmonary embolism. ??Contrast enhanced transaxial images were obtained following the intravenous administration of 96 ml of nonionic contrast. ??Multiplanar reformatted images and three-dimensional images were obtained on the 3-D workstation and sent to the PACS archival system. ?? COMPARISON: None FINDINGS: There is suboptimal opacification of the pulmonary arteries, which are less well-opacified compared to the pulmonary arteries, compatible with a manifestation of transient interruption of the contrast column. There is no central pulmonary embolism. Several of the segmental and essentially all of the subsegmental vessels are not well evaluated due to phase of contrast. CT imaging evidence of right heart strain: No. Heart is normal in size. No pericardial effusion. No mediastinal, axillary, or supraclavicular lymphadenopathy is identified. Thyroid enhances homogeneously. There is diffuse hepatic steatosis and partially imaged postsurgical changes of abdominal laparotomy with a surgical drain seen in the upper abdomen and a small amount of extraperitoneal with trace intraperitoneal gas. There is a small amount of new mediastinum and tracking which is compatible sequela of recent surgery. Unchanged low-attenuation lesion within the spleen. No focal pneumonic consolidation or pulmonary edema. There is subsegmental atelectasis involving both lower lobes. No suspicious nodule. No pulmonary edema. There is an unchanged calcified granuloma within the lingula. Central airways are widely patent. Bone windows demonstrate no suspicious osseous lesions. Procedure Note Juan Manuel Curiel MD - 04/15/2021 EXAMINATION: CT CHEST PE (CTA) W CONTRAST HISTORY: 61-year-old man with Crohn's disease status post proctocolectomy with J-pouch and recent repair of abdominal hernia. Concern for pulmonary embolism. TECHNIQUE: Computed tomographic images were acquired using a chest angiographic protocol optimized for pulmonary embolism. Contrast enhanced transaxial images were obtained following the intravenous administration of 96 ml of nonionic contrast. Multiplanar reformatted images and three-dimensional images were obtained on the 3-D workstation and sent to the PACS archival system. COMPARISON: None FINDINGS: There is suboptimal opacification of the pulmonary arteries, which are less well-opacified compared to the pulmonary arteries, compatible with a manifestation of transient interruption of the contrast column. There is no central pulmonary embolism. Several of the segmental and essentially all of the subsegmental vessels are not well evaluated due to phase of contrast. CT imaging evidence of right heart strain: No. Heart is normal in size. No pericardial effusion. No mediastinal, axillary, or supraclavicular lymphadenopathy is identified. Thyroid enhances homogeneously. There is diffuse hepatic steatosis and partially imaged postsurgical changes of abdominal laparotomy with a surgical drain seen in the upper abdomen and a small amount of extraperitoneal with trace intraperitoneal gas. There is a small amount of new mediastinum and tracking which is compatible sequela of recent surgery. Unchanged low-attenuation lesion within the spleen. No focal pneumonic consolidation or pulmonary edema. There is subsegmental atelectasis involving both lower lobes. No suspicious nodule. No pulmonary edema. There is an unchanged calcified granuloma within the lingula. Central airways are widely patent. Bone windows demonstrate no suspicious osseous lesions. IMPRESSION: 1. No pulmonary embolism, although the evaluation is limited due to suboptimal opacification of the pulmonary arteries related to transient interruption of the contrast column. 2. Subsegmental atelectasis within both lower lobes, without focal pneumonic consolidation. 3. Partially imaged changes of recent laparotomy and hernia repair, with the upper abdominal drain, small volume free intraperitoneal and extraperitoneal gas, and trace pneumomediastinum. 4. Diffuse hepatic steatosis. Electronically signed by: Juan Manuel Curiel M.D. Polly Graf NP IMG CT PROCEDURES Final Result * ECG 12 lead (04/15/2021 2:49 AM DATA CENTER CONSULTANT) Ventricular Rate EKG/Min 111 BPM [facility] Atrial Rate 111 BPM [facility] ND-Interval (MSEC) 134 ms [facility] QRS-Interval (MSEC) 88 ms [facility] QT-Interval (MSEC) 330 ms [facility] QTc 448 ms [facility] P [place] 28 degrees [facility] R [place] 12 degrees [facility] T [place] 30 degrees [facility] Diagnosis Sinus tachycardia Low voltage QRS Borderline ECG No previous ECGs available Confirmed by JEANA GUO M.D ([id number]) on 04/15/2021 3:09:17 PM [facility] 04/15/2021 2:49 AM DATA CENTER CONSULTANT 04/15/2021 3:09 PM DATA CENTER CONSULTANT Ky Sheth MD ECG ORDERABLES Final Re sult [facility] * XR Chest 1 View (04/15/2021 2:00 AM DATA CENTER CONSULTANT) Anatomical Region Laterality Modality Body, Chest N/A Computed Radiogr aphy 04/15/2021 6:41 AM DATA CENTER CONSULTANT Impressions 04/15/2021 6:41 AM DATA CENTER CONSULTANT There is streaky left greater than right midlung and basilar opacities which most likely represent partial atelectasis. No definite pleural effusion. No pneumothorax. Lung volumes are small. Heart and mediastinum are within normal limits for low volume technique. Electronically signed by: Carmine Syed M.D. Narrative 04/15/2021 6:41 AM DATA CENTER CONSULTANT EXAMINATION: 1 view chest radiograph COMPARISON: 02/12/2020 INDICATION: Sob Procedure Note Carmine Syed MD - 04/15/2021 EXAMINATION: 1 view chest radiograph COMPARISON: 02/12/2020 INDICATION: Sob IMPRESSION: There is streaky left greater than right midlung and basilar opacities which most likely represent partial atelectasis. No definite pleural effusion. No pneumothorax. Lung volumes are small. Heart and mediastinum are within normal limits for low volume technique. Electronically signed by: Carmine Syed M.D. Ky Sheth MD IMG XR PROCEDURES Final Result * (ABNORMAL) Arterial Blood gas w/Lactate POCT (04/15/2021 1:58 AM DATA CENTER CONSULTANT) Lactate POC i-STAT 1.8 0.7 - 2.2 mmol/L [facility] CENTER pH POC 7.52(H) 7.35 - 7.45 [facility] pCO2, Art POC 38 35 - 45 mmHg [facility] PO2 POC 27(C) 80 - 105 mmHg [facility] CO2, total POC 33(H) 20 - 30 mmol/L [facility] HCO3, POC 32(H) 21 - 30 mmol/L [facility] BE POC 9(H) -2 - 3 mmol/L [facility] O2 sat POC 59(L) 95 - 98 % [facility] Blood 04/15/2021 1:58 AM DATA CENTER CONSULTANT 04/15/2021 1:58 AM DATA CENTER CONSULTANT us Ky Sheth MD LAB BLOOD ORDERABLES Fin al Result Performing Organization Address [facility] de Phone Number [facility] [place] [address] * Lactate (04/15/2021 1:48 AM DATA CENTER CONSULTANT) [facility] Lactate 1.9 0.7 - 2.0 mmol/L [facility] Blood 04/15/2021 1:48 AM DATA CENTER CONSULTANT 04/15/2021 2:21 AM DATA CENTER CONSULTANT Ky Sheth MD LAB BLOOD ORDERABLES Fin al Result Performing Organization Address [facility] [place] [address] * Troponin I high-sensitivity (04/15/2021 1:48 AM DATA CENTER CONSULTANT) [facility] Trop I hs <4 <=35 ng/L [facility] Comment: Interpretive Data For further hscTnI resources including the diagnostic algorithm and an aid in interpretation, copy and paste this link: [email or web address] Current Interpretive Data last revised 2019. Blood 04/15/2021 1:48 AM DATA CENTER CONSULTANT 04/15/2021 2:21 AM DATA CENTER CONSULTANT Ky Sheth MD LAB BLOOD ORDERABLES Fin al Result Performing Organization Address [facility] de Phone Number [facility] [place] [address] * (ABNORMAL) CBC without differential (04/14/2021 10:00 PM DATA CENTER CONSULTANT) [facility] WBC 13.3(H) 3.8 - 9.9 K/cumm [facility] Hgb 12.4(L) 13.0 - 17.5 g/dL [facility] Hct 35.4(L) 38.9 - 50.3 % [facility] Plt 273 150 - 400 K/cumm [facility] MPV 10.1 9.1 - 12.3 fL [facility] RBC 3.90(L) 4.30 - 5.80 M/cumm [facility] MCV 90.8 81.3 - 96.4 fL [facility] MCH 31.8 27.1 - 33.3 pg [facility] MCHC 35.0 32.3 - 35.7 g/dL [facility] RDW CV 13.0 11.1 - 14.9 % [facility] RDW SD 42.6 35.7 - 48.1 fL [facility] NRBC abs 0.00 0.00 - 0.01 K/cumm [facility] Blood 04/14/2021 10:0 0 PM DATA CENTER CONSULTANT 04/14/2021 9:49 PM DATA CENTER CONSULTANT Ky Sheth MD LAB BLOOD ORDERABLES Fin al Result Performing Organization Address City/State/[facility] Co de Phone Number [facility] Department [place] [address] * (ABNORMAL) eGFR (04/14/2021 8:50 PM DATA CENTER CONSULTANT) eGFR 64(L) 90 - 130 mL/min/1. 73 m2 [facility] Comment: Interpretive Data Reference Interval Normal ?>/= 90 mL/min/1.73m2 Mildly decreased* ? 60 - 89 mL/min/1.73m2 Mildly to moderately decreased ?45 - 59 mL/min/1.73m2 Moderately to severely decreased ??30 - 44 mL/min/1.73m2 Severely decreased ?15 - 29 mL/min/1.73m2 Kidney Failure ?< 15 ??mL/min/1.73m2 *Relative to young adult level Estimated glomerular filtration rate is determined by the 2020 CKD-EPI equation recommended by the National Kidney Foundation (A Unifying Approach to GFR Estimation: Recommendations of the NKF-ASK Task Force on Reassessing the Inclusion of Race in Diagnosing Kidney Disease, JASN 2020). The CKD-EPI equation should not be used for patients with unstable renal function and has not been validated in children and those over 70. Current interpretive data was last reviewed 2020. Blood 04/14/2021 8:50 PM DATA CENTER CONSULTANT 04/14/2021 9:50 PM DATA CENTER CONSULTANT us Ky Sheth MD LAB BLOOD ORDERABLES Fin al Result [facility] Department [place] [address] * (ABNORMAL) Basic metabolic panel (04/14/2021 8:50 PM DATA CENTER CONSULTANT) [facility] Sodium 131(L) 135 - 145 mmol/L [facility] Potassium, pl 3.9 3.3 - 4.9 mmol/L [facility] Chloride 94(L) 97 - 110 mmol/L [facility] CO2 30 22 - 32 mmol/L [facility] Anion gap 7 2 - 15 mmol/L [facility] BUN 23 8 - 25 mg/dL [facility] Creatinine 1.27 0.80 - 1.30 mg/dL [facility] Glucose 163 70 - 199 mg/dL [facility] Comment: Interpretive Data Fasting glucose >/= 126 mg/dl is diagnostic for diabetes. ?? Fasting is defined as no caloric intake for at least 8 hours. Fasting glucose between 100 mg/dl to 125 mg/dl is diagnostic of prediabetes. In a patient with classic symptoms of hyperglycemia or hyperglycemic crisis, a random glucose >/= 200 mg/dl is diagnostic for diabetes. In the absence of unequivocal hyperglycemia, results should be confirmed by repeat testing. The classification and Diagnosis of Diabetes Diabetes Care 2017;40 (Suppl. 1):S11. Current interpretive data was last revised 2016. Calcium 8.3(L) 8.5 - 10.3 mg/dL [facility] Blood 04/14/2021 8:50 PM DATA CENTER CONSULTANT 04/14/2021 9:41 PM DATA CENTER CONSULTANT Ky Sheth MD LAB BLOOD ORDERABLES Fin al Result Performing Organization Address [facility] de Phone Number [facility] [place] [address] * (ABNORMAL) Phosphorus (04/14/2021 8:50 PM DATA CENTER CONSULTANT) Phosphorus, pl 1.7(L) 2.3 - 4.5 mg/dL [facility] Blood 04/14/2021 8:50 PM DATA CENTER CONSULTANT 04/14/2021 9:41 PM DATA CENTER CONSULTANT Polly Graf NP LAB BLOOD ORDERABLES Fin al Result Performing Organization Address [facility] de Phone Number [facility] Department [place] [address] * Magnesium (04/14/2021 8:50 PM DATA CENTER CONSULTANT) Pathologist [facility] Magnesium 1.6 1.4 - 2.5 mg/dL [facility] Blood 04/14/2021 8:50 PM DATA CENTER CONSULTANT 04/14/2021 9:41 PM DATA CENTER CONSULTANT Polly Graf NP LAB BLOOD ORDERABLES Fin al Result Performing Organization Address [facility] de Phone Number [facility] [place] [address] * (ABNORMAL) eGFR (04/13/2021 8:12 PM DATA CENTER CONSULTANT) eGFR 74(L) 90 - 130 mL/min/1. 73 m2 [facility] Comment: Interpretive Data Reference Interval Normal ?>/= 90 mL/min/1.73m2 Mildly decreased* ? 60 - 89 mL/min/1.73m2 Mildly to moderately decreased ?45 - 59 mL/min/1.73m2 Moderately to severely decreased ??30 - 44 mL/min/1.73m2 Severely decreased ?15 - 29 mL/min/1.73m2 Kidney Failure ?< 15 ??mL/min/1.73m2 *Relative to young adult level Estimated glomerular filtration rate is determined by the 2020 CKD-EPI equation recommended by the National Kidney Foundation (A Unifying Approach to GFR Estimation: Recommendations of the NKF-ASK Task Force on Reassessing the Inclusion of Race in Diagnosing Kidney Disease, JASN 2020). The CKD-EPI equation should not be used for patients with unstable renal function and has not been validated in children and those over 70. Current interpretive data was last reviewed 2020. Blood 04/13/2021 8:12 PM DATA CENTER CONSULTANT 04/13/2021 8:46 PM DATA CENTER CONSULTANT us Ky Sheth MD LAB BLOOD ORDERABLES Fin al Result Performing Organization Address City/State/[facility] Co de Phone Number [facility] Department [place] [address] * (ABNORMAL) Comprehensive metabolic panel (04/13/2021 8:12 PM DATA CENTER CONSULTANT) Sodium 138 135 - 145 mmol/L [facility] Potassium, pl 4.0 3.3 - 4.9 mmol/L [facility] Chloride 100 97 - 110 mmol/L [facility] CO2 27 22 - 32 mmol/L [facility] Anion gap 11 2 - 15 mmol/L [facility] BUN 16 8 - 25 mg/dL [facility] Creatinine 1.12 0.80 - 1.30 mg/dL [facility] Glucose 149 70 - 199 mg/dL [facility] Comment: Interpretive Data Fasting glucose >/= 126 mg/dl is diagnostic for diabetes. ?? Fasting is defined as no caloric intake for at least 8 hours. Fasting glucose between 100 mg/dl to 125 mg/dl is diagnostic of prediabetes. In a patient with classic symptoms of hyperglycemia or hyperglycemic crisis, a random glucose >/= 200 mg/dl is diagnostic for diabetes. In the absence of unequivocal hyperglycemia, results should be confirmed by repeat testing. The classification and Diagnosis of Diabetes Diabetes Care 2017;40 (Suppl. 1):S11. Current interpretive data was last revised 2016. Calcium 8.9 8.5 - 10.3 mg/dL [facility] Bilirubin, total 0.5 0.1 - 1.2 mg/dL [facility] Protein, pl 6.9 6.5 - 8.5 g/dL [facility] Albumin 4.2 3.5 - 5.0 g/dL [facility] Alk phos 51 40 - 130 Units/L [facility] ALT 60(H) 7 - 55 Units/L [facility] AST 55(H) 10 - 50 Units/L [facility] Blood 04/13/2021 8:12 PM DATA CENTER CONSULTANT 04/13/2021 8:46 PM DATA CENTER CONSULTANT Ky Sheth MD LAB BLOOD ORDERABLES Fin al Result [facility] Department [place] [address] * (ABNORMAL) CBC without differential (04/13/2021 8:12 PM DATA CENTER CONSULTANT) Pathologist [facility] WBC 15.8(H) 3.8 - 9.9 K/cumm [facility] Hgb 15.5 13.0 - 17.5 g/dL [facility] Hct 45.5 38.9 - 50.3 % [facility] Plt 261 150 - 400 K/cumm [facility] MPV 10.2 9.1 - 12.3 fL [facility] RBC 4.99 4.30 - 5.80 M/cumm [facility] MCV 91.2 81.3 - 96.4 fL [facility] MCH 31.1 27.1 - 33.3 pg [facility] MCHC 34.1 32.3 - 35.7 g/dL [facility] RDW CV 12.5 11.1 - 14.9 % [facility] RDW SD 41.4 35.7 - 48.1 fL [facility] NRBC abs 0.00 0.00 - 0.01 K/cumm [facility] Blood 04/13/2021 8:12 PM DATA CENTER CONSULTANT 04/13/2021 8:46 PM DATA CENTER CONSULTANT us Ky Sheth MD LAB BLOOD ORDERABLES Fin al Result [facility] Department [place] [address] documented in this encounter Visit Diagnoses Diagnosis Recurrent incisional hernia- Primary Incisional hernia, without obstruction or gangrene documented in this encounter Admitting Diagnoses Diagnosis Recurrent incisional hernia documented in this encounter Administered Medications Inactive Administered Medications - up to 3 most recent administrations Medication Order MAR Action Action Date Dose Rate Site acetaminophen (TYLENOL) tablet 1,000 mg 1,000 mg, oral, Every 6 hours scheduled, First dose (after last modification) on Tue04/14/21 at 1800 Given 04/17/2021 11:34 AM DATA CENTER CONSULTANT 1,000 mg Given 04/17/2021 5:49 AM DATA CENTER CONSULTANT 1,000 mg Given 04/16/2021 11:56 PM DATA CENTER CONSULTANT 1,000 mg allopurinoL (ZYLOPRIM) tablet 100 mg 100 mg, oral, 2 times daily, First dose on Tue04/14/21 at 1100 Given 04/17/2021 9:06 AM DATA CENTER CONSULTANT 100 mg Given 04/16/2021 9:36 PM DATA CENTER CONSULTANT 100 mg Given 04/16/2021 8:44 AM DATA CENTER CONSULTANT 100 mg bupivacaine (MARCAINE) 0.25 % (2.5 mg/mL) preservative free injection As needed, Starting on Tue04/13/21 at 1136, Intra-Op Given 04/13/2021 11:36 AM DATA CENTER CONSULTANT 60 mL Abdominal Tissue camphor-menthoL (SARNA) 0.5-0.5 % lotion topical, Every 2 hours PRN, itching, Starting on Tue04/14/21 at 1414, Apply to affected area: arm, leg, Laterality: Bilateral enoxaparin (LOVENOX) syringe 40 mg 40 mg, subcutaneous, Daily (for enoxaparin), First dose on Tue04/13/21 at 2100, Indications: Deep Vein Thrombosis PreventionIndications:Deep Vein Thrombosis Prevention Given 04/16/2021 9:35 PM DATA CENTER CONSULTANT 40 mg Left Upper Arm Given 04/15/2021 8:04 PM DATA CENTER CONSULTANT 40 mg Le ft Lower Abdomen Given 04/14/2021 8:46 PM DATA CENTER CONSULTANT 40 mg Le ft Lower Abdomen gabapentin (NEURONTIN) capsule 300 mg 300 mg, oral, 2 times daily, First dose (after last modification) on Tue04/15/21 at 1030, Do not crush, break, or open., Indications: Neuropathic PainIndications:Neuropathic Pain Given 04/17/2021 9:06 AM DATA CENTER CONSULTANT 300 mg Given 04/16/2021 9:36 PM DATA CENTER CONSULTANT 300 mg Given 04/16/2021 8:44 AM DATA CENTER CONSULTANT 300 mg HYDROmorphone (DILAUDID) injection 0.2 mg 0.2 mg, intravenous, Administer over 2 Minutes, Every 4 hours PRN, breakthrough pain, Starting on Tue04/15/21 at 0805 hydrOXYzine (ATARAX) tablet 25 mg 25 mg, oral, Every 6 hours PRN, anxiety, Starting on Tue04/15/21 at 1226 Given 04/16/2021 9:35 PM DATA CENTER CONSULTANT 25 mg Given 04/15/2021 8:05 PM DATA CENTER CONSULTANT 25 mg Given 04/15/2021 12:39 PM DATA CENTER CONSULTANT 25 mg lidocaine (LIDODERM) 5 % patch 1 patch 1 patch, transdermal, Administer over 12 Hours, Daily, First dose on Tue04/17/21 at 1015, Do not cover the holes on the top side of the patch., Apply to affected area: abdomen Medication Applied 04/17/2021 10:05 AM DATA CENTER CONSULTANT 1 patch Other (Comment) loperamide (IMODIUM) capsule 2 mg 2 mg, oral, 3 times daily PRN, diarrhea, Starting on Tue04/16/21 at 0808, Maximum recommended dose 16 mg/day Given 04/16/2021 12:33 PM DATA CENTER CONSULTANT 2 mg ondansetron (ZOFRAN) injection 4 mg 4 mg, intravenous, Administer over 2 Minutes, Every 6 hours PRN, nausea, vomiting, if not tolerating PO, Starting on Tue04/13/21 at 1306, Indications: Nausea and VomitingIndications:Nausea and Vomiting ondansetron ODT (ZOFRAN-ODT) disintegrating tablet 4 mg 4 mg, oral, Every 6 hours PRN, nausea, vomiting, Starting on Tue04/13/21 at 1306, Indications: Nausea and VomitingIndications:Nausea and Vomiting Given 04/13/2021 6:32 PM DATA CENTER CONSULTANT 4 mg oxyCODONE (ROXICODONE) tablet 5 mg 5 mg, oral, Every 4 hours PRN, 2nd line for pain, Starting on Tue04/15/21 at 0804, Indications: PainIndications:Pain Given 04/17/2021 10:05 AM DATA CENTER CONSULTANT 5 mg Given 04/16/2021 9:35 PM DATA CENTER CONSULTANT [address] (PROTONIX) extended release tablet 40 mg 40 mg, oral, Daily, First dose on Tue04/14/21 at 0900, Do not crush, chew, cut, dissolve, open or otherwise manipulate tablet/capsule., Indications: Stress Ulcer ProphylaxisIndications:Stress Ulcer Prophylaxis Given 04/17/2021 9:06 AM DATA CENTER CONSULTANT 40 mg Given 04/16/2021 9:47 AM DATA CENTER CONSULTANT 40 mg Given 04/15/2021 8:35 AM DATA CENTER CONSULTANT 40 mg potassium, sodium phosphates (PHOS-NAK) 280-160-250 mg packet 2 packet 2 packet, oral, 3 times daily before meals, First dose on Tue04/16/21 at 0730, Each packet contains elemental phosphorus 250 mg (8 mmol), potassium 280 mg (7.1 mEq), and sodium 160 mg (6.9 mEq). Given 04/17/2021 11:34 AM DATA CENTER CONSULTANT 2 packet s Given 04/17/2021 5:49 AM DATA CENTER CONSULTANT 2 packets Given 04/16/2021 5:18 PM DATA CENTER CONSULTANT 2 packets ramelteon (ROZEREM) tablet 8 mg 8 mg, oral, Nightly PRN, sleep, Starting on Tue04/15/21 at 1228, Indications: Sleep-Onset InsomniaIndications:Sleep-Onset Insomnia Given 04/16/2021 9:35 PM DATA CENTER CONSULTANT 8 m g Given 04/15/2021 8:05 PM DATA CENTER CONSULTANT 8 mg sodium chloride 0.9% flush 0.5-20 mL 0.5-20 mL, intra-catheter, Every 8 hours scheduled, First dose on Tue04/13/21 at 2200, Flush volume based on line type and size. Given 04/17/2021 6:06 AM DATA CENTER CONSULTANT 10 mL Given 04/16/2021 9:37 PM DATA CENTER CONSULTANT 10 mL Given 04/16/2021 2:15 PM DATA CENTER CONSULTANT 10 mL sodium chloride 0.9% flush 0.5-20 mL 0.5-20 mL, intra-catheter, As needed, line care, Starting on Tue04/13/21 at 1715, Flush volume based on line type and size. Flush before and after each use. Given 04/17/2021 9:06 AM DATA CENTER CONSULTANT 10 mL Given 04/16/2021 5:17 PM DATA CENTER CONSULTANT 10 mL Given 04/15/2021 8:41 AM DATA CENTER CONSULTANT 10 mL sodium chloride 0.9% irrigation As needed, Starting on Tue04/13/21 at 0818, Intra-Op Given 04/13/2021 11:36 AM DATA CENTER CONSULTANT 1,000 mL Surgical Site Given 04/13/2021 8:18 AM DATA CENTER CONSULTANT 1,000 mL [place] rgical Site sterile water irrigation As needed, Starting on Tue04/13/21 at 1136, Intra-Op Given 04/13/2021 11:36 AM DATA CENTER CONSULTANT 1,000 mL Other (Comment) sulfaSALAzine (AZULFIDINE) tablet 1,000 mg 1,000 mg, oral, 3 times daily, First dose on Tue04/16/21 at 0900, Indications: Crohn's Disease, arthralgiaIndications:Crohn's Disease,arthralgia Given 04/17/2021 9:06 AM DATA CENTER CONSULTANT 1,000 mg Given 04/16/2021 9:35 PM DATA CENTER CONSULTANT 1,000 mg Given 04/16/2021 5:17 PM DATA CENTER CONSULTANT 1,000 mg documented in this encounter Discontinued Medications Medication Sig Discontinue Reason Start Date End Da te acetaminophen (TYLENOL ORAL) Take 1 Dose by mouth as needed Stop Taking at Discharge 04/17/2021 documented as of this encounter Active and Recently Administered Medications Times are shown in DATA CENTER CONSULTANT. Scheduled Medication Order 04/15/2021 04/16/2021 04/17/2021 acetaminophen (TYLENOL) tablet 1,000 mg 1,000 mg, oral, Every 6 hours scheduled, First dose (after last modification) on Tue04/14/21 at 1800 0509 (Given - Provider: Bina Roper)1211 (Given - Provider: Rainer Mixon RN)1802 (Given - Provider: Rainer Mixon RN)2313 (Given - Provider: Bina Roper) 0536 (Given - Provider: Bina Roper)1128 (Given - Provider: Rainer Mixon RN)1718 (Given - Provider: Rainer Mixon RN)2356 (Given - Provider: Ashley Valenzuela, HONG) 0549 (Given - Provider: Ashley Valenzuela RN)1134 (Given - Provider: Rainer Mixon RN) allopurinoL (ZYLOPRIM) tablet 100 mg 100 mg, oral, 2 times daily, First dose on Tue04/14/21 at 1100 0835 (Given - Provider: Shayna Vicente)2004 (Given - Provider: Bina Roper) 0844 (Given - Provider: Rainer Mixon RN)2135 (Given - Provider: Ashley Valenzuela RN) 09 (Given - Provider: Rainer Mixon RN) enoxaparin (LOVENOX) syringe 40 mg 40 mg, subcutaneous, Daily (for enoxaparin), First dose on Tue04/13/21 at 2100, Indications: Deep Vein Thrombosis Prevention 2003 (Given - Provider: Bina Roper) 2134 (Given - Provider: Ashley Valenzuela RN) gabapentin (NEURONTIN) capsule 300 mg 300 mg, oral, 2 times daily, First dose (after last modification) on Tue04/15/21 at 1030, Do not crush, break, or open., Indications: Neuropathic Pain 1030 (Not Given - Provider: Rainer Mixon RN - Reason: NPO)1211 (Given - Provider: Rainer Mixon RN - Comment: Patient was NPO)2004 (Given - Provider: Bina Roper) 0844 (Given - Provider: Rainer Mixon RN)2135 (Given - Provider: Ashley Valenzuela RN) 09 (Given - Provider: Rainer Mixon RN) lidocaine (LIDODERM) 5 % patch 1 patch 1 patch, transdermal, Administer over 12 Hours, Daily, First dose on Tue04/17/21 at 1015, Do not cover the holes on the top side of the patch., Apply to affected area: abdomen 1005 (Medication Applied - Provider: Rainer Mixon RN - Comment: abdomen)1244 (Due: Medication Removed - Provider: Automatic Discharge Provider - Comment: Time automatically adjusted from order being discontinued) magnesium sulfate 2 g/50 mL in water (premix) 2 g (COMPLETED) 2 g, intravenous, Administer over 60 Minutes, Once, On Tue04/17/21 at 0600, For 1 dose, Indications: hypomagnesemia 0549 (New Bag - Provider: Ashley Valenzuela RN) magnesium sulfate 4 g/100 mL in water (premix) 4 g (COMPLETED) 4 g, intravenous, Administer over 90 Minutes, Once, On Tue04/15/21 at 0215, For 1 dose 0255 (New Bag - Provider: Reshma Mello RN) pantoprazole DR (PROTONIX) extended release tablet 40 mg 40 mg, oral, Daily, First dose on Tue04/14/21 at 0900, Do not crush, chew, cut, dissolve, open or otherwise manipulate tablet/capsule., Indications: Stress Ulcer Prophylaxis 0835 (Given - Provider: Shayna Vicente) 0947 (Given - Provider: Rainer Mixon RN) 0906 (Given - Provider: Rainer Mixon RN) potassium chloride (KLOR-CON) packet 40 mEq (COMPLETED) 40 mEq, feeding tube, Once, On Tue04/16/21 at 0215, For 1 dose, Dissolve one packet in at least 120 mL of cold water or other beverage prior to administration. 0348 (Given - Provider: Bina Roper) potassium chloride (KLOR-CON) packet 40 mEq (COMPLETED) 40 mEq, feeding tube, Every 4 hours, First dose on Tue04/17/21 at 0600, For 2 doses, Total dose = 80 mEq. Recommend to dilute each 15 mL with at least 6 ounces of water or juice prior to administration. Dissolve one packet in at least 120 mL of cold water or other beverage prior to administration. 0549 (Given - Provider: Ashley Valenzuela RN)0906 (Given - Provider: Rainer Mixon RN) potassium, sodium phosphates (PHOS-NAK) 280-160-250 mg packet 2 packet 2 packet, oral, 3 times daily before meals, First dose on Tue04/16/21 at 0730, Each packet contains elemental phosphorus 250 mg (8 mmol), potassium 280 mg (7.1 mEq), and sodium 160 mg (6.9 mEq). 0843 (Given - Provider: Rainer Mixon RN)1128 (Given - Provider: Rainer Mixon RN)1718 (Given - Provider: Rainer Mixon RN) 0549 (Given - Provider: Ashley Valenzuela RN)1134 (Given - Provider: Rainer Mixon RN) sodium chloride 0.9% flush 0.5-20 mL 0.5-20 mL, intra-catheter, Every 8 hours scheduled, First dose on Tue04/13/21 at 2200, Flush volume based on line type and size. 0520 (Not Given - Provider: Reshma Mello RN - Reason: IV Infusing)1449 (Not Given - Provider: Rainer Mixon RN - Reason: IV Infusing)2144 (Not Given - Provider: Reshma Mello RN - Reason: IV Infusing) 0540 (Not Given - Provider: Reshma Mello RN - Reason: Other)1415 (Given - Provider: Rainer Mixon RN)2137 (Given - Provider: Ashley Valenzuela RN) 0606 (Given - Provider: Ashley Valenzuela RN) sodium phosphate - potassium phosphate (K-PHOS NEUTRAL) tablet 500 mg (COMPLETED) 500 mg, oral, 2 times daily with meals (bkfst, dinner), First dose on Tue04/15/21 at 0800, For 2 doses, Each tablet contains elemental phosphorus 250 mg (8 mmol), potassium 45 mg (1.1 mEq), and sodium 298 mg (13 mEq). 0835 (Given - Provider: Shayna Vicente)1803 (Given - Provider: Rainer Mixon, HONG) sulfaSALAzine (AZULFIDINE) tablet 1,000 mg 1,000 mg, oral, 3 times daily, First dose on Tue04/16/21 at 0900, Indications: Crohn's Disease, arthralgia 0947 (Given - Provider: Rainer Mixon RN)1717 (Given - Provider: Rainer Mixon RN)2134 (Given - Provider: Ashley Valenzuela, HONG) 09 (Given - Provider: Rainer Mixon RN) Continuous Medication Order 04/15/2021 04/16/2021 04/17/2021 dextrose 5% and sodium chloride 0.45% infusion (premix) (CANCELED) 75 mL/hr, intravenous, Continuous, Starting on Tue04/14/21 at 0700 1047 (New Bag - Provider: Rainer Mixon RN)1919 (Stopped - Provider: Rainer Mixon RN) PRN Medication Order 04/15/2021 04/16/2021 04/17/2021 camphor-menthoL (SARNA) 0.5-0.5 % lotion topical, Every 2 hours PRN, itching, Starting on Tue04/14/21 at 1414, Apply to affected area: arm, leg, Laterality: Bilateral HYDROmorphone (DILAUDID) injection 0.2 mg 0.2 mg, intravenous, Administer over 2 Minutes, Every 4 hours PRN, breakthrough pain, Starting on Tue04/15/21 at 0805 hydrOXYzine (ATARAX) tablet 25 mg 25 mg, oral, Every 6 hours PRN, anxiety, Starting on Tue04/15/21 at 1226 1239 (Given - Provider: Rainer Mixon RN)2004 (Given - Provider: Bina Roper) 2134 (Given - Provider: Ashley Valenzuela RN) ioversoL (OPTIRAY 350) syringe syringe 100 mL (COMPLETED) 100 mL, intravenous, Once in imaging, contrast, Starting on Tue04/15/21 at 1148, For 1 dose 1157 (Contrast Given - Provider: Claudia Lama, RT) loperamide (IMODIUM) capsule 2 mg 2 mg, oral, 3 times daily PRN, diarrhea, Starting on Tue04/16/21 at 0808, Maximum recommended dose 16 mg/day 1233 (Given - Provider: Rainer Mixon RN) ondansetron (ZOFRAN) injection 4 mg(Linked Group 1) 4 mg, intravenous, Administer over 2 Minutes, Every 6 hours PRN, nausea, vomiting, if not tolerating PO, Starting on Tue04/13/21 at 1306, Indications: Nausea and Vomiting ondansetron ODT (ZOFRAN-ODT) disintegrating tablet 4 mg(Linked Group 1) 4 mg, oral, Every 6 hours PRN, nausea, vomiting, Starting on Tue04/13/21 at 1306, Indications: Nausea and Vomiting oxyCODONE (ROXICODONE) tablet 5 mg 5 mg, oral, Every 4 hours PRN, 2nd line for pain, Starting on Tue04/15/21 at 0804, Indications: Pain 213 (Given - Provider: Ashley Valenzuela RN) 1005 (Given - Provider: Rainer Mixon, HONG) ramelteon (ROZEREM) tablet 8 mg 8 mg, oral, Nightly PRN, sleep, Starting on Tue04/15/21 at 1228, Indications: Sleep-Onset Insomnia 2004 (Given - Provider: Bina Roper) 2135 (Given - Provider: Ashley Valenzuela RN) sodium chloride 0.9% flush 0.5-20 mL 0.5-20 mL, intra-catheter, As needed, line care, Starting on Tue04/13/21 at 1715, Flush volume based on line type and size. Flush before and after each use. 0839 (Given - Provider: Shayna Vicente)0840 (Given - Provider: Shayna Vicente)0841 (Given - Provider: Shayna Vicente) 1717 (Given - Provider: Rainer Mixon, HONG) 0906 (Given - Provider: Rainer Mixon, HONG) Linked Groups Order Group 1: ondansetron ODT (ZOFRAN-ODT) disintegrating tablet 4 mgJump to med 4 mg, oral, Every 6 hours PRN, nausea, vomiting, Starting on Tue04/13/21 at 1306, Indications: Nausea and Vomiting Or ondansetron (ZOFRAN) injection 4 mgJump to med 4 mg, intravenous, Administer over 2 Minutes, Every 6 hours PRN, nausea, vomiting, if not tolerating PO, Starting on 3/7/22 at 1306, Indications: Nausea and Vomiting documented in this encounter Orders Medications Ordered That Po ht Not Have Been Administered Count Last Ordered Date First Ordered Date lidocaine (LIDODERM) 5 % patch 1 patch 1 magnesium sulfate 2 g/50 mL in water (premix) 2 g 1 04/17/2021 potassium chloride (KLOR-CON ) packet 40 mEq 2 04/17/2021 04/16/2021 loperamide (IMODIUM) capsule 2 mg 1 022 potassium, sodium phosphates (PHOS-NAK) 280-160-250 mg packet 2 packet 1 04/16/2021 sulfaSALAzine (AZULFIDINE) tablet 1,000 mg 1 04/16/2021 gabapentin (NEURONTIN) capsule 300 mg 3 10/202104/14/2021 HYDROmorphone (DILAUDID) injection 0.2 mg 2 04/15/2021 04/13/2021 hydrOXYzine (ATARAX) tablet 25 mg 1 ioversoL (OPTIRAY 350) syrin ge syringe 100 mL 1 04/15/2021 magnesium sulfate 4 g/100 mL in water (premix) 4 g 1 04/15/2021 oxyCODONE (ROXICODONE) tablet 5 mg 1 2021 ramelteon (ROZEREM) tablet 8 mg 1 sodium phosphate - potassium phosphate (K-PHOS NEUTRAL) tablet 500 mg 1 04/15/2021 acetaminophen (TYLENOL) tablet 1,000 mg 4 0 04/14/2021 04/13/2021 allopurinoL (ZYLOPRIM) tablet 100 mg 1 09/2021 camphor-menthoL (SARNA) 0.5-0.5 % lotion 1 04/14/2021 dextrose 5% and sodium chlor arlin 0.45% infusion (premix) 1 04/14/2021 diphenhydrAMINE (BENADRYL) i njection 12.5 mg 1 04/14/2021 lidocaine (LIDODERM) 5 % patch [address] (PROTONIX) e xtended release tablet 40 mg 1 04/14/2021 ceFAZolin (ANCEF) 2,000 mg/2 0 mL in sterile water (premix) 2,000 mg 2 04/13/2021 enoxaparin (LOVENOX) syringe 40 mg 1 2021 fentaNYL (SUBLIMAZE) preserv ative free injection 50 mcg 2 04/13/2021 haloperidol (HALDOL) injection 1 mg 1 04/13 heparin 5,000 unit/mL inject ion 5,000 Units 1 04/13/2021 HYDROmorphone (DILAUDID) injection 0.4 mg 1 04/13/2021 HYDROmorphone in 0.9% sodium chloride (DILAUDID) 20 mg/100 mL (0.2 mg/mL) cassette (premix) 1 04/13/2021 Lactated Ringer's (LR) infusion 2 naloxegoL (MOVANTIK) tablet 25 mg 1 022 naloxone (NARCAN) 0.4 mg/mL injection 0.04-0.4 mg 2 04/13/2021 ondansetron (ZOFRAN) injection 4 mg 2 04/13 ondansetron ODT (ZOFRAN-ODT) disintegrating tablet 4 mg 1 04/13/2021 sodium chloride 0.9% flush 0.5-20 mL 3 08/2021 Diet Count Last Ordered Date First Orde red Date ADULT DISCHARGE DIET 1 04/17/2021 Nursing Count Last Ordered Date First Orde red Date DISCHARGE ACTIVITY 4 04/17/2021 DISCHARGE CALL PROVIDER 6 04/17/2021 DISCHARGE DRESSING 7 04/17/2021 FLUID RESTRICTION 1 04/15/2021 LIZ CATHETER - DISCONTINUE 1 04/14/2021 documented in this encounter Care Teams Media Buyer Relationship Specialty Start Date End Date Mike Mitchell MD PCP - General Family Practice 01/16/21 documented as of this encounter
--- OUTSIDE RECORDS SUMMARY | 2024-01-30 08:18 | XMS_ITS | Encounter Summary ---
Author Organization [facility] Address [address] [place] [address] Phone Care Team Providers Care Wheel Molder Name Role Phone Mike Mitchell MD Primary Care Provider [phone] Encounter Details Date Type Department Care Team (Late st Contact Info) Description 03/13/2021 Telephone [facility] - [facility] Minimally Invasive Surgery [address] [place] [address] [address] [place], [place] [address] Vilma Medina, HONG Social History Tobacco Use Types Packs/Day Years [...] on file Legal Sex Male 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 Nuzhat - Can we make that work? Jacob ----- Message ----- From: Julia Moreno MD Sent: 01/19/2021 7:47 AM WASHERY ENGINEER To: Ky Sheth MD, # It would be best to time around week 6 of 8 of the IFX infusion. His next dose is scheduled 03/02 which would put his next dose in mid April (6 weeks would be around April 13.) ----- Message ----- From: Ky Sheth MD Sent: 01/17/2021 7:27 AM WASHERY ENGINEER To: Julia Moreno MD, # I just wanted to check in on timing for his remicade around surgery. We don't have a date, but can coordinate with his infusions. Will likely be Mar time frame. Jacob Rice ERY ENGINEER documented in this encounter Plan of Treatment Not on file documented as of this encounter Visit Diagnoses Not on filedocumented in this encounter Care Teams Wheel Molder Relationship Specialty Start Date End Date Mike Mitchell MD PCP - General Family Practice 01/16/21 documented as of this encounter
--- OUTSIDE RECORDS SUMMARY | 2024-01-30 08:18 | XMS_ITS | Encounter Summary ---
Author Organization [facility] Healthcare Address [address] [place] [address] Care Team Providers Care Industrial Psychology Professor Name Role Phone Mike Mitchell MD Primary Care Provider [phone] Encounter Details Date Type Department Care Team (Late st Contact Info) Description 03/17/2021 11:40 AM POWERHOUSE MECHANIC APPRENTICE Lab [facility] [address] [place] [address] Preoperative testing Social History Tobacco Use Types Packs/Day Years [...] on file Legal Sex Male 8:42 AM POWERHOUSE MECHANIC APPRENTICE Gender Identity Not on file Sexual Orientation Straight 04/01/2020 8: 42 PM POWERHOUSE MECHANIC APPRENTICE documented as of this encounter Plan of Treatment Not on file documented as of this encounter Procedures Procedure Name Priority Date/Time Associated Diagnosis Comments EGFR Routine 03/17/2021 11:47 AM POWERHOUSE MECHANIC APPRENTICE Preoperative testing CBC WITHOUT DIFFERENTIAL Routine 03/17/2021 11:47 AM POWERHOUSE MECHANIC APPRENTICE Preoperative testing BASIC METABOLIC PANEL Routine 03/17/2021 11:47 AM POWERHOUSE MECHANIC APPRENTICE Preoperative testing documented in this encounter Results * eGFR (03/17/2021 11:47 AM POWERHOUSE MECHANIC APPRENTICE) eGFR 72 mL/min/1. 73 m2 [facility] Comment: Interpretive Data Reference Interval Normal ?>/= [...] interpretive data was last reviewed 2020. Blood 03/17/2021 11:4 7 AM POWERHOUSE MECHANIC APPRENTICE 03/17/2021 12:03 PM POWERHOUSE MECHANIC APPRENTICE us Yvette Kruse NP LAB BLOOD ORDERABLES Final Result [facility] [id number] [facility]. [place] [address] * Basic metabolic panel (03/17/2021 11:47 AM POWERHOUSE MECHANIC APPRENTICE) Pathologist [facility] Sodium 138 135 - 145 mmol/L [facility] Potassium, pl 3.7 3.3 - 4.9 mmol/L [facility] Chloride 98 97 - 110 mmol/L [facility] CO2 26 22 - 32 mmol/L [facility] Anion gap 14 2 - 15 mmol/L [facility] BUN 20 8 - 25 mg/dL [facility] Creatinine 1.15 0.80 - 1.30 mg/dL [facility] Glucose 136 70 - 199 mg/dL [facility] Comment: Interpretive Data Fasting glucose >/= 126 [...] interpretive data was last revised 2016. Calcium 10.0 8.5 - 10.3 mg/dL [facility] Blood 03/17/2021 11:4 7 AM POWERHOUSE MECHANIC APPRENTICE 03/17/2021 12:03 PM POWERHOUSE MECHANIC APPRENTICE Yvette Kruse JEWELRY MECHANIC LAB BLOOD ORDERABLES Final Result [facility] [id number] [facility]. Department of Laboratories [place], [place] [id number] * CBC without differential (03/17/2021 11:47 AM POWERHOUSE MECHANIC APPRENTICE) Pathologist [facility] WBC 7.5 3.8 - 9.9 K/cumm [facility] Hgb 16.1 13.0 - 17.5 g/dL [facility] Hct 45.4 38.9 - 50.3 % [facility] Plt 247 150 - 400 K/cumm [facility] MPV 9.7 9.1 - 12.3 fL [facility] RBC 5.05 4.30 - 5.80 M/cumm [facility] MCV 89.9 81.3 - 96.4 fL [facility] MCH 31.9 27.1 - 33.3 pg [facility] MCHC 35.5 32.3 - 35.7 g/dL [facility] CV 13.2 11.1 - 14.9 % [facility] SD 42.6 35.7 - 48.1 fL [facility] NRBC abs 0.00 0.00 - 0.01 K/cumm [facility] Blood 03/17/2021 11:4 7 AM POWERHOUSE MECHANIC APPRENTICE 03/17/2021 12:03 PM POWERHOUSE MECHANIC APPRENTICE us Yvette Kruse NP LAB BLOOD ORDERABLES Final Result [facility] [id number] [facility]. [place] [address] documented in this encounter Visit Diagnoses Diagnosis Preoperative testing Unspecified pre-operative examination documented in this encounter Care Teams Industrial Psychology Professor Relationship Specialty Start Date End Date Mike Mitchell MD PCP - General Family Practice 01/16/21 documented as of this encounter
--- OUTSIDE RECORDS SUMMARY | 2024-01-30 08:18 | XMS_ITS | Encounter Summary ---
Author Organization [facility] Healthcare Address [address] [facility] [place] [address] Care Team Providers Care Banquet Food Server Name Role Phone Mike Mitchell MD Primary Care Provider [phone] Encounter Details Date Type Department Care Team (Latest Contact Info) Description 04/13/2021 5:14 AM OUTSOLE HANDLER - 04/17/2021 12:44 PM OUTSOLE HANDLER Hospital Encounter [facility] [address] [place] [address] Ky Sheth MD [address] [place] [address] Discharge Disposition: Discharge to home or self [...] on file Legal Sex Male 8:42 AM OUTSOLE HANDLER Gender Identity Not on file Sexual Orientation Straight 04/01/2020 8: 42 PM OUTSOLE HANDLER documented as of this encounter Last Filed Vital Signs Vital Sign Reading Time Taken Comments Blood Pressure 120/85 04/17/2021 11:50 AM OUTSOLE HANDLER Pulse 91 04/17/2021 11:50 AM OUTSOLE HANDLER Temperature 37.1 ??C (98.8 ??F) 04/17/2021 11:[address] Respiratory Rate 13 04/17/2021 11:50 AM OUTSOLE HANDLER Oxygen Saturation 96% 04/17/2021 11:50 AM OUTSOLE HANDLER Inhaled Oxygen Concentration - - Weight 117.9 kg (260 lb) 04/13/2021 5:15 PM OUTSOLE HANDLER Height 182.9 cm (6') 04/13/2021 5:15 PM OUTSOLE HANDLER Body Mass Index 35.26 04/13/2021 5:15 PM OUTSOLE HANDLER documented in this encounter Discharge Diagnoses Diagnosis Incisional hernia with obstruction, without gangrene - INCISIONAL HERNIA WITH OBSTRUCTION, WITHOUT GANGRENE Acute posthemorrhagic anemia - ACUTE POSTHEMORRHAGIC ANEMIA Crohn's disease of small intestine with rectal bleeding (CMS/HCC) (HCC) - CROHN'S DISEASE OF SMALL INTESTINE WITH RECTAL BLEEDING Other disorders of phosphorus metabolism - OTHER DISORDERS OF PHOSPHORUS METABOLISM Hypomagnesemia - HYPOMAGNESEMIA Disorders of magnesium metabolism Hypokalemia - HYPOKALEMIA Hypopotassemia Essential (primary) hypertension - ESSENTIAL (PRIMARY) HYPERTENSION Unspecified essential hypertension Peritoneal adhesions (postprocedural) (postinfection) - PERITONEAL ADHESIONS (POSTPROCEDURAL) (POSTINFECTION) Obesity, unspecified - OBESITY, UNSPECIFIED Body mass index (BMI) 35.0-35.9, adult - BODY MASS INDEX [BMI] 35.0-35.9, ADULT Gastro-esophageal reflux disease without esophagitis - GASTRO-ESOPHAGEAL REFLUX DISEASE WITHOUT ESOPHAGITIS Personal history of urinary calculi - PERSONAL HISTORY OF URINARY CALCULI documented in this encounter Discharge Summaries * Polly Graf, DEPARTMENTAL SHIPPING CLERK - 04/17/2021 12:16 PM CST Inpatient Discharge Summary BRIEF OVERVIEW Admitting Provider: Ky Sheth MD Discharge Provider: Ky Sheth MD Primary Care Physician at Discharge: Mike Mitchell MD [phone] Admission Date: 04/13/2021 Discharge Date: 04/17/2021 Primary [...] incision open to air Discharge Wound Type: Stitches/[place] -Stitches/marga will be removed at your next [...] total) by mouth daily Commonly known as: PRINIVCELSAZESTRIL What changed: when to take this loperamide [...] CR tablet Generic drug: potassium chloride ER kslnbszlwlel-lfxrgzcw-crhhwp tablet sildenafiL (pulm.hypertension) 20 mg tablet Commonly known as: REVATIO testosterone cypionate 200 mg/mL injection Commonly known as: DEPO-TESTOTERONE UNABLE TO FIND vitamin b complex tablet Outpatient Follow-Up: Future Appointments Date Time Provider Department Center 04/28/2021 9:00 AM IM INFUSION 8, CAM 5C INF CAM 5C [facility] INF / INJ 05/08/2021 9:45 AM Ky Sheth MD MIS CAM 12B [facility] 08/27/2021 10:00 AM Julia Moreno MD GI CAM 12B [facility] GASTRO Cosigned by Ky Sheth MD at 04/17/2021 3:01 PM OUTSOLE HANDLER OLE HANDLER OLE HANDLER documented in this encounter Medications at Time [...] discharge needs arise, please contact the covering case maker. OLE HANDLER * Gayle Armstrong MD - 04/17/2021 12:43 PM CST [facility]imally [facility]vasive [facility] Daily Progress Note SUBJECTIVE: [...] Ky Sheth MD at 04/17/2021 3:02 PM OUTSOLE HANDLER OLE HANDLER OLE HANDLER OLE HANDLER Associated attestation - Ky Sheth MD - 04/17/2021 3:02 PM OUTSOLE HANDLER I have seen and examined the patient on 04/17/21. I agree with the findings and plan of care as documented in the resident's/fellow's note.. * Gayle Armstrong MD - 04/16/2021 5:59 AM CST [facility] Minimally [facility]vasive Surgery Daily Progress Note SUBJECTIVE: Overnight Events: No acute events overnight Interval History: Patient remains stable. S/p open AWR 3. He is feeling better, slept well, ambulating [...] Ky Sheth MD at 04/16/2021 5:10 PM OUTSOLE HANDLER OLE HANDLER OLE HANDLER Associated attestation - Ky Sheth MD - 04/16/2021 5:10 PM OUTSOLE HANDLER I have seen and examined the patient on 04/16/21. I agree with the findings and plan of care as documented in the resident's/fellow's note.. * Gayle Armstrong MD - 04/15/2021 7:05 AM CST [facility] Minimally [facility]vasive Surgery Daily Progress Note SUBJECTIVE: [...] is well controlled on current regimen. dc COMMUNICATIONS BILLING ANALYST. Transition to p.o. pain regimen CV - [...] Ky Sheth MD at 04/15/2021 4:16 PM OUTSOLE HANDLER OLE HANDLER OLE HANDLER Associated attestation - Ky Sheth MD - 04/15/2021 4:16 PM OUTSOLE HANDLER I have seen and examined the patient on 04/15/21. I agree with the findings and plan of care as documented in the resident's/fellow's note.. * Britta Hancock, OT - 04/14/2021 11:18 AM CST Occupational [...] baseline Prior Function Prior Function Level of Morton: Independent with ADLs, Independent functional transfers, Needs [...] name and address after me: Ankur Pan [address] [place] [address] Without looking at the clock, tell me [...] Occupational Therapy) Active Problems Not on file OLE HANDLER * Meghann Claros RN - 04/14/2021 10:42 AM CST CM Initial Assessment Interview Note Information Obtained From: Patient (04/14/211031) Admission Source: from home Impression: 61 year old awr Plan Includes: return home with spouse, no need for hh or dme Primary Source of Transportation: car/ Health Insurance Coverage: [employer] Prescription Coverage: yes [place] [facility] Care Provider: Mike Mitchell MD Prior to Admission: Primary Caregiver: Self Support System: Spouse/Significant Other Support system contact info (name, phone, availablity): yaz [phone] Home Care Services: No Durable Medical Equipment: [...] Collaboration with patient, MD, direct care nurse, Rat Exterminator, Nurse Coordinator and other members of the health care team to assure needed interventions completed. 2. Return patient to optimal level of self-care post discharge. 3. It Security Administrator will follow for Discharge Planning - interventions [...] in agreement with the aftercare plan. Meghann Claros RN OLE HANDLER * Delia Xie DPT - 04/14/2021 9:34 [...] setting Prior Function Prior Function Level of [place]: Independent functional transfers, Independent with ambulation (without [...] Physical Therapy) Active Problems Not on file OLE HANDLER * Gayle Armstrong MD - 04/14/2021 5:52 AM CST [facility]ally [facility]vasive Surgery Daily Progress Note SUBJECTIVE: [...] % Max: 98 % Vitals: 04/13/21 1930 04/13/21 2030 04/13/21 2320 04/14/21 0300 BP: 129/78 128/75 136/82 124/83 BP Location: Right arm Right arm Right arm Right arm Patient Position: Pulse: 96 98 97 98 Resp: 14 14 20 18 Temp: 36.6 ??C (97.9 ??F) 36.6 ??C [...] is well controlled on current regimen. Continue COMMUNICATIONS BILLING ANALYST CV - Remains hemodynamically stable. Continue monitoring, [...] Ky Sheth MD at 04/15/2021 6:04 AM OUTSOLE HANDLER OLE HANDLER OLE HANDLER Associated attestation - Ky Sheth MD - 04/15/2021 6:04 AM OUTSOLE HANDLER I have seen and examined the patient on 04/14/2021. I agree with the findings and plan of care as documented in the resident's/fellow's note.. * Mariia Ayon MD - 04/13/2021 5:45 PM CST Post Op Check Note Kris Spence [id number] Pt returns from the OR 04/13/2021 s/p Open repair of recurrent, incarcerated incisional hernia with mesh, Abdominal wall reconstruction, Removal of mesh by Ky Sheth MD for Pre-op Diagnosis * Incisional hernia, without obstruction or gangrene [K43.2] Pain:controlled Nausea: No Urine output adequate: Yes Diet: Dietary Orders (From admission, onward) Start Ordered 04/13/216 NPO Diet Diet effective now 04/13/21 1715 Physical Exam: Vitals: 04/13/21 1730 BP: 113/84 Pulse: 98 Resp: 16 Temp: 36.6 ??C (97.9 ??F) SpO2: 94% Constitutional: alert and oriented x3 and no acute distress Abdomen soft, appropriately tender, RAMO drains with SS output Incision/Dressing is clean, dry, intact Assessment and Plan Doing well. Continue current management. NPO, sips with meds COMMUNICATIONS BILLING ANALYST Binder Mariia Wolfe MD OLE HANDLER * Celestino Ruiz MD - 04/13/2021 4:56 [...] pulses 2+ bilaterally PLAN: Neuro/Pain: Sandra Tyl, COMMUNICATIONS BILLING ANALYST CV: POD1 - resume appropriate antihypertensives/ cardioactive [...] Lovenox Celestino Ruiz MD PGY-1 General Surgery OLE HANDLER OLE HANDLER documented in this encounter H&P Notes * Ky Sheth MD - 04/13/2021 5:59 AM CST I have reviewed the H&P, examined the patient, and endorse the findings as written. Plan of Care : Based on the above findings, I consider Kris Spence to be an acceptable risk for : Procedure(s): OPEN REPAIR INCISIONAL HERNIA OPEN RECONSTRUCTION ABDOMINAL WALL OLE HANDLER Source Note - Shea Limon, DEPARTMENTAL SHIPPING CLERK - 03/17/2021 8:36 AM OUTSOLE HANDLER Images from the original note were not included. Center for Preoperative Assessment and Planning Preoperative Evaluation Record Evaluation type/location: CPAP [facility] Planned procedure site: [facility] OR (Pod 1) Date: 03/17/21 Anesthesia [...] BP - 80 Pertinent negatives: CAD ; NV ; CABG ; valvular heart disease; valve [...] The antibody type is Anti E. Per Farrah in blood bank, anticipated cross-match difficulty is not difficult. Based on this information, we will initiate the following blood plan for the day of surgery: Type and screen only. For day of surgery blood bank specimen availability, the plan is that the patient will need to return with 14 days of surgery for a 14-day T&S specimen. Pt returned to [facility] on 04/02 for 14 day T&S. [...] COVID19 testing to be performed on 04/09. [facility] will place the order for testing. Result [...] for pt to confirm appt date at [facility]). (T&S plan previously discussed with CPAP attending, [...] for pt to confirm appt date at [facility]). (T&S plan previously discussed with CPAP attending, [...] to crossmatch) but thereis anticipated availability at [facility] blood bank. Based on this information, we [...] reconstruction ??? CYSTOSCOPY W/ LASER LITHOTRIPSY Right 2017 ??? HEMANGIOMA EXCISION 2016 liver ??? POUCHOSCOPY 11/14/2020 ??? RESTORATIVE PROCTOCOLECTOMY 2003 J-pouch ??? VENTRAL HERNIA REPAIR 06/2009, 07/2009 Allergies Allergen Reactions ??? Fruit Extracts Hives Tomatoes and oranges ??? Iron Rash ??? Talent Juice Hives ??? Talent Oil Hives ??? Sulfa (Sulfonamide Antibiotics) Hives and Rash ??? Tomato Hives ??? Sulfur Unknown Cerner Allergy Text Annotation: Sulfur ??? Azathioprine Other (See comments) pancreatitis Taking? Last Dose Start Date End Date Provider allopurinoL (ZYLOPRIM) 100 mg tablet 11/29/19 -- Amie Odonnell MD chlorthalidone 25 mg tablet 11/20/19 -- [...] mg/mL solution -- -- Amie Odonnell MD diigimhydpvc-ssvgpohm-wkkohs tablet -- -- Amie Odonnell MD sildenafiL, pulm.hypertension, (REVATIO) 20 mg tablet 07/23/13 -- Amie Odonnell MD sulfaSALAzine (AZULFIDINE) 500 mg tablet 02/19/21 -- Julia Moreno MD Take 2 tablets up to three times a day as needed testosterone cypionate (DEPO-TESTOTERONE) 200 mg/mL injection 10/07/20 -- Amie Odonnell MD UNABLE TO FIND -- -- Amie Odonnell MD UNABLE TO FIND -- -- Provider, MD Amie Current Outpatient Medications: ??? allopurinoL (ZYLOPRIM) 100 [...] ??? loperamide (IMODIUM) 0.133 mg/mL solution ??? eqccbuhcyizj-xmfaifvd-djpuxg tablet ??? sildenafiL, pulm.hypertension, (REVATIO) 20 mg [...] last 720 hours. STOP-Bang Total Score: 5 OLE HANDLER OLE HANDLER OLE HANDLER OLE HANDLER OLE HANDLER documented in this encounter Procedure Notes * Polly Graf NP - 04/17/2021 12:16 PM CST Procedures Abdominal RAMO drains x 2 draining serosanguinous fluid, sites without erythema or drainage. Superficial bruising noted along incision and inferiorly. RAMO drains removed intact, dressing applied. Patient tolerated well. Instructions given. OLE HANDLER documented in this encounter Nursing Notes * [...] oxygen. Will continue to monitor patient closely. OLE HANDLER * Reshma Mello RN - 04/14/2021 10:01 [...] with movement. Plan of care discussed with patient/manufacturers service representative, including as it relates to Principal Problem: Recurrent incisional hernia Patient progressing. Clinical goals for the shift pain control, ambulation. Education provided includes Fall Prevention, Modified Diet/Oral Supplements and Pain Management. Patient and/or manufacturers service representative Verbalizes understanding. Will continue to monitor. OLE HANDLER * Shanell Gunter RN - 04/14/2021 5:45 [...] today's shift. Plan of care discussed with patient/manufacturers service representative, including as it relates to Principal Problem: Recurrent incisional hernia Patient progressing. Clinical goals for the shift walk in halls three times for today's shift, paincontrol, tolerating diet. Education provided includes Discharge Planning, Fall Prevention, Pain Management and Self-Care: ADLs. Patient and/or manufacturers service representative Verbalizes understanding. Will continue to monitor. OLE HANDLER * Reshma Mello RN - 04/13/2021 10:54 [...] in flowsheets.Patient states pain is a 6/10, COMMUNICATIONS BILLING ANALYST in use. Plan of care discussed with patient/manufacturers service representative, including as it relates to Principal Problem: Recurrent incisional hernia Patient progressing. Clinical goals for the shift ambulation, monitor I/Os, pain control. Educationprovided includes Fall Prevention and Skin Breakdown Prevention/Treatment. Patient and/or manufacturers service representative Verbalizes understanding. Will continue to monitor. OLE HANDLER * Shanell Gunter RN - 04/13/2021 5:15 PM CST Patient admitted [facility] from POD 1 PACU via bed, accompanied by OR transporter. Covering service notified. Patient presents post operatively of open repair of recurrent, incarcerated incision herniawith mesh, abdominal wall reconstruction, removal of mesh. Orders reviewed & will continue to monitor. Patient and/or manufacturers service representative oriented to environment, equipment, and informed of the following as found in admission booklet: patient rights & responsibilities, visitor policy, hand and respiratory hygiene practice. Other education includes: Discharge Planning, Fall Prevention, Pain Managementand Self-Care: ADLs. Patient and/or manufacturers service representative Verbalizes understanding. OLE HANDLER documented in this encounter Miscellaneous Notes * [...] Indicators/Treatments: Patient has a history of Anemia 3/ Open repair of recurrent incisional hernia Estimated [...] Sincerely, Clinical Documentation Integrity Christiane Foster RN, CDIP,CCDS [email or web address] OLE HANDLER * Provider Query - Christiane Hernándze - 04/17/2021 12:28 PM CST Specify a [...] Sincerely, Clinical Documentation Integrity Christiane Foster RN, CDIP,CCDS [email or web address] OLE HANDLER * Plan of Care - Rainer Mixon RN - 04/17/2021 10:15 AM CST Problem: Health Behavior: Goal: Understanding of discharge needs will improve 04/17/20211014 by Rainer Mixon RN Outcome: Completed 04/17/20211014 by Rainer Mixon RN Outcome: Completed Problem: Lack of Knowledge: Goal: Ability to develop a pain control plan will improve 04/17/20215 by Rainer Mixon RN Outcome: Completed 04/17/20211014 by Rainer Mixon RN Outcome: Completed Goal: Ability to identify pain intensity on a pain scale and rate it consistently will improve 04/17/20211014 by Rainer Mixon RN Outcome: Completed 04/17/20211014 by Rainer Mixon RN Outcome: Completed Goal: Ability to notify healthcare provider of pain before it becomes unmanageable or unbearable will improve 04/17/20215 by Rainer Mixon RN Outcome: Completed 04/17/20215 by Rainer Mixon RN Outcome: Completed Problem: Medication: Goal: Satisfaction with pain management regimen will improve 04/17/20215 by Rainer Mixon RN Outcome: Completed 04/17/20215 by Rainer Mixon RN Outcome: Completed Problem: Sensory: Goal: Ability to identify factors that increase the pain will improve 04/17/20215 by Rainer Mixon RN Outcome: Completed 04/17/20211014 by Rainer Mixon RN Outcome: Completed Goal: Pain level will decrease 04/17/2021 1015 by Rainer Mixon RN Outcome: Completed 04/17/20211014 by Rainer Mixon RN Outcome: Completed Problem: Lack of Knowledge: Goal: Verbalization of understanding the information provided will improve 04/17/2021 1015 by Rainer Mixon RN Outcome: Completed 04/17/2021 1015 by Rainer Mixon RN Outcome: Completed Problem: Fluid Volume: Goal: Maintenance of adequate hydration will improve 04/17/2021 1015 by Rainer Mixon RN Outcome: Completed 04/17/2021 1015 by Rainer Mixon RN Outcome: Completed Goal: [...] discharge. Rainer Mixon RN 04/17/2021 10:15 AM OLE HANDLER * Plan of Care - Ashley Valenzuela [...] my shift. Hourly rounds have been completed. OLE HANDLER * Plan of Care - Rainer Mixon [...] learning. Rainer Mixon RN 04/16/2021 11:57 AM OLE HANDLER * Plan of Care - Sybil Squires RN - 04/16/2021 9:40 AM CST Pt is post op incisional hernia repair. Had BM, plan to adv diet. Anticipate discharge home tomorrow. Pt's drains to be removed prior to discharge. No discharge needs identified at this time. CM willcontinue to follow. OLE HANDLER * Plan of Care - Bina Roper [...] pt states that getting some sleep tonight (3/9) is what he needs. Cosigned by Reshma Mello RN at 04/15/2021 9:52 PM OUTSOLE HANDLER OLE HANDLER OLE HANDLER * Hospital Course - Isela Moore NP [...] controlled on oral pain medication. RAMO drain OLE HANDLER * Plan of Care - Rainer Mixon [...] learning. Rainer Mixon RN 04/15/2021 11:35 AM OLE HANDLER * Op Note - Ky Sheth MD [...] then closed the anterior fascia with interrupted uvhlfx-qw-kuppm PDS sutures. DESCRIPTION OF INCARCERATION: Please note [...] under direct visualization. We then placed a [id number] piece of Ethicon prolene soft mesh placed in a square fashion. This nicelycovered from the below the pubic symphysis to the xiphoid bone. There lateral edges of the mesh were trimmed to allow the mesh to lay flat. We then placed two 19 persian angelito drains to drain the space above [...] Implant Name Type Inv. Item Serial No. Internet Marketing Analyst Lot No. LRB No. Used Action [employer] [id number] SQUARE MESH SURGICAL PROLENE POLYPROPYLENE - SN/A - [id number] Mesh [employer] [id number] Square Mesh Surgical Prolene Polypropylene N/A [employer] [id number] N/A 1 Implanted Complications: None Condition on Discharge from the operating room was stable TEACHING ATTESTATION : I was present and directly participated in the entire procedure (including opening and closing). Date: 04/14/2021 Time: 6:04 AM Ky Sheth MD Minimally Invasive GI Surgery & Abdominal Wall Reconstruction electroformer [employer] [facility] [employer] [phone] OLE HANDLER * Brief Op Note - Mariia yAon MD - 04/13/2021 8:07 AM CST Operative Progress Note Surgical Team: Surgeon(s) and Role: * Ky Sheth MD - Primary * Mariia Ayon MD - Resident - Assisting Anesthesiologist: Anne Magaña MD Bariatric Nurse: Shaan Bishop MD Car Wash Attendant Automatic: Ashanti Obregon RN Car Wash Attendant Automatic Relief: Binh Reynoso RN; Gill Travis RN Scrub Relief: Binh Reynoso RN Scrub: Gabbi Bo, Cheryl Aguirre RN Car Wash Attendant Automatic Second: Binh Reynoso RN DATE OF SURGERY [...] Implant Name Type Inv. Item Serial No. Internet Marketing Analyst Lot No. LRB No. Used Action [employer] [id number] SQUARE MESH SURGICAL PROLENE POLYPROPYLENE - SN/A - [id number] Mesh [employer] [id number] Square Mesh Surgical Prolene Polypropylene N/A [employer] [id number] N/A 1 Implanted Blood/Blood Products Transfused: None Complications: None Condition on Discharge from the operating room was stable Mariia Wolfe MD Date: 04/13/2021 Time: 12:57 PM TEACHING ATTESTATION : I was present and directly participated in the entire procedure (including opening and closing). Cosigned by Ky Sheth MD at 04/13/2021 1:54 PM OUTSOLE HANDLER OLE HANDLER OLE HANDLER documented in this encounter Plan of Treatment Not on file documented as of this encounter Procedures Procedure Name Priority Date/Time Associated Diagnosis Comments EGFR Routine 04/16/2021 9:45 PM OUTSOLE HANDLER PHOSPHORUS Routine 04/16/2021 9:45 PM OUTSOLE HANDLER MAGNESIUM Routine 04/16/2021 9:45 PM OUTSOLE HANDLER BASIC METABOLIC PANEL Routine 04/16/2021 9:45 PM OUTSOLE HANDLER EGFR Routine 04/15/2021 8:11 PM OUTSOLE HANDLER CBC WITHOUT DIFFERENTIAL Routine 04/15/2021 8:11 PM OUTSOLE HANDLER PHOSPHORUS Routine 04/15/2021 8:11 PM OUTSOLE HANDLER MAGNESIUM Routine 04/15/2021 8:11 PM OUTSOLE HANDLER BASIC METABOLIC PANEL Routine 04/15/2021 8:[address] CHEST PE W CONTRAST IP Routine 04/15/2021 11:57 AM OUTSOLE HANDLER ECG 12-LEAD STAT 04/15/2021 2:49 AM OUTSOLE HANDLER XR CHEST 1 VIEW ED Urgent/IP Urgent 04/15/2021 2:00 AM OUTSOLE HANDLER ARTERIAL BLOOD GAS W/LACTATE Routine 04/15/2021 1:58 AM OUTSOLE HANDLER TROPONIN I HIGH-SENSITIVITY STAT 04/15/2021 1:48 AM OUTSOLE HANDLER LACTATE STAT 04/15/2021 1:48 AM OUTSOLE HANDLER CBC WITHOUT DIFFERENTIAL Timed 04/14/2021 10:00 PM OUTSOLE HANDLER EGFR Routine 04/14/2021 8:50 PM OUTSOLE HANDLER PHOSPHORUS Routine 04/14/2021 8:50 PM OUTSOLE HANDLER MAGNESIUM Routine 04/14/2021 8:50 PM OUTSOLE HANDLER BASIC METABOLIC PANEL Routine 04/14/2021 8:50 PM OUTSOLE HANDLER EGFR Routine 04/13/2021 8:12 PM OUTSOLE HANDLER CBC WITHOUT DIFFERENTIAL Routine 04/13/2021 8:12 PM OUTSOLE HANDLER COMPREHENSIVE METABOLIC PANEL Routine 04/13/2021 8:12 PM OUTSOLE HANDLER REMOVAL OF MESH 04/13/2021 7:29 AM OUTSOLE HANDLER Incisional hernia, without obstruction or gangrene RECONSTRUCTION ABDOMINAL WALL 04/13/2021 7:29 AM OUTSOLE HANDLER Incisional hernia, without obstruction or gangrene REPAIR INCISIONAL HERNIA 04/13/2021 7:29 AM OUTSOLE HANDLER Incisional hernia, without obstruction or gangrene documented in this encounter Results * eGFR (04/16/2021 9:45 PM OUTSOLE HANDLER) eGFR >90 90 - 130 mL/min/1. 73 [...] last reviewed 2020. Blood 04/16/2021 9:45 PM OUTSOLE HANDLER 04/16/2021 10:43 PM OUTSOLE HANDLER Polly Graf DEPARTMENTAL SHIPPING CLERK LAB BLOOD ORDERABLES Fin al Result Performing Organization Address City/[facility]/ZIP Co de Phone Number [facility] [place] [address] * (ABNORMAL) Phosphorus (04/16/2021 9:45 PM OUTSOLE HANDLER) Pathologist [facility] Phosphorus, pl 2.2(L) 2.3 - 4.5 mg/dL [facility] Blood 04/16/2021 9:45 PM OUTSOLE HANDLER 04/16/2021 10:43 PM OUTSOLE HANDLER Polly Graf DEPARTMENTAL SHIPPING CLERK LAB BLOOD ORDERABLES Fin al Result Performing Organization Address [facility] Co de Phone Number [facility] [place] [address] * Magnesium (04/16/2021 9:45 PM OUTSOLE HANDLER) [facility] Magnesium 1.9 1.4 - 2.5 mg/dL [facility] Blood 04/16/2021 9:45 PM OUTSOLE HANDLER 04/16/2021 10:43 PM OUTSOLE HANDLER Polly Graf DEPARTMENTAL SHIPPING CLERK LAB BLOOD ORDERABLES Fin al Result Performing Organization Address City/[facility]/ZIP Co de Phone Number [facility] [place] [address] * (ABNORMAL) Basic metabolic panel (04/16/2021 9:45 PM OUTSOLE HANDLER) Pathologist [facility] Sodium 137 135 - 145 mmol/L [facility] Potassium, pl 3.3 3.3 - 4.9 mmol/L [facility] Chloride 96(L) 97 - 110 mmol/L [facility] CO2 32 22 - 32 mmol/L [facility] Anion gap 9 2 - 15 mmol/L [facility] BUN 14 8 - 25 mg/dL [facility] Creatinine 0.94 0.80 - 1.30 mg/dL [facility] Glucose 190 70 - 199 mg/dL [facility] Comment: Interpretive Data Fasting glucose >/= 126 [...] 2016. Calcium 8.7 8.5 - 10.3 mg/dL [facility] Blood 04/16/2021 9:45 PM OUTSOLE HANDLER 04/16/2021 10:43 PM OUTSOLE HANDLER Polly Graf DEPARTMENTAL SHIPPING CLERK LAB BLOOD ORDERABLES Fin al Result [facility] [place] [address] * (ABNORMAL) eGFR (04/15/2021 8:11 PM OUTSOLE HANDLER) eGFR 87(L) 90 - 130 mL/min/1. 73 m2 [facility] Comment: Interpretive Data Reference Interval Normal ?>/= [...] last reviewed 2020. Blood 04/15/2021 8:11 PM OUTSOLE HANDLER 04/15/2021 8:25 PM OUTSOLE HANDLER Polly Graf NP LAB BLOOD ORDERABLES Fin al Result Performing Organization Address [facility] de Phone Number [facility] Department [place] [address] * Magnesium (04/15/2021 8:11 PM OUTSOLE HANDLER) Magnesium 2.0 1.4 - 2.5 mg/dL [facility] Blood 04/15/2021 8:11 PM OUTSOLE HANDLER 04/15/2021 8:25 PM OUTSOLE HANDLER Polly Graf NP LAB BLOOD ORDERABLES Fin al Result Performing Organization Address [facility] de Phone Number [facility] Department [place] [address] * (ABNORMAL) Phosphorus (04/15/2021 8:11 PM OUTSOLE HANDLER) Phosphorus, pl 1.5(L) 2.3 - 4.5 mg/dL [facility] Blood 04/15/2021 8:11 PM OUTSOLE HANDLER 04/15/2021 8:25 PM OUTSOLE HANDLER Polly Graf NP LAB BLOOD ORDERABLES Fin al Result Performing Organization Address City/[facility] Co de Phone Number [facility] [place] [address] * (ABNORMAL) Basic metabolic panel (04/15/2021 8:11 PM OUTSOLE HANDLER) [facility] Sodium 134(L) 135 - 145 mmol/L [facility] Potassium, pl 3.2(L) 3.3 - 4.9 mmol/L [facility] Chloride 94(L) 97 - 110 mmol/L [facility] CO2 33(H) 22 - 32 mmol/L [facility] Anion gap 7 2 - 15 mmol/L [facility] BUN 12 8 - 25 mg/dL [facility] Creatinine 0.98 0.80 - 1.30 mg/dL [facility] Glucose 149 70 - 199 mg/dL [facility] Comment: Interpretive Data Fasting glucose >/= 126 [...] 2016. Calcium 8.4(L) 8.5 - 10.3 mg/dL [facility] Blood 04/15/2021 8:11 PM OUTSOLE HANDLER 04/15/2021 8:25 PM OUTSOLE HANDLER Polly Graf NP LAB BLOOD ORDERABLES Fin al Result [facility] Department [place] [address] * (ABNORMAL) CBC without differential (04/15/2021 8:11 PM OUTSOLE HANDLER) [facility] WBC 9.5 3.8 - 9.9 K/cumm [facility] Hgb 11.4(L) 13.0 - 17.5 g/dL [facility] Hct 32.3(L) 38.9 - 50.3 % [facility] Plt 235 150 - 400 K/cumm [facility] MPV 9.8 9.1 - 12.3 fL [facility] RBC 3.57(L) 4.30 - 5.80 M/cumm [facility] MCV 90.5 81.3 - 96.4 fL [facility] MCH 31.9 27.1 - 33.3 pg [facility] MCHC 35.3 32.3 - 35.7 g/dL [facility] RDW CV 12.5 11.1 - 14.9 % [facility] RDW SD 41.1 35.7 - 48.1 fL [facility] NRBC abs 0.00 0.00 - 0.01 K/cumm [facility] Blood 04/15/2021 8:11 PM OUTSOLE HANDLER 04/15/2021 8:25 PM OUTSOLE HANDLER Polly Graf DEPARTMENTAL SHIPPING CLERK LAB BLOOD ORDERABLES Fin al Result [facility] [place] [address] * CT Chest PE (CTA) W Contrast (04/15/2021 11:57 AM OUTSOLE HANDLER) Anatomical Region Laterality Modality Body N/A Computed Tomogra phy 04/15/2021 12:0 9 PM OUTSOLE HANDLER Impressions 04/15/2021 12:09 PM OUTSOLE HANDLER 1. No pulmonary embolism, although the evaluation [...] Manuel Curiel M.D. Narrative 04/15/2021 12:09 PM OUTSOLE HANDLER EXAMINATION: CT CHEST PE (CTA) W CONTRAST [...] Juan Manuel Curiel M.D. Polly Graf NP [facility] [place] PROCEDURES Final Result * ECG 12 lead (04/15/2021 2:49 AM OUTSOLE HANDLER) Ventricular Rate EKG/Min 111 BPM [facility] Atrial Rate 111 BPM [facility] IL-Interval (MSEC) 134 ms [facility] QRS-Interval (MSEC) 88 ms [facility] QT-Interval (MSEC) 330 ms [facility] QTc 448 ms [facility] P [place] 28 degrees [facility] R [place] 12 degrees [facility] T [place] 30 degrees [facility] Diagnosis Sinus tachycardia Low voltage QRS Borderline ECG No previous ECGs available Confirmed by JEANA GUO M.D ([id number]) on 04/15/2021 3:09:17 PM [facility] 04/15/2021 2:49 AM OUTSOLE HANDLER 04/15/2021 3:09 PM OUTSOLE HANDLER Ky Sheth MD ECG ORDERABLES Final Re sult [facility] * XR Chest 1 View (04/15/2021 2:00 AM OUTSOLE HANDLER) Anatomical Region Laterality Modality Body, Chest N/A Computed Radiogr aphy 04/15/2021 6:41 AM OUTSOLE HANDLER Impressions 04/15/2021 6:41 AM OUTSOLE HANDLER There is streaky left greater than right midlung and basilar opacities which most likely represent partial atelectasis. No definite pleural effusion. No pneumothorax. Lung volumes are small. Heart and mediastinum are within normal limits for low volume technique. Electronically signed by: Carmine Syed M.D. Narrative 04/15/2021 6:41 AM OUTSOLE HANDLER EXAMINATION: 1 view chest radiograph COMPARISON: 02/12/2020 [...] Blood gas w/Lactate POCT (04/15/2021 1:58 AM OUTSOLE HANDLER) Lactate POC i-STAT 1.8 0.7 - 2.2 mmol/L [facility] pH POC 7.52(H) 7.35 - 7.45 [facility] pCO2, Art POC 38 35 - 45 mmHg [facility] PO2 POC 27(C) 80 - 105 mmHg [facility] CO2, total POC 33(H) 20 - 30 mmol/L [facility] HCO3, POC 32(H) 21 - 30 mmol/L [facility] BE POC 9(H) -2 - 3 mmol/L [facility] O2 sat POC 59(L) 95 - 98 % [facility] Blood 04/15/2021 1:58 AM OUTSOLE HANDLER 04/15/2021 1:58 AM OUTSOLE HANDLER Ky Sheth MD LAB BLOOD ORDERABLES Fin al Result Performing Organization Address [facility] de Phone Number [facility] [place] [address] * Lactate (04/15/2021 1:48 AM OUTSOLE HANDLER) Lactate 1.9 0.7 - 2.0 mmol/L [facility] Blood 04/15/2021 1:48 AM OUTSOLE HANDLER 04/15/2021 2:21 AM OUTSOLE HANDLER Ky Sheth MD LAB BLOOD ORDERABLES Fin al Result Performing Organization Address [facility] de Phone Number [facility] [place] [address] * Troponin I high-sensitivity (04/15/2021 1:48 AM OUTSOLE HANDLER) Trop I hs <4 <=35 ng/L [facility] Comment: Interpretive Data For further hscTnI resources including the diagnostic algorithm and an aid in interpretation, copy and paste this link: [email or web address] Current Interpretive Data last revised 2019. Blood 04/15/2021 1:48 AM OUTSOLE HANDLER 04/15/2021 2:21 AM OUTSOLE HANDLER Ky Sheth MD LAB BLOOD ORDERABLES Fin al Result Performing Organization Address [facility]/ZIP Co de Phone Number [facility] Department [place] [address] * (ABNORMAL) CBC without differential (04/14/2021 10:00 PM OUTSOLE HANDLER) [facility] WBC 13.3(H) 3.8 - 9.9 K/cumm [facility] Hgb 12.4(L) 13.0 - 17.5 g/dL [facility] Hct 35.4(L) 38.9 - 50.3 % [facility] Plt 273 150 - 400 K/cumm [facility] MPV 10.1 9.1 - 12.3 fL [facility] RBC 3.90(L) 4.30 - 5.80 M/cumm [facility] MCV 90.8 81.3 - 96.4 fL [facility] MCH 31.8 27.1 - 33.3 pg [facility] MCHC 35.0 32.3 - 35.7 g/dL [facility] RDW CV 13.0 11.1 - 14.9 % [facility] RDW SD 42.6 35.7 - 48.1 fL [facility] NRBC abs 0.00 0.00 - 0.01 K/cumm [facility] Blood 04/14/2021 10:0 0 PM OUTSOLE HANDLER 04/14/2021 9:49 PM OUTSOLE HANDLER Ky Sheth MD LAB BLOOD ORDERABLES Fin al Result [facility] Department [place] [address] * (ABNORMAL) eGFR (04/14/2021 8:50 PM OUTSOLE HANDLER) [facility] eGFR 64(L) 90 - 130 mL/min/1. 73 m2 [facility] Comment: Interpretive Data Reference Interval Normal ?>/= [...] last reviewed 2020. Blood 04/14/2021 8:50 PM OUTSOLE HANDLER 04/14/2021 9:50 PM OUTSOLE HANDLER us Ky Sheth MD LAB BLOOD ORDERABLES Fin al Result [facility] Department [place] [address] * (ABNORMAL) Basic metabolic panel (04/14/2021 8:50 PM OUTSOLE HANDLER) Sodium 131(L) 135 - 145 mmol/L [facility] Potassium, pl 3.9 3.3 - 4.9 mmol/L [facility] Chloride 94(L) 97 - 110 mmol/L [facility] CO2 30 22 - 32 mmol/L [facility] Anion gap 7 2 - 15 mmol/L [facility] BUN 23 8 - 25 mg/dL [facility] Creatinine 1.27 0.80 - 1.30 mg/dL [facility] Glucose 163 70 - 199 mg/dL [facility] Comment: Interpretive Data Fasting glucose >/= 126 [...] 2016. Calcium 8.3(L) 8.5 - 10.3 mg/dL [facility] Blood 04/14/2021 8:50 PM OUTSOLE HANDLER 04/14/2021 9:41 PM OUTSOLE HANDLER Ky Sheth MD LAB BLOOD ORDERABLES Fin al Result Performing Organization Address [facility] de Phone Number [facility] Department [place] [address] * (ABNORMAL) Phosphorus (04/14/2021 8:50 PM OUTSOLE HANDLER) Phosphorus, pl 1.7(L) 2.3 - 4.5 mg/dL [facility] Blood 04/14/2021 8:50 PM OUTSOLE HANDLER 04/14/2021 9:41 PM OUTSOLE HANDLER Polly Grfa NP LAB BLOOD ORDERABLES Fin al Result Performing Organization Address [facility] Co de Phone Number [facility] Department [place] [address] * Magnesium (04/14/2021 8:50 PM OUTSOLE HANDLER) Magnesium 1.6 1.4 - 2.5 mg/dL [facility] Blood 04/14/2021 8:50 PM OUTSOLE HANDLER 04/14/2021 9:41 PM OUTSOLE HANDLER Polly Graf NP LAB BLOOD ORDERABLES Fin al Result Performing Organization Address [facility]/ZIP Co de Phone Number [facility] Department [place] [address] * (ABNORMAL) eGFR (04/13/2021 8:12 PM OUTSOLE HANDLER) eGFR 74(L) 90 - 130 mL/min/1. 73 m2 [facility] Comment: Interpretive Data Reference Interval Normal ?>/= [...] of Race in Diagnosing Kidney Disease, JASN 202). The CKD-EPI equation should not be used for patients with unstable renal function and has not been validated in children and those over 70. Current interpretive data was last reviewed 2020. Blood 04/13/2021 8:12 PM OUTSOLE HANDLER 04/13/2021 8:46 PM OUTSOLE HANDLER Ky Sheth MD LAB BLOOD ORDERABLES Mino galindo Result [facility] [place] [address] * (ABNORMAL) Comprehensive metabolic panel (04/13/2021 8:12 PM OUTSOLE HANDLER) Pathologist [facility] Sodium 138 135 - 145 mmol/L [facility] Potassium, pl 4.0 3.3 - 4.9 mmol/L [facility] Chloride 100 97 - 110 mmol/L [facility] CO2 27 22 - 32 mmol/L [facility] Anion gap 11 2 - 15 mmol/L [facility] BUN 16 8 - 25 mg/dL [facility] Creatinine 1.12 0.80 - 1.30 mg/dL [facility] Glucose 149 70 - 199 mg/dL [facility] Comment: Interpretive Data Fasting glucose >/= 126 [...] 2016. Calcium 8.9 8.5 - 10.3 mg/dL [facility] Bilirubin, total 0.5 0.1 - 1.2 mg/dL [facility] Protein, pl 6.9 6.5 - 8.5 g/dL [facility] Albumin 4.2 3.5 - 5.0 g/dL [facility] Alk phos 51 40 - 130 Units/L [facility] ALT 60(H) 7 - 55 Units/L [facility] AST 55(H) 10 - 50 Units/L [facility] Blood 04/13/2021 8:12 PM OUTSOLE HANDLER 04/13/2021 8:46 PM OUTSOLE HANDLER us Ky Sheth MD LAB BLOOD ORDERABLES Fin al Result [facility] [place] [address] * (ABNORMAL) CBC without differential (04/13/2021 8:12 PM OUTSOLE HANDLER) WBC 15.8(H) 3.8 - 9.9 K/cumm [facility] Hgb 15.5 13.0 - 17.5 g/dL [facility] Hct 45.5 38.9 - 50.3 % [facility] Plt 261 150 - 400 K/cumm [facility] MPV 10.2 9.1 - 12.3 fL [facility] RBC 4.99 4.30 - 5.80 M/cumm [facility] MCV 91.2 81.3 - 96.4 fL [facility] MCH 31.1 27.1 - 33.3 pg [facility] MCHC 34.1 32.3 - 35.7 g/dL [facility] RDW CV 12.5 11.1 - 14.9 % [facility] RDW SD 41.4 35.7 - 48.1 fL [facility] NRBC abs 0.00 0.00 - 0.01 K/cumm [facility] Blood 04/13/2021 8:12 PM OUTSOLE HANDLER 04/13/2021 8:46 PM OUTSOLE HANDLER us Ky Sheth MD LAB BLOOD ORDERABLES Fin al Result Performing Organization Address City/State/[facility] Co de Phone Number [facility] [place] [address] documented in this encounter Visit Diagnoses Diagnosis Recurrent incisional hernia- Primary documented in this encounter Admitting Diagnoses Diagnosis Recurrent incisional hernia documented in this encounter Administered Medications Inactive Administered Medications - up to 3 most recent administrations Medication Order MAR Action Action Date Dose Rate Site acetaminophen (TYLENOL) tablet 1,000 mg 1,000 mg, oral, Once, On Tue04/13/21 at 0615, For 1 dose, Pre-Op Given 04/13/2021 6:03 AM OUTSOLE HANDLER 1,000 mg acetaminophen (TYLENOL) tablet 1,000 mg 1,000 mg, oral, Once, On Tue04/13/21 at 1800, For 1 dose Given 04/13/2021 6:15 PM OUTSOLE HANDLER 1,000 mg acetaminophen (TYLENOL) tablet 1,000 mg 1,000 mg, oral, Every 6 hours scheduled, First dose (after last modification) on Tue04/14/21 at 1800 Given 04/17/2021 11:34 AM OUTSOLE HANDLER 1,000 mg Given 04/17/2021 5:49 AM OUTSOLE HANDLER 1,000 mg Given 04/16/2021 11:56 PM OUTSOLE HANDLER 1,000 mg allopurinoL (ZYLOPRIM) tablet 100 mg 100 mg, oral, 2 times daily, First dose on Tue04/14/21 at 1100 Given 04/17/2021 9:06 AM OUTSOLE HANDLER 100 mg Given 04/16/2021 9:36 PM OUTSOLE HANDLER 100 mg Given 04/16/2021 8:44 AM OUTSOLE HANDLER 100 mg camphor-menthoL (SARNA) 0.5-0.5 % lotion topical, Every 2 hours PRN, itching, Starting on Tue04/14/21 at 1414, Apply to affected area: arm, leg, Laterality: Bilateral ceFAZolin (ANCEF) 2,000 mg/20 mL in sterile water (premix) 2,000 mg 2,000 mg, intravenous, at 400 mL/hr, Administer over 3 Minutes, Every 8 hours, First dose on Tue04/13/21 at 1800, For 2 doses, Start 8 hours after pre-op dose., Indications: Prophylaxis, SurgicalIndications:Prophylaxis, Surgical Given 04/14/2021 2:55 AM OUTSOLE HANDLER 2,000 mg 400 mL/hr Given 04/13/2021 6:15 PM OUTSOLE HANDLER 2,000 mg 400 mL/hr dextrose 5% and sodium chloride 0.45% infusion (premix) 75 mL/hr, intravenous, Continuous, Starting on Tue04/14/21 at 0700 New Bag 04/15/2021 10:47 AM OUTSOLE HANDLER 75 mL/hr 75 mL/hr New Bag 04/14/2021 9:05 PM OUTSOLE HANDLER 75 mL/hr 75 mL/hr New Bag 04/14/2021 7:48 AM OUTSOLE HANDLER 75 mL/hr 75 mL/hr enoxaparin (LOVENOX) syringe 40 mg 40 mg, subcutaneous, Daily (for enoxaparin), First dose on Tue04/13/21 at 2100, Indications: Deep Vein Thrombosis PreventionIndications:Deep Vein Thrombosis Prevention Given 04/16/2021 9:35 PM OUTSOLE HANDLER 40 mg Left Upper Arm Given 04/15/2021 8:04 PM OUTSOLE HANDLER 40 mg Le ft Lower Abdomen Given 04/14/2021 8:46 PM OUTSOLE HANDLER 40 mg Le ft Lower Abdomen gabapentin (NEURONTIN) capsule 300 mg 300 mg, oral, 2 times daily, First dose (after last modification) on Tue04/15/21 at 1030, Do not crush, break, or open., Indications: Neuropathic PainIndications:Neuropathic Pain Given 04/17/2021 9:06 AM OUTSOLE HANDLER 300 mg Given 04/16/2021 9:36 PM OUTSOLE HANDLER 300 mg Given 04/16/2021 8:44 AM OUTSOLE HANDLER 300 mg heparin 5,000 unit/mL injection 5,000 Units 5,000 Units, subcutaneous, Once, On Tue04/13/21 at 0615, For 1 dose, Pre-Op, Indications: Deep Vein Thrombosis PreventionIndications:D eep Vein Thrombosis Prevention Given 04/13/2021 6:04 AM OUTSOLE HANDLER 5,000 Units Right Lower Abdomen HYDROmorphone (DILAUDID) injection 0.2 mg 0.2 mg, intravenous, Administer over 2 Minutes, Every 4 hours PRN, breakthrough pain, Starting on Tue04/15/21 at 0805 HYDROmorphone in 0.9% sodium chloride (DILAUDID) 20 mg/100 mL (0.2 mg/mL) cassette (premix) Continuous: none, COMMUNICATIONS BILLING ANALYST dose: 0.2 mg, COMMUNICATIONS BILLING ANALYST lockout: 10 Minutes, 1 hour limit: 1.2 mg, intravenous, Continuous, Starting on Tue04/13/21 at 1400, Until Tue04/15/21 at 0805, 100 mL, Indications: Pain, RoutineIndications:Pain New Syringe/Cartridg e 04/13/2021 1:29 PM OUTSOLE HANDLER 20 mg hydrOXYzine (ATARAX) tablet 25 mg 25 mg, oral, Every 6 hours PRN, anxiety, Starting on Tue04/15/21 at 1226 Given 04/16/2021 9:35 PM OUTSOLE HANDLER 25 mg Given 04/15/2021 8:05 PM OUTSOLE HANDLER 25 mg Given 04/15/2021 12:39 PM OUTSOLE HANDLER 25 mg ioversoL (OPTIRAY 350) syringe syringe 100 mL 100 mL, intravenous, Once in imaging, contrast, Starting on Tue04/15/21 at 1148, For 1 dose Contrast Given 04/15/2021 11:57 AM OUTSOLE HANDLER 96 mL Lactated Ringer's (LR) infusion 30 mL/hr, intravenous, Continuous, Starting on Tue04/13/21 at 0615, Pre-Op New Bag 04/13/2021 9:54 AM OUTSOLE HANDLER 30 mL/hr Rate/Dose Verify 04/13/2021 7:26 AM OUTSOLE HANDLER 30 mL/h r New Bag 04/13/2021 6:03 AM OUTSOLE HANDLER 30 mL/hr 30 mL/hr Lactated Ringer's (LR) infusion 100 mL/hr, intravenous, Continuous, Starting on Tue04/13/21 at 1400, Phase I & Post-op Floor, May discontinue when tolerating PO (more than 250 mL in 8 hours) New Bag 04/13/2021 11:28 PM OUTSOLE HANDLER 100 mL/hr 100 mL/hr New Bag 04/13/2021 1:24 PM OUTSOLE HANDLER 100 mL/hr 100 mL/hr lidocaine (LIDODERM) 5 % patch 1 patch 1 patch, transdermal, Administer over 12 Hours, Daily, First dose on Tue04/17/21 at 1015, Do not cover the holes on the top side of the patch., Apply to affected area: abdomen Medication Applied 04/17/2021 10:05 AM OUTSOLE HANDLER 1 patch Other (Comment) loperamide (IMODIUM) capsule 2 mg 2 mg, oral, 3 times daily PRN, diarrhea, Starting on Tue04/16/21 at 0808, Maximum recommended dose 16 mg/day Given 04/16/2021 12:33 PM OUTSOLE HANDLER 2 mg magnesium sulfate 2 g/50 mL in water (premix) 2 g 2 g, intravenous, Administer over 60 Minutes, Once, On Tue04/17/21 at 0600, For 1 dose, Indications: hypomagnesemiaIndications: hypomagnesemia New 04/17/2021 5:49 AM OUTSOLE HANDLER 2 g magnesium sulfate 4 g/100 mL in water (premix) 4 g 4 g, intravenous, Administer over 90 Minutes, Once, On Tue04/15/21 at 0215, For 1 dose New 04/15/2021 2:55 AM OUTSOLE HANDLER 4 g naloxegoL (MOVANTIK) tablet 25 mg 25 mg, oral, Once, On Tue04/13/21 at 0615, For 1 dose, Pre-Op Given 04/13/2021 6:03 AM OUTSOLE HANDLER 25 mg ondansetron (ZOFRAN) injection 4 mg 4 [...] VomitingIndications:Nausea and Vomiting Given 04/13/2021 6:32 PM OUTSOLE HANDLER 4 mg oxyCODONE (ROXICODONE) tablet 5 mg 5 mg, oral, Every 4 hours PRN, 2nd line for pain, Starting on Tue04/15/21 at 0804, Indications: PainIndications:Pain Given 04/17/2021 10:05 AM OUTSOLE HANDLER 5 mg Given 04/16/2021 9:35 PM OUTSOLE HANDLER [address] (PROTONIX) extended release tablet 40 mg 40 mg, oral, Daily, First dose on Tue04/14/21 at 0900, Do not crush, chew, cut, dissolve, open or otherwise manipulate tablet/capsule., Indications: Stress Ulcer ProphylaxisIndications:Stress Ulcer Prophylaxis Given 04/17/2021 9:06 AM OUTSOLE HANDLER 40 mg Given 04/16/2021 9:47 AM OUTSOLE HANDLER 40 mg Given 04/15/2021 8:35 AM OUTSOLE HANDLER 40 mg potassium chloride (KLOR-CON) packet 40 mEq 40 mEq, feeding tube, Once, On Roxy 04/16/21 at 0215, For 1 dose, Dissolve one packet in at least 120 mL of cold water or other beverage prior to administration. Given 04/16/2021 3:48 AM OUTSOLE HANDLER 40 mEq potassium chloride (KLOR-CON) packet 40 mEq 40 mEq, feeding tube, Every 4 hours, First dose on Tue04/17/21 at 0600, For 2 doses, Total dose = 80 mEq. Recommend to dilute each 15 mL with at least 6 ounces of water or juice prior to administration. Dissolve one packet in at least 120 mL of cold water or other beverage prior to administration. Given 04/17/2021 9:06 AM OUTSOLE HANDLER 40 m Eq Given 04/17/2021 5:49 AM OUTSOLE HANDLER 40 mEq potassium, sodium phosphates (PHOS-NAK) 280-160-250 mg packet 2 packet 2 packet, oral, 3 times daily before meals, First dose on Tue04/16/21 at 0730, Each packet contains elemental phosphorus 250 mg (8 mmol), potassium 280 mg (7.1 mEq), and sodium 160 mg (6.9 mEq). Given 04/17/2021 11:34 AM OUTSOLE HANDLER 2 packet s Given 04/17/2021 5:49 AM OUTSOLE HANDLER 2 packets Given 04/16/2021 5:18 PM OUTSOLE HANDLER 2 packets ramelteon (ROZEREM) tablet 8 mg 8 mg, oral, Nightly PRN, sleep, Starting on Tue04/15/21 at 1228, Indications: Sleep-Onset InsomniaIndications:Sleep-Onset Insomnia Given 04/16/2021 9:35 PM OUTSOLE HANDLER 8 m g Given 04/15/2021 8:05 PM OUTSOLE HANDLER 8 mg sodium chloride 0.9% flush 0.5-20 mL 0.5-20 mL, intra-catheter, Every 8 hours scheduled, First dose on Tue04/13/21 at 2200, Flush volume based on line type and size. Given 04/17/2021 6:06 AM OUTSOLE HANDLER 10 mL Given 04/16/2021 9:37 PM OUTSOLE HANDLER 10 mL Given 04/16/2021 2:15 PM OUTSOLE HANDLER 10 mL sodium chloride 0.9% flush 0.5-20 mL 0.5-20 mL, intra-catheter, As needed, line care, Starting on Tue04/13/21 at 1715, Flush volume based on line type and size. Flush before and after each use. Given 04/17/2021 9:06 AM OUTSOLE HANDLER 10 mL Given 04/16/2021 5:17 PM OUTSOLE HANDLER 10 mL Given 04/15/2021 8:41 AM OUTSOLE HANDLER 10 mL sodium phosphate - potassium phosphate (K-PHOS NEUTRAL) tablet 500 mg 500 mg, oral, 2 times daily with meals (bkfst, dinner), First dose on Tue04/15/21 at 0800, For 2 doses, Each tablet contains elemental phosphorus 250 mg (8 mmol), potassium 45 mg (1.1 mEq), and sodium 298 mg (13 mEq). Given 04/15/2021 6:03 PM OUTSOLE HANDLER 500 mg Given 04/15/2021 8:35 AM OUTSOLE HANDLER 500 mg sulfaSALAzine (AZULFIDINE) tablet 1,000 mg 1,000 mg, oral, 3 times daily, First dose on Tue04/16/21 at 0900, Indications: Crohn's Disease, arthralgiaIndications:Crohn's Disease,arthralgia Given 04/17/2021 9:06 AM OUTSOLE HANDLER 1,000 mg Given 04/16/2021 9:35 PM OUTSO[facility] 1,000 mg Given 04/16/2021 5:17 PM [facility]SOLE [facility] 1,000 mg documented in this encounter Discontinued Medications Medication Sig Discontinue Reason Start Date End Da te acetaminophen (TYLENOL ORAL) Take 1 Dose by mouth as needed Stop Taking at Discharge 04/17/2021 documented as of this encounter Active and Recently Administered Medications Times are shown in [facility]SO[facility]. Scheduled Medication Order 04/15/2021 04/16/2021 04/17/2021 acetaminophen [...] Valenzuela, HONG) 0549 (Given - Provider: Ashley Valenzuela, HONG)1134 (Given - Provider: Rainer Mixon, HONG) allopurinoL (ZYLOPRIM) tablet 100 mg 100 mg, oral, 2 times daily, First dose on Tue04/14/21 at 1100 0835 (Given - Provider: Shayna Vicente)2004 (Given - Provider: Bina Roper) 0844 (Given - Provider: Rainer Mixon RN)2136 (Given - Provider: Ashley Valenzuela RN) 0906 (Given - Provider: Rainer Mixon RN) enoxaparin (LOVENOX) syringe 40 mg 40 mg, subcutaneous, Daily (for enoxaparin), First dose on Tue04/13/21 at 2100, Indications: Deep Vein Thrombosis Prevention 2004 (Given - Provider: Bian Roper) 2134 (Given - Provider: Ashley Valenzuela, HONG) gabapentin (NEURONTIN) capsule 300 mg 300 mg, oral, 2 times daily, First dose (after last modification) on Tue04/15/21 at 1030, Do not crush, break, or open., Indications: Neuropathic Pain 1030 (Not Given - Provider: Rainer Mixon RN - Reason: NPO)1211 (Given - Provider: Rainer Mixon RN - Comment: Patient was NPO)2004 (Given - Provider: Bina Roper) 843 (Given - Provider: Rainer Mixon RN)2135 (Given - Provider: Ashley Valenzuela RN) 905 (Given - Provider: Rainer Mixon RN) lidocaine [...] 0947 (Given - Provider: Rainer Mixon RN) 09 (Given - Provider: Rainer Mixon RN) potassium chloride (KLOR-CON) packet 40 mEq (COMPLETED) 40 mEq, feeding tube, Once, On Roxy 04/16/21 at 0215, For 1 dose, Dissolve one [...] Ashley Valenzuela RN)1134 (Given - Provider: Rainer Mixon, HONG) sodium chloride 0.9% flush 0.5-20 mL 0.5-20 [...] Provider: Shayna Vicente)1803 (Given - Provider: Rainer Mixon RN) sulfaSALAzine (AZULFIDINE) tablet 1,000 mg 1,000 mg, oral, 3 times daily, First dose on Tue04/16/21 at 0900, Indications: Crohn's Disease, arthralgia 0947 (Given - Provider: Rainer Mixon RN)1717 (Given - Provider: Rainer Mixon RN)2135 (Given - Provider: Ashley Valenzuela RN) 0906 (Given - Provider: Rainer Mixon RN) Continuous [...] at 1226 1239 (Given - Provider: Rainer Mixon, RN)2004 (Given - Provider: Bina Roper) 2134 (Given - Provider: Ashley Valenzuela, HONG) ioversoL (OPTIRAY 350) syringe syringe 100 mL (COMPLETED) 100 mL, intravenous, Once in imaging, contrast, Starting on Tue04/15/21 at 1148, For 1 dose 1157 (Contrast Given - Provider: Claudia Lama, RT) loperamide (IMODIUM) capsule 2 mg 2 mg, oral, 3 times daily PRN, diarrhea, Starting on Roxy 04/16/21 at 0808, Maximum recommended dose 16 mg/day 1233 (Given - Provider: Rainer Mixon, HONG) ondansetron (ZOFRAN) injection 4 mg(Linked Group 1) [...] Starting on Tue04/15/21 at 0804, Indications: Pain 2134 (Given - Provider: Ashley Valenzuela, HONG) 100 (Given - Provider: Rainer Mixon, HONG) ramelteon (ROZEREM) tablet 8 mg 8 mg, oral, Nightly PRN, sleep, Starting on Tue04/15/21 at 1228, Indications: Sleep-Onset Insomnia 2004 (Given - Provider: Bina Roper) 2134 (Given - Provider: Ashley Valenzuela, HONG) sodium chloride 0.9% flush 0.5-20 mL 0.5-20 mL, intra-catheter, As needed, line care, Starting on Tue04/13/21 at 1715, Flush volume based on line type and size. Flush before and after each use. 0839 (Given - Provider: Shayna Vicente)0840 (Given - Provider: Shayna Vicente)0841 (Given - Provider: Shayna Vicente) 1717 (Given - Provider: Rainer Mixon, RN) 0906 (Given - Provider: Rainer Mixon, RN) Linked Groups Order Group 1: ondansetron ODT [...] Tue04/13/21 at 1306, Indications: Nausea and Vomiting documented in this encounter Orders Medications Ordered That Po ht Not Have Been Administered Count Last Ordered Date First Ordered Date HYDROmorphone (DILAUDID) injection 0.2 mg 2 04/15/2021 04/13/2021 acetaminophen (TYLENOL) tablet 1,000 mg 1 0 04/14/2021 camphor-menthoL (SARNA) 0.5-0.5 % lotion 1 04/14/2021 diphenhydrAMINE (BENADRYL) i njection 12.5 mg 1 04/14/2021 gabapentin (NEURONTIN) capsule 300 mg 2 09/2021 lidocaine (LIDODERM) 5 % patch 2 patch 1 bupivacaine (MARCAINE) 0.25 % (2.5 mg/mL) preservative free injection 1 04/13/2021 ceFAZolin (ANCEF) 2,000 mg/2 0 mL in sterile water (premix) 2,000 mg 1 04/13/2021 fentaNYL (SUBLIMAZE) preserv ative free injection 50 mcg 2 04/13/2021 haloperidol (HALDOL) injection 1 mg 1 04/13 HYDROmorphone (DILAUDID) injection 0.4 mg 1 04/13/2021 naloxone (NARCAN) 0.4 mg/mL injection 0.04-0.4 mg 2 04/13/2021 ondansetron (ZOFRAN) injection 4 mg 2 04/13 sodium chloride 0.9% flush 0.5-20 mL 1 08/2021 sodium chloride 0.9% irrigation 1 sterile water irrigation 1 04/13/2021 Diet Count Last Ordered Date First Orde red Date ADULT DISCHARGE DIET 1 04/17/2021 Nursing Count Last Ordered Date First Orde red Date DISCHARGE ACTIVITY 4 04/17/2021 DISCHARGE CALL PROVIDER 6 04/17/2021 DISCHARGE DRESSING 7 04/17/2021 FLUID RESTRICTION 1 04/15/2021 LIZ CATHETER - DISCONTINUE 1 04/14/2021 documented in this encounter Care Teams Banquet Food Server Relationship Specialty Start Date End Date Mike Mitchell MD PCP - General Family Practice 01/16/21 documented as of this encounter
--- OUTSIDE RECORDS SUMMARY | 2024-01-30 08:18 | XMS_ITS | Encounter Summary ---
Author Organization [facility] Address [address] [place] [address] Phone Care Team Providers Care Triple Drum Operator Name Role Phone Mike Mitchell MD Primary Care Provider [phone] Reason for Visit * Episode Based Medications (Routine) - Closed Specialty Diagnoses / Procedures Referred By Contac t Referred To Contact Diagnoses Crohn's disease of ileum with complication (HCC) Procedures OK INFLIXIMAB NOT BIOSIMIL 10MG Julia Moreno MD [address] [place] [address] Phone: tel: fax: [facility] Infusion Therapy [facility]ly [facility] 5th [place] [address] [place] [address] Phone: tel: fax: Referral ID Status Reason Start Date Expiration Date Visits Re quested Visits Authorized [id number] Closed 08/31/2022 09/01/2023 26 26 Encounter Details Date Type Department Care Team (Late st Contact Info) Description 04/28/2021 9:00 AM CDT Infusion [facility] Infusion Therapy [facility] [address]th [place] [address] [place] [address] Crohn's disease of ileum with [...] on file Legal Sex Male 8:42 AM CONSTRUCTION SITE MANAGER Gender Identity Not on file Sexual Orientation Straight 04/01/2020 8: 42 PM CONSTRUCTION SITE MANAGER documented as of this encounter Progress Notes * Gill Tracy RN - 04/28/2021 9:00 AM CDT Patient to clinic for remicade infusion. VSS, IV placed in right a/c. Labs drawn prior to infusion.Premedicated with tylneol. Remicade administered per protocol, patient tolerated infusion. Follow up in 8 weeks. Ambulatory at discharge, no concerns. documented in this encounter Plan of Treatment Not on file documented as of this encounter Procedures Procedure Name Priority Date/Time Associated Diagnosis Comments CBC WITH AUTO DIFFERENTIAL Routine 04/28/2021 9:10 AM CDT Crohn's disease of ileum with complication (CMS/HCC) (HCC) HEPATIC FUNCTION PANEL Routine 04/28/2021 9:10 AM CDT Crohn's disease of ileum with complication (CMS/HCC) (HCC) documented in this encounter Results * T-SPOT.TB (04/28/2021 9:10 AM CDT) T-SPOT.TB Negative Coleman MOURA Comment: Normal Value: Negative A negative test [...] test. T-SPOT.TB Panel A Spot Count 0 [facility] T-SPOT.TB Panel B Spot Count 0 [facility] T-SPOT.TB Negative Control Passed [facility] T-SPOT.TB Positive Control Passed [facility] Comment: Test Performed at: [facility] [place] [place], [place] ??[phone] ? CLARENCE MINA MD,PHD Blood 04/28/2021 9:10 AM CDT 04/28/2021 11:34 AM CDT Julia Moreno MD LAB MICROBIOLOGY - GENERAL ORDERABLES Final Result [facility] Department [place] [address] * Hepatic function panel (04/28/2021 9:10 AM CDT) Direct Bilirubin 0.12 0.00 - 0.30 mg/dL [facility] AST (SGOT) 18 11 - 47 IU/L [facility] ALT (SGPT) 21 6 - 53 IU/L [facility] Alk Phos, Total 81 35 - 129 IU/L [facility] Albumin 4.6 3.5 - 5.2 g/dL [facility] Total Bilirubin 0.38 0.20 - 1.40 mg/dL [facility] Total Protein 7.2 6.1 - 8.4 g/dL [facility] Blood specimen (specimen) 04/28/2021 9:10 AM CDT 04/28/2021 10:23 AM CDT us Julia Moreno MD LAB BLOOD ORDERABLE S Final Result [facility] * (ABNORMAL) CBC with auto differential (04/28/2021 9:10 AM CDT) White Blood Count 7.1 3.6 - 11.2 K/uL [facility] RBC 4.29 4.06 - 5.63 M/uL [facility] Hemoglobin 13.4 13.0 - 17.5 g/dL [facility] Comment:Repeated and Verifie d Hematocrit 39.3(L) 40.7 - 50.3 % [facility] Comment:Repeated and Verifie d MCV 91.6 80.0 - 97.6 fL [facility] MCH 31.3 26.7 - 33.7 pg [facility] MCHC 34.2 32.7 - 35.5 g/dL [facility] RBC Dist Width 13.0 12.3 - 17.0 % [facility] Platelet Count 375 140 - 440 K/uL [facility] Comment:Repeated and Verifie d MPV 8.1 6.8 - 10.4 fL [facility] Neutrophils % 68.0 38.7 - 74.5 % [facility] Lymphocyte % 21.9 20.0 - 54.3 % [facility] Monocytes % 7.3 4.3 - 13.5 % [facility] Eosinophils % 2.0 0.0 - 6.0 % [facility] Basophil % 0.8 0.0 - 3.0 % [facility] Absolute Neutrophil 4.9 1.8 - 6.6 K/uL [facility] Absolute Lymphocyte 1.6 0.8 - 3.3 K/uL [facility] Absolute Monocyte 0.5 0.2 - 1.2 K/uL [facility] Absolute Eosinophil 0.1 0.0 - 0.5 K/uL [facility] Absolute Basophil 0.1 0.0 - 0.2 K/uL [facility] Nucleated RBC % 0.0 0.0 - 0.4 /100 WBC [facility] Blood specimen (specimen) 04/28/2021 9:10 AM CDT 04/28/2021 10:23 AM CDT us Julia Moreno MD LAB BLOOD ORDERABLE S Final Result [facility] documented in this encounter Visit Diagnoses Diagnosis Crohn's disease of ileum with complication (HCC)- Primary documented in this encounter Administered Medications Inactive Administered Medications - up to 3 most recent administrations Medication Order MAR Action Action Date Dose Rate Site acetaminophen (TYLENOL) tablet 500 mg 500 mg, oral, Once, On Tue04/28/21 at 1000, For 1 dose, Please give 30 minutes prior to infusion for infusion reaction prophylaxis.Indications:Crohn's disease of ileum with complication (HCC) Given 04/28/2021 9:05 AM CDT 500 mg inFLIXimab (REMICADE) 1,200 mg in sodium chloride 0.9% 500 mL IVPB 1,200 mg, intravenous, Administer over 2 Hours, Once, On Tue04/28/21 at 0930, For 1 dose, Infuse with [...] of ileum with complication (HCC) New Bag 04/28/2021 9:15 AM CDT 1,200 mg documented in this encounter Orders Medications Ordered That Po ht Not Have Been Administered Count Last Ordered Date First Ordered Date sodium chloride 0.9% flush 10 mL 1 04/29/19 Nursing Count Last Ordered Date First Orde red Date ONCBCN NURSING COMMUNICATION [id number] 1 0 04/28/2021 VITAL SIGNS INTRA-INFUSION 1 04/28/2021 documented in this encounter Care Teams Triple Drum Operator Relationship Specialty Start Date End Date Mike Mitchell MD PCP - General Family Practice 01/16/21 documented as of this encounter
--- OUTSIDE RECORDS SUMMARY | 2024-01-30 08:18 | XMS_ITS | Encounter Summary ---
Author Organization [facility] Healthcare Address [address] [place] [address] Care Team Providers Care Sludge Control Operator Name Role Phone Mike Mitchell MD Primary Care Provider [phone] Encounter Details Date Type Department Care Team (Late st Contact Info) Description 04/09/2021 7:00 PM ECONOMIC ANALYST Lab [address] [address] Pre-op testing Social History Tobacco Use Types Packs/Day [...] on file Legal Sex Male 8:42 AM ECONOMIC ANALYST Gender Identity Not on file Sexual Orientation Straight 04/01/2020 8: 42 PM ECONOMIC ANALYST documented as of this encounter Plan of Treatment Not on file documented as of this encounter Procedures Procedure Name Priority Date/Time Associated Diagnosis Comments COVID-19 CORONAVIRUS RNA Routine 04/09/2021 10:41 AM ECONOMIC ANALYST Pre-op testing documented in this encounter Results * COVID-19 Coronavirus RNA Nasopharyngeal (04/09/2021 10:41 AM ECONOMIC ANALYST) COVID-19 RNA Not Detected [facility] Comment: Interpretive Data Synonyms for this test include: PCR and NAAT . ??Testing performed by the [facility] Disease [facility]. The 2019-Novel Coronavirus Assay (COVID-19) Real Time RT-PCR assay is for in vitro diagnostic use under FDA emergency use authorization only. A negative RT-PCR result does not preclude infection with COVID-19 and should not be used as the sole basis for treatment or other patient management decisions. ??Additional sample types have been validated according to CLIA regulations. ?? Current Interpretive Data was last revised on March 13, 2020. Testing performed by: [facility], [address] [place] [address]., [address] First COVID-19 test? No CERNER Comment:Testing performed by : [facility], [address] [place] [address], [address] Employeed in healthcare? No CERNER Comment:Testing performed by : [facility], [address] [place] [address], [address] Group care resident? No CERNER Comment:Testing performed by : [facility], [address] [place] [address], [address] Hospitalized? No CERNER Comment:Testing performed by : [facility], [address] [facility], [address] Is patient in ICU? No [facility]:Testing performed by : [facility], [address] [place] [address], [address] Symptomatic as defined by CDC? No CERNER Comment:Testing performed by : [facility], [address] [place] [address], [address] Nasopharyngeal 04/09/2021 10 :41 AM ECONOMIC ANALYST 04/09/2021 11:21 PM ECONOMIC ANALYST Narrative [facility]NA[facility] - 04/10/2021 8:50 AM ECONOMIC ANALYST What is the reason for testing?->Screening prior to scheduled??procedure or surgery??(Batched) us Ky Sheth MD LAB MICROBIOLOGY - GENER AL ORDERABLES Final Result [facility] [address] [place] [address] documented in this encounter Visit Diagnoses Diagnosis Pre-op testing Unspecified pre-operative examination documented in this encounter Care Teams Sludge Control Operator Relationship Specialty Start Date End Date Mike Mitchell MD PCP - General Family Practice 01/16/21 documented as of this encounter
--- OUTSIDE RECORDS SUMMARY | 2024-01-30 08:18 | XMS_ITS | Encounter Summary ---
Author Organization [facility] [place] [facility] Address [address] [place] [address] Phone Care Team Providers Care Crude Tester Name Role Phone Mike Mitchell MD Primary Care Provider [phone] Encounter Details Date Type Department Care Team (Late st Contact Info) Description 02/16/2021 Orders Only [facility] Gastroenterology [address] [facility] 8th [place] [address] [place] [phone] Lety Corral LPN Social History Tobacco Use [...] on file Legal Sex Male 8:42 AM EMERGENCY MEDICINE MEDICAL DIRECTOR Gender Identity Not on file Sexual Orientation Straight 04/01/2020 8: 42 PM EMERGENCY MEDICINE MEDICAL DIRECTOR documented as of this encounter Progress Notes * Lety Corral LPN - 02/16/2021 10:50 AM CST Pt due for annual T-spot TB in 03/2021. One time order added to Remicade therapy plan for T-spot TB to be drawn with upcoming infusion on 03/02/21. GENCY MEDICINE MEDICAL DIRECTOR documented in this encounter Plan of Treatment Not on file documented as of this encounter Visit Diagnoses Not on filedocumented in this encounter Care Teams Crude Tester Relationship Specialty Start Date End Date Mike Mitchell MD PCP - General Family Practice 01/16/21 documented as of this encounter
--- OUTSIDE RECORDS SUMMARY | 2024-01-30 08:18 | XMS_ITS | Encounter Summary ---
Author Organization [facility] Address [address] [facility] [address] [place] [address] Care Team Providers Care Applications Sales Consultant Name Role Phone Mike Mitchell MD Primary Care Provider [phone] Reason for Visit * Reason Comments Pre-op Exam Pre procedural swab Encounter Details Date Type Department Care Team (Latest Contact Info) Description 04/09/2021 10:45 AM DRAGLINE OPERATOR HELPER Clinical Support [facility] at [address] [place] [phone] Pre-op testing (Primary Dx) Social History Tobacco Use Types [...] on file Legal Sex Male 8:42 AM DRAGLINE OPERATOR HELPER Gender Identity Not on file Sexual Orientation Straight 04/01/2020 8: 42 PM DRAGLINE OPERATOR HELPER documented as of this encounter Progress Notes * Delia Kirk MA - 04/09/2021 10:45 AM CST Patient presents today for pre procedure COVID-19 test. Scheduled for a procedure on 04/13/21. N95 mask, gown, gloves, and eye protection worn during swab collection. Patient instructed to self-isolate from time of swab collection until scheduled surgery. LINE OPERATOR HELPER documented in this encounter Plan of Treatment Not on file documented as of this encounter Results * COVID-19 Coronavirus RNA Nasopharyngeal (04/09/2021 10:41 AM DRAGLINE OPERATOR HELPER) COVID-19 RNA Not Detected [facility] CH Comment: Interpretive Data Synonyms for this test include: PCR and NAAT . ??Testing performed by the [facility] Molecular Infectious Disease Laboratory. The 2019-Novel Coronavirus [...] on March 13, 2020. Testing performed by: [facility], [address] [place] [address]., [address] First COVID-19 test? No [facility] CH Comment:Testing performed by : [facility], [address] [place]., [address] Employeed in healthcare? No [facility] CH Comment:Testing performed by : [facility], [address] [place] [address]., [address] Group care resident? No C[facility]ER CH Comment:Testing performed by : [facility], [address] [place] [address]., [address] Hospitalized? No C[facility]ER CH Comment:Testing performed by : [facility], [address] [place] [address]., [address] Is patient in ICU? No C[facility]ER CH Comment:Testing performed by : [facility], [address] [place] [address]., [address] Symptomatic as defined by CDC? No CERNER CH Comment:Testing performed by : [facility] [address], [place]., [address] Nasopharyngeal 04/09/2021 10 :41 AM DRAGLINE OPERATOR HELPER 04/09/2021 11:21 PM DRAGLINE OPERATOR HELPER Narrative [facility]NA[facility] VERA - 04/10/2021 8:50 AM DRAGLINE OPERATOR HELPER What is the reason for testing?->Screening prior to scheduled??procedure or surgery??(Batched) us Ky Sheth MD LAB MICROBIOLOGY - GENER AL ORDERABLES Final Result [facility] [address] Department [place] [address] documented in this encounter Visit Diagnoses Diagnosis Pre-op testing- Primary Unspecified pre-operative examination Pre-op testing Unspecified pre-operative examination documented in this encounter Care Teams Applications Sales Consultant Relationship Specialty Start Date End Date Mike Mitchell MD PCP - General Family Practice 01/16/21 documented as of this encounter
--- OUTSIDE RECORDS SUMMARY | 2024-01-30 08:18 | XMS_ITS | Encounter Summary ---
Author Organization [facility] Healthcare Address [address] [place] [address] Care Team Providers Care Cuff Matcher Name Role Phone Mike Mitchell MD Primary Care Provider [phone] Encounter Details Date Type Department Care Team (Late st Contact Info) Description 03/17/2021 7:40 PM EVALUATION ASSISTANT Lab [address] [address] Social History Tobacco Use Types Packs/Day Years [...] on file Legal Sex Male 8:42 AM EVALUATION ASSISTANT Gender Identity Not on file Sexual Orientation Straight 04/01/2020 8: 42 PM EVALUATION ASSISTANT documented as of this encounter Plan of Treatment Not on file documented as of this encounter Procedures Procedure Name Priority Date/Time Associated Diagnosis Comments ANTIBODY IDENTIFICATION Timed 03/17/19 9:04 PM EVALUATION ASSISTANT TYPE AND SCREEN 14 DAY Routine 11:47 AM EVALUATION ASSISTANT documented in this encounter Results * Antibody identification (03/17/2021 9:04 PM EVALUATION ASSISTANT) Antibody ID 1 Anti-E [facility] Blood 03/17/2021 9:04 PM EVALUATION ASSISTANT 03/17/2021 9:04 PM EVALUATION ASSISTANT Yvette Kruse INSTRUCTIONAL TECHNOLOGIST LAB BLOOD BANK TEST ORDERA BLES Final Result Performing Organization Address City/[facility]/ZIP Co de Phone Number [facility] [place] [address] * (ABNORMAL) TYPE AND SCREEN 14 DAY (03/17/2021 11:47 AM EVALUATION ASSISTANT) ABO Rh A Positive [facility] Pam, indirect Positive(A) [facility] Blood 03/17/2021 11:4 7 AM EVALUATION ASSISTANT 03/17/2021 7:41 PM EVALUATION ASSISTANT Yvette Kruse LAB BLOOD BANK TEST ORDERA BLES Final Result Performing Organization Address City/[facility] [place] [address] documented in this encounter Visit Diagnoses Not on filedocumented in this encounter Care Teams Cuff Matcher Relationship Specialty Start Date End Date Mike Mitchell MD PCP - General Family Practice 01/16/21 documented as of this encounter
--- OUTSIDE RECORDS SUMMARY | 2024-01-30 08:19 | XMS_ITS | Encounter Summary ---
Author Organization [facility] Address [address] [place] [address] Phone Care Team Providers Care Hardness Inspector Name Role Phone Scott Randle DO Primary Care Provider [phone] Encounter Details Date Type Department Care Team (Late st Contact Info) Description 08/07/2020 10:00 AM CDT Office Visit 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 Gender Identity Not on file Sexual Orientation Straight 04/01/2020 8: 42 PM ELEMENTARY SCHOOL MUSIC TEACHER documented as of this encounter Last Filed Vital Signs Vital Sign Reading Time Taken Comments Blood Pressure 141/90 08/07/2020 9:56 AM CDT Pulse 57 08/07/2020 9:56 AM CDT Temperature 36.6 ??C (97.9 ??F) 08/07/2020 9:56 AM CD T Respiratory Rate - - Oxygen Saturation - - Inhaled Oxygen Concentration - - Weight 116.8 kg (257 lb 9.6 oz) 08/07/2020 9:56 AM CDT Height 182.9 cm (6') 08/07/2020 9:56 AM CDT Body Mass Index 34.94 08/07/2020 9:56 AM CDT documented in this encounter Patient Instructions * Patient Instructions* Carrie Faulkner RN - 08/07/2020 10:00 AM CDT Schedule pouchoscopy in 11/2020 - Brenda will contact you to schedule Schedule follow clinic appointment in 6 months documented in this encounter Progress Notes * Ravi Holliday MD - 08/07/2020 10:00 AM CDT Reason for visit: follow up for Crohn's disease of the pouch Problem List: Patient Active Problem List Diagnosis Date Noted ??? Crohn's disease of ileum with complication (CMS/HCC) 03/27/2020 ??? Recurrent incisional hernia 03/07/2020 HPI: Willam Spence is a 60 y.o. male with Crohn's disease of the pouch returns for follow up. At last visit he was on Stelara and having 10-12 BM/d. Flex sig in clinic showed severe ulcerationsin his afferent limb. We checked his KATE virus, which was positive, making tysabri not an option. Hewas started on infliximab 5 mg/kg instead. He just had his first maintenance dose. He says he is doing great. He has 7 bm/d including one at night, but he has much less urgency. He will take an immodium once before going golfing and then has no issues. He wears a pad at night and it is usually clean in the morning. He had one accident after eating pizza late at night. He seems to have issues if he has lactose, which didn't used to be a problem for him. Limiting dairy has helped. He denies abdominal pain. No blood in his stool. No nausea or vomiting. Review of Systems: On complete review of systems, all other systems are negative. Allergies Allergen Reactions ??? Iron Rash ??? [place] Juice Hives ??? [place] Oil Hives ??? Sulfa (Sulfonamide Antibiotics) Hives and Rash ??? Tomato Hives ??? Fruit Extracts Unknown Tomatoes and oranges ??? Sulfur Unknown Cerner Allergy Text Annotation: Sulfur ??? Azathioprine Other (See comments) pancreatitis Current Outpatient Medications Medication Sig Dispense Refill ??? allopurinoL (ZYLOPRIM) 100 mg tablet Take 100 mg by mouth 2 (two) times a day ??? chlorthalidone 25 mg tablet Take 25 mg by mouth daily ??? cholecalciferol (Vitamin D3) 2000 unit tablet Take 1 tablet (2,000 Units total) by mouth daily 90 tablet 3 ??? esomeprazole DR (NexIUM) 20 mg capsule ??? folic acid-vit B6-vit B12 2.2-25-1 mg tablet ??? gabapentin (NEURONTIN) 100 mg capsule Take 100 mg by mouth daily ??? inFLIXimab (REMICADE) 100 mg injection Infuse 600 mg into a venous catheter as directed 5 mg/kgat weeks 0,2,6 then every 8 weeks at CAM 5C ??? iron,carbonyl-vitamin C 65 mg iron- 125 mg tablet,delayed release (DR/EC) Take by mouth ??? Klor-Con M20 20 mEq CR tablet Take 20 mEq by mouth 3 (three) times a day ??? loperamide (IMODIUM) 0.133 mg/mL solution Take by mouth ??? metoprolol XL (TOPROL-XL) 50 mg extended release tablet Take by mouth ??? xcfqypegrsvm-cuuiojbl-rxzgez tablet Take 1 tablet by mouth daily ??? ondansetron ODT (ZOFRAN-ODT) 4 mg disintegrating tablet Take 4 mg by mouth every 8 (eight) hours as needed ??? sildenafiL, pulm.hypertension, (REVATIO) 20 mg tablet 5 mg ??? tamsulosin (FLOMAX) 0.4 mg extended release capsule Take by mouth daily ??? testosterone 1.62 % (40.5 mg/2.5 gram) gel in packet None Entered ??? acetaminophen-codeine (TYLENOL with CODEINE #3) 300-30 mg per tablet Take 1- 2 tablets by mouth every 4 (four) hours as needed (Patient not taking: Reported on 08/07/2020) ??? budesonide EC (ENTOCORT EC) 3 mg 24 hr capsule Take by mouth (Patient not taking: Reported on 08/07/2020) ??? cefdinir (OMNICEF) 300 mg capsule TAKE 1 CAPSULE (300 MG TOTAL) BY MOUTH 2 (TWO) TIMES A DAY FOR 7 DAYS , THEN TAKE 1 CAP DAILY (Patient not taking: Reported on 08/07/2020) 35 capsule 1 ??? citalopram (CeleXA) 20 mg tablet 10 mg (Patient not taking: Reported on 08/07/2020) ??? HYDROcodone-acetaminophen (NORCO) 5-325 mg per tablet Take 1-2 tablets by mouth every 6 (six) hours as needed (Patient not taking: Reported on 08/07/2020) ??? methotrexate 2.5 mg tablet TAKE 6 TABLETS (15 MG TOTAL) BY MOUTH EVERY 7 DAYS (Patient not taking: Reported on 08/07/2020) ??? omeprazole (PriLOSEC) 20 mg capsule Take 40 mg by mouth daily (Patient not taking: Reported on 08/07/2020) ??? phenazopyridine (PYRIDIUM) 200 mg tablet Take 200 mg by mouth 3 (three) times a day (Patient not taking: Reported on 08/07/2020) ??? predniSONE (DELTASONE) 10 mg tablet TAKE 4 TAB BY MOUTH DAILY X2 DAYS 3 TAB DAILY X 2 DAYS, 2 TAB DAILY X 2 DAY, 1 TAB DAILY X 2 DAYS. (Patient not taking: Reported on 08/07/2020) ??? valACYclovir (VALTREX) 1 gram tablet Take 1,000 mg by mouth 3 (three) times a day (Patient not taking: Reported on 08/07/2020) No current facility-administered medications for this visit. Physical Exam: BP 141/90 Pulse 57 Temp 36.6 ??C (97.9 ??F) Ht 182.9 cm (6') Wt 116.8 kg (257 lb 9.6 oz) BMI 34.94 kg/m?? General: Awake, alert, no apparent distress, well nourished HEENT: Normocephalic, atraumatic, anicteric, conjunctiva normal Pulmonary: Clear to auscultation bilaterally Cardiovascular: Regular rhythm and rate, normal S1/S2, no murmurs/rubs/gallops Abdomen: obese, large ventral hernia, soft, non-tender, non-distended, normoactive bowel sounds, nopalpable masses, no rebound or guarding Extremities: Warm and well perfused, no cyanosis, no clubbing, no edema Skin: Warm, dry, no rashes Neuro: No focal deficits Psych: Normal affect and mood Labs: Infusion on 07/14/2020 Component Date Value Ref Range Status ??? Direct Bilirubin 07/14/2020 0.09 0.00 - 0.30 mg/dL Final ??? AST (SGOT) 07/14/2020 25 11 - 47 IU/L Final ??? ALT (SGPT) 07/14/2020 32 6 - 53 IU/L Final ??? Alk Phos, Total 07/14/2020 54 35 - 129 IU/L Final ??? Albumin 07/14/2020 4.4 3.5 - 5.2 g/dL Final ??? Total Bilirubin 07/14/2020 0.37 0.20 - 1.40 mg/dL Final ??? Total Protein 07/14/2020 6.9 6.1 - 8.4 g/dL Final ??? White Blood Count 07/14/2020 5.9 3.6 - 11.2 K/uL Final ??? RBC 07/14/2020 5.04 4.06 - 5.63 M/uL Final ??? Hemoglobin 07/14/2020 16.0 13.0 - 17.5 g/dL Final ??? Hematocrit 07/14/2020 44.8 40 - 50 % Final ??? MCV 07/14/2020 88.8 80.0 - 97.6 fL Final ??? MCH 07/14/2020 31.7 26.7 - 33.7 pg Final ??? MCHC 07/14/2020 35.6* 32 - 35 g/dL Final ??? RBC Dist Width 07/14/2020 13.2 12.3 - 17.0 % Final ??? Platelet Count 07/14/2020 206 140 - 440 K/uL Final ??? MPV 07/14/2020 8.7 6.8 - 10.4 fL Final ??? Neutrophils % 07/14/2020 58.4 38 - 74 % Final ??? Lymphocyte % 07/14/2020 31.5 20.0 - 54.3 % Final ??? Monocytes % 07/14/2020 8.5 4 - 13 % Final ??? Eosinophils % 07/14/2020 1.2 0 - 6 % Final ??? Basophil % 07/14/2020 0.4 0.0 - 3.0 % Final ??? Absolute Neutrophil 07/14/2020 3.4 1 - 6 K/uL Final ??? Absolute Lymphocyte 07/14/2020 1.9 0.8 - 3.3 K/uL Final ??? Absolute Monocyte 07/14/2020 0.5 0.2 - 1.2 K/uL Final ??? Absolute Eosinophil 07/14/2020 0.1 0.0 - 0.5 K/uL Final ??? Absolute Basophil 07/14/2020 0.0 0.0 - 0.2 K/uL Final ??? Nucleated RBC % 07/14/2020 0.0 0.0 - 0.4 /100 WBC Final Lab on 05/19/2020 Component Date Value Ref Range Status ??? Bilirubin, total 05/19/2020 0.4 0.1 - 1.2 mg/dL Final ? ? Bilirubin, direct 05/19/2020 <0.2 0.1 - 0.3 mg/dL Final ??? Protein, pl 05/19/2020 7.1 6.5 - 8.5 g/dL Final ??? Albumin 05/19/2020 4.7 3.5 - 5.0 g/dL Final ??? Alk phos 05/19/2020 55 40 - 130 Units/L Final ??? ALT 05/19/2020 48 7 - 55 Units/L Final ??? AST 05/19/2020 35 10 - 50 Units/L Final Infusion on 05/19/2020 Component Date Value Ref Range Status ??? White Blood Count 05/19/2020 5.2 3.6 - 11.2 K/uL Final ??? RBC 05/19/2020 4.96 4.06 - 5.63 M/uL Final ??? Hemoglobin 05/19/2020 15.7 13.0 - 17.5 g/dL Final ??? Hematocrit 05/19/2020 45.1 40 - 50 % Final ??? MCV 05/19/2020 90.9 80.0 - 97.6 fL Final ??? MCH 05/19/2020 31.6 26.7 - 33.7 pg Final ??? MCHC 05/19/2020 34.7 32 - 35 g/dL Final ??? RBC Dist Width 05/19/2020 13.0 12.3 - 17.0 % Final ??? Platelet Count 05/19/2020 204 140 - 440 K/uL Final ??? MPV 05/19/2020 8.6 6.8 - 10.4 fL Final ??? Neutrophils % 05/19/2020 54.0 38 - 74 % Final ??? Lymphocyte % 05/19/2020 32.5 20.0 - 54.3 % Final ??? Monocytes % 05/19/2020 9.8 4 - 13 % Final ??? Eosinophils % 05/19/2020 2.9 0 - 6 % Final ??? Basophil % 05/19/2020 0.8 0.0 - 3.0 % Final ??? Absolute Neutrophil 05/19/2020 2.8 1 - 6 K/uL Final ??? Absolute Lymphocyte 05/19/2020 1.7 0.8 - 3.3 K/uL Final ??? Absolute Monocyte 05/19/2020 0.5 0.2 - 1.2 K/uL Final ??? Absolute Eosinophil 05/19/2020 0.2 0.0 - 0.5 K/uL Final ??? Absolute Basophil 05/19/2020 0.0 0.0 - 0.2 K/uL Final ??? Nucleated RBC % 05/19/2020 0.3 0.0 - 0.4 /100 WBC Final Assessment/Plan: 1. Crohn's disease of the pouch -Ulcerations in afferent limbe with normal appearing pouch is consistent with Crohn's of the pouch.He has had symptomatic improvement with infliximab. We will plan on performing a pouchoscopy after he has had a few more doses of infliximab. We told him he can take more immodium if needed. -continue infliximab -pouchoscopy in the fall -cont vitamin d -he is adamant that he is not going to get the covid vaccine Return in about 6 months (around 02/07/2021). Ravi Holliday MD Cosigned by Julia Moreno MD at 08/12/2020 7:36 AM CDT Associated attestation - Julia Moreno MD - 08/12/2020 7:36 AM CDT I have seen and examined the patient. I agree with the findings and plan of care as documented in the resident/fellow's note. My total encounter time on 08/07/2020 was 30 minutes which was spent in theactivities documented in the note. This includes time spent prior to the visit and after the visit in direct care of the patient. This time does not include time spent in any separately reportable ser vices. documented in this encounter Plan of Treatment Not on file documented as of this encounter Visit Diagnoses Diagnosis Crohn's 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 (CMS/HCC) (HCC)- Primary High risk medications (not anticoagulants) long-term use Encounter for long-term (current) use of other medications documented in this encounter Care Teams Hardness Inspector Relationship Specialty Start Date End Date Scott Randle DO PCP - General Family Medicine 02/06/20 11/13/20 documented as of this encounter
--- OUTSIDE RECORDS SUMMARY | 2024-01-30 08:19 | XMS_ITS | Encounter Summary ---
Author Organization 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 Gender Identity Not on file Sexual Orientation Straight 04/01/2020 8: 42 PM REGISTER IN CHANCERY documented as of this encounter Plan of Treatment Not on file documented as of this encounter Procedures Procedure Name Priority Date/Time Associated Diagnosis Comments REFLEX TO INFLIXIMAB, QUANTITATIVE Routine 01/05/2021 9:40 AM REGISTER IN CHANCERY INFLIXIMAB LEVEL Routine 01/05/2021 9:40 AM REGISTER IN CHANCERY documented in this encounter Results * Reflex to Infliximab, quantitative (01/05/2021 9:40 AM REGISTER IN CHANCERY) Anti infliximab ab <20.0 <50.0 units/mL HANNAH MOURA Infliximab Antibody Interp See Footnote HANNAH SINGH Comment: Absence of detectable xxyxhlxo-jq-nklguhsiny. Low concentration of infliximab may be attributable to other parameters related to infliximab clearance. ADDITIONAL INFORMATION This test was developed and its performance characteristics determined by [facility] in a manner consistent with CLIA requirements. This test has not been cleared or approved by the U.S. Food and Drug Administration. Test Performed by: [facility] [address] [place] [address] Golf Tournament Consultant: Cam Molina M.D. Ph.D.; CLIA# [id number] Blood 01/05/2021 9:40 AM REGISTER IN CHANCERY 01/05/2021 11:15 AM REGISTER IN CHANCERY us Julia Moreno MD LAB BLOOD ORDERABLE S Final Result HANNAH ZENY [facility] Department [place] [address] * (ABNORMAL) Infliximab level (01/05/2021 9:40 AM REGISTER IN CHANCERY) Infliximab 1.4(L) mcg/mL HANNAH MOURA Comment: REFERENCE VALUE Limit of Quantitation = 1.0 mcg/mL Infliximab interp See Footnote HANNAH MOURA Comment: For concentrations of infliximab less than or equal to 5.0 mcg/mL, reflex testing for kbzamshpya-hs-toubxzfsti will be performed. ADDITIONAL INFORMATION This test was developed and its performance characteristics determined by [facility] in a manner consistent with CLIA requirements. This test has not been cleared or approved by the U.S. Food and Drug Administration. Test Performed by: [facility] - [facility] [address] [place] [address] Golf Tournament Consultant: Cam Molina M.D. Ph.D.; CLIA# [id number] Blood 01/05/2021 9:40 AM REGISTER IN CHANCERY 01/05/2021 11:15 AM REGISTER IN CHANCERY us Julia Moreno MD LAB BLOOD ORDERABLE S Final Result [facility] Department [place] [address] documented in this encounter Visit Diagnoses Not on filedocumented in this encounter Care Teams Toll Line Inspector Relationship Specialty Start Date End Date Scott Randle DO PCP - General 11/14/20 01/15/21 documented as of this encounter
--- OUTSIDE RECORDS SUMMARY | 2024-01-30 08:19 | XMS_ITS | Encounter Summary ---
Author Organization [facility] Address [address] [place] [address] Phone Care Team Providers Care Data Processing Systems Project Planner Name Role Phone Scott Randle DO Primary Care Provider [phone] Encounter Details Date Type Department Care Team (Late st Contact Info) Description 04/21/2020 1:10 PM CDT Lab [facility] Endocrinology Metabolism and Lipid [address] [facility] 5th [place] [address] [place] [address] Crohn's disease of ileum with complication (CMS/HCC) Social History Tobacco Use Types Packs/Day Years Used Date Smoking Tobacco: Never Sex and Gender Information Value Date Recorded Sex Assigned at Not on file 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
--- OUTSIDE RECORDS SUMMARY | 2024-01-30 08:19 | XMS_ITS | Encounter Summary ---
Author Organization [facility] Address [address] [place] [address] Phone Care Team Providers Care Macaroni Press Operator Name Role Phone Scott Randle DO Primary Care Provider [phone] Encounter Details Date Type Department Care Team (Late st Contact Info) Description 09/08/2020 1:40 PM CDT Lab [facility] Endocrinology Metabolism and Lipid [address] [facility] 5th [place] [address] [place] [address] Crohn's disease of ileum with complication (CMS/HCC) (HCC) Social History Tobacco Use Types Packs/Day Years Used Date Smoking Tobacco: Never Sex and Gender Information Value Date Recorded Sex Assigned at Not on file 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
--- OUTSIDE RECORDS SUMMARY | 2024-01-30 08:19 | XMS_ITS | Encounter Summary ---
Author Organization [facility] Healthcare Address [address] [place] [address] Care Team Providers Care Finance Vice President Name Role Phone Scott Randle DO Primary Care Provider [phone] Encounter Details Date Type Department Care Team (Late st Contact Info) Description 11/14/2020 7:20 AM CDT - 11/14/2020 10:15 AM CDT Hospital Encounter [facility] Endoscopy [address] [place] [address] Julia Moreno MD [address] [place], [place] [id number] Crohn's disease of ileum with complication (CMS/HCC) ([facility]) Discharge Disposition: Discharge to home or self care Social History Tobacco Use Types Packs/Day Years Used Date Smoking Tobacco: Never AUDIT-C Answer Date Recorded Q1: How often [...] on file Legal Sex Male 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 Gender Identity Not on file Sexual Orientation Straight 04/01/2020 8: 42 PM FEATHER EDGER documented as of this encounter Last Filed Vital Signs Vital Sign Reading Time Taken Comments Blood Pressure 128/79 11/14/2020 9:35 AM CDT Pulse 52 11/14/2020 9:40 AM CDT Temperature 36.1 ??C (97 ??F) 11/14/2020 9:10 AM CDT Respiratory Rate 32 11/14/2020 9:40 AM CDT Oxygen Saturation 93% 11/14/2020 9:40 AM CDT Inhaled Oxygen Concentration - - Weight 116.6 kg (257 lb) 11/14/2020 7:42 AM CDT Height 182.9 cm (6') 11/14/2020 7:42 AM CDT Body Mass Index 34.86 11/14/2020 7:42 AM CDT documented in this encounter Discharge Diagnoses Diagnosis Crohn's disease of small intestine without complications (HCC) - CROHN'S DISEASE OF SMALL INTESTINE WITHOUT COMPLICATIONS Ulcer of intestine - ULCER OF INTESTINE Other diseases of stomach and duodenum - OTHER DISEASES OF STOMACH AND DUODENUM Eosinophilia, unspecified - EOSINOPHILIA, UNSPECIFIED Gastro-esophageal reflux disease without esophagitis - GASTRO-ESOPHAGEAL REFLUX DISEASE WITHOUT ESOPHAGITIS Essential (primary) hypertension - ESSENTIAL (PRIMARY) HYPERTENSION Unspecified essential hypertension Other fci (current) drug therapy - OTHER BREAKER HAND (CURRENT) DRUG THERAPY Family history of ischemic heart disease and other diseases of the circulatory system - FAMILY HISTORY OF ISCHEMIC HEART DISEASE AND OTHER DISEASES OF THE CIRCULATORY SYSTEM documented in this encounter Discharge Instructions * Attachments The following attachments cannot be sent through Care Everywhere. * Procedural Sedation (AfterCare(R) Instructions(ER/ED)) (Micronesian) documented in this encounter Medications at Time [...] total) by mouth every morning bid 0 Klor-Con M20 20 mEq CR tabletIndications:sup plement Take 1 tablet (20 mEq total) by mouth 3 (three) times a day 0 multivitamin-minerals -lutein tabletIndications:sup plement Take 1 tablet by mouth every morning testosterone cypionate (DEPO-TESTOTERONE) 200 mg/mL injectionIndications: Androgen Deficiency Inject 0.5 mL (100 mg total) into the muscle as instructed every 14 (fourteen) days 1 acetaminophen-codeine (TYLENOL with CODEINE #3) 300-30 mg per tablet Take 1-2 tablets by mouth every 4 (four) hours as needed 2 11/18/19 21 cholecalciferol (Vitamin D3) 2000 unit tabletIndications:Low serum vitamin D Take 1 tablet (2,000 Units total) by mouth daily 90 tablet 3 1 01/13/20 21 fenofibrate nanocrystallized (TRICOR) 48 mg tablet Take 48 mg by mouth daily 1 01/17/20 21 gabapentin (NEURONTIN) 300 mg capsuleIndications:Ne uropathic Pain Take 300 mg by mouth 3 (three) times a day 1 01/26/20 22 inFLIXimab (REMICADE) 100 mg injectionIndications: Crohn's Disease Infuse 120 mL (1,200 mg total) into a venous catheter every 4 (four) weeks Infused at: CAM 5C Frequency change as of 06/30/21 r/t low IFX drug level from 06/07/21. 1 01/14/20 23 iron,carbonyl-vitamin C 65 mg iron- 125 mg tablet,delayed release (DR/EC) Take by mouth 21 loperamide (IMODIUM) 0.133 mg/mL solution Take by mouth 0 03/17/19 22 metoprolol XL (TOPROL-XL) 50 mg extended release tablet Take by mouth 6 11/18/19 21 ondansetron ODT (ZOFRAN-ODT) 4 mg disintegrating tablet Take 4 mg by mouth every 8 (eight) hours as needed 8 01/17/20 21 sildenafiL, pulm.hypertension, (REVATIO) 20 mg tablet Take 5 mg by mouth as needed 4 01/26/20 22 documented as of this encounter Discharge Disposition Disposition Code Departure Means Destination Discharge to home or self care documented in this encounter H&P Notes * Julia Moreno MD - 11/13/2020 11:35 AM CDT Pre Endoscopy History and Physical Bridgette Edwards is a 60 y.o. male who is here for Procedure(s): POUCHOSCOPY The indication(s) for the procedure(s): ibd. Past Medical History: Diagnosis Date ??? GERD (gastroesophageal reflux disease) ??? HTN (hypertension) ??? Liver hemangioma ??? Nephrolithiasis Past Surgical History: Procedure Laterality Date ??? ABDOMINAL WALL DEFECT REPAIR 2013 reconstruction ??? CYSTOSCOPY W/ LASER LITHOTRIPSY Right 2017 ??? HEMANGIOMA EXCISION 2016 liver ??? RESTORATIVE PROCTOCOLECTOMY 2002 J-pouch ??? VENTRAL HERNIA REPAIR 06/2009, 07/2009 Social History Tobacco Use ??? Smoking status: Never Smoker Substance Use Topics ??? Alcohol use: Not on file Family History Problem Relation Age of Onset ??? Cancer Father ??? Hypertension Father Allergies Allergen Reactions ??? Fruit Extracts Hives Tomatoes and oranges ??? Iron Rash ??? Humphrey Juice Hives ??? Humphrey Oil Hives ??? Sulfa (Sulfonamide Antibiotics) Hives and Rash ??? Tomato Hives ??? Sulfur Unknown Cerner Allergy Text Annotation: Sulfur ??? Azathioprine Other (See comments) pancreatitis Prior to Admission medications Medication Sig Start Date End Date Taking? Authorizing Provider acetaminophen-codeine (TYLENOL with CODEINE #3) 300-30 mg per tablet Take 1-2 tablets by mouth every 4 (four) hours as needed Patient not taking: Reported on 08/07/2020 04/23/11 Amie Odonnell MD allopurinoL (ZYLOPRIM) 100 mg tablet Take 100 mg by mouth 2 (two) times a day 11/29/19 Amie Odonnell MD chlorthalidone 25 mg tablet Take 25 mg by mouth daily 11/20/19 Amie Odonnell MD cholecalciferol (Vitamin D3) 2000 unit tablet Take 1 tablet (2,000 Units total) by mouth daily 03/27/20 Julia Moreno MD esomeprazole DR (NexIUM) 20 mg capsule 02/05/20 Amie Odonnell MD fenofibrate nanocrystallized (TRICOR) 48 mg tablet Take 48 mg by mouth daily 10/14/20 Amie Odonnell MD gabapentin (NEURONTIN) 300 mg capsule TAKE 1 CAPSULE BY MOUTH 4 TIMES DAILY. 10/23/20 mAie Odonnell MD inFLIXimab (REMICADE) 100 mg injection Infuse 600 mg into a venous catheter as directed 5 mg/kg at weeks 0,2,6 then every 8 weeks at CAM 5C Amie Odonnell MD iron,carbonyl-vitamin C 65 mg iron- 125 mg tablet,delayed release (DR/EC) Take by mouth Amie Odonnell MD Klor-Con M20 20 mEq CR tablet Take 20 mEq by mouth 3 (three) times a day 01/12/20 Amie Odonnell MD loperamide (IMODIUM) 0.133 mg/mL solution Take by mouth Amie Odonnell MD metoprolol XL (TOPROL-XL) 50 mg extended release tablet Take by mouth 06/09/15 Amie Odonnell MD cvmwhcpfpush-yvxrztka-lzuuyc tablet Take 1 tablet by mouth daily Amie Odonnell MD ondansetron ODT (ZOFRAN-ODT) 4 mg disintegrating tablet Take 4 mg by mouth every 8 (eight) hours asneeded 04/05/17 Amie Odonnell MD sildenafiL, pulm.hypertension, (REVATIO) 20 mg tablet 5 mg 07/23/13 Amie Odonnell MD testosterone cypionate (DEPO-TESTOTERONE) 200 mg/mL injection INJECT O.5 ML (100MG) INTRAMUSCULARLYONCE EVERY 2 WEEKS 10/07/20 Amie Odonnell MD budesonide EC (ENTOCORT EC) 3 mg 24 hr capsule Take by mouth Patient not taking: Reported on 08/07/2020 06/09/15 11/13/20 Amie Odonnell MD cefdinir (OMNICEF) 300 mg capsule TAKE 1 CAPSULE (300 MG TOTAL) BY MOUTH 2 (TWO) TIMES A DAY FOR 7 DAYS , THEN TAKE 1 CAP DAILY Patient not taking: Reported on 08/07/2020 05/12/20 11/13/20 Julia Moreno MD citalopram (CeleXA) 20 mg tablet 10 mg Patient not taking: Reported on 08/07/2020 08/03/13 11/13/20 Amie Odonnell MD folic acid-vit B6-vit B12 2.2-25-1 mg tablet 03/03/17 11/13/20 Amie Odonnell MD gabapentin (NEURONTIN) 100 mg capsule Take 100 mg by mouth daily 11/13/20 Amie Odonnell MD HYDROcodone-acetaminophen (NORCO) 5-325 mg per tablet Take 1-2 tablets by mouth every 6 (six) hoursas needed Patient not taking: Reported on 08/07/2020 08/12/17 11/13/20 Amie Odonnell MD methotrexate 2.5 mg tablet TAKE 6 TABLETS (15 MG TOTAL) BY MOUTH EVERY 7 DAYS Patient not taking: Reported on 08/07/2020 07/21/17 11/13/20 Amie Odonnell MD omeprazole (PriLOSEC) 20 mg capsule Take 40 mg by mouth daily Patient not taking: Reported on 08/07/2020 11/26/19 11/13/20 Amie Odonnell MD phenazopyridine (PYRIDIUM) 200 mg tablet Take 200 mg by mouth 3 (three) times a day Patient not taking: Reported on 08/07/2020 08/31/13 11/13/20 Amie Odonnell MD predniSONE (DELTASONE) 10 mg tablet TAKE 4 TAB BY MOUTH DAILY X2 DAYS 3 TAB DAILY X 2 DAYS, 2 TAB DAILY X 2 DAY, 1 TAB DAILY X 2 DAYS. Patient not taking: Reported on 08/07/2020 12/19/19 11/13/20 Amie Odonnell MD tamsulosin (FLOMAX) 0.4 mg extended release capsule Take by mouth daily 11/26/19 11/13/20 Amie Odonnell MD testosterone 1.62 % (40.5 mg/2.5 gram) gel in packet None Entered 06/09/15 11/13/20 Amie Odonnell MD valACYclovir (VALTREX) 1 gram tablet Take 1,000 mg by mouth 3 (three) times a day Patient not taking: Reported on 08/07/2020 12/19/19 11/13/20 Amie Odonnell MD Review of Systems A pertinent, focused review of systems was completed and negative, except as noted above. OBJECTIVE: Vitals: Vitals: 11/13/20 0935 Weight: 116.6 kg (257 lb) Height: 182.9 cm (6') Physical Exam: Airway: No significant abnormality. Cardiac: [...] Procedure Notes * Julia Moreno MD - 11/14/2020 8:48 AM CDTAssociated Order(s): POUCHOSCOPY ENDOSCOPY LAB Patient Name: Bridgette Edwards Procedure Date: 11/14/2020 8:48 AM Date of : 1960 Admit Type: Outpatient Age: 60 Gender: Male Attending MD: Julia Moreno M.D. Room: [facility] ENDOSCOPY ROOM 01 Note Status: Finalized Procedure: Pouchoscopy Indications: Inflammatory bowel disease, (Crohn's Disease) s/p TPC with IPAA on IFX Providers: Julia Moreno M.D. Referring MD: Scott Randle NO CURRENT ADDRESS, D.O. Medicines: Monitored Anesthesia Care Complications: No immediate [...] and oxygen saturations were monitored continuously. The [id number] was introduced through the ileoanal anastomosis via the anus and advanced to the ileoanal pouch and into the meghna-terminal ileum. The procedure was performed without difficulty. The patient tolerated the procedure well. The quality of the bowel preparation was good. Findings: The perianal and digital rectal examinations were normal. Pertinent negatives include no palpable rectal lesions. The rectal cuff appeared normal. Biopsies were taken with a cold forceps for histology. The j-pouch appeared normal. The afferent limb contained a few ulcers. No bleeding was present. The afferent limb contained scattered pseudopolyps with associated ulcer at the tip. One polyp taht was close to the pouch inlet and had a more adenomatous appearance was removed with a hot snare. Resection and retrieval were complete. Impression: - The rectal cuff is normal. Biopsied. - The j-pouch is normal. - A few ulcers in the afferent limb. - Pseudopolyps in the afferent limb. Resected and retrieved. Recommendation: - Return to GI clinic as previously scheduled. - Check IFX trough Attending Participation: I personally performed the entire procedure. Electronically signed by Julia Moreno M.D. Julia Moreno M.D. 11/14/2020 9:12:14 AM Number of Addenda: 0 Note Initiated On: 11/14/2020 8:48 AM documented in this encounter Miscellaneous Notes * Perioperative Nursing Note - Charissa Esteves RN - 11/14/2020 9:27 AM CDT Joanne instructed with AVS and given copy * Pre-Procedure Instructions - Priyanka Loyola RN - 11/13/2020 9:42 AM CDT Please follow any and all instruction you were given re:Bowel prep When you arrive, please come to [facility] hospital entrance. As you enter there will be an information desk, let them know you are here for a procedure and theywill direct you to the registration area. Once registered one of the endoscopy nurses will come to get you ready for your procedure Dress comfortable, please leave any valuables at home, jojo. mccauley, jewelry For your safety due to the anesthesia, you will not be able to drive. Please have a ride arranged to and from hospital with a responsible adult- someone who knows you andcan care for you At any entrance to the building you will be screened for Covid symptoms, Covid exposure, and have your temp. taken. You are required to wear a mask at all times I want to reassure you all staff are screened as we come in, and we do wear mask at all times. You are allowed one person to accompany you into the building. This person will be screened and required to wear a mask at all times If this person(your carry all driver)chooses not to come inside or will be picking you up after your procedure with anesthesia, for your safety we will confirm your ride home by phone call prior to your procedure start time documented in this encounter Plan of Treatment Not on file documented as of this encounter Procedures Procedure Name Priority Date/Time Associated Diagnosis Comments SURGICAL PATHOLOGY Routine 11/14/2020 9: 02 AM CDT Crohn's disease of ileum with complication (CMS/HCC) (HCC) ENDO ADD ON POUCHOSCOPY BIOPSY 11/14/2020 8:52 AM CDT Crohn's disease of ileum with complication (CMS/HCC) (HCC) ENDO POUCHOSCOPY REMOVAL TISSUE VIA SNARE 11/14/2020 8:52 AM CDT Crohn's disease of ileum with complication (CMS/HCC) (HCC) POUCHOSCOPY 11/14/2020 8:48 AM CDT documented in this encounter Results * Surgical pathology (11/14/2020 9:02 AM CDT) Tissue (Polyp(s), colon/colorectal, esophageal, gastric) 11/14/2020 9:02 AM CDT Tissue (Rectal biopsy) 11/14/2020 9:04 AM CDT Narrative PATHOLOGY [facility] - 11/18/2020 3:51 PM CDT EPIC results best viewed via link to PDF [facility] [place] [address] Note to Patients: This report may contain a detailed description of human tissue sent by a health care provider to the laboratory for pathologic evaluation. The content of this report is essential for diagnosis and may provide important critical findings. This information may be unfamiliar to patients to review without a medical professional present. It is advised that the patient review this report in the presence of a health care provider who can answer questions and explain the details. SURGICAL PATHOLOGY REPORT FINAL Patient Name: ?? BRIDGETTE EDWARDS Gender: ??M : ??1960 (Age: 60) Address: ??[address] [place] [address] Hospital #: ??[id number] Taken:11/14/2020 Received:11/14/2020 Reported: 11/18/2020 Patient Type: WC SDS Client ?[facility] Service: Gastro Location: [facility] Physician(s): ??Julia Moreno M.D. Mike Mitchell M.D. Scott Randle M.D. Diagnosis: A. ??Small bowel, afferent limb polyp, snare ? - Chronic active ileitis with pyloric metaplasia and ulcer with acutely inflamed granulation tissue - CMV immunostain is negative B. ??Large bowel, rectal cuff, biopsy ? - Mucosa with lamina propria chronic inflammation with mild eosinophilia and focal cryptitis kxk/11/16/2020 10:10 By this signature, I attest that the above diagnosis is based upon my personal examination of the slides(and/or other material indicated in the diagnosis). Sienna Tobias M.D. Report Electronically Reviewed and Signed Out By ??Sienna Tobias M.D. 11/18/2020 15:51:48 Microscopic Description and Comment: Microscopic examination substantiates the above cited diagnosis. ?? An immunostain for CMV (single antibody procedure with appropriate staining controls) was performed on part A and is negative for viral inclusions. Joy Oviedo M.D. History: The patient is a 60-year-old man with Crohn's disease of ileum with complication. ??Operative procedure: Pouchoscopy. Specimen(s) Received: A: Afferent limb polyp snare B: Rectal cuff bx Gross Description: The specimens are received in two formalin filled containers each labeled with the patient's identifiers. ? A. ??Labeled afferent limb polyp snare. ??It holds a single irregular arredondo soft fragment measuring 1.0 x 0.7 x 0.2 cm. ??Labeled A1. ??Jar 0. B. ??Labeled rectal cuff biopsy. ??It holds two irregular arredondo soft tissue fragments measuring 0.7 x 0.5 x 0.1 cm in aggregate. ??Labeled B1. ??Jar 0. cnewho/11/14/2020 13:54 PA(s): Kala Hernandez, [place], [place] ([facility]) By this signature, I attest that the above diagnosis is based upon my personal examination of the slides(and/or other material). Addenda/Procedures The performance characteristics of some immunohistochemical stains, fluorescence in-situ hybridization tests and immunophenotyping by flow cytometry cited in this report (if any) were determined by the Surgical Pathology and Flow Cytometry Departments at [facility] as part of an ongoing quality control engineering technician program and in compliance with federally mandated regulations drawn from the Clinical Laboratory Improvement Act of 1988 (CLIA '88). ??Some of these tests rely on the use of analyte specific reagents and are subject to specific labeling requirements by the US Food and Drug Administration. ??Such diagnostic tests may only be performed in a facility that is certified by the Department of Health and Human Services as a [facility] laboratory under CLIA '88. ??The FDA has determined that such clearance or approval is not necessary. ??This test is used for clinical purposes. ??It should not be regarded as investigational or for research. ??Nevertheless, federal rules concerning the medical use of analyte specific reagents require that the following disclaimer be attached to the report: This test was developed and its performance characteristics determined by the Surgical Pathology and Flow Cytometry Departments of [facility]. ??It has not been cleared or approved by the U. S. Food and Drug Administration. IMAGES AND SCANNED DOCUMENTS, IF INCLUDED, ONLY VIEWABLE IN PDF VERSION OF REPORT us Julia Moreno MD LAB PATHOLOGY ORDER MAGO Final Result PATHOLOGY [facility] [phone] * POUCHOSCOPY (11/14/2020 8:48 AM CDT) Anatomical Region Laterality Modality Other Narrative Procedure Note Julia Moreno MD - 11/14/2020 8:48 AM CDT ENDOSCOPY LAB Patient Name: Bridgette Edwards Procedure Date: 11/14/2020 8:48 AM Date of : 1960 Admit Type: Outpatient Age: 60 Gender: Male Attending MD: Julia Moreno M.D. Room: [facility] ENDOSCOPY ROOM 01 Note Status: Finalized Procedure: Pouchoscopy Indications: Inflammatory bowel disease, (Crohn's Disease) s/pTPC with IPAA on IFX Providers: Julia Moreno M.D. Referring MD: Scott Randle NO CURRENT ADDRESS, D.O. Medicines: Monitored Anesthesia Care Complications: No immediate [...] and oxygen saturations were monitored continuously. The [id number] was introduced through theileoanal anastomosis via the anus and advanced to theileoanal pouch and into the meghna-terminal ileum. Theprocedure was performed without difficulty. The patient tolerated the procedure well. The quality of thebowel preparation was good. Findings: The perianal and digital rectal examinations were normal. Pertinent negatives include no palpable rectal lesions. The rectal cuff appeared normal. Biopsies were taken with a coldforceps for histology. The j-pouch appeared normal. The afferent limb contained a few ulcers. No bleeding was present. The afferent limb contained scattered pseudopolyps with associatedulcer at the tip. One polyp taht was close to the pouch inlet and had george adenomatous appearance was removed with a hot snare. Resection and retrieval were complete. Impression: - The rectal cuff is normal. Biopsied. - The j-pouch is normal. - A few ulcers in the afferent limb. - Pseudopolyps in the afferent limb. Resected and retrieved. Recommendation: - Return to GI clinic as previously scheduled. - Check IFX trough Attending Participation: I personally performed the entire procedure. Electronically signed by Julia Moreno M.D. Julia Moreno M.D. 11/14/2020 9:12:14 AM Number of Addenda: 0 Note Initiated On: 11/14/2020 8:48 AM us Julia Moreno MD ENDOSCOPY PROCEDURE S Final Result documented in this encounter Visit Diagnoses Diagnosis Crohn's disease of ileum with complication (HCC) documented in this encounter Administered Medications Inactive Administered Medications - up to 3 most recent administrations Medication Order MAR Action Action Date Dose Rate Site sodium chloride 0.9% flush 0.5-20 mL 0.5-20 mL, intra-catheter, As needed, line care, Starting on Tue11/14/20 at 0733, Pre-Procedure (GI), Flush volume based on line type and size. Flush before and after each use. , Indications: FlushingIndications:Flushing sodium chloride 0.9% infusion 30 mL/hr, intravenous, Continuous, Starting on Tue11/14/20 at 0815 Restarted 11/14/2020 9:06 AM CDT Rate/Dose Verify 11/14/2020 8:52 AM CDT 30 mL/h r New Bag 11/14/2020 8:12 AM CDT 30 mL/hr 30 mL/hr documented in this encounter Discontinued Medications Medication Sig Discontinue Reason Start Date End Da te gabapentin (NEURONTIN) 100 mg capsule Take 100 mg by mouth daily Alternate therapy 11/13/2020 budesonide EC (ENTOCORT EC) 3 mg 24 hr capsule Take by mouth Alternate therapy 06/09/2015 021 cefdinir (OMNICEF) 300 mg capsuleIndications:Crohn' s 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 (CMS/HCC) (HCC) TAKE 1 CAPSULE (300 MG TOTAL) BY MOUTH 2 (TWO) TIMES A DAY FOR 7 DAYS , THEN TAKE 1 CAP DAILY Alternate therapy 05/12/2020 11/13/2020 citalopram (CeleXA) 20 mg tablet 10 mg Alternate therapy 08/03/2013 11/13/2020 folic acid-vit B6-vit B12 2.2-25-1 mg tablet Alternate therapy 03/03/2017 11/13/2020 HYDROcodone-acetaminophen (NORCO) 5-325 mg per tablet Take 1-2 tablets by mouth every 6 (six) hours as needed Alternate therapy 08/12/2017 11/13/2020 methotrexate 2.5 mg tablet TAKE 6 TABLETS (15 MG TOTAL) BY MOUTH EVERY 7 DAYS Alternate therapy 07/21/2017 11/13/2020 omeprazole (PriLOSEC) 20 mg capsule Take 40 mg by mouth daily Alternate therapy 11/26/2019 11/13/2020 phenazopyridine (PYRIDIUM) 200 mg tablet Take 200 mg by mouth 3 (three) times a day Alternate therapy 08/31/2013 11/13/2020 predniSONE (DELTASONE) 10 mg tablet TAKE 4 TAB BY MOUTH DAILY X2 DAYS 3 TAB DAILY X 2 DAYS, 2 TAB DAILY X 2 DAY, 1 TAB DAILY X 2 DAYS. Alternate therapy 12/19/2019 11/13/2020 testosterone 1.62 % (40.5 mg/2.5 gram) gel in packet None Entered Alternate therapy 06/09/2015 11/13/2020 tamsulosin (FLOMAX) 0.4 mg extended release capsule Take by mouth daily Alternate therapy 11/26/2019 11/13/2020 valACYclovir (VALTREX) 1 gram tablet Take 1,000 mg by mouth 3 (three) times a day Alternate therapy 12/19/2019 11/13/2020 documented as of this encounter Historical Medications * This list may reflect changes made after this encounter. testosterone cypionate (DEPO-TESTOTERONE) 200 mg/mL injectionIndications: Androgen Deficiency Inject 0.5 mL (100 mg total) into the muscle as instructed every 14 (fourteen) days gabapentin (NEURONTIN) 300 mg capsuleIndications:Ne uropathic Pain Take 300 mg by mouth 3 (three) times a day 01/26/20 22 fenofibrate nanocrystallized (TRICOR) 48 mg tablet Take 48 mg by mouth daily 01/17/20 21 added in this encounter Active and Recently Administered Medications Times are shown in CDT. Continuous Medication Order 11/12/2020 11/13/2020 11/14/2020 sodium chloride 0.9% infusion 30 mL/hr, intravenous, Continuous, Starting on Tue11/14/20 at 0815 0812 (New Bag - Prov ider: Azra Dye RN)0852 (Rate/Dose Verify - Provider: Latrice Webb MD)0905 (Paused - Provider: Latrice Webb MD - Comment: Switch to gravity)0906 (Restarted - Provider: Latrice Webb MD) PRN Medication Order 11/12/2020 11/13/2020 11/14/2020 sodium chloride 0.9% flush 0.5-20 mL 0.5-20 mL, intra-catheter, As needed, line care, Starting on Tue11/14/20 at 0733, Pre-Procedure (GI), Flush volume based on line type and size. Flush before and after each use. , Indications: Flushing 0742 (APR Hold - Pro vider: Automatic Transfer Provider - Reason: Patient not available)1437 (APR Unhold - Provider: Automatic Discharge Provider) documented in this encounter Orders Medications Ordered That Po ht Not Have Been Administered Count Last Ordered Date First Ordered Date sodium chloride 0.9% flush 0.5-20 mL 1 09/2020 documented in this encounter Care Teams Finance Vice President Relationship Specialty Start Date End Date Scott Randle DO PCP - General 11/14/20 01/15/21 documented as of this encounter
--- OUTSIDE RECORDS SUMMARY | 2024-01-30 08:19 | XMS_ITS | Encounter Summary ---
Author Organization [facility] Address [address] [place] [address] Phone Care Team Providers Care Oncology Physician Assistant Name Role Phone Scott Randle DO Primary Care Provider [phone] Reason for Visit * Episode Based Medications (Routine) - Closed Specialty Diagnoses / Procedures Referred By Contabhishek t Referred To Contact Diagnoses Crohn's disease of ileum with complication (HCC) Procedures [place] INFLIXIMAB NOT BIOSIMIL 10MG Julia Moreno MD [address] [place] [address] Phone: tel: fax: [facility] Infusion Therapy [facility] 5th [place] [address] [place] [address] Phone: tel: fax: Referral ID Status Reason Start Date Expiration Date Visits Re quested Visits Authorized [id number] Closed 08/31/2022 09/01/2023 26 26 Encounter Details Date Type Department Care Team (Late st Contact Info) Description 11/07/2020 9:30 AM CDT Infusion [facility] Infusion Therapy [address] [place] [address] 5th [place] [address] Crohn's disease of ileum with complication (CMS/HCC) (HCC) (Primary Dx) Social History Tobacco Use Types Packs/Day Years Used Date Smoking Tobacco: Never Sex and Gender Information Value Date Recorded Sex Assigned at Not on file 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 VSS. Tolerated infusion without adverse reaction. Follow up scheduled in 8 weeks. No concerns. documented in this encounter Plan of Treatment Scheduled Orders Name Type Priority Associated Diagnoses Orde r Schedule CBC with auto differential Lab Routine Crohn's disease of ileum with complication (CMS/HCC) (HCC) 1 Occurrences starting 11/07/2020 until 11/07/2021 documented as of this encounter Procedures Procedure Name Priority Date/Time Associated Diagnosis Comments CBC WITH DIFF, BJ Routine 11/07/2020 9:3 5 AM CDT Crohn's disease of ileum with complication (CMS/HCC) (HCC) HEPATIC FUNCTION PANEL Routine 11/07/2020 9:35 AM CDT Crohn's disease of ileum with complication (CMS/HCC) (HCC) documented in this encounter Results * (ABNORMAL) CBC with Diff, BJ (11/07/2020 9:35 AM CDT) White Blood Count 6.30 3.80 - 9.90 K/cumm [facility] Comment: Red Blood Count 5.23 4.30 - 5.80 M/cumm [facility] Hemoglobin 16.5 13.0 - 17.5 g/dL [facility] Hematocrit 45.9 38.9 - 50.3 % [facility] Platelet Count 218 150 - 400 K/cumm [facility] MCV 87.8 81.3 - 96.4 fl [facility] MCH 31.5 27.1 - 33.3 pg [facility] MCHC 35.9(H) 32.3 - 35.7 g/dL [facility] MPV 10.5 9.1 - 12.3 fl [facility] RDW SD 38.8 35.7 - 48.1 fL [facility] RDW CV 12.1 11.1 - 14.9 % [facility] Neut Abs 3.80 1.70 - 6.50 K/cumm [facility] Imm Gran Abs 0.00 0.00 - 0.10 K/cumm [facility] Lymph Abs 1.70 0.80 - 3.30 K/cumm [facility] [place] Abs 0.50 0.20 - 0.80 K/cumm [facility] Eos Abs 0.10 0.00 - 0.50 K/cumm [facility] Baso Abs 0.00 0.00 - 0.10 K/cumm [facility] Neut Pct 61.6 % [facility] Imm Gran Pct 0.6 % [facility] Lymph Pct 27.8 % [facility] [place] Pct 8.0 % [facility] Eos Pct 1.4 % [facility] Baso Pct 0.6 % [facility] NRBC Abs 0.00 0.00 - 0.01 K/cumm [facility] 11/07/2020 9:35 AM CDT 11/07/2020 10:08 AM CDT Narrative [facility] - 11/07/2020 1:01 PM CDT Testing performed at [facility] - [address] [place] [address]. us Julia Moreno MD LAB BLOOD ORDERABLE S Final Result [facility] * Hepatic function panel (11/07/2020 9:35 AM CDT) Pathologist [facility] Direct Bilirubin 0.12 0.00 - 0.30 mg/dL [facility] AST (SGOT) 27 11 - 47 IU/L [facility] ALT (SGPT) 34 6 - 53 IU/L [facility] Alk Phos, Total 50 35 - 129 IU/L [facility] Albumin 4.7 3.5 - 5.2 g/dL [facility] Total Bilirubin 0.42 0.20 - 1.40 mg/dL [facility] Total Protein 7.5 6.1 - 8.4 g/dL [facility] Blood specimen (specimen) 11/07/2020 9:35 AM CDT 11/07/2020 10:08 AM CDT us Julia Moreno MD LAB [...] 500 mg 500 mg, oral, Once, On Tue11/07/20 at 1015, For 1 dose, Please give 30 minutes prior to infusion for infusion reaction prophylaxis.Indications:Crohn's disease of ileum with complication (HCC) Given 11/07/2020 9:40 AM CDT 500 mg diphenhydrAMINE (BENADRYL) tab/cap 25 mg 25 mg, oral, Once, On Tue11/07/20 at 1015, For 1 dose, Please give 30 minutes prior to infusion for infusion reaction prophylaxis.Indications:Crohn's disease of ileum with complication (HCC) Given 11/07/2020 9:40 AM CDT 25 mg inFLIXimab (REMICADE) 600 mg in sodium chloride 0.9% 250 mL IVPB 600 mg, intravenous, Administer over 2 Hours, Once, On Tue11/07/20 at 1015, For 1 dose, Infuse with filter tubing MAINTENANCE DOSE: Administer every 8 weeks starting on week 14. For 200 ml lnititate therapy at 10mI/hour [...] completed. Use 1.2 micron filter or less, low-sorbing.Indications:Crohn's disease of ileum with complication (HCC) New Bag 11/07/2020 9:45 AM CDT 600 mg documented in this encounter Orders Nursing Count Last Ordered Date First Orde red Date HEIGHT AND WEIGHT 1 11/07/2020 ONCBCN NURSING COMMUNICATION [id number] 1 VITAL SIGNS INTRA-INFUSION 1 11/07/2020 VITAL SIGNS POST-INFUSION 1 11/07/2020 documented in this encounter Care Teams Oncology Physician Assistant Relationship Specialty Start Date End Date Scott Randle DO PCP - General Family Medicine 02/06/20 11/13/20 documented as of this encounter
--- OUTSIDE RECORDS SUMMARY | 2024-01-30 08:19 | XMS_ITS | Encounter Summary ---
Author Organization [facility] Address [address] [place] [address] Phone Care Team Providers Care Promotion Manager Name Role Phone Scott Randle DO Primary Care Provider [phone] Encounter Details Date Type Department Care Team (Late st Contact Info) Description 11/07/2020 10:00 AM CDT Lab [facility] Endocrinology Metabolism and Lipid [address] [facility] 5th [place] [address] [place] [address] Crohn's disease of ileum with complication (CMS/HCC) (HCC) Social History Tobacco Use Types Packs/Day Years Used Date Smoking Tobacco: Never Sex and Gender Information Value Date Recorded Sex Assigned at Not on file Legal Sex Male 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
--- OUTSIDE RECORDS SUMMARY | 2024-01-30 08:19 | XMS_ITS | Encounter Summary ---
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 Submitted to pre-cert team to obtain new auth prior to pt's next dose which is scheduled for 03/02/21. Infusion team and RMA both notified. Reminder set for follow up. Portal msg sent topt. NATOR documented in this encounter Plan of Treatment Not on file documented as of this encounter Visit Diagnoses Not on filedocumented in this encounter Care Teams Hardware Assembler Relationship Specialty Start Date End Date Scott Randle DO PCP - General 11/14/20 01/15/21 documented as of this encounter
--- OUTSIDE RECORDS SUMMARY | 2024-01-30 08:19 | XMS_ITS | Encounter Summary ---
Author Organization [facility] Address [address] [place] [address] Phone Care Team Providers Care Catering Sous Chef Name Role Phone Scott Randle DO Primary Care Provider [phone] Encounter Details Date Type Department Care Team (Late st Contact Info) Description 01/05/2021 10:20 AM SAFETY NET MAKER Lab [facility] Endocrinology Metabolism and Lipid [address] [facility] 5th [place] [address] [place] [address] Crohn's disease of ileum with complication (CMS/HCC) [...] on file Legal Sex Male 8:42 AM SAFETY NET MAKER Gender Identity Not on file Sexual Orientation Straight 04/01/2020 8: 42 PM SAFETY NET MAKER documented as of this encounter Plan of Treatment Not on file documented as of this encounter Visit Diagnoses Diagnosis Crohn's disease of ileum with complication (HCC) documented in this encounter Care Teams Catering Sous Chef Relationship Specialty Start Date End Date Scott Randle DO PCP - General 11/14/20 01/15/21 documented as of this encounter
--- OUTSIDE RECORDS SUMMARY | 2024-01-30 08:19 | XMS_ITS | Encounter Summary ---
Author Organization [facility] Address [address] [place] [address] Phone Care Team Providers Care Aircraft Magneto Mechanic Name Role Phone Scott Randle DO Primary Care Provider [phone] Mike Mitchell MD Primary Care Provider [phone] Reason for Visit * Reason Onset Date Comments Infusion Authorization 01/12/2021 Remicade dosage change Encounter Details Date Type Department Care Team (Late st Contact Info) Description 01/12/2021 Documentation [facility] Gastroenterology [address] [facility] 12th [place] [address] Miracle Costa RMA Infusion Authorization (Remicade dosage change ) Social History Tobacco Use Types Packs/Day Years [...] on file 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 Can you please obtain new auth? Will remain at Q8 weeks. (His next dose is scheduled for 03/02/21). ?? Infusion team - FYI. ?? Akeia - FYI. Can you please notify pt once we have the approval? ?? Thank you all! ER OPERATOR documented in this encounter Plan of Treatment Not on file documented as of this encounter Visit Diagnoses Not on filedocumented in this encounter Care Teams Aircraft Magneto Mechanic Relationship Specialty Start Date End Date Scott Randle DO PCP - General 11/14/20 01/15/21 Mike Mitchell MD PCP - General Family Practice 01/16/21 documented as of this encounter
--- OUTSIDE RECORDS SUMMARY | 2024-01-30 08:19 | XMS_ITS | Encounter Summary ---
Author Organization [facility] Healthcare Address [address] [place] [address] Care Team Providers Care Overhead Foreman Name Role Phone Scott Randle DO Primary Care Provider [phone] Reason for Visit * Reason Comments Black or Bloody Stool Encounter Details Date Type Department Care Team (Latest Contact Info) Description 11/16/2020 7:01 PM CDT - 11/17/2020 1:05 PM CDT Emergency [facility] [address] [place] [address] Kris Morales MD [address] [place] [address] Miguel Angel Rodriguez MD PhD [address] [place] [address] Irineo Rodrigues MD [address] [place] [address] Harvey Ford MD [address] [place] [address] Gastrointestinal hemorrhage, unspecified gastrointestinal hemorrhage type (Primary Dx) Discharge Disposition: Discharge to home [...] on file Legal Sex Male 8:42 AM WIRE CHIEF Gender Identity Not on file Sexual Orientation Straight 04/01/2020 8: 42 PM WIRE CHIEF documented as of this encounter Last Filed Vital Signs Vital Sign Reading Time Taken Comments Blood Pressure 144/86 11/17/2020 5:35 AM CDT Pulse 64 11/17/2020 5:35 AM CDT Temperature 36.5 ??C (97.7 ??F) 11/17/2020 5:35 AM CD T Respiratory Rate 16 11/17/2020 5:35 AM CDT Oxygen Saturation 96% 11/17/2020 5:35 AM CDT Inhaled Oxygen Concentration - - Weight 115.3 kg (254 lb 3.1 oz) 11/17/2020 2:00 AM CDT Height 182.9 cm (6') 11/17/2020 2:00 AM CDT Body Mass Index 34.47 11/17/2020 2:00 AM CDT documented in this encounter Discharge Diagnoses Diagnosis Ulcerative (chronic) proctitis with rectal bleeding (HCC) - ULCERATIVE (CHRONIC) PROCTITIS WITH RECTAL BLEEDING Essential (primary) hypertension - ESSENTIAL (PRIMARY) HYPERTENSION Unspecified essential hypertension Gastro-esophageal reflux disease without esophagitis - GASTRO-ESOPHAGEAL REFLUX DISEASE WITHOUT ESOPHAGITIS Contact with and (suspected) exposure to covid-19 - CONTACT WITH AND (SUSPECTED) EXPOSURE TO COVID-19 Allergy status to sulfonamides - ALLERGY STATUS TO SULFONAMIDES Hypokalemia - HYPOKALEMIA Hypopotassemia Other retirement (current) drug therapy - OTHER [facility] (CURRENT) DRUG THERAPY documented in this encounter Discharge Summaries * Ankur Victor MD PhD - 11/17/2020 12:22 PM CDT Inpatient Discharge Summary BRIEF OVERVIEW Admitting Provider: Miguel Angel Rodriguez MD PhD Discharge Provider: Harvey Ford MD Primary Care Physician at Discharge: Scott Randle [phone] Admission Date: 11/16/2020 Discharge Date: 11/17/2020 Admission Location: [facility] Problems/Diagnoses: Principal Problem: Gastrointestinal hemorrhage Resolved Problems: No resolved hospital problems. DETAILS OF HOSPITAL STAY Presenting Problem/History of Present Illness: Kris Spence is a 60 y.o. male with HTN, GERD, nephrolithiasis, crohn's disease here with hematochezia. ?? Patient was in his usual state of health until 2 days prior to admission when he had a pouchoscopy performed to assess his response to Remicade. On pouchoscopy, he was noted to have a few ulcers in the afferent limb and pseudopolyps which were resected. He also had a biopsy of the rectal cuff, which appeared normal. He was informed that he may have some bleeding after. ?? The night of the procedure, he noted red blood in his stool, the bowel, and when wiping. He proceeded to have his baseline 8-10 BMs each subsequent day, which are mostly watery, and each time he noted bright red blood in the bowel. He otherwise was asymptomatic, he went to play golf with his friends the day after the procedure which was notable only for increased fatigue versus normal. The day ofadmission (2 days post-procedure) he did endorse feeling lightheaded while bending over. His and he called the GI team, who recommended he come in to be evaluated. ?? Notably, he has no fevers, chills, chest pain, shortness of breath, abdominal pain. No nausea or vomiting. Has had normal PO intake. No urgency. No edema, no rashes. ?? In the ED, he was noted to be afebrile, pulse 60-70 (on metop) and BP stable. GI was consulted, they wanted to scope in AM and so patient was made npo at midnight. Labs notable for a Hgb of 15.2. Hospital Course: # BRBPR Patient with 2 days of bright red blood mixed with his bowel movements; has 8-10 daily (which is his baseline). Has no abdominal pain, endorses increased fatigue and one episode of lightheadedness, but otherwise is asymptomatic. DDx: post- procedural 2/2 biopsies vs ulcers identified on scope, low concern for crohn's flare. Given stability, normal Hgb, and length of symptoms, unlikely to be UGIB. BRBPR resolved spontaneouly following admission and Hgb was stable. GI was fine with d/c on 10/11 AM; did not recommend scope of the J pouch. # HTN Home regimen is chlorthalidone and metoprolol. Pt has no other indication for metoprolol per his recollection nor his chart records. Continue chlorthalidone and started lisinopril given his low potassium. Stopped metop given his lack of an indication for it. ?? # GERD On home omeprazole. Switched to protonix while inpatient. Active Issues Requiring Follow-up: ?? Repeat BMP s/p starting lisinopril Test Results Pending at Discharge: NA Operative Procedures Performed: NA Other Procedures: NA Pertinent Test Results: ?? Stable Hgb 14-15 Discharge Details Physical Exam at Discharge: Discharge Condition: stable Pulse: 64 Resp: 16 BP: 144/86 Temp: 36.5 ??C (97.7 ??F) Weight: 115.3 kg (254 lb 3.1 oz) Pertinent Exam Findings at Discharge: NA Discharge Disposition: Code Status at Discharge: full Discharge Instructions: You were hospitalized for GI bleeding. During your hospital course your hemoglobin was stable and your bleeding resolved. It is important to make the following medication changes and follow-up with your PCP after you leave the hospital to discuss management of your blood pressure medicines and havea BMP drawn to monitor your potassium. Please START the following medication: Lisinopril (this should help with your low potassium levels) Please STOP the following medication: Metoprolol It was our pleasure to take care of you while you were in the hospital, Mr. Spence. Take care! Activity Instructions Discharge activity: Resume normal activity Discharge Medications: Current Medications TAKE these medications allopurinoL 100 mg tablet Take 100 mg by mouth 2 (two) times a day Commonly known as: ZYLOPRIM chlorthalidone 25 mg tablet Take 25 mg by mouth daily cholecalciferol 2000 unit tablet Take 1 tablet (2,000 Units total) by mouth daily Commonly known as: Vitamin D3 esomeprazole DR 20 mg capsule Commonly known as: NexIUM fenofibrate nanocrystallized 48 mg tablet Take 48 mg by mouth daily Commonly known as: TRICOR gabapentin 300 mg capsule TAKE 1 CAPSULE BY MOUTH 4 TIMES DAILY. Commonly known as: NEURONTIN inFLIXimab 100 mg injection Infuse 600 mg into a venous catheter as directed 5 mg/kg at weeks 0,2,6 then every 8 weeks at CAM 5C Commonly known as: REMICADE iron,carbonyl-vitamin C 65 mg iron- 125 mg tablet,delayed release (DR/EC) Take by mouth Klor-Con M20 20 mEq CR tablet Take 20 mEq by mouth 3 (three) times a day Generic drug: potassium chloride ER lisinopriL 10 mg tablet Take 1 tablet (10 mg total) by mouth daily Commonly known as: PRINIVIL,ZESTRIL Start taking on: November 18, 2020 loperamide 0.133 mg/mL solution Take by mouth Commonly known as: IMODIUM rdjfubxbphxp-rmaszkpt-xuqxat tablet Take 1 tablet by mouth daily ondansetron ODT 4 mg disintegrating tablet Take 4 mg by mouth every 8 (eight) hours as needed Commonly known as: ZOFRAN-ODT sildenafiL (pulm.hypertension) 20 mg tablet 5 mg Commonly known as: REVATIO testosterone cypionate 200 mg/mL injection INJECT O.5 ML (100MG) INTRAMUSCULARLY ONCE EVERY 2 WEEKS Commonly known as: DEPO-TESTOTERONE Outpatient Follow-Up: Future Appointments Date Time Provider Department Center 01/05/2021 9:30 AM IM INF[facility] 5, [facility] INF [facility] 02/19/2021 10:00 AM Julia Moreno MD GI [facility] 8C [facility] Cosigned by Harvey Ford MD at 11/17/2020 7:10 PM CDT documented in this encounter Discharge Instructions * Discharge Instructions* Ankur Victor MD PhD - 11/17/2020 12:02 PM CDT You were hospitalized for GI bleeding. During your hospital course your hemoglobin was stable and your bleeding resolved. It is important to make the following medication changes and follow-up with your PCP after you leave the hospital to discuss management of your blood pressure medicines and havea BMP drawn to monitor your potassium. Please START the following medication: Lisinopril (this should help with your low potassium levels) Please STOP the following medication: Metoprolol It was our pleasure to take care of you while you were in the hospital, Mr. Spence. Take care! documented in this encounter Medications at Time [...] as instructed every 14 (fourteen) days 1 cholecalciferol (Vitamin D3) 2000 unit tabletIndications:Low serum [...] tablet,delayed release (DR/EC) Take by mouth 21 lisinopriL (PRINIVIL,ZESTRIL) 10 mg tablet Take 1 tablet (10 mg total) by mouth daily 30 tablet 11 01/26/20 22 loperamide (IMODIUM) 0.133 mg/mL solution Take by mouth 0 03/17/19 22 ondansetron ODT (ZOFRAN-ODT) 4 mg disintegrating tablet Take 4 mg by mouth every 8 (eight) hours as needed 8 01/17/20 21 sildenafiL, pulm.hypertension, (REVATIO) 20 mg tablet Take 5 mg by mouth as needed 4 01/26/20 22 documented as of this encounter Ordered Prescriptions Prescription Sig Dispense Quantity Refills Last Filled Start Date End Date lisinopriL (PRINIVIL,ZESTRIL) 10 mg tablet Take 1 tablet (10 mg total) by mouth daily 30 tablet 11 11/18/2020 01/25/2022 documented in this encounter Discharge Disposition Disposition Code Departure Means Destination Discharge to home or self care documented in this encounter Progress Notes * Cirilo Gutiérrez MD PhD - 11/17/2020 1:05 PM CDT Transfusion Medicine Blood Bank Note Patient Information: ABO/Rh: A positive Antibody screen: Positive Previous antibodies: No known antibodies Antibodies identified: anti-E Additional testing performed: None Relevant Patient History: Kris Spence is a 60 year-old male with a past medical history significant for Crohn's disease onRemicade (infliximab) who was admitted for bleeding s/p pouchoscopy. This patient has no history of transfusion of blood products in our system. Testing Information: The antibody screen was positive. Antibody identification demonstrated antibodies against the E antigen in the patient???s plasma. Additional testing was not performed. All other common, clinically significant antibodies have been ruled out. Clinical Relevance: Anti-E antibodies have been implicated in hemolytic transfusion reactions with extravascular hemolysis and hemolytic disease of the fetus and .Therefore, anti-E antibodies are generally considered to be clinically significant. Presence of this antibody requires that additional testing be performed and this may result in additional time for blood product selection when ordered for transfusion. Therapeutic Relevance: ABO/Rh and crossmatch compatible red blood cell units negative for the E antigen will be provided for future transfusions. Approximately 71% ABO/Rh compatible units from the donor population are expected to be compatible. Approximately 1-2 units will need to be screened to find one compatible unit for this patient. Contact Information: Please contact the [facility] Blood Bank with any questions. This report has been prepared by: Maximilian Montalvo MD Attestation: I have personally reviewed the antibody result and agree with the interpretation contained in this written blood bank report. Cirilo Gutiérrez MD PhD * Ankur Victor MD PhD - 11/17/2020 1:05 PM CDT Medicine Daily Progress Note Patient: Kris Spence : 1960 (60 y.o.) Date of Admission: 11/16/2020 Date of Service: 11/17/20 SUBJECTIVE ??? No acute events overnight. Patient was afebrile and hemodynamically stable. ??? No further episodes of GI bleeding O/N; Hgb stable as well. Bleeding most likely 2/2 post-procedural bleeding. ??? Patient stable for d/c per GI team. OBJECTIVE Vitals Most Recent: Vitals: 11/17/20 0535 BP: 144/86 Pulse: 64 Resp: 16 Temp: 36.5 ??C (97.7 ??F) SpO2: 96% 24 Hour Min/Max: Temp Min: 36.4 ??C (97.5 ??F) Max: 36.5 ??C (97.7 ??F) Pulse Min: 59 Max: 71 BP Min: 123/92 Max: 154/98 Resp Min: 16 Max: 20 SpO2 Min: 92 % Max: 97 % Intake/Output No intake or output data in the 24 hours ending 11/17/20 1179 Current Medications Scheduled Meds: No current [facility]-ordered facility-administered medications on file. Continuous Meds: No current facility-administered medications for this encounter. PRN Meds: No current [facility]-ordered facility-administered medications on file. Physical Exam General: Well-developed, well-nourished, appears stated age, NAD HENT: NCAT. Conjunctivae are normal. No scleral icterus. Neck: Neck supple. No thyromegaly. No JVD Cardiovascular: RRR. Normal S1/S2. No r/m/g. No peripheral edema Pulmonary/Chest: no respiratory distress. CTAB. No w/r/r Abdomen: soft, +BS. NTND. No rebound tenderness, no guarding. Ventral hernia appreciated. Skin: warm and dry, no observable rashes Extremities: 2+ radial, DP pulses Neuro: A&Ox4, no focal neurologic deficits, 5/5 strength in all extremities Psych: Normal mood and affect Laboratory Results Recent Results (from the past 24 hour(s)) CBC with auto differential Collection Time: 11/16/20 7:21 PM Result Value Ref Range WBC 7.6 3.8 - 9.9 K/cumm Hgb 15.2 13.0 - 17.5 g/dL Hct 41.4 38.9 - 50.3 % Plt 239 150 - 400 K/cumm MPV 10.1 9.1 - 12.3 fL RBC 4.69 4.30 - 5.80 M/cumm MCV 88.3 81.3 - 96.4 fL MCH 32.4 27.1 - 33.3 pg MCHC 36.7 (H) 32.3 - 35.7 g/dL RDW CV 12.2 11.1 - 14.9 % RDW SD 39.0 35.7 - 48.1 fL NRBC abs 0.00 0.00 - 0.01 K/cumm Comprehensive metabolic panel Collection Time: 11/16/20 7:21 PM Result Value Ref Range Sodium 138 135 - 145 mmol/L Potassium, pl 3.3 3.3 - 4.9 mmol/L Chloride 98 97 - 110 mmol/L CO2 32 22 - 32 mmol/L Anion gap 8 2 - 15 mmol/L BUN 16 8 - 25 mg/dL Creatinine 1.08 0.80 - 1.30 mg/dL Glucose 90 70 - 199 mg/dL Calcium 9.6 8.5 - 10.3 mg/dL Bilirubin, total 0.4 0.1 - 1.2 mg/dL Protein, pl 7.5 6.5 - 8.5 g/dL Albumin 4.7 3.5 - 5.0 g/dL Alk phos 50 40 - 130 Units/L ALT 38 7 - 55 Units/L AST 35 10 - 50 Units/L Protime-INR Collection Time: 11/16/20 7:21 PM Result Value Ref Range PT 10.7 9.5 - 13.6 sec INR 1.0 0.9 - 1.2 aPTT Collection Time: 11/16/20 7:21 PM Result Value Ref Range aPTT 31 27 - 37 sec Type and screen Collection Time: 11/16/20 7:21 PM Result Value Ref Range ABO Rh A Positive Pam, indirect Positive (A) COVID-19 Coronavirus RNA Nasopharyngeal Collection Time: 11/16/20 7:21 PM Specimen: Nasopharyngeal Result Value Ref Range COVID-19 RNA Negative Negative Employeed in healthcare? No status? No Group care resident? No Hospitalized? No Is patient in ICU? No Symptomatic as defined by CDC? No Differential, auto Collection Time: 11/16/20 7:21 PM Result Value Ref Range Neutrophil abs 4.0 1.7 - 6.5 K/cumm Imm gran abs 0.1 0.0 - 0.1 K/cumm Lymphocyte abs 2.6 0.8 - 3.3 K/cumm Monocyte abs 0.7 0.2 - 0.8 K/cumm Eosinophil abs 0.2 0.0 - 0.5 K/cumm Basophil abs 0.0 0.0 - 0.1 K/cumm Neutrophil pct 52.8 % Imm gran pct 0.7 % Lymphocyte pct 34.0 % Monocyte pct 9.7 % Eosinophil pct 2.3 % Basophil pct 0.5 % eGFR Collection Time: 11/16/20 7:21 PM Result Value Ref Range eGFR 74 (L) 90 - 130 mL/min/1.73 m2 Antibody identification Collection Time: 11/16/20 9:34 PM Result Value Ref Range Antibody ID 1 Anti-E B E Antigen Type Collection Time: 11/16/20 11:01 PM Result Value Ref Range RBC phenotyping, E ag Negative CBC without differential Collection Time: 11/17/20 12:13 AM Result Value Ref Range WBC 7.7 3.8 - 9.9 K/cumm Hgb 13.9 13.0 - 17.5 g/dL Hct 39.2 38.9 - 50.3 % Plt 215 150 - 400 K/cumm MPV 10.1 9.1 - 12.3 fL RBC 4.46 4.30 - 5.80 M/cumm MCV 87.9 81.3 - 96.4 fL MCH 31.2 27.1 - 33.3 pg MCHC 35.5 32.3 - 35.7 g/dL RDW CV 12.2 11.1 - 14.9 % RDW SD 38.8 35.7 - 48.1 fL NRBC abs 0.00 0.00 - 0.01 K/cumm Type and screen Collection Time: 11/17/20 6:11 AM Result Value Ref Range ABO Rh A Positive Pam, indirect Positive (A) Antibody identification Collection Time: 11/17/20 7:37 AM Result Value Ref Range Antibody ID 1 Anti-E CBC without differential Collection Time: 11/17/20 8:56 AM Result Value Ref Range WBC 5.8 3.8 - 9.9 K/cumm Hgb 13.8 13.0 - 17.5 g/dL Hct 38.5 (L) 38.9 - 50.3 % Plt 196 150 - 400 K/cumm MPV 9.8 9.1 - 12.3 fL RBC 4.41 4.30 - 5.80 M/cumm MCV 87.3 81.3 - 96.4 fL MCH 31.3 27.1 - 33.3 pg MCHC 35.8 (H) 32.3 - 35.7 g/dL RDW CV 12.0 11.1 - 14.9 % RDW SD 38.5 35.7 - 48.1 fL NRBC abs 0.00 0.00 - 0.01 K/cumm I have reviewed the laboratory results from the past [address] Body Outside Reference Narrative: EXAMINATION: Images For Reference Purposes Only Impression: These images are for Reference purposes only and have not been reviewed by [facility] Radiology. There will be no report generated by a [facility] Radiologist. I have independently reviewed and interpreted the imaging results from the past 24 hours. ASSESSMENT & PLAN Kris Spence is a 60 y.o. male with hx of chron's, HTN, GERD who presents with BRBPR 2 days aftera pouchoscopy. He is hemodynamically stable, and appears overall well with a completley benign examand lab findings. Admit with plans for GI scope in AM. ?? # BRBPR # Diarrhea Patient with 2 days of bright red blood mixed with his bowel movements; has 8-10 daily (which is his baseline). Has no abdominal pain, endorses increased fatigue and one episode of lightheadedness, but otherwise is asymptomatic. DDx: post- procedural ?2/2 biopsies vs ulcers identified on scope, low concern for crohn's flare. Given stability, normal Hgb, and length of symptoms, unlikely to be UGIB. - Hgb stable; GI bleeding resolved O/N - F/u GI recs ?? # HTN Home regimen is chlorthalidone and metoprolol. Pt has no other indication for metoprolol per his recollection nor his chart records. - Continue chlorthalidone - d/c metop (no indication for it) - Start lisinopril 10 (to help with hypokalemia) ?? # GERD Home omeprazole, switch to protonix while inpatient. ?? Code Status: full Disposition: home Diet: NPO VTE Prophylaxis: SCD Ankur Victor MD PhD Internal Medicine Resident Physician, PGY-1 Cosigned by Harvey Ford MD at 11/17/2020 7:09 PM CDT documented in this encounter H&P Notes * Yessi Rizzo MD - 11/16/2020 10:49 PM CDT Medicine Firm History and Physical Patient Name: Kris Spence Date of / Age: 2 1960 / 60 y.o. Gender: male Date of Service: 11/16/2020 [facility] PCP: Scott Randle DO Subjective SUBJECTIVE Chief Complaint: GI Bleed HPI: Kris Spence is a 60 y.o. male with HTN, GERD, nephrolithiasis, crohn's disease here with hematochezia. Patient was in his usual state of health until 2 days prior to admission when he had a pouchoscopy performed to assess his response to Remicade. On pouchoscopy, he was noted to have a few ulcers in the afferent limb and pseudopolyps which were resected. He also had a biopsy of the rectal cuff, which appeared normal. He was informed that he may have some bleeding after. The night of the procedure, he noted red blood in his stool, the bowel, and when wiping. He proceeded to have his baseline 8-10 BMs each subsequent day, which are mostly watery, and each time he noted bright red blood in the bowel. He otherwise was asymptomatic, he went to play golf with his friends the day after the procedure which was notable only for increased fatigue versus normal. The day ofadmission (2 days post-procedure) he did endorse feeling lightheaded while bending over. His and he called the GI team, who recommended he come in to be evaluated. Notably, he has no fevers, chills, chest pain, shortness of breath, abdominal pain. No nausea or vomiting. Has had normal PO intake. No urgency. No edema, no rashes. In the ED, he was noted to be afebrile, pulse 60-70 (on metop) and BP stable. GI was consulted, they wanted to scope in AM and so patient was made npo at midnight. Labs notable for a Hgb of 15.2. Past Medical History: Diagnosis Date ??? GERD (gastroesophageal reflux disease) ??? HTN (hypertension) ??? Liver hemangioma ??? Nephrolithiasis Past Surgical History: Procedure Laterality Date ??? ABDOMINAL WALL DEFECT REPAIR 2013 reconstruction ??? CYSTOSCOPY W/ LASER LITHOTRIPSY Right 2017 ??? HEMANGIOMA EXCISION 2016 liver ??? RESTORATIVE PROCTOCOLECTOMY 2003 J-pouch ??? VENTRAL HERNIA REPAIR 06/2009, 07/2009 (Not in a hospital admission) Allergies Allergen Reactions ??? Fruit Extracts Hives Tomatoes and oranges ??? Iron Rash ??? [place] Juice Hives ??? [place] Oil Hives ??? Sulfa (Sulfonamide Antibiotics) Hives and Rash ??? Tomato Hives ??? Sulfur Unknown Cerner Allergy Text Annotation: Sulfur ??? Azathioprine Other (See comments) pancreatitis Social History Tobacco Use ??? Smoking status: Never Smoker Substance Use Topics ??? Alcohol use: Yes Comment: socially Family History Problem Relation Age of Onset ??? Cancer Father ??? Hypertension Father Review of Systems: Review of systems per HPI and otherwise all other systems are negative Objective OBJECTIVE Scheduled Medications: Continuous Medications: No current facility-administered medications for this encounter. PRN Medications: Vitals: Most Recent : Vitals: 11/16/20 2200 BP: 141/87 Pulse: 71 Resp: Temp: SpO2: 93% Arrival Vitals [11/16/20 1802] Temp 36.7 ??C (98 ??F) Pulse 72 Resp 18 BP 126/89 SpO2 98 % Temp src Tympanic Heart Rate Source Patient Position BP Location FiO2 (%) 24hr Min/Max: Temp Min: 36.7 ??C (98 ??F) Max: 36.7 ??C (98 ??F) Pulse Min: 59 Max: 72 BP Min: 126/89 Max: 154/98 Resp Min: 18 Max: 20 SpO2 Min: 93 % Max: 98 % I/O: No intake/output data recorded. No intake/output data recorded. Physical exam: General: Well-developed, well-nourished, appears stated age, NAD HENT: NCAT. Conjunctivae are normal. No scleral icterus. Neck: Neck supple. No thyromegaly. No JVD Cardiovascular: RRR. Normal S1/S2. No r/m/g. No peripheral edema Pulmonary/Chest: no respiratory distress. CTAB. No w/r/r Abdomen: soft, +BS. NTND. No rebound tenderness, no guarding. Ventral hernia appreciated. Skin: warm and dry, no observable rashes Extremities: 2+ radial, DP pulses Neuro: A&Ox4, no focal neurologic deficits, 5/5 strength in all extremities Psych: Normal mood and affect Lab/Radiology/Diagnostic Review: Recent Results (from the past 24 hour(s)) CBC with auto differential Collection Time: 11/16/20 7:21 PM Result Value Ref Range WBC 7.6 3.8 - 9.9 K/cumm Hgb 15.2 13.0 - 17.5 g/dL Hct 41.4 38.9 - 50.3 % Plt 239 150 - 400 K/cumm MPV 10.1 9.1 - 12.3 fL RBC 4.69 4.30 - 5.80 M/cumm MCV 88.3 81.3 - 96.4 fL MCH 32.4 27.1 - 33.3 pg MCHC 36.7 (H) 32.3 - 35.7 g/dL RDW CV 12.2 11.1 - 14.9 % RDW SD 39.0 35.7 - 48.1 fL NRBC abs 0.00 0.00 - 0.01 K/cumm Comprehensive metabolic panel Collection Time: 11/16/20 7:21 PM Result Value Ref Range Sodium 138 135 - 145 mmol/L Potassium, pl 3.3 3.3 - 4.9 mmol/L Chloride 98 97 - 110 mmol/L CO2 32 22 - 32 mmol/L Anion gap 8 2 - 15 mmol/L BUN 16 8 - 25 mg/dL Creatinine 1.08 0.80 - 1.30 mg/dL Glucose 90 70 - 199 mg/dL Calcium 9.6 8.5 - 10.3 mg/dL Bilirubin, total 0.4 0.1 - 1.2 mg/dL Protein, pl 7.5 6.5 - 8.5 g/dL Albumin 4.7 3.5 - 5.0 g/dL Alk phos 50 40 - 130 Units/L ALT 38 7 - 55 Units/L AST 35 10 - 50 Units/L Protime-INR Collection Time: 11/16/20 7:21 PM Result Value Ref Range PT 10.7 9.5 - 13.6 sec INR 1.0 0.9 - 1.2 aPTT Collection Time: 11/16/20 7:21 PM Result Value Ref Range aPTT 31 27 - 37 sec Type and screen Collection Time: 11/16/20 7:21 PM Result Value Ref Range ABO Rh A Positive Pam, indirect Positive (A) COVID-19 Coronavirus RNA Nasopharyngeal Collection Time: 11/16/20 7:21 PM Specimen: Nasopharyngeal Result Value Ref Range COVID-19 RNA Negative Negative Employeed in healthcare? No status? No Group care resident? No Hospitalized? No Is patient in ICU? No Symptomatic as defined by CDC? No Differential, auto Collection Time: 11/16/20 7:21 PM Result Value Ref Range Neutrophil abs 4.0 1.7 - 6.5 K/cumm Imm gran abs 0.1 0.0 - 0.1 K/cumm Lymphocyte abs 2.6 0.8 - 3.3 K/cumm Monocyte abs 0.7 0.2 - 0.8 K/cumm Eosinophil abs 0.2 0.0 - 0.5 K/cumm Basophil abs 0.0 0.0 - 0.1 K/cumm Neutrophil pct 52.8 % Imm gran pct 0.7 % Lymphocyte pct 34.0 % Monocyte pct 9.7 % Eosinophil pct 2.3 % Basophil pct 0.5 % eGFR Collection Time: 11/16/20 7:21 PM Result Value Ref Range eGFR 74 (L) 90 - 130 mL/min/1.73 m2 I have reviewed the above laboratory results. Imaging Results: No results found. Assessment/Plan ASSESSMENT & PLAN Kris Spence is a 60 y.o. male with hx of chron's, HTN, GERD who presents with BRBPR 2 days aftera pouchoscopy. He is hemodynamically stable, and appears overall well with a completley benign examand lab findings. Plan to admit for GI scope in AM. #BRBPR #Diarrhea Patient with 2 days of bright red blood mixed with his bowel movements; has 8-10 daily (which is his baseline). Has no abdominal pain, endorses increased fatigue and one episode of lightheadedness, but otherwise is asymptomatic. DDx: post- procedural ?2/2 biopsies vs ulcers identified on scope, low concern for crohn's flare. Given stability, normal Hgb, and length of symptoms, unlikely to be UGIB. - CBC at midnight to trend Hgb - Given HDS, will defer IVF - Replete potassium as needed - F/u GI recs #HTN Home regimen is chlorthalidone and metoprolol. Pt has no other indication for metoprolol per his recollection nor his chart records. - Plan to dc chlorthalidone given his low potassium, plan to dc metop as it could contribute to hisfatigue symptoms - Start lisinopril 10 #GERD Home omeprazole, switch to protonix while inpatient Code Status: Prior Diet: NPO Diet DVT Prophylaxis: SCD Cosigned by Harvey Ford MD at 11/17/2020 2:56 PM CDT Associated attestation - Defer, Harvey Rick MD - 11/17/2020 2:56 PM CDT I have seen and examined the patient on 11/17/20. I agree with the findings and plan of care as documented in the resident's/fellow's note. No further bleeding and H/H stable, OK to discharge if OK with GI. documented in this encounter Consult Notes * Barb Crawley MD - 11/17/2020 7:25 AM CDT Private GI Initial Consult Chief complaint: rectal bleeding Reason for consult: evaluation Requesting provider: Dr. Rodrigues HPI: This is a 60 y.o. male PMHx significant for HTN, GERD, nephrolithiasis, crohn's disease s/p total colectomy with J-pouch (2002) on infliximab who underwent pouchoscopy 11/14 and presented with rectal bleeding. Patient reports around 3 episodes of BRBPR in the toilet bowl and on the toilet paper. He was feeling well otherwise but after it had gone on for 2 days, his was concerned and insisted they be evaluated. On arrival to the ED, patient was HD. Hb was 15.2 and has downtrended to 13.9. He had one bowel movement in the ED that was darker looking followed by 2 bowel movements here that were brown and did not have blood in the bowl of on the toilet paper. He denies associated abdominal pain, but has two ventral hernias that sometimes cause him discomfort. He denies nausea, vomiting, lightheadedness, dizziness, melena. Of note, pouchoscopy demonstrated a normal rectal cuff, a normal J pouch, a few ulcers in the afferent limb as well as pseudopolyps that were resected. With regards to his IBD history: 1988 - issues with diarrhea, admission for GI bleed 2/2 PUD 1991 ongoing diarrhea- diagnosed as Ulcerative proctitis treated with steroids, sulfasalazine, and enemas. 1996 - worsening diarrhea, colonoscopy demonstrated left colon involvement, he was started on azathioprine, c/b pancreatitis, not sure what he was put on next. Ongoing issues with diarrhea, episode of incontinence 06/2002 - total colectomy with J-pouch construction and a temporary ileostomy 09/2002 - ileostomy takedown [id number], overall doing well with bowel omvements 2013 - increase frequency to 12BMs per day, surgeon performed pouchoscopy and showed inflamed afferent limb, eventually put on Humira by his campaign associate (after other medication attemps, unclear which), symptoms improved but noted anticipatory symptoms. Humira levels were checked several times and were low. MTX was added but patient did not tolerate this, felt unwell. AZA not tried because of AP history. 2018 - Started stelara q8 weeks, slight improvement in symptoms 2018 - pouchoscopy showed severe inflammation in afferent limb, decrease in dosing interval to q4 weeks 03/2020 - established care in IBD clinic at [facility] with Dr. Moreno, he was taken off stelara, started on cefdinir x 1 month, KATE virus positive so patient was started on infliximab 08/2020 - symptomatic improvement on infliximab 11/14/20 - pouchoscopy normal rectal cuff, a normal J pouch, a few ulcers in the afferent limb as well as pseudopolyps that were resected. Past Medical History: Diagnosis Date ??? GERD (gastroesophageal reflux disease) ??? HTN (hypertension) ??? Liver hemangioma ??? Nephrolithiasis Past Surgical History: Procedure Laterality Date ??? ABDOMINAL WALL DEFECT REPAIR 2013 reconstruction ??? CYSTOSCOPY W/ LASER LITHOTRIPSY Right 2017 ??? HEMANGIOMA EXCISION 2016 liver ??? RESTORATIVE PROCTOCOLECTOMY 2003 J-pouch ??? VENTRAL HERNIA REPAIR 06/2009, 07/2009 Medications Prior to Admission Medication Sig Dispense Refill Last Dose ??? acetaminophen-codeine (TYLENOL with CODEINE #3) 300-30 mg per tablet Take 1- 2 tablets by mouth every 4 (four) hours as needed (Patient not taking: Reported on 08/07/2020) ??? allopurinoL (ZYLOPRIM) 100 mg tablet Take [...] tablet Take 48 mg by mouth daily ??? gabapentin (NEURONTIN) 300 mg capsule TAKE [...] extended release tablet Take by mouth ??? dcvuydhciiak-gzbwkubf-zufpcs tablet Take 1 tablet by mouth daily ??? ondansetron ODT (ZOFRAN-ODT) 4 mg disintegrating tablet Take 4 mg by mouth every 8 (eight) hours as needed ??? sildenafiL, pulm.hypertension, (REVATIO) 20 mg tablet 5 mg ??? testosterone cypionate (DEPO-TESTOTERONE) 200 mg/mL injection INJECT O.5 ML (100MG) INTRAMUSCULARLY ONCE EVERY 2 WEEKS Allergies Allergen Reactions ??? Fruit Extracts Hives Tomatoes and oranges ??? Iron Rash ??? [place] Juice Hives ??? [place] Oil Hives ??? Sulfa (Sulfonamide Antibiotics) Hives and Rash ??? Tomato Hives ??? Sulfur Unknown Cerner Allergy Text Annotation: Sulfur ??? Azathioprine Other (See comments) pancreatitis Social History Tobacco Use ??? Smoking status: Never Smoker Substance Use Topics ??? Alcohol use: Yes Comment: socially ??? Drug use: Never Family History Problem Relation Age of Onset ??? Cancer Father ??? Hypertension Father Review of Systems: Review of systems per HPI and otherwise all other systems are negative Vitals: 24hr Min/Max: Temp Min: 36.4 ??C (97.5 ??F) Max: 36.7 ??C (98 ??F) Pulse Min: 59 Max: 72 BP Min: 123/92 Max: 154/98 Resp Min: 16 Max: 20 SpO2 Min: 92 % Max: 98 % Most Recent : Vitals: 11/17/20 0535 BP: 144/86 Pulse: 64 Resp: 16 Temp: 36.5 ??C (97.7 ??F) SpO2: 96% No intake/output data recorded. No intake/output data recorded. Objective Physical Exam: General Appearance: Alert, cooperative, no distress. HEENT: Normocephalic, without obvious abnormality, atraumatic. No scleral icterus or conjunctival pallor. Neck: No palpable lymphadenopathy. Lungs: Clear to auscultation bilaterally, respirations unlabored Cardiovascular: Regular rate and rhythm, no murmur. Abdomen: Soft, non-tender, large ventral hernia in the upper left abdomen, nontender Extremities: No cyanosis or edema, no clubbing Skin: No rash Neurologic: Alert and oriented x 4. No focal deficits. CN II-XII intact. Psychiatric: Normal mood and affect Lab/Radiology/Diagnostic Review: Recent Labs Lab Units 11/17/20 0013 11/16/20 1921 WBC K/cumm 7.7 7.6 HEMOGLOBIN g/dL 13.9 15.2 HEMATOCRIT % 39.2 41.4 PLATELETS K/cumm 215 239 SODIUM mmol/L -- 138 POTASSIUM PLASMA mmol/L -- 3.3 CHLORIDE mmol/L -- 98 CO2 mmol/L -- 32 ANIONGAP mmol/L -- 8 GLUCOSE mg/dL -- 90 BUN SERUM mg/dL -- 16 CREATININE mg/dL -- 1.08 CALCIUM mg/dL -- 9.6 ALBUMIN g/dL -- 4.7 BILIRUBIN TOTAL mg/dL -- 0.4 ALK PHOS Units/L -- 50 ALT Units/L -- 38 AST Units/L -- 35 INR -- 1.0 Assessment/Plan 60 y.o. male PMHx significant for HTN, GERD, nephrolithiasis, crohn's disease s/p total colectomy with J-pouch (2002) on infliximab who underwent pouchoscopy 11/14 and presented with rectal bleeding. Patient's bleeding was self limited and resolved spontaneously before evaluation today. He did have around 1g drop in his Hb however this will likely stabilized given complete resolution of bleeding. Etiology is most likely post-polypectomy bleeding. - No indication for endoscopic evaluation given resolution - From a GI standpoint, patient can probably be discharged home with instructions on indications tocall or present for evaluation. At the time of signing this note, patient has been discharged from the hospital. Thank you for involving us in the care of this patient. If you have any questions, please call the private GI pager during weekdays or the [facility] phone during after hours and weekends. Barb Crawley MD Cosigned by Cam Rowe MD at 11/21/2020 2:44 PM CDT Associated attestation - Cam Rowe MD - 11/21/2020 2:44 PM CDT The patient was admitted on and was seen by the fellow on the morning of 11/17. By the timeI went to see the patient on the afternoon of 11/17, he had been discharged. documented in this encounter Nursing Notes * Sally Diaz RN - 11/17/2020 12:55 PM CDT Patient discharged to home. Peripheral IV removed. Discharge instructions discussed with patient, who verbalized understanding. All belongings returned to and sent with the patient. documented in this encounter ED Notes * Willam Morales MD - 11/16/2020 7:24 PM CDT Patient presents with rectal bleeding after a pouchoscopy on Tuesday. He has Crohn's disease. Dr. Julia Moreno M.D. of Gastroenterology performed a pouchoscopy on Tuesday: - The rectal cuff is normal. Biopsied. - The j-pouch is normal. - A few ulcers in the afferent limb. - Pseudopolyps in the afferent limb. Resected and retrieved. Patient had a small amount of rectal bleeding on Tuesday but then persistent bleeding on both Tuesday and Tuesday. He reports approximately 8 visits to the bathroom with visible blood in the toilet bowl. He denies abdominal pain. On exam pulse is 62 in the setting of being on metoprolol. Blood pressure is normal. Abdomen is soft nontender. We will assess degree of hemorrhage with a CBC and pressure capacity to resuscitate with IV access. We will coordinate care with gastroenterology. I have seen and examined the patient on 11/16/2020. I agree with the findings and plan of care as documented in the resident's note. Willam Morales MD 11/17/20 1433 * Royce Gibson MD - 11/16/2020 7:14 PM CDT HPI Chief Complaint Patient presents with ??? Black or Bloody Stool Per pt and chart review, the Kris Spence is a 60 y.o. male w/ pmhx of HTN, GERD, Nephrolithiasiscrohn's disease who is here with hematochezia since pouchoscopy on 11/14. Pt reports having BM 8-10xa day. Noted to have blood with each stool. Feels dizzy and lightheaded. No other complaints. Fhx: HTN Shx: Denies smoking, ETOH, Rec drugs Allergies: see chart. Pertinent Medications: see chart Please note that for this note and updates, case hardener was completed by using [email or web address] Fluency Direct speaking software, therefore, case hardener variances may occur. Patient History: Patient Active Problem List Diagnosis Date Noted ??? Gastrointestinal hemorrhage 11/16/2020 ??? Crohn's disease of ileum with complication (CMS/HCC) (HCC) 03/27/2020 ??? Recurrent incisional hernia 03/07/2020 Past Medical History: Diagnosis Date ??? GERD (gastroesophageal reflux disease) ??? HTN (hypertension) ??? Liver hemangioma ??? Nephrolithiasis Past Surgical History: Procedure Laterality Date ??? ABDOMINAL WALL DEFECT REPAIR 2013 reconstruction ??? CYSTOSCOPY W/ LASER LITHOTRIPSY Right 2017 ??? HEMANGIOMA EXCISION 2016 liver ??? RESTORATIVE PROCTOCOLECTOMY 2003 J-pouch ??? VENTRAL HERNIA REPAIR 06/2009, 07/2009 Family History Problem Relation Age of Onset ??? Cancer Father ??? Hypertension Father Social History Tobacco Use ??? Smoking status: Never Smoker Substance Use Topics ??? Alcohol use: Yes Comment: socially ??? Drug use: Never Social History Social History Narrative ??? Not on file Review of Systems Review of Systems Constitutional: Negative for chills and fever. HENT: Negative for congestion, ear pain, sinus pain, sore throat and voice change. Eyes: Negative for photophobia, pain and itching. Respiratory: Negative for cough and shortness of breath. Cardiovascular: Negative for chest pain and palpitations. Gastrointestinal: Positive for blood in stool. Negative for abdominal pain, constipation, diarrhea,nausea and vomiting. Endocrine: Negative for polydipsia and polyuria. Genitourinary: Negative for flank pain, frequency and hematuria. Musculoskeletal: Negative for back pain and gait problem. Skin: Negative for color change and rash. Allergic/Immunologic: Negative for environmental allergies and immunocompromised state. Neurological: Negative for dizziness, numbness and headaches. Hematological: Does not bruise/bleed easily. Psychiatric/Behavioral: Negative for agitation. The patient is not nervous/anxious. Physical Exam ED Triage Vitals Temp Pulse Resp BP SpO2 11/16/20 1802 11/16/20 1802 11/16/20 1802 11/16/20 1802 11/16/20 1802 36.7 ??C (98 ??F) 72 18 126/89 98 % Temp src Heart Rate Source Patient Position BP Location FiO2 (%) 11/16/20 1802 11/17/20 0200 -- 11/17/20 0200 -- Tympanic Monitor Left arm Physical Exam Vitals and nursing note reviewed. Constitutional: Appearance: He is well-developed. HENT: Head: Normocephalic and atraumatic. Eyes: Conjunctiva/sclera: Conjunctivae normal. Cardiovascular: Rate and Rhythm: Normal rate and regular rhythm. Heart sounds: Normal heart sounds. No murmur heard. Pulmonary: Effort: Pulmonary effort is normal. No respiratory distress. Breath sounds: Normal breath sounds. Abdominal: Palpations: Abdomen is soft. Tenderness: There is no abdominal tenderness. Genitourinary: Rectum: Guaiac result positive. Musculoskeletal: Cervical back: Neck supple. Skin: General: Skin is warm and dry. Capillary Refill: Capillary refill takes less than 2 seconds. Neurological: Mental Status: He is alert and oriented to person, place, and time. MDM Medical Decision Making Differential Diagnosis or Management Options: Concern for GI bleed. Ulcer vs polyp vs iatrogenic. Will get basic hematology labs, trend, consult GI reassess. Protonix. Attending Summary of Care ED Course as of Nov 17 413 Time: 11/16 2017 Value: Hgb: 15.2 Comment: (Reviewed) By: Royce Gibson MD Time: 11/16 2045 Comment: Spoke to GI, admit for 24 hour obs, they will see in the morning. NPO at midnight for possible scope. By: Royce Gibson MD Gastrointestinal hemorrhage, unspecified gastrointestinal hemorrhage type Royce Gibson MD Resident 11/17/20413 Cosigned by Willam Morales MD at 11/17/2020 2:34 PM CDT Associated attestation - Kris Morales MD - 11/17/2020 2:34 PM CDT I have seen and examined the patient on 11/16/2020. I agree with the findings and plan of care as documented in the resident's note. * Shanell Oro RN - 11/16/2020 7:01 PM CDT Bed: [facility] Expected date: Expected time: Means of arrival: Car Comments: Triage Shanell Oro RN 11/16/201900 * Priyanka Yu RN - 11/16/2020 6:03 PM CDT Patient into ED from home, had polyps removed on Tuesday with pouchoscopy. Patient in now for bloodystools, increased in amount today. Bright red. Also c/o lightheadedness with bending over and sitting up. Denies pain. Denies use of blood thinners. documented in this encounter Miscellaneous Notes * Plan of Care - Sally Diaz RN - 11/17/2020 7:28 AM CDT Problem: Activity: Goal: Risk for activity intolerance will decrease Outcome: Progressing Problem: Lack of Knowledge: Goal: Knowledge of diagnostic tests will improve Outcome: Progressing Goal: Knowledge of disease or condition will improve Outcome: Progressing Goal: Knowledge of safety precautions will improve Outcome: Progressing Goal: Knowledge of the prescribed therapeutic regimen will improve Outcome: Progressing Problem: Safety: Goal: Ability to remain free from injury will improve Outcome: Progressing Goal: Will remain free from falls Outcome: Progressing Goals: Summary: * Plan of Care - Serenity Blanton RN - 11/17/2020 2:31 AM CDT Goals: Summary: Admit to unit, monitor vitals and labs documented in this encounter Plan of Treatment Not on file documented as of this encounter Procedures Procedure Name Priority Date/Time Associated Diagnosis Comments CBC WITHOUT DIFFERENTIAL Routine 11/17/2020 8:56 AM CDT ANTIBODY IDENTIFICATION Timed 11/18/19 7:37 AM CDT TYPE AND SCREEN Timed 11/17/2020 6:11 AM CDT CBC WITHOUT DIFFERENTIAL Routine 11/17/2020 12:13 AM CDT B E ANTIGEN TYPE Routine 11/16/2020 11:0 1 PM CDT ANTIBODY IDENTIFICATION STAT 11/17/19 9:34 PM CDT COVID-19 CORONAVIRUS RNA Routine 11/16/2020 7:21 PM CDT EGFR STAT 11/16/2020 7:21 PM CDT DIFFERENTIAL AUTO STAT 11/16/2020 7:2 1 PM CDT CBC WITH AUTO DIFFERENTIAL STAT 11/16/2020 7:21 PM CDT APTT STAT 11/16/2020 7:21 PM CDT PROTIME-INR STAT 11/16/2020 7:21 PM CDT TYPE AND SCREEN STAT 11/16/2020 7:21 PM CDT COMPREHENSIVE METABOLIC PANEL STAT 11/16/2020 7:21 PM CDT documented in this encounter Results * (ABNORMAL) CBC without differential (11/17/2020 8:56 AM CDT) [facility] WBC 5.8 3.8 - 9.9 K/cumm [facility] Hgb 13.8 13.0 - 17.5 g/dL [facility] Hct 38.5(L) 38.9 - 50.3 % [facility] Plt 196 150 - 400 K/cumm [facility] MPV 9.8 9.1 - 12.3 fL [facility] RBC 4.41 4.30 - 5.80 M/cumm [facility] MCV 87.3 81.3 - 96.4 fL [facility] MCH 31.3 27.1 - 33.3 pg [facility] MCHC 35.8(H) 32.3 - 35.7 g/dL [facility] RDW CV 12.0 11.1 - 14.9 % [facility] RDW SD 38.5 35.7 - 48.1 fL [facility] NRBC abs 0.00 0.00 - 0.01 K/cumm [facility] Blood 11/17/2020 8:56 AM CDT 11/17/2020 9:05 AM CDT us Irineo Rodrigues MD LAB BLOOD ORDERABLES Final R esult Performing Organization Address [facility] Co de Phone Number [facility] Department [place] [address] * Antibody identification (11/17/2020 7:37 AM CDT) Antibody ID 1 Anti-E [facility] Blood 11/17/2020 7:37 AM CDT 11/17/2020 7:37 AM CDT Irineo Rodrigues MD LAB BLOOD BANK TEST ORDERABL ES Final Result Performing Organization Address [facility] de Phone Number [facility] Department [place] [address] * (ABNORMAL) Type and screen (11/17/2020 6:11 AM CDT) ABO Rh A Positive [facility] Pam, indirect Positive(A) [facility] Blood 11/17/2020 6:11 AM CDT 11/17/2020 6:24 AM CDT Narrative [facility] - 11/17/2020 7:37 AM CDT Has the patient had Daratumumab or Isatuximab in the past 6 months?->Unknown Irineo Rodrigues MD LAB BLOOD BANK TEST ORDERABL ES Final Result Performing Organization Address [facility] Co de Phone Number [facility] [place] [address] * CBC without differential (11/17/2020 12:13 AM CDT) Pathologist [facility] WBC 7.7 3.8 - 9.9 K/cumm [facility] Hgb 13.9 13.0 - 17.5 g/dL [facility] Hct 39.2 38.9 - 50.3 % [facility] Plt 215 150 - 400 K/cumm [facility] MPV 10.1 9.1 - 12.3 fL [facility] RBC 4.46 4.30 - 5.80 M/cumm [facility] MCV 87.9 81.3 - 96.4 fL [facility] MCH 31.2 27.1 - 33.3 pg [facility] MCHC 35.5 32.3 - 35.7 g/dL [facility] RDW CV 12.2 11.1 - 14.9 % [facility] RDW SD 38.8 35.7 - 48.1 fL [facility] NRBC abs 0.00 0.00 - 0.01 K/cumm [facility] Blood 11/17/2020 12:1 3 AM CDT 11/17/2020 12:30 AM CDT us Royce Gibson MD LAB BLOOD ORDERABLES Final R esult Performing Organization Address City/[facility]/ZIP Co de Phone Number [facility] Department [place] [address] * B E Antigen Type (11/16/2020 11:01 PM CDT) Pathologist [facility] RBC phenotyping, E ag Negative [facility] Blood 11/16/2020 11:0 1 PM CDT 11/16/2020 11:01 PM CDT Royce Gibson MD LAB BLOOD ORDERABLES Final R esult [facility] Department [place] [address] * Antibody identification (11/16/2020 9:34 PM CDT) Pathologist [facility] Antibody ID 1 Anti-E [facility] Blood 11/16/2020 9:34 PM CDT 11/16/2020 9:34 PM CDT Royce Gibson MD LAB BLOOD BANK TEST ORDERABL ES Final Result [facility] Department [place] [address] * (ABNORMAL) eGFR (11/16/2020 7:21 PM CDT) Pathologist [facility] eGFR 74(L) 90 - 130 mL/min/1.7 3 m2 [facility] Comment: Interpretive Data Reference Interval Normal ?>/= 90 mL/min/1.73m2 Mildly decreased* ? 60 - 89 mL/min/1.73m2 Mildly to moderately decreased ?45 - 59 mL/min/1.73m2 Moderately to severely decreased ??30 - 44 mL/min/1.73m2 Severely decreased ?15 - 29 mL/min/1.73m2 Kidney Failure ?< 15 ??mL/min/1.73m2 *Relative to young adult level Estimated glomerular filtration rate is determined by the CKD-EPI equation recommended by the National Kidney Foundation (KDIGO 2012 Clinical Practice Guideline for the Evaluation and Management of Chronic Kidney Disease. Kidney Intnl Suppl Feb 2012;3:1). The CKD-EPI equation should not be used for patients with unstable renal function and has not been validated in children and those over 70. Current interpretive data was last reviewed 2020 Blood 11/16/2020 7:21 PM CDT 11/16/2020 7:26 PM CDT us Royce Gibson MD LAB BLOOD ORDERABLES Final R esult [facility] Department [place] [address] * Differential, auto (11/16/2020 7:21 PM CDT) Neutrophil abs 4.0 1.7 - 6.5 K/cumm [facility] Imm gran abs 0.1 0.0 - 0.1 K/cumm [facility] Lymphocyte abs 2.6 0.8 - 3.3 K/cumm [facility] Monocyte abs 0.7 0.2 - 0.8 K/cumm [facility] Eosinophil abs 0.2 0.0 - 0.5 K/cumm [facility] Basophil abs 0.0 0.0 - 0.1 K/cumm [facility] Neutrophil pct 52.8 % [facility] Comment: Interpretive Data Percent cell count reference ranges are not reported, since discordance with absolute values may lead to misinterpretation of CBC data. Current Interpretive Data was last revised on 2017. Imm gran pct 0.7 % [facility] Comment: Interpretive Data Percent cell count reference ranges are not reported, since discordance with absolute values may lead to misinterpretation of CBC data. Current Interpretive Data was last revised on 2017. Lymphocyte pct 34.0 % [facility] Comment: Interpretive Data Percent cell count reference ranges are not reported, since discordance with absolute values may lead to misinterpretation of CBC data. Current Interpretive Data was last revised on 2017. Monocyte pct 9.7 % [facility] Comment: Interpretive Data Percent cell count reference ranges are not reported, since discordance with absolute values may lead to misinterpretation of CBC data. Current Interpretive Data was last revised on 2017. Eosinophil pct 2.3 % [facility] Comment: Interpretive Data Percent cell count reference ranges are not reported, since discordance with absolute values may lead to misinterpretation of CBC data. Current Interpretive Data was last revised on 2017. Basophil pct 0.5 % [facility] Comment: Interpretive Data Percent cell count reference ranges are not reported, since discordance with absolute values may lead to misinterpretation of CBC data. Current Interpretive Data was last revised on 2017. Blood 11/16/2020 7:21 PM CDT 11/16/2020 7:26 PM CDT Royce Gibson MD LAB BLOOD ORDERABLES Final R esult [facility] Department [place] [address] * COVID-19 Coronavirus RNA Nasopharyngeal (11/16/2020 7:21 PM CDT) COVID-19 RNA Negative Negative [facility] Comment: Interpretive data: Synonyms for this test include: PCR and NAAT . ??This test is performed using the [employer] Xpert Xpress assay. This is a real-time RT-PCR test intended for the qualitative detection of nucleic acid from the SARS-CoV-2. This assay has been reviewed by the FDA for Emergency Use Authorization (EUA). The performance characteristics have been verified by the performing laboratory. Results must be considered in the clinical context and a negative result does not rule out infection. Interpretive data last revised March 13, 2020. Employeed in healthcare? No [facility] status? No [facility] Group care resident? No [facility] Hospitalized? No [facility] Is patient in ICU? No [facility] Symptomatic as defined by CDC? No [facility] Nasopharyngeal 11/16/2020 7: 21 PM CDT 11/16/2020 7:38 PM CDT Narrative [facility] - 11/16/2020 8:33 PM CDT What is the reason for testing?->Bed placement or semi-private room Royce Gibson MD LAB MICROBIOLOGY - GENERAL [place] [address] * (ABNORMAL) Type and screen (11/16/2020 7:21 PM CDT) ABO Rh A Positive [facility] Pam, indirect Positive(A) [facility] Blood 11/16/2020 7:21 PM CDT 11/16/2020 7:44 PM CDT Narrative [facility] - 11/16/2020 9:34 PM CDT Has the patient had Daratumumab or Isatuximab in the past 6 months?->Unknown Royce Gibson MD LAB BLOOD BANK TEST ORDERABL ES Final Result Performing Organization Address [facility] [place] [address] * aPTT (11/16/2020 7:21 PM CDT) aPTT 31 27 - 37 sec [facility] Comment: Interpretive Data Therapeutic heparin range: 60.0 - 94.0 seconds. Based on correlation with therapeutic heparin activity range of 0.3-0.7 Units/mL. Current interpretive data was last revised on 2020. Blood 11/16/2020 7:21 PM CDT 11/16/2020 7:32 PM CDT Royce Gibson MD LAB BLOOD [place] [address] * Protime-INR (11/16/2020 7:21 PM CDT) PT 10.7 9.5 - 13.6 sec [facility] INR 1.0 0.9 - 1.2 [facility] Comment: Interpretive data Oral anticoagulant therapeutic ranges: Venous thromboembolism prophylaxis or treatment: 2.0-3.0 CARDIOLOGY Standard range: 2.0-3.0 High-intensity range: 2.5-3.5 Refer to indication-specific guidelines for appropriate target ranges for prosthetic heart valve replacement. Current interpretive data was last revised on 2019. Blood 11/16/2020 7:21 PM CDT 11/16/2020 7:32 PM CDT us Royce Gibson MD LAB BLOOD ORDERABLES Final R esult [facility] Department [place] [address] * Comprehensive metabolic panel (11/16/2020 7:21 PM CDT) Sodium 138 135 - 145 mmol/L [facility] Potassium, pl 3.3 3.3 - 4.9 mmol/L [facility] Comment:Hemolyzed; Potassium value may be falsely elevated by as much as 0.3-0.5 mmol/L. Suggest redraw and reanalysis. Chloride 98 97 - 110 mmol/L [facility] CO2 32 22 - 32 mmol/L [facility] Anion gap 8 2 - 15 mmol/L [facility] BUN 16 8 - 25 mg/dL [facility] Creatinine 1.08 0.80 - 1.30 mg/dL [facility] Glucose 90 70 - 199 mg/dL [facility] Comment: Interpretive Data Fasting glucose >/= [...] interpretive data was last revised 2016. Calcium 9.6 8.5 - 10.3 mg/dL [facility] Bilirubin, total 0.4 0.1 - 1.2 mg/dL [facility] Protein, pl 7.5 6.5 - 8.5 g/dL [facility] Albumin 4.7 3.5 - 5.0 g/dL [facility] Alk phos 50 40 - 130 Units/L [facility] ALT 38 7 - 55 Units/L [facility] AST 35 10 - 50 Units/L [facility] Comment:Hemolyzed; result ma y be falsely elevated Blood 11/16/2020 7:21 PM CDT 11/16/2020 7:26 PM CDT Royce Gibson MD LAB BLOOD ORDERABLES Final R esult [facility] Department [place] [address] * (ABNORMAL) CBC with auto differential (11/16/2020 7:21 PM CDT) [facility] WBC 7.6 3.8 - 9.9 K/cumm [facility] Hgb 15.2 13.0 - 17.5 g/dL [facility] Hct 41.4 38.9 - 50.3 % [facility] Plt 239 150 - 400 K/cumm [facility] MPV 10.1 9.1 - 12.3 fL [facility] RBC 4.69 4.30 - 5.80 M/cumm [facility] MCV 88.3 81.3 - 96.4 fL [facility] MCH 32.4 27.1 - 33.3 pg [facility] MCHC 36.7(H) 32.3 - 35.7 g/dL [facility] RDW CV 12.2 11.1 - 14.9 % [facility] RDW SD 39.0 35.7 - 48.1 fL [facility] NRBC abs 0.00 0.00 - 0.01 K/cumm [facility] Blood 11/16/2020 7:21 PM CDT 11/16/2020 7:26 PM CDT us Royce Gibson MD LAB BLOOD ORDERABLES Final R esult [facility] Department [place] [address] documented in this encounter Visit Diagnoses Diagnosis Gastrointestinal hemorrhage- Primary Unspecified, hemorrhage of gastrointestinal tract Gastrointestinal hemorrhage, unspecified gastrointestinal hemorrhage type documented in this encounter Admitting Diagnoses Diagnosis Gastrointestinal hemorrhage Unspecified, hemorrhage of gastrointestinal tract documented in this encounter Administered Medications Inactive Administered Medications - up to 3 most recent administrations Medication Order MAR Action Action Date Dose Rate Site allopurinoL (ZYLOPRIM) tablet 100 mg 100 mg, oral, 2 times daily, First dose on Tue11/17/20 at 0900 Given 11/17/2020 7:57 AM CDT 100 mg cholecalciferol (VITAMIN D-3) capsule 2,000 Units 2,000 Units, oral, Daily, First dose on Tue11/17/20 at 0900 Given 11/17/2020 7:58 AM CDT 2,000 Units fenofibrate nanocrystallized (TRICOR) tablet 48 mg 48 mg, oral, Daily, First dose on Tue11/17/20 at 0900 Given 11/17/2020 7:58 AM CDT 48 mg gabapentin (NEURONTIN) capsule 300 mg 300 mg, oral, 4 times daily, First dose on Tue11/17/20 at 0800, Do not crush, break, or open. Given 11/17/2020 11:56 AM CDT 300 mg Given 11/17/2020 7:59 AM CDT 300 mg lisinopriL (PRINIVIL,ZESTRIL) tablet 10 mg 10 mg, oral, Daily, First dose on Tue11/17/20 at 0900 Given 11/17/2020 7:59 AM CDT 10 mg pantoprazole (PROTONIX) 4 mg/mL injection 40 mg 40 mg, intravenous, Administer over 2 Minutes, Once, On Tue11/16/20 at 1917, For 1 dose, For IV Push administration for adults- 40 mg vial: add 10 mL of sodium chloride 0.9% to achieve a final concentration of 4 mg/mL, Indications: GI BleedIndications:GI Bleed Given 11/16/2020 7:23 PM CDT [address] (PROTONIX) extended release tablet 40 mg 40 mg, oral, Daily, First dose on Tue11/17/20 at 0900, Do not crush, chew, cut, dissolve, open or otherwise manipulate tablet/capsule., Indications: GI BleedIndications:GI Bleed Given 11/17/2020 7:59 AM CDT 40 mg potassium chloride ER (KLOR-CON) extended release tablet 20 mEq 20 mEq, oral, 3 times daily, First dose on Tue11/17/20 at 0900, Do not crush, chew, cut, dissolve, open or otherwise manipulate tablet/capsule. Given 11/17/2020 7:59 AM CDT 20 mEq documented in this encounter Discontinued Medications Medication Sig Discontinue Reason Start Date End Da te acetaminophen-codeine (TYLENOL with CODEINE #3) 300-30 mg per tablet Take 1-2 tablets by mouth every 4 (four) hours as needed Stop Taking at Discharge 04/23/2011 11/17/2020 metoprolol XL (TOPROL-XL) 50 mg extended release tablet Take by mouth Stop Taking at Discharge 06/09/2015 11/17/2020 documented as of this encounter Active and Recently Administered Medications Times are shown in CDT. Scheduled Medication Order 11/15/2020 11/16/2020 11/17/2020 allopurinoL (ZYLOPRIM) tablet 100 mg 100 mg, oral, 2 times daily, First dose on Tue11/17/20 at 0900 0757 (Given - Provider: Sally Diaz, HONG) cholecalciferol (VITAMIN D-3) capsule 2,000 Units 2,000 Units, oral, Daily, First dose on Tue11/17/20 at 0900 0758 (Given - Provider: Sally Diaz, HONG) fenofibrate nanocrystallized (TRICOR) tablet 48 mg 48 mg, oral, Daily, First dose on Tue11/17/20 at 0900 0758 (Given - Provider: Sally Diaz, HONG) gabapentin (NEURONTIN) capsule 300 mg 300 mg, oral, 4 times daily, First dose on Tue11/17/20 at 0800, Do not crush, break, or open. 0759 (Given - Provider: Sally Diaz RN)1156 (Given - Provider: Sally Diaz, HONG) lisinopriL (PRINIVIL,ZESTRIL) tablet 10 mg 10 mg, oral, Daily, First dose on Tue11/17/20 at 0900 0759 (Given - Provider: Sally Diaz RN) pantoprazole (PROTONIX) 4 mg/mL injection 40 mg (COMPLETED) 40 mg, intravenous, Administer over 2 Minutes, Once, On Tue11/16/20 at 1917, For 1 dose, For IV Push administration for adults- 40 mg vial: add 10 mL of sodium chloride 0.9% to achieve a final concentration of 4 mg/mL, Indications: GI Bleed 1922 (Given - Provider: Sarah Madden RN) pantoprazole DR (PROTONIX) extended release tablet 40 mg 40 mg, oral, Daily, First dose on Tue11/17/20 at 0900, Do not crush, chew, cut, dissolve, open or otherwise manipulate tablet/capsule., Indications: GI Bleed 0759 (Given - Provider: Sally Diaz RN) potassium chloride ER (KLOR-CON) extended release tablet 20 mEq 20 mEq, oral, 3 times daily, First dose on Tue11/17/20 at 0900, Do not crush, chew, cut, dissolve, open or otherwise manipulate tablet/capsule. 0759 (Given - Provider: Sally Diaz, HONG) PRN Medication Order 11/15/2020 11/16/2020 11/17/2020 acetaminophen (TYLENOL) tablet 650 mg 650 mg, oral, Every 4 hours PRN, 1st line for pain, fever, fever greater than 38.3 C, Starting on Tue11/17/20 at 0224, Indications: Fever, Pain documented in this encounter Orders Medications Ordered That Po ht Not Have Been Administered Count Last Ordered Date First Ordered Date acetaminophen (TYLENOL) tablet 650 mg 1 12/2020 pantoprazole (PROTONIX) 4 mg /mL injection 40 mg 1 11/16/2020 Nursing Count Last Ordered Date First Orde red Date DISCHARGE ACTIVITY 1 11/17/2020 WEIGH PATIENT 1 11/17/2020 CORE MEASURES Count Last Ordered Date First Ord ered Date REASON FOR NO VTE PROPHYLAXI S - HOSPITAL ADMISSION - MEDICATIONS 1 11/17/2020 ADT Patient Update Count Last Ordered Date Firs t Ordered Date ED IP DECISION TO ADMIT 1 11/16/2020 documented in this encounter Care Teams Overhead Foreman Relationship Specialty Start Date End Date Scott Randle DO PCP - General 11/14/20 01/15/21 documented as of this encounter
--- OUTSIDE RECORDS SUMMARY | 2024-01-30 08:19 | XMS_ITS | Encounter Summary ---
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 Received call from Dr. Moreno, would like to check IFX trough with pt's next infusion. Order added to pt's therapy plan. To be drawn with 11/29/21 infusion. In-basket msg sent to infusion team so that they are aware of this request. documented in this encounter Plan of Treatment Not on file documented as of this encounter Visit Diagnoses Not on filedocumented in this encounter Care Teams Hose Inspector Relationship Specialty Start Date End Date Scott Randle DO PCP - General 11/14/20 01/15/21 documented as of this encounter
--- OUTSIDE RECORDS SUMMARY | 2024-01-30 08:19 | XMS_ITS | Encounter Summary ---
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 Gender Identity Not on file Sexual Orientation Straight 04/01/2020 8: 42 PM ACCOUNTING POLICY CONSULTANT documented as of this encounter Plan of Treatment Not on file documented as of this encounter Procedures Procedure Name Priority Date/Time Associated Diagnosis Comments HEPATIC FUNCTION PANEL Routine 05/19/2020 8:05 AM CDT Crohn's disease of ileum with complication (CMS/HCC) documented in this encounter Results * Hepatic function panel (05/19/2020 8:05 AM CDT) Bilirubin, total 0.4 0.1 - 1.2 mg/dL [facility] Bilirubin, direct <0.2 0.1 - 0.3 mg/dL [facility] Protein, pl 7.1 6.5 - 8.5 g/dL [facility] Albumin 4.7 3.5 - 5.0 g/dL [facility] Alk phos 55 40 - 130 Units/L [facility] ALT 48 7 - 55 Units/L [facility] AST 35 10 - 50 Units/L [facility] Blood specimen (specimen) 05/19/2020 8:05 AM CDT 05/19/2020 10:57 AM CDT us Julia Moreno MD LAB BLOOD ORDERABLE S Final Result Performing Organization Address City/State/[facility] Co de Phone Number [facility] Department [place] [address] documented in this encounter Visit Diagnoses Diagnosis Crohn's disease of ileum with complication (HCC) documented in this encounter Care Teams Drum Attendant Relationship Specialty Start Date End Date Scott Randle DO PCP - General Family Medicine 02/06/20 11/13/20 documented as of this encounter
--- OUTSIDE RECORDS SUMMARY | 2024-01-30 08:19 | XMS_ITS | Encounter Summary ---
Author Organization [facility] Address [address] [place] [address] Phone Care Team Providers Care Continuous Absorption Process Operator Name Role Phone Scott Randle DO Primary Care Provider [phone] Encounter Details Date Type Department Care Team (Late st Contact Info) Description 05/19/2020 8:40 AM CDT Lab [facility] Metabolism and Lipid [address] 5th [place] [address] [place] [address] Crohn's disease of ileum with complication (CMS/HCC) Social History Tobacco Use Types Packs/Day Years Used Date Smoking Tobacco: Never Sex and Gender Information Value Date Recorded Sex Assigned at Not on file 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
--- OUTSIDE RECORDS SUMMARY | 2024-01-30 08:19 | XMS_ITS | Encounter Summary ---
Author Organization [facility] Address [address] [place] [address] Phone Care Team Providers Care Crop Farm Workers Name Role Phone Scott Randle DO Primary Care Provider [phone] Reason for Visit * Episode Based Medications (Routine) - Closed Specialty Diagnoses / Procedures Referred By Contabhishek t Referred To Contact Diagnoses Crohn's disease of ileum with complication (HCC) Procedures [place] INFLIXIMAB NOT BIOSIMIL 10MG Julia Moreno MD [address] [place] [address] Phone: tel: fax: [facility] Infusion Therapy [facility] [facility] 5th [place] [address] [place] [address] Phone: tel: fax: Referral ID Status Reason Start Date Expiration Date Visits Re quested Visits Authorized [id number] Closed 08/31/2022 09/01/2023 26 26 Encounter Details Date Type Department Care Team (Late st Contact Info) Description 09/08/2020 1:00 PM CDT Infusion [facility] Infusion Therapy [address] [place] [address] 5th [place] [address] Crohn's disease of ileum with complication (CMS/HCC) (HCC) (Primary Dx) Social History Tobacco Use Types Packs/Day Years Used Date Smoking Tobacco: Never Sex and Gender Information Value Date Recorded Sex Assigned at Not on file 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 IV placed in left ac. Labs drawn. VSS. PO tylenol and benadryl given. Tolerated well, no adverse reactions. Follow up appointment scheduled for 8 weeks out.No concerns. documented in this encounter Plan of Treatment Not on file documented as of this encounter Procedures Procedure Name Priority Date/Time Associated Diagnosis Comments CBC WITH AUTO DIFFERENTIAL Routine 09/08/2020 12:50 PM CDT Crohn's disease of ileum with complication (CMS/HCC) (HCC) HEPATIC FUNCTION PANEL Routine 09/08/2020 12:50 PM CDT Crohn's disease of ileum with complication (CMS/HCC) (HCC) documented in this encounter Results * Hepatic function panel (09/08/2020 12:50 PM CDT) Direct Bilirubin 0.10 0.00 - 0.30 mg/dL [facility] AST (SGOT) 24 11 - 47 IU/L [facility] ALT (SGPT) 36 6 - 53 IU/L [facility] Alk Phos, Total 51 35 - 129 IU/L [facility] Albumin 4.7 3.5 - 5.2 g/dL [facility] Total Bilirubin 0.54 0.20 - 1.40 mg/dL [facility] Total Protein 7.3 6.1 - 8.4 g/dL [facility] Blood specimen (specimen) 09/08/2020 12:50 PM CDT 09/08/2020 2:10 PM CDT us Julia Moreno MD LAB BLOOD ORDERABLE S Final Result [facility] * CBC with auto differential (09/08/2020 12:50 PM CDT) White Blood Count 6.3 3.6 - 11.2 K/uL [facility] RBC 5.01 4.06 - 5.63 M/uL [facility] Hemoglobin 16.1 13.0 - 17.5 g/dL [facility] Hematocrit 45.5 40.7 - 50.3 % [facility] MCV 90.8 80.0 - 97.6 fL [facility] MCH 32.1 26.7 - 33.7 pg [facility] MCHC 35.4 32.7 - 35.5 g/dL [facility] RBC Dist Width 12.7 12.3 - 17.0 % [facility] Platelet Count 205 140 - 440 K/uL [facility] MPV 8.7 6.8 - 10.4 fL [facility] Neutrophils % 62.9 38.7 - 74.5 % [facility] Lymphocyte % 28.1 20.0 - 54.3 % [facility] Monocytes % 7.2 4.3 - 13.5 % [facility] Eosinophils % 1.4 0.0 - 6.0 % [facility] Basophil % 0.4 0.0 - 3.0 % [facility] Absolute Neutrophil 4.0 1.8 - 6.6 K/uL [facility] Absolute Lymphocyte 1.8 0.8 - 3.3 K/uL [facility] Absolute Monocyte 0.5 0.2 - 1.2 K/uL [facility] Absolute Eosinophil 0.1 0.0 - 0.5 K/uL [facility] Absolute Basophil 0.0 0.0 - 0.2 K/uL [facility] Nucleated RBC % 0.3 0.0 - 0.4 /100 WBC [facility] Blood specimen (specimen) 09/08/2020 12:50 PM CDT 09/08/2020 2:10 PM CDT Julia Moreno MD LAB BLOOD ORDERABLE S Final Result [facility] documented in this encounter Visit Diagnoses Diagnosis Crohn's disease of ileum with complication (HCC)- Primary documented in this encounter Administered Medications Inactive Administered Medications - up to 3 most recent administrations Medication Order MAR Action Action Date Dose Rate Site acetaminophen (TYLENOL) tablet 500 mg 500 mg, oral, Once, On Tue09/08/20 at 1345, For 1 dose, Please give 30 minutes prior to infusion for infusion reaction prophylaxis.Indications:Crohn's disease of ileum with complication (HCC) Given 09/08/2020 12:48 PM CDT 500 mg diphenhydrAMINE (BENADRYL) tab/cap 25 mg 25 mg, oral, Once, On Tue09/08/20 at 1345, For 1 dose, Please give 30 minutes prior to infusion for infusion reaction prophylaxis.Indications:Crohn's disease of ileum with complication (HCC) Given 09/08/2020 12:48 PM CDT 25 mg inFLIXimab (REMICADE) 600 mg in sodium chloride 0.9% 250 mL IVPB 600 mg, intravenous, Administer over 2 Hours, Once, On Tue09/08/20 at 1345, For 1 dose, Infuse with filter tubing [...] of ileum with complication (HCC) New Bag 09/08/2020 1:02 PM CDT 600 mg documented in this encounter Care Teams Crop Farm Workers Relationship Specialty Start Date End Date Scott Randle DO PCP - General Family Medicine 02/06/20 11/13/20 documented as of this encounter
--- OUTSIDE RECORDS SUMMARY | 2024-01-30 08:19 | XMS_ITS | Encounter Summary ---
Author Organization [facility] Healthcare Address [address] [place] [address] Care Team Providers Care Rn Womens Health Name Role Phone Scott Randle DO Primary Care Provider [phone] Reason for Visit * Reason Comments Chart Review Encounter Details Date Type Department Care Team (Late st Contact Info) Description 11/18/2020 SHOP/CHAP Initial Eligibility Review [facility] [address] [place] [address] Rosalba Marino RN [address] [facility] [address] [place] [address] Social History Tobacco Use Types Packs/Day Years [...] on file Legal Sex Male 8:42 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
--- OUTSIDE RECORDS SUMMARY | 2024-01-30 08:19 | XMS_ITS | Encounter Summary ---
Author Organization [facility] Healthcare Address [address] [address] Care Team Providers Care Lumber Hacker Name Role Phone Scott Randle DO Primary Care Provider [phone] [phone] Encounter Details Date Type Department Care Team (Late st Contact Info) Description 11/14/2020 8:30 AM CDT - 11/14/2020 9:00 AM CDT Surgery [facility] Endoscopy [address] [place] [address] Julia Moreno MD [address] [place], [place] [id number] ENDO POUCHOSCOPY REMOVAL TISSUE VIA SNARE Surgery Details Date/Time Status Location OR Service Patient Class Case Class Case Type Trauma Case? 11/14/2020 8:30 AM Posted [facility] ENDOSCOPY Endo 01 Gastroenterology Outpatient Elective Panel 1 Procedure LRB Anes Op Region Wound Class Comments ENDO POUCHOSCOPY REMOVAL TISSUE VIA SNARE Left Monitor Anesthesia Care N/A ENDO ADD ON POUCHOSCOPY BIOPSY N/A Choice Surgeon Surgeon Role Service Panel Julia Moreno [...] on file Legal Sex Male 8:42 AM FLEET OPERATIONS MANAGER Gender Identity Not on file Sexual Orientation Straight 04/01/2020 8: 42 PM FLEET OPERATIONS MANAGER documented as of this encounter Last Filed Vital Signs Vital Sign Reading Time Taken Comments Blood Pressure 129/83 11/14/2020 8:30 AM CDT Pulse 53 11/14/2020 8:30 AM CDT Temperature 36.3 ??C (97.3 ??F) 11/14/2020 7:42 AM CD T Respiratory Rate 24 11/14/2020 8:30 AM CDT Oxygen Saturation 95% 11/14/2020 8:30 AM CDT Inhaled Oxygen Concentration - - Weight 116.6 kg (257 lb) 11/14/2020 7:42 AM CDT Height 182.9 cm (6') 11/14/2020 7:42 AM CDT Body Mass Index 34.86 11/14/2020 7:42 AM CDT documented in this encounter Discharge Instructions * Attachments The following attachments cannot be sent through Care Everywhere. * Procedural Sedation (AfterCare(R) Instructions(ER/ED)) (German) documented in this encounter Medications at Time [...] CDT Pre Endoscopy History and Physical Bridgette Spence is a 60 y.o. male who is here for Procedure(s): POUCHOSCOPY The indication(s) for the procedure(s): ibd. Past Medical History: Diagnosis Date ??? GERD (gastroesophageal reflux disease) ??? HTN (hypertension) ??? Liver hemangioma ??? Nephrolithiasis Past Surgical History: Procedure Laterality Date ??? ABDOMINAL WALL DEFECT REPAIR 2013 reconstruction ??? CYSTOSCOPY W/ LASER LITHOTRIPSY Right 2018 ??? HEMANGIOMA EXCISION 2016 liver ??? RESTORATIVE PROCTOCOLECTOMY 2003 J-pouch ??? VENTRAL HERNIA REPAIR 06/2009, 07/2009 Social History Tobacco Use ??? Smoking status: Never Smoker Substance Use Topics ??? Alcohol use: Not on file Family History Problem Relation Age of Onset ??? Cancer Father ??? Hypertension Father Allergies Allergen Reactions ??? Fruit Extracts Hives Tomatoes and oranges ??? Iron Rash ??? [place] Juice Hives ??? [place] Oil Hives ??? Sulfa (Sulfonamide Antibiotics) Hives [...] CAPSULE BY MOUTH 4 TIMES DAILY. 10/23/20 Amie Odonnell MD inFLIXimab (REMICADE) 100 mg [...] Take by mouth 06/09/15 Amie Odonnell MD [id number] tablet Take 1 tablet by mouth daily [...] Order(s): POUCHOSCOPY ENDOSCOPY LAB Patient Name: Bridgette Spence Procedure Date: 11/14/2020 8:48 AM Date of : 1960 Admit Type: Outpatient Age: 60 Gender: Male Attending MD: Julia Moreno M.D. Room: [facility] ENDOSCOPY ROOM 01 Note Status: Finalized Procedure: [...] and oxygen saturations were monitored continuously. The [id number] was introduced through the ileoanal anastomosis via [...] prep When you arrive, please come to [facility] hospital entrance. As you enter there will [...] mask at all times If this person(your taxi driver supervisor)chooses not to come inside or will be [...] biopsy) 11/14/2020 9:04 AM CDT Narrative PATHOLOGY W - 11/18/2020 3:51 PM CDT EPIC results best viewed via link to PDF [facility] [place] [address] Note to Patients: This report may contain [...] PATHOLOGY REPORT FINAL Patient Name: ?? BRIDGETTE SPENCE Gender: ??M : ??1960 (Age: 60) Address: ??[address] [place] [id number] Hospital #: ??[id number] Taken:11/14/2020 Received:11/14/2020 Reported: 11/18/2020 Patient Type: [facility] Client ?BJW Service: Gastro Location: [facility] Physician(s): ??Julia Moreno M.D. Mike Mitchell M.D. [...] ??Labeled B1. ??Jar 0. cnewho/11/14/2020 13:54 PA(s): CATINA Diaz, CT ([facility]) By this signature, I attest that the above diagnosis is based upon my personal examination of the slides(and/or other material). Addenda/Procedures The performance characteristics of some immunohistochemical stains, fluorescence in-situ hybridization tests and immunophenotyping by flow cytometry cited in this report (if any) were determined by the Surgical Pathology and Flow Cytometry Departments at [facility] as part of an ongoing water quality control engineer program and in compliance with federally mandated [...] Health and Human Services as a high complexity laboratory under CLIA '88. ??The FDA has [...] Surgical Pathology and Flow Cytometry Departments of [facility]. ??It has not been cleared or approved by the U. S. Food and Drug Administration. IMAGES AND SCANNED DOCUMENTS, IF INCLUDED, ONLY VIEWABLE IN PDF VERSION OF REPORT us Julia Moreno MD LAB PATHOLOGY ORDER MAGO Final Result PATHOLOGY [facility] [phone] * POUCHOSCOPY (11/14/2020 8:48 AM CDT) Anatomical Region Laterality Modality Other Narrative Procedure Note Julia Moreno MD - 11/14/2020 8:48 AM CDT ENDOSCOPY LAB Patient Name: Bridgette Spence Procedure Date: 11/14/2020 8:48 AM Date of : 1960 Admit Type: Outpatient Age: 60 Gender: Male Attending MD: Julia Moreno M.D. Room: [facility] ENDOSCOPY ROOM 01 Note Status: Finalized Procedure: [...] and oxygen saturations were monitored continuously. The [id number] was introduced through theileoanal anastomosis via the [...] 0 Note Initiated On: 11/14/2020 8:48 AM Julia Moreno MD ENDOSCOPY PROCEDURE S Final Result documented in this encounter Visit Diagnoses Diagnosis Crohn's disease of ileum with complication (HCC) Crohn's disease of ileum with complication (HCC) [...] 09/2020 documented in this encounter Care Teams Lumber Hacker Relationship Specialty Start Date End Date Scott Randle DO PCP - General 11/14/20 01/15/21 documented as of this encounter
--- OUTSIDE RECORDS SUMMARY | 2024-01-30 08:19 | XMS_ITS | Encounter Summary ---
Author Organization [facility] Address [address] [place] [address] Phone Care Team Providers Care Beamer Hand Name Role Phone Scott Randle DO Primary Care Provider [phone] Reason for Visit * Episode Based Medications (Routine) - Closed Specialty Diagnoses / Procedures Referred By Contabhishek t Referred To Contact Diagnoses Crohn's disease of ileum with complication (HCC) Procedures [place] INFLIXIMAB NOT BIOSIMIL 10MG Julia Moreno MD [address] [place] [address] Phone: tel: fax: [facility] Infusion Therapy [facility] 5[address] [place] [address] [place] [address] Phone: tel: fax: Referral ID Status Reason Start Date Expiration Date Visits Re quested Visits Authorized [id number] Closed 08/31/2022 09/01/2023 26 26 Encounter Details Date Type Department Care Team (Late st Contact Info) Description 01/05/2021 9:30 AM WIPING RAG WASHER Infusion [facility] Infusion Therapy [facility] [address] [place] [address] Crohn's disease of ileum with [...] on file Legal Sex Male 8:42 AM WIPING RAG WASHER Gender Identity Not on file Sexual Orientation Straight 04/01/2020 8: 42 PM WIPING RAG WASHER documented as of this encounter Last Filed Vital Signs Vital Sign Reading Time Taken Comments Blood Pressure 129/83 01/05/2021 11:50 AM WIPING RAG WASHER Pulse 73 01/05/2021 11:50 AM WIPING RAG WASHER Temperature - - Respiratory Rate - - Oxygen Saturation - - Inhaled Oxygen Concentration - - Weight - - Height - - Body Mass Index - - documented in this encounter Progress Notes * Lubna Gaspar RN - 01/05/2021 9:30 AM CST Pt to infusion center for Remicade 600 mg. VSS. INFLIXIMAB level drawn prior to infusion-sent STAT on ice. Tolerated infusion without adverse reaction. Follow up scheduled in 8 weeks. NG RAG WASHER documented in this encounter Plan of Treatment Not on file documented as of this encounter Procedures Procedure Name Priority Date/Time Associated Diagnosis Comments CBC WITH AUTO DIFFERENTIAL Routine 01/05/2021 9:40 AM WIPING RAG WASHER Crohn's disease of ileum with complication (CMS/HCC) (HCC) HEPATIC FUNCTION PANEL Routine 01/05/2021 9:40 AM WIPING RAG WASHER Crohn's disease of ileum with complication (CMS/HCC) (HCC) documented in this encounter Results * Hepatic function panel (01/05/2021 9:40 AM WIPING RAG WASHER) Direct Bilirubin 0.08 0.00 - 0.30 mg/dL [facility] AST (SGOT) 30 11 - 47 IU/L [facility] ALT (SGPT) 36 6 - 53 IU/L [facility] Alk Phos, Total 55 35 - 129 IU/L [facility] Albumin 4.7 3.5 - 5.2 g/dL [facility] Total Bilirubin 0.27 0.20 - 1.40 mg/dL [facility] Total Protein 7.4 6.1 - 8.4 g/dL [facility] Blood specimen (specimen) 01/05/2021 9:40 AM WIPING RAG WASHER 01/05/2021 10:14 AM WIPING RAG WASHER us Julia Moreno MD LAB BLOOD ORDERABLE S Final Result [facility] * (ABNORMAL) CBC with auto differential (01/05/2021 9:40 AM WIPING RAG WASHER) White Blood Count 6.4 3.6 - 11.2 K/uL [facility] RBC 4.98 4.06 - 5.63 M/uL [facility] Hemoglobin 16.0 13.0 - 17.5 g/dL [facility] Hematocrit 44.9 40.7 - 50.3 % [facility] MCV 90.1 80.0 - 97.6 fL [facility] MCH 32.1 26.7 - 33.7 pg [facility] MCHC 35.6(H) 32.7 - 35.5 g/dL [facility] RBC Dist Width 12.0(L) 12.3 - 17.0 % [facility] Platelet Count 221 140 - 440 K/uL [facility] MPV 8.6 6.8 - 10.4 fL [facility] Neutrophils % 70.5 38.7 - 74.5 % [facility] Lymphocyte % 19.9(L) 20.0 - 54.3 % [facility] Monocytes % 7.3 4.3 - 13.5 % [facility] Eosinophils % 1.8 0.0 - 6.0 % [facility] Basophil % 0.5 0.0 - 3.0 % [facility] Absolute Neutrophil 4.5 1.8 - 6.6 K/uL [facility] Absolute Lymphocyte 1.3 0.8 - 3.3 K/uL [facility] Absolute Monocyte 0.5 0.2 - 1.2 K/uL [facility] Absolute Eosinophil 0.1 0.0 - 0.5 K/uL [facility] Absolute Basophil 0.0 0.0 - 0.2 K/uL [facility] Nucleated RBC % 0.1 0.0 - 0.4 /100 WBC [facility] Blood specimen (specimen) 01/05/2021 9:40 AM WIPING RAG WASHER 01/05/2021 10:14 AM WIPING RAG WASHER us Julia Moreno MD LAB BLOOD ORDERABLE [...] 500 mg 500 mg, oral, Once, On Tue01/05/21 at 1000, For 1 dose, Please give 30 minutes prior to infusion for infusion reaction prophylaxis.Indications:Crohn's disease of ileum with complication (HCC) Given 01/05/2021 9:45 AM WIPING RAG WASHER 500 mg inFLIXimab (REMICADE) 600 mg in sodium chloride 0.9% 250 mL IVPB 600 mg, intravenous, Administer over 2 Hours, Once, On Tue01/05/21 at 1000, For 1 dose, Infuse with [...] of ileum with complication (HCC) New Bag 01/05/2021 9:45 AM WIPING RAG WASHER 600 mg documented in this encounter Orders Medications Ordered That Po ht Not Have Been Administered Count Last Ordered Date First Ordered Date diphenhydrAMINE (BENADRYL) tab/cap 25 mg 1 01/05/2021 Nursing Count Last Ordered Date First Orde red Date HEIGHT AND WEIGHT 1 01/05/2021 ONCBCN NURSING COMMUNICATION [id number] 1 03/07/2020 VITAL SIGNS INTRA-INFUSION 1 01/05/2021 VITAL SIGNS POST-INFUSION 1 01/05/2021 documented in this encounter Care Teams Beamer Hand Relationship Specialty Start Date End Date Scott Randle DO PCP - General 11/14/20 01/15/21 documented as of this encounter
--- OUTSIDE RECORDS SUMMARY | 2024-01-30 08:19 | XMS_ITS | Encounter Summary ---
Author Organization [facility] Address [address] [facility] [address] [place] [address] Phone Care Team Providers Care Assistant Professor Of German Name Role Phone AdriánjonnieScott AWesley DE LEON Primary Care Provider [phone] [phone] Encounter Details Date Type Department Care Team (Late st Contact Info) Description 11/16/2020 Documentation [facility] Gastroenterology [address] 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 Kerr that he has been having a lot of blood in his BMs since his procedure on Tuesday. If anything he feels like the bleeding is getting worse. He has also been feeling lightheaded and dizzy. Given his symptoms I advised him to go to the ED since I think it is likely that he will require fluids and at the very least needs to have his labs checked. The patient and his plan to go to [place] ED. documented in this encounter Plan of Treatment Not on file documented as of this encounter Visit Diagnoses Not on filedocumented in this encounter Care Teams Assistant Professor Of German Relationship Specialty Start Date End Date Scott Randle DO PCP - General 11/14/20 01/15/21 documented as of this encounter
--- OUTSIDE RECORDS SUMMARY | 2024-01-30 08:19 | XMS_ITS | Encounter Summary ---
Author Organization [facility] Address [address] [place] [address] Phone Care Team Providers Care Cosmetics And Toiletries Salesperson Name Role Phone Mike Mitchell MD Primary Care Provider [phone] Reason for Visit * Consultation (Routine) - Closed Specialty Diagnoses / Procedures Referred By Roberto moura Referred To Contact Minimally Invasive Surgery Diagnoses Ventral hernia without obstruction or gangrene Scott Randle DO Phone: tel: fax: [facility] (All Locations) Referral ID Status Reason Start Date Expiration Date V isits Requested Visits Authorized [id number] Closed Specialty Services Required 12/29/2020 01/28/2022 1 1 Encounter Details Date Type Department Care Team (Late st Contact Info) Description 01/16/2021 9:15 AM MANAGER ASSESSMENT Office Visit [facility] Surgery [address] [facility] [address] [place] [address] [place] [address] Ky Sheth MD [address] [place] [address] Incisional hernia, without obstruction or gangrene Social History Tobacco Use Types Packs/Day Years [...] file Legal Sex Male 8:42 AM MANAGER ASSESSMENT Gender Identity Not on file Sexual Orientation Straight 04/01/2020 8: 42 PM MANAGER ASSESSMENT documented as of this encounter Last Filed Vital Signs Vital Sign Reading Time Taken Comments Blood Pressure 149/93 01/16/2021 9:08 AM MANAGER ASSESSMENT Pulse 74 01/16/2021 9:08 AM MANAGER ASSESSMENT Temperature 36.9 ??C (98.4 ??F) 01/16/2021 9:08 AM CS T Respiratory Rate - - Oxygen Saturation - - Inhaled Oxygen Concentration - - Weight 114.1 kg (251 lb 9.6 oz) 01/16/2021 9:08 AM MANAGER ASSESSMENT Height 182.9 cm (6') 01/16/2021 9:08 AM MANAGER ASSESSMENT Body Mass Index 34.12 01/16/2021 9:08 AM MANAGER ASSESSMENT documented in this encounter Patient Instructions * Patient Instructions* Ky Sheth MD - 01/16/2021 9:15 AM MANAGER ASSESSMENT Images from the original note were not included. Scheduling surgery: You should expect a call from our office in the next 5-7 business days to schedule your operation. If you do not hear from us in that time please call us at [phone]. If your case is to be performed in combination with another surgeon this may take some increased time to coordinate. Anesthesia Evaluation (CPAP): You will receive information on your pre-admission anesthesia visit when we schedule your surgery. This will ideally occur 3-4 weeks before your surgery date. New / Worsening symptoms: If you have any acute problems between now and your surgery date such as worsening pain, vomiting or other concerns do not hesitate to contact our office. If it is an emergency, please call 911, or proceed to your nearest emergency room. We have implemented a new online interactive rcip-we-yith guide to help you through your surgery and recovery called SabalessMD. This can be accessed from a smartphone, tablet and or computer. Our patients have found it incredibly helpful, and a great resource. You should be getting an email with instructions on how to sign up. We are encouraging all patients to sign up and give it a try. Please let us know if you have any questions. GER ASSESSMENT documented in this encounter Progress Notes * Ky Sheth MD - 01/16/2021 9:15 AM CST Images from the original note were not included. [facility] Minimally Invasive Surgery Established Patient Kris Spence [id number] 1960 REFERRING PHYSICIAN - Scott Randle DO PCP - Scott Randle DO HISTORY OF PRESENT ILLNESS: The patient is a 60 y.o. male PMH Crohns s/p J-pouch with multiple prior failed hernia repairs including an anterior component separation and strattice mesh who presents for follow up of his ventral hernia. At the time of his last visit, he was trying to establish care with a [facility] customer marketing intern and so surgery was deferred. He has since established care with Dr. Moreno. He is currently on remicaide for his Crohns and is planning to increase the dose at the time of the next infusion due to low levels. Per patient, Dr. Moreno felt he was at a good point toreach back out about surgery. In terms of his hernia, it is starting to bother him more. He occasionally has to reduce one of thelower defects and feels like bowel gets stuck in there and exacerbates his reflux. Denies vomiting or constipation, has multiple BMs daily (8-10 at baseline). The upper hernia defect is getting larger and causes him more discomfort. His weight has been stable. PHYSICAL EXAMINATION: Ht: 182.9 cm (6') Wt: 114.1 kg (251 lb 9.6 oz) BMI: Body mass index is 34.12 kg/m??. BP 149/93 Pulse 74 Temp 36.9 ??C (98.4 ??F) Ht 182.9 cm (6') Wt 114.1 kg (251 lb 9.6 oz) BMI 34.12 kg/m?? GENERAL: Well-appearing individual in no acute distress. NEURO: Alert and oriented x3, mood and affect appropriate. HEENT: Pupils equal. EOMs grossly normal. LUNGS: Breathing comfortably on room air. No audible wheezes. CARDIO: Regular rate and rhythm. SKIN: Smooth and dry. No rash. ABDOMEN: Midline laparotomy well healed, large upper abdominal bulge, reducible, smaller defect at midpoint of his laparotomy incision that had some incarcerated bowel that was reducible EXTREMITIES: No venous stasis changes. ASSESSMENT AND PLAN: 60 yo M PMH Crohns s/p J-pouch with multiple prior failed hernia repairs including an anterior component separation and strattice mesh who presents for follow up of his ventral hernia. He and his customer marketing intern feel he is at a good point to proceed with surgery. As previously discussed due to the size and number of his defects as well as his prior hernia repairs,I think he would be best served by an open approach for his abdominal wall reconstruction. We discussed the risks, benefits, alternatives to surgery at length with the patient and his . We also discussed the expected recovery and planned use of mesh. He would like to proceed with repair. We will coordinate with Dr. Moreno's office to determine how long he needs to be off his remicaide prior to surgery. Maegan Anna MD MPH General Surgery, PGY-4 TEACHING ATTESTATION I have seen and examined the patient along with the resident and agree with their note and plan as documented above. Briefly, patient is a 60 y.o. male presenting for further follow-up of a known recurrent large abdominal wall hernia. At the time of his last visit he was working on getting stable control of his Crohn's disease and since then is doing much better on Remicade. He reports that his hernia has enlarged since his last visit and now has episodes of where he must manually reduce 1 of the defects. Givenhis complex surgical history and previous repairs he is going to be best served by an open incisional hernia and abdominal reconstruction. Risks/benefits/alternatives to surgery were discussed with the patient and their family. The risks of the surgery discussed included but weren't limited to bleed ing, infection, potential injury to surrounding structures and bowel, planned use of mesh, hernia recurrence and anesthesia associated complications. He was given the opportunity to ask any questionsand they were all answered. He is in agreement with the plan. Ky Sheth MD Minimally Invasive GI Surgery & Abdominal Wall Reconstruction custom garment designer [facility] [phone] GER ASSESSMENT documented in this encounter Plan of Treatment Not on file documented as of this encounter Visit Diagnoses Diagnosis Incisional hernia, without obstruction or gangrene documented in this encounter Discontinued Medications Medication Sig Discontinue Reason Start Date End Da te fenofibrate nanocrystallized (TRICOR) 48 mg tablet Take 48 mg by mouth daily 10/14/2020 01/16/2021 iron,carbonyl-vitamin C 65 mg iron- 125 mg tablet,delayed release (DR/EC) Take by mouth 01/16/2021 ondansetron ODT (ZOFRAN-ODT) 4 mg disintegrating tablet Take 4 mg by mouth every 8 (eight) hours as needed 04/05/2017 01/16/2021 documented as of this encounter Historical Medications * This list may reflect changes made after this encounter. UNABLE TO FIND Take 1 each by mouth every morning Chewable magnesium 3 UNABLE TO FIND Vitron C iron plus vitamin c qd 2 added in this encounter Orders Outpatient Referral Count Last Ordered Date Fir st Ordered Date AMB REFERRAL TO MINIMALLY INVASIVE SURGERY 1 01/16/2021 documented in this encounter Care Teams Cosmetics And Toiletries Salesperson Relationship Specialty Start Date End Date Mike Mitchell MD PCP - General Family Practice 01/16/21 documented as of this encounter
--- OUTSIDE RECORDS SUMMARY | 2024-01-30 08:19 | XMS_ITS | Encounter Summary ---
Author Organization [facility] Address [address] [place] [address] Phone Care Team Providers Care Sales And Support Center Agent Name Role Phone Scott Randle DO Primary Care Provider [phone] Encounter Details Date Type Department Care Team (Late st Contact Info) Description 07/14/2020 2:15 PM CDT Lab [facility] Endocrinology Metabolism and Lipid [address] [facility] 5th [place] [address] [place] [address] Crohn's disease of ileum with complication (CMS/HCC) Social History Tobacco Use Types Packs/Day Years Used Date Smoking Tobacco: Never Sex and Gender Information Value Date Recorded Sex Assigned at Not on file Legal Sex Male 8:42 AM FINANCIAL DIRECTOR Gender Identity Not on file Sexual Orientation Straight 04/01/2020 8: 42 PM FINANCIAL DIRECTOR documented as of this encounter Plan of Treatment Not on file documented as of this encounter Visit Diagnoses Diagnosis Crohn's disease of ileum with complication (HCC) documented in this encounter Care Teams Sales And Support Center Agent Relationship Specialty Start Date End Date Scott Randle DO PCP - General Family Medicine 02/06/20 11/13/20 documented as of this encounter
--- OUTSIDE RECORDS SUMMARY | 2024-01-30 08:19 | XMS_ITS | Encounter Summary ---
Author Organization [facility] Address [address] [place] [address] Phone Care Team Providers Care Laser Beam Cutter Name Role Phone Scott Randle DO Primary Care Provider [phone] [phone] Reason for Visit * Episode Based Medications (Routine) - Closed Specialty Diagnoses / Procedures Referred By Contabhishek t Referred To Contact Diagnoses Crohn's disease of ileum with complication (HCC) Procedures [place] INFLIXIMAB NOT BIOSIMIL 10MG Julia Moreno MD [address] [place] [address] Phone: tel: fax: [facility] Infusion Therapy [facility] 5th [place] [address] [place] [address] Phone: tel: fax: Referral ID Status Reason Start Date Expiration Date Visits Re quested Visits Authorized [id number] Closed 08/31/2022 09/01/2023 26 26 Encounter Details Date Type Department Care Team (Late st Contact Info) Description 05/19/2020 8:00 AM CDT Infusion [facility] Infusion Therapy [address] [place] [address] 5th [place] [address] Crohn's disease of ileum with complication (CMS/HCC) (Primary Dx) Social History Tobacco Use Types Packs/Day Years Used Date Smoking Tobacco: Never Sex and Gender Information Value Date Recorded Sex Assigned at Not on file Legal Sex 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 IV placed in left ac. Labs drawn. VSS. Pre-med's given. Tolerated well, no adverse reactions. Follow up appointment scheduled for 8 weeks out. No concerns. documented in this encounter Plan of Treatment Not on file documented as of this encounter Procedures Procedure Name Priority Date/Time Associated Diagnosis Comments CBC WITH AUTO DIFFERENTIAL Routine 05/19/2020 8:05 AM CDT Crohn's disease of ileum with complication (CMS/HCC) documented in this encounter Results * Hepatic function panel (05/19/2020 8:05 AM CDT) Bilirubin, total 0.4 0.1 - 1.2 mg/dL [facility] Bilirubin, direct <0.2 0.1 - 0.3 mg/dL [facility] Protein, pl 7.1 6.5 - 8.5 g/dL [facility] Albumin 4.7 3.5 - 5.0 g/dL [facility] Alk phos 55 40 - 130 Units/L [facility] ALT 48 7 - 55 Units/L [facility] AST 35 10 - 50 Units/L [facility] Blood specimen (specimen) 05/19/2020 8:05 AM CDT 05/19/2020 10:57 AM CDT Julia Moreno MD LAB BLOOD ORDERABLE S Final Result [facility] [place] [address] * CBC with auto differential (05/19/2020 8:05 AM CDT) White Blood Count 5.2 3.6 - 11.2 K/uL [facility] RBC 4.96 4.06 - 5.63 M/uL [facility] Hemoglobin 15.7 13.0 - 17.5 g/dL [facility] Hematocrit 45.1 40.7 - 50.3 % [facility] MCV 90.9 80.0 - 97.6 fL [facility] MCH 31.6 26.7 - 33.7 pg [facility] MCHC 34.7 32.7 - 35.5 g/dL [facility] RBC Dist Width 13.0 12.3 - 17.0 % [facility] Platelet Count 204 140 - 440 K/uL [facility] MPV 8.6 6.8 - 10.4 fL [facility] Neutrophils % 54.0 38.7 - 74.5 % [facility] Lymphocyte % 32.5 20.0 - 54.3 % [facility] Monocytes % 9.8 4.3 - 13.5 % [facility] Eosinophils % 2.9 0.0 - 6.0 % [facility] Basophil % 0.8 0.0 - 3.0 % [facility] Absolute Neutrophil 2.8 1.8 - 6.6 K/uL [facility] Absolute Lymphocyte 1.7 0.8 - 3.3 K/uL [facility] Absolute Monocyte 0.5 0.2 - 1.2 K/uL [facility] Absolute Eosinophil 0.2 0.0 - 0.5 K/uL [facility] Absolute Basophil 0.0 0.0 - 0.2 K/uL [facility] Nucleated RBC % 0.3 0.0 - 0.4 /100 WBC [facility] Blood specimen (specimen) 05/19/2020 8:05 AM CDT 05/19/2020 8:44 AM CDT us Julia Moreno MD LAB BLOOD ORDERABLE S Final Result [facility] documented in this encounter Visit Diagnoses Diagnosis Crohn's disease of ileum with complication (HCC)- Primary documented in this encounter Administered Medications Inactive Administered Medications - up to 3 most recent administrations Medication Order MAR Action Action Date Dose Rate Site acetaminophen (TYLENOL) tablet 500 mg 500 mg, oral, Once, On Tue05/19/20 at 0900, For 1 dose, Please give 30 minutes prior to infusion for infusion reaction prophylaxis.Indications:Crohn's disease of ileum with complication (HCC) Given 05/19/2020 8:04 AM CDT 500 mg diphenhydrAMINE (BENADRYL) tab/cap 25 mg 25 mg, oral, Once, On Tue05/19/20 at 0900, For 1 dose, Please give 30 minutes prior to infusion for infusion reaction prophylaxis.Indications:Crohn's disease of ileum with complication (HCC) Given 05/19/2020 8:04 AM CDT 25 mg inFLIXimab (REMICADE) 600 mg in sodium chloride 0.9% 250 mL IVPB 600 mg, intravenous, Administer over 2 Hours, Once, On Tue05/19/20 at 0930, For 1 dose, Infuse with filter tubing LOADING DOSE: Administer on weeks 0, 2, and 6. For 200 ml. lnititate therapy at 10mI/hour x 15 minutes then Increase to 20ml/hour x 15 minutes then Increase to 40ml/hour x 15 minutes then Increase to 80ml/hour x 15 minutes then Increase to 150ml/hour x 30 minutes then Increase to 250ml/hour x 30 minutes until infusion is complete. FOR REACTIONS-STOP INFUSION. For 500 ml: Initiate [...] of ileum with complication (HCC) New Bag 05/19/2020 8:16 AM CDT 600 mg documented in this encounter Care Teams Laser Beam Cutter Relationship Specialty Start Date End Date Scott Randle DO PCP - General Family Medicine 02/06/20 11/13/20 documented as of this encounter
--- OUTSIDE RECORDS SUMMARY | 2024-01-30 08:19 | XMS_ITS | Encounter Summary ---
Author Organization [facility] Address [address] [place] [address] Phone Care Team Providers Care Store Coordinator Name Role Phone Scott Randle DO Primary Care Provider [phone] Reason for Visit * Episode Based Medications (Routine) - Closed Specialty Diagnoses / Procedures Referred By Contabhishek t Referred To Contact Diagnoses Crohn's disease of ileum with complication (HCC) Procedures [place] INFLIXIMAB NOT BIOSIMIL 10MG Julia Moreno MD [address] [place] [address] Phone: tel: fax: [facility] Infusion Therapy [facility] 5th [place] [address] [place] [address] Phone: tel: fax: Referral ID Status Reason Start Date Expiration Date Visits Re quested Visits Authorized [id number] Closed 08/31/2022 09/01/2023 26 26 Encounter Details Date Type Department Care Team (Late st Contact Info) Description 07/14/2020 1:00 PM CDT Infusion [facility] Infusion Therapy [address] [place] [address] 5th [place] [address] Crohn's disease of ileum with complication (CMS/HCC) (Primary Dx) Social History Tobacco Use Types Packs/Day Years Used Date Smoking Tobacco: Never Sex and Gender Information Value Date Recorded Sex Assigned at Not on file 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 Tylenol and Benadryl given for pre- medication. IV to LAC. Infused per protocol. No S/S of adverse reaction. VSS. Follow up scheduled. Jin Hanks RN documented in this encounter Plan of Treatment Not on file documented as of this encounter Procedures Procedure Name Priority Date/Time Associated Diagnosis Comments CBC WITH AUTO DIFFERENTIAL Routine 07/14/2020 1:05 PM CDT Crohn's disease of ileum with complication (CMS/HCC) HEPATIC FUNCTION PANEL Routine 07/14/2020 1:05 PM CDT Crohn's disease of ileum with complication (CMS/HCC) documented in this encounter Results * Hepatic function panel (07/14/2020 1:05 PM CDT) Direct Bilirubin 0.09 0.00 - 0.30 mg/dL [facility] AST (SGOT) 25 11 - 47 IU/L [facility] ALT (SGPT) 32 6 - 53 IU/L [facility] Alk Phos, Total 54 35 - 129 IU/L [facility] Albumin 4.4 3.5 - 5.2 g/dL [facility] Total Bilirubin 0.37 0.20 - 1.40 mg/dL [facility] Total Protein 6.9 6.1 - 8.4 g/dL [facility] Blood specimen (specimen) 07/14/2020 1:05 PM CDT 07/14/2020 3:15 PM CDT us Julia Moreno MD LAB BLOOD ORDERABLE S Final Result [facility] * (ABNORMAL) CBC with auto differential (07/14/2020 1:05 PM CDT) White Blood Count 5.9 3.6 - 11.2 K/uL [facility] RBC 5.04 4.06 - 5.63 M/uL [facility] Hemoglobin 16.0 13.0 - 17.5 g/dL [facility] Hematocrit 44.8 40.7 - 50.3 % [facility] MCV 88.8 80.0 - 97.6 fL [facility] MCH 31.7 26.7 - 33.7 pg [facility] MCHC 35.6(H) 32.7 - 35.5 g/dL [facility] RBC Dist Width 13.2 12.3 - 17.0 % [facility] Platelet Count 206 140 - 440 K/uL [facility] MPV 8.7 6.8 - 10.4 fL [facility] Neutrophils % 58.4 38.7 - 74.5 % [facility] Lymphocyte % 31.5 20.0 - 54.3 % [facility] Monocytes % 8.5 4.3 - 13.5 % [facility] Eosinophils % 1.2 0.0 - 6.0 % [facility] Basophil % 0.4 0.0 - 3.0 % [facility] Absolute Neutrophil 3.4 1.8 - 6.6 K/uL [facility] Absolute Lymphocyte 1.9 0.8 - 3.3 K/uL [facility] Absolute Monocyte 0.5 0.2 - 1.2 K/uL [facility] Absolute Eosinophil 0.1 0.0 - 0.5 K/uL [facility] Absolute Basophil 0.0 0.0 - 0.2 K/uL [facility] Nucleated RBC % 0.0 0.0 - 0.4 /100 WBC [facility] Blood specimen (specimen) 07/14/2020 1:05 PM CDT 07/14/2020 3:15 PM CDT Julia Moreno MD LAB BLOOD ORDERABLE S Final Result [facility] documented in this encounter Visit Diagnoses Diagnosis Crohn's disease of ileum with complication (HCC)- Primary documented in this encounter Administered Medications Inactive Administered Medications - up to 3 most recent administrations Medication Order MAR Action Action Date Dose Rate Site inFLIXimab (REMICADE) 600 mg in sodium chloride 0.9% 250 mL IVPB 600 mg, intravenous, Administer over 2 Hours, Once, On Tue07/14/20 at 1330, For 1 dose, Infuse with [...] of ileum with complication (HCC) New Bag 07/14/2020 1:10 PM CDT 600 mg documented in this encounter Orders Medications Ordered That Po ht Not Have Been Administered Count Last Ordered Date First Ordered Date inFLIXimab (REMICADE) 600 mg in sodium chloride 0.9% 250 mL IVPB 1 07/14/2020 sodium chloride 0.9% flush 10 mL 1 07/15/19 21 Nursing Count Last Ordered Date First Orde red Date ONCBCN NURSING COMMUNICATION [id number] 1 0 07/14/2020 VITAL SIGNS INTRA-INFUSION 1 07/14/2020 documented in this encounter Care Teams Store Coordinator Relationship Specialty Start Date End Date Scott Randle DO PCP - General Family Medicine 02/06/20 11/13/20 documented as of this encounter
--- OUTSIDE RECORDS SUMMARY | 2024-01-30 08:19 | XMS_ITS | Encounter Summary ---
Author Organization [facility] Address [address] [place] [address] Care Team Providers Care Editor Sound Name Role Phone Scott Randle DO Primary Care Provider [phone] Encounter Details Date Type Department Care Team (Late st Contact Info) Description 11/14/2020 8:52 AM CDT Anesthesia Event [facility] Endoscopy [address] [place] [address] Latrice Webb MD [address] [place] [address] Avtar Long MD [address] [place] [address] Anesthesia Record Procedure Summary Procedure Name Responsible Anesthesiologist Anesthesia Start Time Anesthesia Stop Time ENDO POUCHOSCOPY REMOVAL TISSUE VIA SNARE (Left) Latrice Webb MD 11/14/20 0852 11/14/20 0911 Events Date Time Event Comment 11/14/2020 0751 0841 AN Equip Check 0852 An Start 0852 An Start Data 0852 In Room 0854 Start Supplemental O2 0855 Patient Positioned Laterally 0856 An Induction The patient was reevaluated immediately before moderate or deep sedation use and before anesthesia induction. 0856 Anesthesia Ready 0857 Proc Start 0906 Proc Fin 0907 an stop data 0908 Out of Room 0911 Handoff to RN I completed my handoff [...] the time of handoff: No value filed. 910 An Stop Meds Name Total propofol 220 mg Lidocaine IV 2 % 5 mL sodium chloride 0.9% infusion 400 mL * Agents Name O2 * Blood No blood administrations on file. 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 Gender Identity Not on file Sexual Orientation Straight 04/01/2020 8: 42 PM AMUSEMENT OR RECREATION CARD CHECKER documented as of this encounter OR Notes * Anesthesia Postprocedure Evaluation - Latrice Webb MD - 11/14/2020 9:30 AM CDT Patient: Kris Spence Procedure Summary Date: 11/14/20 Room / Location: [facility] ENDOSCOPY ROOM / [facility] ENDOSCOPY Anesthesia Start: 851 Anesthesia Stop: 910 Procedures: ENDO POUCHOSCOPY REMOVAL TISSUE VIA SNARE (Left ) ENDO ADD ON POUCHOSCOPY BIOPSY (N/A ) Diagnosis: Crohn's disease of ileum with complication (CMS/HCC) (HCC) (Crohn's disease of ileum with complication) Providers: Julia Moreno MD Responsible Provider: Latrice Webb MD Anesthesia Type: general ASA Status: 2 Anesthesia Type: general Last vitals BP 125/75 Pulse 52 Temp 36.1 ??C (97 ??F) (Temporal) Resp 23 SpO2 95% Anesthesia Post Evaluation Patient location during evaluation: PACU Patient participation: complete - patient participated Level of consciousness: fully awake Pain score: 0 Pain management: adequate Airway patency: adequate Evidence of recall: no Cardiovascular status: hemodynamically stable and acceptable Respiratory status: acceptable and room air Hydration status: acceptable Pt is: normothermic Nausea/Vomiting status: none No complications documented. * Anesthesia Preprocedure Evaluation - Avtar Long MD - 11/14/2020 7:51 AM CDT Images from the original note were not included. Anesthesia Evaluation Kris Spence is a 60 y.o. male Procedure(s): POUCHOSCOPY Pre-Op Diagnosis Codes: * Crohn's disease of ileum with complication (CMS/HCC) (HCC) [K50.019] HISTORY Past Medical History Neurological + ICA stenosis Patient Active Problem List Diagnosis ??? Recurrent incisional hernia ??? Crohn's disease of ileum with complication (CMS/HCC) (HCC) Past Medical History: Diagnosis Date ??? GERD [...] Tomatoes and oranges ??? Iron Rash ??? [place] Juice Hives ??? [place] Oil Hives ??? Sulfa (Sulfonamide Antibiotics) Hives and Rash ??? Tomato Hives ??? Sulfur Unknown Cerner Allergy Text Annotation: Sulfur ??? Azathioprine Other (See comments) pancreatitis Taking? Last Dose Start Date End Date Provider acetaminophen-codeine (TYLENOL with CODEINE #3) 300-30 mg per tablet 04/23/11 -- Provider, MD Amie allopurinoL (ZYLOPRIM) 100 mg tablet 11/29/19 -- Amie Odonnell MD chlorthalidone 25 mg tablet 11/20/19 -- Amie Odonnell MD cholecalciferol (Vitamin D3) 2000 unit tablet 03/27/20 -- Julia Moreno MD Take 1 tablet (2,000 Units total) by mouth daily esomeprazole DR (NexIUM) 20 mg capsule 02/05/20 -- Provider, MD Amie Notes: 2x/day fenofibrate nanocrystallized (TRICOR) 48 mg tablet 10/14/20 -- Amie Odonnell MD gabapentin (NEURONTIN) 300 mg capsule 10/23/20 -- Amie Odonnell MD inFLIXimab (REMICADE) 100 mg injection -- -- Amie Odonnell MD iron,carbonyl-vitamin C 65 mg iron- 125 mg tablet,delayed release (DR/EC) -- -- Amie Odonnell MD Klor-Con M20 20 mEq CR tablet 01/12/20 -- Amie Odonnell MD loperamide (IMODIUM) 0.133 mg/mL solution -- -- Amie Odonnell MD metoprolol XL (TOPROL-XL) 50 mg extended release tablet 06/09/15 -- Amie Odonnell MD Notes: 2x/day bxtwjybsmagb-tjsnvafj-zlkgpo tablet -- -- Amie Odonnell MD ondansetron ODT (ZOFRAN-ODT) 4 mg disintegrating tablet 04/05/17 -- Amie Odonnell MD sildenafiL, pulm.hypertension, (REVATIO) 20 mg tablet 07/23/13 -- Amie Odonnell MD testosterone cypionate (DEPO-TESTOTERONE) 200 mg/mL injection 10/07/20 -- Amie Odonnell MD Current Facility-Administered Medications: ??? [MAR Hold] sodium chloride 0.9% flush 0.5-20 mL, 0.5-20 mL, intra-catheter, PRN ??? sodium chloride 0.9% infusion, 30 mL/hr, intravenous, Continuous Social History Tobacco Use Smoking Status Never Smoker Substance and Sexual Activity Alcohol Use Not on file Substance and Sexual Activity Drug Use Not on file Family History Problem Relation Age of Onset ??? Cancer Father ??? Hypertension Father Vitals: 11/14/20 0742 Temp: 36.3 ??C (97.3 ??F) PT: No results found for requested labs within last 720 hours. INR: No results found for requested labs within last 720 hours. APTT: No results found for requested labs within last 720 hours. Hgb A1C: No results found for requested labs within last 720 hours. CBC RBC: 11/07/2020: 5.23 M/cumm RDW: 11/07/2020: 12.1 %; 38.8 fL MCHC: 11/07/2020: 35.9 g/dL (H) MCH: 11/07/2020: 31.5 pg MCV: 11/07/2020: 87.8 fl Hct: 11/07/2020: 45.9 % Hgb: 11/07/2020: 16.5 g/dL WBC: 11/07/2020: 6.30 K/cumm MPV: 11/07/2020: 10.5 fl Platelets: 11/07/2020: 218 K/cumm RDW CV: No results found for requested [...] for requested labs within last 720 hours. DOS Physical Exam Medical history, medications, and allergies reviewed. Attestation: This PAT evaluation Airway Exam: Mallampati: III Cervical ROM: FROM Cardiovascular Exam: Rate: regular Rhythm: regular Pulmonary Exam: LCTA, bilat Anesthesia Plan ASA 2 My patient is approved for the Anesthesia Controlled Medication protocol when under care of a YARD SPECIALIST Planned anesthesia: General Informed Consent: Anesthesia plan [...] %) injection intravenous, As needed, Starting on Tue11/14/20 at 0856, Anesthesia Intra-op, Indications: Administration of Local AnesthesiaIndications:Administratio n of Local Anesthesia Given 11/14/2020 8:56 AM CDT 5 mL propofoL (DIPRIVAN) 10 mg/mL IV intravenous, As needed, Starting on Tue11/14/20 at 0856, Anesthesia Intra-op Given 11/14/2020 9:06 AM CDT 20 mg Given 11/14/2020 9:05 AM CDT 20 mg Given 11/14/2020 9:01 AM CDT 40 mg sodium chloride 0.9% infusion 30 mL/hr, intravenous, Continuous, Starting on Tue11/14/20 at 0815 Restarted 11/14/2020 9:06 AM CDT Rate/Dose Verify 11/14/2020 8:52 AM CDT 30 mL/h r New Bag 11/14/2020 8:12 AM CDT 30 mL/hr 30 mL/hr documented in this encounter Care Teams Editor Sound Relationship Specialty Start Date End Date Scott Randle DO PCP - General 11/14/20 01/15/21 documented as of this encounter
--- OUTSIDE RECORDS SUMMARY | 2024-01-30 08:20 | XMS_ITS | Encounter Summary ---
Author Organization [facility] Address [address] [place] [address] Phone Care Team Providers Care Prosthetic Technician Name Role Phone Scott Randle DO Primary Care Provider [phone] [phone] Reason for Visit * Episode Based Medications (Routine) - Closed Specialty Diagnoses / Procedures Referred By Contabhishek t Referred To Contact Diagnoses Crohn's disease of ileum with complication (HCC) Procedures [place] INFLIXIMAB NOT BIOSIMIL 10MG Julia Moreno MD [address] [place] [address] Phone: tel: fax: [facility] Infusion Therapy [facility] 5th [place] [address] [place] [address] Phone: tel: fax: Referral ID Status Reason Start Date Expiration Date Visits Re quested Visits Authorized [id number] Closed 08/31/2022 09/01/2023 26 26 Encounter Details Date Type Department Care Team (Late st Contact Info) Description 04/08/2020 12:45 PM SVP PROGRAMMATIC TV Infusion [facility] Infusion Therapy [facility] 5th [place] [address] Crohn's disease of ileum with complication (CMS/HCC) (Primary Dx) Social History Tobacco Use Types Packs/Day Years Used Date Smoking Tobacco: Never Sex and Gender Information Value Date Recorded Sex Assigned at Not on file Legal Sex Male 8:42 AM SVP PROGRAMMATIC TV Gender Identity Not on file Sexual Orientation Straight 04/01/2020 8: 42 PM SVP PROGRAMMATIC TV documented as of this encounter Last Filed Vital Signs Vital Sign Reading Time Taken Comments Blood Pressure 133/85 04/08/2020 12:05 PM SVP PROGRAMMATIC TV Pulse 66 04/08/2020 12:05 PM SVP PROGRAMMATIC TV Temperature 36.4 ??C (97.6 ??F) 04/08/2020 12:[address] Respiratory Rate - - Oxygen Saturation - - Inhaled Oxygen Concentration - - Weight - - Height - - Body Mass Index - - documented in this encounter Progress Notes * Lubna Gaspar RN - 04/08/2020 12:45 PM CST Pt to infusion center for REMICADE first dose. VSS. Denies illness. Tolerated infusion without adverse reaction. Follow up scheduled in 2 weeks for second loading dose. Ambulated out of infusion center with SO. PROGRAMMATIC TV documented in this encounter Plan of Treatment Not on file documented as of this encounter Procedures Procedure Name Priority Date/Time Associated Diagnosis Comments CBC WITH AUTO DIFFERENTIAL Routine 04/08/2020 12:05 PM SVP PROGRAMMATIC TV Crohn's disease of ileum with complication (CMS/HCC) HEPATIC FUNCTION PANEL Routine 04/08/2020 12:05 PM SVP PROGRAMMATIC TV Crohn's disease of ileum with complication (CMS/HCC) documented in this encounter Results * Hepatic function panel (04/08/2020 12:05 PM SVP PROGRAMMATIC TV) Direct Bilirubin 0.13 0.00 - 0.30 mg/dL [facility] AST (SGOT) 29 11 - 47 IU/L [facility] ALT (SGPT) 39 6 - 53 IU/L [facility] Alk Phos, Total 72 35 - 129 IU/L [facility] Albumin 4.5 3.5 - 5.2 g/dL [facility] Total Bilirubin 0.36 0.20 - 1.40 mg/dL [facility] Total Protein 7.4 6.1 - 8.4 g/dL [facility] Blood specimen (specimen) 04/08/2020 12:05 PM SVP PROGRAMMATIC TV 04/08/2020 1:02 PM SVP PROGRAMMATIC TV us Julia Moreno MD LAB BLOOD ORDERABLE S Final Result [facility] * (ABNORMAL) CBC with auto differential (04/08/2020 12:05 PM SVP PROGRAMMATIC TV) White Blood Count 7.2 3.6 - 11.2 K/uL [facility] RBC 4.98 4.06 - 5.63 M/uL [facility] Hemoglobin 15.9 13.0 - 17.5 g/dL [facility] Hematocrit 44.6 40.7 - 50.3 % [facility] MCV 89.7 80.0 - 97.6 fL [facility] MCH 31.9 26.7 - 33.7 pg [facility] MCHC 35.6 H(H) 32.7 - 35.5 g/dL [facility] RBC Dist Width 12.8 12.3 - 17.0 % [facility] Platelet Count 217 140 - 440 K/uL [facility] MPV 8.6 6.8 - 10.4 fL [facility] Neutrophils % 68.0 38.7 - 74.5 % [facility] Lymphocyte % 22.5 20.0 - 54.3 % [facility] Monocytes % 7.4 4.3 - 13.5 % [facility] Eosinophils % 1.5 0.0 - 6.0 % [facility] Basophil % 0.6 0.0 - 3.0 % [facility] [...] WBC [facility] Blood specimen (specimen) 04/08/2020 12:05 PM SVP PROGRAMMATIC TV 04/08/2020 1:02 PM SVP PROGRAMMATIC TV us Julia Moreno MD LAB BLOOD ORDERABLE [...] intravenous, Administer over 2 Hours, Once, On Tue04/08/20 at 1230, For 1 dose, Scheduling/ADT, Infuse with filter tubing LOADING DOSE: Administer on weeks 0, 2, and 6. lnititate therapy at 10mI/hour x 15 minutes then Increase to 20ml/hour x 15 minutes then Increase to 40ml/hour x 15 minutes then Increase to 80ml/hour x 15 minutes then Increase to 150ml/hour x 30 minutes then Increase to 250ml/hour x 30 minutes then end therapy. FOR REACTIONS-STOP INFUSION. Use 1.2 micron filter or less, low-sorbing.Indications:Crohn's disease of ileum with complication (HCC) New Bag 04/08/2020 12:07 PM SVP PROGRAMMATIC TV 600 mg documented in this encounter Orders Medications Ordered That Po ht Not Have Been Administered Count Last Ordered Date First Ordered Date inFLIXimab (REMICADE) 600 mg in sodium chloride 0.9% 250 mL IVPB 1 04/08/2020 Nursing Count Last Ordered Date First Orde red Date HEIGHT AND WEIGHT 1 04/08/2020 ONCBCN NURSING COMMUNICATION [id number] 2 0 04/08/2020 VITAL SIGNS INTRA-INFUSION 1 04/08/2020 VITAL SIGNS POST-INFUSION 1 04/08/2020 documented in this encounter Care Teams Prosthetic Technician Relationship Specialty Start Date End Date Scott Randle DO PCP - General Family Medicine 02/06/20 11/13/20 documented as of this encounter
--- OUTSIDE RECORDS SUMMARY | 2024-01-30 08:20 | XMS_ITS | Encounter Summary ---
Author Organization [facility] Address [address] [facility] [address] [place] [address] Phone Care Team Providers Care Flour Broker Name Role Phone Scott Randle DO Primary Care Provider [phone] [phone] Encounter Details Date Type Department Care Team (Late st Contact Info) Description 03/28/2020 Documentation [facility] Gastroenterology [address] [facility] 8th [place] [address] [place] [address] Brenda Stewart Social History Tobacco Use Types Packs/Day Years Used Date Smoking Tobacco: Never Sex and Gender Information Value Date Recorded Sex Assigned at Not on file 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 New start Remicade 5 mg/kg weeks 0,2,6 then every 8 weeks at [facility] 5C Sent to [facility] on 03/27/2020 ?? Brenda make sure patient signs up for Remicade patient assistance ?? [email or web address] NKLING TRUCK DRIVER NKLING TRUCK DRIVER documented in this encounter Plan of Treatment Not on file documented as of this encounter Visit Diagnoses Not on filedocumented in this encounter Care Teams Flour Broker Relationship Specialty Start Date End Date Scott Randle DO PCP - General Family Medicine 02/06/20 11/13/20 documented as of this encounter
--- OUTSIDE RECORDS SUMMARY | 2024-01-30 08:20 | XMS_ITS | Encounter Summary ---
Author Organization [facility] Address [address] [place] [address] Phone Care Team Providers Care Hospital Nurse Name Role Phone Scott Randle DO Primary Care Provider [phone] [phone] Encounter Details Date Type Department Care Team (Late st Contact Info) Description 03/27/2020 Orders Only [facility] Gastroenterology [address] [facility] 8th [place] [address] [place] [address] Millicent Aguilera, HONG Crohn's disease of ileum with complication (CMS/HCC) (Primary Dx) Social History Tobacco Use Types Packs/Day Years Used Date Smoking Tobacco: Never Sex and Gender Information Value Date Recorded Sex Assigned at Not on file 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 inFLIXimab (REMICADE) 100 mg injectionIndicat ions:Crohn's Disease Infuse 120 mL (1,200 mg total) into a venous catheter every 4 (four) weeks Infused at: [facility] Frequency change as of 06/30/21 r/t low IFX drug level from 06/07/21. 01/12/2021 01/13/2023 added in this encounter Care Teams Hospital Nurse Relationship Specialty Start Date End Date Scott Randle DO PCP - General Family Medicine 02/06/20 11/13/20 documented as of this encounter
--- OUTSIDE RECORDS SUMMARY | 2024-01-30 08:20 | XMS_ITS | Encounter Summary ---
Author Organization [facility] Address [address] [place] [address] Phone Care Team Providers Care Ux Designer Name Role Phone Scott Randle DO Primary Care Provider [phone] [phone] Encounter Details Date Type Department Care Team (Late st Contact Info) Description 04/09/2020 Orders Only [facility] Gastroenterology [address] [facility] 8th [place] [address] [place] [address] Millicent Aguilera, HONG Social History Tobacco Use Types Packs/Day Years Used Date Smoking Tobacco: Never Sex and Gender Information Value Date Recorded Sex Assigned at Not on file 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 Gender Identity Not on file Sexual Orientation Straight 04/01/2020 8: 42 PM EPIC TRAINER documented as of this encounter Plan of Treatment Not on file documented as of this encounter Visit Diagnoses Not on filedocumented in this encounter Discontinued Medications Medication Sig Discontinue Reason Start Date End Da te folic acid (FOLVITE) 1 mg tablet TAKE 1 TABLET (1 MG TOTAL) BY MOUTH EVERY DAY 07/23/2017 04/09/2020 metoprolol tartrate (LOPRESSOR) 50 mg immediate release tablet Take 50 mg by mouth 11/28/201904/2020 documented as of this encounter Care Teams Ux Designer Relationship Specialty Start Date End Date Scott Randle DO PCP - General Family Medicine 02/06/20 11/13/20 documented as of this encounter
--- OUTSIDE RECORDS SUMMARY | 2024-01-30 08:20 | XMS_ITS | Encounter Summary ---
Author Organization [facility] Address [address] [place] [address] Phone Care Team Providers Care Physical Therapy Attendant Name Role Phone Scott Randle DO Primary Care Provider [phone] [phone] Encounter Details Date Type Department Care Team (Late st Contact Info) Description 03/27/2020 Orders Only [facility] Gastroenterology [address] [facility] 8th [place] [address] [place] [address] Millicent Aguilera RN Low serum vitamin D (Primary Dx) Social History Tobacco Use Types Packs/Day Years Used Date Smoking Tobacco: Never Sex and Gender Information Value Date Recorded Sex Assigned at Not on file 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 Gender Identity Not on file Sexual Orientation Straight 04/01/2020 8: 42 PM FILAMENT CUTTER documented as of this encounter Ordered Prescriptions Prescription Sig Dispense Quantity Refills Last Filled Start Date End Date cholecalciferol (Vitamin D3) 2000 unit tabletIndications: Low serum vitamin D Take 1 tablet (2,000 Units total) by mouth daily 90 tablet 3 03/27/2020 01/12/2021 documented in this encounter Progress Notes * Millicent Aguilera RN - 03/27/2020 11:58 AM CST via MENT CUTTER documented in this encounter Plan of Treatment Not on file documented as of this encounter Visit Diagnoses Diagnosis Low serum vitamin D- Primary documented in this encounter Discontinued Medications Medication Sig Discontinue Reason Start Date End Da te cholecalciferol (VITAMIN D-3) 50,000 unit capsule Take by mouth 08/17/2016 03/27/2020 documented as of this encounter Care Teams Physical Therapy Attendant Relationship Specialty Start Date End Date Scott Randle DO PCP - General Family Medicine 02/06/20 11/13/20 documented as of this encounter
--- OUTSIDE RECORDS SUMMARY | 2024-01-30 08:20 | XMS_ITS | Encounter Summary ---
Author Organization [facility] Address [address] [place] [address] Phone Care Team Providers Care Sequins Stringer Name Role Phone Scott Randle DO Primary Care Provider [phone] [phone] Encounter Details Date Type Department Care Team (Late st Contact Info) Description 04/08/2020 Orders Only [facility] Gastroenterology [address] [facility] 8th [place] [address] [place] [address] Millicent Aguilera, HONG Social History Tobacco Use Types Packs/Day Years Used Date Smoking Tobacco: Never Sex and Gender Information Value Date Recorded Sex Assigned at Not on file 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
--- OUTSIDE RECORDS SUMMARY | 2024-01-30 08:20 | XMS_ITS | Encounter Summary ---
Author Organization [facility] Address [address] [place] [address] Phone Care Team Providers Care Breaker Mechanic Name Role Phone Scott Randle DO Primary Care Provider [phone] [phone] Reason for Visit * Episode Based Medications (Routine) - Closed Specialty Diagnoses / Procedures Referred By Contabhishek t Referred To Contact Diagnoses Crohn's disease of ileum with complication (HCC) Procedures [place] INFLIXIMAB NOT BIOSIMIL 10MG Julia Moreno MD [address] [place] [address] Phone: tel: fax: [facility] Infusion Therapy [address] [place] [address] 5th [place] [address] [place] [address] Phone: tel: fax: Referral ID Status Reason Start Date Expiration Date Visits Re quested Visits Authorized [id number] Closed 08/31/2022 09/01/2023 26 26 Encounter Details Date Type Department Care Team (Late st Contact Info) Description 04/21/2020 12:45 PM CDT Infusion [facility] Infusion Therapy [address] [place] [address] 5th [place] [address] Crohn's disease of ileum with complication (CMS/HCC) (Primary Dx) Social History Tobacco Use Types Packs/Day Years Used Date Smoking Tobacco: Never Sex and Gender Information Value Date Recorded Sex Assigned at Not on file 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 Tylenol and Benadryl administered for pre-medication. IV to [facility]. Labs drawn. Remicade infused per protocol. No S/S of adverse reaction. VSS. Ambulatory from infusion center. Jin Hanks RN documented in this encounter Plan of Treatment Not on file documented as of this encounter Procedures Procedure Name Priority Date/Time Associated Diagnosis Comments CBC WITH AUTO DIFFERENTIAL Routine 04/21/2020 12:50 PM CDT Crohn's disease of ileum with complication (CMS/HCC) HEPATIC FUNCTION PANEL Routine 04/21/2020 12:50 PM CDT Crohn's disease of ileum with complication (CMS/HCC) documented in this encounter Results * Hepatic function panel (04/21/2020 12:50 PM CDT) Direct Bilirubin 0.14 0.00 - 0.30 mg/dL [facility] AST (SGOT) 25 11 - 47 IU/L [facility] ALT (SGPT) 37 6 - 53 IU/L [facility] Alk Phos, Total 69 35 - 129 IU/L [facility] Albumin 4.8 3.5 - 5.2 g/dL [facility] Total Bilirubin 0.50 0.20 - 1.40 mg/dL [facility] Total Protein 7.4 6.1 - 8.4 g/dL [facility] Blood specimen (specimen) 04/21/2020 12:50 PM CDT 04/21/2020 2:07 PM CDT us Julia Moreno MD LAB BLOOD ORDERABLE S Final Result [facility] * (ABNORMAL) CBC with auto differential (04/21/2020 12:50 PM CDT) White Blood Count 7.3 3.6 - 11.2 K/uL [facility] RBC 5.05 4.06 - 5.63 M/uL [facility] Hemoglobin 16.1 13.0 - 17.5 g/dL [facility] Hematocrit 45.2 40.7 - 50.3 % [facility] MCV 89.4 80.0 - 97.6 fL [facility] MCH 31.9 26.7 - 33.7 pg [facility] MCHC 35.7 H(H) 32.7 - 35.5 g/dL [facility] RBC Dist Width 12.7 12.3 - 17.0 % [facility] Platelet Count 219 140 - 440 K/uL [facility] MPV 8.7 6.8 - 10.4 fL [facility] Neutrophils % 63.7 38.7 - 74.5 % [facility] Lymphocyte % 27.9 20.0 - 54.3 % [facility] Monocytes % 6.2 4.3 - 13.5 % [facility] Eosinophils % 1.6 0.0 - 6.0 % [facility] Basophil % 0.6 0.0 - 3.0 % [facility] Absolute Neutrophil 4.7 1.8 - 6.6 K/uL [facility] Absolute Lymphocyte 2.0 0.8 - 3.3 K/uL [facility] Absolute Monocyte 0.5 0.2 - 1.2 K/uL [facility] Absolute Eosinophil 0.1 0.0 - 0.5 K/uL [facility] Absolute Basophil 0.0 0.0 - 0.2 K/uL [facility] Nucleated RBC % 0.6(H) 0.0 - 0.4 /100 WBC [facility] Blood specimen (specimen) 04/21/2020 12:50 PM CDT 04/21/2020 2:07 PM CDT us Julia Moreno MD LAB [...] 500 mg 500 mg, oral, Once, On Tue04/21/20 at 1345, For 1 dose, Please give 30 minutes prior to infusion for infusion reaction prophylaxis.Indications:Crohn's disease of ileum with complication (HCC) Given 04/21/2020 12:45 PM CDT 500 mg diphenhydrAMINE (BENADRYL) tab/cap 25 mg 25 mg, oral, Once, On Tue04/21/20 at 1345, For 1 dose, Please give 30 minutes prior to infusion for infusion reaction prophylaxis.Indications:Crohn's disease of ileum with complication (HCC) Given 04/21/2020 12:45 PM CDT 25 mg inFLIXimab (REMICADE) 600 mg in sodium chloride 0.9% 250 mL IVPB 600 mg, intravenous, Administer over 2 Hours, Once, On Tue04/21/20 at 1345, For 1 dose, Infuse with [...] of ileum with complication (HCC) New Bag 04/21/2020 12:55 PM CDT 600 mg documented in this encounter Orders Medications Ordered That Po ht Not Have Been Administered Count Last Ordered Date First Ordered Date sodium chloride 0.9% flush 10 mL 1 04/22/19 documented in this encounter Care Teams Breaker Mechanic Relationship Specialty Start Date End Date Scott Randle DO PCP - General Family Medicine 02/06/20 11/13/20 documented as of this encounter
--- OUTSIDE RECORDS SUMMARY | 2024-01-30 08:20 | XMS_ITS | Encounter Summary ---
Author Organization [facility] Address [address] [place] [address] Phone Care Team Providers Care Process Specialist Name Role Phone Scott Randle DO Primary Care Provider [phone] [phone] Encounter Details Date Type Department Care Team (Late st Contact Info) Description 04/08/2020 1:00 PM ELECTRONIC HEAT SEAL OPERATOR Lab [facility] Endocrinology Metabolism and Lipid [address] [facility] 5th [place] [address] [place] [address] Crohn's disease of ileum with complication (CMS/HCC) Social History Tobacco Use Types Packs/Day Years Used Date Smoking Tobacco: Never Sex and Gender Information Value Date Recorded Sex Assigned at Not on file 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
--- OUTSIDE RECORDS SUMMARY | 2024-01-30 08:20 | XMS_ITS | Encounter Summary ---
Author Organization [facility] Address [address] [place] [address] Phone Care Team Providers Care Ply Cutter Name Role Phone Scott Randle DO Primary Care Provider [phone] Encounter Details Date Type Department Care Team (Late st Contact Info) Description 03/20/2020 10:15 AM OPERATIONS MANAGER ASSISTANT Office Visit [facility] Gastroenterology [facility] Medicine 8th [place] [address] [place] [address] Julia Moreno MD [address] [place] [address] Crohn's 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 (CMS/HCC) (Primary Dx); Crohn's disease of ileum with rectal bleeding (CMS/HCC); High risk medications (not anticoagulants) long-term use Social History Tobacco Use Types Packs/Day Years Used Date Smoking Tobacco: Never Sex and Gender Information Value Date Recorded Sex Assigned at Not on file Legal Sex Male 8:42 AM OPERATIONS MANAGER ASSISTANT Gender Identity Not on file Sexual Orientation Straight 04/01/2020 8: 42 PM OPERATIONS MANAGER ASSISTANT documented as of this encounter Last Filed Vital Signs Vital Sign Reading Time Taken Comments Blood Pressure 130/83 03/20/2020 10:18 AM OPERATIONS MANAGER ASSISTANT Pulse 66 03/20/2020 10:18 AM OPERATIONS MANAGER ASSISTANT Temperature 36.1 ??C (97 ??F) 03/20/2020 10:18 AM OPERATIONS MANAGER ASSISTANT Respiratory Rate - - Oxygen Saturation - - Inhaled Oxygen Concentration - - Weight 114.3 kg (252 lb) 03/20/2020 10:18 AM OPERATIONS MANAGER ASSISTANT Height 182.9 cm (6') 03/20/2020 10:18 AM OPERATIONS MANAGER ASSISTANT Body Mass Index 34.18 03/20/2020 10:18 AM OPERATIONS MANAGER ASSISTANT documented in this encounter Patient Instructions * Patient Instructions* Millicent Aguilera RN - 03/20/2020 10:15 AM OPERATIONS MANAGER ASSISTANT Flex sig in office today- Active Crohn's in the afferent limb New patient labs at [facility] to include JCV Antibody blood test If negative JCV or low titer consider Tysabri [facility] [place]( test results take 7-10 days to get back) Cefdinir 1 cap twice daily for 1 week then 1 cap ca follow up in office in 4 months ATIONS MANAGER ASSISTANT ATIONS MANAGER ASSISTANT ATIONS MANAGER ASSISTANT ATIONS MANAGER ASSISTANT ATIONS MANAGER ASSISTANT documented in this encounter Ordered Prescriptions Prescription Sig Dispense Quantity Refills Last Filled Start Date End Date cefdinir (OMNICEF) 300 mg capsuleIndications :Crohn's 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 (CMS/HCC) (HCC) Take 1 capsule (300 mg total) by mouth 2 (two) times a day for 7 days , then take 1 cap daily 35 capsule 1 03/20/2020 1 cefdinir (OMNICEF) 300 mg capsule Take 1 capsule (300 mg total) by mouth 2 (two) times a day , then take 1 cap daily 35 capsule 1 03/20/2020 1 documented in this encounter Progress Notes * Julia Moreno MD - 03/20/2020 10:15 AM CST Flexible Sigmoidoscopy Procedure Note Procedure: Flexible Sigmoidoscopy Pre-operative Diagnosis: 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 Risks of perforation and hemorrhage were discussed. The patient was placed in the left lateral decubitus position, the anal region was examined, a rectal performed, then the 60cm flexible sigmoidoscope was inserted and advanced {without difficulty toa distance of 40 cm. The prep was adequate. The instrument was withdrawnwith with views throughout. Findings: Normal cuff and pouch (no pouch inflammation or ulcers) ; the pouch inlet had heaped cobblelstone ulcerated mucosa that extended at least 20cm in the afferent limb; the afferent limb had deep linear ulcers with friability and cobble stone mucosa; no normal mucosa was seen in the afferent limb Specimens: none Complications: None; patient tolerated the procedure well Condition: stable Impression: Active crohn's disease in the afferent limb Recommendations: Need to switch therapy (per description, no difference from Q8 week dosing pouchoscopy) Julia Moreno MD ATIONS MANAGER ASSISTANT * Ravi Holliday MD - 03/20/2020 10:15 AM CST Reason for visit: Establish care for Crohn's disease Problem List: Patient Active Problem List Diagnosis Date Noted ??? Recurrent incisional hernia 03/07/2020 HPI: Kris Spence is a 60 y.o. male with Crohn's disease of the pouch was referred to establish care. He and his say his GI problems started in February of 1988 when he was hospitalized for bleeding duodenal ulcer. He required 5 units of blood. After that time he developed diarrhea. This continued to get worse until 1991 when it turned bloody and he also had incontinence and abdominal pain. 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 He was treated with steroids, sulfasalazine, and enemas. He did reasonably well for several years until 1996 when he had worsening diarrhea. He sawa different cooker mechanic to performed another colonoscopyand found that his inflammation had progressed to involve his descending colon. He was put on azathioprine but developed pancreatitis. He was tried on some other medications that he cannot recall, although he says he was never put on infliximab. He had another colonoscopy that showed his entire colon was now involved. He had a traumatic experience where he had an episode of incontinence on the way to his son's graduation. At that point in conjunction with his doctors he decided to get his colonremoved. On June 13, 2002 he had a total colectomy with J-pouch construction and a temporary ileostomy. The ileostomy was taken down in September of 2002. He did very well for many years with 5 bowel movements per day. He had several other surgeries related to a ventral hernia. He also had a liver resection for an enlarging hemangioma. There was a concern that it could be malignant, but the pathology apparently showed it was indeed a benign hemangioma. He continues to struggle with 2 large ventral hernias and was referred to Dr. Sheth, who referred him to here. In 2013 he had an increase in his his bowel movement frequency up to 12 per day. They are watery without blood. His surgeon performed a pouchoscopy and found that his afferent limb was inflamed. His cooker mechanic tried him on several medications that did not help. He eventually transferred care to another gastrologist who put him on Humira. He said that this helped a little bit, but his symptoms always recurred before his next dose. He says his levels were checked and were very low. He wasnot on azathioprine with Humira given his history of pancreatitis. At one point he was put on methotrexate but felt horrible on this. It is not clear if it was given at the same time as adalimumab. He was switched to vedolizumab. He only got one dose of this. He did not have any improvement and hiswas extremely low. In 2018 he was put on Stelara every 8 weeks. His bowel movements improved a little bit but a pouchoscopy showed he had continued severe inflammation in his afferent limb in 2019. The dosing interval was increased to every 4 weeks. It does not appear that he has had a pouchoscopy to examine that area since the dose was increased. Currently he is having 8-10 bowel movements per day. He has significant urgency and occasional abdominal pain. He wears pads all the time and has stool when he wakes up in the morning. He is not taking Imodium as frequently as he was in the past because he is now retired. He has pain in his legs and they get cold frequently. He is currently being worked up by a neurologist and was told that he has peripheral neuropathy. He denies eye problems, joint pains or skin problems. Past medical history IBD s/p IPAA now with Crohn's disease of the pouch GERD HTN Peripheral neuropathy, currently being worked up by a neurologist Past surgical history 06/13/2002 Two-stage total abdominal colectomy with J pouch, takedown in 09/2002 emergent repair for strangulated hernia 06/2009 abdominal hernia repair 06/2012 abdominal wall reconstruction 08/2015 liver resection for enlarging hemangioma Family History Problem Relation Age of Onset ??? Cancer Father ??? Hypertension Father Father had laryngeal cancer Mother had irritable bowel syndrome, but he says that she did not have an extensive workup His niece has ulcerative colitis Social history He has never smoked. He has 3 drinks on weekends. His never used illegal drugs. 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 He is and his is here with him. Allergies Allergen Reactions ??? Iron Rash ??? Hickman Juice Hives ??? Hickman Oil Hives ??? Sulfa (Sulfonamide Antibiotics) Hives [...] by mouth daily ??? cholecalciferol (VITAMIN D-3) 50,000 unit capsule Take by mouth ??? esomeprazole DR (NexIUM) 20 mg capsule ??? gabapentin (NEURONTIN) 100 mg capsule Take 100 mg by mouth daily ??? iron,carbonyl-vitamin C 65 mg iron- 125 mg tablet,delayed release (DR/EC) Take by mouth ??? Klor-Con M20 20 mEq CR tablet Take 20 mEq by mouth 3 (three) times a day ??? loperamide (IMODIUM) 0.133 mg/mL solution Take by mouth ??? metoprolol tartrate (LOPRESSOR) 50 mg immediate release tablet Take 50 mg by mouth ??? snqzzkoiwpmv-hgcjycwf-ejzose tablet Take 1 tablet by mouth daily ??? Stelara injection ??? tamsulosin (FLOMAX) 0.4 mg extended release capsule Take by mouth daily ??? acetaminophen-codeine (TYLENOL with CODEINE #3) 300-30 mg per tablet Take 1- 2 tablets by mouth every 4 (four) hours as needed ??? budesonide EC (ENTOCORT EC) 3 mg 24 hr capsule Take by mouth ??? cefdinir (OMNICEF) 300 mg capsule Take 1 capsule (300 mg total) by mouth 2 (two) times a day , then take 1 cap daily 35 capsule 1 ??? citalopram (CeleXA) 20 mg tablet 10 mg ??? folic acid (FOLVITE) 1 mg tablet TAKE 1 TABLET (1 MG TOTAL) BY MOUTH EVERY DAY ??? folic acid-vit B6-vit B12 2.2-25-1 mg tablet ??? HYDROcodone-acetaminophen (NORCO) 5-325 mg per tablet Take 1-2 tablets by mouth every 6 (six) hours as needed ??? methotrexate 2.5 mg tablet TAKE 6 TABLETS (15 MG TOTAL) BY MOUTH EVERY 7 DAYS ??? metoprolol XL (TOPROL-XL) 50 mg extended release tablet Take by mouth ??? omeprazole (PriLOSEC) 20 mg capsule Take 40 mg by mouth daily ??? ondansetron ODT (ZOFRAN-ODT) 4 mg disintegrating tablet Take 4 mg by mouth every 8 (eight) hours as needed ??? phenazopyridine (PYRIDIUM) 200 mg tablet Take 200 mg by mouth 3 (three) times a day ??? predniSONE (DELTASONE) 10 mg tablet TAKE 4 TAB BY MOUTH DAILY X2 DAYS 3 TAB DAILY X 2 DAYS, 2 TAB DAILY X 2 DAY, 1 TAB DAILY X 2 DAYS. ??? sildenafiL, pulm.hypertension, (REVATIO) 20 mg tablet 5 mg ??? testosterone 1.62 % (40.5 mg/2.5 gram) gel in packet None Entered ??? valACYclovir (VALTREX) 1 gram tablet Take 1,000 mg by mouth 3 (three) times a day No current facility-administered medications for this visit. The new patient intake form was reviewed with the patient on 03/20/2020 Review of Systems: On complete review of systems, all other systems are negative. Physical Exam: BP 130/83 Pulse 66 Temp 36.1 ??C (97 ??F) Ht 182.9 cm (6') Wt 114.3 kg (252 lb) BMI 34.18kg/m?? General: Awake, alert, no apparent distress, well nourished HEENT: Normocephalic, atraumatic, anicteric, conjunctiva normal Neck: Supple, no lymphadenopathy, no obvious masses Pulmonary: Clear to auscultation bilaterally Cardiovascular: Regular rhythm and rate, normal S1/S2, no murmurs/rubs/gallops Abdomen: Soft, non-tender, non-distended, normoactive bowel sounds, no palpable masses, no rebound or guarding, multiple large ventral hernias Rectal: mild anal canal stenosis Extremities: Warm and well perfused, no cyanosis, no clubbing, no edema Skin: Warm, dry, no rashes Neuro: No focal deficits Psych: Normal affect and mood Labs: No results found for any previous visit. Imaging Review CTE from 2018 report say inflammation of the distal small bowel to the level of the pouch with obstruction or evidence of a fistula Pouchoscopy 07/2018: The perianal exam findings include anal canal stenosis ? dilated. ? A scattered area of severely inflamed, nodular, ? pseudopolypoid and ulcerated mucosa was found in the ? afferent limb. Pouchoscopy today in clinic He had a healthy-appearing rectal cuff and pouch. The pouch inlet was ulcerated and the entire afferent limb was inflamed with deep ulcerations. Assessment/Plan: 1. Crohn's disease of the pouch He had longstanding ulcerative colitis status post IPAA and now has Crohn's disease of the small bowel. He has failed adalimumab. He developed pancreatitis with azathioprine. He did not tolerate methotrexate. He only received one dose of vedolizumab, so were not prepared to say that this was a treatment failure. Though he says his symptoms have subjectively improved on Stelara, his pouchoscopy shows severe inflammation with deep linear ulcerations in his apparent limb. Based on the description of his last pouchoscopy it appears that this is not improved at all on every 4 week dosing. The pouch itself looks healthy, as does the rectal cuff. We explained to him that there are really 3 treatment options. One would be to start infliximab. We are hesitant to do this since he is already failed an anti TNF. However, infliximab allows us to maximize dosing a little bit better. Another option would be to go back to any degree in therapy. Given he has small-bowel disease we would consider Tysabri. We counseled him on the risk of PML and the need for KATE virus testing. If his rectal cough or the pouch itself was the problem, going back to that Ashley may be reasonable. But since it his hisa fair limb that is the problem we are less hopeful that it will work. Another option would be tofacitinib. However given his age, weight and hypertension we are concerned about the risk of thrombosis. We would like to try other medications before considering this. Though his pouch is not the issue, with think it would be reasonable to try a course of antibiotics, especially since it may take a while to get biologic therapy started. With regards to his hernias, we recommend on holding off on any surgery until we can get his disease under better control. Our concern is that if he fails medicalmanagement or his disease progresses he may end up needing a bowel resection. -Stop Stelara -Start cefdinir BID x 7 days, then daily for one month total -Test for KATE virus -after is KATE virus comes back to we will decide on a treatment course. If his positive he cannot goon Tysabri. Return in about 4 months (around 07/18/2020). Cosigned by Julia Moreno MD at 03/20/2020 2:49 PM OPERATIONS MANAGER ASSISTANT ATIONS MANAGER ASSISTANT ATIONS MANAGER ASSISTANT Associated attestation - Julia Moreno MD - 03/20/2020 2:49 PM OPERATIONS MANAGER ASSISTANT I have seen and examined the patient. I agree with the findings and plan of care as documented in the resident/fellow's note. My total encounter time on 03/20/2020 was 30 minutes which was spent in the activities documented in the note. This includes time spent prior to the visit and after the visitin direct care of the patient. This time does not include time spent in any separately reportable services. documented in this encounter Plan of Treatment Scheduled Orders Name Type Priority Associated Diagnoses Orde r Schedule Hepatic function panel Lab Routine Crohn's disease of ileum with rectal bleeding (CMS/HCC) High risk medications (not anticoagulants) long-term use 4 Occurrences starting 03/20/2020 until 03/20/2021, 1 completed documented as of this encounter Procedures Procedure Name Priority Date/Time Associated Diagnosis Comments COPY(IES) SENT TO: Routine 03/20/2020 2: 36 PM OPERATIONS MANAGER ASSISTANT STRATIFY JCV(TM) AB W/REFLEX Routine 03/20/2020 2:36 PM OPERATIONS MANAGER ASSISTANT Crohn's disease of ileum with rectal bleeding (CMS/HCC) High risk medications (not anticoagulants) long-term use TB TEST, QUANTIFERON GOLD Routine 03/20/2020 2:36 PM OPERATIONS MANAGER ASSISTANT Crohn's disease of ileum with rectal bleeding (CMS/HCC) High risk medications (not anticoagulants) long-term use IRON PROFILE W/ IBC Routine 03/20/2020 2 :36 PM OPERATIONS MANAGER ASSISTANT Crohn's disease of ileum with rectal bleeding (CMS/HCC) High risk medications (not anticoagulants) long-term use CBC WITH AUTO DIFFERENTIAL Routine 03/20/2020 2:36 PM OPERATIONS MANAGER ASSISTANT Crohn's disease of ileum with rectal bleeding (CMS/HCC) High risk medications (not anticoagulants) long-term use HEPATITIS B CORE ANTIBODY, TOTAL Routine 03/20/2020 2:36 PM OPERATIONS MANAGER ASSISTANT Crohn's disease of ileum with rectal bleeding (CMS/HCC) High risk medications (not anticoagulants) long-term use VITAMIN D 25 HYDROXY Routine 03/20/2020 2:36 PM OPERATIONS MANAGER ASSISTANT Crohn's disease of ileum with rectal bleeding (CMS/HCC) High risk medications (not anticoagulants) long-term use HEPATITIS B SURFACE ANTIBODY (IMMUNE STATUS) Routine 03/20/2020 2:36 PM OPERATIONS MANAGER ASSISTANT Crohn's disease of ileum with rectal bleeding (CMS/HCC) High risk medications (not anticoagulants) long-term use HEPATITIS B SURFACE ANTIGEN Routine 03/20/2020 2:36 PM OPERATIONS MANAGER ASSISTANT Crohn's disease of ileum with rectal bleeding (CMS/HCC) High risk medications (not anticoagulants) long-term use ERYTHROCYTE SEDIMENTATION RATE Routine 03/20/2020 2:36 PM OPERATIONS MANAGER ASSISTANT Crohn's disease of ileum with rectal bleeding (CMS/HCC) High risk medications (not anticoagulants) long-term use CRP, HIGH SENSITIVITY Routine 03/20/2020 2:36 PM OPERATIONS MANAGER ASSISTANT Crohn's disease of ileum with rectal bleeding (CMS/HCC) High risk medications (not anticoagulants) long-term use FERRITIN Routine 03/20/2020 2:36 PM OPERATIONS MANAGER ASSISTANT Crohn's disease of ileum with rectal bleeding (CMS/HCC) High risk medications (not anticoagulants) long-term use VITAMIN B12 Routine 03/20/2020 2:36 PM OPERATIONS MANAGER ASSISTANT Crohn's disease of ileum with rectal bleeding (CMS/HCC) High risk medications (not anticoagulants) long-term use HEPATIC FUNCTION PANEL Routine 2:36 PM OPERATIONS MANAGER ASSISTANT Crohn's disease of ileum with rectal bleeding (CMS/HCC) High risk medications (not anticoagulants) long-term use documented in this encounter Results * COPY(IES) SENT TO: (03/20/2020 2:36 PM OPERATIONS MANAGER ASSISTANT) COPY(IES) SENT TO: [facility] Comment: ?[facility] ?COPY TO ACCOUNT ?[id number] [facility] [address] ?[place] [address] 03/20/2020 2:36 PM OPERATIONS MANAGER ASSISTANT 03/20/2020 2:38 PM OPERATIONS MANAGER ASSISTANT us Julia Moreno MD LAB BLOOD ORDERABLE S Final Result [facility] * (ABNORMAL) Stratify JCV(TM) antibody w/ reflex (03/20/2020 2:36 PM OPERATIONS MANAGER ASSISTANT) Pathologist [facility] JCV index 2.81(H) [facility] JCV ab POSITIVE( A) [facility] Comment: Index interpretive criteria: ? <0.20 negative ? 0.20-0.40 indeterminate ? >0.40 positive INTERPRETATION Negative: Antibodies to JCV not detected. Indeterminate: Low level reactivity detected, see ?Inhibition Assay result below for the final ?antibody result. Positive: Antibodies to KATE virus (JCV) detected indicating ?the patient has been exposed to JCV at an ?undetermined time. The STRATIFY JCV Antibody Test is an enzyme-linked immunosorbent assay (JACKY) designed to detect JCV antibodies to help identify individuals who have been exposed to the virus. Samples with low level reactivity in the detection assay are retested in a confirmation (inhibition) assay to confirm ??presence or absence of JCV-specific antibodies. Retrospective analyses of post marketing data from various sources, including observational studies and spontaneous reports obtained worldwide, suggest that the risk of developing PML may be associated with relative levels of serum anti-JCV antibody as measured by anti-JCV antibody index.1 1TYSABRI(natalizumab)US Prescribing Information Blood specimen (specimen) 03/20/2020 2:36 PM OPERATIONS MANAGER ASSISTANT 03/20/2020 2:38 PM OPERATIONS MANAGER ASSISTANT Julia Moreno MD LAB BLOOD ORDERABLE S Final Result [facility] [address] [place] [address] * (ABNORMAL) Vitamin D 25 hydroxy (03/20/2020 2:36 PM OPERATIONS MANAGER ASSISTANT) Pathologist [facility] Vitamin D 25-OH 20(L) 30 - 100 ng/mL [facility] Comment: Vitamin D Status ? 25-OH Vitamin D: Deficiency: ?<20 ng/mL Insufficiency: ? 20 - 29 ng/mL Optimal: ? > or = 30 ng/mL For 25-OH Vitamin D testing on patients on D2-supplementation and patients for whom quantitation of D2 and D3 fractions is required, the Quest[facility]ureD(TM) 25-OH VIT D, (D2,D3), LC/MS/MS is recommended: order code 84439 (patients >2yrs). See Note 1 Note 1 For additional information, please refer to http://education.AdelaVoice/faq/IYG862 (This link is being provided for informational/ educational purposes only.) Blood specimen (specimen) 03/20/2020 2:36 PM OPERATIONS MANAGER ASSISTANT 03/20/2020 2:38 PM OPERATIONS MANAGER ASSISTANT Julia Moreno MD LAB BLOOD ORDERABLE S Final Result Performing Organization Address [facility]/ZIP Co de Phone Number [facility] [address] [place] [address] * Vitamin B12 (03/20/2020 2:36 PM OPERATIONS MANAGER ASSISTANT) Pathologist [facility] Vitamin B12 406 200 - 1,100 pg/mL [facility] Blood specimen (specimen) 03/20/2020 2:36 PM OPERATIONS MANAGER ASSISTANT 03/20/2020 2:38 PM OPERATIONS MANAGER ASSISTANT Julia Moreno MD LAB BLOOD ORDERABLE S Final Result Performing Organization Address [facility]/ZIP Co de Phone Number [facility] [address] [place] [address] * Ferritin (03/20/2020 2:36 PM OPERATIONS MANAGER ASSISTANT) [facility] Ferritin 137 24 - 380 ng/mL [facility] Blood specimen (specimen) 03/20/2020 2:36 PM OPERATIONS MANAGER ASSISTANT 03/20/2020 2:38 PM OPERATIONS MANAGER ASSISTANT Julia Moreno MD LAB BLOOD ORDERABLE S Final Result Performing Organization Address [facility] Co de Phone Number [facility] [address] [place] [address] * Iron profile w/ IBC (03/20/2020 2:36 PM OPERATIONS MANAGER ASSISTANT) [facility] Iron 74 50 - 180 mcg/dL [facility] TIBC 358 250 - 425 mcg/dL (calc) [facility] Iron saturation 21 20 - 48 % (calc) [facility] Blood specimen (specimen) 03/20/2020 2:36 PM OPERATIONS MANAGER ASSISTANT 03/20/2020 2:38 PM OPERATIONS MANAGER ASSISTANT Julia Moreno MD LAB BLOOD ORDERABLE S Final Result Performing Organization Address [facility] de Phone Number [facility] [address] [place] [address] * TB test, quantiferon gold (03/20/2020 2:36 PM OPERATIONS MANAGER ASSISTANT) [facility] QuantiFERON(R)-T B Gold Plus, 1 Tube NEGATIVE NEGATIVE [facility] Comment: Negative test result. M. tuberculosis complex infection unlikely. NIL 0.03 IU/mL [facility] MITOGEN-NIL 8.42 IU/mL [facility] TB1-NIL 0.01 IU/mL [facility] TB2-NIL 0.01 IU/mL [facility] Comment: The Nil tube value reflects the background interferon gamma immune response of the patient's blood sample. This value has been subtracted from the patient's displayed TB and Mitogen results. Lower than expected results with the Mitogen tube prevent false-negative Quantiferon readings by detecting a patient with a potential immune suppressive condition and/or suboptimal pre-analytical specimen handling. The TB1 Antigen tube is coated with the M. tuberculosis-specific antigens designed to elicit responses from TB antigen primed CD4+ helper T-lymphocytes. The TB2 Antigen tube is coated with the M. tuberculosis-specific antigens designed to elicit responses from TB antigen primed CD4+ helper and CD8+ cytotoxic T-lymphocytes. For additional information, please refer to [email or web address].[email or web address]/faq/[email or web address] (This link is being provided for informational/ educational purposes only.) ? Your request to have a duplicate copy faxed has been acknowledged. ?Queued to: ??[id number] Blood specimen (specimen) 03/20/2020 2:36 PM OPERATIONS MANAGER ASSISTANT 03/20/2020 2:38 PM OPERATIONS MANAGER ASSISTANT Julia Moreno MD LAB BLOOD ORDERABLE S Final Result [facility] [address] [place] [address] * (ABNORMAL) CRP (cardiac risk) (03/20/2020 2:36 PM OPERATIONS MANAGER ASSISTANT) [facility] hsCRP 6.2(H) mg/L [facility] Comment: Reference Range Optimal <1.0 Jason MUNGUIA et al. Endocr Pract.2017;23(Suppl 2):1-87. For ages >17 Years: hs-CRP mg/L ??Risk According to AHA/CDC Guidelines <1.0 ? Lower relative cardiovascular risk. 1.0-3.0 ?Average relative cardiovascular risk. 3.1-10.0 ? Higher relative cardiovascular risk. ? Consider retesting in 1 to 2 weeks to ? exclude a benign transient elevation ? in the baseline CRP value secondary ? to infection or inflammation. >10.0 ?Persistent elevation, upon retesting, ? may be associated with infection and ? inflammation. Blood specimen (specimen) 03/20/2020 2:36 PM OPERATIONS MANAGER ASSISTANT 03/20/2020 2:38 PM OPERATIONS MANAGER ASSISTANT Julia Moreno MD LAB BLOOD ORDERABLE S Final Result Performing Organization Address [facility] Co de Phone Number [facility] [address] [place] [address] * Erythrocyte sedimentation rate (03/20/2020 2:36 PM OPERATIONS MANAGER ASSISTANT) Erythrocyte sedimentation rate 14 < OR = 20 mm/h [facility] Blood specimen (specimen) 03/20/2020 2:36 PM OPERATIONS MANAGER ASSISTANT 03/20/2020 2:38 PM OPERATIONS MANAGER ASSISTANT Julia Moreno MD LAB BLOOD ORDERABLE S Final Result Performing Organization Address [facility] de Phone Number [facility] [address] [place] [address] * Hepatitis B surface antibody (immune status) (03/20/2020 2:36 PM OPERATIONS MANAGER ASSISTANT) HBsAb (immune status) NON-REACTI VE NON-REACTI VE [facility] Blood specimen (specimen) 03/20/2020 2:36 PM OPERATIONS MANAGER ASSISTANT 03/20/2020 2:38 PM OPERATIONS MANAGER ASSISTANT Julia Moreno MD LAB MICROBIOLOGY - GENERAL ORDERABLES Final Result Performing Organization Address [facility] de Phone Number [facility] [address] [address] * Hepatitis B Surface Antigen (03/20/2020 2:36 PM OPERATIONS MANAGER ASSISTANT) Pathologist [facility] HepBsAg NON-REACTIV E NON-REACTI VE [facility] Blood specimen (specimen) 03/20/2020 2:36 PM OPERATIONS MANAGER ASSISTANT 03/20/2020 2:38 PM OPERATIONS MANAGER ASSISTANT Julia Moreno MD LAB MICROBIOLOGY - GENERAL ORDERABLES Final Result Performing Organization Address [facility] de Phone Number [facility] [address] [place] [address] * Hepatitis B core antibody, total (03/20/2020 2:36 PM OPERATIONS MANAGER ASSISTANT) Pathologist [facility] Hep B core IgG/IgM NON-REACTI VE NON-REACTI VE [facility] Blood specimen (specimen) 03/20/2020 2:36 PM OPERATIONS MANAGER ASSISTANT 03/20/2020 2:38 PM OPERATIONS MANAGER ASSISTANT Julia Moreno MD LAB MICROBIOLOGY - GENERAL ORDERABLES Final Result Performing Organization Address [facility] de Phone Number [facility] [address] [place] [address] * Hepatic function panel (03/20/2020 2:36 PM OPERATIONS MANAGER ASSISTANT) Pathologist [facility] Protein, Total 7.5 6.4 - 8.4 g/dL [facility] Albumin 4.7 3.6 - 5.1 g/dL [facility] Globulin 2.8 2.2 - 4.0 g/dL (calc) [facility] Alb/glob ratio 1.7 0.9 - 2.3 (calc) [facility] Bilirubin, total 0.5 0.2 - 1.2 mg/dL [facility] Bilirubin, direct 0.1 < OR = 0.2 mg/dL [facility] Bilirubin, indirect 0.4 0.2 - 1.2 mg/dL (calc) [facility] Alk phos 67 35 - 144 U/L [facility] AST 21 10 - 35 U/L [facility] ALT (SGPT) 27 9 - 46 U/L [facility] Blood specimen (specimen) 03/20/2020 2:36 PM OPERATIONS MANAGER ASSISTANT 03/20/2020 2:38 PM OPERATIONS MANAGER ASSISTANT us Julia Moreno MD LAB BLOOD ORDERABLE S Final Result [facility] [address], [place] [address] * (ABNORMAL) CBC with auto differential (03/20/2020 2:36 PM OPERATIONS MANAGER ASSISTANT) WBC 6.9 3.8 - 10.8 Thousand/u L [facility] RBC, POC 5.15 4.20 - 5.80 Million/uL [facility] Hgb 16.1 13.2 - 17.1 g/dL [facility] Hct 44.3 38.5 - 50.0 % [facility] MCV 86.0 80.0 - 100.0 fL [facility] MCH 31.3 27.0 - 33.0 pg [facility] MCHC 36.3(H) 32.0 - 36.0 g/dL [facility] Rdw 12.4 11.0 - 15.0 % [facility] Platelets 230 140 - 400 Thousand/u L [facility] MPV 10.3 7.5 - 12.5 fL [facility] Neutrophils, abs 4,409 1,500 - 7,800 cells/uL [facility] Lymphocytes, abs 1,718 850 - 3,900 cells/uL [facility] Monocyte abs 552 200 - 950 cells/uL [facility] Eosinophils, abs 173 15 - 500 cells/uL [facility] Basophils, abs 48 0 - 200 cells/uL [facility] Neutrophils 63.9 % [facility] Lymphocyte pct 24.9 % [facility] Monocytes 8.0 % [facility] Eosinophils 2.5 % [facility] Basophils 0.7 % [facility] Blood specimen (specimen) 03/20/2020 2:36 PM OPERATIONS MANAGER ASSISTANT 03/20/2020 2:38 PM OPERATIONS MANAGER ASSISTANT us Julia Moreno MD LAB BLOOD ORDERABLE S Final Result [facility] [address] [place] [address] documented in this encounter Visit Diagnoses Diagnosis Crohn's 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 (CMS/HCC) (HCC)- Primary Crohn's disease of ileum with rectal bleeding (CMS/HCC) (HCC) High risk medications (not anticoagulants) long-term use Encounter for long-term (current) use of other medications documented in this encounter Discontinued Medications Medication Sig Discontinue Reason Start Date End Da te cefdinir (OMNICEF) 300 mg capsule Take 1 capsule (300 mg total) by mouth 2 (two) times a day , then take 1 cap daily Reorder 03/20/2020 03/20/2020 documented as of this encounter Historical Medications * This list may reflect changes made after this encounter. gabapentin (NEURONTIN) 100 mg capsule Take 100 mg by mouth daily 11/13/2020 added in this encounter Care Teams Ply Cutter Relationship Specialty Start Date End Date Scott Randle DO PCP - General Family Medicine 02/06/20 11/13/20 documented as of this encounter
--- OUTSIDE RECORDS SUMMARY | 2024-01-30 08:21 | XMS_ITS | Encounter Summary ---
Author Organization [facility] Address [address] [place] [address] Phone Care Team Providers Care International Logistics Analyst Name Role Phone Scott Randle DO Primary Care Provider [phone] Reason for Visit * Consultation (Routine) - Closed Specialty Diagnoses / Procedures Referred By Contac t Referred To Contact Minimally Invasive Surgery Diagnoses Ventral hernia without obstruction or gangrene Morris Fabian MD [address] [facility] [address] [address] Phone: tel: fax: Ky Sheth MD [address] [place] [address] Phone: tel: fax: Referral ID Status Reason Start Date Expiration Date V isits Requested Visits Authorized [id number] Closed Specialty Services Required 02/06/2020 03/07/2021 1 1 Encounter Details Date Type Department Care Team (Late st Contact Info) Description 03/07/2020 10:30 AM PERSONALIZED LIVING MANAGER NURSE Office Visit [facility] Surgery [address] [facility] 8th [place] [address] [place] [id number] Ky Sheth MD [address] [place], [place] [id number] Recurrent incisional hernia (Primary Dx); Ventral hernia without obstruction or gangrene Social History Tobacco Use Types Packs/Day Years Used Date Smoking Tobacco: Never Sex and Gender Information Value Date Recorded Sex Assigned at Not on file Legal Sex Male 8:42 AM PERSONALIZED LIVING MANAGER NURSE Gender Identity Not on file Sexual Orientation Straight 04/01/2020 8: 42 PM PERSONALIZED LIVING MANAGER NURSE documented as of this encounter Last Filed Vital Signs Vital Sign Reading Time Taken Comments Blood Pressure 131/89 03/07/2020 10:14 AM PERSONALIZED LIVING MANAGER NURSE Pulse 65 03/07/2020 10:14 AM PERSONALIZED LIVING MANAGER NURSE Temperature 37.1 ??C (98.8 ??F) 03/07/2020 1 0:14 AM PERSONALIZED LIVING MANAGER NURSE Respiratory Rate - - Oxygen Saturation - - Inhaled Oxygen Concentration - - Weight 114.7 kg (252 lb 12.8 oz) 2020 10:14 AM PERSONALIZED LIVING MANAGER NURSE Height 182.9 cm (6') 03/07/2020 10:14 AM PERSONALIZED LIVING MANAGER NURSE Body Mass Index 34.29 03/07/2020 10:14 AM PERSONALIZED LIVING MANAGER NURSE documented in this encounter Patient Instructions * Patient Instructions* Ky Sheth MD - 03/07/2020 10:30 AM PERSONALIZED LIVING MANAGER NURSE Images from the original note were not included. Scheduling surgery: You should expect a call from our office in the next 5-7 business days to schedule your operation. If you do not hear from us in that time please call us at [phone]. If your case is to be performed [...] We have implemented a new online interactive [id number] guide to help you through your surgery and recovery called PaulinaMD. This can be accessed from a smartphone, tablet and or computer. Our patients have found it incredibly helpful, and a great resource. You should be getting an email with instructions on how to sign up. We are encouraging all patients to sign up and give it a try. Please let us know if you have any questions. ONALIZED LIVING MANAGER NURSE documented in this encounter Progress Notes * Ky Sheth MD - 03/07/2020 10:30 AM CST Images from the original note were not included. [facility] Minimally Invasive Surgery New Patient Evaluation Kris Spence : 1960 REFERRING PHYSICIAN - Morris Fabian MD PCP - Scott Randle DO Reason for Visit: Consult requested by Morris Fabian MD for evaluation of recurrent ventral hernia HPI: Kris Spence is a 59 y.o. male with a complaint of multiply recurrent ventral hernia. The current hernia has been around for 6 months. It has been enlarging. He reports having moderate discomfort that has been getting worse. He has had this repaired in the past. He reports occasional episodes of severe abdominal pain with a bulge which improves with reducing the hernia. He denies any episodes of obstruction, strangulation or incarceration. He has history of Crohn's disease and for and has failed multiple 1st line biologic agents. He is currently on Stelara and is trying to transfer hiscare to be [facility] Gastroenterology group. Patient Factors: Smoking: He reports that he has never smoked. He does not have any smokeless tobacco history on file. BMI: Body mass index is 34.29 kg/m??. Past Surgical History: Colon resection, temporary colostomy, interval J-pouch construction 2002, strangulated hernia repair in 2009, incisional hernia repair with mesh in 2009, abdominal wall reconstruction in 2011, liver resection for hemangioma 2015. Previous Transplant: No Previous Cancer: No Obstructions: No. Previous SSI: No Diabetes: No History of MRSA: No Hernia Factors: Recurrent hernia: Yes Number of previous repairs: 3 Previous mesh: Yes, describe: Strattice. Previous mesh removed: No Review of Symptoms: A comprehensive review of systems was completed by the patient and reviewed, signed and dated in [facility]. Past medical history, social history and family history were reviewed in the patients Core Review Physical Exam: Blood pressure 131/89, pulse 65, temperature 37.1 ??C (98.8 ??F), height 182.9 cm (6'), weight 114.7 kg (252 lb 12.8 oz). Body mass index is 34.29 kg/m??. GENERAL: No acute distress. NEURO: Alert and oriented x3, mood and affect appropriate. HEENT: Pupils equal. EOMs grossly normal. PULMONARY: Breathing comfortably on room air. CARDIO: Regular rate and rhythm. SKIN: Smooth and dry, no rash GI: Large reducible hernia, multiple fascial defects on the right side. MUSCULOSKELETAL: Grossly normal range of motion. EXTREMITIES: Warm, well perfused. Diagnostic studies reviewed include: I personally reviewed his most recent CT scan which shows weakness in the left upper abdomen and multiple fascial defects in the right lower abdomen. Assessment/Plan: 59 y.o. male presenting for evaluation of a symptomatic multiply recurrent ventral hernia. Given the previous surgical repairs and the nature of his abdominal wall defects he would be best served with open ventral hernia repair. We discussed the risks, benefits, alternatives to surgery in length with the patient and his . We also discussed the expected recovery and planned use of mesh. He would like to proceed with repair. However he is in the midst of transferring his care to be [facility] Gastroenterology. We will schedule follow-up appointment in clinic after he has been seen by Gastroenterology to discuss surgery and to coordinate dosing for Stelara. TEACHING ATTESTATION I have seen and examined the patient along with the resident and agree with their note and plan as documented above. Briefly, patient is a 59 y.o. male with a complex past surgical history including multiple previousabdominal operations he with colectomy and J-pouch. He has had several hernia repairs most recentlyin 2012 with what sounds like an external oblique release and biologic mesh placement. He is now left with a recurrent midline hernia and ongoing discomfort. I do think given his complex surgical history multiple previous failed repairs he be best served by an open incisional hernia repair with abdominal wall reconstruction. He would also benefit from reestablishment of GI care which I will reachout to our team here to help coordinate. Risks/benefits/alternatives to surgery were discussed with the patient and their family. The risks of the surgery discussed in detail with the patient include, but are not limited to, bleeding, infection, enterotomy, unplanned bowel resection, intraabdominalsepsis, wound sepsis, planned use of mesh, mesh infection, enterocutaneous fistula, chronic abdominal pain, recurrent hernia, deep venous thrombosis, pulmonary embolism, myocardial infarction, stroke, renal failure, and pneumonia. He was given the opportunity to ask any questions, and they were allanswered. He is in agreement with the plan. Ky Sheth MD Minimally Invasive GI Surgery & Abdominal Wall Reconstruction site inspector [facility] [employer] [facility] [phone] ONALIZED LIVING MANAGER NURSE documented in this encounter Plan of Treatment Not on file documented as of this encounter Visit Diagnoses Diagnosis Recurrent incisional hernia- Primary Ventral hernia without obstruction or gangrene Unspecified ventral hernia without mention of obstruction or gangrene documented in this encounter Historical Medications * This list may reflect changes made after this encounter. Klor-Con M20 20 mEq CR tabletIndications:cage pplement Take 1 tablet (20 mEq total) by mouth 3 (three) times a day 01/12/2020 multivitamin-mineral s-lutein tabletIndications:cage pplement Take 1 tablet by mouth every morning esomeprazole DR (NexIUM) 20 mg capsuleIndications:T reatment of Non-Bleeding Gastric Disorder Take 2 capsules (40 mg total) by mouth every morning bid 02/05/2020 chlorthalidone 25 mg tabletIndications:hy pertension Take 1 tablet (25 mg total) by mouth every morning 11/20/2019 allopurinoL (ZYLOPRIM) 100 mg tabletIndications:pr evention of acute gout attack Take 1 tablet (100 mg total) by mouth 2 (two) times a day 11/29/2019 testosterone 1.62 % (40.5 mg/2.5 gram) gel in packet None Entered 06/09/2015 1 metoprolol XL (TOPROL-XL) 50 mg extended release tablet Take by mouth 06/09/2015 1 budesonide EC (ENTOCORT EC) 3 mg 24 hr capsule Take by mouth 06/09/2015 11/14/19 2 1 valACYclovir (VALTREX) 1 gram tablet Take 1,000 mg by mouth 3 (three) times a day 12/19/2019 1 Stelara injection 01/29/2020 02 1 tamsulosin (FLOMAX) 0.4 mg extended release capsule Take by mouth daily 11/26/2019 1 sildenafiL, pulm.hypertension, (REVATIO) 20 mg tablet Take 5 mg by mouth as needed 07/23/2013 2 predniSONE (DELTASONE) 10 mg tablet TAKE 4 TAB BY MOUTH DAILY X2 DAYS 3 TAB DAILY X 2 DAYS, 2 TAB DAILY X 2 DAY, 1 TAB DAILY X 2 DAYS. 12/19/2019 1 phenazopyridine (PYRIDIUM) 200 mg tablet Take 200 mg by mouth 3 (three) times a day 08/31/2013 1 ondansetron ODT (ZOFRAN-ODT) 4 mg disintegrating tablet Take 4 mg by mouth every 8 (eight) hours as needed 04/05/2017 1 omeprazole (PriLOSEC) 20 mg capsule Take 40 mg by mouth daily 11/26/2019 1 metoprolol tartrate (LOPRESSOR) 50 mg immediate release tablet Take 50 mg by mouth 11/28/2019 1 methotrexate 2.5 mg tablet TAKE 6 TABLETS (15 MG TOTAL) BY MOUTH EVERY 7 DAYS 07/21/2017 1 loperamide (IMODIUM) 0.133 mg/mL solution Take by mouth 0 2 iron,carbonyl-vitami n C 65 mg iron- 125 mg tablet,delayed release (DR/EC) Take by mouth 1 HYDROcodone-acetamin ophen (NORCO) 5-325 mg per tablet Take 1-2 tablets by mouth every 6 (six) hours as needed 08/12/2017 1 folic acid (FOLVITE) 1 mg tablet TAKE 1 TABLET (1 MG TOTAL) BY MOUTH EVERY DAY 07/23/2017 1 folic acid-vit B6-vit B12 2.2-25-1 mg tablet 03/03/2017 1 citalopram (CeleXA) 20 mg tablet 10 mg 08/03/2013 1 cholecalciferol (VITAMIN D-3) 50,000 unit capsule Take by mouth 08/17/2016 1 acetaminophen-codein e (TYLENOL with CODEINE #3) 300-30 mg per tablet Take 1-2 tablets by mouth every 4 (four) hours as needed 04/23/2011 1 added in this encounter Orders Outpatient Referral Count Last Ordered Date Fir st Ordered Date AMB REFERRAL TO MINIMALLY INVASIVE SURGERY 1 03/07/2020 documented in this encounter Care Teams International Logistics Analyst Relationship Specialty Start Date End Date Scott Randle DO PCP - General Family Medicine 02/06/20 11/13/20 documented as of this encounter
--- OUTSIDE RECORDS SUMMARY | 2024-01-30 08:21 | XMS_ITS | Encounter Summary ---
Author Organization [facility] Healthcare Address [address] [place] [address] Care Team Providers Care Computer Equipment Installer Name Role Phone Scott Randle DO Primary Care Provider [phone] Encounter Details Date Type Department Care Team (Latest Contact Info) Description 02/12/2020 3:52 PM LOCAL FLATBED DRIVER - 02/12/2020 11:59 PM LOCAL FLATBED DRIVER Hospital Encounter [facility] [address] [place] [address] Discharge Disposition: Discharge to home or self care Social History Tobacco Use Types Packs/Day Years Used Date Smoking Tobacco: Never Assessed Sex and Gender Information Value Date Recorded Sex Assigned at Not on file Legal Sex Male 8:42 AM LOCAL FLATBED DRIVER Gender Identity Not on file Sexual Orientation Straight 04/01/2020 8: 42 PM LOCAL FLATBED DRIVER documented as of this encounter Medications at Time of Discharge allopurinoL (ZYLOPRIM) 100 mg tabletIndications:pr evention of acute gout attack Take 1 tablet (100 mg total) by mouth 2 (two) times a day 11/29/2019 chlorthalidone 25 mg tabletIndications:hy pertension Take 1 tablet (25 mg total) by mouth every morning 11/20/[address] (NexIUM) 20 mg capsuleIndications:T reatment of Non-Bleeding Gastric Disorder Take 2 capsules (40 mg total) by mouth every morning bid 02/05/2020 Klor-Con M20 20 mEq CR tabletIndications:cage pplement Take 1 tablet (20 mEq total) by mouth 3 (three) times a day 01/12/2020 acetaminophen-codein e (TYLENOL with CODEINE #3) 300-30 mg per tablet Take 1-2 tablets by mouth every 4 (four) hours as needed 04/23/2011 1 budesonide EC (ENTOCORT EC) 3 mg 24 hr capsule Take by mouth 06/09/2015 11/14/19 2 1 cholecalciferol (VITAMIN D-3) 50,000 unit capsule Take by mouth 08/17/2016 1 citalopram (CeleXA) 20 mg tablet 10 mg 08/03/2013 1 folic acid (FOLVITE) 1 mg tablet TAKE 1 TABLET (1 MG TOTAL) BY MOUTH EVERY DAY 07/23/2017 1 folic acid-vit B6-vit B12 2.2-25-1 mg tablet 03/03/2017 1 HYDROcodone-acetamin ophen (NORCO) 5-325 mg per tablet Take 1-2 tablets by mouth every 6 (six) hours as needed 08/12/2017 1 methotrexate 2.5 mg tablet TAKE 6 TABLETS (15 MG TOTAL) BY MOUTH EVERY 7 DAYS 07/21/2017 1 metoprolol tartrate (LOPRESSOR) 50 mg immediate release tablet Take 50 mg by mouth 11/28/2019 1 metoprolol XL (TOPROL-XL) 50 mg extended release tablet Take by mouth 06/09/2015 1 omeprazole (PriLOSEC) 20 mg capsule Take 40 mg by mouth daily 11/26/2019 1 ondansetron ODT (ZOFRAN-ODT) 4 mg disintegrating tablet Take 4 mg by mouth every 8 (eight) hours as needed 04/05/2017 1 phenazopyridine (PYRIDIUM) 200 mg tablet Take 200 mg by mouth 3 (three) times a day 08/31/2013 1 predniSONE (DELTASONE) 10 mg tablet TAKE 4 TAB BY MOUTH DAILY X2 DAYS 3 TAB DAILY X 2 DAYS, 2 TAB DAILY X 2 DAY, 1 TAB DAILY X 2 DAYS. 12/19/2019 1 sildenafiL, pulm.hypertension, (REVATIO) 20 mg tablet Take 5 mg by mouth as needed 07/23/2013 2 Stelara injection 01/29/2020 02 1 tamsulosin (FLOMAX) 0.4 mg extended release capsule Take by mouth daily 11/26/2019 1 testosterone 1.62 % (40.5 mg/2.5 gram) gel in packet None Entered 06/09/2015 1 valACYclovir (VALTREX) 1 gram tablet Take 1,000 mg by mouth 3 (three) times a day 12/19/2019 1 documented as of this encounter Discharge Disposition Disposition Code Departure Means Destination Discharge to home or self care documented in this encounter Plan of Treatment Not on file documented as of this encounter Procedures Procedure Name Priority Date/Time Associated Diagnosis Comments CT BODY OUTSIDE REFERENCE Routine 02/12/2020 3:52 PM LOCAL FLATBED DRIVER Diagnosis unknown documented in this encounter Results * CT Body Outside Reference (02/12/2020 3:52 PM LOCAL FLATBED DRIVER) Impressions [facility] - 02/12/2020 3:52 PM LOCAL FLATBED DRIVER These images are for Reference purposes only and have not been reviewed by [facility] Radiology. ??There will be no report generated by a [facility] Radiologist. Narrative [facility] - 02/12/2020 3:52 PM LOCAL FLATBED DRIVER EXAMINATION: ??Images For Reference Purposes Only us Ky Sheth MD IMG CT PROCEDURES Final Result [facility] documented in this encounter Visit Diagnoses Not on filedocumented in this encounter Care Teams Computer Equipment Installer Relationship Specialty Start Date End Date Scott Randle DO PCP - General Family Medicine 02/06/20 11/13/20 documented as of this encounter
--- OUTSIDE RECORDS SUMMARY | 2024-01-30 08:29 | XMS_ITS | Encounter Summary ---
Author Organization [facility] Address [address] [place] [address] Care Team Providers Care Data Architect Name Role Phone Mike Mitchell MD Primary Care Provider [phone] [phone] Reason for Visit * Outpatient Services (Routine) - Authorized Specialty Diagnoses / Procedures Referred By Contact Referred To Contact Hematology and Oncology Diagnoses Crohn's disease of colon with other complication Procedures INFUSION THERAPY DE INJECTION, INFLECTRA DE METHYLPREDNISOLONE INJECTION DE DIPHENHYDRAMINE HCL INJECTIO Inflectra, SoluMedrol, Benadryl Prabhjot Ryder MD [address] [place] [address] [facility] [address] [facility] [address] [place] [address] Referral ID Status Reason Start Date Expiration Date V isits Requested Visits Authorized [id number] Authorized 04/12/2023 05/03/2024 12 12 Encounter Details Date Type Department Care Team (Latest Contact Info) Description 01/12/2024 10:39 AM NEW PRODUCT TRAINER - 01/12/2024 11:59 PM [facility] Hospital Encounter [facility] [address] [facility] [address] [place] [address] Prabhjot Ryder MD [address] [place] [address] Infusion 5, Steele Discharge Disposition: Home or Self Care Social History Tobacco Use Types Packs/Day Years Used Date Smoking Tobacco: Never Alcohol Use Standard Drinks/Week Comments Yes 0 (1 standard drink = 0.6 oz pur e alcohol) socially Feeling Safe Answer Date Recorded Are you in a relationship wi th someone who hurts you emotionally and/or physically? No 01/02/2024 Sex and Gender Information Value Date Recorded Sex Assigned at Not on file Gender Identity Not on file Sexual Orientation Not on file documented as of this encounter Last Filed Vital Signs Vital Sign Reading Time Taken Comments Blood Pressure 152/83 01/12/2024 10:45 AM NEW PRODUCT TRAINER Pulse 75 01/12/2024 10:45 AM NEW PRODUCT TRAINER Temperature 37.1 ??C (98.8 ??F) 01/12/2024 10:[address] Respiratory Rate 16 01/12/2024 10:45 AM NEW PRODUCT TRAINER Oxygen Saturation - - Inhaled Oxygen Concentration - - Weight 115.7 kg (255 lb) 01/12/2024 10:00 AM NEW PRODUCT TRAINER Height - - Body Mass Index 34.58 12/12/2023 1:33 PM NEW PRODUCT TRAINER documented in this encounter Medications at Time of Discharge Medication Sig Dispensed Refills Start Date End Date mesalamine (CANASA) 1,000 mg SuppositoryIndications :Proctitis INSERT 1 SUPPOSITORY (1,000 MG) BY RECTUM DAILY AT BEDTIME. 90 Suppository 1 11/07/2023 amlodipine besylate (AMLODIPINE ORAL) Take by mouth. esomeprazole (NexIUM) 20 mg Capsule, Delayed Release(E.C.) Take 20 mg by mouth 2 times daily. potassium chloride (KLOR-CON) 20 mEq Extended Release tablet Take 20 mEq by mouth daily. fenofibrate nanocrystallized (TRICOR) 48 mg tablet Take 48 mg by mouth daily. chlorthalidone (HYGROTON) 25 mg tablet Take 25 mg by mouth daily. allopurinoL (ZYLOPRIM) 100 mg tablet Take 100 mg by mouth 2 times daily. loperamide (IMODIUM) 2 mg capsule Take 2 mg by mouth every 3 hours as needed for Diarrhea/Loose Stools. Up to 6 per day testosterone cypionate (DEPO-TESTOSTERONE) 200 mg/mL Oil Inject 200 mg by intramuscular injection every 2 weeks. CALCIUM CARBONATE-VITAMIN D3 ORAL Take by mouth. pregabalin (LYRICA) 50 mg Capsule Take 50 mg by mouth. traZODone (DESYREL) 50 mg tablet Take 50 mg by mouth daily at bedtime. tadalafiL (CIALIS) 20 mg tablet Take 20 mg by mouth 1 time daily as needed for Erectile Dysfunction. multivitamin (DAILY-SCARLETT) tablet Take 1 Tablet by mouth daily. iron,carbonyl/ascorbic acid (VITRON-C ORAL) Take by mouth. MAGNESIUM OXIDE ORAL Take by mouth. cyanocobalamin (VITAMIN B-12) 100 mcg tablet Take 100 mcg by mouth daily. sodium chloride 0.9% Parenteral Solution 250 mL with inFLIXimab 100 mg Recon Soln 10 mg Inject 10 mg by intravenous injection one time only. Every 6 wks documented as of this encounter Progress Notes * Charity Downs RN - 01/12/2024 11:00 AM CST Kris Spence admitted to [facility] for infusion. Denies questions about medication/side effects as well as active infection. TB test negative within the last 12 months. Inflectra titrated per protocol and pt tolerated without difficulty/reaction. Pt instructed to notify physician orgo to ED if there are any changes in their condition. Verbalized understanding. Discharged home. PRODUCT TRAINER documented in this encounter Miscellaneous Notes * Treatment Plan - Charity Downs RN - 01/12/2024 11:00 AM CST ST[facility] INFCTR IV Flush Protocol [facility] Approved by: [facility] - Medical Executive Committee Approval Date: 04/28/2023 ORDERS ARE ENTERED ???PER PROTOCOL?? Enter the protocol in the patient's electronic health record using [employer] .flushprotocolinfusioncenteradult Central Venous Catheter occlusion therapy Alteplase (CATHFLO) Instill 2 mg to affected lumen(s) to dwell in occluded lumen one time if neededfor occlusion. May instill a second dose after 120 minutes if catheter remains occluded. Flush orders: Enter orders BELOW ???per protocol?? using the Outpatient Infusion Flush Panel Adult Line care and maintenance Assess VAD function using a 10 mL syringe, or a syringe specifically designed to generate lower injection pressure (eg, 10 mL diameter syringe barrel) Sodium chloride 0.9% (normal saline) flush 10 mL per lumen AND Heparin 10 units/mL 5 mL per lumen to lock line post procedure Sodium chloride 0.9% (normal saline) flush 10 mL per lumen PRN for line care or to complete medication administration Central Venous Line - Heparin 10 units/mL 5mL per lumen to dwell PRN to heparin lock lumen post medication administration PICCs (non-valved, open tip) -Sodium chloride 0.9% (normal saline) flush 10 mL per lumen AND heparin 10 units/mL 5mL per lumen to lock line per day QOD; or three times weekly; per lumen. PICCs (valved, closed tip) - Sodium chloride 0.9% (normal saline) flush 10 mL per lumen daily, QOD,or three times weekly per lumen Flush Bag (select most appropriate fluid for compatibility with medications) Sodium chloride 0.9% (normal saline) 250 mL flush bag. Infuse at a rate of administration flush as needed to complete the IVPB and/or may keep rate at KVO(30 mL/hr) to minimize frequent line interruption. Dextrose 5% (D5W) 250 mL flush bag Infuse at a rate of administration flush as needed to complete the IVPB and/or may keep rate at KVO(30 mL/hr) to minimize frequent line interruption PRODUCT TRAINER documented in this encounter Plan of Treatment Upcoming Encounters Date Type Department Care Team (Late st Contact Info) Description 02/09/2024 11:00 AM NEW PRODUCT TRAINER Appointment [address] [place] [address] Prabhjot Ryder MD [address] [place] [address] [address] [place] [address] Infusion 7 [place] 03/27/2024 10:20 AM NEW PRODUCT TRAINER Office Visit [facility] Gastroenterology [place] [address] [facility] [address] [place] [address] Prabhjot Ryder MD [address] [place] [address] [address] [place] [address] documented as of this encounter Procedures Procedure Name Priority Date/Time Associated Diagnosis Comments CBC WITH DIFFERENTIAL Routine 01/12/2024 10:44 AM NEW PRODUCT TRAINER Crohn's disease of large intestine with other complication C-REACTIVE PROTEIN Routine 01/12/2024 10 :44 AM NEW PRODUCT TRAINER Crohn's disease of large intestine with other complication COMPREHENSIVE METABOLIC PANEL Routine 01/12/2024 10:44 AM NEW PRODUCT TRAINER Crohn's disease of large intestine with other complication documented in this encounter Results * (ABNORMAL) CBC WITH DIFFERENTIAL (01/12/2024 10:44 AM NEW PRODUCT TRAINER) WBC 7.3 3.8 - 10.8 Thousand/ uL [facility] RBC 5.73 4.20 - 5.80 Million/u L [facility] HEMOGLOBIN 18.4(H) 13.2 - 17.1 g/dL [facility] HEMATOCRIT 53.3(H) 38.5 - 50.0 % [facility] MCV 93.0 80.0 - 100.0 fL [facility] MCH 32.1 27.0 - 33.0 pg [facility] MCHC 34.5 32.0 - 36.0 g/dL [facility] Comment: For adults, a slight decrease in the calculated MCHC value (in the range of 30 to 32 g/dL) is most likely not clinically significant; however, it should be interpreted with caution in correlation with other red cell parameters and the patient's clinical condition. RDW 12.0 11.0 - 15.0 % [facility] PLATELETS 228 140 - 400 Thousand/ uL [facility] MPV 10.5 7.5 - 12.5 fL [facility] NEUTROPHIL ABSOLUTE 4,891 1,500 - 7,800 cells/uL [facility] LYMPHOCYTE ABSOLUTE 1,752 850 - 3,900 cells/uL [facility] MONOCYTE ABSOLUTE 518 200 - 950 cells/uL [facility] EOSINOPHIL ABSOLUTE 102 15 - 500 cells/uL [facility] BASOPHILS ABSOLUTE 37 0 - 200 cells/uL [facility] NEUTROPHIL 67 % [facility] LYMPHOCYTES 24.0 % [facility] MONOCYTE 7.1 % [facility] EOSINOPHILS 1.4 % [facility] [employer]Dalila Boland BASOPHILS 0.5 % [facility] [employer]Dalila Boland Comment: Test Performed at: [facility] [place] [address] [place] ??[phone] [facility] Blood 01/12/2024 10:4 4 AM NEW PRODUCT TRAINER 01/12/2024 7:59 PM NEW PRODUCT TRAINER Prabhjot Ryder MD HEMATOLOGY ORDERABLE S [facility] [phone] [facility] [employer] [address] [place] [address] * (ABNORMAL) COMPREHENSIVE METABOLIC PANEL (01/12/2024 10:44 AM NEW PRODUCT TRAINER) GLUCOSE 188(H) 65 - 99 mg/dL [facility] [employer]Dalila Boland Comment: ? Fasting reference interval For someone without known diabetes, a glucose value >125 mg/dL indicates that they may have diabetes and this should be confirmed with a follow-up test. BUN 18 7 - 25 mg/dL [facility] [employer]Ruth Boland CREATININE 0.95 0.70 - 1.35 mg/dL [facility] [employer]Dalila Boland GFR 89 > OR = 60 mL/min/1. 73m2 [employer]Ruth zeny Boland BUN/CREAT RATIO SEE NOTE: 6 22 (calc) [employer]uth [facility] Comment: ?? Not Reported: BUN and Creatinine are within ?? reference range. ? SODIUM 136 135 - 146 mmol/L [facility] POTASSIUM 3.7 3.5 - 5.3 mmol/L [facility] CHLORIDE 99 98 - 110 mmol/L [facility] [employer]Dalila Boland CO2 25 20 - 32 mmol/L [employer]Ruth Boland CALCIUM 9.9 8.6 - 10.3 mg/dL [facility] [employer]Ruth Boland TOTAL PROTEIN 7.5 6.1 - 8.1 g/dL [employer]uth [facility]and ALBUMIN 4.7 3.6 - 5.1 g/dL [employer]uth [facility] GLOBULIN 2.8 1.9 - 3.7 g/dL (calc) [facility] ALBUMIN/GLOBULIN RATIO 1.7 1.0 - 2.5 (calc) [facility] BILIRUBIN TOTAL 0.7 0.2 - 1.2 mg/dL [facility] [employer] ALKALINE PHOSPHATASE 46 35 - 144 U/L [facility] [employer] zeny Boland AST 31 10 - 35 U/L [facility] [employer] ALT 43 9 - 46 U/L [facility] Comment: Test Performed at: [facility] [place] [address] [address] [place] ??[phone] [facility] Blood 01/12/2024 10:4 4 AM NEW PRODUCT TRAINER 01/12/2024 7:59 PM NEW PRODUCT TRAINER Prabhjot Ryder MD CHEMISTRY ORDERABLES Performing Organization Address City/[facility]/ZIP Code Phone Number [facility] [phone] [place] [address] [place] [address] * C-REACTIVE PROTEIN (01/12/2024 10:44 AM NEW PRODUCT TRAINER) CRP <5.0 <8.0 mg/L [facility] [employer] Comment: Test Performed at: [facility] [place] [address] [place] ??[phone] [facility] Blood 01/12/2024 10:4 4 AM NEW PRODUCT TRAINER 01/12/2024 7:59 PM NEW PRODUCT TRAINER Prabhjot Ryder MD CHEMISTRY ORDERABLES Performing Organization Address City/[facility] Code Phone Number [facility] [phone] [place] [address] [place] [address] documented in this encounter Visit Diagnoses Diagnosis Crohn's disease of large intestine with other complication- Primary documented in this encounter Administered Medications Inactive Administered Medications - up to 3 most recent administrations Medication Order MAR Action Action Date Dose Rate Site acetaminophen (TYLENOL) tablet 975 mg 975 mg (rounded from 1,000 mg), Oral, ONE TIME ONLY, 1 dose, On Tue01/12/24 at 1045, Routine Given 01/12/2024 10:56 AM NEW PRODUCT TRAINER 975 mg inFLIXimab-dyyb (INFLECTRA) 1,157 mg in sodium chloride 0.9% 500 mL IVPB 1,157 mg (10 mg/kg ? 115.7 kg), IV, ONE TIME ONLY, 1 dose, On Roxy 01/12/24 at 1045, Routine New Bag 01/12/2024 11:26 AM NEW PRODUCT TRAINER 1,157 mg 20 mL/hr loratadine (CLARITIN) tablet 10 mg 10 mg, Oral, ONE TIME ONLY, 1 dose, On Roxy 01/12/24 at 1045, Routine Given 01/12/2024 10:56 AM NEW PRODUCT TRAINER 10 mg sodium chloride flush injection 10 mL 10 mL, IV, SEE ADMIN INSTRUCTIONS, Starting on Roxy 01/12/24 at 1042, Until Tue01/13/24 at 0303, Routine Given 01/12/2024 10:57 AM NEW PRODUCT TRAINER 10 mL documented in this encounter Care Teams Data Architect Relationship Specialty Start Date End Date Mike Mitchell MD [address] [place] [address] PCP - General Family Practice 09/28/22 documented as of this encounter
--- OUTSIDE RECORDS SUMMARY | 2024-01-30 08:29 | XMS_ITS | Encounter Summary ---
Author Organization [facility] Address [address] [facility] Attn: [place] [address] Care Team Providers Care Inspector Firearms Name Role Phone Mike Mitchell MD Primary Care Provider [phone] Encounter Details Date Type Department Care Team (Latest Contact Info) Description 01/12/2024 Travel Social History Tobacco Use Types Packs/Day [...] as of this encounter Plan of Treatment Upcoming Encounters Date Type Department Care Team (Late st Contact Info) Description 02/09/2024 11:00 AM CARPENTER FOREMAN Appointment [address] [address] Prabhjot Ryder MD [address] [facility] [address] [place] [address] Infusion Misti 03/27/2024 10:20 AM CARPENTER FOREMAN Office Visit [facility] Gastroenterology [facility] [address] [facility] [address] [place] [address] Prabhjot Ryder MD [address] [facility] [address] [place] [address] documented as of this encounter Visit Diagnoses Not on filedocumented in this encounter Care Teams Inspector Firearms Relationship Specialty Start Date End Date Mike Mitchell MD [address] [place] [address] PCP - General Family Practice 09/28/22 documented as of this encounter
--- OUTSIDE RECORDS SUMMARY | 2024-01-30 08:29 | XMS_ITS | Encounter Summary ---
Author Organization [facility] Address [address] [place] [address] Care Team Providers Care Mortgage Loan Officer Originator Name Role Phone Mike Mitchell MD Primary Care Provider [phone] [phone] Encounter Details Date Type Department Care Team (Latest Contact Info) Description 01/13/2024 Orders Only [facility] Gastroenterology [facility] [address] [facility] [address] [place] [address] Prabhjot Ryder MD [address] [facility] [address] [place] [address] Crohn's disease of colon with other complication (Primary Dx) Social History Tobacco Use Types [...] st Contact Info) Description 02/09/2024 11:00 AM AUTOMOTIVE MACHINIST APPRENTICE Appointment [place] [address] [address] Prabhjot Ryder MD [address] [facility] [address] [place] [address] Misti Tapia 03/27/2024 10:20 AM AUTOMOTIVE MACHINIST APPRENTICE Office Visit [facility] Gastroenterology [facility] [place] [address] [facility] [address] [place] [address] Prabhjot Ryder MD [address] [facility] [address] [place] [address] documented as of this encounter Procedures Procedure Name Priority Date/Time Associated Diagnosis Comments LIPID PANEL Routine 01/16/2024 10:02 AM AUTOMOTIVE MACHINIST APPRENTICE Crohn's disease of colon with other complication documented in this encounter Results * (ABNORMAL) LIPID PANEL (01/16/2024 10:02 AM AUTOMOTIVE MACHINIST APPRENTICE) CHOLESTEROL 201(H) <200 mg/dL [facility] HDL 49 > OR = 40 mg/dL [facility] TRIGLYCERIDE 253(H) <150 mg/dL [facility] Comment: If a non-fasting specimen was collected, consider repeat triglyceride testing on a fasting specimen if clinically indicated. Bharti et al. J. of Clin. Lipidol. 2015;9:129-169. LDL CALCULATED 116(H) mg/dL (calc) [facility] Comment: Reference range: <100 Desirable range <100 mg/dL for primary prevention; ?? <70 mg/dL for patients with CHD or diabetic patients with > or = 2 CHD risk factors. LDL-C is now calculated using the Raiv-Fela calculation, which is a validated novel method providing better accuracy than the Friedewald equation in the estimation of LDL-C. Ravi SS et al. LAKESHIA. 2013;310(19): 2061-7514 (http://education.EnGeneIC/faq/JHI465) CHOL/HDL RATIO 4.1 <5.0 (calc) [facility] NON-HDL CHOLESTEROL 152(H) <130 mg/dL (calc) [facility] Comment: For patients with diabetes plus 1 major ASCVD risk factor, treating to a non-HDL-C goal of <100 mg/dL (LDL-C of <70 mg/dL) is considered a therapeutic option. FASTING:YES FASTING: YES Test Performed at: [facility] [address] ??[phone] Rome Castillo MD Blood 01/16/2024 10:0 2 AM AUTOMOTIVE MACHINIST APPRENTICE 01/16/2024 10:02 AM AUTOMOTIVE MACHINIST APPRENTICE Prabhjot Ryder MD CHEMISTRY ORDERABLES [facility] [phone] [facility] [address] [place] [address] documented in this encounter Visit Diagnoses Diagnosis Crohn's disease of colon with other complication- Primary documented in this encounter Care Teams Mortgage Loan Officer Originator Relationship Specialty Start Date End Date Mike Mitchell MD [address] [place] [phone] PCP - General Family Practice 09/28/22 documented as of this encounter
--- OUTSIDE RECORDS SUMMARY | 2024-01-30 08:29 | XMS_ITS | Encounter Summary ---
Author Organization [facility] Address [address] [place] [address] Care Team Providers Care Director Geophysical Laboratory Name Role Phone Mike Mitchell MD Primary Care Provider [phone] Encounter Details Date Type Department Care Team (Late Contact Info) Description 01/26/2024 Abstract [facility] Gastroenterology [facility] [address] [facility] [address] [place] [address] Prabhjot Ryder MD [address] [facility] [address] [place] [address] Social History Tobacco Use Types Packs/Day Years [...] Encounters Date Type Department Care Team (Late Contact Info) Description 02/09/2024 11:00 AM OPERATING ENGINEER Appointment [address] [phone] Prabhjot Ryder MD [address] [facility] [address] [place] [address] Infusion Misti Cobos 03/27/2024 10:20 AM OPERATING ENGINEER Office Visit [facility] Gastroenterology [facility] [address] [facility] [address] [place] [address] Prabhjot Ryder MD [address] [facility] [address] [place] [address] documented as of this encounter Visit Diagnoses Not on filedocumented in this encounter Care Teams Director Geophysical Laboratory Relationship Specialty Start Date End Date Mike Mitchell MD [address] [place] [address] PCP - General Family Practice 09/28/22 documented as of this encounter
--- OUTSIDE RECORDS SUMMARY | 2024-01-30 08:29 | XMS_ITS | Encounter Summary ---
Author Organization [facility] Address [address] [place] [address] Care Team Providers Care Retail Field Supervisor Name Role Phone Mike Mitchell MD Primary Care Provider [phone] [phone] Encounter Details Date Type Department Care Team (Latest Contact Info) Description 01/25/2024 Orders Only [facility] Gastroenterology [facility] [address] [facility] [address] [place] [address] Prabhjot Ryder MD [address] [facility] [address] [place] [address] Crohn's disease of colon with [...] st Contact Info) Description 02/09/2024 11:00 AM CREDIT CONTROL ADMINISTRATOR Appointment [place] [address] [address] Prabhjot Ryder MD [address] [facility] [address] [place] [address] Misti Tapia 03/27/2024 10:20 AM CREDIT CONTROL ADMINISTRATOR Office Visit [facility] Gastroenterology [facility] [place] [address] [facility] [address] [place] [address] Prabhjot Ryder MD [address] [facility] [address] [place] [address] documented as of this encounter Visit Diagnoses Diagnosis Crohn's disease of colon with other complication- Primary documented in this encounter Care Teams Retail Field Supervisor Relationship Specialty Start Date End Date Mike Mitchell MD [address] [place] [address] PCP - General Family Practice 09/28/22 documented as of this encounter
--- OUTSIDE RECORDS SUMMARY | 2024-01-30 08:29 | XMS_ITS | Encounter Summary ---
Author Organization [facility] Address [address] [place] [address] Care Team Providers Care Optical Sales Associate Name Role Phone Mike Mitchell MD Primary Care Provider [phone] [phone] Reason for Visit * Reason Onset Date Comments Medication Authorization 01/26/2024 Rinvoq 45 mg Encounter Details Date Type Department Care Team (Late st Contact Info) Description 01/26/2024 Medication Prior Auth Encounter [facility] Gastroenterology [facility] [address] [facility] [address] [place] [address] Luz Frank Social History Tobacco Use Types Packs/Day Years [...] on file documented as of this encounter Progress Notes * Luz Frank - 01/26/2024 12:53 PM CST Message from Plan Your PA request has been approved. Additional information will be provided in the approval communication. (Message [id number]). Authorization Expiration Date: January 25, 2025. [place] MARKETING EXECUTIVE documented in this encounter Plan of Treatment Upcoming Encounters Date Type Department Care Team (Late st Contact Info) Description 02/09/2024 11:00 AM RETAIL MARKETING EXECUTIVE Appointment [facility] [address] [facility] [address] [place] [phone] Prabhjot Ryder MD [address] [facility] [address] [place] [address] Misti Tapia 03/27/2024 10:20 AM RETAIL MARKETING EXECUTIVE Office Visit [facility] Gastroenterology [facility] [address] [facility] [address] [address] [place] [address] Prabhjot Ryder MD [address] [facility] [address] [place] [address] documented as of this encounter Visit Diagnoses Not on filedocumented in this encounter Care Teams Optical Sales Associate Relationship Specialty Start Date End Date Mike Mitchell MD [address] [place] [address] PCP - General Family Practice 09/28/22 documented as of this encounter
--- OUTSIDE RECORDS SUMMARY | 2024-01-30 08:29 | XMS_ITS | Clinical Summary ---
Author Organization [facility] Address [address] [place] [phone] Phone Care Team Providers Care Digital Strategist Senior Manager Name Role Phone Mike Mitchell MD Primary Care Provider [phone] Allergies Active Allergy Reactions Criticality Noted Date Comments Azathioprine Other (See Comments) 10/26/2022 Caused pancreatitis [place] Juice Hives,Itching High 09/16/2009 Tomato Hives,Shortness of Breath/Wheezing High 09/16/2009 Cerner Allergy Text Annotation: Tomatoes Medications Medication Sig Dispensed Refills Start Date End Date Status esomeprazole (NexIUM) 20 mg Capsule, Delayed Release(E.C.) Take 20 mg by mouth 2 times daily. Active potassium chloride (KLOR-CON) 20 mEq Extended Release tablet Take 20 mEq by mouth daily. Active fenofibrate nanocrystallized (TRICOR) 48 mg tablet Take 48 mg by mouth daily. Active chlorthalidone (HYGROTON) 25 mg tablet Take 25 mg by mouth daily. Active allopurinoL (ZYLOPRIM) 100 mg tablet Take 100 mg by mouth 2 times daily. Active loperamide (IMODIUM) 2 mg capsule Take 2 mg by mouth every 3 hours as needed for Diarrhea/Loose Stools. Up to 6 per day Active testosterone cypionate (DEPO-TESTOSTERONE) 200 mg/mL Oil Inject 200 mg by intramuscular injection every 2 weeks. Active CALCIUM CARBONATE-VITAMIN D3 ORAL Take by mouth. Active pregabalin (LYRICA) 50 mg Capsule Take 50 mg by mouth. Active traZODone (DESYREL) 50 mg tablet Take 50 mg by mouth daily at bedtime. Active tadalafiL (CIALIS) 20 mg tablet Take 20 mg by mouth 1 time daily as needed for Erectile Dysfunction. Active multivitamin (DAILY-SCARLETT) tablet Take 1 Tablet by mouth daily. Active iron,carbonyl/ascor bic acid (VITRON-C ORAL) Take by mouth. Active MAGNESIUM OXIDE ORAL Take by mouth. Active cyanocobalamin (VITAMIN B-12) 100 mcg tablet Take 100 mcg by mouth daily. Active amlodipine besylate (AMLODIPINE ORAL) Take by mouth. Act maurilio mesalamine (CANASA) 1,000 mg SuppositoryIndicati ons:Proctitis INSERT 1 SUPPOSITORY (1,000 MG) BY RECTUM DAILY AT BEDTIME. 90 Suppository 1 11/07/19 24 Active upadacitinib (Rinvoq) 45 mg Tablet Sustained Release 24HRIndications:sev ere Crohn's disease Take 45 mg by mouth daily. 84 Tablet 01/25/20 24 025 Active upadacitinib (Rinvoq) 30 mg Tablet Sustained Release 24HRIndications:Receiving Dock Checker hn's disease of colon with other complication Take 30 mg by mouth daily. 90 Tablet 3 01/25/20 24 Active sodium chloride 0.9% Parenteral Solution 250 mL with inFLIXimab 100 mg Recon Soln 10 mg Inject 10 mg by intravenous injection one time only. Every 6 wks 024 Discontinued Active Problems Problem Noted Date Diagnosed Date Crohn's disease of large intestine with other co mplication 12/06/2023 Peptic ulcer 10/26/2022 Pancreatitis 10/26/2022 Kidney stone 10/26/2022 Granulomatous colitis 10/26/2022 Encounters Date Type Department Care Team Description 01/26/2024 Abstract [facility] [address] [place] [address] Prabhjot Ryder MD 01/26/2024 Medication Prior Auth Encounter [facility] Raf[address] Chappell [address] [place] [address] Luz Frank 01/25/2024 Orders Only [facility] [address] [place] [address] Prabhjot Ryder MD Crohn's disease of colon with other complication (Primary Dx) 01/13/2024 Orders Only [facility] [address] [facility] [address] [place] [address] Prabhjot Ryder MD Crohn's disease of colon with other complication (Primary Dx) 01/12/2024 10:39 AM NETTING WEAVER - 01/12/2024 11:59 PM NETTING WEAVER Hospital Encounter [facility] [address] [place] [address] Prabhjot Ryder MD Infusion 5, [place] Discharge Disposition: Home or Self Care 01/12/2024 Travel 01/02/2024 11:44 AM NETTING WEAVER Anesthesia Event [facility] Endoscopy [facility] [address] [place] [address] Lo Roche MD 01/02/2024 11:00 AM NETTING WEAVER - 01/02/2024 11:40 AM NETTING WEAVER Surgery [facility] [address] [place] [address] Prabhjot Ryder MD POUCHOSCOPY 01/02/2024 9:50 AM NETTING WEAVER - 01/02/2024 12:37 PM NETTING WEAVER Hospital Encounter [facility] [address] [place] [address] Prabhjot Ryder MD Crohn's disease of colon with other complication Discharge Disposition: Home or Self Care 12/09/2023 [facility] [address] [place] [address] Prabhjot Ryder MD 12/08/2023 10:43 AM CDT - 12/08/2023 11:59 PM CDT Hospital Encounter [facility] [address] [place] [address] Prabhjot Ryder MD Infusion 6, [place] Discharge Disposition: Home or Self Care 12/06/2023 Orders Only [facility] [address] [place] [address] Prabhjot Ryder MD Crohn's disease of large intestine with other complication (Primary Dx) 12/06/2023 Orders Only [facility] [address] [place] [address] Prabhjot Ryder MD 11/23/2023 Orders Only [facility] [address] [place] [address] Justyna Sorto Crohn's disease of colon with other complication 11/10/2023 10:35 AM CDT - 11/10/2023 11:59 PM CDT Hospital Encounter [facility] [address] [place] [address] Prabhjot Ryder MD Infusion 9, [place] Discharge Disposition: Home or Self Care 11/08/2023 9:20 AM CDT Office Visit [facility] [address] [place] [address] Prabhjot Ryder MD Crohn's disease of colon with other complication (Primary Dx) 11/07/2023 Refill [facility] [address] [place] [address] Prabhjot Ryder MD Proctitis 11/01/2023 External Device Data STL ABSTRACTION Provider, Abstract from Last 3 Months Family History Medical History Relation Name Comments Colon Cancer Neg Hx Social History Tobacco Use Types Packs/Day Years Used Date Smoking Tobacco: Never Tobacco Cessation:Counseling Given: Not Answered [...] Comments Blood Pressure 152/83 01/12/2024 10:45 AM NETTING WEAVER Pulse 75 01/12/2024 10:45 AM NETTING WEAVER Temperature 37.1 ??C (98.8 ??F) 01/12/2024 10:[address] Respiratory Rate 16 01/12/2024 10:45 AM NETTING WEAVER Oxygen Saturation 94% 01/02/2024 12:26 PM NETTING WEAVER Inhaled Oxygen Concentration - - Weight 115.7 kg (255 lb) 01/12/2024 10:00 AM NETTING WEAVER Height 182.9 cm (6') 12/12/2023 1:33 PM NETTING WEAVER Body Mass Index 34.58 12/12/2023 1:33 PM NETTING WEAVER Plan of Treatment Upcoming Encounters Date Type Department Care Team (Late st Contact Info) Description 02/09/2024 11:00 AM NETTING WEAVER Appointment [address] [place] [address] Prabhjot Ryder MD [address] [address] [place] [address] Infusion Mist[place] Cobos 03/27/2024 10:20 AM NETTING WEAVER Office Visit [facility] [address] [place] [address] Prabhjot Ryder MD [address] [facility] [address] [place] [address] Health Maintenance Due Date Last Done Comments Pre-Diabetes and Diabetes Screening 1960 DTAP/TDAP/TD VACCINES (1 - Tdap) 1978 FIT-DNA Q 3 years 2004 FIT/FOBT Q 1 year 2004 Flex Sig/CT Colonography Q 5 years 2004 INFLUENZA VACCINE (#1) 2023 COLORECTAL SCREENING 07/13/2028 07/13/2018, 07/13/2018, 03/17/2017 Colorectal Cancer Screening 07/13/2028 RSV VACCINE (60+ or ) (1 - 1-dose 75+ series) 2034 ZOSTER VACCINE Completed 03/27/2019, 01/23/2019 PNEUMOCOCCAL VACCINE 0-64 YEARS Aged Out No longer eligible b ased on patient's age to complete this topic Procedures Procedure Name Priority Date/Time Associated Diagnosis Comments LIPID PANEL Routine 01/16/2024 10:02 AM NETTING WEAVER Crohn's disease of colon with other complication CBC WITH DIFFERENTIAL Routine 01/12/2024 10:44 AM NETTING WEAVER Crohn's disease of large intestine with other complication COMPREHENSIVE METABOLIC PANEL Routine 01/12/2024 10:44 AM NETTING WEAVER Crohn's disease of large intestine with other complication C-REACTIVE PROTEIN Routine 01/12/2024 10:44 AM NETTING WEAVER Crohn's disease of large intestine with other complication POUCHOSCOPY REPORT 01/02/2024 12:13 PM NETTING WEAVER PATHOLOGY Pathology 01/02/2024 11:59 AM NETTING WEAVER Crohn's disease of colon with other complication NC NDSC EVAL INTSTINAL POUCH DX W/COLLJ SPEC SPX 01/02/2024 11:00 AM NETTING WEAVER Crohn's disease of colon with other complication Case Notes 12/12/23-pt to do enemas until clear as he did last time, instructions emailed, PAT complete-ss CBC WITH DIFFERENTIAL Routine 11/23/2023 2:04 PM CDT Crohn's disease of colon with other complication COMPREHENSIVE METABOLIC PANEL Routine 11/23/2023 2:04 PM CDT Crohn's disease of colon with other complication from Last 3 Months Results * (ABNORMAL) LIPID PANEL (01/16/2024 10:02 AM NETTING WEAVER) CHOLESTEROL 201(H) <200 mg/dL [facility] [...] factors. LDL-C is now calculated using the Ravi-Chahal calculation, which is a validated novel method providing better accuracy than the Friedewald equation in the estimation of LDL-C. Ravi ACKERMAN et al. LAKESHIA. 2013;310(19): 0157-6137 (http://education.Saberr/faq/IZO786) CHOL/HDL RATIO 4.1 <5.0 (calc) [facility] NON-HDL CHOLESTEROL 152(H) <130 mg/dL (calc) [facility] Comment: For patients with diabetes plus 1 major ASCVD risk factor, treating to a non-HDL-C goal of <100 mg/dL (LDL-C of <70 mg/dL) is considered a therapeutic option. FASTING:YES FASTING: YES Test Performed at: [facility] ??[address] Rome Castillo MD Blood 01/16/2024 10:0 2 AM NETTING WEAVER 01/16/2024 10:02 AM NETTING WEAVER Prabhjot Ryder MD CHEMISTRY ORDERABLES [facility] [phone] [address] * (ABNORMAL) CBC WITH DIFFERENTIAL (01/12/2024 10:44 AM NETTING WEAVER) Only the most recent of2 resultswithin the time period is included. WBC 7.3 3.8 - 10.8 Thousand/ uL [facility] RBC 5.73 4.20 - 5.80 Million/u L [facility] HEMOGLOBIN 18.4(H) 13.2 - 17.1 [...] [facility] LYMPHOCYTES 24.0 % [facility] MONOCYTE 7.1 % [facility] EOSINOPHILS 1.4 % [facility] BASOPHILS 0.5 % [facility] Comment: Test Performed at: [facility] [address] [place], [place] ??[address] [facility] Blood 01/12/2024 10:4 4 AM NETTING WEAVER 01/12/2024 7:59 PM NETTING WEAVER Prabhjot Ryder MD HEMATOLOGY ORDERABLE S Performing Organization Address City/[facility] Phone Number [facility] [phone] [facility] [address] [place] [address] * C-REACTIVE PROTEIN (01/12/2024 10:44 AM NETTING WEAVER) CRP <5.0 <8.0 mg/L [facility] Comment: Test Performed at: [facility] [address] [place], [place] ??[address] [facility] Blood 01/12/2024 10:4 4 AM NETTING WEAVER 01/12/2024 7:59 PM NETTING WEAVER Prabhjot Ryder MD CHEMISTRY ORDERABLES [facility] [phone] [facility] [address] [place] [address] * (ABNORMAL) COMPREHENSIVE METABOLIC PANEL (01/12/2024 10:44 AM NETTING WEAVER) Only the most recent of2 resultswithin the time period is included. GLUCOSE 188(H) 65 - 99 mg/dL [facility] Comment: ? Fasting reference interval For someone without known diabetes, a glucose value >125 mg/dL indicates that they may have diabetes and this should be confirmed with a follow-up test. BUN 18 7 - 25 mg/dL [facility] CREATININE 0.95 0.70 - 1.35 mg/dL [facility] GFR 89 > OR = 60 mL/min/1. 73m2 [facility] BUN/CREAT RATIO SEE NOTE: (calc) [facility] Comment: ?? Not Reported: BUN and Creatinine are within ?? reference range. ? SODIUM 136 135 - 146 mmol/L [facility] POTASSIUM 3.7 3.5 - 5.3 mmol/L [facility] CHLORIDE 99 98 - 110 mmol/L [facility] CO2 25 20 - 32 mmol/L [facility] CALCIUM 9.9 8.6 - 10.3 mg/dL [facility] TOTAL PROTEIN 7.5 6.1 - 8.1 g/dL [facility] ALBUMIN 4.7 3.6 - 5.1 g/dL [facility] GLOBULIN 2.8 1.9 - 3.7 g/dL (calc) [facility] ALBUMIN/GLOBULIN RATIO 1.7 1.0 - 2.5 (calc) [facility] BILIRUBIN TOTAL 0.7 0.2 - 1.2 mg/dL [facility] ALKALINE PHOSPHATASE 46 35 - 144 U/L [facility] AST 31 10 - 35 U/L [facility] ALT 43 9 - 46 U/L [facility] Comment: Test Performed at: [facility] [address] [place] ??[address] Rome Thi Vo Blood 01/12/2024 10:4 4 AM NETTING WEAVER 01/12/2024 7:59 PM NETTING WEAVER Prabhjot Ryder MD CHEMISTRY ORDERABLES [facility] [phone] [facility] [address] [place] [address] * POUCHOSCOPY REPORT (01/02/2024 12:13 PM NETTING WEAVER) Narrative Procedure Note Prabhjot Ryder MD - 01/02/2024 12:13 PM CST [facility] Patient Name: Kris Spence Procedure Date: 01/02/2024 Date of : 1960 Age: 63 Attending MD: Prabhjot Ryder MD, Procedure: Pouchoscopy Indications: Disease activity assessment of Crohn's disease of the small bowel and colon, Assess therapeutic response to therapy of Crohn's disease of the small bowel and colon Patient Profile: 63y/oM here for follow up of crohn's activity after mesalamine suppository addition to infliximab 10MG/KG every 4 weeks. Providers: Prabhjot Ryder MD Referring MD: Mike Mitchell MD Medicines: Monitored Anesthesia Care Procedure: Informed consent was obtained for the procedure, including moderate sedation after risks were discussed. Based on the pre-procedure assessment, including review of the patient's medical history, medications, allergies, and review of systems, the patient was deemed to be an appropriate candidate for sedation. A timeout was performed. Continuous ECG monitoring, pulse oximetry, blood pressure monitoring, and direct observation were performed. The Colonoscope was introduced through the ileoanal anastomosis via the anus and advanced to the meghna-terminal ileum. The procedure was performed without difficulty. The patient tolerated the procedure well. The quality of the bowel preparation was good. Estimated Blood Loss: Estimated blood loss: none. Findings: Patient is status-post total colectomy with an Ileoanal pouch anastomosis. The perianal and digital rectal examinations were normal. The area at 35 cm proximal to the anus contained a benign-appearing, intrinsic moderate stenosis measuring 1 cm (in length) that was traversed. Biopsies were taken with a cold forceps for histology. A diffuse area of mucosa in the pouch inlet (18cm) was severely erythematous. This was biopsied with a cold forceps for histology. There was a rectal cuff beginning at 3 cm from the anal verge, characterized by edema, erythema and inflammation. The cuff extended 3 cm in length. Biopsies were taken with a cold forceps for histology. The exam was otherwise without abnormality. Complications: No immediate complications. 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 Biopsied. - Erythematous mucosa at the pouch inlet. Biopsied. - Rectal cuff with edema, erythema and inflammation seen. Biopsied. - The examination was otherwise normal. Recommendation: - Discharge patient to home (ambulatory). - Resume previous diet. - Continue present medications. - Patient showing worsening disease on infliximab 10mg/kg every 4 weeks, and mesalamine suppositories. Would consider this failure of treatment. Will consider skyrizi as next, and possible referral to IBD center. - I will call you to discuss pathology next week. Prabhjot Ryder MD 01/02/2024 12:13:13 PM This report has been signed electronically. Number of Addenda: 0 [address] [address] Prabhjot Ryder MD GI PROCEDURE ORDERAB LES * PATHOLOGY (01/02/2024 11:59 AM NETTING WEAVER) CASE REPORT Surgical Pathology Report ? Case: [id number] ? Authorizing Provider: ??Prabhjot Ryder MD ?Collected: ? 01/02/2024 11:59 AM ? Ordering Location: ? [facility] Endoscopy ?? Received: ?01/03/2024 07:51 AM ? [facility] ? Pathologist: ? Remberto Mayfield MD ? Specimens: ?? A) - Small Intestine, bx 35 cm ? B) - Small Intestine, bx 18cm ? C) - Rectum, bx cuff ? 4 4:25 PM [email or web address] [facility] FINAL DIAGNOSIS A. Small intestine, biopsy at 35 cm: - Polypoid fragment of acutely inflamed granulation tissue. B. Small intestine, biopsy at 18 cm: - Active chronic enteritis, moderate to severe, with ulceration. C. Colon, rectal cuff, biopsy: - Anorectal junction with active inflammation, mild architectural distortion, and ulceration. - Small intestinal mucosa with moderate active chronic enteritis. 4 4:25 PM [email or web address] [facility]. KRYSTIAN S DESCRIPTION Three containers are received labeled Kris Eugeneyoselin . Received in the first container additionally labeled small intestine biopsy 35 cm is a 0.3 x 0.1 x 0.1 cm piece of red-arredondo tissue. The specimen is submitted entirely labeled A1. Received in the second container additionally labeled small intestine biopsy 18 cm are 2 fragments of arredondo tissue, less than 0.1 and 0.4 cm in greatest dimension. The specimen is submitted entirely labeled B1. Received in the third container additionally labeled rectum biopsy cuffed are 5 fragments of arredondo tissue ranging from less than 0.1 to 0.3 cm in greatest dimension. The specimen is submitted entirely labeled C1. KA 4:25 PM [facility] [employer] [facility] MICROSCOPIC DESCRIPTION The slides are labeled [id number] and Kris Spence. The small intestine biopsy at 35 cm shows a fragment of acutely inflamed granulation tissue. A cytokeratin immunostain does not show residual epithelium. A CMV immunostain is negative. The small intestine biopsy at 18 cm shows small intestinal mucosa with moderate to severe active villitis. There are some possible, mild architectural distortion, however the tissue is fragmented and superficial. There is erosion with acutely inflamed granulation tissue which may also be contributing to the subtle architectural distortion. Patchy pyloric type glands are present, however. A CMV immunostain is negative. Viral cytopathic effect, granulomata, basement membrane irregularities, significant intraepithelial lymphocytes, and dysplasia are not identified. The rectal cuff shows fragments of colonic mucosa and anal-rectal junction with active inflammation of both the colonic crypts and the surface squamous mucosa. Detached fragments of inflammatory debris and areas of acutely inflamed granulation tissue are present, suggesting ulceration. Separate fragments of small intestinal mucosa are also present, which show moderate active inflammation and architectural distortion. Patchy pyloric type metaplasia is present. A cytokeratin immunostain does not show occult infiltrative process. A CMV immunostain is negative. 4:25 PM [facility] [employer] [facility] OPERATIVE PROCEDURE 1: POUCHOSCOPY 4:25 PM [facility] CLINICAL INFORMATION Crohn's disease of colon with other complication [K50.118] K50.118-Crohn's disease of colon with other complication 4 4:25 PM NETTING WEAVER [facility] COMMENT Special stain, immunohistochemical, and/or in situ hybridization results are interpreted with controls that demonstrate appropriate staining reactions. Note on use of immunohistochemistry reagents and in situ hybridization probes: These tests were developed and their performance characteristics determined by [facility], Department of Laboratory Medicine. It has not been cleared or approved by the U.S. Food and Drug Administration. The FDA has determined that such clearance or approval is not necessary. The test is used for clinical purposes. It should not be regarded as investigational or for research. This laboratory is certified to perform high complexity testing. Frozen section/operating room consultation, gross examination and dissection, and case sign out may have been performed in part or completely in the following laboratories: [facility], CLIA #[id number] [address] [place] [address] [facility], [place] #[id number] [address] [place] [address] [facility], CLIA #[id number] [address] [place] [address] This report was created with the [employer] voice-activated dictation system. Inherent to this system is the possibility of syntax, grammar, punctuation and other errors that could impact the interpretation of the report. If there are interpretative questions about aspects of this report, please contact the performing pathologist. 4 4:25 PM NETTING WEAVER [facility] Tissue (Small Intestine) Collection / Unknown 01/02/2024 11:59 AM NETTING WEAVER 01/03/2024 7:51 AM NETTING WEAVER Tissue specimen (specimen) (Small Intestine) Collection / Unknown 01/02/2024 12:05 PM NETTING WEAVER 01/03/2024 7:51 AM NETTING WEAVER Tissue specimen (specimen) ENTIRE RECTUM / Unknown 01/02/2024 12:06 PM NETTING WEAVER 01/03/2024 7:51 AM NETTING WEAVER Prabhjot Ryder MD PATHOLOGY/CYTOLOGY O RDERABLES [facility] CLIA# [id number] [address] [place] [address] from Last 3 Months Advance Directives For more information, please contact: [phone] * Full Code (Latest Code Status on File) Date Activated Date Inactivated Comments 01/02/2024 10:02 AM 01/02/2024 2:37 PM Care Teams Digital Strategist Senior Manager Relationship Specialty Start Date End Date Mike Mitchell MD [address] [place] [phone] PCP - General Family Practice 09/28/22
--- OUTSIDE RECORDS SUMMARY | 2024-01-30 08:30 | XMS_ITS | Encounter Summary ---
Author Organization [facility] Address [address] [place] [address] Care Team Providers Care Case Picker Name Role Phone Mike Mitchell MD Primary Care Provider [phone] Reason for Visit * Auth/Cert (Routine) Specialty Diagnoses / Procedures Referred By Roberto moura Referred To Contact Perioperative Diagnoses Crohn's disease of colon with other complication Procedures ME NDSC EVAL INTSTINAL POUCH DX W/COLLJ SPEC SPX POUCHOSCOPY Prabhjot Ryder MD [address] [place] [address] [facility] [address] [place] [address] Referral ID Status Reason Start Date Expiration Date Visits Re quested Visits Authorized [id number] 1 1 Encounter Details Date Type Department Care Team (Late st Contact Info) Description 01/02/2024 11:44 AM ICING MIXER Anesthesia Event [facility] [address] [place] [address] Lo Roche MD [address] [place] [address] Anesthesia Record Procedure Summary Procedure Name Responsible Anesthesiologist Anesthesia Start Time Anesthesia Stop Time POUCHOSCOPY (Anus) Lo Roche MD 01/02/24 1144 01/02/24 1212 Events Date Time Event Comment 01/02/2024 1137 AN Equip Check Anesthesia eq uipment and materials checked in accordance with local policy. 1144 An Start 1144 An Start Data 1144 Pre-Induction Immediate pre- induction anesthetic assessment performed. Vital signs as noted on graphic. 1144 In Room This event disp lays the In Room time documented in the Surgical Log. Deleting this event will not remove it from the log but will remove it from the Grid and Graph timeline. 1151 An Induction 1151 Anesthesia Ready 1153 Procedure Start This event d isplays the Procedure Start time documented in the Surgical Log. Deleting this event will not remove it from the log but will remove it from the Grid and Graph timeline. 1203 Procedure Stop This event di splays the Procedure Stop time documented in the Surgical Log. Deleting this event will not remove it from the log but will remove it from the Grid and Graph timeline. 1208 an stop data 1212 Out of Room This event disp lays the Out of Room time documented in the Surgical Log. Deleting this event will not remove it from the log but will remove it from the Grid and Graph timeline. 1212 An Stop 1212 Hand-off to Receiving [facility] farrah Meds Name Total propofol (DIPRIVAN) 10??mg/mL injection 350 mg lidocaine (XYLOCAINE) 2% injection 40 mg * Agents Name O2 * Blood No blood administrations on file. Lines, Drains, and Airways Type Details Placement Removal Peripheral IV Pre-Hospital Start: No; Orientation: Right; Location: Wrist; Device: Angiocath; Gauge: 20 gauge; Insertion Attempts: 1; Patient Tolerance: tolerated well 01/02/24 1026 by Abigail Ash RN 01/02/24 1219 by Abigail Ash, RN Supraglottic Airway Type: nasal cannula; Confirmation: end tidal CO2, satisfactory chest rise 01/02/24 1137 by Lo Roche MD 01/02/24 1219 by Abigail Ash, RN documented in this encounter Social History [...] on file documented as of this encounter OR Notes * Anesthesia Postprocedure Evaluation - Lo Roche MD - 01/02/2024 12:13 PM CST Post Anesthesia Evaluation Vitals: Vitals Value Taken Time BP 120/86 01/02/24 1212 Temp 37.5 ??C 01/02/24 1212 Resp SpO2 14 % 01/02/24 1212 Pulse 81 01/02/24 1212 Heart Rate Pain Rating: Anesthesia Post Evaluation Patient location during evaluation: PACU Patient participation: patient was able to participate in the post op evaluation Level of consciousness: 0 = alert, responsive, answers simple questions appropriately, able to perform simple tasks Pain management: adequate Airway patency: patent Two or more strategies used to mitigate risk of obstructive sleep apnea Nausea or Vomiting: none Cardiovascular status: regular rate and rhythm Respiratory status: no respiratory symptoms Hydration status: well hydrated No notable events documented. Lo Roche MD G MIXER * Anesthesia Handoff - Lo Roche MD - 01/02/2024 12:12 PM CST Post-Anesthetic transfer of care report elements to appropriate post-anesthesia recovery environment completed in accordance with procedure. I completed my handoff to the receiving nurse during which we: 1. Identified the patient 2. Identified the responsible provider 3. Reviewed the pertinent medical history 4. Discussed the surgical course 5. Reviewed intra-op anesthesia management and issues during anesthesia 6. Set expectations for post-procedure period 7. Orders as necessary and appropriate for continuation of care are present in Epic. 8. Allowed opportunity for questions and acknowledgement of understanding. Vital Signs: Vitals Value Taken Time BP Temp Resp SpO2 Pulse Heart Rate 12:12 PM Lo Roche MD G MIXER * Anesthesia Preprocedure Evaluation - Lo Roche MD - 01/01/2024 7:35 PM CST Images from the original note were not included. Relevant Problems GI (+) Peptic ulcer RENAL (+) Kidney stone Anesthesia Evaluation Nursing notes reviewed Airway Mallampati: II TM distance: >3 FB Dental Pulmonary - normal exam breath sounds clear to auscultation Cardiovascular - normal exam (+) hypertension Rhythm: regular Rate: normal Neuro/Psych Comments: neuropathy GI/Hepatic/Renal (+) GERD, PUD, liver disease, bowel prep Comments: Crohns disease Endo/Other Abdominal Anesthesia History Placement Date: 01/13/23; Placement Time: 1041 (created via procedure documentation); Technique: Direct laryngoscopy; Type: ETT - single; Single Lumen Tube Size: 7.5 mm; Cuffed: Yes; Laryngoscope: Trevino; Blade Size: 2; Location: Oral; Grade View: Grade I; Insertion Attempts: 1; Placement Verification: Auscultation, Capnometry; Removal Date: 01/13/23; Removal Time: 1154 Anesthesia Plan ASA Final: 3 MAC (Discussed risk of recall LMA/ETT as needed) N/A induction Mask airway maintenance NPO status > 8 hours Anesthetic plan and risks discussed with Patient. Plan discussed with Surgeon/Proceduralists. G MIXER documented in this encounter Plan of Treatment Upcoming Encounters Date Type Department Care Team (Late st Contact Info) Description 02/09/2024 11:00 AM ICING MIXER Appointment [address] [address] Prabhjot Ryder MD [address] [place] [address] Infusion Misti Cobos 03/27/2024 10:20 AM ICING MIXER Office Visit [facility] [address] [place] [address] Prabhjot Ryder MD [address] [place] [address] documented as of this encounter Visit Diagnoses Not on filedocumented in this encounter Administered Medications Inactive Administered Medications - up to 3 most recent administrations Medication Order MAR Action Action Date Dose Rate Site lidocaine 2 % (XYLOCAINE) injection IV, INTRA-PROCEDURE PRN, Starting on Tue01/02/24 at 1151, Until Tue01/02/24 at 1212, Routine, Anesthesia Intra-op Given 01/02/2024 11:51 AM ICING MIXER 40 mg propofoL (DIPRIVAN) injection IV, INTRA-PROCEDURE PRN, Starting on Tue01/02/24 at 1151, Until Tue01/02/24 at 1212, Anesthesia Intra-op Given 01/02/2024 12:02 PM ICING MIXER 50 mg Given 01/02/2024 11:59 AM ICING MIXER 50 mg Given 01/02/2024 11:57 AM ICING MIXER 50 mg documented in this encounter Care Teams Case Picker Relationship Specialty Start Date End Date Mike Mitchell MD [address] [place] [id number] PCP - General Family Practice 09/28/22 documented as of this encounter
--- OUTSIDE RECORDS SUMMARY | 2024-01-30 08:30 | XMS_ITS | Encounter Summary ---
Author Organization [facility] Address [address] [place] [address] Care Team Providers Care Accounts Receivable Supervisor Name Role Phone Mike Mitchell MD Primary Care Provider [phone] Reason for Visit * Auth/Cert (Routine) Specialty Diagnoses / Procedures Referred By Roberto moura Referred To Contact Perioperative Diagnoses Crohn's disease of colon with other complication Procedures CA NDSC EVAL INTSTINAL POUCH DX W/COLLJ SPEC SPX POUCHOSCOPY Prabhjot Ryder MD [address] [place] [address] [facility] Endoscopy [facility] [address] [place] [address] Referral ID Status Reason Start Date Expiration Date Visits Re quested Visits Authorized [id number] 1 1 Encounter Details Date Type Department Care Team (Late st Contact Info) Description 01/02/2024 11:00 AM MASON LINER - 01/02/2024 11:40 AM MASON LINER Surgery [facility] Endoscopy [facility] [address] [place] [address] Prabhjot Ryder MD [address] [place] [address] POUCHOSCOPY Surgery Details Date/Time Status Location OR Service Patient Class Case Class Case Type Trauma Case? 01/02/2024 11:00 AM Posted [facility] LSL GI 01 Gastroenterology Outpatient Elective No Panel 1 Procedure LRB Anes Op Region Wound Class Comments POUCHOSCOPY N/A General Anus Surgeon Surgeon Role Service Panel Prabhjot Ryder MD Primary Gastroenterology 1 Case Notes 12/12/23-pt to do enemas until clear as he did last time, instructions emailed, MARIN complete-ss documented in this encounter Social History Tobacco [...] Sign Reading Time Taken Comments Blood Pressure 149/95 01/02/2024 10:10 AM MASON LINER Pulse 81 01/02/2024 10:10 AM MASON LINER Temperature 36.9 ??C (98.5 ??F) 01/02/2024 1 0:10 AM MASON LINER Respiratory Rate 20 01/02/2024 10:1 0 AM MASON LINER Oxygen Saturation 98% 01/02/2024 10: 10 AM MASON LINER Inhaled Oxygen Concentration - - Weight 116.7 kg (257 lb 3.2 oz) 024 10:04 AM MASON LINER Height 182.9 cm (6') 12/12/2023 1:33 PM MASON LINER Body Mass Index 34.88 12/12/2023 1:33 PM MASON LINER documented in this encounter Discharge Instructions * Discharge Instructions* Prabhjot Ryder MD - 01/02/2024 12:04 PM MASON LINER Instructions after Colonoscopy After a colonoscopy it is normal to experience some minor ???gas pains?? because of the air that was introduced to your colon during the procedure. Tylenol will help to relieve any discomfort. You may not have a bowel movement for 1-3 days because of the colonoscopy prep. This is normal. DO NOT drink alcohol until tomorrow. DO NOT drive, operate machinery, make critical decisions until tomorrow. Limit activities that require coordination or balance for 24 hours. Resume your previous diet unless otherwise instructed. Resume your previous medications unless otherwise instructed. Notify your physician if you develop any of the following: Severe pain Fever of 101 degrees F Large amount of bleeding, passing large blood clots, or black tarry stools Redness or soreness at the IV site Persistent cough with fever If tissue samples were taken during the procedure, you will be notified by phone or mail with the results. If you have not been notified within two weeks, please call the office. Office Exchange: N LINER documented in this encounter Medications at Time [...] 6 wks documented as of this encounter H&P Notes * Prabhjot Ryder MD - 01/02/2024 11:48 AM CST [facility] Pre-Endoscopy History & Physical Date: 01/02/2024 Patient: Kris Spence / 63 y.o. / male : 1960 CSN: [id number] Planned procedure: Pouchoscopy Chief Complaint: crohns of the pouch SUBJECTIVE: Kris Spence is a 63 y.o. male who presents for pouchoscopy . The patient denies abdominal pain, nausea, emesis, change in bowel habits, melena, or hematochezia.He is not currently on any anticoagulation/antiplatelet therapy. Ileocolonic crohn's s/p J-pouch 2002 Infliximab 10mg/kg q4wk 10/202205/31/2022 - ulcers at pouch inlet, erosions efferent limb and narrowing 05/2023 - rectal cuff ulceration/proctitis, Added mesalamine suppositories Review of Systems: General: no unintentional weight loss HEENT: no acute changes in vision Respiratory: no shortness of breath Cardiovascular: no chest pain Gastrointestinal: as per HPI Genitourinary: no dysuria Musculoskeletal: no new joint discomfort Neuro: no headache Skin: no obvious rashes or lesions on visualized skin Hematology: no abnormal bruising Past Medical History: Diagnosis Date Crohn's disease GERD (gastroesophageal reflux disease) H/O repair of right rotator cuff History of colostomy reversal History of kidney stones Hyperlipidemia Hypertension Liver hemangioma Neuropathy Pancreatitis Peptic ulcer 10/26/2022 Past Surgical History: Procedure Laterality Date HX COLONOSCOPY HX COLOSTOMY HX HERNIA REPAIR HX ROTATOR CUFF REPAIR HX SURGICAL OTHER tummy tuck x 2 CA NDSC EVAL INTSTINAL POUCH W/BX SINGLE/MULTIPLE N/A 06/06/2023 POUCHOSCOPY performed by Prabhjot Ryder MD at [facility] Social History Tobacco Use Smoking Status Never Smokeless Tobacco Not on file Social History Substance and Sexual Activity Alcohol Use Yes Comment: socially Family History Problem Relation Name Age of Onset Colon Cancer Neg Hx Allergies Allergen Reactions Osgood Juice Hives and Itching Tomato Hives and Shortness of Breath/Wheezing Cerner Allergy Text Annotation: Tomatoes Azathioprine Other (See Comments) Caused pancreatitis No current facility-administered medications for this encounter. OBJECTIVE: BP (!) 149/95 (BP Location: Left arm, Patient Position (BP): Sitting) Pulse 81 Temp 98.5 ??F (36.9 ??C) (Temporal) Resp 20 Ht 6' (1.829 m) Wt 116.7 kg (257 lb 3.2 oz) SpO2 98% BMI 34.88kg/m?? General: pleasant, lying in bed, no distress HEENT: conjunctivae clear Lungs: effort normal, no accessory muscle usage, no respiratory distress Heart: regular rate and rhythm Abdomen: non-distended Extremities: no obvious pedal edema Skin: no obvious rashes or lesions on visualized skin Neuro: alert, cooperative, no gross focal signs on exam ASA classification per anesthesia ASSESSMENT: 1. Crohns of the pouch, pouchoscopy PLAN: - Indications for procedure as noted in HPI. - The patient was informed of the indications for the procedure, the risks/benefits and the alternatives, and agreed to proceed. In particular, the patient was informed of the risk of perforation/ (1:1000), medication side effect, infection, a missed lesion, or incomplete examination. In the case of dilatation, the patient was informed of the risk of perforation (1 to 5%). - Will proceed with the above mentioned procedure(s) as scheduled. Prabhjot Ryder M.D. Department of Gastroenterology [facility] N LINER documented in this encounter Procedure Notes * Prabhjot Ryder MD - 01/02/2024 12:13 PM CSTAssociated Order(s): POUCHOSCOPY REPORT [facility] Endoscopy Patient Name: Kris Spence Procedure Date: [...] signed electronically. Number of Addenda: 0 [address] [facility] [address] N LINER * Abigail Ash RN - 12/12/2023 1:54 PM CST GI PROCEDURE NOTE from Nursing PAT call Patient: Kris Spence : 1960 Endoscopist: Surgeon(s): Prabhjot Ryder MD Upcoming Procedure: Procedure to be Performed: Procedure(s): POUCHOSCOPY Procedure Date/Time: 01/02/2024 at 1100 Diagnosis/Indication for procedure: Pre-Op Diagnosis Codes: * Crohn's disease of colon with other complication [K50.118] Location: [facility] Referring Physician: Mike Mitchell Patient's BMI: Body mass index is 34.58 kg/m??. Is patient a candidate for offsite location? yes Medications Type of prep given: Pt will do enemas until clear as he did last time Previous procedure's prep was good/adequate for exam: yes Instructions sent via: Email Anticoagulants: no Relevant prior procedure/pathology: Procedure: pouchoscopy Physician: Britni Date: 06/06/2023 Location: [facility] Last Pathology: FINAL DIAGNOSIS A. Small intestine, biopsy: - Small bowel mucosa with moderate active inflammation B. Ileum, polypectomy: - Inflammatory pseudopolyp - Negative for dysplasia C. Rectal cuff, ulcer, biopsy: - Severe chronic active proctitis Past Surgical History: Past Surgical History: Procedure Laterality Date HX COLONOSCOPY HX COLOSTOMY HX HERNIA REPAIR HX ROTATOR CUFF REPAIR HX SURGICAL OTHER tummy tuck x 2 CA NDSC EVAL INTSTINAL POUCH W/BX SINGLE/MULTIPLE N/A 06/06/2023 POUCHOSCOPY performed by Prabhjot Ryder MD at [facility] Past Medical History: Past Medical History: Diagnosis Date Crohn's disease GERD (gastroesophageal reflux disease) H/O repair of right rotator cuff History of colostomy reversal History of kidney stones Hyperlipidemia Hypertension Liver hemangioma Neuropathy Pancreatitis Peptic ulcer 10/26/2022 No current facility-administered medications on file prior to encounter. Current Outpatient Medications on File Prior to Encounter Medication Sig Dispense Refill mesalamine (CANASA) 1,000 mg Suppository INSERT 1 SUPPOSITORY (1,000 MG) BY RECTUM DAILY AT BEDTIME. 90 Suppository 1 amlodipine besylate (AMLODIPINE ORAL) Take by mouth. [...] Diarrhea/Loose Stools. Up to 6 per day sodium chloride 0.9% Parenteral Solution 250 mL with inFLIXimab 100 mg Recon Soln 10 mg Inject 10 mg by intravenous injection one time only. Every 6 wks testosterone cypionate (DEPO-TESTOSTERONE) 200 mg/mL Oil Inject [...] tablet Take 100 mcg by mouth daily. N LINER documented in this encounter OR Notes * Misa-OP - Abigail Ash RN - 12/12/2023 1:54 PM CST Images from the original note were not included. STL ANES Routine Pre-Anesthesia Protocol for GI Lab Procedures [facility] Approved by: [facility] Executive Committee Approval Date: 03/24/2023 ORDERS ARE ENTERED ???PER PROTOCOL?? Enter the protocol in the patient???s electronic health record using [employer]: .anestprotocolgilab Nursing Orders: Monitoring Obtain and record vital signs on admission to [facility] Continuous vital signs (Non-invasive blood pressure, pulse oximetry and cardiac monitoring) for: All inpatients All patients currently taking beta-blockers Patients diagnosed with/or at risk for sleep apnea (e.g., STOP-BANG greater than or equal to 3) Glycemic Control POC glucose for diabetics Notify provider for any POC glucose or serum glucose less than 70 mg/dL. If POC Glucose results arecritical, do not delay treatment. If appropriate, may confirm POC with: Nursing Only [id number] (this lab can be obtained at no cost to the patient when confirming a critical high or Critical low POC glucose. See hypoglycemia protocol for additional orders if needed: ST ANES Adult Perianesthesia HYPOglycemia Protocol Notify any provider for any POC glucose or serum glucose greater than 180 mg/dL. When receiving report on an inpatient, confirm if patient is receiving dextrose containing fluids to prevent hypoglycemia. Communicate with the anesthesiologist and request glucose containing fluids be continued or added to intraoperative/intraprocedure fluids. POC glucose within 30 minutes of discharge or transfer to another unit (the time-based intra-procedure POC check may be deferred during short procedures at the discretion of the provider. Laboratory Orders: POC Urine Test (POC7) (if unable to obtain urine, may obtain serum [id number]) All patients with potential for childbearing (menarche to menopause) Medication Orders: Intravenous Line Place #20 gauge IV in non-dominant, non-operative or not otherwise excluded upper extremity unless otherwise ordered by anesthesiologist. Contact responsible anesthesiologist if recommending use of a #22 gauge IV For patients with difficult IV access notify anesthesiologist. For patients with difficult IV access and an implanted infusion port, access the port in accordancewith nursing policies. Local Anesthetic to use to initiate IV line: Lidocaine 2% 0.3mL intradermal ONE TIME to numb area of IV catheter insertion PRN. IV Fluid- Adult patients (age 18 years or greater): Lactated ringer's solution to infuse at 125mL/hr, may discontinue upon discharge from procedure area If patient is found to have a serum creatinine >2 or history of renal failure, RN may change to NS at 10ml/hr N LINER documented in this encounter Plan of Treatment Upcoming Encounters Date Type Department Care Team (Late st Contact Info) Description 02/09/2024 11:00 AM MASON LINER Appointment [place] [id number] [facility] [address] [place] [address] Prabhjot Ryder MD [address] [facility] [address] [place] [address] Infusion Misti Cobos 03/27/2024 10:20 AM MASON LINER Office Visit [facility] Gastroenterology [address] [place] [address] Prabhjot Ryder MD [address] [place] [address] documented as of this encounter Procedures Procedure Name Priority Date/Time Associated Diagnosis Comments POUCHOSCOPY REPORT 01/02/2024 12:13 PM MASON LINER PATHOLOGY Pathology 01/02/2024 11:59 AM MASON LINER Crohn's disease of colon with other complication CA NDSC EVAL INTSTINAL POUCH DX W/COLLJ SPEC SPX 01/02/2024 11:00 AM MASON LINER Crohn's disease of colon with other complication Case Notes 12/12/23-pt to do enemas until clear as he did last time, instructions emailed, PAT complete-ss documented in this encounter Results * POUCHOSCOPY REPORT (01/02/2024 12:13 PM MASON LINER) Narrative Procedure Note Prabhjot Ryder MD - 01/02/2024 12:13 PM CST [facility] Endoscopy Patient Name: Kris Spence Procedure Date: [...] consider this failure of treatment. Will consider raul as next, and possible referral to IBD center. - I will call you to discuss pathology next week. Prabhjot Ryder MD 01/02/2024 12:13:13 PM This report has been signed electronically. Number of Addenda: 0 [address] [facility] [address] Prabhjot Ryder MD GI PROCEDURE ORDERAB LES * PATHOLOGY (01/02/2024 11:59 AM MASON LINER) CASE REPORT Surgical Pathology Report ? Case: [id number] ? Authorizing Provider: ??Prabhjot Ryder MD ?Collected: ? 01/02/2024 11:59 AM ? Ordering Location: ? [facility] Endoscopy ?? Received: ?01/03/2024 07:51 AM ? Center [facility] ? Pathologist: ? Remberto Mayfield MD ? Specimens: ?? A) - Small Intestine, bx 35 cm ? B) - Small Intestine, bx 18cm ? C) - Rectum, bx cuff ? 4 4:25 PM [facility] FINAL DIAGNOSIS A. Small intestine, biopsy at 35 cm: - Polypoid fragment of acutely inflamed granulation tissue. B. Small intestine, biopsy at 18 cm: - Active chronic enteritis, moderate to severe, with ulceration. C. Colon, rectal cuff, biopsy: - Anorectal junction with active inflammation, mild architectural distortion, and ulceration. - Small intestinal mucosa with moderate active chronic enteritis. 4:25 PM [facility] S DESCRIPTION Three containers are received labeled Kris Spence . Received in the first container additionally [...] submitted entirely labeled C1. KA 4:25 PM [facility] MICROSCOPIC DESCRIPTION The slides are labeled [id number] and Kris Spence. The small intestine biopsy [...] infiltrative process. A CMV immunostain is negative. 4 4:25 PM [facility] OPERATIVE PROCEDURE 1: POUCHOSCOPY 4 4:25 PM [facility] CLINICAL INFORMATION Crohn's disease of colon with other complication [K50.118] K50.118-Crohn's disease of colon with other complication 4 4:25 PM MASON LINER [facility] COMMENT Special stain, immunohistochemical, and/or in situ hybridization results are interpreted with controls that demonstrate appropriate staining reactions. Note on use of immunohistochemistry reagents and in situ hybridization probes: These tests were developed and their performance characteristics determined by [facility], Department of Laboratory Medicine. It has not [...] part or completely in the following laboratories: [facility], CLIA #[id number] [address] [place] [address] [facility], CLIA #[id number] [address] [place] [address] [facility], CLIA #[id number] [address] [place] [address] This report was created with the [employer] Muse voice-activated dictation system. Inherent to this system is the possibility of syntax, grammar, punctuation and other errors that could impact the interpretation of the report. If there are interpretative questions about aspects of this report, please contact the performing pathologist. 4:25 PM MASON LINER [facility] Tissue (Small Intestine) Collection / Unknown 01/02/2024 11:59 AM MASON LINER 01/03/2024 7:51 AM MASON LINER Tissue specimen (specimen) (Small Intestine) Collection / Unknown 01/02/2024 12:05 PM MASON LINER 01/03/2024 7:51 AM MASON LINER Tissue specimen (specimen) ENTIRE RECTUM / Unknown 01/02/2024 12:06 PM MASON LINER 01/03/2024 7:51 AM MASON LINER Prabhjot Ryder MD PATHOLOGY/CYTOLOGY O RDERABLES [id number] [address] [place] [place] [address] documented in this encounter Visit Diagnoses Diagnosis Crohn's disease of colon with other complication Crohn's disease of colon with other complication documented in this encounter Care Teams Accounts Receivable Supervisor Relationship Specialty Start Date End Date Mike Mitchell MD [address] [place] [address] PCP - General Family Practice 09/28/22 documented as of this encounter
--- OUTSIDE RECORDS SUMMARY | 2024-01-30 08:31 | XMS_ITS | Encounter Summary ---
Author Organization [facility] Address [address] [place] [address] Care Team Providers Care Sanitation Worker Cleaning Machinery Name Role Phone Mike Mitchell MD Primary Care Provider [phone] Reason for Visit * Outpatient Services (Routine) - Authorized Specialty Diagnoses / Procedures Referred By Contact Referred To Contact Hematology and Oncology Diagnoses Crohn's disease of colon with other complication Procedures INFUSION THERAPY OK INJECTION, INFLECTRA OK METHYLPREDNISOLONE INJECTION [place] DIPHENHYDRAMINE HCL INJECTIO Inflectra, SoluMedrol, Benadryl Prabhjot Ryder MD [address] [place] [address] [facility] [address] [facility] [address] [place] [address] Referral ID Status Reason Start Date Expiration Date V isits Requested Visits Authorized [id number] Authorized 04/12/2023 05/03/2024 12 12 Encounter Details Date Type Department Care Team (Latest Contact Info) Description 12/08/2023 10:43 AM CDT - 12/08/2023 11:59 PM CDT Hospital Encounter [facility] [address] [facility] [address] [place] [address] Prabhjot Ryder MD [address] [place] [address] Infusion 6, Novelty Discharge Disposition: Home or Self Care Social History Tobacco Use Types Packs/Day Years Used Date Smoking Tobacco: Never Alcohol Use Standard Drinks/Week Comments Yes 0 (1 standard drink = 0.6 oz pur e alcohol) socially Feeling Safe Answer Date Recorded Are you in a relationship wi th someone who hurts you emotionally and/or physically? No 06/06/2023 Sex and Gender Information Value Date Recorded Sex Assigned at Not on file Gender Identity Not on file Sexual Orientation Not on file documented as of this encounter Last Filed Vital Signs Vital Sign Reading Time Taken Comments Blood Pressure 155/86 12/08/2023 10:44 AM CDT Pulse 87 12/08/2023 10:44 AM CDT Temperature 37 ??C (98.6 ??F) 12/08/2023 10:44 AM CDT Respiratory Rate 16 12/08/2023 10:44 AM CDT Oxygen Saturation - - Inhaled Oxygen Concentration - - Weight 116.2 kg (256 lb 4 oz) 12/08/2023 10:56 A M CDT Height - - Body Mass Index 34.75 06/06/2023 7:41 AM CDT documented in this encounter Medications [...] as of this encounter Progress Notes * Isela Ortega RN - 12/08/2023 2:45 PM CDT Kris Spence admitted to [facility] for infusion. Denies questions about medication/side effects as well as active infection. TB test negative within the last 12 months. Inflectra titrated per protocol and pt tolerated without difficulty/reaction. Pt instructed to notify physician orgo to ED if there are any changes in their condition. Verbalized understanding. Discharged home. Next appointment scheduled for 01/12/24. documented in this encounter Plan of Treatment Upcoming Encounters Date Type Department Care Team (Late st Contact Info) Description 02/09/2024 11:00 AM STRAW HAT PLUNGER OPERATOR Appointment [address] [address] Prabhjot Ryder MD [address] [facility] [facility] [address] [place] [address] Infusion Misti Cobos 03/27/2024 10:20 AM STRAW HAT PLUNGER OPERATOR Office Visit [facility] Gastroenterology [address] [facility] [address] [place] [address] Prabhjot Ryder MD [address] [facility] [address] [place] [address] documented as of this encounter Visit Diagnoses Not on filedocumented in this encounter Administered Medications Inactive Administered Medications - up to 3 most recent administrations Medication Order MAR Action Action Date Dose Rate Site acetaminophen (TYLENOL) tablet 975 mg 975 mg (rounded from 1,000 mg), Oral, ONE TIME ONLY, 1 dose, On Roxy 12/08/23 at 1100, Routine Given 12/08/2023 10:57 AM CDT 975 mg inFLIXimab-dyyb (INFLECTRA) 1,100 mg in sodium chloride 0.9% 500 mL IVPB 1,100 mg, IV, ONE TIME ONLY, 1 dose, On Roxy 12/08/23 at 1100, Routine Restarted 12/08/2023 1:46 PM CDT 500 mL/hr Rate Change 12/08/2023 1:02 PM CDT 500 mL/hr Rate Change 12/08/2023 12:31 PM CDT 300 mL/hr loratadine (CLARITIN) tablet 10 mg 10 mg, Oral, DAILY, First dose on Roxy 12/08/23 at 1100, Until Discontinued, Routine Given 12/08/2023 10:57 AM CDT 10 mg sodium chloride 0.9% infusion IV, at 30-999 mL/hr, CONTINUOUS, Starting on Roxy 12/08/23 at 1100, Until Tue12/09/23 at 0258, Routine Rate Change 12/08/2023 1:46 PM CDT 301 mL /hr Rate Change 12/08/2023 1:42 PM CDT 500 mL/hr New Bag 12/08/2023 10:57 AM CDT 30 mL/hr documented in this encounter Care Teams Sanitation Worker Cleaning Machinery Relationship Specialty Start Date End Date Mike Mitchell MD [address] [place] [id number] PCP - General Family Practice 09/28/22 documented as of this encounter
--- OUTSIDE RECORDS SUMMARY | 2024-01-30 08:31 | XMS_ITS | Encounter Summary ---
Author Organization [facility] Address [address] [place] [address] Care Team Providers Care Electroplater Name Role Phone Mike Mitchell MD Primary Care Provider [phone] [phone] Encounter Details Date Type Department Care Team (Late Contact Info) Description 12/06/2023 Orders Only [facility] [address] [place] [address] Prabhjot Ryder MD [address] [facility] [facility] [address] [place] [address] Crohn's disease of large intestine with other complication (Primary Dx) Social History [...] st Contact Info) Description 02/09/2024 11:00 AM COPY HOLDER Appointment [address] [address] Prabhjot Ryder MD [address] [facility] [facility] [address] [place] [address] Infusion 7Misti 03/27/2024 10:20 AM COPY HOLDER Office Visit [facility] Gastroenterology [facility] [address] [facility] [address] [place] [address] Prabhjot Ryder MD [address] [facility] [address] [place] [address] documented as of this encounter Visit Diagnoses Diagnosis Crohn's disease of large intestine with other complication- Primary documented in this encounter Care Teams Electroplater Relationship Specialty Start Date End Date Mike Mitchell MD [address] [place] [id number] PCP - General Family Practice 09/28/22 documented as of this encounter
--- OUTSIDE RECORDS SUMMARY | 2024-01-30 08:31 | XMS_ITS | Encounter Summary ---
Author Organization [facility] Address [address] [place] [address] Care Team Providers Care Bee Producer Name Role Phone Mike Mitchell MD Primary Care Provider [phone] [phone] Encounter Details Date Type Department Care Team (Late Contact Info) Description 12/06/2023 Orders Only [facility] [address] [place] [address] Prabhjot Ryder MD [address] [facility] [address] [place] [address] Social History Tobacco Use Types [...] (Late Contact Info) Description 02/09/2024 11:00 AM ER PHYSICIAN Appointment [address] [address] Prabhjot Ryder MD [address] [facility] [address] [place] [address] Misti Tapia 03/27/2024 10:20 AM ER PHYSICIAN Office Visit [facility] Gastroenterology [facility] [address] [facility] [address] [place] [address] Prabhjot Ryder MD [address] [place] [address] documented as of this encounter Visit Diagnoses Not on filedocumented in this encounter Care Teams Bee Producer Relationship Specialty Start Date End Date Mike Mitchell MD [address] [place] [address] PCP - General Family Practice 09/28/22 documented as of this encounter
--- OUTSIDE RECORDS SUMMARY | 2024-01-30 08:31 | XMS_ITS | Encounter Summary ---
Author Organization [facility] Address [address] [place] [address] Care Team Providers Care Automotive Engineering Teacher Name Role Phone Mike Mitchell MD Primary Care Provider [phone] [phone] Encounter Details Date Type Department Care Team (Latest Contact Info) Description 11/23/2023 Orders Only [facility] Gastroenterology [facility] [address] [facility] [address] [place] [address] Justyna Sorto Crohn's disease of colon with other complication Social History Tobacco Use Types Packs/Day Years [...] st Contact Info) Description 02/09/2024 11:00 AM CHIEF COOK Appointment [address] [place] [phone] Prabhjot Ryder MD [address] [facility] [address] [place] [address] Misti Tapia 03/27/2024 10:20 AM CHIEF COOK Office Visit [facility] Gastroenterology [facility] [address] [facility] [address] [place] [address] Prabhjot Ryder MD [address] [facility] [address] [place] [address] documented as of this encounter Procedures Procedure Name Priority Date/Time Associated Diagnosis Comments CBC WITH DIFFERENTIAL Routine 11/23/2023 2:04 PM CDT Crohn's disease of colon with other complication COMPREHENSIVE METABOLIC PANEL Routine 11/23/2023 2:04 PM CDT Crohn's disease of colon with other complication documented in this encounter Results * CBC WITH DIFFERENTIAL (11/23/2023 2:04 PM CDT) Blood 11/23/2023 2:04 PM CDT Prabhjot Ryder MD HEMATOLOGY ORDERABLE S Performing Organization Address [facility] [address]/[facility] Co de Phone Number [facility] [phone] * COMPREHENSIVE METABOLIC PANEL (11/23/2023 2:04 PM CDT) Blood 11/23/2023 2:04 PM CDT Prabhjot Ryder MD CHEMISTRY ORDERABLES Performing Organization Address [facility] [address]/ZIP Co de Phone Number [facility] [phone] documented in this encounter Visit Diagnoses Diagnosis Crohn's disease of colon with other complication documented in this encounter Care Teams Automotive Engineering Teacher Relationship Specialty Start Date End Date Mike Mitchell MD [address] [place] [address] PCP - General Family Practice 09/28/22 documented as of this encounter
--- OUTSIDE RECORDS SUMMARY | 2024-01-30 08:31 | XMS_ITS | Encounter Summary ---
Author Organization [facility] Address [address] [place] [address] Care Team Providers Care Associate Professor Of Biology Name Role Phone Mike Mitchell MD Primary Care Provider [phone] [phone] Reason for Visit * Reason Comments Med Refill Encounter Details Date Type Department Care Team (Late Contact Info) Description 11/07/2023 Refill [facility] Gastroenterology [facility] [address] [facility] [address] [place] [address] Prabhjot Ryder MD [address] [facility] [address] [place] [address] Proctitis Social History Tobacco Use Types Packs/Day Years [...] on file documented as of this encounter Miscellaneous Notes * Telephone Encounter - Brinda Monson - 11/07/2023 2:25 PM CDT OV 04/26/23, ROV 11/08/23. Please review, sign, and send. Ty DM documented in this encounter Plan of Treatment Upcoming Encounters Date Type Department Care Team (Late Contact Info) Description 02/09/2024 11:00 AM ORE CRUSHING DUST COLLECTOR Appointment [address] [place] [address] Prabhjot Ryder MD [address] [facility] [address] [place] [address] Misti Tapia 03/27/2024 10:20 AM ORE CRUSHING DUST COLLECTOR Office Visit [facility] Gastroenterology [facility] [address] [facility] [address] [place] [address] Prabhjot Ryder MD [address] [facility] [address] [place] [address] documented as of this encounter Visit Diagnoses Diagnosis Proctitis Other specified disorder of rectum and anus documented in this encounter Care Teams Associate Professor Of Biology Relationship Specialty Start Date End Date Mike Mitchell MD [address] [place] [address] PCP - General Family Practice 09/28/22 documented as of this encounter
--- OUTSIDE RECORDS SUMMARY | 2024-01-30 08:31 | XMS_ITS | Encounter Summary ---
Author Organization [facility] Address [address] [place] [address] Care Team Providers Care Chip Mucker Name Role Phone Mike Mitchell MD Primary Care Provider [phone] [phone] Reason for Visit * Outpatient Services (Routine) - Authorized Specialty Diagnoses / Procedures Referred By Contact Referred To Contact Hematology and Oncology Diagnoses Crohn's disease of colon with other complication Procedures INFUSION THERAPY AZ INJECTION, INFLECTRA AZ METHYLPREDNISOLONE INJECTION [place] DIPHENHYDRAMINE HCL INJECTIO Inflectra, SoluMedrol, Benadryl Prabhjot Ryder MD [address] [place] [address] [facility] [address] [facility] [address] [place] [address] Referral ID Status Reason Start Date Expiration Date V isits Requested Visits Authorized [id number] Authorized 04/12/2023 05/03/2024 12 12 Encounter Details Date Type Department Care Team (Latest Contact Info) Description 11/10/2023 10:35 AM CDT - 11/10/2023 11:59 PM CDT Hospital Encounter [facility] [address] [facility] [address] [place] [address] Prabhjot Ryder MD [address] [place] [address] Infusion 9, [place] Discharge Disposition: Home or Self Care Social [...] Sign Reading Time Taken Comments Blood Pressure 136/78 11/10/2023 10:45 AM CDT Pulse 68 11/10/2023 10:45 AM CDT Temperature 36.7 ??C (98.1 ??F) 11/10/2023 10:39 AM C DT Respiratory Rate 16 11/10/2023 10:39 AM CDT Oxygen Saturation - - Inhaled Oxygen Concentration - - Weight 115.1 kg (253 lb 12 oz) 11/10/2023 10:37 AM CDT Height - - Body Mass Index 34.41 06/06/2023 7:41 AM CDT documented in this [...] as of this encounter Progress Notes * Bridgette Grant RN - 11/10/2023 11:00 AM CDT Kris Spence admitted to [facility] for infusion. Denies questions about medication/side effects as well as active infection. TB test negative within the last 12 months. Inflectra titrated per protocol and pt tolerated without difficulty/reaction. Pt instructed to notify physician orgo to ED if there are any changes in their condition. Verbalized understanding. Discharged home. Pt is scheduled for next appt on 12/08/23. documented in this encounter Plan of Treatment Upcoming Encounters Date Type Department Care Team (Late st Contact Info) Description 02/09/2024 11:00 AM SENIOR MANAGER QUALITY ASSURANCE Appointment [facility] [address] [place] [address] Prabhjot Ryder MD [address] [facility] [address] [place] [address] Infusion 7Misti 03/27/2024 10:20 AM SENIOR MANAGER QUALITY ASSURANCE Office Visit [facility] Gastroenterology [place] [address] [facility] [facility] [address] [place] [address] Prabhjot Ryder MD [address] [facility] [address] [place] [address] documented as of this encounter Visit Diagnoses Not on filedocumented in this encounter Administered Medications Inactive Administered Medications - up to 3 most recent administrations Medication Order MAR Action Action Date Dose Rate Site acetaminophen (TYLENOL) tablet 975 mg 975 mg (rounded from 1,000 mg), Oral, ONE TIME ONLY, 1 dose, On Roxy 11/10/23 at 1045, Routine Given 11/10/2023 10:43 AM CDT 975 mg inFLIXimab-dyyb (INFLECTRA) 1,100 mg in sodium chloride 0.9% 500 mL IVPB 1,100 mg, IV, ONE TIME ONLY, 1 dose, On Roxy 11/10/23 at 1045, Routine Rate Verify 11/10/2023 1:37 PM CDT 500 mL/hr Rate Verify 11/10/2023 1:03 PM CDT 500 mL/hr Rate Change 11/10/2023 1:03 PM CDT 500 mL/hr loratadine (CLARITIN) tablet 10 mg 10 mg, Oral, DAILY, First dose on Roxy 11/10/23 at 1045, Until Discontinued, Routine Given 11/10/2023 10:43 AM CDT 10 mg sodium chloride 0.9% infusion IV, at 30-999 mL/hr, CONTINUOUS, Starting on Roxy 11/10/23 at 1045, Until Tue11/11/23 at 0256, Routine Rate Change 11/10/2023 1:45 PM CDT 300 mL /hr New Bag 11/10/2023 10:53 AM CDT 30 mL 30 mL/hr documented in this encounter Care Teams Chip Mucker Relationship Specialty Start Date End Date Mike Mitchell MD [address] [place] [address] PCP - General Family Practice 09/28/22 documented as of this encounter
--- OUTSIDE RECORDS SUMMARY | 2024-01-30 08:31 | XMS_ITS | Encounter Summary ---
Author Organization [facility] Address [address] [place] [address] Care Team Providers Care Sales Contractor Name Role Phone Mike Mitchell MD Primary Care Provider [phone] [phone] Reason for Referral * Eval and Treat (Routine) - Authorized Specialty Diagnoses / Procedures Referred By Roberto moura Referred To Contact Gastroenterology Diagnoses Crohn's disease of colon with other complication Procedures UT OFFICE/OUTPATIENT ESTABLISHED MOD MDM 30 MIN UT OFFICE/OUTPATIENT NEW MODERATE MDM 45 MINUTES Prabhjot Ryder MD [address] [facility] [facility] [address] [place] [address] Prabhjot Ryder MD [address] [facility] [address] [place] [address] Referral ID Status Reason Start Date Expiration Date V isits Requested Visits Authorized [id number] Authorized 11/08/2023 11/08/2024 2 2 Reason for Visit * Reason Comments Follow Up 6m Encounter Details Date Type Department Care Team (Latest Contact Info) Description 11/08/2023 9:20 AM CDT Office Visit [facility] Gastroenterology [facility] [address] [facility] [address] [place] [address] Prabhjot Ryder MD [address] [facility] [facility] [address] [place] [address] Crohn's disease of colon with [...] Sign Reading Time Taken Comments Blood Pressure 129/78 11/08/2023 9:23 AM CDT Pulse 68 11/08/2023 9:23 AM CDT Temperature - - Respiratory Rate - - Oxygen Saturation - - Inhaled Oxygen Concentration - - Weight 115.2 kg (254 lb) 11/08/2023 9:23 AM CDT Height - - Body Mass Index 34.45 06/06/2023 7:41 AM CDT documented in this encounter Progress Notes * Prabhjot Ryder MD - 11/08/2023 9:20 AM CDT Date of Visit: 11/08/2023 Date of : 1960 CSN: [id number] PCP: Mkie Mitchell MD History of Present Illness: Kris Spence is a pleasant 63 y.o. male who presented initially for Crohn's disease. Initially diagnosed in 1991 with ulcerative colitis and did not respond to therapy at that time. Underwent several therapies, but does not know the names of these. And ultimately in 2002, underwent colectomy with initial ostomy, then J-pouch creation. It is unclear how many years he spent on these medications, but he has been on Humira (could not get a blood level), Stelara (not responding), Entyvio, and most recently since early 2020, infliximab.He was seen at [facility] on 08/07/2020, and noted to have symptomatic improvement while being on the infliximab initially. He had a pouchoscopy 11/14/2020 with a few ulcers in the inferior limb, as well aspseudopolyps. 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 His Remicade level at that time was 1.4 with no antibody, so he was increased to 10 mg/kgfor his dose on 03/02/2021. His remicade level was 4.4 in early 2021, and hence his frequency was increased from q8 to q6 weeksin 07/2021. As a follow-up, he underwent a pouchoscopy on 05/31/2022, which found ulcers at the pouchinlet, as well as a few erosions in the a ferret limb with relative narrowing, but no specimens were collected. He was to follow-up with Dr. Moreno in clinic at [facility], however prior to his appointment with her, she announced that she was departing from that institution. Therefore, he was tasked with finding a new physician. Current regimen: infliximab 10mg/kg every 6 weeks -> q4 weeks 10/2022 He was believed to have some extraintestinal components of his IBD, mostly in his joints, and was trialed on sulfasalazine 2 tablets 3 times daily. He is not sure if these have improved his symptoms.Does not note any mouth ulcers or skin rashes As for his bowel movements, he has approximately 8 to 10/day, unless he knows he is going to be outdoing something. Last seen for pouchoscopy/2023, which timeSignificant rectal cuff ulceration and proctitis was found. This was positive on biopsy as well. Given the patient has been on infliximab 10 mg/kg every 4 weeks, we had added mesalamine suppositories as well to see if perhaps this would help. Interval Hx: When first started suppositories, felt a need to go. 3 weeks ago, took imodium 2-3/day, then next morning had straining, with mild pain, thought he was getting a hemorrhoid. Used Prep H. 6 bm/day. Past Medical History: Diagnosis Date Crohn's disease H/O repair of right rotator cuff History of colostomy reversal History of kidney stones Liver hemangioma Peptic ulcer 10/26/2022 Current Outpatient Medications Medication Sig Dispense Refill mesalamine ([place]) 1,000 [...] tablet Take 100 mcg by mouth daily. No current facility-administered medications for this visit. Allergies Allergen Reactions Azathioprine Other (See Comments) Caused pancreatitis Past Surgical History: Procedure Laterality Date HX COLONOSCOPY HX COLOSTOMY HX HERNIA REPAIR HX ROTATOR CUFF REPAIR [facility] EVAL INTSTINAL POUCH W/BX SINGLE/MULTIPLE N/A 06/06/2023 POUCHOSCOPY performed by Prabhjot yRder MD at [facility] Family History Problem Relation Name Age of Onset Colon Cancer Neg Hx Social History Tobacco Use Smoking status: Never Smokeless tobacco: Not on file Substance Use Topics Alcohol use: Yes Comment: socially Review of Systems Denies other gastrointestinal or constitutional symptoms. Physical Exam: There were no vitals taken for this visit. Constitutional: Appears well-developed and well-nourished. No acute distress. Eyes: No scleral icterus. HEENT: Normocephalic and atraumatic. Neck without abnormality. Cardiovascular: Regular rate and rhythm Lungs: Breathing comfortably, no wheezing Abdomen: Soft, non-tender, non-distended, no palpable masses. No rebound or guarding. No hepatosplenomegaly. Musculoskeletal: No lower extremity edema. Skin: No obvious rashes or lesions on visualized skin Neuro: Alert, oriented to person, place and time. Cooperative, no gross focal findings on exam Psychiatric: Normal mood and affect. Behavior is normal. Data Review Lab Review Lab Results Component Value Date WBC 6.0 05/26/2023 HGB 16.5 05/26/2023 HCT 47.7 05/26/2023 PLT 219 05/26/2023 MCV 90.3 05/26/2023 Lab Results Component Value Date NA 139 05/26/2023 K 3.6 05/26/2023 CL 101 05/26/2023 CO2 27 05/26/2023 CA 9.1 05/26/2023 BUN 13 05/26/2023 CREAT 1.03 05/26/2023 GLUCOSE 162 (H) 05/26/2023 TOTALPROTEIN 7.3 05/26/2023 ALBUMIN 4.6 05/26/2023 BILITOTAL 0.4 05/26/2023 ALKPHOS 55 05/26/2023 AST 34 05/26/2023 ALT 36 05/26/2023 ANIONGAP 11 05/26/2023 BCRATIO SEE NOTE: 11/26/2022 Imaging Review DEXA 02/2023 Normal BMD. Endoscopy Review Pouchoscopy 05/31/2022 ([facility]) Impression: - Preparation of the pouch was fair. - The rectal cuff is normal. - The ileoanal pouch is normal. - A few ulcers at the pouch inlet. - A few erosions in the afferent limb with relative narrowing at the loop ileostomy site. - The afferent limb is normal proximal and distal to the previous loop ileostomy site. - No specimens collected. Pouchoscopy 05/2023 Impression: - Inflammation was found in the pre-pouch ileum secondary to Crohn's disease with ileitis. Biopsied. - One afferent limb polyp, removed with a hot snare. Resected and retrieved. - A few ulcers at the pouch inlet. - Rectal cuff with congestion, edema, erythema and ulceration seen. Biopsied. - Ileal pouch with healthy appearing mucosa and an intact appearance seen. Component FINAL DIAGNOSIS A. Small intestine, biopsy: - Small bowel mucosa with moderate active inflammation B. Ileum, polypectomy: - Inflammatory pseudopolyp - Negative for dysplasia C. Rectal cuff, ulcer, biopsy: - Severe chronic active proctitis ASSESSMENT: Kris Spence is a pleasant 63 y.o. male who presents in return for: #Crohn's of the pouch, active #s/p IPAA J pouch #Suboptimal infliximab level #Extraintestinal manifestations of Crohn's #Multiple incisional hernia repairs 63-year-old presents in follow-up. Doing quite well, is in what he considers to be clinical remission after addition of suppositories. His bowel movements per day have been down by about 4/day which is good for him. No blood in stool. Continues to use Imodium as needed. Will plan for pouchoscopy given that he has been on suppositories for 6 months, and his infliximab levels have been previously normal earlier this year, 14. No antibodies. If we do not have improvement in endoscopic evaluation from the rectal cuff perspective with previously severe inflammation, we may need to consider movement towards either Rinvoq or Skyrizi as an alternative medication. Recall he has been on Stelara in the past as well as Entyvio, and it is unclear why that he was moved off of these. He was only on Entyvio for 1 to 2 infusions, and then was placed back on infliximab. We discussed continuation of his suppositories for now. He is due for some lab work. I will see himback in 6 months. PLAN: -Pouchoscopy schedule now that on mesalamine suppositories -Quantiferon due 04/2024 -CBC/CMP due now -Vitamin D adequate -Declines COVID and pneumococcal vaccinations -Yearly skin exam -DEXA normal (02/2023) -RTC 6 months Prabhjot Ryder MD [facility] documented in this encounter Miscellaneous Notes * Patient Instructions - Prabhjot Ryder MD - 11/08/2023 9:35 AM CDT It was a pleasure meeting with you today in the [facility]. I hope we provided you with excellent care today at [facility]. During our visit we discussed the following: Plan for pouchoscopy, to be scheduled anytime. May consider change to other medications (Skyrizi vs. Rinvoq) in future. Lab work when possible (blood work). Return in 6 months. Please call the clinic with any questions or concerns. [phone]. Prabhjot Ryder M.D. Department of Gastroenterology [facility] documented in this encounter Plan of Treatment Upcoming Encounters Date Type Department Care Team (Late st Contact Info) Description 02/09/2024 11:[address] Appointment [address] [place] [address] Prabhjot Ryder MD [address] [facility] [address] [place] [address] Infusion Misti Cobos 03/27/2024 10:[address]ISS[address] Office Visit [facility] Gastroenterology [facility] [address] [facility] [address] [place] [address] Prabhjot Ryder MD [address] [facility] [address] [place] [address] Scheduled Referrals Name Type Priority Associated Diagnoses Order Schedule AMB REFERRAL TO GASTROENTEROLOGY Outpatient Referral Routine Crohn's disease of colon with other complication Ordered: 11/08/2023 documented as of this encounter Results * CBC WITH DIFFERENTIAL (11/23/2023 2:04 PM CDT) Blood 11/23/2023 2:04 PM CDT Prabhjot Ryder MD HEMATOLOGY ORDERABLE S Performing Organization Address City/[facility]/ZIP Co de Phone Number [facility] [phone] * COMPREHENSIVE METABOLIC PANEL (11/23/2023 2:04 PM CDT) Blood 11/23/2023 2:04 PM CDT Prabhjot Ryder MD CHEMISTRY ORDERABLES Performing Organization Address City/[facility]/ZIP Co de Phone Number [facility] [phone] documented in this encounter Visit Diagnoses Diagnosis Crohn's disease of colon with other complication- Primary documented in this encounter Care Teams Sales Contractor Relationship Specialty Start Date End Date Mike Mitchell MD [address] [place] [address] PCP - General Family Practice 09/28/22 documented as of this encounter
--- OUTSIDE RECORDS SUMMARY | 2024-01-30 08:31 | XMS_ITS | Encounter Summary ---
Author Organization [facility] Address [address] [place] [address] Care Team Providers Care Straight Knife Cutter Machine Name Role Phone Mike Mitchell MD Primary Care Provider [phone] [phone] Reason for Visit * Auth/Cert (Routine) Specialty Diagnoses / Procedures Referred By Roberto moura Referred To Contact Perioperative Diagnoses Crohn's disease of colon with other complication Procedures FL NDSC EVAL INTSTINAL POUCH DX W/COLLJ SPEC SPX POUCHOSCOPY Prabhjot Ryder MD [address] [place] [address] [facility] [address] [place] [address] Referral ID Status Reason Start Date Expiration Date Visits Re quested Visits Authorized [id number] 1 1 Encounter Details Date Type Department Care Team (Latest Contact Info) Description 01/02/2024 9:50 AM CHILD AND FAMILY THERAPIST - 01/02/2024 12:37 PM [facility] Hospital Encounter [facility] Endoscopy [facility] [address] [place] [address] Prabhjot Ryder MD [address] [place] [address] Crohn's disease of colon with other complication Discharge Disposition: Home or Self Care Social [...] Sign Reading Time Taken Comments Blood Pressure 136/82 01/02/2024 12:26 PM CHILD AND FAMILY THERAPIST Pulse 78 01/02/2024 12:26 PM CHILD AND FAMILY THERAPIST Temperature 37.5 ??C (99.5 ??F) 01/02/2024 1 2:12 PM CHILD AND FAMILY THERAPIST Respiratory Rate 18 01/02/2024 12:2 6 PM CHILD AND FAMILY THERAPIST Oxygen Saturation 94% 01/02/2024 12: 26 PM CHILD AND FAMILY THERAPIST Inhaled Oxygen Concentration - - Weight 116.7 kg (257 lb 3.2 oz) 024 10:04 AM CHILD AND FAMILY THERAPIST Height 182.9 cm (6') 12/12/2023 1:33 PM CHILD AND FAMILY THERAPIST Body Mass Index 34.88 12/12/2023 1:33 PM CHILD AND FAMILY THERAPIST documented in this encounter Discharge Instructions * Discharge Instructions* Prabhjot Ryder MD - 01/02/2024 12:04 PM CHILD AND FAMILY THERAPIST Instructions after Colonoscopy After a colonoscopy it [...] weeks, please call the office. Office Exchange: D AND FAMILY THERAPIST documented in this encounter Medications at Time [...] Ryder MD - 01/02/2024 11:48 AM CST [facility] Pre-Endoscopy History & Physical Date: 01/02/2024 Patient: Kris Powers Defauw / 63 y.o. / male : 1960 CSN: [id number] Planned procedure: Pouchoscopy Chief Complaint: crohns of [...] HX SURGICAL OTHER tummy tuck x 2 FL NDSC EVAL INTSTINAL POUCH W/BX SINGLE/MULTIPLE N/A 06/06/2023 POUCHOSCOPY performed by Prabhjot Ryder MD at [facility] Social History Tobacco Use Smoking Status Never Smokeless Tobacco Not on file Social History Substance and Sexual Activity Alcohol Use Yes Comment: socially Family History Problem Relation Name Age of Onset Colon Cancer Neg Hx Allergies Allergen Reactions Mercer Juice Hives and Itching Tomato Hives and [...] scheduled. Prabhjot Ryder M.D. Department of Gastroenterology [facility] D AND FAMILY THERAPIST documented in this encounter Procedure Notes * Prabhjot Ryder MD - 01/02/2024 12:13 PM CSTAssociated Order(s): POUCHOSCOPY REPORT [facility] Endoscopy Patient Name: Kris Spence Procedure [...] consider this failure of treatment. Will consider yrizi as next, and possible referral to IBD center. - I will call you to discuss pathology next week. Prabhjot Ryder MD 01/02/2024 12:13:13 PM This report has been signed electronically. Number of Addenda: [phone] [id number] D AND FAMILY THERAPIST * Abigail Ash RN - 12/12/2023 1:54 PM CST GI PROCEDURE NOTE from Nursing PAT call Patient: Kris Spence : 1960 Endoscopist: Surgeon(s): Prabhjot Ryder MD Upcoming Procedure: Procedure to be Performed: Procedure(s): POUCHOSCOPY Procedure Date/Time: 01/02/2024 at 1100 Diagnosis/Indication for procedure: Pre-Op Diagnosis Codes: * Crohn's disease of colon with other complication [K50.118] Location: [facility] Referring Physician: Mike Mitchell Patient's BMI: Body mass index is 34.58 kg/m??. Is patient a candidate for offsite location? yes Medications Type of prep given: Pt will do enemas until clear as he did last time Previous procedure's prep was good/adequate for exam: yes Instructions sent via: Email Anticoagulants: no Relevant prior procedure/pathology: Procedure: pouchoscopy Physician: Britni Date: 06/06/2023 Location: [facility] Last Pathology: FINAL DIAGNOSIS A. Small [...] HX SURGICAL OTHER tummy tuck x 2 FL NDSC EVAL INTSTINAL POUCH W/BX SINGLE/MULTIPLE N/A 06/06/2023 POUCHOSCOPY performed by Prabhjot Ryder MD at [facility] Past Medical History: Past Medical History: Diagnosis [...] tablet Take 100 mcg by mouth daily. D AND FAMILY THERAPIST documented in this encounter OR Notes * Misa-OP - Abigail Ash RN - 12/12/2023 1:54 PM CST Images from the original note were not included. STL IMELDA Routine Pre-Anesthesia Protocol for GI Lab Procedures [facility] Approved by: [facility]-Medical Executive Committee Approval Date: 03/24/2023 ORDERS ARE ENTERED ???PER PROTOCOL?? Enter the protocol in the patient???s electronic health record using Bioscalerase: .anestprotocolgilab Nursing Orders: Monitoring Obtain and record vital signs on admission to [facility] Continuous vital signs (Non-invasive blood pressure, pulse [...] appropriate, may confirm POC with: Nursing Only [id number] (this lab can be obtained at no cost to the patient when confirming a critical high or Critical low POC glucose. See hypoglycemia protocol for additional orders if needed: [facility] ANES Adult Perianesthesia HYPOglycemia Protocol Notify any [...] unable to obtain urine, may obtain serum [id number]) All patients with potential for childbearing (menarche [...] RN may change to NS at 10ml/hr D AND FAMILY THERAPIST documented in this encounter Plan of Treatment Upcoming Encounters Date Type Department Care Team (Late st Contact Info) Description 02/09/2024 11:00 AM CHILD AND FAMILY THERAPIST Appointment [facility] [address] [facility] [address] [place] [address] Prabhjot Ryder MD [address] [place] [address] [place] 03/27/2024 10:20 AM CHILD AND FAMILY THERAPIST Office Visit [facility] Gastroenterology [facility] [address] [place] [address] Prabhjot Ryder MD [address] [facility] [address] [place] [address] documented as of this encounter Procedures Procedure Name Priority Date/Time Associated Diagnosis Comments POUCHOSCOPY REPORT 01/02/2024 12:13 PM CHILD AND FAMILY THERAPIST PATHOLOGY Pathology 01/02/2024 11:59 AM CHILD AND FAMILY THERAPIST Crohn's disease of colon with other complication FL NDSC EVAL INTSTINAL POUCH DX W/COLLJ SPEC SPX 01/02/2024 11:00 AM CHILD AND FAMILY THERAPIST Crohn's disease of colon with other complication Case Notes 12/12/23-pt to do enemas until clear as he did last time, instructions emailed, PAT complete-ss documented in this encounter Results * POUCHOSCOPY REPORT (01/02/2024 12:13 PM CHILD AND FAMILY THERAPIST) Narrative Procedure Note Prabhjot Ryder MD - 01/02/2024 12:13 PM CST [facility] Endoscopy Patient Name: Kris Spence Procedure [...] signed electronically. Number of Addenda: 0 [address] [facility] [address] [address] Prabhjot Ryder MD GI PROCEDURE ORDERAB LES * PATHOLOGY (01/02/2024 11:59 AM CHILD AND FAMILY THERAPIST) CASE REPORT Surgical Pathology Report ? Case: [id number] ? Authorizing Provider: ??Prabhjot Ryder MD ?Collected: ? 01/02/2024 11:59 AM ? Ordering Location: ? [facility] Endoscopy ?? Received: ?01/03/2024 07:51 AM ? [facility] ? Pathologist: ? Remberto Mayfield, MD ? Specimens: ?? A) - Small Intestine, bx 35 cm ? B) - Small Intestine, bx 18cm ? C) - Rectum, bx cuff ? 4 4:25 PM [facility] FINAL DIAGNOSIS A. Small intestine, biopsy at 35 cm: - Polypoid fragment of acutely inflamed granulation tissue. B. Small intestine, biopsy at 18 cm: - Active chronic enteritis, moderate to severe, with ulceration. C. Colon, rectal cuff, biopsy: - Anorectal junction with active inflammation, mild architectural distortion, and ulceration. - Small intestinal mucosa with moderate active chronic enteritis. 4 4:25 PM [facility] S DESCRIPTION Three containers are received labeled [...] submitted entirely labeled C1. KA 4:25 PM [facility] MICROSCOPIC DESCRIPTION The slides are labeled [id number] and Kris Spence. The small intestine biopsy [...] CMV immunostain is negative. 4 4:25 PM [facility] OPERATIVE PROCEDURE 1: POUCHOSCOPY 4 4:25 PM [facility] CLINICAL INFORMATION Crohn's disease of colon with other complication [K50.118] K50.118-Crohn's disease of colon with other complication 4 4:25 PM [facility] COMMENT Special stain, immunohistochemical, and/or in situ hybridization results are interpreted with controls that demonstrate appropriate staining reactions. Note on use of immunohistochemistry reagents and in situ hybridization probes: These tests were developed and their performance characteristics determined by [facility], Department of Laboratory Medicine. It has [...] part or completely in the following laboratories: [facility], CLIA #[id number] [address] [place] [address] [facility], [place] #[id number] [address] [place] [address] [facility]/[place], [place] #[id number] [address] [place] [address] This report was created with the cashcloud voice-activated dictation system. Inherent to this system is the possibility of syntax, grammar, punctuation and other errors that could impact the interpretation of the report. If there are interpretative questions about aspects of this report, please contact the performing pathologist. 4 4:25 PM [facility] Tissue (Small Intestine) Collection / Unknown 01/02/2024 11:59 AM CHILD AND FAMILY THERAPIST 01/03/2024 7:51 AM CHILD AND FAMILY THERAPIST Tissue specimen (specimen) (Small Intestine) Collection / Unknown 01/02/2024 12:05 PM CHILD AND FAMILY THERAPIST 01/03/2024 7:51 AM CHILD AND FAMILY THERAPIST Tissue specimen (specimen) ENTIRE RECTUM / Unknown 01/02/2024 12:06 PM CHILD AND FAMILY THERAPIST 01/03/2024 7:51 AM CHILD AND FAMILY THERAPIST Prabhjot Ryder MD PATHOLOGY/CYTOLOGY O RDERABLES [facility]# [id number] [address] [facility] [place] [address] documented in this encounter Visit Diagnoses Diagnosis Crohn's disease of colon with other complication documented in this encounter Care Teams Straight Knife Cutter Machine Relationship Specialty Start Date End Date Mike Mitchell MD [address] [place] [address] PCP - General Family Practice 09/28/22 documented as of this encounter
--- OUTSIDE RECORDS SUMMARY | 2024-01-30 08:31 | XMS_ITS | Encounter Summary ---
Author Organization [facility] Address [address] [place] [address] Care Team Providers Care Production Supv Name Role Phone Mike Mitchell MD Primary Care Provider [phone] [phone] Reason for Visit * Reason Comments Lab Results Encounter Details Date Type Department Care Team (Late Contact Info) Description 12/09/2023 Abstract [facility] Gastroenterology [facility] [address] [facility] [address] [place] [address] Prabhjot Ryder MD [address] [facility] [address] [place] [address] Social History Tobacco Use Types [...] as of this encounter Progress Notes * Howard Olivas RMA - 12/09/2023 9:48 AM CDT Results faxed from [employer]. Results did not appear to interface into [employer]. Scanned into chart and routed to ordering provider. PABLO Lawrence Advanced Studio Technician Video Operator [facility] [address] documented in this encounter Plan of Treatment Upcoming Encounters Date Type Department Care Team (Late Contact Info) Description 02/09/2024 11:00 AM PROSTHETIST Appointment [address] [place] [address] Prabhjot Ryder MD [address] [facility] [address] [place] [address] Infusion [facility]i [facility] 03/27/2024 10:20 AM PROSTHETIST Office Visit [facility] Gastroenterology [address] [facility] [address] [place] [address] Prabhjot Ryder MD [address] [facility] [address] [place] [address] documented as of this encounter Visit Diagnoses Not on filedocumented in this encounter Care Teams Production Supv Relationship Specialty Start Date End Date Mike Mitchell MD [address] [place] [address] PCP - General Family Practice 09/28/22 documented as of this encounter
--- OUTSIDE RECORDS SUMMARY | 2024-01-30 08:32 | XMS_ITS | Encounter Summary ---
Author Organization [facility] Address [address] [place] [address] Care Team Providers Care Supervisor Pumping Name Role Phone Mike Mitchell MD Primary Care Provider [phone] Encounter Details Date Type Department Care Team (Late st Contact Info) Description 09/29/2023 External Device Data STL ABSTRACTION Provider, Abstract NO ADDRESS ON FILE Social History Tobacco Use Types Packs/Day Years [...] st Contact Info) Description 02/09/2024 11:00 AM DIPPER AND DRIER Appointment [address] [address] Prabhjot Ryder MD [address] [facility] [address] [place] [address] Infusion [facility] 03/27/2024 10:20 AM DIPPER AND DRIER Office Visit [facility] Gastroenterology [facility] [address] [facility] [address] [place] [address] Prabhjot Ryder MD [address] [facility] [address] [place] [address] documented as of this encounter Visit Diagnoses Not on filedocumented in this encounter Care Teams Supervisor Pumping Relationship Specialty Start Date End Date Mike Mitchell MD [address] [place] [address] PCP - General Family Practice 09/28/22 documented as of this encounter
--- OUTSIDE RECORDS SUMMARY | 2024-01-30 08:32 | XMS_ITS | Encounter Summary ---
Author Organization [facility] Address [address] [place] [address] Care Team Providers Care Credit Risk Management Director Name Role Phone Mike Mitchell MD Primary Care Provider [phone] [phone] Encounter Details Date Type Department Care Team [...] Contact Info) Description 02/09/2024 11:00 AM SENIOR ACCOUNTANT CPA Appointment [address] [address] Prabhjot Ryder MD [address] [facility] [address] [place] [address] Infusion [facility] 03/27/2024 10:20 AM SENIOR ACCOUNTANT CPA Office Visit [facility] Gastroenterology [facility] [address] [facility] [address] [place] [address] Prabhjot Ryder MD [address] [facility] [address] [place] [address] documented as of this encounter Visit Diagnoses Not on filedocumented in this encounter Care Teams Credit Risk Management Director Relationship Specialty Start Date End Date Mike Mitchell MD [address] [place] [address] PCP - General Family Practice 09/28/22 documented as of this encounter
--- OUTSIDE RECORDS SUMMARY | 2024-01-30 08:32 | XMS_ITS | Encounter Summary ---
Author Organization [facility] Address [address] [place] [address] Care Team Providers Care Manager Copy Name Role Phone Mike Mitchell MD Primary Care Provider [phone] [phone] Encounter Details Date Type Department Care Team (Late st Contact Info) Description 10/11/2023 External Device Data STL ABSTRACTION Provider, Abstract [...] st Contact Info) Description 02/09/2024 11:00 AM SHEET WRITER Appointment [address] [address] Prabhjot Ryder MD [address] [facility] [address] [place] [address] Infusion [facility] 03/27/2024 10:20 AM SHEET WRITER Office Visit [facility] Gastroenterology [facility] [address] [facility] [address] [place] [address] Prabhjot Ryder MD [address] [facility] [address] [place] [address] documented as of this encounter Visit Diagnoses Not on filedocumented in this encounter Care Teams Manager Copy Relationship Specialty Start Date End Date Mike Mitchell MD [address] [place] [address] PCP - General Family Practice 09/28/22 documented as of this encounter
--- OUTSIDE RECORDS SUMMARY | 2024-01-30 08:32 | XMS_ITS | Encounter Summary ---
Author Organization [facility] Address [address] [place] [address] Care Team Providers Care Natural Gas Shothole Driller Name Role Phone Mike Mitchell MD Primary Care Provider [phone] [phone] Reason for Referral * Outpatient Services (Routine) - Authorized Specialty Diagnoses / Procedures Referred By Contact Referred To Contact Hematology and Oncology Diagnoses Crohn's disease of colon with other complication Procedures INFUSION THERAPY WV INJECTION, INFLECTRA WV METHYLPREDNISOLONE INJECTION W[place] DIPHENHYDRAMINE HCL INJECTIO Inflectra, SoluMedrol, Benadryl Prabhjot Rdyer MD [address] [facility] [address] [place] [address] [address] Referral ID Status Reason Start Date Expiration Date V isits Requested Visits Authorized [id number] Authorized 04/12/2023 05/03/2024 12 12 FICATION CLERK Encounter Details Date Type Department Care Team (Latest Contact Info) Description 04/12/2023 Orders Only [facility] Gastroenterology [facility] [address] [facility] [address] [place] [address] Prabhjot Ryder MD [address] [facility] [address] [place] [address] Crohn's disease of colon with [...] st Contact Info) Description 02/09/2024 11:00 AM VERIFICATION CLERK Appointment [facility] [address] [facility] [address] [place] [address] Prabhjot Ryder MD [address] [facility] [address] [place] [address] Infusion [facility] 03/27/2024 10:20 AM VERIFICATION CLERK Office Visit [facility] Gastroenterology [facility] [address] [facility] [address] [place] [address] Prabhjot Ryder MD [address] [facility] [address] [place] [address] documented as of this encounter Visit Diagnoses Diagnosis Crohn's disease of colon with other complication- Primary documented in this encounter Care Teams Natural Gas Shothole Driller Relationship Specialty Start Date End Date Mike Mitchell MD [address] [place] [address] PCP - General Family Practice 09/28/22 documented as of this encounter
--- OUTSIDE RECORDS SUMMARY | 2024-01-30 08:32 | XMS_ITS | Encounter Summary ---
Author Organization [facility] Address [address] [place] [address] Care Team Providers Care Negative Notcher Name Role Phone Mike Mitchell MD Primary Care Provider [phone] [phone] Reason for Visit * Outpatient Services (Routine) - Authorized Specialty Diagnoses / Procedures Referred By Contact Referred To Contact Hematology and Oncology Diagnoses Crohn's disease of colon with other complication Procedures INFUSION THERAPY WI INJECTION, INFLECTRA WI METHYLPREDNISOLONE INJECTION WI DIPHENHYDRAMINE HCL INJECTIO Inflectra, SoluMedrol, Benadryl Prabhjot Ryder MD [address] [place] [address] [facility] [address] [facility] [address] [place] [address] Referral ID Status Reason Start Date Expiration Date V isits Requested Visits Authorized [id number] Authorized 04/12/2023 05/03/2024 12 12 Encounter Details Date Type Department Care Team (Latest Contact Info) Description 05/26/2023 10:54 AM CDT - 05/26/2023 11:59 PM CDT Hospital Encounter [facility] [address] [facility] [address] [place] [address] Prabhjot Ryder MD [address] [place] [address] Infusion 1, [place] Discharge Disposition: Home or Self Care Social [...] on file documented as of this encounter Medications at Time of Discharge Medication Sig Dispensed Refills Start Date End Date amlodipine besylate (AMLODIPINE ORAL) Take by mouth. [...] tablet Take 100 mcg by mouth daily. sulfaSALAzine (AZULFIDINE) 500 mg tablet TAKE 2 TABLETS (1,000 MG) BY MOUTH 4 TIMES DAILY. 240 Tablet 2 02/17/2023 06/21/2023 sodium chloride 0.9% Parenteral Solution 250 mL with inFLIXimab 100 mg Recon Soln 10 mg Inject 10 mg by intravenous injection one time only. Every 6 wks 01/25/2024 documented as of this encounter Progress Notes * Vianney Hooks RN - 05/26/2023 11:00 AM CDT Kris Spence admitted to [facility] for infusion. Denies questions about medication/side effects after discussed. Inflectra given without difficulty. Pt instructed to notify physician orreport to ED if there are any changes in their condition. Verbalized understanding. Pt discharged home. documented in this encounter Plan of Treatment Upcoming Encounters Date Type Department Care Team (Late st Contact Info) Description 02/09/2024 11:00 AM CARBON GRINDER Appointment [address] [place] [address] Prabhjot Ryder MD [address] [facility] [address] [place] [address] Infusion 7, [place] 03/27/2024 10:20 AM CARBON GRINDER Office Visit [facility] Gastroenterology [facility] [address] [facility] [address] [place] [address] Prabhjot Ryder MD [address] [facility] [address] [place] [address] documented as of this encounter Procedures Procedure Name Priority Date/Time Associated Diagnosis Comments CBC WITH DIFFERENTIAL Stat 05/26/2023 11:07 AM CDT Crohn's disease of colon without complication Kidney stone Other acute pancreatitis, unspecified complication status Peptic ulcer COMPREHENSIVE METABOLIC PANEL Stat 05/26/2023 11:07 AM CDT Crohn's disease of colon without complication Kidney stone Other acute pancreatitis, unspecified complication status Peptic ulcer C-REACTIVE PROTEIN Routine 05/26/2023 11 :05 AM CDT Crohn's disease of colon without complication Kidney stone Other acute pancreatitis, unspecified complication status Peptic ulcer documented in this encounter Results * (ABNORMAL) COMPREHENSIVE METABOLIC PANEL (05/26/2023 11:07 AM CDT) SODIUM 139 136 - 145 mmol/L 05/26/2023 3:37 PM T [facility] POTASSIUM 3.6 3.5 - 5.0 mmol/L 05/26/2023 3:37 PM T [facility] CHLORIDE 101 98 - 107 mmol/L 05/26/2023 3:37 PM T [facility] CO2 27 22 - 29 mmol/L 05/26/2023 3:37 PM [facility] CALCIUM 9.1 8.6 - 10.2 mg/dL 05/26/2023 3:37 PM [facility] BUN 13 8 - 23 mg/dL 05/26/2023 3:37 PM [facility] CREATININE 1.03 0.67 - 1.17 mg/dL 05/26/2023 3:37 PM [facility] GLUCOSE 162(H) 74 - 99 mg/dL 05/26/2023 3:37 PM [facility] TOTAL PROTEIN 7.3 6.7 - 8.6 g/dL 05/26/2023 3:37 PM [facility] ALBUMIN 4.6 3.5 - 5.2 g/dL 05/26/2023 3:37 PM [facility] BILIRUBIN TOTAL 0.4 0.2 - 1.1 mg/dL 05/26/2023 3:37 PM [facility] ALKALINE PHOSPHATASE 55 40 - 129 U/L 05/26/2023 3:37 PM [facility] AST 34 <41 U/L 05/26/2023 3:37 PM [employer] ALT 36 <42 U/L 05/26/2023 3:37 PM [facility] GFR >60 >=60 mL/min/1.7 3 sq meter 05/26/2023 3:37 PM [facility] Comment:eGFR calculated with 2020 CKD-EPI equation. Vegetarian diet, extremely high or low muscle mass, and may affect results. Cystatin C with Glomerular Filtration Rate is a suitable alternative for these patients. ANION GAP 11 8 - 16 mmol/L 05/26/2023 3:37 PM [facility] Blood Venipuncture / Unknown 05/26/2023 11:07 AM CDT 05/26/2023 11:20 AM CDT [facility] - 05/26/2023 3:37 PM CDT Samples containing indocyanine green cause interferences on Total and/or Direct Bilirubin and must not be measured. Prabhjot Ryder MD CHEMISTRY ORDERABLES [facility] CLIA# [id number] [address] [place] [address] * CBC WITH DIFFERENTIAL (05/26/2023 11:07 AM CDT) WBC 6.0 4.0 - 9.8 K/uL 05/26/2023 11:24 AM T [facility] RBC 5.28 4.50 - 5.40 M/uL 05/26/2023 11:24 AM [facility] [place] HEMOGLOBIN 16.5 13.6 - 16.5 g/dL 05/26/2023 11:24 AM T [facility] [place] [facility] HEMATOCRIT 47.7 40.0 - 48.0 % 05/26/2023 11:24 AM [facility] [place] MCV 90.3 82.0 - 99.0 fL 05/26/2023 11:24 AM T [facility] [place] MCH 31.3 27.2 - 32.6 pg 05/26/2023 11:24 AM T [facility] [place] [facility] MCHC 34.6 31.5 - 35.5 g/dL 05/26/2023 11:24 AM T [facility] [place] RDW 12.6 11.5 - 14.5 % 05/26/2023 11:24 AM T [facility] [place] [facility] RDW-STDEV 41.5 37.1 - 48.7 fL 05/26/2023 11:24 AM CDT [facility] [place] PLATELETS 219 140 - 350 K/uL 05/26/2023 11:24 AM CDT [facility] [place] MPV 10.0 9.3 - 12.4 fL 05/26/2023 11:24 AM CDT [facility] [place] NEUTROPHILS 63 % 05/26/2023 11:24 AM CDT [facility] [place] LYMPHOCYTES 26 % 05/26/2023 11:24 AM CDT [facility] [place] MONOCYTES 10 % 05/26/2023 11:24 AM CDT [facility] [place] EOSINOPHILS 1 % 05/26/2023 11:24 AM CDT [facility] [place] BASOPHILS 0 % 05/26/2023 11:24 AM CDT [facility] IMMATURE GRANULOCYTES 0 % 05/26/2023 11:24 AM CDT [facility] [place] [facility] NEUTROPHIL ABSOLUTE 3.79 1.90 - 7.00 K/uL 05/26/2023 11:24 AM CDT [facility] [place] LYMPHOCYTE ABSOLUTE 1.54 0.70 - 4.50 K/uL 05/26/2023 11:24 AM CDT [facility] [place] MONOCYTE ABSOLUTE 0.59 0.10 - 1.30 K/uL 05/26/2023 11:24 AM CDT [facility] [place] EOSINOPHIL ABSOLUTE 0.06 0.00 - 0.70 K/uL 05/26/2023 11:24 AM CDT [facility] [place] BASOPHILS ABSOLUTE 0.02 0.00 - 0.20 K/uL 05/26/2023 11:24 AM CDT [facility] [place] [facility] IMMATURE GRANULOCYTES ABSOLUTE 0.02 0.00 - 0.03 K/uL 05/26/2023 11:24 AM CDT [facility] [place] Blood Venipuncture / Unknown 05/26/2023 11:07 AM CDT 05/26/2023 11:20 AM CDT Prabhjot Ryder MD HEMATOLOGY ORDERABLE S [facility] [place] CLIA#[id number] [address] [place] [address] * C-REACTIVE PROTEIN (05/26/2023 11:05 AM CDT) CRP <5.0 <8.0 mg/L [facility] Comment: Test Performed at: [facility] [address] [place], [place] ??[address] [facility] Blood 05/26/2023 11:0 5 AM CDT 05/26/2023 7:28 PM CDT Prabhjot Rydre MD CHEMISTRY ORDERABLES [facility] [phone] [facility] [address] [place] [address] documented in this encounter Visit Diagnoses Diagnosis Crohn's disease of colon without complication- Primary Kidney stone Calculus of kidney Other acute pancreatitis, unspecified complication status Peptic ulcer Peptic ulcer, unspecified site, unspecified as acute or chronic, without mention of hemorrhage, perforation, or obstruction documented in this encounter Administered Medications Inactive Administered Medications - up to 3 most recent administrations Medication Order MAR Action Action Date Dose Rate Site acetaminophen (TYLENOL) tablet 975 mg 975 mg (rounded from 1,000 mg), Oral, ONE TIME ONLY, 1 dose, On Tue05/26/23 at 1115, Routine Given 05/26/2023 11:21 AM CDT 975 mg inFLIXimab-dyyb (INFLECTRA) 1,157 mg in sodium chloride 0.9% 500 mL IVPB 1,157 mg (10 mg/kg ? 115.7 kg), IV, ONE TIME ONLY, 1 dose, On Tue05/26/23 at 1115, Routine Rate Change 05/26/2023 2:17 PM CDT 500 mL/hr Rate Change 05/26/2023 1:46 PM CDT 300 mL/hr Rate Change 05/26/2023 1:31 PM CDT 160 mL/hr loratadine (CLARITIN) tablet 10 mg 10 mg, Oral, ONE TIME ONLY, 1 dose, On Tue05/26/23 at 1115, Routine Given 05/26/2023 11:21 AM CDT 10 mg sodium chloride 0.9% infusion IV, at 30-999 mL/hr, CONTINUOUS, Starting on Roxy 05/26/23 at 1115, Until Tue05/27/23 at 0305, Routine Rate Change 05/26/2023 2:53 PM CDT 300 mL /hr New Bag 05/26/2023 11:18 AM CDT 30 mL/hr documented in this encounter Care Teams Negative Notcher Relationship Specialty Start Date End Date Mike Mitchell MD [address] [place] [address] PCP - General Family Practice 09/28/22 documented as of this encounter
--- OUTSIDE RECORDS SUMMARY | 2024-01-30 08:32 | XMS_ITS | Encounter Summary ---
Author Organization [facility] Address [address] [place] [address] Care Team Providers Care Lower In Supervisor Name Role Phone Mike Mitchell MD Primary Care Provider [phone] Reason for Visit * Reason Comments Med Refill Encounter Details Date Type Department Care Team (Late Contact Info) Description 06/06/2023 Refill [facility] Gastroenterology [facility] [address] [address] Prabhjot Ryder MD [address] [facility] [address] [place] [address] Social History Tobacco Use Types [...] (Late Contact Info) Description 02/09/2024 11:00 AM CENTRAL OFFICE FRAME WIRER Appointment [address] [address] Prabhjot Ryder MD [address] [facility] [address] [place] [address] Infusion Misti Cobos 03/27/2024 10:20 AM CENTRAL OFFICE FRAME WIRER Office Visit [facility] Gastroenterology [facility] [address] [facility] [address] [place] [address] Prabhjot Ryder MD [address] [facility] [address] [place] [address] documented as of this encounter Visit Diagnoses Not on filedocumented in this encounter Care Teams Lower In Supervisor Relationship Specialty Start Date End Date Mike Mitchell MD [address] [place] [address] PCP - General Family Practice 09/28/22 documented as of this encounter
--- OUTSIDE RECORDS SUMMARY | 2024-01-30 08:32 | XMS_ITS | Encounter Summary ---
Author Organization [facility] Address [address] [place] [address] Care Team Providers Care It Security Project Manager Name Role Phone Mike Mitchell MD Primary Care Provider [phone] [phone] Encounter Details Date Type Department Care Team (Late st Contact Info) Description 05/03/2023 External Device Data STL ABSTRACTION Provider, Abstract [...] st Contact Info) Description 02/09/2024 11:00 AM DEGREASING SOLUTION RECLAIMER Appointment [address] [address] Prabhjot Ryder MD [address] [facility] [address] [place] [address] [place] [id number] 03/27/2024 10:20 AM DEGREASING SOLUTION RECLAIMER Office Visit [facility] Gastroenterology [facility] [address] [facility] [address] [place] [address] Prabhjot Ryder MD [address] [facility] [address] [place] [address] documented as of this encounter Visit Diagnoses Not on filedocumented in this encounter Care Teams It Security Project Manager Relationship Specialty Start Date End Date Mike Mitchell MD [address] [place] [address] PCP - General Family Practice 09/28/22 documented as of this encounter
--- OUTSIDE RECORDS SUMMARY | 2024-01-30 08:32 | XMS_ITS | Encounter Summary ---
Author Organization [facility] Address [address] [place] [address] Care Team Providers Care Investigator Operator Name Role Phone Mike Mitchell MD Primary Care Provider [phone] Encounter Details Date Type Department Care Team (Late st Contact Info) Description 07/26/2023 External Device Data STL ABSTRACTION Provider, Abstract [...] st Contact Info) Description 02/09/2024 11:00 AM SUBSTANCE ABUSE PREVENTION COORDINATOR Appointment [address] [address] Prabhjot Ryder MD [address] [facility] [address] [place] [address] Infusion [facility] 03/27/2024 10:20 AM SUBSTANCE ABUSE PREVENTION COORDINATOR Office Visit [facility] Gastroenterology [facility] [address] [facility] [address] [place] [address] Prabhjot Ryder MD [address] [facility] [address] [place] [address] documented as of this encounter Visit Diagnoses Not on filedocumented in this encounter Care Teams Investigator Operator Relationship Specialty Start Date End Date Mike Mitchell MD [address] [place] [phone] PCP - General Family Practice 09/28/22 documented as of this encounter
--- OUTSIDE RECORDS SUMMARY | 2024-01-30 08:32 | XMS_ITS | Encounter Summary ---
Author Organization [facility] Address [address] [place] [address] Care Team Providers Care Powertrain Design Engineer Name Role Phone Mike Mitchell MD Primary Care Provider [phone] [phone] Reason for Visit * Reason Comments Med Refill Encounter Details Date Type Department Care Team (Late Contact Info) Description 04/03/2023 Refill [facility] Gastroenterology [facility] [address] [facility] [address] [place] [address] Prabhjot Ryder MD [address] [facility] [address] [place] [address] Social History Tobacco Use Types [...] (Late Contact Info) Description 02/09/2024 11:[address] FREIGHT FIRER Appointment [address] [address] Prabhjot Ryder MD [address] [facility] [address] [place] [address] Misti Tapia 03/27/2024 10:[address] FREIGHT FIRER Office Visit [facility] Gastroenterology [facility] [address] [facility] [address] [place] [address] Prabhjot Ryder MD [address] [place] [address] documented as of this encounter Visit Diagnoses Not on filedocumented in this encounter Care Teams Powertrain Design Engineer Relationship Specialty Start Date End Date Mike Mitchell MD [address] [place] [address] PCP - General Family Practice 09/28/22 documented as of this encounter
--- OUTSIDE RECORDS SUMMARY | 2024-01-30 08:32 | XMS_ITS | Encounter Summary ---
Author Organization [facility] Address [address] [place] [address] Care Team Providers Care Combination Welder Name Role Phone Mike Mitchell MD Primary Care Provider [phone] Reason for Visit * Auth/Cert (Routine) Specialty Diagnoses / Procedures Referred By Roberto moura Referred To Contact Perioperative Diagnoses Crohn's disease of colon with other complication Procedures FL COLONOSCOPY FLX DX W/COLLJ SPEC WHEN PFRMD CHECKOUT COLONOSCOPY Prabhjot Ryder MD [email or web address] [place] [address] [facility] Endoscopy [facility] [address] [place] [address] Referral ID Status Reason Start Date Expiration Date Visits Re quested Visits Authorized [id number] 1 1 Encounter Details Date Type Department Care Team (Late st Contact Info) Description 06/06/2023 8:20 AM CDT - 06/06/2023 9:00 AM CDT [facility] Endoscopy [facility] [address] [place] [address] Prabhjot Ryder MD [email or web address] [place] [phone] POUCHOSCOPY Surgery Details Date/Time Status Location OR Service Patient Class Case Class Case Type Trauma Case? 06/06/2023 8:20 AM Posted [facility] GI 01 Gastroenterology Outpatient Elective No Panel 1 Procedure LRB Anes Op Region Wound Class Comments POUCHOSCOPY N/A General Anus Surgeon Surgeon Role Service Panel Prabhjot Ryder MD Primary Gastroenterology 1 Case Notes 06/04 PAT complete minus email and prep sent to pharmacy-awaiting Britni response on preference for prep for pouchoscopy ET documented in this encounter Social History Tobacco [...] Sign Reading Time Taken Comments Blood Pressure 139/88 06/06/2023 8:43 AM CDT Pulse 72 06/06/2023 8:43 AM CDT Temperature 36.7 ??C (98 ??F) 06/06/2023 8:36 AM CDT Respiratory Rate 16 06/06/2023 8:43 AM CDT Oxygen Saturation 100% 06/06/2023 8:43 AM CDT Inhaled Oxygen Concentration - - Weight 117 kg (258 lb) 06/06/2023 7:41 AM CDT Height 182.9 cm (6') 06/06/2023 7:41 AM CDT Body Mass Index 34.99 06/06/2023 7:41 AM CDT documented in this encounter Discharge Instructions * Discharge Instructions* Prabhjot Ryder MD - 06/06/2023 8:44 AM CDT Instructions after Colonoscopy After a colonoscopy it [...] weeks, please call the office. Office Exchange: documented in this encounter Medications at Time [...] wks 01/25/2024 documented as of this encounter H&P Notes * Prabhjot Ryder MD - 06/06/2023 7:59 AM CDT [facility] Pre[facility]oscopy History & Physical Date: 06/06/2023 Patient: Kris Spence / 63 y.o. / male : 1960 [facility]: [id number] Planned procedure: pouchoscopy Chief Complaint: pouchoscopy for previous under-controlled crohns SUBJECTIVE: Kris Spence is a 63 y.o. male who presents for pouchoscopy . The patient denies abdominal pain, nausea, emesis, change in bowel habits, melena, or hematochezia.He is not currently on any anticoagulation/antiplatelet therapy. Infliximab 10mg/kg q4wks, changed 10/2022 to this. Improved stooling and symptoms. Last pouchoscopy 05/31/2022 - ulcers at pouch inlet, erosions efferent limb and narrowing. This was on q6wk dosing. Review of Systems: General: no unintentional weight [...] kidney stones Liver hemangioma Peptic ulcer 10/26/2022 Past Surgical History: Procedure Laterality Date HX COLONOSCOPY HX COLOSTOMY HX HERNIA REPAIR HX ROTATOR CUFF REPAIR Social History Tobacco Use Smoking Status Never Smokeless Tobacco Not on file Social History Substance and Sexual Activity Alcohol Use Yes Comment: socially Family History Problem Relation Name Age of Onset Colon Cancer Neg Hx Allergies Allergen Reactions Azathioprine Other (See Comments) Caused pancreatitis Current Facility-Administered Medications Medication Dose Route Frequency Provider Last Rate Last Admin lactated ringers infusion IV pre-proc continuous Prabhjot Ryder MD 125 mL/hr at 06/06/23 0745 New Bag at 06/06/23 0745 OBJECTIVE: BP (!) 180/95 (BP Location: Left arm, Patient Position (BP): Sitting) Pulse 87 Temp 98.1 ??F (36.7 ??C) (Temporal) Resp 26 Ht 6' (1.829 m) Wt 117 kg (258 lb) SpO2 95% BMI 34.99 kg/m?? General: pleasant, lying in bed, no distress HEENT: conjunctivae clear Lungs: effort normal, no accessory muscle usage, no respiratory distress Heart: regular rate and rhythm Abdomen: non-distended Extremities: no obvious pedal edema Skin: no obvious rashes or lesions on visualized skin Neuro: alert, cooperative, no gross focal signs on exam ASA classification per anesthesia ASSESSMENT: 1. Crohns disease, pouchoscopy PLAN: - Indications for procedure as [...] scheduled. Prabhjot Ryder M.D. Department of Gastroenterology [facility] documented in this encounter Procedure Notes * Prabhjot Ryder MD - 06/06/2023 8:44 AM CDTAssociated Order(s): POUCHOSCOPY REPORT [facility] Endoscopy Patient Name: Kris Spence Procedure Date: 06/06/2023 Date of : 1960 Age: 63 Attending MD: Prabhjot Ryder MD, Procedure: Pouchoscopy Indications: Disease activity assessment of Crohn's disease of the small bowel and colon Patient Profile: 63y/oM here for pouchoscopy, disease activity assessment for crohn's based on increased infliximab dosing to 10mg/kg [id number] in 10/2022. Improved symptoms, decreased urgency. Providers: Prabhjot Ryder MD Medicines: Monitored Anesthesia Care Procedure: Informed [...] monitoring, and direct observation were performed. The Endoscope was introduced through the ileoanal anastomosis via the anus and advanced to the ileoanal pouch and into the meghna-terminal ileum. The procedure was performed without difficulty. The patient tolerated the procedure well. The quality of the bowel preparation was adequate. Estimated Blood Loss: Estimated blood loss: none. Findings: Patient is status-post total colectomy with an ileal pouch-anal anastomosis. The perianal and digital rectal examinations were normal. Diffuse inflammation, moderate in severity and characterized by altered vascularity, congestion (edema), erythema and granularity was found in the pre-pouch ileum. Biopsies were taken with a cold forceps for histology. The afferent limb contained one semi-pedunculated, non-bleeding polyp. The polyp was 6 mm in diameter. The polyp was removed with a hot snare. Resection and retrieval were complete. The pouch inlet contained a few two mm ulcers, and appeared slightly narrowed. No bleeding was present. No stigmata of recent bleeding were seen. There was a rectal cuff beginning at 3 cm from the anal verge, characterized by congestion, edema, erythema and ulceration. Biopsies were taken with a cold forceps for histology. The ileal pouch was characterized by healthy appearing mucosa and an intact appearance. Complications: No immediate complications. Impression: - Inflammation was found in the pre-pouch ileum secondary to Crohn's disease with ileitis. Biopsied. - One afferent limb polyp, removed with a hot snare. Resected and retrieved. - A few ulcers at the pouch inlet. - Rectal cuff with congestion, edema, erythema and ulceration seen. Biopsied. - Ileal pouch with healthy appearing mucosa and an intact appearance seen. Recommendation: - Discharge patient to home (ambulatory). - Resume previous diet. - Continue present medications. - Await pathology results. - Repeat post-surgical lower GI endoscopy based on pathology results. - Return to my office as previously scheduled. Prabhjot Ryder MD 06/06/2023 8:43:44 AM This report has been signed electronically. Number of Addenda: 0 [phone] [id number] documented in this encounter OR Notes * Misa-OP - Jennyfer Ramos RN - 06/06/2023 8:11 AM CDT During pre procedure admission patient became very agitated when I was placing EKG leads on his chest. Patient stated that I needed to shave his chest first. Patient informed that we didn't have any clippers at this facility. He then stated that I need to cut the hair first. Patient again informed that we didn't have the tools to trim his hair . He then stated that we better pull off those stickers before he wakes up because he will punch someone. He said that he was serious and then stated, how would you like it if i put them on you and ripped them off . I said that it is not my intention to inflict pain on him, but we do need to monitor his VS while sedated , this is protocol . He did seem to calm down prior to procedure. * Misa-OP - Shea Carrasquillo RN - 05/16/2023 2:02 PM CDT Images from the original note were not included. DANA SEGURA Routine Pre-Anesthesia Protocol for GI Lab Procedures [facility] Approved by: [facility]-Medical Executive Committee Approval Date: 03/24/2023 ORDERS ARE ENTERED ???PER PROTOCOL?? Enter the protocol in the patient???s electronic health record using [employer]: .anestprotocolgilab Nursing Orders: Monitoring Obtain and record vital signs on admission to [facility] Continuous vital signs (Non-invasive blood [...] appropriate, may confirm POC with: Nursing Only [id number] (this lab can be obtained at no cost to the patient when confirming a critical high or Critical low POC glucose. See hypoglycemia protocol for additional orders if needed: [facility] ANES Adult Perianesthesia HYPOglycemia Protocol Notify any [...] unable to obtain urine, may obtain serum [id number]) All patients with potential for childbearing (menarche [...] RN may change to NS at 10ml/hr documented in this encounter Plan of Treatment Upcoming Encounters Date Type Department Care Team (Late st Contact Info) Description 02/09/2024 11:00 AM ADJUNCT SOCIOLOGY PROFESSOR Appointment [facility] [address] [address] Prabhjot Ryder MD [address] [place] [address] Infusion Misti Cobos 03/27/2024 10:20 AM ADJUNCT SOCIOLOGY PROFESSOR Office Visit [facility] Gastroenterology [address] [place] [phone] Prabhjot Ryder MD [address] [place] [address] documented as of this encounter Procedures Procedure Name Priority Date/Time Associated Diagnosis Comments POUCHOSCOPY REPORT 06/06/2023 8: 44 AM CDT FL NDSC EVAL INTSTINAL POUCH W/BX SINGLE/MULTIPLE 06/06/2023 8:20 AM CDT Crohn's disease of colon with other complication Case Notes 06/04 PAT complete minus email and prep sent to pharmacy-awaiting Britni response on preference for prep for pouchoscopy ET PATHOLOGY Pathology 06/06/2023 8:19 AM CDT Crohn's disease of colon with other complication documented in this encounter Results * POUCHOSCOPY REPORT (06/06/2023 8:44 AM CDT) Narrative Procedure Note Prabhjot Ryder MD - 06/06/2023 8:44 AM CDT [facility] Endoscopy Patient Name: Kris Spence Procedure Date: 06/06/2023 Date of : 1960 Age: 63 Attending MD: Prabhjot Ryder MD, Procedure: Pouchoscopy Indications: Disease activity assessment of Crohn's disease of the small bowel and colon Patient Profile: 63y/oM here for pouchoscopy, disease activity assessment for crohn's based on increased infliximab dosing to 10mg/kg [id number] in 10/2022. Improved symptoms, decreased urgency. Providers: Prabhjot Ryder MD Medicines: Monitored Anesthesia Care Procedure: Informed [...] monitoring, and direct observation were performed. The Endoscope was introduced through the ileoanal anastomosis via the anus and advanced to the ileoanal pouch and into the meghna-terminal ileum. The procedure was performed without difficulty. The patient tolerated the procedure well. The quality of the bowel preparation was adequate. Estimated Blood Loss: Estimated blood loss: none. Findings: Patient is status-post total colectomy with an ileal pouch-anal anastomosis. The perianal and digital rectal examinations were normal. Diffuse inflammation, moderate in severity and characterized by altered vascularity, congestion (edema), erythema and granularity was found in the pre-pouch ileum. Biopsies were taken with a cold forceps for histology. The afferent limb contained one semi-pedunculated, non-bleeding polyp. The polyp was 6 mm in diameter. The polyp was removed with a hot snare. Resection and retrieval were complete. The pouch inlet contained a few two mm ulcers, and appeared slightly narrowed. No bleeding was present. No stigmata of recent bleeding were seen. There was a rectal cuff beginning at 3 cm from the anal verge, characterized by congestion, edema, erythema and ulceration. Biopsies were taken with a cold forceps for histology. The ileal pouch was characterized by healthy appearing mucosa and an intact appearance. Complications: No immediate complications. Impression: - Inflammation was found in the pre-pouch ileum secondary to Crohn's disease with ileitis. Biopsied. - One afferent limb polyp, removed with a hot snare. Resected and retrieved. - A few ulcers at the pouch inlet. - Rectal cuff with congestion, edema, erythema and ulceration seen. Biopsied. - Ileal pouch with healthy appearing mucosa and an intact appearance seen. Recommendation: - Discharge patient to home (ambulatory). - Resume previous diet. - Continue present medications. - Await pathology results. - Repeat post-surgical lower GI endoscopy based on pathology results. - Return to my office as previously scheduled. Prabhjot Ryder MD 06/06/2023 8:43:44 AM This report has been signed electronically. Number of Addenda: [address] [address] Prabhjot Ryder MD GI PROCEDURE ORDERAB LES * PATHOLOGY (06/06/2023 8:19 AM CDT) CASE REPORT Surgical Pathology Report ? Case: [id number] ? Authorizing Provider: ??Prabhjot Ryder MD ?Collected: ? 06/06/2023 08:19 AM ? Ordering Location: ? [facility] End[facility] ?? Received: ?06/07/2023 07:51 AM ? [facility] ? Pathologist: ? Jose Juan, Luke Mike, ? MD ? Specimens: ?? A) - Small Intestine, afferent ileum bx ? B) - Small Intestine, afferent ileum polyp ? C) - Rectum, rectal cuff ulcer bx ? 4 4:28 PM [facility] FINAL DIAGNOSIS A. Small intestine, biopsy: - Small bowel mucosa with moderate active inflammation B. Ileum, polypectomy: - Inflammatory pseudopolyp - Negative for dysplasia C. Rectal cuff, ulcer, biopsy: - Severe chronic active proctitis 4 4:28 PM [facility] S DESCRIPTION The specimens are received in three containers each labeled Kris Spence . Received in the first container additionally labeled small intestine biopsy are 3 pieces of arredondo tissue ranging from 0.2 to 0.3 cm in greatest dimension. All are submitted in cassette A1. Received in the second container additionally labeled small intestine ileum polyp is 1 piece of red-arredondo tissue measuring 0.6 x 0.5 x 0.4 cm. It is entirely submitted in cassette B1. Received in the third container additionally labeled rectal cuff ulcer biopsy are 4 pieces of suarez-arredondo tissue ranging from 0.2 to 0.3 cm in greatest dimension. All are submitted in cassette C1. [facility] 4 4:28 PM [facility] MICROSCOPIC DESCRIPTION The slides are labeled [id number] and Kris Spence. A. Sections show small bowel mucosa with scattered neutrophils within the lamina propria. There is no significant neutrophilic cryptitis or crypt microabscesses. The villous architecture may show some partial villous blunting. Interpretation is somewhat hindered by the small and tangential orientation of the specimen. Negative for dysplasia. B. Sections show a polypoid fragment of enteric mucosa with expansion of the lamina propria by mixed inflammatory cells, to include plasma cells, eosinophils, and neutrophils. The surface of the polyp demonstrates erosion with fibrin. Negative for dysplasia. C. Sections show colorectal mucosa with numerous scattered neutrophils throughout the lamina propria. There are areas of crypt architectural distortion and crypt dropout. Negative for dysplasia. 4 4:28 PM CDT [facility] OPERATIVE PROCEDURE 1: POUCHOSCOPY 4 4:28 PM CDT [facility] CLINICAL INFORMATION A R/o Crohn's R/o Crohn's Crohn's disease of colon with other complication [K50.118] K50.118-Crohn's disease of colon with other complication 4 4:28 PM CDT [facility] COMMENT Special stain, immunohistochemical, and/or in situ hybridization results are interpreted with controls that demonstrate appropriate staining reactions. Note on use of immunohistochemistry reagents and in situ hybridization probes: These tests were developed and their performance characteristics determined by [facility], Department of Laboratory Medicine. It has [...] part or completely in the following laboratories: [facility], [place] #[id number] [address] [place] [address] , [place] #[id number] [address] [place] [address] [facility], [place] #[id number] [address] [place] [address] This report was created with the [employer] voice-activated dictation system. Inherent to this system is the possibility of syntax, grammar, punctuation and other errors that could impact the interpretation of the report. If there are interpretative questions about aspects of this report, please contact the performing pathologist. 4 4:28 PM T [facility] Tissue (Small Intestine) Collection / Unknown 06/06/2023 8:19 AM CDT 06/07/2023 7:51 AM CDT Comment:R/o Crohn's Tissue specimen (specimen) (Small Intestine) Collection / Unknown 06/06/2023 8:19 AM CDT 06/07/2023 7:51 AM CDT Tissue specimen (specimen) ENTIRE RECTUM / Unknown 06/06/2023 8:26 AM CDT 06/07/2023 7:51 AM CDT Comment:R/o dysplasia Prabhjot Ryder MD PATHOLOGY/CYTOLOGY O RDERABLES Performing Organization Address City/State/[facility] Co de Phone Number [facility]# [id number] [address] [facility] [facility] [place] [address] documented in this encounter Visit Diagnoses Diagnosis Crohn's disease of colon with other complication Crohn's disease of colon with other complication documented in this encounter Administered Medications Inactive Administered Medications - up to 3 most recent administrations Medication Order MAR Action Action Date Dose Rate Site lactated ringers infusion IV, at 125 mL/hr, PRE-PROCEDURE CONTINUOUS, Starting on Tue06/06/23 at 0745, Until Tue06/06/23 at 1106, Routine, Pre-Procedure Rate Change 06/06/2023 8:34 AM CDT 60 0 mL/hr Continue from Pre-Op 06/06/2023 7:57 AM CDT 125 mL/hr New Bag 06/06/2023 7:45 AM CDT 125 mL/hr documented in this encounter Active and Recently Administered Medications Times are shown in CDT. Continuous Medication Order 06/04/2023 06/05/2023 06/06/2023 lactated ringers infusion IV, at 125 mL/hr, PRE-PROCEDURE CONTINUOUS, Starting on Tue06/06/23 at 0745, Until Tue06/06/23 at 1106, Routine, Pre-Procedure 0745 (New Bag - Prov ider: Jennyfer Ramos RN)0757 (Continue from Pre-Op - Provider: Elissa Montelongo MD)0834 (Rate Change - Provider: Elissa Montelongo MD)0845 (Stopped - Provider: Abigail Ash RN) documented in this encounter Care Teams Combination Welder Relationship Specialty Start Date End Date Mike Mitchell MD [address] [place] [address] PCP - General Family Practice 09/28/22 documented as of this encounter
--- OUTSIDE RECORDS SUMMARY | 2024-01-30 08:32 | XMS_ITS | Encounter Summary ---
Author Organization [facility] Address [address] [place] [address] Care Team Providers Care Med Dir Name Role Phone Mike Mitchell MD Primary Care Provider [phone] Encounter Details Date Type Department Care Team (Late st Contact Info) Description 11/01/2023 External Device Data STL ABSTRACTION Provider, [...] st Contact Info) Description 02/09/2024 11:00 AM MEDICATION AIDE Appointment [address] [address] Prabhjot Ryder MD [address] [facility] [address] [place] [address] Infusion Misti 03/27/2024 10:20 AM MEDICATION AIDE Office Visit [facility] Gastroenterology [facility] [address] [facility] [facility] [address] [place] [address] Prabhjot Ryder MD [address] [facility] [address] [place] [address] documented as of this encounter Visit Diagnoses Not on filedocumented in this encounter Care Teams Med Dir Relationship Specialty Start Date End Date Mike Mitchell MD [address] [place] [phone] PCP - General Family Practice 09/28/22 documented as of this encounter
--- OUTSIDE RECORDS SUMMARY | 2024-01-30 08:32 | XMS_ITS | Encounter Summary ---
Author Organization [facility] Address [address] [place] [address] Care Team Providers Care Motion Picture Camera Operator Name Role Phone Mike Mitchell MD Primary Care Provider [phone] [phone] Reason for Visit * Outpatient Services (Routine) - Authorized Specialty Diagnoses / Procedures Referred By Contact Referred To Contact Hematology and Oncology Diagnoses Crohn's disease of colon with other complication Procedures INFUSION THERAPY MD INJECTION, INFLECTRA MD METHYLPREDNISOLONE INJECTION MD DIPHENHYDRAMINE HCL INJECTIO Inflectra, SoluMedrol, Benadryl Prabhjot Ryder MD [address] [place] [address] [facility] [address] [facility] [address] [place] [address] Referral ID Status Reason Start Date Expiration Date V isits Requested Visits Authorized [id number] Authorized 04/12/2023 05/03/2024 12 12 Encounter Details Date Type Department Care Team (Latest Contact Info) Description 08/18/2023 10:43 AM CDT - 08/18/2023 11:59 PM CDT Hospital Encounter [facility] [address] [facility] [address] [place] [address] Prabhjot Ryder MD [address] [place] [address] Infusion 5, [place] Discharge Disposition: Home or Self Care Social [...] Sign Reading Time Taken Comments Blood Pressure 154/83 08/18/2023 10:48 AM CDT Pulse 72 08/18/2023 10:48 AM CDT Temperature 36.8 ??C (98.3 ??F) 08/18/2023 10:48 AM C DT Respiratory Rate 16 08/18/2023 10:48 AM CDT Oxygen Saturation - - Inhaled Oxygen Concentration - - Weight 116.1 kg (256 lb) 08/18/2023 10:00 AM CDT Height - - Body Mass Index 34.72 06/06/2023 7:41 AM CDT documented in this [...] tablet Take 100 mcg by mouth daily. mesalamine (CANASA) 1,000 mg SuppositoryIndications :Proctitis Insert 1 Suppository (1,000 mg) by rectum daily at bedtime. 30 Suppository 5 06/21/2023 sodium chloride 0.9% Parenteral Solution 250 mL with inFLIXimab 100 mg Recon Soln 10 mg Inject 10 mg by intravenous injection one time only. Every 6 wks 4 documented as of this encounter Progress Notes * Pebbles Torres RN - 08/18/2023 11:00 AM CDT Kris Spence admitted to [facility] for infusion. Denies questions about medication/side effects as well as active infection. TB test negative within the last 12 months. Remicade titrated per protocol and pt tolerated without difficulty/reaction. Pt instructed to notify physician or go to ED if there are any changes in their condition. Verbalized understanding. Discharged home. documented in this encounter Plan of Treatment Upcoming Encounters Date Type Department Care Team (Late st Contact Info) Description 02/09/2024 11:00 AM BEATER MACHINE OPERATOR Appointment [address] [address] Prabhjot Ryder MD [address] [facility] [address] [place] [address] Infusion Misti Cobos 03/27/2024 10:20 AM BEATER MACHINE OPERATOR Office Visit [facility] Gastroenterology [facility] [address] [facility] [address] [place] [address] Prabhjot Ryder MD [address] [facility] [address] [place] [address] documented as of this encounter Visit Diagnoses Not on filedocumented in this encounter Administered Medications Inactive Administered Medications - up to 3 most recent administrations Medication Order MAR Action Action Date Dose Rate Site acetaminophen (TYLENOL) tablet 975 mg 975 mg (rounded from 1,000 mg), Oral, ONE TIME ONLY, 1 dose, On Roxy 08/18/23 at 1100, Routine Given 08/18/2023 11:08 AM CDT 975 mg inFLIXimab-dyyb (INFLECTRA) 1,159 mg in sodium chloride 0.9% 500 mL IVPB 1,159 mg (10 mg/kg ? 115.9 kg), IV, ONE TIME ONLY, 1 dose, On Roxy 08/18/23 at 1115, Routine Rate Change 08/18/2023 1:12 PM CDT 500 mL/hr Rate Change 08/18/2023 12:41 PM CDT 300 mL/hr Rate Change 08/18/2023 12:26 PM CDT 160 mL/hr loratadine (CLARITIN) tablet 10 mg 10 mg, Oral, ONE TIME ONLY, 1 dose, On Roxy 08/18/23 at 1100, Routine Given 08/18/2023 11:08 AM CDT 10 mg sodium chloride 0.9% infusion IV, at 30 mL/hr, CONTINUOUS, Starting on Roxy 08/18/23 at 1100, Until Tue08/19/23 at 0304, Routine Rate Change 08/18/2023 1:52 PM CDT 300 mL/hr New Bag 08/18/2023 11:08 AM CDT 30 mL/hr documented in this encounter Care Teams Motion Picture Camera Operator Relationship Specialty Start Date End Date Mike Mitchell MD [address] [place] [address] PCP - General Family Practice 09/28/22 documented as of this encounter
--- OUTSIDE RECORDS SUMMARY | 2024-01-30 08:32 | XMS_ITS | Encounter Summary ---
Author Organization [facility] Address [address] [place] [address] Care Team Providers Care Skein Yarn Drier Name Role Phone Mike Micthell MD Primary Care Provider [phone] Reason for Referral * Eval and Treat (Routine) - Pending Review Specialty Diagnoses / Procedures Referred By Roberto moura Referred To Contact Gastroenterology Diagnoses Crohn's disease of colon with other complication Procedures OK OFFICE/OUTPATIENT ESTABLISHED MOD MDM 30 MIN OK OFFICE/OUTPATIENT NEW MODERATE MDM 45 MINUTES COLON Prabhjot Ryder MD [address] [facility] [address] [place] [address] Prabhjot Ryder MD [facility] [address] [place] [address] Referral ID Status Reason Start Date Expiration Date Visits Requested Visits Authorized [id number] Pending Review Performing Department to Schedule 04/26/2023 04/26/2024 1 1 Reason for Visit * Reason Comments Crohn's Disease Encounter Details Date Type Department Care Team (Latest Contact Info) Description 04/26/2023 1:00 PM CDT Office Visit [facility] Gastroenterology [facility] [address] [facility] [address] [place] [address] Prabhjot Ryder MD [address] [facility] [address] [place] [address] Crohn's disease of colon with [...] Sign Reading Time Taken Comments Blood Pressure 158/101 04/26/2023 12:38 PM CDT Pulse 82 04/26/2023 12:38 PM CDT Temperature - - Respiratory Rate - - Oxygen Saturation - - Inhaled Oxygen Concentration - - Weight 120.7 kg (266 lb) 04/26/2023 12:35 PM CDT Height 182.9 cm (6') 04/26/2023 12:35 PM CDT Body Mass Index 36.08 04/26/2023 12:35 PM CDT documented in this encounter Progress Notes * Prabhjot Ryder MD - 04/26/2023 12:39 PM CDT Date of Visit: 04/26/2023 Date of : 1960 CSN: [id number] PCP: Mike Mitchell MD History of Present Illness: Kris [...] these medications, but he has been on Humira, Stelara, Entyvio, and most recently since early 2020, infliximab. He was seen at [facility] on 08/07/2020, and noted to have symptomatic improvement while being on the infliximab initially. He had a pouchoscopy 11/14/2020 with a few ulcers in the inferior limb, as well as pseudopolyps. 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 His Remicade level at that time was 1.4 with no antibody, so he was increased to 10 mg/kg for his dose on 03/02/2021. His remicade level [...] follow-up with Dr. Moreno in clinic at [facility], however prior to his appointment with her, [...] knows he is going to be outdoing something, which she will take a couple of Imodium which improves this. No blood in the stool. Interval Hx: Increase in flatulence, but not bothersome. Less imodium than usual, which he likes. Broadening diet, tolerating. Less urgency and liquid with his Bms. Weight stable. Shoulder better after surgery. No rectal bleeding. Fiber wafers made him bloated, so he stopped. Past Medical History: Diagnosis Date H/O repair of right rotator cuff History of colostomy reversal History of kidney stones Liver hemangioma Peptic ulcer 10/26/2022 Current Outpatient Medications Medication Sig Dispense Refill sulfaSALAzine (AZULFIDINE) 500 mg tablet TAKE 2 TABLETS (1,000 MG) BY MOUTH 4 TIMES DAILY. 240 Tablet 2 esomeprazole (NexIUM) 20 mg Capsule, Delayed Release(E.C.) [...] HX HERNIA REPAIR HX ROTATOR CUFF REPAIR No family history on file. Social History Tobacco Use Smoking status: Never Smokeless tobacco: Not on file Substance Use Topics Alcohol use: Yes Review of Systems Denies other gastrointestinal or constitutional symptoms. Physical Exam: BP (!) 167/93 Pulse 87 Ht 6' (1.829 m) Wt 120.7 kg (266 lb) BMI 36.08 kg/m?? Constitutional: Appears well-developed and well-nourished. No acute [...] Review Lab Results Component Value Date WBC 5.0 11/26/2022 HGB 15.6 11/26/2022 HCT 43.9 11/26/2022 PLT 223 11/26/2022 MCV 89.8 11/26/2022 Lab Results Component Value Date NA 136 11/26/2022 K 3.3 (L) 11/26/2022 CL 101 11/26/2022 CO2 26 11/26/2022 CA 9.3 11/26/2022 BUN 19 11/26/2022 CREAT 1.08 11/26/2022 GLUCOSE 173 (H) 11/26/2022 TOTALPROTEIN 7.3 11/26/2022 ALBUMIN 4.6 11/26/2022 BILITOTAL 0.5 11/26/2022 ALKPHOS 43 11/26/2022 AST 26 11/26/2022 ALT 30 11/26/2022 BCRATIO SEE NOTE: 11/26/2022 Imaging Review DEXA 02/2023 Normal BMD. Endoscopy Review Pouchoscopy 05/31/2022 Impression: - Preparation of the pouch was fair. - The rectal cuff is normal. - The ileoanal pouch is normal. - A few ulcers at the pouch inlet. - A few erosions in the afferent limb with relative narrowing at the loop ileostomy site. - The afferent limb is normal proximal and distal to the previous loop ileostomy site. - No specimens collected. ASSESSMENT: Kris Spence is a pleasant 63 y.o. male who presents in return for: #Crohn's of the pouch, active #s/p IPAA J pouch #Suboptimal infliximab level #Extraintestinal manifestations of Crohn's #Multiple incisional hernia repairs 63-year-old male presents in follow-up. Doing quite well overall, seems to be improving on the every 4-week dosing of his infliximab. This time to recheck his levels, as below. Going to check CRP As Well. He Needs a Pouchoscopy, As His Last One Was about a Year Ago and Has Been over 6 Months at This Time That Has Been Optimized on Every 4-Week Dosing. His Labs Are Up-To-Date Otherwise, Is Due forQuantiFERON in 1 Year. Recent DEXA Scan Was Normal. Overall he is doing quite well. Clinically, improving. Will need to check endoscopic improvement as well given his last pouchoscopydid have ulcers and erosions with narrowing of the loop ileostomy site. Labs reviewed, imaging reviewed, last scope reviewed as well with patient. PLAN: -continue infliximab to 10 mg/kg every 4 weeks -Check inliximab levels, Ab, calpro, CRP -Schedule pouchoscopy -Quantiferon due 04/2024 -CBC/CMP from 08/2022 -Declines COVID and pneumococcal vaccinations -Yearly skin exam -DEXA normal (02/2023) -Return to clinic 6 months Prabhjot Ryder MD [facility] documented in this encounter Miscellaneous Notes * Patient Instructions - Prabhjot Ryder MD - 04/26/2023 1:04 PM CDT It was a pleasure meeting with you today in the [facility]. I hope we provided you with excellent care today at [facility]. During our visit we discussed the following: We will plan for lab work and stool studies. The lab work can be pulled right before your next infusion. We will also plan for a colonoscopy, to be scheduled today. Continue your current infliximab routine. We will see you back in 6 months. Please call the clinic with any questions or concerns. [phone]. Prabhjot Ryder M.D. Department of Gastroenterology [facility] documented in this encounter Plan of Treatment Upcoming Encounters Date Type Department Care Team (Late st Contact Info) Description 02/09/2024 11:00 AM SURVEILLANCE AGENT Appointment [address] [address] Prabhjot Ryder MD [address] [facility] [address] [place] [address] Infusion 7Misti 03/27/2024 10:20 AM SURVEILLANCE AGENT Office Visit [facility] Gastroenterology [facility] [address] [facility] [address] [place] [address] Prabhjot Ryder MD [address] [facility] [address] [place] [address] Scheduled Referrals Name Type Priority Associated Diagnoses Order Schedule AMB REFERRAL TO GASTROENTEROLOGY Outpatient Referral Routine Crohn's disease of colon with other complication Ordered: 04/26/2023 documented as of this encounter Procedures Procedure Name Priority Date/Time Associated Diagnosis Comments CALPROTECTIN, FECAL Routine 05/03/2023 12:57 PM CDT Crohn's disease of colon with other complication documented in this encounter Results * INFLIXIMAB LEVEL PANEL (06/23/2023 10:47 AM CDT) INFLIXIMAB LEVEL, IBD 15.6 mcg/mL [facility], INFLIXIMAB AB, IBD <10 <10 AU Q [facility], INFLIXIMAB INTERPRETATION SEE NOTE [facility], Comment: The infliximab and infliximab anti-drug antibody (ADA) assays were initially designed for the detection of the infliximab drug and its ADA. Because infliximab and its biosimilars share the same amino acid sequence and have essentially the same molecular structure, these assays were subsequently validated for the detection of infliximab-dyyb (inflectra) and inflectra ADA with no analytical differences between these two. Based on the results of clinical equivalence studies, the FDA and the [employer] advocate applying infliximab clinical guidance to the use of its biosimilars. The [employer] recommends optimal infliximab trough concentration of 5.0 mcg/mL or greater in patients with active IBD. Data from separate clinical studies suggest an optimal infliximab trough concentration greater than 3.8 mcg/mL or 6.0-10.0 mcg/mL. Subtherapeutic infliximab levels may be due to a patient not yet achieving a steady state trough level early in therapy, inadequate dosing, a dosing interval that is too long, or accelerated infliximab clearance. Accelerated infliximab clearance may be explained by the presence of infliximab anti-drug antibody or rheumatoid factor in the patient's serum, or may be caused by other diseases that indirectly lead to immunoglobulin loss (i.e. kidney disease, protein-losing gastroenteropathy). If infliximab level is subtherapeutic but total infliximab anti-drug antibody is not detected: Patients with a subtherapeutic infliximab trough level, but no anti-drug antibody, may benefit from an increased infliximab dose. If infliximab level is subtherapeutic and total infliximab anti-drug antibody is detected: Detectable serum infliximab anti-drug antibody may cause accelerated infliximab clearance leading to reduced trough levels and a compromised clinical response. Such patients are more likely to benefit from a switch in biologic therapy than from an increase in infliximab dose. If infliximab level is therapeutic and total infliximab anti-drug antibody is not detected: In patients who do not respond or who lose their clinical response, mucosal inflammation is likely to be driven by a process that is not TNF alpha dependent. A switch to a different class of therapy should be considered. If infliximab level is therapeutic and total infliximab anti-drug antibody is detected: If the patient is responding clinically, the detected anti-drug antibody may not be clinically significant because the detected anti-drug antibody may not be functional or the level is inadequate to accelerate infliximab clearance. Anti-drug antibody may disappear over time or increase, and, if increased, may cause subtherapeutic infliximab levels and a loss of response in the future. Patients with a loss of infliximab response despite therapeutic trough levels may benefit from a switch to a different class of therapy. These tests were performed using the JACKY method. Infliximab levels obtained with different assay methods cannot be used interchangeably. Interfering substances found in sera of patients receiving infliximab therapy have different influence on infliximab levels measured on various assay platforms. This information is provided for informational purposes only and is not intended as medical advice. A physician's test selection and interpretation, diagnosis, and patient management decisions should be based on his/her education, clinical expertise, and assessment of the patient. The treating healthcare professional should refer to the last puller's approved labeling for prescribing, warnings, side effects and other important information. INFLIXIMAB COMMENT SEE NOTE [facility], Comment: This test was developed and its analytical performance characteristics have been determined by [facility]. It has not been cleared or approved by FDA. This assay has been validated pursuant to the CLIA regulations and is used for clinical purposes. For additional information, please refer to https://education.[employer].Connectloud/faq/CLQ209 (This link is being provided for informational/educational purposes only.) ?Summary of Demographics Changes Patient demographics have changed. No other changes to any test results have been made. Date Maryjane updated to: 06/23/2023 Changed on: 06/27/2023 Test Performed at: [facility], [address] [place], [place] ??[address] Carlotta Herrera MD,PhD,MARIA INES Blood 06/23/2023 10:4 7 AM CDT 06/23/2023 8:51 PM CDT Prabhjot Ryder MD CHEMISTRY ORDERABLES [facility] [phone] [facility] [employer], [address] [place] [address] * CALPROTECTIN, FECAL (05/03/2023 12:57 PM CDT) CALPROTECTIN, FECAL 112 mcg/g [employer] [facility], Comment: ?Reference Range: ?<50 ? Normal ?50-120 ??Borderline ?>120 ?Elevated Calprotectin in Crohn's disease and ulcerative colitis can be five to several thousand times above the reference population (50 mcg/g or less). Levels are usually 50 mcg/g or less in healthy patients and with irritable bowel syndrome. Repeat testing in 4-6 weeks is suggested for borderline values. FASTING:NO FASTING: NO Test Performed at: [facility], [address] [place], [place] ??[address] Carlotta Herrera MD,PhD,MARIA INES Stool STOOL SPECIMEN / Unknown 05/03/2023 12:57 PM CDT 05/03/2023 12:58 PM CDT Prabhjot Ryder MD BODY FLUIDS AND STOO LS Performing Organization Address City/State/ZIP Co fl Phone Number [facility] [phone] [facility] [employer], [address] [place] [address] * C-REACTIVE PROTEIN (04/26/2023 12:00 AM CDT) CRP <5.0 <8.0 mg/L [facility] Comment: Test Performed at: [place] [address] [place], [place] ??[address] Rome Castillo Blood 04/26/2023 06/23/2023 8:5 1 PM CDT Prabhjot Ryder MD CHEMISTRY ORDERABLES Performing Organization Address [facility]/ZIP [facility] Phone Number [facility] [phone] [place] [address] [place] [address] documented in this encounter Visit Diagnoses Diagnosis Crohn's disease of colon with other complication- Primary documented in this encounter Care Teams Skein Yarn Drier Relationship Specialty Start Date End Date Mike Mitchell MD [address] [place] [phone] PCP - General Family Practice 09/28/22 documented as of this encounter
--- OUTSIDE RECORDS SUMMARY | 2024-01-30 08:32 | XMS_ITS | Encounter Summary ---
Author Organization [facility] Address [address] [place] [address] Care Team Providers Care Hub Lead Name Role Phone Mike Mitchell MD Primary Care Provider [phone] Encounter Details Date Type Department Care Team (Late st Contact Info) Description 05/06/2023 External Device Data STL ABSTRACTION Provider, Abstract [...] st Contact Info) Description 02/09/2024 11:00 AM PIPELINE INSPECTOR Appointment [address] [address] Prabhjot Ryder MD [address] [facility] [address] [place] [address] [place] [address] 03/27/2024 10:20 AM PIPELINE INSPECTOR Office Visit [facility] Gastroenterology [facility] [address] [facility] [address] [place] [address] Prabhjot Ryder MD [address] [facility] [address] [place] [address] documented as of this encounter Visit Diagnoses Not on filedocumented in this encounter Care Teams Hub Lead Relationship Specialty Start Date End Date Mike Mitchell MD [address] [place] [address] PCP - General Family Practice 09/28/22 documented as of this encounter
--- OUTSIDE RECORDS SUMMARY | 2024-01-30 08:32 | XMS_ITS | Encounter Summary ---
Author Organization [facility] Address [address] [place] [address] Care Team Providers Care Door Machine Operator Name Role Phone Mike Mitchell MD Primary Care Provider [phone] Encounter Details Date Type Department Care Team [...] st Contact Info) Description 02/09/2024 11:00 AM TOE STAPLER Appointment [address] [address] Prabhjot yRder MD [address] [facility] [address] [place] [address] Infusion Misti 03/27/2024 10:20 AM TOE STAPLER Office Visit [facility] Gastroenterology [facility] [address] [facility] [address] [place] [address] Prabhjot Ryder MD [address] [facility] [address] [place] [address] documented as of this encounter Visit Diagnoses Not on filedocumented in this encounter Care Teams Door Machine Operator Relationship Specialty Start Date End Date Mike Mitchell MD [address] [place] [phone] PCP - General Family Practice 09/28/22 documented as of this encounter
--- OUTSIDE RECORDS SUMMARY | 2024-01-30 08:32 | XMS_ITS | Encounter Summary ---
Author Organization [facility] Address [address] [place] [address] Care Team Providers Care Certified Personal Finance Counselor Name Role Phone Mike Mitchell MD Primary Care Provider [phone] [phone] Reason for Visit * Outpatient Services (Routine) - Closed Specialty Diagnoses / Procedures Referred By Roberto t Referred To Contact Hematology and Oncology Diagnoses Crohn's disease of colon with other complication 10mg/kg every 4 weeks. Procedures INFUSION THERAPY CO INFLIXIMAB NOT BIOSIMIL 10MG Remicade, Solu-medrol, Benadryl Prabhjot Ryder MD [address] [place] [address] [facility] [address] [facility] [address] [place] [address] Referral ID Status Reason Start Date Expiration Date Visits Re quested Visits Authorized [id number] Closed 10/27/2022 11/02/2023 12 12 Encounter Details Date Type Department Care Team (Latest Contact Info) Description 04/21/2023 10:53 AM CDT - 04/21/2023 11:59 PM CDT Hospital Encounter [facility] [address] [facility] [address] [place] [address] Prabhjot Ryder MD [address] [place] [address] Infusion 1, [place] Discharge Disposition: Home or Self Care Social [...] Reading Time Taken Comments Blood Pressure 140/78 04/21/2023 11:54 AM CDT Pulse 76 04/21/2023 11:54 AM CDT Temperature - - Respiratory Rate 18 04/21/2023 11:5 4 AM CDT Oxygen Saturation - - Inhaled Oxygen Concentration - - Weight 119.7 kg (263 lb 12.8 oz) 2023 11:26 AM CDT Height - - Body Mass Index 35.78 01/25/2023 11:26 AM SOCIAL SCIENCE PROFESSOR documented in this encounter Medications at Time of Discharge Medication Sig Dispensed Refills Start Date End Date esomeprazole (NexIUM) 20 mg Capsule, Delayed Release(E.C.) [...] Progress Notes * Pebbles Torres RN - 04/21/2023 11:00 AM CDT Kris Spence admitted to [facility] for infusion. Denies questions about medication/side effects after discussed. Inflectra given without difficulty. Pt instructed to notify physician orreport to ED if there are any changes in their condition. Verbalized understanding. Pt discharged home. documented in this encounter Plan of Treatment Upcoming Encounters Date Type Department Care Team (Late st Contact Info) Description 02/09/2024 11:00 AM SOCIAL SCIENCE PROFESSOR Appointment [address] [address] Prabhjot Ryder MD [address] [place] [address] [place] [address] Infusion Misti Cobos 03/27/2024 10:20 AM SOCIAL SCIENCE PROFESSOR Office Visit [facility] Gastroenterology [facility] [address] [facility] [address] [place] [address] Prabhjot Ryder MD [address] [place] [address] [place] [address] documented as of this encounter Procedures Procedure Name Priority Date/Time Associated Diagnosis Comments QUANTIFERON TB GOLD Routine 04/21/2023 1 1:30 AM CDT Crohn's disease of colon with other complication documented in this encounter Results * QUANTIFERON TB GOLD (04/21/2023 11:30 AM CDT) QUANTIFERON TB GOLD PLUS NEGATIVE NEGATIVE [facility] Comment: Negative test result. M. tuberculosis complex infection unlikely. NIL 0.06 IU/mL [facility] MITOGEN-NIL 8.59 IU/mL [facility] TB1 AG - NIL 0.00 IU/mL [facility] TB2 AG - NIL 0.00 IU/mL [facility] Comment: The Nil [...] T-lymphocytes. For additional information, please refer to https://education.23press/faq/FLG122 (This link is being provided for informational/ educational purposes only.) Test Performed at: [facility] [address] [place], [place] ??[address] Rome Castillo MD Blood 04/21/2023 11:3 0 AM CDT 04/22/2023 9:29 AM CDT Prabhjot Ryder MD CHEMISTRY ORDERABLES Performing Organization Address City/State/[facility] Co de Phone Number [facility] [phone] [facility] [employer] [address] documented in this encounter Visit Diagnoses Diagnosis Crohn's disease of colon with other complication documented in this encounter Administered Medications Inactive Administered Medications - up to 3 most recent administrations Medication Order MAR Action Action Date Dose Rate Site acetaminophen (TYLENOL) tablet 975 mg 975 mg (rounded from 1,000 mg), Oral, ONE TIME ONLY, 1 dose, On Roxy 04/21/23 at 1130, Routine Given 04/21/2023 11:47 AM CDT 975 mg inFLIXimab (REMICADE) 1,198 mg in sodium chloride 0.9% 500 mL IVPB 1,198 mg (10 mg/kg ? 119.8 kg), IV, ONE TIME ONLY, 1 dose, On Roxy 04/21/23 at 1130, Routine Rate Change 04/21/2023 2:01 PM CDT 500 mL/hr Rate Change 04/21/2023 1:31 PM CDT 300 mL/hr Rate Change 04/21/2023 1:00 PM CDT 160 mL/hr loratadine (CLARITIN) tablet 10 mg 10 mg, Oral, DAILY, First dose on Roxy 04/21/23 at 1130, Until Discontinued, Routine Given 04/21/2023 11:47 AM CDT 10 mg sodium chloride 0.9% infusion IV, at 30-999 mL/hr, CONTINUOUS, Starting on Roxy 04/21/23 at 1130, Until Tue04/22/23 at 0302, Routine Rate Change 04/21/2023 2:37 PM CDT 300 mL /hr New Bag 04/21/2023 11:47 AM CDT 30 mL/hr documented in this encounter Care Teams Certified Personal Finance Counselor Relationship Specialty Start Date End Date Mike Mitchell MD [address] [place] [phone] PCP - General Family Practice 09/28/22 documented as of this encounter
--- OUTSIDE RECORDS SUMMARY | 2024-01-30 08:32 | XMS_ITS | Encounter Summary ---
Author Organization [facility] Address [address] [place] [address] Care Team Providers Care Hospital Nursing Assistant Name Role Phone Mike Mitchell MD Primary Care Provider [phone] [phone] Encounter Details Date Type Department Care Team (Late st Contact Info) Description 10/18/2023 External Device Data STL ABSTRACTION Provider, Abstract [...] st Contact Info) Description 02/09/2024 11:00 AM HEAD CONTROL CLERK Appointment [address] [address] Prabhjot Ryder MD [address] [facility] [address] [place] [address] Infusion Misti 03/27/2024 10:20 AM HEAD CONTROL CLERK Office Visit [facility] Gastroenterology [facility] [address] [facility] [address] [place] [address] Prabhjot Ryder MD [address] [facility] [address] [place] [address] documented as of this encounter Visit Diagnoses Not on filedocumented in this encounter Care Teams Hospital Nursing Assistant Relationship Specialty Start Date End Date Mike Mitchell MD [address] [place] [phone] PCP - General Family Practice 09/28/22 documented as of this encounter
--- OUTSIDE RECORDS SUMMARY | 2024-01-30 08:32 | XMS_ITS | Encounter Summary ---
Author Organization [facility] Address [address] [place] [address] Care Team Providers Care Helper Metal Hanging Name Role Phone Mike Mitchell MD Primary Care Provider [phone] [phone] Reason for Visit * Outpatient Services (Routine) - Authorized Specialty Diagnoses / Procedures Referred By Contact Referred To Contact Hematology and Oncology Diagnoses Crohn's disease of colon with other complication Procedures INFUSION THERAPY VA INJECTION, INFLECTRA VA METHYLPREDNISOLONE INJECTION VA DIPHENHYDRAMINE HCL INJECTIO Inflectra, SoluMedrol, Benadryl Prabhjot Ryder MD [address] [place] [address] [facility] [address] [facility] [address] [place] [address] Referral ID Status Reason Start Date Expiration Date V isits Requested Visits Authorized [id number] Authorized 04/12/2023 05/03/2024 12 12 Encounter Details Date Type Department Care Team (Latest Contact Info) Description 06/23/2023 10:47 AM CDT - 06/23/2023 11:59 PM CDT Hospital Encounter [facility] [address] [facility] [address] [place] [address] Prabhjot Ryder MD [address] [place] [address] Infusion 10, [place] Discharge Disposition: Home or Self Care Social [...] Sign Reading Time Taken Comments Blood Pressure 172/87 06/23/2023 10:55 AM CDT Pulse 73 06/23/2023 10:55 AM CDT Temperature 36.9 ??C (98.5 ??F) 06/23/2023 10:55 AM C DT Respiratory Rate 18 06/23/2023 10:55 AM CDT Oxygen Saturation - - Inhaled Oxygen Concentration - - Weight 115.8 kg (255 lb 4 oz) 06/23/2023 10:49 A M CDT Height - - Body Mass Index 34.62 06/06/2023 7:41 AM CDT documented in this [...] as of this encounter Progress Notes * Timothy Chisholm RN - 06/23/2023 2:29 PM CDT Kris Spence admitted to [facility] for infusion. Denies questions about medication/side effects after discussed. Inflectra given without difficulty. Pt instructed to notify physician or report to ED if there are any changes in their condition. Verbalized understanding. Pt dischargedhome. Next appt on 07/21/2023. documented in this encounter Plan of Treatment Upcoming Encounters Date Type Department Care Team (Late st Contact Info) Description 02/09/2024 11:00 AM MARITIME PILOT Appointment [address] [place] [address] Prabhjot Ryder MD [address] [facility] [address] [place] [address] Infusion 7[facility]isti 03/27/2024 10:20 AM MARITIME PILOT Office Visit [facility] Gastroenterology [facility] [address] [facility] [address] [place] [address] Prabhjot Ryder MD [address] [facility] [address] [place] [address] documented as of this encounter Procedures Procedure Name Priority Date/Time Associated Diagnosis Comments INFLIXIMAB LEVEL PANEL Routine 06/23/2023 10:47 AM CDT Crohn's disease of colon with other complication C-REACTIVE PROTEIN Routine 04/26/2023 12 :00 AM CDT Crohn's disease of colon with other complication documented in this encounter Results * INFLIXIMAB LEVEL PANEL (06/23/2023 10:47 AM CDT) INFLIXIMAB LEVEL, IBD 15.6 mcg/mL [facility], INFLIXIMAB AB, IBD <10 <10 AU [facility], INFLIXIMAB INTERPRETATION SEE NOTE [facility], Comment: The infliximab and infliximab anti-drug antibody [...] clinical equivalence studies, the FDA and the [place] [employer] advocate applying infliximab clinical guidance to the use of its biosimilars. The [place] [employer] recommends optimal infliximab trough concentration [...] treating healthcare professional should refer to the concrete buildings assembler's approved labeling for prescribing, warnings, side effects and other important information. INFLIXIMAB COMMENT SEE NOTE Q [employer]/ [facility], Comment: This test was developed and its analytical performance characteristics have been determined by [employer] [facility]. It has not been cleared or approved by FDA. This assay has been validated pursuant to the CLIA regulations and is used for clinical purposes. For additional information, please refer to https://education.Orad.Causecast/faq/PAR897 (This link is being provided for informational/educational purposes only.) ?Summary of Demographics Changes Patient demographics have changed. No other changes to any test results have been made. Date Maryjane updated to: 06/23/2023 Changed on: 06/27/2023 Test Performed at: [employer], [address] [place], [place] ??[address] Carlotta Herrera MD,PhD,MARIA INES Blood 06/23/2023 10:4 7 AM CDT 06/23/2023 8:51 PM CDT Prabhjot Ryder MD CHEMISTRY ORDERABLES Performing Organization Address City/[facility]/ZIP Co co Phone Number [facility] [phone] [facility], [address] [place] [address] * C-REACTIVE PROTEIN (04/26/2023 12:00 AM CDT) CRP <5.0 <8.0 mg/L [employer] Comment: Test Performed at: [employer] [address] [place], [place] ??[address] [facility] Blood 04/26/2023 06/23/2023 8:5 1 PM CDT Prabhjot Ryder MD CHEMISTRY ORDERABLES Performing Organization Address [facility]/ZIP [facility] Phone Number [facility] [phone] [employer] [place] [address] [place] [address] documented in this encounter Visit Diagnoses Diagnosis Crohn's disease of colon with other complication documented in this encounter Administered Medications Inactive Administered Medications - up to 3 most recent administrations Medication Order MAR Action Action Date Dose Rate Site acetaminophen (TYLENOL) tablet 975 mg 975 mg (rounded from 1,000 mg), Oral, ONE TIME ONLY, 1 dose, On Tue06/23/23 at 1100, Routine Given 06/23/2023 11:15 AM CDT 975 mg inFLIXimab-dyyb (INFLECTRA) 1,158 mg in sodium chloride 0.9% 500 mL IVPB 1,158 mg (10 mg/kg ? 115.8 kg), IV, ONE TIME ONLY, 1 dose, On Tue06/23/23 at 1100, Routine Rate Change 06/23/2023 1:15 PM CDT 500 mL/hr Rate Change 06/23/2023 12:44 PM CDT 300 mL/hr Rate Change 06/23/2023 12:29 PM CDT 160 mL/hr loratadine (CLARITIN) tablet 10 mg 10 mg, Oral, DAILY, First dose on Roxy 06/23/23 at 1100, Until Discontinued, Routine Given 06/23/2023 11:15 AM CDT 10 mg sodium chloride 0.9% infusion IV, at 30-999 mL/hr, CONTINUOUS, Starting on Roxy 06/23/23 at 1100, Until Tue06/24/23 at 0306, Routine Rate Change 06/23/2023 1:55 PM CDT 300 mL /hr New Bag 06/23/2023 11:17 AM CDT 30 mL 30 mL/hr documented in this encounter Care Teams Helper Metal Hanging Relationship Specialty Start Date End Date Mike Mitchell MD [address] [place] [address] PCP - General Family Practice 09/28/22 documented as of this encounter
--- OUTSIDE RECORDS SUMMARY | 2024-01-30 08:32 | XMS_ITS | Encounter Summary ---
Author Organization [facility] Address [address] [place] [address] Care Team Providers Care Tripe Scraper Name Role Phone Mike Mitchell MD Primary Care Provider [phone] [phone] Encounter Details Date Type Department Care Team (Late st Contact Info) Description 09/20/2023 External Device Data STL ABSTRACTION Provider, Abstract [...] st Contact Info) Description 02/09/2024 11:00 AM WORK CAR OPERATOR Appointment [address] [address] Prabhjot Ryder MD [address] [facility] [address] [place] [address] Infusion Misti 03/27/2024 10:20 AM WORK CAR OPERATOR Office Visit [facility] G[facility]ology [facility] [address] [facility] [address] [place] [address] Prabhjot Ryder MD [address] [facility] [address] [place] [address] documented as of this encounter Visit Diagnoses Not on filedocumented in this encounter Care Teams Tripe Scraper Relationship Specialty Start Date End Date Mike Mitchell MD [address] [place] [phone] PCP - General Family Practice 09/28/22 documented as of this encounter
--- OUTSIDE RECORDS SUMMARY | 2024-01-30 08:32 | XMS_ITS | Encounter Summary ---
Author Organization [facility] Address [address] [place] [address] Care Team Providers Care Livestock Haulier Name Role Phone Mike Mitchell MD Primary Care Provider +1 -[phone] Reason for Visit * Reason Onset Date Comments Results 06/21/2023 Encounter Details Date Type Department Care Team (Special Care Hospital Contact Info) Description 06/21/2023 Telephone [facility] Gastroenterology [facility] [address] [facility] [address] [place] [address] Prabhjot Ryder MD [address] [facility] [address] [place] [address] Results Social History Tobacco Use Types Packs/Day Years [...] (Late Contact Info) Description 02/09/2024 11:00 AM STAFF SCIENTIST Appointment [address] [address] Prabhjot Ryder MD [address] [employer] [facility] [address] [place] [address] Misti Tapia 03/27/2024 10:20 AM STAFF SCIENTIST Office Visit [facility] Gastroenterology [facility] [address] [facility] [address] [place] [address] Prabhjot Ryder MD [address] [facility] [address] [place] [address] documented as of this encounter Visit Diagnoses Diagnosis Proctitis- Primary Other specified disorder of rectum and anus documented in this encounter Care Teams Livestock Haulier Relationship Specialty Start Date End Date Mike Mitchell MD [address] [place] [address] PCP - General Family Practice 09/28/22 documented as of this encounter
--- OUTSIDE RECORDS SUMMARY | 2024-01-30 08:32 | XMS_ITS | Encounter Summary ---
Author Organization [facility] Address [address] [place] [address] Care Team Providers Care Jewelry Store Manager Name Role Phone Mike Mitchell MD Primary Care Provider [phone] [phone] Encounter Details Date Type Department Care Team (Late st Contact Info) Description 05/31/2023 External Device Data STL ABSTRACTION Provider, Abstract NO ADDRESS ON FILE Social History Tobacco Use Types Packs/Day Years Used Date Smoking Tobacco: Never Alcohol Use Standard Drinks/Week Comments Yes 0 (1 standard drink = 0.6 oz pur e alcohol) socially Sex and Gender Information Value Date Recorded Sex Assigned at Not on file Gender Identity Not on file Sexual Orientation Not on file documented as of this encounter Plan of Treatment Upcoming Encounters Date Type Department Care Team (Late st Contact Info) Description 02/09/2024 11:00 AM SUBSTANCE ABUSE SERVICES DIRECTOR Appointment [address] [address] Prabhjot Ryder MD [address] [facility] [address] [place] [address] [place] [address] 03/27/2024 10:20 AM SUBSTANCE ABUSE SERVICES DIRECTOR Office Visit [facility] Gastro[facility]ology [facility] [address] [facility] [address] [place] [address] Prabhjot Ryder MD [address] [facility] [address] [place] [address] documented as of this encounter Visit Diagnoses Not on filedocumented in this encounter Care Teams Jewelry Store Manager Relationship Specialty Start Date End Date Mike Mitchell MD [address] [place] [address] PCP - General Family Practice 09/28/22 documented as of this encounter
--- OUTSIDE RECORDS SUMMARY | 2024-01-30 08:32 | XMS_ITS | Encounter Summary ---
Author Organization [facility] Address [address] [place] [address] Care Team Providers Care Foreign Exchange Student Coordinator Name Role Phone Mike Mitchell MD Primary Care Provider [phone] [phone] Reason for Visit * Outpatient Services (Routine) - Authorized Specialty Diagnoses / Procedures Referred By Contact Referred To Contact Hematology and Oncology Diagnoses Crohn's disease of colon with other complication Procedures INFUSION THERAPY NC INJECTION, INFLECTRA NC METHYLPREDNISOLONE INJECTION NC DIPHENHYDRAMINE HCL INJECTIO Inflectra, SoluMedrol, Benadryl Prabhjot Ryder MD [address] [place] [address] [facility] [address] [facility] [address] [place] [address] Referral ID Status Reason Start Date Expiration Date V isits Requested Visits Authorized [id number] Authorized 04/12/2023 05/03/2024 12 12 Encounter Details Date Type Department Care Team (Latest Contact Info) Description 07/21/2023 10:38 AM CDT - 07/21/2023 11:59 PM CDT Hospital Encounter [facility] [address] [facility] [address] [place] [address] Prabhjot Ryder MD [address] [place] [address] Infusion 2, [place] Discharge Disposition: Home or Self Care Social [...] Sign Reading Time Taken Comments Blood Pressure - - Pulse - - Temperature - - Respiratory Rate - - Oxygen Saturation - - Inhaled Oxygen Concentration - - Weight 115.9 kg (255 lb 8 oz) 07/21/2023 10:41 A M CDT Height - - Body Mass Index 34.65 06/06/2023 7:41 AM CDT documented in this [...] daily at bedtime. 30 Suppository 5 06/21/2023 4 sodium chloride 0.9% Parenteral Solution 250 mL with inFLIXimab 100 mg Recon Soln 10 mg Inject 10 mg by intravenous injection one time only. Every 6 wks 4 documented as of this encounter Progress Notes * Bridgette Grant RN - 07/21/2023 11:00 AM CDT Kris Spence admitted to [facility] for infusion. Denies questions about medication/side effects as well as active infection. TB test negative within the last 12 months. Inflectra titrated per protocol and pt tolerated without difficulty/reaction. Pt instructed to notify physician orgo to ED if there are any changes in their condition. Verbalized understanding. Discharged home. Next appointment is scheduled on 08/18/2023. documented in this encounter Plan of Treatment Upcoming Encounters Date Type Department Care Team (Late st Contact Info) Description 02/09/2024 11:00 AM PREVENTIVE MEDICINE PHYSICIAN Appointment [address] [address] Prabhjot Ryder MD [address] [facility] [address] [place] [address] Infusion [facility] 03/27/2024 10:20 AM PREVENTIVE MEDICINE PHYSICIAN Office [facility] Gastroenterology [facility] [address] [facility] [address] [place] [address] Prabhjot Ryder MD [address] [facility] [address] [place] [address] documented as of this encounter Visit Diagnoses Not on filedocumented in this encounter Administered Medications Inactive Administered Medications - up to 3 most recent administrations Medication Order MAR Action Action Date Dose Rate Site acetaminophen (TYLENOL) tablet 975 mg 975 mg (rounded from 1,000 mg), Oral, ONE TIME ONLY, 1 dose, On Roxy 07/21/23 at 1045, Routine Given 07/21/2023 10:49 AM CDT 975 mg inFLIXimab-dyyb (INFLECTRA) 1,159 mg in sodium chloride 0.9% 500 mL IVPB 1,159 mg (10 mg/kg ? 115.9 kg), IV, ONE TIME ONLY, 1 dose, On Roxy 07/21/23 at 1100, Routine Rate Change 07/21/2023 1:05 PM CDT 500 mL/hr Rate Change 07/21/2023 12:34 PM CDT 300 mL/hr Rate Change 07/21/2023 12:19 PM CDT 160 mL/hr loratadine (CLARITIN) tablet 10 mg 10 mg, Oral, DAILY, First dose on Roxy 07/21/23 at 1045, Until Discontinued, Routine Given 07/21/2023 10:49 AM CDT 10 mg sodium chloride 0.9% infusion IV, at 30-999 mL/hr, CONTINUOUS, Starting on Roxy 07/21/23 at 1045, Until Tue07/22/23 at 0307, Routine Rate Change 07/21/2023 1:47 PM CDT 300 mL /hr New Bag 07/21/2023 11:01 AM CDT 30 mL/hr documented in this encounter Care Teams Foreign Exchange Student Coordinator Relationship Specialty Start Date End Date Mike Mitchell MD [address] [place] [phone] PCP - General Family Practice 09/28/22 documented as of this encounter
--- OUTSIDE RECORDS SUMMARY | 2024-01-30 08:32 | XMS_ITS | Encounter Summary ---
Author Organization [facility] Address [address] [place] [address] Care Team Providers Care Ui Lead Developer Name Role Phone Mike Mitchell MD Primary Care Provider [phone] [phone] Reason for Visit * Auth/Cert (Routine) Specialty Diagnoses / Procedures Referred By Roberto moura Referred To Contact Perioperative Diagnoses Crohn's disease of colon with other complication Procedures NC COLONOSCOPY FLX DX W/COLLJ SPEC WHEN PFRMD CHECKOUT COLONOSCOPY Prabhjot Ryder MD [address] [facility] [address] [place] [address] [facility] [address] [place] [address] Referral ID Status Reason Start Date Expiration Date Visits Re quested Visits Authorized [id number] 1 1 Encounter Details Date Type Department Care Team (Late st Contact Info) Description 06/06/2023 7:57 AM CDT Anesthesia Event [facility] [address] [place] [address] Elissa Montelongo MD [address] [place] [address] Anesthesia Record Procedure Summary Procedure Name Responsible Anesthesiologist Anesthesia Start Time Anesthesia Stop Time POUCHOSCOPY (Anus) Elissa Montelongo MD 06/06/23 0757 0834 Events Date Time Event Comment 06/06/2023 0755 0755 AN Equip Check Anesthesia eq uipment and materials checked in accordance with local policy. 0757 In Room This event disp lays the In Room time documented in the Surgical Log. Deleting this event will not remove it from the log but will remove it from the Grid and Graph timeline. 0757 An Start 0757 An Start Data 0759 Pre-Induction Immediate pre- induction anesthetic assessment performed. Vital signs as noted on graphic. 0802 An Induction 0803 Anesthesia Ready 0804 Procedure Start This event d isplays the Procedure Start time documented in the Surgical Log. Deleting this event will not remove it from the log but will remove it from the Grid and Graph timeline. 0828 Procedure Stop This event di splays the Procedure Stop time documented in the Surgical Log. Deleting this event will not remove it from the log but will remove it from the Grid and Graph timeline. 0829 an stop data 0834 Hand-off to Receiving [facility] Post-Anesthetic transfer of care report elements to appropriate post-anesthesia recovery environment completed in accordance with procedure. 0834 An Stop 0834 Out of Room This event disp lays the Out of Room time documented in the Surgical Log. Deleting this event will not remove it from the log but will remove it from the Grid and Graph timeline. Meds Name Total lidocaine (XYLOCAINE) 2% injection 60 mg propofol (DIPRIVAN) 10??mg/mL injection 300 mg lactated ringers infusion 0 mL * Agents Name Air * Blood No blood administrations on file. Lines, Drains, and Airways Type Details Placement Removal Peripheral IV Pre-Hospital Start: No; Orientation: Posterior, Right; Location: Hand; Device: Angiocath; Gauge: 20 gauge; Insertion Attempts: 1 (KA); Patient Tolerance: tolerated well 06/06/23 0744 by Jennyfer Ramos RN 06/06/23 0837 by Jade Pena RN Supraglottic Airway Type: nasal cannula; Confirmation: end tidal CO2, satisfactory chest rise 06/06/23 0755 by Elissa Montelongo MD 06/06/23 0837 by Jade Pena, RN documented in this encounter Social History [...] OR Notes * Anesthesia Postprocedure Evaluation - Elissa Montelongo MD - 06/06/2023 8:58 AM CDT Post Anesthesia Evaluation Vitals: Vitals Value Taken Time BP 139/88 06/06/23 0843 Temp 36.7 ??C 06/06/23 0836 Resp 16 06/06/23 0843 SpO2 100 % 06/06/23 0843 Pulse 72 06/06/23 0843 Heart Rate 72 bpm 06/06/23 0843 Pain Rating: Anesthesia Post Evaluation Patient location during evaluation: PACU Patient participation: patient was able to participate in the post op evaluation Level of consciousness: 0 = alert, responsive, answers simple questions appropriately, able to perform simple tasks (age appropriate or baseline) Pain management: adequate Airway patency: patent Nausea or Vomiting: none Cardiovascular status: regular rate and rhythm Respiratory status: no respiratory symptoms Hydration status: well hydrated No notable events documented. Elissa Montelongo MD * Anesthesia Handoff - Elissa Montelongo MD - 06/06/2023 8:58 AM CDT Post-Anesthetic transfer of care report elements to [...] Vital Signs: Vitals Value Taken Time BP 139/88 06/06/23 0843 Temp 36.7 ??C 06/06/23 0836 Resp 16 06/06/23 0843 SpO2 100 % 06/06/23 0843 Pulse 72 06/06/23 0843 Heart Rate 72 bpm 06/06/23 0843 8:58 AM Elissa Montelongo MD * Anesthesia Preprocedure Evaluation - Elissa Montelongo MD - 06/06/2023 7:54 AM CDT Images from the original note were not included. Relevant Problems No relevant active problems Anesthesia Evaluation Patient summary reviewed Airway Mallampati: II TM distance: >3 FB Neck ROM: full Dental - normal exam Pulmonary - negative ROS breath sounds clear to auscultation Cardiovascular Exercise tolerance: good Rhythm: regular Rate: normal Neuro/Psych - negative ROS GI/Hepatic/Renal (+) PUD, liver disease Endo/Other - negative ROS Abdominal Anesthesia History Anesthesia Plan ASA Final: 2 General Intravenous induction Mask airway maintenance NPO status > 8 hours Anesthetic plan and risks discussed with Patient. Plan discussed with Surgeon/Proceduralists. Post-op Pain Control Plan to use IV or IM medication for post-op pain control. Smoking Compliance patient did not smoke on day of surgery documented in this encounter Plan of Treatment Upcoming Encounters Date Type Department Care Team (Late st Contact Info) Description 02/09/2024 11:00 AM FLEA MARKET SELLER Appointment [address] [address] Prabhjot Ryder MD [address] [place] [address] [place] [address] Infusion [facility] [place] 03/27/2024 10:20 AM FLEA MARKET SELLER Office Visit [facility] Gastroenterology [facility] [address] [facility] [address] [place] [address] Prabhjot Ryder MD [address] [facility] [address] [place] [address] documented as of this encounter [...] Bag 06/06/2023 7:45 AM CDT 125 mL/hr lidocaine 2 % (XYLOCAINE) injection IV, INTRA-PROCEDURE PRN, Starting on Tue06/06/23 at 0802, Until Tue06/06/23 at 0834, Routine, Anesthesia Intra-op Given 06/06/2023 8:02 AM CDT 60 mg propofoL (DIPRIVAN) injection IV, INTRA-PROCEDURE PRN, Starting on Tue06/06/23 at 0801, Until Tue06/06/23 at 0834, Anesthesia Intra-op Bolus 06/06/2023 8:24 AM CDT 30 mg Bolus 06/06/2023 8:19 AM CDT 50 mg Bolus 06/06/2023 8:12 AM CDT 50 mg documented in this encounter Care Teams Ui Lead Developer Relationship Specialty Start Date End Date Mike Mitchell MD [address] [place] [address] PCP - General Family Practice 09/28/22 documented as of this encounter
--- OUTSIDE RECORDS SUMMARY | 2024-01-30 08:32 | XMS_ITS | Encounter Summary ---
Author Organization [facility] Address [address] [place] [address] Care Team Providers Care Home Health Lpn Name Role Phone Mike Mitchell MD Primary Care Provider [phone] Reason for Visit * Outpatient Services (Routine) - Authorized Specialty Diagnoses / Procedures Referred By Contact Referred To Contact Hematology and Oncology Diagnoses Crohn's disease of colon with other complication Procedures INFUSION THERAPY HI INJECTION, INFLECTRA HI METHYLPREDNISOLONE INJECTION HI DIPHENHYDRAMINE HCL INJECTIO Inflectra, SoluMedrol, Benadryl Prabhjot Ryder MD [address] [place] [address] [facility] [address] [facility] [address] [place] [address] Referral ID Status Reason Start Date Expiration Date V isits Requested Visits Authorized [id number] Authorized 04/12/2023 05/03/2024 12 12 Encounter Details Date Type Department Care Team (Latest Contact Info) Description 09/15/2023 10:47 AM CDT - 09/15/2023 11:59 PM CDT Hospital Encounter [facility] [address] [facility] [address] [place] [address] Prabhjot Ryder MD [address] [place] [address] Infusion 9, [place] Discharge Disposition: Home or Self Care Social [...] Sign Reading Time Taken Comments Blood Pressure 159/84 09/15/2023 10:51 AM CDT Pulse 82 09/15/2023 10:51 AM CDT Temperature 37.2 ??C (98.9 ??F) 09/15/2023 10:50 AM C DT Respiratory Rate 16 09/15/2023 10:50 AM CDT Oxygen Saturation - - Inhaled Oxygen Concentration - - Weight 115.7 kg (255 lb) 09/15/2023 10:47 AM CDT Height - - Body Mass Index 34.58 06/06/2023 7:41 AM CDT documented in this [...] Progress Notes * Charity Downs RN - 09/15/2023 11:00 AM CDT Ok to infuse today per Dr. Ryder. Pt is on antibiotics for ear infection drops and a oral pill. * Charity Downs RN - 09/15/2023 11:00 AM CDT Kris Spence admitted to [facility] for infusion. Denies questions about medication/side [...] st Contact Info) Description 02/09/2024 11:00 AM SR. STRATEGIC SOURCING MANAGER Appointment [facility] [address] [address] Prabhjot Ryder MD [address] [facility] [address] [place] [address] Infusion [facility] 03/27/2024 10:20 AM SR. STRATEGIC SOURCING MANAGER Office Visit [facility] Gastroenterology [place] [address] [facility] [address] [place] [address] Prabhjot Ryder MD [address] [facility] [address] [place] [address] documented as of this encounter Visit Diagnoses Not on filedocumented in this encounter Administered Medications Inactive Administered Medications - up to 3 most recent administrations Medication Order MAR Action Action Date Dose Rate Site acetaminophen (TYLENOL) tablet 975 mg 975 mg (rounded from 1,000 mg), Oral, ONE TIME ONLY, 1 dose, On Roxy 09/15/23 at 1100, Routine Given 09/15/2023 11:05 AM CDT 975 mg inFLIXimab-dyyb (INFLECTRA) 1,100 mg in sodium chloride 0.9% 500 mL IVPB 1,100 mg, IV, ONE TIME ONLY, 1 dose, On Roxy 09/15/23 at 1100, Routine New Bag 09/15/2023 11:23 AM CDT 1,100 mg 20 mL/hr loratadine (CLARITIN) tablet 10 mg 10 mg, Oral, ONE TIME ONLY, 1 dose, On Roxy 09/15/23 at 1100, Routine Given 09/15/2023 11:05 AM CDT 10 mg sodium chloride 0.9% infusion IV, at 30 mL/hr, CONTINUOUS, Starting on Roxy 09/15/23 at 1100, Until Roxy 09/15/23 at 1559, Routine New Bag 09/15/2023 11:02 AM CDT 30 mL/hr documented in this encounter Care Teams Home Health Lpn Relationship Specialty Start Date End Date Mike Mitchell MD [address] [place] [address] PCP - General Family Practice 09/28/22 documented as of this encounter
--- OUTSIDE RECORDS SUMMARY | 2024-01-30 08:32 | XMS_ITS | Encounter Summary ---
Author Organization [facility] Address [address] [place] [address] Care Team Providers Care Mechanical Expert Name Role Phone Mike Mitchell MD Primary Care Provider [phone] [phone] Reason for Visit * Auth/Cert (Routine) Specialty Diagnoses / Procedures Referred By Roberto moura Referred To Contact Perioperative Diagnoses Crohn's disease of colon with other complication Procedures DC COLONOSCOPY FLX DX W/COLLJ SPEC WHEN PFRMD CHECKOUT COLONOSCOPY Prabhjot Ryder MD [address] [place] [address] [facility] [address] [place] [address] Referral ID Status Reason Start Date Expiration Date Visits Re quested Visits Authorized [id number] 1 1 Encounter Details Date Type Department Care Team (Latest Contact Info) Description 06/06/2023 7:24 AM CDT - 06/06/2023 9:01 AM CDT Hospital Encounter [facility] Endoscopy [facility] [address] [place] [address] Prabhjot Ryder MD [address] [place] [address] Crohn's disease of colon with [...] Ryder MD - 06/06/2023 7:59 AM CDT [facility] Pre-Endoscopy History & Physical Date: 06/06/2023 Patient: Kris Powers Defauw / 63 y.o. / male : 1960 CSN: [id number] Planned procedure: pouchoscopy Chief Complaint: pouchoscopy for [...] scheduled. Prabhjot Ryder M.D. Department of Gastroenterology [facility] documented in this encounter Procedure Notes * Prabhjot Ryder MD - 06/06/2023 8:44 AM CDTAssociated Order(s): POUCHOSCOPY REPORT [facility] Endoscopy Patient Name: Kris Spence Procedure Date: 06/06/2023 Date of : 1960 Age: 63 Attending MD: Prabhjot Ryder MD, Procedure: Pouchoscopy Indications: Disease activity assessment of Crohn's disease of the small bowel and colon Patient Profile: 63y/oM here for pouchoscopy, disease activity assessment for crohn's based on increased infliximab dosing to 10mg/kg [id number] in 10/2022. Improved symptoms, decreased urgency. Providers: [...] signed electronically. Number of Addenda: [address] [address] documented in this encounter OR Notes * [...] from the original note were not included. [facility] IMELDA Routine Pre-Anesthesia Protocol for GI Lab Procedures [facility] Approved by: [facility]-Medical Executive Committee Approval Date: 03/24/2023 ORDERS ARE ENTERED ???PER PROTOCOL?? Enter the protocol in the patient???s electronic health record using [employer]: .anestprotocolgilab Nursing Orders: Monitoring Obtain and record vital signs [facility] Continuous vital signs (Non-invasive blood pressure, pulse [...] appropriate, may confirm POC with: Nursing Only [id number] (this lab can be obtained at no cost to the patient when confirming a critical high or Critical low POC glucose. See hypoglycemia protocol for additional orders if needed: [facility] ANE Adult Perianesthesia HYPOglycemia Protocol Notify any provider [...] unable to obtain urine, may obtain serum [id number]) All patients with potential for childbearing (menarche [...] st Contact Info) Description 02/09/2024 11:00 AM MATERIAL CARRIER Appointment [address] [place] [address] Prabhjot Ryder MD [address] [facility] [address] [place] [address] Infusion [facility] [place] 03/27/2024 10:20 AM MATERIAL CARRIER Office Visit [facility] Gastroenterology [place] [address] [facility] [address] [place] [address] Prabhjot Ryder MD [address] [facility] [address] [place] [address] documented as of this encounter Procedures Procedure Name Priority Date/Time Associated Diagnosis Comments POUCHOSCOPY REPORT 06/06/2023 8: 44 AM CDT DC NDSC EVAL INTSTINAL POUCH W/BX SINGLE/MULTIPLE 06/06/2023 [...] Ryder MD - 06/06/2023 8:44 AM CDT [facility] Endoscopy Patient Name: Kris Spence Procedure Date: 06/06/2023 Date of : 1960 Age: 63 Attending MD: Prabhjot Ryder MD, Procedure: Pouchoscopy Indications: Disease activity assessment of Crohn's disease of the small bowel and colon Patient Profile: 63y/oM here for pouchoscopy, disease activity assessment for crohn's based on increased infliximab dosing to 10mg/kg [id number] in 10/2022. Improved symptoms, decreased urgency. Providers: [...] signed electronically. Number of Addenda: 0 [address] [place] [address] Prabhjot Ryder MD GI PROCEDURE ORDERAB LES * PATHOLOGY (06/06/2023 8:19 AM CDT) CASE REPORT Surgical Pathology Report ? Case: [id number] ? Authorizing Provider: ??rPabhjot Ryder MD ?Collected: ? 06/06/2023 08:19 AM ? Ordering Location: ? [facility] Endoscopy ?? Received: ?06/07/2023 07:51 AM ? [facility] ? Pathologist: ? Jose Juan, Luke Mckeon, ? MD ? Specimens: ?? A) - Small Intestine, afferent ileum bx ? B) - Small Intestine, afferent ileum polyp ? C) - Rectum, rectal cuff ulcer bx ? 06/07/ 4 4:28 PM CDT [facility] FINAL DIAGNOSIS A. Small intestine, biopsy: - Small bowel mucosa with moderate active inflammation B. Ileum, polypectomy: - Inflammatory pseudopolyp - Negative for dysplasia C. Rectal cuff, ulcer, biopsy: - Severe chronic active proctitis 4 4:28 PM [facility] S DESCRIPTION The specimens are received in [...] dimension. All are submitted in cassette C1. [facility] 4:28 PM [facility] MICROSCOPIC DESCRIPTION The slides are labeled [id number] and Kris Spence. A. Sections show small [...] dropout. Negative for dysplasia. 4 4:28 PM [facility] OPERATIVE PROCEDURE 1: POUCHOSCOPY 4 4:28 PM [facility] CLINICAL INFORMATION A R/o Crohn's R/o Crohn's Crohn's disease of colon with other complication [K50.118] K50.118-Crohn's disease of colon with other complication 4:28 PM CDT [facility] COMMENT Special stain, immunohistochemical, and/or in situ hybridization results are interpreted with controls that demonstrate appropriate staining reactions. Note on use of immunohistochemistry reagents and in situ hybridization probes: These tests were developed and their performance characteristics determined by [facility] Department of Laboratory Medicine. It has not [...] part or completely in the following laboratories: [facility], CLIA #[id number] [address] [place] [address] [facility], CLIA #[id number] [address] [place] [address] [facility], [place] #[id number] [address] [place] [address] This report was created with the [employer] voice-activated dictation system. Inherent to this system is the possibility of syntax, grammar, punctuation and other errors that could impact the interpretation of the report. If there are interpretative questions about aspects of this report, please contact the performing pathologist. 4:28 PM CDT [facility] Tissue (Small Intestine) Collection / Unknown 06/06/2023 8:19 AM CDT 06/07/2023 7:51 AM CDT Comment:R/o Crohn's Tissue specimen (specimen) (Small Intestine) Collection / Unknown 06/06/2023 8:19 AM CDT 06/07/2023 7:51 AM CDT Tissue specimen (specimen) ENTIRE RECTUM / Unknown 06/06/2023 8:26 AM CDT 06/07/2023 7:51 AM CDT Comment:R/o dysplasia Prabhjot Ryder MD PATHOLOGY/CYTOLOGY O RDERABLES [facility]# [id number] [address] [place] [address] documented in this encounter Visit Diagnoses Diagnosis [...] RN) documented in this encounter Care Teams Mechanical Expert Relationship Specialty Start Date End Date Mike Mitchell MD [address] [place] [address] PCP - General Family Practice 09/28/22 documented as of this encounter
--- OUTSIDE RECORDS SUMMARY | 2024-01-30 08:32 | XMS_ITS | Encounter Summary ---
Author Organization [facility] Address [address] [place] [address] Care Team Providers Care Nailer Machine Name Role Phone Mike Mitchell MD Primary Care Provider [phone] Reason for Visit * Outpatient Services (Routine) - Authorized Specialty Diagnoses / Procedures Referred By Contact Referred To Contact Hematology and Oncology Diagnoses Crohn's disease of colon with other complication Procedures INFUSION THERAPY ID INJECTION, INFLECTRA ID METHYLPREDNISOLONE INJECTION ID DIPHENHYDRAMINE HCL INJECTIO Inflectra, SoluMedrol, Benadryl Prabhjot Ryder MD [address] [place] [address] [facility] [address] [facility] [address] [place] [address] Referral ID Status Reason Start Date Expiration Date V isits Requested Visits Authorized [id number] Authorized 04/12/2023 05/03/2024 12 12 Encounter Details Date Type Department Care Team (Latest Contact Info) Description 10/13/2023 11:00 AM CDT - 10/13/2023 11:59 PM CDT Hospital Encounter [facility] [address] [facility] [address] [place] [address] Prabhjot Ryder MD [address] [place] [address] Infusion 9, [place] Discharge Disposition: Home or Self Care Social [...] Sign Reading Time Taken Comments Blood Pressure 153/90 10/13/2023 10:55 AM CDT Pulse 70 10/13/2023 10:55 AM CDT Temperature 37.2 ??C (99 ??F) 10/13/2023 10:55 AM CDT Respiratory Rate 18 10/13/2023 10:55 AM CDT Oxygen Saturation - - Inhaled Oxygen Concentration - - Weight 114.2 kg (251 lb 12 oz) 10/13/2023 10:45 AM CDT Height - - Body Mass Index 34.14 06/06/2023 7:41 AM CDT documented in this [...] Progress Notes * Bridgette Grant RN - 10/13/2023 11:00 AM CDT Kris Spence admitted to [facility] for infusion. Denies questions about medication/side effects as well as active infection. TB test negative within the last 12 months. Inflectra titrated per protocol and pt tolerated without difficulty/reaction. Pt instructed to notify physician orgo to ED if there are any changes in their condition. Verbalized understanding. Discharged home. Pt is scheduled for next appt on 11/10/23. documented in this encounter Miscellaneous Notes * Treatment Plan - Bridgette Grant RN - 10/13/2023 11:00 AM CDT Images from the original note were not included. [facility] INFCTR IV Flush Protocol [facility] Approved by: [facility] - Medical Executive Committee Approval Date: 05/27/2022 ORDERS ARE ENTERED ???PER PROTOCOL?? Enter the protocol in the patient's electronic health record using [employer] .flushprotocolinfusioncenteradult Central Venous Catheter occlusion therapy Alteplase [...] KVO(30 mL/hr) to minimize frequent line interruption documented in this encounter Plan of Treatment Upcoming Encounters Date Type Department Care Team (Late st Contact Info) Description 02/09/2024 11:00 AM LEVEL DESIGNER Appointment [address] [place] [address] Prabhjot Ryder MD [address] [facility] [address] [place] [address] Infusion [facility] [place] 03/27/2024 10:20 AM LEVEL DESIGNER Office Visit [facility] Gastroenterology [facility] [address] [facility] [address] [place] [address] Prabhjot Ryder MD [address] [place], [place] [address] [place] [address] documented as of this encounter Visit Diagnoses Not on filedocumented in this encounter Administered Medications Inactive Administered Medications - up to 3 most recent administrations Medication Order MAR Action Action Date Dose Rate Site acetaminophen (TYLENOL) tablet 975 mg 975 mg (rounded from 1,000 mg), Oral, ONE TIME ONLY, 1 dose, On Roxy 10/13/23 at 1100, Routine Given 10/13/2023 11:10 AM CDT 975 mg inFLIXimab-dyyb (INFLECTRA) 1,100 mg in sodium chloride 0.9% 500 mL IVPB 1,100 mg, IV, ONE TIME ONLY, 1 dose, On Roxy 10/13/23 at 1100, Routine Rate Change 10/13/2023 1:16 PM CDT 400 mL/hr Rate Change 10/13/2023 12:45 PM CDT 300 mL/hr Rate Change 10/13/2023 12:30 PM CDT 160 mL/hr loratadine (CLARITIN) tablet 10 mg 10 mg, Oral, ONE TIME ONLY, 1 dose, On Roxy 10/13/23 at 1100, Routine Given 10/13/2023 11:11 AM CDT 10 mg sodium chloride 0.9% infusion IV, at 30-999 mL/hr, CONTINUOUS, Starting on Roxy 10/13/23 at 1100, Until Tue10/14/23 at 0307, Routine Rate Change 10/13/2023 2:07 PM CDT 300 mL/ hr New Bag 10/13/2023 11:43 AM CDT 30 mL/hr documented in this encounter Care Teams Nailer Machine Relationship Specialty Start Date End Date Mike Mitchell MD [address] [place] [phone] PCP - General Family Practice 09/28/22 documented as of this encounter
--- OUTSIDE RECORDS SUMMARY | 2024-01-30 08:32 | XMS_ITS | Encounter Summary ---
Author Organization [facility] Address [address] [place] [address] Care Team Providers Care Professional Healthcare Representative Name Role Phone Mike Mitchell MD Primary Care Provider +1 [phone] Encounter Details Date Type Department Care Team [...] st Contact Info) Description 02/09/2024 11:00 AM CREW CLERK Appointment [address] [phone] Prabhjot Ryder MD [address] [facility] [address] [place] [address] Infusion Misti 03/27/2024 10:20 AM CREW CLERK Office Visit [facility] Gastroenterology [facility] [address] [facility] [address] [place] [address] Prabhjot Ryder MD [address] [facility] [address] [place] [address] documented as of this encounter Visit Diagnoses Not on filedocumented in this encounter Care Teams Professional Healthcare Representative Relationship Specialty Start Date End Date Mike Mitchell MD [address] [place] [phone] PCP - General Family Practice 09/28/22 documented as of this encounter
--- OUTSIDE RECORDS SUMMARY | 2024-01-30 08:32 | XMS_ITS | Encounter Summary ---
Author Organization [facility] Address [address] [place] [address] Care Team Providers Care Brand Coordinator Name Role Phone Mike Mitchell MD Primary Care Provider +1 [phone] Encounter Details Date Type Department Care Team (Late st Contact Info) Description 05/25/2023 External Device Data STL ABSTRACTION Provider, Abstract [...] st Contact Info) Description 02/09/2024 11:00 AM BEAM SEALER Appointment [address] [address] Prabhjot Ryder MD [address] [facility] [address] [place] [address] [place] [address] 03/27/2024 10:20 AM BEAM SEALER Office Visit [facility] G[facility]ology [facility] [address] [facility] [address] [place] [address] Prabhjot Ryder MD [address] [facility] [address] [place] [address] documented as of this encounter Visit Diagnoses Not on filedocumented in this encounter Care Teams Brand Coordinator Relationship Specialty Start Date End Date Mike Mitchell MD [address] [place] [address] PCP - General Family Practice 09/28/22 documented as of this encounter
--- OUTSIDE RECORDS SUMMARY | 2024-01-30 08:33 | XMS_ITS | Encounter Summary ---
Author Organization [facility] Address [address] [place] [address] Care Team Providers Care Epic Manager Name Role Phone Mike Mitchell MD Primary Care Provider [phone] [phone] Reason for Visit * Reason Comments Med Refill Encounter Details Date Type Department Care Team (Late Contact Info) Description 03/06/2023 Refill [facility] Gastroenterology [facility] [address] [facility] [address] [place] [address] Prabhjot Ryder MD [address] [facility] [address] [place] [address] Social History Tobacco Use Types [...] encounter Miscellaneous Notes * Telephone Encounter - Kishore Tobias RN - 03/07/2023 9:47 AM CST Was sent on 02/17/23 with 2 refills. Please contact the pharmacy VERY ASSISTANT documented in this encounter Plan of Treatment Upcoming Encounters Date Type Department Care Team (Late Contact Info) Description 02/09/2024 11:00 AM DELIVERY ASSISTANT Appointment [address] [phone] Prabhjot Ryder MD [address] [facility] [address] [place] [address] Misti Tapia 03/27/2024 10:20 AM DELIVERY ASSISTANT Office Visit [facility] Gastroenterology [facility] [address] [facility] [address] [place] [address] Prabhjot Ryder MD [address] [facility] [address] [place] [address] documented as of this encounter Visit Diagnoses Not on filedocumented in this encounter Care Teams Epic Manager Relationship Specialty Start Date End Date Mike Mitchell MD [address] [address] PCP - General Family Practice 09/28/22 documented as of this encounter
--- OUTSIDE RECORDS SUMMARY | 2024-01-30 08:33 | XMS_ITS | Encounter Summary ---
Author Organization [facility] Address [address] [place] [address] Care Team Providers Care Director Of Loss Prevention Name Role Phone Mike Mitchell MD Primary Care Provider [phone] [phone] Reason for Visit * Reason Onset Date Comments Medication Refill 01/05/2023 Encounter Details Date Type Department Care Team (Late st Contact Info) Description 01/03/2023 Refill [facility] Gastroenterology [facility] [address] [facility] [address] [place] [address] Prabhjot Ryder MD [address] [facility] [address] [place] [address] Social History Tobacco Use Types Packs/Day Years Used Date Smoking Tobacco: Never Assessed Sex and Gender Information Value Date Recorded Sex Assigned at Not on file Gender Identity Not on file Sexual Orientation Not on file documented as of this encounter Miscellaneous Notes * Telephone Encounter - Kishore Tobias RN - 01/03/2023 11:10 AM CST NOE 10/26/22 ROV 01/25/23 Previous script was from [facility] GI BILITATION CLERK documented in this encounter Plan of Treatment Upcoming Encounters Date Type Department Care Team (Late st Contact Info) Description 02/09/2024 11:00 AM REHABILITATION CLERK Appointment [address] [phone] Prabhjot Ryder MD [address] [facility] [address] [place] [address] Misti Tapia 03/27/2024 10:20 AM REHABILITATION CLERK Office Visit [facility] Gastroenterology [facility] [address] [facility] [address] [place] [address] Prabhjot Ryder MD [address] [facility] [address] [place] [address] documented as of this encounter Visit Diagnoses Not on filedocumented in this encounter Care Teams Director Of Loss Prevention Relationship Specialty Start Date End Date Mike Mitchell MD [address] [place] [phone] PCP - General Family Practice 09/28/22 documented as of this encounter
--- OUTSIDE RECORDS SUMMARY | 2024-01-30 08:33 | XMS_ITS | Encounter Summary ---
Author Organization [facility] Address [address] [facility] Attn: [place] [address] Care Team Providers Care Color Blender Name Role Phone Mike Mtichell MD Primary Care Provider [phone] [phone] Encounter Details Date Type Department Care Team (Latest Contact Info) Description 11/25/2022 Travel Social History Tobacco Use Types Packs/Day Years Used Date Smoking Tobacco: Never Assessed Sex and Gender Information Value Date Recorded Sex Assigned at Not on file Gender Identity Not on file Sexual Orientation Not on file documented as of this encounter Plan of Treatment Upcoming Encounters Date Type Department Care Team (Late st Contact Info) Description 02/09/2024 11:00 AM RESIDENTIAL SALES REP Appointment [address] [address] Prabhjot Ryder MD [address] [facility] [address] [place] [address] 03/27/2024 10:20 AM RESIDENTIAL SALES REP Office Visit [facility] Gastroenterology [facility] [address] [facility] [address] [place] [address] Prabhjot Ryder MD [address] [facility] [address] [place] [address] documented as of this encounter Visit Diagnoses Not on filedocumented in this encounter Care Teams Color Blender Relationship Specialty Start Date End Date Mike Mitchell MD [address] [place] [phone] PCP - General Family Practice 09/28/22 documented as of this encounter
--- OUTSIDE RECORDS SUMMARY | 2024-01-30 08:33 | XMS_ITS | Encounter Summary ---
Author Organization [facility] Address [address] [place] [address] Care Team Providers Care Floor Molder Name Role Phone Mike Mitchell MD Primary Care Provider [phone] [phone] Reason for Visit * Reason Comments Med Refill Encounter Details Date Type Department Care Team (Late Contact Info) Description 02/17/2023 Refill [facility] Gastroenterology [facility] [address] [facility] [address] [place] [address] Prabhjot Ryder MD [address] [facility] [address] [place] [address] Social History Tobacco Use Types [...] (Late Contact Info) Description 02/09/2024 11:00 AM THERAPIST'S ASSISTANT Appointment [address] [phone] Prabhjot Ryder MD [address] [facility] [address] [place] [address] Misti Tapia 03/27/2024 10:20 AM THERAPIST'S ASSISTANT Office Visit [facility] Gastroenterology [facility] [address] [facility] [address] [place] [address] Prabhjot Ryder MD [address] [place] [address] documented as of this encounter Visit Diagnoses Not on filedocumented in this encounter Care Teams Floor Molder Relationship Specialty Start Date End Date Mike Mitchell MD [address] [place] [address] PCP - General Family Practice 09/28/22 documented as of this encounter
--- OUTSIDE RECORDS SUMMARY | 2024-01-30 08:33 | XMS_ITS | Encounter Summary ---
Author Organization [facility] Address [address] [place] [address] Care Team Providers Care Photolith Operator Name Role Phone Mike Mitchell MD Primary Care Provider [phone] [phone] Reason for Visit * Reason Onset Date Comments General 09/28/2022 Encounter Details Date Type Department Care Team (Late st Contact Info) Description 09/28/[address] [facility] Gastroenter[address] [facility] [address] [address] Natasha Lewis General Social History Tobacco Use Types Packs/Day Years Used Date Smoking Tobacco: Never Assessed Sex and Gender Information Value Date Recorded Sex Assigned at Not on file Gender Identity Not on file Sexual Orientation Not on file documented as of this encounter Plan of Treatment Upcoming Encounters Date Type Department Care Team (Late st Contact Info) Description 02/09/2024 11:00 AM RESPITE WORKER Appointment [address] [address] Prabhjot Ryder MD [address] [facility] [address] [place] [address] [place] [address] [place] 03/27/2024 10:20 AM RESPITE WORKER Office Visit [facility] Gastroenterology [facility] [address] [facility] [address] [place] [address] Prabhjot Ryder MD [address] [facility] [address] [place] [address] documented as of this encounter Visit Diagnoses Not on filedocumented in this encounter Care Teams Photolith Operator Relationship Specialty Start Date End Date Mike Mitchell MD [address] [place] [phone] PCP - General Family Practice 09/28/22 documented as of this encounter
--- OUTSIDE RECORDS SUMMARY | 2024-01-30 08:33 | XMS_ITS | Encounter Summary ---
Author Organization [facility] Address [address] [place] [address] Care Team Providers Care Automobile Brakes Bonder Name Role Phone Mike Mitchell MD Primary Care Provider [phone] [phone] Encounter Details Date Type Department Care Team (Late st Contact Info) Description 01/22/2023 External Device Data STL ABSTRACTION Provider, Abstract [...] Contact Info) Description 02/09/2024 11:00 AM HEAD SULFIDE OPERATOR Appointment [address] [address] Prabhjot Ryder MD [address] [facility] [address] [place] [address] [place] [address] [place] 03/27/2024 10:20 AM HEAD SULFIDE OPERATOR Office Visit [facility] Gastroenterology [facility] [address] [facility] [address] [place] [address] Prabhjot Ryder MD [address] [facility] [address] [place] [address] documented as of this encounter Visit Diagnoses Not on filedocumented in this encounter Care Teams Automobile Brakes Bonder Relationship Specialty Start Date End Date Mike Mitchell MD [address] [place] [phone] PCP - General Family Practice 09/28/22 documented as of this encounter
--- OUTSIDE RECORDS SUMMARY | 2024-01-30 08:33 | XMS_ITS | Encounter Summary ---
Author Organization [facility] Address [address] [place] [address] Care Team Providers Care Plant Pathology Teacher Name Role Phone Mike Mitchell MD Primary Care Provider [phone] -[phone] Encounter Details Date Type Department Care Team (Late st Contact Info) Description 10/26/2022 Abstract [facility] Gastroenterology [facility] [address] [facility] [address] [place] [address] Prabhjot Ryder MD [address] [facility] [address] [place] [address] Social History Tobacco Use Types Packs/Day Years Used Date Smoking Tobacco: Never Assessed Sex and Gender Information Value Date Recorded Sex Assigned at Not on file Gender Identity Not on file Sexual Orientation Not on file documented as of this encounter Plan of Treatment Upcoming Encounters Date Type Department Care Team (Late st Contact Info) Description 02/09/2024 11:00 AM FUR BLOWER Appointment [address] [address] Prabhjot Ryder MD [address] [facility] [address] [place] [address] Infusion Misti Cobos 03/27/2024 10:20 AM FUR BLOWER Office Visit [facility] Gastroenterology [facility] [address] [facility] [address] [place] [address] Prabhjot Ryder MD [address] [facility] [address] [place] [address] documented as of this encounter Visit Diagnoses Not on filedocumented in this encounter Care Teams Plant Pathology Teacher Relationship Specialty Start Date End Date Mike Mitchell MD [address] [place] [phone] PCP - General Family Practice 09/28/22 documented as of this encounter
--- OUTSIDE RECORDS SUMMARY | 2024-01-30 08:33 | XMS_ITS | Encounter Summary ---
Author Organization [facility] Address [address] [place] [address] Care Team Providers Care Junior Network Administrator Name Role Phone Mike Mitchell MD Primary Care Provider +1 -[phone] Encounter Details Date Type Department Care Team (Latest Contact Info) Description 11/17/2022 Orders Only [facility] Gastroenterology [facility] [address] [facility] [address] [place] [address] Prabhjot Ryder MD [address] [facility] [address] [place] [address] Crohn's disease of colon with [...] st Contact Info) Description 02/09/2024 11:00 AM CLINICAL NURSING ASSISTANT Appointment [address] [phone] Prabhjot Ryder MD [address] [facility] [address] [place] [address] Misti Tapia 03/27/2024 10:20 AM CLINICAL NURSING ASSISTANT Office Visit [facility] Gastroenterology [facility] [address] [facility] [address] [place] [address] Prabhjot Ryder MD [address] [facility] [address] [place] [address] documented as of this encounter Results * QUANTIFERON TB GOLD [...] T-lymphocytes. For additional information, please refer to https://education.Press Play/faq/RJI482 (This link is being provided for informational/ educational purposes only.) Test Performed at: [facility] [address] [place], [place] ??[address] Rome Castillo MD Blood 04/21/2023 11:3 0 AM CDT 04/22/2023 9:29 AM CDT Prabhjot Ryder MD CHEMISTRY ORDERABLES [facility] [phone] [facility] [address] [place] [address] documented in this encounter Visit Diagnoses Diagnosis Crohn's disease of colon with other complication- Primary documented in this encounter Care Teams Junior Network Administrator Relationship Specialty Start Date End Date Mike Mitchell MD [address] [place] [phone] PCP - General Family Practice 09/28/22 documented as of this encounter
--- OUTSIDE RECORDS SUMMARY | 2024-01-30 08:33 | XMS_ITS | Encounter Summary ---
Author Organization [facility] Address [address] [place] [address] Care Team Providers Care Bench Assembler Operator Name Role Phone Mike Mitchell MD Primary Care Provider +1 -[phone] Encounter Details Date Type Department Care Team (Late st Contact Info) Description 03/28/2023 External Device Data STL ABSTRACTION Provider, Abstract [...] st Contact Info) Description 02/09/2024 11:00 AM TRUST AND ESTATES ATTORNEY Appointment [address] [address] Prabhjot Ryder MD [address] [facility] [address] [place] [address] [place] [address] 03/27/2024 10:20 AM TRUST AND ESTATES ATTORNEY Office Visit [facility] Gastroenterology [facility] [address] [facility] [address] [place] [address] Prabhjot Ryder MD [address] [facility] [address] [place] [address] documented as of this encounter Visit Diagnoses Not on filedocumented in this encounter Care Teams Bench Assembler Operator Relationship Specialty Start Date End Date Mike Mitchell MD [address] [place] [phone] PCP - General Family Practice 09/28/22 documented as of this encounter
--- OUTSIDE RECORDS SUMMARY | 2024-01-30 08:33 | XMS_ITS | Encounter Summary ---
Author Organization [facility] Address [address] [place] [address] Care Team Providers Care Pst Manager Name Role Phone Mike Mitchell MD Primary Care Provider +1 -[phone] Encounter Details Date Type Department Care Team (Late st Contact Info) Description 2023 External Device Data STL ABSTRACTION Provider, Abstract [...] st Contact Info) Description 02/09/2024 11:00 AM WARP DYEING TENDER Appointment [address] [address] Prabhjot Ryder MD [address] [facility] [address] [place] [address] [place] [address] 03/27/2024 10:20 AM WARP DYEING TENDER Office Visit [facility] Gastroenterology [facility] [address] [facility] [address] [place] [address] Prabhjot Ryder MD [address] [facility] [address] [place] [address] documented as of this encounter Visit Diagnoses Not on filedocumented in this encounter Care Teams Pst Manager Relationship Specialty Start Date End Date Mike Mitchell MD [address] [place] [address] PCP - General Family Practice 09/28/22 documented as of this encounter
--- OUTSIDE RECORDS SUMMARY | 2024-01-30 08:33 | XMS_ITS | Encounter Summary ---
Author Organization [facility] Address [address] [place] [address] Care Team Providers Care Production Tool Engineer Name Role Phone Mike Mitchell MD Primary Care Provider [phone] Encounter Details Date Type Department Care Team (Latest Contact Info) Description 11/26/2022 10:26 AM CDT - 11/26/2022 11:59 PM CDT Hospital Encounter [facility] Outpatient Laboratory Services [address] [place] [address] Discharge Disposition: Home or Self Care Social [...] wks 01/25/2024 documented as of this encounter Plan of Treatment Upcoming Encounters Date Type Department Care Team (Late st Contact Info) Description 02/09/2024 11:00 AM FORENSIC ANTHROPOLOGIST Appointment [address] [address] Prabhjot Ryder MD [address] [facility] [address] [place] [address] Infusion 7 [place] 03/27/2024 10:20 AM FORENSIC ANTHROPOLOGIST Office Visit [facility] Gastroenterology [facility] [address] [facility] [address] [place] [address] Prabhjot Ryder MD [address] [facility] [address] [place] [address] documented as of this encounter Procedures Procedure Name Priority Date/Time Associated Diagnosis Comments CBC WITH DIFFERENTIAL Stat 11/26/2022 10:29 AM CDT Crohn's disease of large intestine with other complication C-REACTIVE PROTEIN Stat 11/26/2022 10 :29 AM CDT Crohn's disease of large intestine with other complication COMPREHENSIVE METABOLIC PANEL Stat 11/26/2022 10:29 AM CDT Crohn's disease of large intestine with other complication documented in this encounter Results * C-REACTIVE PROTEIN (11/26/2022 10:29 AM CDT) CRP <5.0 <8.0 mg/L [facility] Comment: Test Performed at: [facility] [address] [place] ??[phone] Rome Castillo Blood 11/26/2022 10:2 9 AM CDT 11/27/2022 2:39 AM CDT Prabhjot Ryder MD CHEMISTRY ORDERABLES [facility] [phone] [facility] [employer] [address] [phone] * (ABNORMAL) COMPREHENSIVE METABOLIC PANEL (11/26/2022 10:29 AM CDT) GLUCOSE 173(H) 65 - 99 mg/dL [facility] Comment: ? Fasting reference interval For someone without known diabetes, a glucose value >125 mg/dL indicates that they may have diabetes and this should be confirmed with a follow-up test. BUN 19 7 - 25 mg/dL [facility] CREATININE 1.08 0.70 - 1.35 mg/dL [facility] GFR 77 > OR = 60 mL/min/1. 73m2 [facility] BUN/CREAT RATIO SEE NOTE: (calc) [facility] Comment: ?? Not Reported: BUN and Creatinine are within ?? reference range. ? SODIUM 136 135 - 146 mmol/L [facility] POTASSIUM 3.3(L) 3.5 - 5.3 mmol/L [facility] CHLORIDE 101 98 - 110 mmol/L [facility] CO2 26 20 - 32 mmol/L [facility] CALCIUM 9.3 8.6 - 10.3 mg/dL Bo [employer]S z[facility] [place] TOTAL PROTEIN 7.3 6.1 - 8.1 g/dL [employer] [facility] ALBUMIN 4.6 3.6 - 5.1 g/dL [employer] [place] GLOBULIN 2.7 1.9 - 3.7 g/dL (calc) Bo [employer]Ruth [facility]and ALBUMIN/GLOBULIN RATIO 1.7 1.0 - 2.5 (calc) [facility] BILIRUBIN TOTAL 0.5 0.2 - 1.2 mg/dL [facility] [place] ALKALINE PHOSPHATASE 43 35 - 144 U/L [facility] AST 26 10 - 35 U/L [facility] t Krystian ALT 30 9 - 46 U/L [facility] Comment: Test Performed at: [facility] [address] [place] ??[phone] [facility]Kelly Castillo Blood 11/26/2022 10:2 9 AM CDT 11/27/2022 2:39 AM CDT Prabhjot Ryder MD CHEMISTRY ORDERABLES Performing Organization Address City/[facility] [address]/ZIP Code Phone Number [facility] [phone] [facility] [employer] [address] [place] [phone] * CBC WITH DIFFERENTIAL (11/26/2022 10:29 AM CDT) WBC TNP Thousand/u L [facility] [employer]S zeny Boland Comment: TEST NOT PERFORMED No suitable specimen received. Please review the test requirements at [email or web address] Test Performed at: [facility] [address] [address] ??[phone] [facility] Jonathan Blood 11/26/2022 10:2 9 AM CDT 11/27/2022 2:39 AM CDT Prabhjot Ryder MD HEMATOLOGY ORDERABLE S Performing Organization Address City/[facility] [address]/ZIP Code Phone Number [facility] [phone] [place] [address] [place] [phone] documented in this encounter Visit Diagnoses Diagnosis Crohn's disease of large intestine with other complication- Primary documented in this encounter Care Teams Production Tool Engineer Relationship Specialty Start Date End Date Mike Mitchell MD [address] [place] [phone] PCP - General Family Practice 09/28/22 documented as of this encounter
--- OUTSIDE RECORDS SUMMARY | 2024-01-30 08:33 | XMS_ITS | Encounter Summary ---
Author Organization [facility] Address [address] [place] [address] Care Team Providers Care Engineering Faculty Name Role Phone Mike Mitchell MD Primary Care Provider [phone] Encounter Details Date Type Department Care Team (Late st Contact Info) Description 02/24/2023 External Device Data STL ABSTRACTION Provider, Abstract [...] st Contact Info) Description 02/09/2024 11:[address] SAFETY ENGINEER Appointment [address] [address] Prabhjot Ryder MD [address] [facility] [address] [place] [address] [place] [address] 03/27/2024 10:[address] SAFETY ENGINEER Office Visit [facility] Gastroenterology [facility] [address] [facility] [address] [place] [address] Prabhjot Ryder MD [address] [facility] [address] [place] [address] documented as of this encounter Visit Diagnoses Not on filedocumented in this encounter Care Teams Engineering Faculty Relationship Specialty Start Date End Date Mike Mitchell MD [address] [place] [address] PCP - General Family Practice 09/28/22 documented as of this encounter
--- OUTSIDE RECORDS SUMMARY | 2024-01-30 08:33 | XMS_ITS | Encounter Summary ---
Author Organization [facility] Address [address] [place] [address] Care Team Providers Care Cloth Printer Helper Name Role Phone Mike Mitchell MD Primary Care Provider [phone] Encounter Details Date Type Department Care Team (Late st Contact Info) Description 03/09/2023 External Device Data STL ABSTRACTION Provider, Abstract [...] st Contact Info) Description 02/09/2024 11:00 AM PAPER HANDLER Appointment [address] [address] Prabhjot Ryder MD [address] [facility] [address] [place] [address] [place] [address] 03/27/2024 10:20 AM PAPER HANDLER Office Visit [facility] Gastroenterology [facility] [address] [facility] [address] [place] [address] Prabhjot Ryder MD [address] [facility] [address] [place] [address] documented as of this encounter Visit Diagnoses Not on filedocumented in this encounter Care Teams Cloth Printer Helper Relationship Specialty Start Date End Date Mike Mitchell MD [address] [place] [address] PCP - General Family Practice 09/28/22 documented as of this encounter
--- OUTSIDE RECORDS SUMMARY | 2024-01-30 08:33 | XMS_ITS | Encounter Summary ---
Author Organization [facility] Address [address] [place] [address] Care Team Providers Care Painter Airbrush Name Role Phone Mike Mitchell MD Primary Care Provider [phone] Reason for Visit * Outpatient Services (Routine) - Closed Specialty Diagnoses / Procedures Referred By Roberto t Referred To Contact Hematology and Oncology Diagnoses Crohn's disease of colon with other complication 10mg/kg every 4 weeks. Procedures INFUSION THERAPY IA INFLIXIMAB NOT BIOSIMIL 10MG Remicade, Solu-medrol, Benadryl Prabhjot Ryder MD [address] [place] [address] [facility] [address] [facility] [address] [place] [address] Referral ID Status Reason Start Date Expiration Date Visits Re quested Visits Authorized [id number] Closed 10/27/2022 11/02/2023 12 12 Encounter Details Date Type Department Care Team (Latest Contact Info) Description 01/27/2023 9:32 AM DRIVER GUARD - 01/27/2023 11:59 PM [facility] Hospital Encounter [facility] [address] [facility] [address] [place] [address] Prabhjot Ryder MD [address] [place] [address] Infusion 1, [place] Discharge Disposition: Home or Self Care [...] Sign Reading Time Taken Comments Blood Pressure 141/81 01/27/2023 9:49 AM DRIVER GUARD Pulse 77 01/27/2023 9:49 AM DRIVER GUARD Temperature 36.4 ??C (97.5 ??F) 01/27/2023 9:49 AM CS T Respiratory Rate 16 01/27/2023 9:49 AM DRIVER GUARD Oxygen Saturation - - Inhaled Oxygen Concentration - - Weight 115.7 kg (255 lb 1.9 oz) 01/27/2023 9:35 AM DRIVER GUARD Height - - Body Mass Index 34.6 01/25/2023 11:26 AM DRIVER GUARD documented in this encounter Medications at Time [...] mouth daily. sulfaSALAzine (AZULFIDINE) 500 mg tablet Take 2 Tablets (1,000 mg) by mouth 4 times daily. 240 Tablet 01/03/2023 02/17/2023 sodium chloride 0.9% Parenteral Solution 250 mL with inFLIXimab 100 mg Recon Soln 10 mg Inject 10 mg by intravenous injection one time only. Every 6 wks 01/25/2024 documented as of this encounter Progress Notes * Colleen Delatorre RN - 01/27/2023 12:41 PM CST Kris Spence admitted to [facility] for infusion. Denies questions about medication/side effects as well as active infection. TB test negative within the last 12 months. Remicade titrated per protocol and pt tolerated without difficulty/reaction. Pt instructed to notify physician or goto ED if there are any changes in their condition. Verbalized understanding. Discharged home. ER GUARD documented in this encounter Plan of Treatment Upcoming Encounters Date Type Department Care Team (Late st Contact Info) Description 02/09/2024 11:00 AM DRIVER GUARD Appointment [address] [address] Prabhjot Ryder MD [address] [facility] [address] [place] [address] Infusion 7 [place] 03/27/2024 10:20 AM DRIVER GUARD Office Visit [facility] Gastroenterology [facility] [address] [facility] [address] [place] [address] Prabhjot Ryder MD [address] [facility] [address] [place] [address] documented as of this encounter Visit Diagnoses Not on filedocumented in this encounter Administered Medications Inactive Administered Medications - up to 3 most recent administrations Medication Order MAR Action Action Date Dose Rate Site acetaminophen (TYLENOL) tablet 975 mg 975 mg (rounded from 1,000 mg), Oral, ONE TIME ONLY, 1 dose, On Roxy 01/27/23 at 0945, Routine Given 01/27/2023 9:55 AM DRIVER GUARD 975 mg inFLIXimab (REMICADE) 1,100 mg in sodium chloride 0.9% 500 mL IVPB 1,100 mg, IV, ONE TIME ONLY, 1 dose, On Roxy 01/27/23 at 1000, Routine Rate Change 01/27/2023 11:57 AM DRIVER GUARD 500 mL/hr Rate Change 01/27/2023 11:27 AM DRIVER GUARD 300 mL/hr Rate Change 01/27/2023 11:12 AM DRIVER GUARD 160 mL/hr loratadine (CLARITIN) tablet 10 mg 10 mg, Oral, ONE TIME ONLY, 1 dose, On Roxy 01/27/23 at 0945, Routine Given 01/27/2023 9:55 AM DRIVER GUARD 10 mg sodium chloride 0.9% infusion IV, at 30-999 mL/hr, CONTINUOUS, Starting on Roxy 01/27/23 at 0945, Until Tue01/28/23 at 0309, Routine Rate Change 01/27/2023 12:35 PM DRIVER GUARD 300 mL/hr New Bag 01/27/2023 10:05 AM DRIVER GUARD 30 mL/hr documented in this encounter Care Teams Painter Airbrush Relationship Specialty Start Date End Date Mike Mitchell MD [address] [place] [address] PCP - General Family Practice 09/28/22 documented as of this encounter
--- OUTSIDE RECORDS SUMMARY | 2024-01-30 08:33 | XMS_ITS | Encounter Summary ---
Author Organization [facility] Address [address] [place] [address] Care Team Providers Care Machine Operators Name Role Phone Mike Mitchell MD Primary Care Provider [phone] Reason for Referral * Outpatient Services (Routine) - Closed Specialty Diagnoses / Procedures Referred By Roberto t Referred To Contact Hematology and Oncology Diagnoses Crohn's disease of colon with other complication 10mg/kg every 4 weeks. Procedures INFUSION THERAPY NM INFLIXIMAB NOT BIOSIMIL 10MG Remicade, Solu-medrol, Benadryl Prabhjot Ryder MD [address] [place] [address] [address] Referral ID Status Reason Start Date Expiration Date Visits Re quested Visits Authorized [id number] Closed 10/27/2022 11/02/2023 12 12 Encounter Details Date Type Department Care Team (Latest Contact Info) Description 10/27/2022 Orders Only [facility] G[facility] [address] [place] [address] Prabhjot Ryder MD [address] [place] [address] Crohn's disease of colon with [...] st Contact Info) Description 02/09/2024 11:00 AM PIE CRIMPING MACHINE OPERATOR Appointment [facility] [address] [facility] [address] [place] [address] Prabhjot Ryder MD [address] [facility] [address] [place] [address] Infusion Misti [place] 03/27/2024 10:20 AM PIE CRIMPING MACHINE OPERATOR Office Visit [facility] Gastroenterology [facility] [address] [facility] [address] [place] [address] Prabhjot Ryder MD [address] [facility] [address] [place] [address] documented as of this encounter Visit Diagnoses Diagnosis Crohn's disease of colon with other complication- Primary documented in this encounter Care Teams Machine Operators Relationship Specialty Start Date End Date Mike Mitchell MD [address] [place] [phone] PCP - General Family Practice 09/28/22 documented as of this encounter
--- OUTSIDE RECORDS SUMMARY | 2024-01-30 08:33 | XMS_ITS | Encounter Summary ---
Author Organization [facility] Address [address] [place] [address] Care Team Providers Care Senior Analysis Specialist Name Role Phone Mike Mitchell MD Primary Care Provider [phone] Reason for Visit * Reason Comments Crohn's Disease Encounter Details Date Type Department Care Team (Latest Contact Info) Description 10/26/2022 11:30 AM CDT Office Visit [facility] Gastroenterology [facility] [address] [place] [address] Prabhjot Ryder MD [address] [place] [address] Crohn's disease of colon with other complication (Primary Dx); Peptic ulcer; Drug-induced acute pancreatitis, unspecified complication status; Kidney stone Social History Tobacco Use Types Packs/Day Years Used Date Smoking Tobacco: Never Assessed Sex and Gender Information Value Date Recorded Sex Assigned at Not on file Gender Identity Not on file Sexual Orientation Not on file documented as of this encounter Last Filed Vital Signs Vital Sign Reading Time Taken Comments Blood Pressure 143/84 10/26/2022 11:20 AM CDT Pulse 89 10/26/2022 11:20 AM CDT Temperature - - Respiratory Rate - - Oxygen Saturation - - Inhaled Oxygen Concentration - - Weight 113.9 kg (251 lb) 10/26/2022 11:20 AM CDT Height 182.9 cm (6') 10/26/2022 11:20 AM CDT Body Mass Index 34.04 10/26/2022 11:20 AM CDT documented in this encounter Progress Notes * Prabhjot Ryder MD - 10/26/2022 11:21 AM CDT Images from the original note were not included. GASTROENTEROLOGY CLINIC CONSULT NOTE Today's date: 10/26/2022 Patient: Kris Spence : 1960 Primary care provider: Mike Mitchell MD Referring provider: No ref. provider found Chief Complaint Patient presents with Crohn's Disease SUBJECTIVE: Kris Spence is a pleasant 62 y.o. male who is referred for further management of Crohn's disease. Initially diagnosed in 1991 with [...] early 2020, infliximab. He was seen at [facility] on 08/07/2020, and noted to have [...] follow-up with Dr. Moreno in clinic at [facility], however prior to his appointment with her, she announced that she was departing from that institution. Therefore, he was tasked with finding a new physician. Current regimen: infliximab 10mg/kg every 6 weeks He was believed to have some extraintestinal [...] improves this. No blood in the stool. Pouchoscopy 05/31/2022 Impression: - Preparation of the [...] loop ileostomy site. - No specimens collected. Review of systems: Constitutional: Negative for fever, chills, fatigue, and unexpected weight change. HENT: Negative for congestion, hearing loss, mouth sores, nosebleeds Eyes: Negative for photophobia, pain, visual disturbance. Respiratory: Negative for wheezing and stridor, cough, shortness of breath Cardiovascular: Negative for chest pain, palpitations and leg swelling. Gastrointestinal: As per HPI Genitourinary: Negative for dysuria, pelvic pain, menstrual problems Musculoskeletal: Negative for joint swelling, myalgias, arthralgias. Neurological: Negative for dizziness, tremors, seizures, syncope, speech difficulty, weakness, numbness, headaches Psychiatric: Negative for agitation, behavioral problems, suicidal ideations Integumentary: Negative for new skin rashes or lesions Hematologic: Negative for abnormal bruising or bleeding No past medical history on file. No past surgical history on file. Social History Tobacco Use Smoking status: Not on file Smokeless tobacco: Not on file Substance Use Topics Alcohol use: Not on file No family history on file. PHYSICAL EXAM: BP (!) 143/84 Pulse 89 Ht 6' (1.829 m) Wt 113.9 kg (251 lb) BMI 34.04 kg/m?? Wt Readings from Last 3 Encounters: 10/26/22 113.9 kg (251 lb) Constitutional: Appears well-developed and well-nourished. No acute distress. Eyes: No scleral icterus. HEENT: Normocephalic and atraumatic. Neck without abnormality. Cardiovascular: Regular rate and rhythm Lungs: Breathing comfortably, no wheezing Abdomen: Soft, non-tender, non-distended, no palpable masses. No rebound or guarding. No hepatosplenomegaly. Midline incision well-healed, no apparent hernias. Musculoskeletal: No lower extremity edema. Skin: No obvious rashes or lesions on visualized skin Neuro: Alert, oriented to person, place and time. Cooperative, no gross focal findings on exam Psychiatric: Normal mood and affect. Behavior is normal. MEDICATIONS: Current Outpatient Medications Medication Sig Dispense Refill esomeprazole (NexIUM) 20 mg Capsule, Delayed Release(E.C.) [...] 100 mg by mouth 2 times daily. sulfaSALAzine (AZULFIDINE) 500 mg tablet Take 500 mg by mouth daily. Takes 6 per day loperamide (IMODIUM) 2 mg capsule Take [...] Reactions Azathioprine Other (See Comments) Caused pancreatitis LABS: No results found for: WBC , HGB , HGBPOC , HCT , HCTPOC , PLT , MCV No results found for: NA , K , CL , CO2 , CA , BUN , CREAT , GLUCOSE No results found for: TOTALPROTEIN , ALBUMIN , BILITOTAL , ALKPHOS , AST , ALT IMAGING: CT abdomen pelvis 12/2017 Impression: 1. No evidence for hydronephrosis, hydroureter or suspicious urinary calcifications. Previously noted right ureteral calculus is no longer identified. 2. Status post total colectomy with ileoanal anastomosis. PREVIOUS ENDOSCOPY: Pouchoscopy 05/31/2022 Findings: The perianal and digital rectal examinations [...] distal to the previous loop ileostomy site. Pouchoscopy 11/2020 Findings: The perianal and digital rectal examinations [...] hot snare. Resection and retrieval were complete. ASSESSMENT: Kris Spence is a pleasant 62 y.o. male who presents for evaluation of: #Crohn's of the pouch, active #s/p IPAA J pouch #Suboptimal infliximab level #Extraintestinal manifestations of Crohn's #Multiple incisional hernia repairs Very complicated history in this patient with presumed ulcerative colitis status post colectomy andJ-pouch creation, with subsequent development of Crohn's of the pouch. He seem to be in transition prior to having the need to find a new mangle catcher, with active disease and a suboptimal infliximab level on 10 mg/kg every 6 weeks. We will increase this to 10 mg/kg every 4 weeks, and then plan to retest levels and pouchoscopy in a few months after that. Symptomatically, he is unchanged from previous, and seems to be doing very well. His bowel movement number seems to be at his baseline, and he does take Imodium which helps significantly. He does have evidence of peripheral neuropathy, however it is unclear where this is coming from. Wewill check B12 levels, as well as iron panel and vitamin D given his Crohn's disease and resections. PLAN: -Increase infliximab to 10 mg/kg every 4 weeks -We will check levels in a few months after increase -We will need completed repeat pouchoscopy after 3 to 6 months on new dosing -Check B12, iron panel, vitamin D -CRP, fecal calprotectin -Quantiferon due 05/2023 -CBC/CMP from 08/2022 -Declines COVID and pneumococcal vaccinations -Needs yearly skin exam, Derm referral -No recent DEXA, will discuss at next visit -We will add fiber wafers -Return to clinic 3 months I appreciate the opportunity to be involved in the care of Kris Spence. Please do not hesitate to contact me with any further questions or concerns. Prabhjot Ryder M.D. [facility] Gastroenterology CC: No ref. provider found, Mike Mitchell MD documented in this encounter Miscellaneous Notes * Patient Instructions - Prabhjot Ryder MD - 10/26/2022 12:13 PM CDT It was a pleasure meeting with you today in the [facility]. I hope we provided you with excellent care today at [facility]. During our visit we discussed the following: We will check levels of B12 and Vitamin d and supplement as needed. We will also check your stool tests for fecal calprotectin. Will call with information regarding remicade infusion. Return to clinic in 3 months. Please call the clinic with any questions or concerns. [phone]. Prabhjot Ryder M.D. Department of Gastroenterology [facility] documented in this encounter Plan of Treatment Upcoming Encounters Date Type Department Care Team (Late st Contact Info) Description 02/09/2024 11:00 AM ELECTRICITY TRADER Appointment [facility] [address] [place] [phone] Prabhjot Ryder MD [address] [place] [address] Infusion [facility]i [facility]os 03/27/2024 10:20 AM ELECTRICITY TRADER Office Visit [facility] Gastroenterology [facility] [address] [place] [address] Prabhjot Ryder MD [address] [place] [address] documented as of this encounter Procedures Procedure Name Priority Date/Time Associated Diagnosis Comments CALPROTECTIN, FECAL Routine 10/27/2022 1 :39 PM CDT Crohn's disease of colon with other complication IRON, TIBC, AND PERCENT SATURATION Routine 10/26/2022 1:38 PM CDT Crohn's disease of colon with other complication VITAMIN D 25 HYDROXY Routine 10/26/2022 1:38 PM CDT Crohn's disease of colon with other complication C-REACTIVE PROTEIN Routine 10/26/2022 1: 38 PM CDT Crohn's disease of colon with other complication FERRITIN Routine 10/26/2022 1:38 PM CDT Crohn's disease of colon with other complication VITAMIN B12 LEVEL Routine 10/26/2022 1:3 8 PM CDT Crohn's disease of colon with other complication documented in this encounter Results * (ABNORMAL) CALPROTECTIN, FECAL (10/27/2022 1:39 PM CDT) CALPROTECTIN, FECAL 202(H) mcg/g [facility], Comment: ?Reference Range: ?<50 ? Normal ?50-120 ??Borderline ?>120 ?Elevated Calprotectin in Crohn's disease and ulcerative colitis can be five to several thousand times above the reference population (50 mcg/g or less). Levels are usually 50 mcg/g or less in healthy patients and with irritable bowel syndrome. Repeat testing in 4-6 weeks is suggested for borderline values. FASTING:NO FASTING: NO Test Performed at: [facility], [address] [place] [address] ??[phone] Carlotta Herrera MD,PhD,MARIA INES Stool STOOL SPECIMEN / Unknown 10/27/2022 1:39 PM CDT 10/27/2022 1:40 PM CDT Prabhjot Ryder MD BODY FLUIDS AND STOO LS Performing Organization Address [facility] de Phone Number [facility] [phone] [facility], [address] [place] [phone] * C-REACTIVE PROTEIN (10/26/2022 1:38 PM CDT) CRP 5.7 <8.0 mg/L [facility] Comment: FASTING:NO FASTING: NO Test Performed at: [facility] [address] [place] ??[phone] Rome Castillo MD Blood 10/26/2022 1:38 PM CDT 10/26/2022 1:38 PM CDT Prabhjot Ryder MD CHEMISTRY ORDERABLES Performing Organization Address [facility] de Phone Number [facility] [phone] [facility] [address] * FERRITIN (10/26/2022 1:38 PM CDT) [facility] FERRITIN 61 24 - 380 ng/mL [facility] Comment: FASTING:NO FASTING: NO Test Performed at: [address] ??[phone] Rome Castillo MD Blood 10/26/2022 1:38 PM CDT 10/26/2022 1:38 PM CDT Prabhjot Ryder MD CHEMISTRY ORDERABLES Performing Organization Address [facility]/ZIP Co de Phone Number [facility] [phone] [address] * IRON, TIBC, AND PERCENT SATURATION (10/26/2022 1:38 PM CDT) [facility] IRON 77 50 - 180 mcg/dL [facility] TIBC 361 250 - 425 mcg/dL (calc) [facility] IRON % SATURATION 21 20 - 48 % (calc) [facility] Comment: FASTING:NO FASTING: NO Test Performed at: [facility] ??[phone] Rome Castillo MD Blood 10/26/2022 1:38 PM CDT 10/26/2022 1:38 PM CDT Prabhjot Ryder MD CHEMISTRY ORDERABLES Performing Organization Address [facility]/ZIP Co de Phone Number [facility] [phone] [address] * VITAMIN D 25 HYDROXY (10/26/2022 1:38 PM CDT) [facility] VITAMIN D, 25 OH, TOTAL 32 30 - 100 ng/mL [facility] Comment: Vitamin D Status ? 25-OH Vitamin D: Deficiency: ?<20 ng/mL Insufficiency: ? 20 - 29 ng/mL Optimal: ? > or = 30 ng/mL For 25-OH Vitamin D testing on patients on D2-supplementation and patients for whom quantitation of D2 and D3 fractions is required, the [facility]) 25-OH VIT D, (D2,D3), LC/MS/MS is recommended: order code 94411 (patients >2yrs). See Note 1 Note 1 For additional information, please refer to http://education.EDAN/faq/PPI414 (This link is being provided for informational/ educational purposes only.) FASTING:NO FASTING: NO Test Performed at: [facility] [address] [place] [address] ??[phone] Rome Castillo MD Blood 10/26/2022 1:38 PM CDT 10/26/2022 1:38 PM CDT Prabhjot Ryder MD CHEMISTRY ORDERABLES Performing Organization Address [facility] de Phone Number [facility] [phone] [facility] [address] [place] [phone] * VITAMIN B12 LEVEL (10/26/2022 1:38 PM CDT) VITAMIN B12 600 200 - 1100 pg/mL [facility] Comment: FASTING:NO FASTING: NO Test Performed at: [facility] [address] [place] ??[phone] Rome Castillo MD Blood 10/26/2022 1:38 PM CDT 10/26/2022 1:38 PM CDT Prabhjot Ryder MD CHEMISTRY ORDERABLES Performing Organization Address [facility] Co de Phone Number [facility] [phone] [facility] [address] [place] [address] documented in this encounter Visit Diagnoses Diagnosis Crohn's disease of colon with other complication- Primary Peptic ulcer Peptic ulcer, unspecified site, unspecified as acute or chronic, without mention of hemorrhage, perforation, or obstruction Drug-induced acute pancreatitis, unspecified complication status Kidney stone Calculus of kidney documented in this encounter Care Teams Senior Analysis Specialist Relationship Specialty Start Date End Date Mike Mitchell MD [address] [place] [address] PCP - General Family Practice 09/28/22 documented as of this encounter
--- OUTSIDE RECORDS SUMMARY | 2024-01-30 08:33 | XMS_ITS | Encounter Summary ---
Author Organization [facility] Address [address] [place] [address] Care Team Providers Care Deputy Sheriff Lieutenant Name Role Phone Mike Mitchell MD Primary Care Provider [phone] Reason for Visit * Outpatient Services (Routine) - Closed Specialty Diagnoses / Procedures Referred By Roberto t Referred To Contact Hematology and Oncology Diagnoses Crohn's disease of colon with other complication 10mg/kg every 4 weeks. Procedures INFUSION THERAPY [place] INFLIXIMAB NOT BIOSIMIL 10MG Remicade, Solu-medrol, Benadryl Prabhjot Ryder MD [address] [place] [address] [facility] [address] [facility] [address] [place] [address] Referral ID Status Reason Start Date Expiration Date Visits Re quested Visits Authorized [id number] Closed 10/27/2022 11/02/2023 12 12 Encounter Details Date Type Department Care Team (Latest Contact Info) Description 02/24/2023 10:41 AM RHEOLOGIST - 02/24/2023 11:59 PM [facility] Hospital Encounter [facility] [address] [facility] [address] [place] [address] Prabhjot Ryder MD [address] [place] [address] Infusion 1, [place] Discharge Disposition: Home or Self Care Social [...] Sign Reading Time Taken Comments Blood Pressure 145/87 02/24/2023 11:07 AM RHEOLOGIST Pulse 80 02/24/2023 11:07 AM RHEOLOGIST Temperature 36.7 ??C (98 ??F) 02/24/2023 11: 07 AM RHEOLOGIST Respiratory Rate 16 02/24/2023 11:0 7 AM RHEOLOGIST Oxygen Saturation - - Inhaled Oxygen Concentration - - Weight 119.2 kg (262 lb 12.8 oz) 2023 10:46 AM RHEOLOGIST Height - - Body Mass Index 35.64 01/25/2023 11:26 AM RHEOLOGIST documented in this encounter Medications at Time [...] of this encounter Progress Notes * Vianney Hooks, RN - 02/24/2023 11:00 AM CST Remicade given per physicians orders, scanned in Epic. Pt monitored during infusion and tolerated without problems. IV discontinued. D/c ambulatory. LOGIST documented in this encounter Plan of Treatment Upcoming Encounters Date Type Department Care Team (Late st Contact Info) Description 02/09/2024 11:00 AM RHEOLOGIST Appointment [address] [address] Prabhjot Ryder MD [address] [facility] [address] [place] [address] Infusion 7, [place] 03/27/2024 10:20 AM RHEOLOGIST Office Visit [facility] Gastroenterology [facility] [address] [place] [address] Prabhjot Ryder MD [address] [facility] [address] [place] [address] documented as of this encounter Visit Diagnoses Not on filedocumented in this encounter Administered Medications Inactive Administered Medications - up to 3 most recent administrations Medication Order MAR Action Action Date Dose Rate Site acetaminophen (TYLENOL) tablet 975 mg 975 mg (rounded from 1,000 mg), Oral, ONE TIME ONLY, 1 dose, On Roxy 02/24/23 at 1100, Routine Given 02/24/2023 11:11 AM RHEOLOGIST 975 mg inFLIXimab (REMICADE) 1,100 mg in sodium chloride 0.9% 500 mL IVPB 1,100 mg, IV, ONE TIME ONLY, 1 dose, On Roxy 02/24/23 at 1115, Routine Rate Change 02/24/2023 1:05 PM RHEOLOGIST 500 mL/hr Rate Change 02/24/2023 12:35 PM RHEOLOGIST 300 mL/hr Rate Change 02/24/2023 12:19 PM RHEOLOGIST 160 mL/hr loratadine (CLARITIN) tablet 10 mg 10 mg, Oral, ONE TIME ONLY, 1 dose, On Roxy 02/24/23 at 1100, Routine Given 02/24/2023 11:11 AM RHEOLOGIST 10 mg sodium chloride 0.9% infusion IV, at 30-999 mL/hr, CONTINUOUS, Starting on Roxy 02/24/23 at 1100, Until Tue02/25/23 at 0313, Routine Rate Change 02/24/2023 1:46 PM RHEOLOGIST 500 mL /hr New Bag 02/24/2023 11:10 AM RHEOLOGIST 30 mL/hr documented in this encounter Care Teams Deputy Sheriff Lieutenant Relationship Specialty Start Date End Date Mike Mitchell MD [address] [place] [phone] PCP - General Family Practice 09/28/22 documented as of this encounter
--- OUTSIDE RECORDS SUMMARY | 2024-01-30 08:33 | XMS_ITS | Encounter Summary ---
Author Organization [facility] Address [address] [place] [address] Care Team Providers Care Skid Man Name Role Phone Mike Mitchell MD Primary Care Provider [phone] [phone] Reason for Referral * Radiology Services (Routine) - Closed Specialty Diagnoses / Procedures Referred By Roberto t Referred To Contact Radiology Diagnoses Crohn's disease of colon with other complication Procedures XR DEXA BONE DENSITY AXIAL 1 OR MORE SITES Prabhjot Ryder MD [address] [facility] [address] [place] [address] [place] Bone Density [address] [address] Referral ID Status Reason Start Date Expiration Date Visits Re quested Visits Authorized [id number] Closed 01/25/2023 02/25/2024 1 1 TIC WELDER Reason for Visit * Reason Comments Crohn's Disease Encounter Details Date Type Department Care Team (Latest Contact Info) Description 01/25/2023 11:30 AM ROBOTIC WELDER Office Visit [facility] Gastroenterology [facility] [address] [facility] [address] [place] [address] Prabhjot Ryder MD [address] [facility] [address] [place] [address] Crohn's disease of colon with [...] Sign Reading Time Taken Comments Blood Pressure 149/97 01/25/2023 11:29 AM ROBOTIC WELDER Pulse 80 01/25/2023 11:29 AM ROBOTIC WELDER Temperature - - Respiratory Rate - - Oxygen Saturation - - Inhaled Oxygen Concentration - - Weight 115.7 kg (255 lb) 01/25/2023 11:26 AM ROBOTIC WELDER Height 182.9 cm (6') 01/25/2023 11:26 AM ROBOTIC WELDER Body Mass Index 34.58 01/25/2023 11:26 AM ROBOTIC WELDER documented in this encounter Progress Notes * Prabhjot Ryder MD - 01/25/2023 11:30 AM CST Date of Visit: 01/25/2023 Date of : 1960 CSN: [id number] PCP: Mike Mitchell MD History of Present Illness: Kris Spence is a pleasant 62 y.o. male who presented initially for Crohn's [...] early 2020, infliximab. He was seen at [facility] on 08/07/2020, and noted to have [...] follow-up with Dr. Moreno in clinic at [facility], however prior to his appointment with her, [...] loop ileostomy site. - No specimens collected. Interval Hx: Since last visit, patient had labs completed. He has a normal iron saturation and ferritin, normal vitamin D, and CRP is normal. His fecal calprotectin was mildly elevated at 202. We increased his infliximab to 10 mg/kg every 4 weeks back in 10/2022. He underwent surgery to fix R shoulder, and his infliximab was held by his orthopedic provider. He has not had any infliximab since 11/26, and is due for next infusion 01/27. I was not included in this decision. He has had increase in symptoms, including urgency, and watery stools. However, his number has not really increased per day (~7/day). No blood. Does note general fatigue and rumbling inhis stomach. No blood in stool. + mouth sores and increased arthritis symptoms in his ankles. He is anxious to restart his infliximab. Past Medical History: Diagnosis Date H/O repair of right rotator cuff History of colostomy reversal History of kidney stones Liver hemangioma Peptic ulcer 10/26/2022 Current Outpatient Medications Medication Sig Dispense Refill sulfaSALAzine (AZULFIDINE) 500 mg tablet Take 2 Tablets (1,000 mg) by mouth 4 times daily. 240 Tablet 0 esomeprazole (NexIUM) 20 mg Capsule, Delayed Release(E.C.) [...] Use Topics Alcohol use: Not on file Review of Systems Denies other gastrointestinal or [...] 11/26/2022 BCRATIO SEE NOTE: 11/26/2022 Imaging Review Reviewed, no interval. Endoscopy Review Pouchoscopy 05/31/2022 Findings: The perianal and digital [...] a pleasant 62 y.o. male who presents in return for: #Crohn's of the pouch, active #s/p IPAA J pouch #Suboptimal infliximab level #Extraintestinal manifestations of Crohn's #Multiple incisional hernia repairs PLAN: -continue infliximab to 10 mg/kg every 4 weeks -We will check levels in April after visit, as well as crp/fecal calrpo -We will need completed repeat pouchoscopy in -Quantiferon due 05/2023 -CBC/CMP from 08/2022 -Declines COVID and pneumococcal vaccinations -Yearly skin exam completed -Ordering DEXA today, has not had before -We will add fiber wafers -Return to clinic 3 months Prabhjot Ryder MD [facility] Digestive Diseases TIC WELDER documented in this encounter Miscellaneous Notes * Patient Instructions - Prabhjot Ryder MD - 01/25/2023 12:08 PM ROBOTIC WELDER It was a pleasure meeting with you today in the [facility]. I hope we provided you with excellent care today at [facility]. During our visit we discussed the following: We discussed restarting the infliximab on 01/27, and returning to every 4 weeks. I will see you back in April (3 months). At that time, we will plan for blood tests (drug level) and stool testing. Based on this, will planfor a scope. I will also order a DEXA scan to evaluate bone mineral density due to your previous heavy steroid use. Consider starting metamucil wafers. Please call the clinic with any questions or concerns. [phone]. Prabhjot Ryder M.D. Department of Gastroenterology [facility] TIC WELDER documented in this encounter Plan of Treatment Upcoming Encounters Date Type Department Care Team (Late st Contact Info) Description 02/09/2024 11:00 AM ROBOTIC WELDER Appointment [address] [place] [address] Prabhjot Ryder MD [address] [facility] [address] [place] [address] Misti Tapia 03/27/2024 10:20 AM ROBOTIC WELDER Office Visit [facility] Gastroenterology [place] [address] [facility] [address] [place] [address] Prabhjot Ryder MD [address] [place] [address] documented as of this encounter Results * XR DEXA BONE DENSITY AXIAL 1 OR MORE SITES (02/09/2023 11:40 AM ROBOTIC WELDER) Anatomical Region Laterality Modality Digital Radiogra phy 02/09/2023 11:4 1 AM ROBOTIC WELDER Impressions 02/09/2023 2:17 PM ROBOTIC WELDER IMPRESSION: This is a summary page. Please refer to the complete detailed report found in the Imaging Section of the [facility] EMR, including absolute bone mineral density values. Normal BMD. Comments: None. Statistical change: No prior exam is available. FRAX FRACTURE RISK ASSESSMENT: ?? Risk factors: None. ?? 10 Year Probability Of Fracture ?? Major Osteoporotic: 3.4 % Hip: 0.1 % Comparison population: [place], Race: FRAX risk assessment is not validated in patients with normal bone mineral density and may not accurately reflect true fracture risk. A major osteoporotic fracture is defined as a fracture of the spine, forearm, hip or shoulder. Definitions: Normal: T-score >= -1.0 ?? Osteopenia T-score less than -1.0 and above -2.5 Osteoporosis: T-score <= -2.5 Follow-up Recommendations: ? Patients without high risk factors for osteoporosis ? T-score -1.0 to -1.5 - Consider repeat BMD in 5-10 years ? T-score -1.5 to - 2.0 - Consider repeat BMD in 3-5 years ? T-score -2.0 to - 2.5 - Consider repeat BMD every 2 years ? Patients on treatment for osteoporosis ? 1-2 years after initiation of treatment and every 2 years thereafter DICTATION LOCATION: Location 1 - [facility] Narrative 02/09/2023 2:17 PM ROBOTIC WELDER EXAMINATION: ??BONE DENSITY STUDY (DXA) DATE: 02/09/2023 11:40 AM HISTORY: See Diagnosis Crohn's disease of colon with other complication PROCEDURE: Planar images of the lumbar spine and/or hip(s) using a Skillset DEXA scanner for bone mineral density determination (BMD). FINDINGS: ? Lumbar Spine (L1-L4): ??T-Score: ?? 3.0 ?? Left Femoral Neck: ??T-Score: ?? 1.5 ?? Right Femoral Neck: ?? T-Score: ?? 1.4 ?? Procedure Note Jeff Valenzuela MD - 02/09/2023 EXAMINATION: BONE DENSITY STUDY (DXA) DATE: 02/09/2023 11:40 AM HISTORY: See Diagnosis Crohn's disease of colon with other complication PROCEDURE: Planar images of the lumbar spine and/or hip(s) using a LUNAR DEXA scanner for bone mineral density determination (BMD). FINDINGS: Lumbar Spine (L1-L4): T-Score: 3.0 Left Femoral Neck: T-Score: 1.5 Right Femoral Neck: T-Score: 1.4 IMPRESSION: This is a summary page. Please refer to the complete detailed report found in the Imaging Section of the [facility] EMR, including absolute bone mineral density values. Normal BMD. Comments: None. Statistical change: No prior exam is available. FRAX FRACTURE RISK ASSESSMENT: Risk factors: None. 10 Year Probability Of Fracture Major Osteoporotic: 3.4 % Hip: 0.1 % Comparison population: [place], Race: FRAX risk assessment is not validated in patients with normal bone mineral density and may not accurately reflect true fracture risk. A major osteoporotic fracture is defined as a fracture of the spine, forearm, hip or shoulder. Definitions: Normal: T-score >= -1.0 Osteopenia T-score less than -1.0 and above -2.5 Osteoporosis: T-score <= -2.5 Follow-up Recommendations: Patients without high risk factors for osteoporosis T-score -1.0 to -1.5 - Consider repeat BMD in 5-10 years T-score -1.5 to - 2.0 - Consider repeat BMD in 3-5 years T-score -2.0 to - 2.5 - Consider repeat BMD every 2 years Patients on treatment for osteoporosis 1-2 years after initiation of treatment and every 2 years thereafter DICTATION LOCATION: Location 1 - [facility] Prabhjot Ryder MD DIAGNOSTIC IMAGING O [place] documented in this encounter Visit Diagnoses Diagnosis Crohn's disease of colon with other complication- Primary Crohn's disease of colon with other complication documented in this encounter Care Teams Skid Man Relationship Specialty Start Date End Date Mike Mitchell MD [address] [place] [id number] PCP - General Family Practice 09/28/22 documented as of this encounter
--- OUTSIDE RECORDS SUMMARY | 2024-01-30 08:33 | XMS_ITS | Encounter Summary ---
Author Organization [facility] Address [address] [place] [address] Care Team Providers Care Financial Advisor Trainee Name Role Phone Mike Mitchell MD Primary Care Provider [phone] Reason for Visit * Outpatient Services (Routine) - Closed Specialty Diagnoses / Procedures Referred By Roberto t Referred To Contact Hematology and Oncology Diagnoses Crohn's disease of colon with other complication 10mg/kg every 4 weeks. Procedures INFUSION THERAPY [place] INFLIXIMAB NOT BIOSIMIL 10MG Remicade, Solu-medrol, Benadryl Prabhjot Ryder MD [address] [place] [address] [facility] [address] [facility] [address] [place] [address] Referral ID Status Reason Start Date Expiration Date Visits Re quested Visits Authorized [id number] Closed 10/27/2022 11/02/2023 12 12 Encounter Details Date Type Department Care Team (Latest Contact Info) Description 03/24/2023 10:43 AM CLINICAL IMMUNOLOGIST - 03/24/2023 11:59 PM [facility] Hospital Encounter [facility] [address] [facility] [address] [place] [address] Prabhjot Ryder MD [address] [place] [address] Infusion 1, [place] Discharge Disposition: Home or Self Care Social [...] Sign Reading Time Taken Comments Blood Pressure 151/84 03/24/2023 10:55 AM CLINICAL IMMUNOLOGIST Pulse 77 03/24/2023 10:55 AM CLINICAL IMMUNOLOGIST Temperature 36.4 ??C (97.6 ??F) 03/24/2023 1 0:55 AM CLINICAL IMMUNOLOGIST Respiratory Rate 16 03/24/2023 10:5 5 AM CLINICAL IMMUNOLOGIST Oxygen Saturation - - Inhaled Oxygen Concentration - - Weight 119.8 kg (264 lb 1.9 oz) 024 10:45 AM CLINICAL IMMUNOLOGIST Height - - Body Mass Index 35.82 01/25/2023 11:26 AM CLINICAL IMMUNOLOGIST documented in this encounter Medications at Time [...] Progress Notes * Timothy Chisholm RN - 03/24/2023 2:13 PM CST Kris Spence admitted to [facility] for infusion. Denies questions about medication/side effects as well as active infection. TB test negative within the last 12 months. Remicade titrated per protocol and pt tolerated without difficulty/reaction. Pt instructed to notify physician or goto ED if there are any changes in their condition. Verbalized understanding. Discharged home. ICAL IMMUNOLOGIST documented in this encounter Plan of Treatment Upcoming Encounters Date Type Department Care Team (Late st Contact Info) Description 02/09/2024 11:00 AM CLINICAL IMMUNOLOGIST Appointment [address] [address] Prabhjot Ryder MD [address] [facility] [address] [place] [address] Infusion [facility] 03/27/2024 10:20 AM CLINICAL IMMUNOLOGIST Office Visit [facility] Gastroenterology [facility] [address] [facility] [address] [place] [address] Prabhjot Ryder MD [address] [facility] [address] [place] [address] documented as of this encounter Visit Diagnoses Not on filedocumented in this encounter Administered Medications Inactive Administered Medications - up to 3 most recent administrations Medication Order MAR Action Action Date Dose Rate Site acetaminophen (TYLENOL) tablet 975 mg 975 mg (rounded from 1,000 mg), Oral, ONE TIME ONLY, 1 dose, On Roxy 03/24/23 at 1100, Routine Given 03/24/2023 10:58 AM CLINICAL IMMUNOLOGIST 975 mg inFLIXimab (REMICADE) 1,198 mg in sodium chloride 0.9% 500 mL IVPB 1,198 mg (10 mg/kg ? 119.8 kg), IV, ONE TIME ONLY, 1 dose, On Roxy 03/24/23 at 1100, Routine Rate Change 03/24/2023 12:57 PM CLINICAL IMMUNOLOGIST 500 mL/hr Rate Change 03/24/2023 12:26 PM CLINICAL IMMUNOLOGIST 300 mL/hr Rate Change 03/24/2023 12:11 PM CLINICAL IMMUNOLOGIST 160 mL/hr loratadine (CLARITIN) tablet 10 mg 10 mg, Oral, ONE TIME ONLY, 1 dose, On Roxy 03/24/23 at 1100, Routine Given 03/24/2023 10:58 AM CLINICAL IMMUNOLOGIST 10 mg sodium chloride 0.9% infusion IV, at 30-999 mL/hr, CONTINUOUS, Starting on Roxy 03/24/23 at 1100, Until Tue03/25/23 at 0311, Routine Rate Change 03/24/2023 1:38 PM CLINICAL IMMUNOLOGIST 300 mL /hr New Bag 03/24/2023 11:09 AM CLINICAL IMMUNOLOGIST 30 mL/hr documented in this encounter Care Teams Financial Advisor Trainee Relationship Specialty Start Date End Date Mike Mitchell MD [address] [place] [phone] PCP - General Family Practice 09/28/22 documented as of this encounter
--- OUTSIDE RECORDS SUMMARY | 2024-01-30 08:33 | XMS_ITS | Encounter Summary ---
Author Organization [facility] Address [address] [place] [address] Care Team Providers Care Person Investigator Name Role Phone Mike Mitchell MD Primary Care Provider [phone] Reason for Visit * Outpatient Services (Routine) - Closed Specialty Diagnoses / Procedures Referred By Roberto t Referred To Contact Hematology and Oncology Diagnoses Crohn's disease of colon with other complication 10mg/kg every 4 weeks. Procedures INFUSION THERAPY [place] INFLIXIMAB NOT BIOSIMIL 10MG Remicade, Solu-medrol, Benadryl Prabhjot Ryder MD [address] [place] [address] [facility] [address] [facility] 150 [address] Referral ID Status Reason Start Date Expiration Date Visits Re quested Visits Authorized [id number] Closed 10/27/2022 11/02/2023 12 12 Encounter Details Date Type Department Care Team (Latest Contact Info) Description 11/26/2022 10:18 AM CDT - 11/26/2022 11:59 PM CDT Hospital Encounter [facility] [address] [facility] [address] [address] Prabhjot Ryder MD [address] [place] [address] Infusion [address] [place] Discharge Disposition: Home or Self Care Social History Tobacco Use Types Packs/Day Years Used Date Smoking Tobacco: Never Assessed Sex and Gender Information Value Date Recorded Sex Assigned at Not on file Gender Identity Not on file Sexual Orientation Not on file documented as of this encounter Last Filed Vital Signs Vital Sign Reading Time Taken Comments Blood Pressure 135/81 11/26/2022 10:51 AM CDT Pulse 76 11/26/2022 10:51 AM CDT Temperature 36.8 ??C (98.2 ??F) 11/26/2022 1 0:51 AM CDT Respiratory Rate 18 11/26/2022 10:5 1 AM CDT Oxygen Saturation - - Inhaled Oxygen Concentration - - Weight 112.3 kg (247 lb 9.2 oz) 023 10:00 AM CDT Height - - Body Mass Index 33.58 10/26/2022 11:20 AM CDT documented in this encounter Medications [...] as of this encounter Progress Notes * Priyanka Ray, RN - 11/26/2022 10:30 AM CDT Kris Spence admitted to [facility] for infusion. Denies questions about medication/side effects as well as active infection. TB test negative within the last 12 months. Remicade titrated per protocol and pt tolerated without difficulty/reaction. Pt instructed to notify physician or [facility] if there are any changes in their condition. Verbalized understanding. Discharged home. documented in this encounter Plan of Treatment Upcoming Encounters Date Type Department Care Team (Late st Contact Info) Description 02/09/2024 11:00 AM FINAL TOUCH UP PAINTER Appointment [facility] [address] [address] Prabhjot Ryder MD [address] [facility] [address] [place] [address] Infusion [facility] 03/27/2024 10:20 AM FINAL TOUCH UP PAINTER Office Visit [facility] Gastroenterology [facility] [address] [facility] [address] [place] [address] Prabhjot Ryder MD [address] [facility] [address] [place] [address] documented as of this encounter Procedures Procedure Name Priority Date/Time Associated Diagnosis Comments CBC WITH DIFFERENTIAL Stat 11/26/2022 10:38 AM CDT Crohn's disease of colon with complication documented in this encounter Results * CBC WITH DIFFERENTIAL (11/26/2022 10:38 AM CDT) WBC 5.0 4.0 - 9.8 K/uL 11/26/2022 10:[address] [facility] [place] RBC 4.89 4.50 - 5.40 M/uL 11/26/2022 10:42 AM CDT [facility] [place] HEMOGLOBIN 15.6 13.6 - 16.5 g/dL 11/26/2022 10:42 AM CDT [facility] [place] HEMATOCRIT 43.9 40.0 - 48.0 % 11/26/2022 10:42 AM CDT [facility] [place] MCV 89.8 82.0 - 99.0 fL 11/26/2022 10:42 AM CDT [facility] [place] MCH 31.9 27.2 - 32.6 pg 11/26/2022 10:42 AM CDT [facility] [place] MCHC 35.5 31.5 - 35.5 g/dL 11/26/2022 10:42 AM CDT [facility] [place] RDW 12.0 11.5 - 14.5 % 11/26/2022 10:42 AM CDT [facility] [place] RDW-STDEV 38.9 37.1 - 48.7 fL 11/26/2022 10:42 AM CDT [facility] [place] [place] PLATELETS 223 140 - 350 K/uL 11/26/2022 10:42 AM CDT [facility] [place] [place] MPV 10.0 9.3 - 12.4 fL 11/26/2022 10:42 AM CDT [facility] [place] [place] NEUTROPHILS 66 % 11/26/2022 10:42 AM CDT [facility] [place] [place] LYMPHOCYTES 24 % 11/26/2022 10:42 AM CDT [facility] [place] [place] MONOCYTES 8 % 11/26/2022 10:42 AM CDT [facility] [place] EOSINOPHILS 0 % 11/26/2022 10:42 AM CDT [facility] [place] BASOPHILS 0 % 11/26/2022 10:42 AM CDT [facility] [place] IMMATURE GRANULOCYTES 0 % 11/26/2022 10:42 AM CDT [facility] [place] NEUTROPHIL ABSOLUTE 3.30 1.90 - 7.00 K/uL 11/26/2022 10:42 AM CDT [facility] [place] LYMPHOCYTE ABSOLUTE 1.20 0.70 - 4.50 K/uL 11/26/2022 10:[address] [facility] [place] MONOCYTE ABSOLUTE 0.42 0.10 - 1.30 K/uL 11/26/2022 10:[address] [facility] [place] EOSINOPHIL ABSOLUTE 0.02 0.00 - 0.70 K/uL 11/26/2022 10:[address] [facility] [place] BASOPHILS ABSOLUTE 0.02 0.00 - 0.20 K/uL 11/26/2022 10:[address] [facility] [place] IMMATURE GRANULOCYTES ABSOLUTE 0.02 0.00 - 0.03 K/uL 11/26/2022 10:[address] [facility] Blood Venipuncture / Unknown 11/26/2022 10:38 AM CDT 11/26/2022 10:40 AM CDT Prabhjot Ryder MD HEMATOLOGY ORDERABLE [facility] [place] [place] IA#[id number] [place] [id number] documented in this encounter Visit Diagnoses Diagnosis Peptic ulcer- Primary Peptic ulcer, unspecified site, unspecified as acute or chronic, without mention of hemorrhage, perforation, or obstruction Crohn's disease of colon with complication documented in this encounter Administered Medications Inactive Administered Medications - up to 3 most recent administrations Medication Order MAR Action Action Date Dose Rate Site acetaminophen (TYLENOL) tablet 975 mg 975 mg (rounded from 1,000 mg), Oral, ONE TIME ONLY, 1 dose, On Tue11/26/22 at 1045, Routine Given 11/26/2022 10:54 AM CDT 975 mg inFLIXimab (REMICADE) 1,123 mg in sodium chloride 0.9% 500 mL IVPB 1,123 mg (10 mg/kg ? 112.3 kg), IV, ONE TIME ONLY, 1 dose, On Tue11/26/22 at 1045, Routine Rate Change 11/26/2022 12:50 PM CDT 500 mL/hr Rate Change 11/26/2022 12:50 PM CDT 1 mL/hr Rate Change 11/26/2022 12:20 PM CDT 300 mL/hr loratadine (CLARITIN) tablet 10 mg 10 mg, Oral, DAILY, First dose on Tue11/26/22 at 1045, Until Discontinued, Routine Given 11/26/2022 10:54 AM CDT 10 mg sodium chloride 0.9% infusion IV, at 30 mL/hr, CONTINUOUS, Starting on Tue11/26/22 at 1045, Until 11/27/22 at 0257, Routine New Bag 11/26/2022 11:09 AM CDT 30 mL/hr documented in this encounter Care Teams Person Investigator Relationship Specialty Start Date End Date Mike Mitchell MD [address] [place] [address] PCP - General Family Practice 09/28/22 documented as of this encounter
--- OUTSIDE RECORDS SUMMARY | 2024-01-30 08:33 | XMS_ITS | Encounter Summary ---
Author Organization [employer] [facility] Address [address] [place] [address] Care Team Providers Care Pigment Weigher Name Role Phone Mike Mitchell MD Primary Care Provider [phone] Reason for Referral * Radiology Services (Routine) - Closed Specialty Diagnoses / Procedures Referred By Contac t Referred To Contact Radiology Diagnoses Crohn's disease of colon with other complication Procedures XR DEXA BONE DENSITY AXIAL 1 OR MORE SITES Prabhjot Ryder MD [address] [place] [phone] [facility] [place] [address] [facility] [place] [address] [place] [phone] Referral ID Status Reason Start Date Expiration Date Visits Re quested Visits Authorized [id number] Closed 01/25/2023 02/25/2024 1 1 TALLIZER OPERATOR Reason for Visit * Radiology Services (Routine) - Closed Specialty Diagnoses / Procedures Referred By Contac t Referred To Contact Radiology Diagnoses Crohn's disease of colon with other complication Procedures XR DEXA BONE DENSITY AXIAL 1 OR MORE SITES Prabhjot Ryder MD [address] [place] [address] [facility] [place] [address] [facility] [address] [place] [address] [place] [phone] Referral ID Status Reason Start Date Expiration Date Visits Re quested Visits Authorized [id number] Closed 01/25/2023 02/25/2024 1 1 Encounter Details Date Type Department Care Team (Latest Contact Info) Description 02/09/2023 10:54 AM CRYSTALLIZER OPERATOR - 02/09/2023 11:59 PM [facility] Hospital Encounter [facility] [place] [address] [facility] [address] [place] [address] [place] [address] Prabhjot Ryder MD [address] [facility] [address] [place] [address] Discharge Disposition: Home or Self Care Social [...] st Contact Info) Description 02/09/2024 11:00 AM CRYSTALLIZER OPERATOR Appointment [facility] [address] [address] Prabhjot Ryder MD [address] [facility] [address] [place] [address] Infusion 7, [place] 03/27/2024 10:20 AM CRYSTALLIZER OPERATOR Office Visit [facility] Gastroenterology [facility] [address] [facility] [address] [place] [address] Prabhjot Ryder MD [address] [facility] [address] [place] [address] documented as of this encounter Procedures Procedure Name Priority Date/Time Associated Diagnosis Comments XR DEXA BONE DENSITY AXIAL 1 OR MORE SITES Routine 02/09/2023 11:40 AM CRYSTALLIZER OPERATOR Crohn's disease of colon with other complication documented in this encounter Results * XR DEXA BONE DENSITY AXIAL 1 OR MORE SITES (02/09/2023 11:40 AM CRYSTALLIZER OPERATOR) Anatomical Region Laterality Modality Digital Radiogra phy 02/09/2023 11:4 1 AM CRYSTALLIZER OPERATOR Impressions 02/09/2023 2:17 PM CRYSTALLIZER OPERATOR IMPRESSION: This is a summary page. Please refer to the complete detailed report found in the Imaging Section of the [facility] EMR, including absolute bone mineral density [...] years thereafter DICTATION LOCATION: Location 1 - [facility] 02/09/2023 2:17 PM CRYSTALLIZER OPERATOR EXAMINATION: ??BONE DENSITY STUDY (DXA) DATE: 02/09/2023 11:40 AM HISTORY: See Diagnosis Crohn's disease of colon with other complication PROCEDURE: Planar images of the lumbar spine and/or hip(s) using a [employer] DEXA scanner for bone mineral density determination [...] the lumbar spine and/or hip(s) using a [employer] DEXA scanner for bone mineral density determination (BMD). FINDINGS: Lumbar Spine (L1-L4): T-Score: 3.0 Left Femoral Neck: T-Score: 1.5 Right Femoral Neck: T-Score: 1.4 IMPRESSION: This is a summary page. Please refer to the complete detailed report found in the Imaging Section of the [facility] EMR, including absolute bone mineral density [...] years thereafter DICTATION LOCATION: Location 1 - [facility] Prabhjot Ryder MD DIAGNOSTIC IMAGING O DEANA documented in this encounter Visit Diagnoses Diagnosis Crohn's disease of colon with other complication documented in this encounter Care Teams Pigment Weigher Relationship Specialty Start Date End Date Mike Mitchell MD [address] [place] [address] PCP - General Family Practice 09/28/22 documented as of this encounter
--- OUTSIDE RECORDS SUMMARY | 2024-01-30 08:34 | XMS_ITS | Continuity of Care Document ---
Author Organization [facility] Address [address] [place] [phone] Phone Care Team Providers Care Cafe Manager Name Role Phone Bereketab OD, Elilta Unavailable Unavailable Allergies, Adverse Reactions, Alerts Substance Reaction Status Criticality iron Active No Information Medications Medication Instructions Dosage Effective Dates (start - stop) Status Comments LISINOPRIL (unknown strength) Not Available - Active POTASSIUM (unknown strength) Not Available - Active NEXIUM (unknown strength) Not Available - Active Procedures Procedure Date Vision [facility] frames purchases Trifocal Lens Anti-reflective coating TINT Slip On Sunglasses EYE EXAM, EXISTING PATIENT VISION REFRACTION UPDATE Advance Directives Directive Yes / No Effective Date File Name No Information Encounters Encounter Description Practice Location Reason(s) For Visit Diagnoses Date Provider Providers Copied on Encounter [facility], [address] [place] [address], [id number] , [place] [phone] [facility] No Information 7 Bereketab Elilta. [address] [place] [address], [id number], [place]. tel:[phone] [facility], [address] [place] [address], [id number] , [phone] [facility] No Information 2 Willtasamra Deba. [address] [place] [address], [id number], [place]. tel:[phone] Referring Provider: Karen Rodriguez, [address] [place] [address], [id number] . tel:[phone] [facility], [address] [place] [address], [id number] , tel:[phone] [facility] annual exam (chief complaint) PresbyopiaMyopiaOthe r and combined forms of senile cataractVitreous degeneration 1 Filijasmeetrosio Deba. [address] [place] [address], [id number], [place]. tel:[phone] Referring Provider: Karen Rodriguez, [address] [place] [address], [id number] . tel:[phone] [facility], [address] [place] [address], [address] [place] [address] , tel:[phone] [facility] No Information 1 Willtasamra Marvina. [address] [place] [address], [id number], [place]. tel:[phone] [facility], [address] [place] [address], [id number] , tel:[phone] [facility] No Information 0 Berjasmeettab Deblta. [address] [place] [address], [id number], [place]. tel:[phone] Family History Family Member Type Diagnosis Age [...] asthma Payers Payer name Insurance type Covered libertarian ID Authormindy tiyareli(s) MARLYN CI [id number] Social History Type Description Quantity Date Captured Comments Sex Male Smoking Status No Information Chief Complaint And Reason For Visit No Information Reason For Referral Reason For Referral No Information History Of Present Illness Encounter Date Complaint History Of Prese nt Illness No Information Functional Status Date Functional Assessmen t No Information Instructions Date Instruction Additional Infor matlizeth - Return in 1 year with EB [...]
== END 2024-01-23 09:35 | disposition home or self-care (01) ==
LOC: ANHBWCLAB 09:35
PROVIDERS: PCP Nurse Practitioner Adult Health; Visit Provider Nurse Practitioner Adult Health
DX: Z12.5 Encounter for screening for malignant neoplasm of prostate (principal); E29.1 Testicular hypofunction; I10 Essential (primary) hypertension; E55.9 Vitamin D deficiency, unspecified; R73.9 Hyperglycemia, unspecified
CPT/HCPCS: 36415; 80053; 82306; 83036; 84153; 84402; 84403; 85027

== ENCOUNTER 2024-02-07 09:02 | Outpatient (CLI) | payer OTHER, SELFPAY ==
[2024-02-07 19:02] LABS: Hepatitis B Surface Antigen Negative (Negative)
[2024-02-07 19:07] LABS: HAV RESULT Negative (Negative); Hepatitis B Core IgM Result Negative (Negative)
[2024-02-07 19:19] LABS: Hepatitis C Virus Antibody Negative (Negative)
== END 2024-02-07 09:03 | disposition home or self-care (01) ==
LOC: ANHBWCLAB 09:03
PROVIDERS: PCP Nurse Practitioner Adult Health; Visit Provider Nurse Practitioner Adult Health
DX: R74.8 Abnormal levels of other serum enzymes (principal)
CPT/HCPCS: 36415; 80074

== ENCOUNTER 2024-02-10 08:19 | Outpatient (CLI) | payer OTHER, SELFPAY ==
--- NOTE | ~2024-02-10 | US_ITS ---
Limited Abdominal Sonogram: Real-time sonographic imaging of the right upper quadrant was performed. Clinical History: Abnormal enzyme levels Findings: The liver appears echogenic, with no evidence of mass lesion or bile duct dilatation. Main portal vein demonstrates normal direction of flow. The gallbladder is well distended, and appears no rmal with no evidence of gallstone or wall thickening. The common bile duct measures 4 mm. The visua lized pancreas, aorta, and IVC are unremarkable. Impression: Diffuse fatty infiltration of the liver. Reviewed, dictated and finalized at location [facility] Impression: Diffuse fatty infiltration of the liver.
== END 2024-02-10 08:20 | disposition home or self-care (01) ==
PROVIDERS: PCP Family Medicine; Visit Provider Nurse Practitioner Adult Health
DX: R74.8 Abnormal levels of other serum enzymes (principal); K76.0 Fatty (change of) liver, not elsewhere classified
CPT/HCPCS: 76705

== ENCOUNTER 2024-07-24 09:42 | Outpatient (CLI) | payer MEDICARE, SELFPAY ==
--- OUTSIDE RECORDS SUMMARY | 2024-07-24 10:41 | XMS_ITS | Encounter Summary ---
Author Organization [facility] Address [address] [place] [address] Care Team Providers Care Labourers Name Role Phone Mike Mitchell MD Primary Care Provider [phone] Encounter Details Date Type Department Care Team (Late Contact Info) Description 06/15/2024 Results Follow-Up [facility] Gastroenterology [place] [address] [facility] [address] [place] [address] Prabhjot Ryder MD [address] [facility] [address] [place] [address] PATHOLOGY Social History Tobacco Use Types Packs/Day Years Used Date Smoking Tobacco: Never Alcohol Use Standard Drinks/Week Comments Yes 0 (1 standard drink = 0.6 oz pur e alcohol) socially Feeling Safe Answer Date Recorded Are you in a relationship wi th someone who hurts you emotionally and/or physically? No 06/12/2024 Sex and Gender Information Value Date Recorded Sex Assigned at Not on file Legal Sex Male 10:17 AM CDT Gender Identity Not on file Sexual Orientation Not on file documented as of this encounter Plan of Treatment Upcoming Encounters Date Type Department Care Team (Late st Contact Info) Description 09/26/2024 11:00 AM CDT Office Visit [facility] Gastroenterology Lexus Chappell [address] [facility] [address] [place] [address] [place] [address] [address] [facility] [address] [place] [address] documented as of this encounter Visit Diagnoses Not on filedocumented in this encounter Care Teams Labourers Relationship Specialty Start Date End Date Mike Mitchell MD [address] [place] [address] PCP - General Family Practice 09/28/22 documented as of this encounter
--- OUTSIDE RECORDS SUMMARY | 2024-07-24 10:41 | XMS_ITS | Encounter Summary ---
Author Organization [facility] Address [address] [place] [address] Care Team Providers Care Radiological Metallurgist Name Role Phone Mike Mitchell MD Primary Care Provider [phone] Encounter Details Date Type Department Care Team (Latest Contact Info) Description 07/12/2024 Results Follow-Up [facility] Gastroenterology Lexus Chappell [address] [address] [place] [facility] [address] [place] [address] [place] [address] [address] [place] [facility] [address] [place] [address] CALPROTECTIN, FECAL Social History Tobacco Use Types Packs/Day Years [...] Description 09/26/2024 11:00 AM CDT Office Visit [facility] Gastroenterology Lexus Chappell [address] [place] [address] [address] [place] [address] [place] [address] [address] [place] [facility] [address] [place] [address] documented as of this encounter Visit Diagnoses Not on filedocumented in this encounter Care Teams Radiological Metallurgist Relationship Specialty Start Date End Date Mike Mitchell MD [address] [place] [phone] PCP - General Family Practice 09/28/22 documented as of this encounter
--- OUTSIDE RECORDS SUMMARY | 2024-07-24 10:41 | XMS_ITS | Encounter Summary ---
Author Organization [facility] Address [address] [facility] [place] [address] Care Team Providers Care Corporate Planner Name Role Phone Unavailable Primary Care Provider Unavailabl e Encounter Details Date Type Department Care Team (Late st Contact Info) Description 09/17/2022 Lab Requisition [facility] - DermPath Lab [address] [place] [phone] Kishore Cuenca MD [facility] DERMATOLOGY [address] [place] [phone] Neoplasm of uncertain behavior of skin Social History Tobacco Use Types Packs/Day Years Used Date Smoking Tobacco: Never Assessed Sex and Gender Information Value Date Recorded Sex Assigned at Not on file Legal Sex Male 2:06 PM CDT Gender Identity Not on file Sexual Orientation Not on file documented as of this encounter Plan of Treatment Not on file documented as of this encounter Procedures Procedure Name Priority Date/Time Associated Diagnosis Comments DERMATOPATHOLOGY Routine 09/17/2022 12:0 0 AM CDT Neoplasm of uncertain behavior of skin documented in this encounter Results * DERMATOPATHOLOGY (09/17/2022 12:00 AM CDT) Case Report Dermatopathology Report Case: [id number] Authorizing Provider: Kishore Cuenca MD Collected: 09/17/2022 12:00 AM Ordering Location: [facility] DermPath Lab Received: 09/20/2022 01:06 PM Pathologist: Solomon Lima MD Specimen: Skin, left lateral thigh 3 5:01 PM CDT DERMATOPATHOLOGY LABORATORY Final Diagnosis Specimen A. 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 Prurigo modular is 3 5:01 PM CDT DERMATOPATHOLOGY LABORATORY Gross Description Specimen A: Received is one formalin filled container labeled with the patient's name and designated left lateral thigh. The specimen consists of a shave biopsy measuring [id number] mm. Jar 0. 3 5:01 PM CDT DERMATOPATHOLOGY LABORATORY Microscopic Description Specimen A. SKIN, left lateral thigh: Sections show acanthosis, hypergranulosis, and hyperkeratosis. The papillary dermis is fibrotic. 3 5:01 PM CDT DERMATOPATHOLOGY LABORATORY Disclaimer An external and internal positive and negative controls are appropriate for the histochemical, immunohistochemical and immunofluorescence stain(s) in this case (if any), except where stated explicitly. The performance characteristics of the stain(s) cited in this report were developed and its performance characteristic determined by the Dermatopathology Laboratory at [facility], directed by Dr. Blanco Lima. These tests need not be, and therefore are not, approved by the [place] Food and Drug Administration. The tests are used for clinical purposes. Billing Codes Specimen Charges Stain Charges 16837 1 3 5:01 PM CDT DERMATOPATHOLOGY LABORATORY Embedded Images 3 5:01 PM CDT DERMATOPATHOLOGY LABORATORY Pathology/Cytolog y TISSUE SPECIMEN FROM SKIN / Unknown 09/17/2022 09/20/2022 1:06 PM CDT us Kishore Cuenca MD LAB - PATHOLOGY/CYTOLOGY SHAWE ZOË Final Result DERMATOPATHOLOGY LABORATORY [facility] - Department of Dermatology [address] [phone] documented in this encounter Visit Diagnoses Diagnosis Neoplasm of uncertain behavior of skin documented in this encounter
--- OUTSIDE RECORDS SUMMARY | 2024-07-24 10:41 | XMS_ITS | Clinical Summary ---
Author Organization [facility] Address [address] [place] [address] Care Team Providers Care Privacy Attorney Name Role Phone Unavailable Primary Care Provider Unavailabl e Source Comments [facility],non-owned Affiliates and Associated Physician Practices is amultiple site organization consisting of ambulatory clinics and hospital sitesin [place] and [place]. This disclosure is being madepursuant to the Care Everywhere program and may not contain all information available regarding this patient. Last updated 17.[facility] [employer] Social History Tobacco Use Types Packs/Day Years [...] 03/06/1977 DTAP/TDAP/TD VACCINES (1 - Tdap) 1978 PNEUMOCOCCAL VACCINE 50+ (1 of 1 - PCV) 2009 ZOSTER VACCINE (1 of 2) 2009 COVID-19 VACCINE ( - 2023-2 5 season) 2023 DEPRESSION SCREENING 02/08/2024 INFLUENZA VACCINE (Season Ended) 2024 Respiratory Syncytial Virus (RSV) Vaccine Pt: or [...] patient's age to complete this topic MENINGOCOCCAL (Group B) VACC INE SHARED DECISION-MAKING Aged Out No longer eligibl e based on patient's age to complete this topic MENINGOCOCCAL GROUPS A/C/Y/W VACCINE Aged Out No longer eligible b ased on patient's age to complete this topic Insurance [facility]
--- OUTSIDE RECORDS SUMMARY | 2024-07-24 10:42 | XMS_ITS | Clinical Summary ---
Author Organization [facility] Address [address] [place] [phone] Care Team Providers Care Beer Merchant Name Role Phone Mike Mitchell MD Primary Care Provider [phone] Allergies Active Allergy Reactions Criticality Noted Date Comments Fruit Extracts Hives Medium 06/09/2015 Tomatoes and oranges Azathioprine Other (See comments) Low 04/05/2017 Pancreatitis (Imuran) Winthrop Juice Hives Medium 09/16/2009 [place] Oil Hives Medium 09/16/2009 Sulfa (Sulfonamide Antibiotics) [...] tabletIndications:Cr ohn's 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 (HCC),High risk medications (not anticoagulants) long-term use [...] (01/21/2022): Added automatically from request for surgery [id number] Nontraumatic incomplete tear of right rotator cu ff 01/21/2022 Overview (01/21/2022): Added automatically from request for surgery [id number] Gastrointestinal hemorrhage 11/16/2020 Crohn's disease of ileum with complication 03/27 Recurrent incisional hernia 03/07/2020 Immunizations Immunization Administration Dates Next Due Hep B Vaccine [...] positive HLD (hyperlipidemia) Low testosterone Crohn's disease (HCC) Motion sickness Family History Medical History [...] on file Legal Sex Male 8:42 AM SUPERINTENDENT HOUSE Gender Identity Not on file Sexual Orientation Straight 04/01/2020 8: 42 PM SUPERINTENDENT HOUSE Obstetrics History Last Filed Vital Signs Vital Sign Reading Time Taken Comments Blood Pressure 130/83 01/13/2023 1:05 PM SUPERINTENDENT HOUSE Pulse 68 01/13/2023 1:10 PM SUPERINTENDENT HOUSE Temperature 36.4 C (97.5 F) 01/13/2023 12:50 PM SUPERINTENDENT HOUSE Respiratory Rate 17 01/13/2023 1:10 PM SUPERINTENDENT HOUSE Oxygen Saturation 95% 01/13/2023 1:10 PM SUPERINTENDENT HOUSE Inhaled Oxygen Concentration - - Weight 116 kg (255 lb 12.8 oz) 01/13/2023 8:52 A M SUPERINTENDENT HOUSE Height 182.9 cm (6') 01/13/2023 8:52 AM SUPERINTENDENT HOUSE Body Mass Index 34.69 01/13/2023 8:52 AM SUPERINTENDENT HOUSE Plan of Treatment Health Maintenance Due Date Last Done Comments Colon Cancer Screening-Colonoscopy 1959 Depression Screening 1960 Hepatitis C Screening 1960 Prostate Cancer Screening-PSA 1959 DTaP/Tdap/Td Vaccine (1 - Tdap) 1970 Pneumococcal vaccine 65+ (1 of 1 - PCV) 2009 Covid-19 Vaccine (3 - 2023-2 5 season) 2023 10/06/2020, 09/09/2020 Fall Risk Assessment 01/14/2024 01/13/2023 Abdominal Aortic Aneurysm (A AA) Screen 2024 12/12/2017, 05/02/2015, 12/18/2013, Additional history exists Well Visit 65+ 2024 Influenza Vaccine (Season Ended) 2024 Hepatitis B Screening Completed 09/08/2016 , 2016, 02/10/2016 Zoster Vaccine Completed 03/27/2019, 01/23/2019 Medical Devices Implanted Type Area Sports Fitness And Wellness Director Device Identifier Shelf Expiration Date Model / Serial / Lot Ethicon Endo Surgery [id number] Square Mesh Surgical Prolene Polypropylene - Sn/A - [id number] Implanted:Qty: 1 on 04/13/2021 by Ky Sheth MD at [facility] Mesh N/A: Abdomen Ethicon Endo Surgery [id number] 12/07/2024 [id number] / N/A / [id number] [employer] Set Implant Arthrex Fibertak Biceps Sterile Latex Free Ar-3670 - [id number] Implanted:Qty: 1 on 02/09/2022 by Shaan Samaniego MD at [facility] Orthopedic Center Left: Shoulder [employer] 10/07/2026 AR-3670 / / [id number] [employer] Corkscrew Suturetape 5.5mm 14.7mm Bioabsorbable Full Thread 1.3mm Ar-1927bct - [id number] Implanted:Qty: 1 on 02/09/2022 by Shaan Samaniego MD at [facility] Orthopedic [place] Left: Humerus [employer] Inc 12/08/[address] / / [id number] [employer] Swivelock C 4.75mm 19.1mm Closed Eyelet Vent [place] Suture Ar-2324bcc - [id number] Implanted:Qty: 1 on 02/09/2022 by Shaan Samaniego MD at [facility] [employer] 12/07/2025 AR-2324B CC / / [id number] [employer] Swivelock C 4.75mm 19.1mm Closed Eyelet Vent [place] Suture Ar-2324bcc - [id number] Implanted:Qty: 1 on 02/09/2022 by Shaan Samaniego MD at [facility] Orthopedic [place] Shoulder [employer] 12/07/2025 AR-2324B CC / / [id number] [employer] System Biceps [place] Slotted Drill Guide 1.9mm Drill Fibertak Ar-3670 - [id number] Implanted:Qty: 1 on 01/13/2023 by Shaan Samaniego MD at [facility] Orthopedic [place] Right: Shoulder [employer] 10/08/2027 AR-3670 / / [id number] Insurance [facility] [id number] [employer] OPEN ACCESS [facility] [id number] Advance Directives For more information, please contact: [phone] * Full Code (Latest Code Status on [...] 7:33 AM 11/14/2020 2:37 PM Care Teams Beer Merchant Relationship Specialty Start Date End Date Mike Mitchell MD PCP - General Family Practice 01/16/21
--- OUTSIDE RECORDS SUMMARY | 2024-07-24 10:42 | XMS_ITS | Continuity of Care Document ---
Author Organization [facility], TD Address [address] [place] [address] Phone Care Team Providers Care Carrier Blower Name Role Phone Michael MORGAN, Deba Unavailable Unavailable Allergies, Adverse Reactions, Alerts Substance Reaction Status Criticality iron Active No Information Medications Medication Instructions Dosage Effective Dates (start - stop) Status Comments LISINOPRIL (unknown strength) Not Available - Active POTASSIUM (unknown strength) Not Available - Active NEXIUM (unknown strength) Not Available - Active Procedures Procedure Date Vision [facility] frames purchases Trifocal Lens Anti-reflective coating TINT Slip On Sunglasses EYE EXAM, EXISTING PATIENT VISION REFRACTION UPDATE Advance Directives Directive Yes / No Effective Date File Name No Information Encounters Encounter Description Practice Location Reason(s) For Visit Diagnoses Date Provider Providers Copied on Encounter [facility], [facility], [address] [place] [address], [id number] , tel:[phone] [facility] No Information 2 Michael Jones. [address] [place] [address], [id number], [place]. tel:[phone] Referring Provider: Karen Rodriguez, [address] [place] [address], [id number] . tel:[phone] [facility], [facility], [address] [place] [address], [id number] , tel:[phone] [facility] annual exam (chief complaint) PresbyopiaMyopiaOthe r and combined forms of senile cataractVitreous degeneration 1 Michael Dbelinda. [address] [place] [address], [id number], . tel:[phone] Referring Provider: Karen Rodriguez, [address] [place] [address], [id number] . tel:[phone] [facility], [address] [place] [address], [address] [place] [address] , tel:[phone] [facility] No Information 1 Michael Jones. [address] [place] [address], [id number], . tel:[phone] [facility], [address] [place] [address], [id number] , tel:[phone] [facility] No Information 0 Michael Jones. [address] [place] [address], [id number], . tel:[phone] Family History Family Member Type Diagnosis Age [...] Disorders Payers Payer name Insurance type Covered libertarian ID Authoriza tiyareli(s) [facility] [id number] Social History Type Description Quantity Date Captured Comments Sex Male Smoking Status No Information Chief Complaint And Reason For Visit No Information Reason For Referral Reason For Referral No Information History Of Present Illness Encounter Date Complaint History Of Prese nt Illness No Information Functional Status Date Functional Assessmen t No Information Instructions Date Instruction Delaney Dustin carr - Return in 1 year with [...]
--- OUTSIDE RECORDS SUMMARY | 2024-07-24 10:42 | XMS_ITS | Clinical Summary ---
Author Organization [facility] Address [address] [place] [address] Phone Care Team Providers Care Product Grader Name Role Phone Mike Mitchell MD Primary Care Provider [phone] Allergies Active Allergy Reactions Criticality Noted Date Comments Azathioprine Other (See Comments) 10/26/2022 Caused pancreatitis Iron Rash Low 08/16/2013 Alfalfa Juice Hives,Itching High 09/16/2009 Sulfa (Sulfonamide Antibiotics) Hives,Rash High 06/09/2015 Tomato Hives,Shortness of Breath/Wheezing High 09/16/2009 Cerner Allergy Text Annotation: Tomatoes Medications esomeprazole (NexIUM) 20 mg Capsule, Delayed Release(E.C.) [...] CALCIUM CARBONATE-VITAMIN D3 ORAL Take by mouth. Activ e pregabalin (LYRICA) 50 mg Capsule Take 50 mg by mouth. Active traZODone (DESYREL) 50 mg tablet Take 50 mg by mouth daily at bedtime. Active tadalafiL (CIALIS) 20 mg tablet Take 20 mg by mouth 1 time daily as needed for Erectile Dysfunction. Active multivitamin (DAILY-SCARLETT) tablet Take 1 Tablet by mouth daily. Active iron,carbonyl/ascor bic acid (VITRON-C ORAL) Take by mouth. Activ e MAGNESIUM OXIDE ORAL Take by mouth. Activ e cyanocobalamin (VITAMIN B-12) 100 mcg tablet Take 100 mcg by mouth daily. Active amlodipine besylate (AMLODIPINE ORAL) Take by mouth. Active mesalamine (CANASA) 1,000 mg SuppositoryIndicati ons:Proctitis INSERT 1 SUPPOSITORY (1,000 MG) BY RECTUM DAILY AT BEDTIME. 90 Suppository 1 024 Active pravastatin (PRAVACHOL) 10 mg tablet Take 10 mg by mouth daily with supper. Active upadacitinib (Rinvoq) 30 mg Tablet Sustained Release 24HRIndications:Doorperson hn's disease of colon with other complication (CMS/HCC) Take 30 mg by mouth daily. 90 Tablet 2 025 Active guselkumab (Tremfya Pen) 200 mg/2 mL Pen InjectorIndications :Crohn's disease of small intestine without complication (CMS/HCC) Inject 400mg under the skin (given as two consecutive injections of 200 mg each) at Weeks 0, 4, and 8 4 mL 3 025 Active guselkumab (Tremfya Pen) 200 mg/2 mL Pen InjectorIndications :Crohn's disease of small intestine without complication (CMS/HCC) Inject 2 mL (200 mg) by subcutaneous injection every 28 days. 2 mL 11 025 Active guselkumab (Tremfya Pen) 200 mg/2 mL Pen InjectorIndications :Crohn's disease of small intestine without complication (CMS/HCC) Inject 400mg under the skin (given as two consecutive injections of 200 mg each) at Weeks 0, 4, and 8 4 mL 3 025 2024 Disconti nued(Reo rder) guselkumab (Tremfya Pen) 200 mg/2 mL Pen InjectorIndications :Crohn's disease of small intestine without complication (CMS/HCC) Inject 2 mL (200 mg) by subcutaneous injection every 28 days. 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 [address] [place] [phone] Theresa Llanes RN Crohn's disease of small intestine without complication (CMS/HCC) 07/12/2024 Results Follow-Up [facility] Gastroenterology [facility] [address] [facility] [address] [address] Kamilla Krause MD CALPROTECTIN, FECAL 07/05/2024 10:00 AM CDT Office Visit [facility] [address] [facility] [address] [place] [address] Kamilla Krause MD Crohn's disease of small intestine without complication (CMS/HCC) (Primary Dx); Immunodeficiency due to treatment with immunosuppressive medication 06/15/2024 Results Follow-Up [facility] Gastroenterology [facility] [address] [facility] [address] [place] [address] Prabhjot Ryder MD PATHOLOGY 06/12/2024 7:40 AM CDT - 06/12/2024 8:20 AM CDT [facility] [address] [place] [address] Prabhjot Ryder MD POUCHOSCOPY 06/12/2024 7:33 AM CDT Anesthesia Event [facility] [address] [place] [address] Reynold Mcpherson MD 06/12/2024 6:50 AM CDT - 06/12/2024 8:35 AM CDT Hospital Encounter [facility] GI Lab [facility] [address] [place] [address] Prabhjot Ryder MD Crohn's disease of colon with other complication (CMS/HCC) Discharge Disposition: Home or Self Care 06/12/2024 Telephone [facility] Gastroenterology [facility] [address] [place] [address] Kamilla Krause MD Needs Appointment 05/23/2024 Abstract [facility] Gastroenterology [place] [address] [facility] [address] [place] [address] Carla Lind 05/23/2024 Medication Prior Auth Encounter [facility] Gastroenterology [facility] [address] [place] [address] Luz Frank 05/23/2024 Abstract [facility] Gastroenterology [place] [address] [facility] [address] [place] [address] Prabhjot Ryder MD 04/30/2024 Results Follow-Up [facility] Gastroenterology [place] [address] [facility] [address] [place] [address] Prabhjot Ryder MD QUANTIFERON TB GOLD 04/25/2024 External Device Data STL ABSTRACTION Provider, Abstract [...] Sign Reading Time Taken Comments Blood Pressure 141/96 06/12/2024 8:15 AM CDT Pulse 72 07/05/2024 9:58 AM CDT Temperature 36.9 C (98.4 F) 07/05/2024 9:58 AM CDT Respiratory Rate 18 06/12/2024 8:15 AM CDT Oxygen Saturation 94% 07/05/2024 9:58 AM CDT Inhaled Oxygen Concentration - - Weight 112.8 kg (248 lb 9.6 oz) 07/05/2024 9:58 AM CDT Height 182.9 cm (6') 07/05/2024 9:58 AM CDT Body Mass Index 33.72 07/05/2024 9:58 AM CDT Plan of Treatment Upcoming Encounters Date Type Department Care Team (Late st Contact Info) Description 09/26/2024 11:00 AM CDT Office Visit [facility] Gastroenterology [facility] [address] [place] [address] [place] [address] [place] [address] Health Maintenance Due Date Last Done Comments Pre-Diabetes and Diabetes Screening 1960 DTAP/TDAP/TD VACCINES (1 - Tdap) 1978 PNEUMOCOCCAL VACCINE 50+ YEA RS (1 of 2 - PCV) 1978 FIT-DNA Q 3 years 2004 FIT/FOBT Q 1 year 2004 Flex Sig/CT Colonography Q 5 years 2004 INFLUENZA VACCINE (#1) 2023 COLORECTAL SCREENING 07/13/2028 07/13/2018, 07/13/2018, 03/17/2017 Colorectal Cancer Screening 07/13/2028 RSV VACCINE (60+ or ) (1 - 1-dose 75+ series) 2034 ZOSTER VACCINE Completed 03/27/2019, 01/23/2019 Procedures Procedure Name Priority Date/Time Associated Diagnosis Comments CALPROTECTIN, FECAL Routine 07/05/2024 1 :20 PM CDT Crohn's disease of small intestine without complication (CMS/HCC) POUCHOSCOPY REPORT 06/12/2024 8: 07 AM CDT PATHOLOGY Pathology 06/12/2024 7:54 AM CDT Crohn's disease of colon with other complication (CMS/HCC) POUCHOSCOPY 06/12/2024 7:40 AM CDT Crohn's disease of colon with other complication (CMS/HCC) QUANTIFERON TB GOLD Routine 04/26/2024 1 :06 PM CDT Crohn's disease of colon with other complication (CMS/HCC) from Last 3 Months Results * (ABNORMAL) CALPROTECTIN, FECAL (07/05/2024 1:20 PM CDT) CALPROTECTIN, FECAL 414(H) mcg/g [facility], Comment: Reference Range: <50 Normal 50-120 Borderline >120 Elevated Calprotectin in Crohn's disease and ulcerative colitis can be five to several thousand times above the reference population (50 mcg/g or less). Levels are usually 50 mcg/g or less in healthy patients and with irritable bowel syndrome. Repeat testing in 4-6 weeks is suggested for borderline values. Test Performed at: [facility], [address] [place] [id number] Carlotta Herrera MD,PhD,MARIA INES Stool STOOL SPECIMEN / Unknown 07/05/2024 1:20 PM CDT 07/06/2024 3:43 AM CDT Kamilla Krause MD BODY FLUIDS AND STOOLS [facility] Result [facility] [phone] [facility], [address] [place] [address] * POUCHOSCOPY REPORT (06/12/2024 8:07 AM CDT) Narrative Procedure Note Prabhjot Ryder MD - 06/12/2024 8:07 AM CDT [facility] Endoscopy Patient Name: Kris Spence Procedure Date: 06/12/2024 Date of : 1960 Admit Type: Outpatient Attending MD: Prabhjot Ryder MD, Procedure: Pouchoscopy Indications: Assess therapeutic response to therapy of Crohn's disease of the small bowel and colon Patient Profile: 64y/oM here for response for Crohns of the pouch, now on Rinvoq. Symptomatically improved. Providers: Prabhjot Ryder MD Referring MD: Mike Mitchell MD Medicines: Monitored Anesthesia Care Complications: No immediate complications. Procedure: Informed consent was obtained for the procedure, including moderate sedation after risks were discussed. Based on the pre-procedure assessment, including review of the patient's medical history, medications, allergies, and review of systems, the patient was deemed to be an appropriate candidate for sedation. A timeout was performed. Continuous ECG monitoring, pulse oximetry, blood pressure monitoring, and direct observation were performed. The was introduced through the anus and advanced to the meghna-terminal ileum. Informed consent was obtained for the procedure, including moderate sedation after risks were discussed. Based on the pre-procedure assessment, including review of the patient's medical history, medications, allergies, and review of systems, the patient was deemed to be an appropriate candidate for sedation. A timeout was performed. Continuous ECG monitoring, pulse oximetry, blood pressure monitoring, and direct observation were performed.The procedure was performed without difficulty. The patient tolerated the procedure well. The quality of the bowel preparation was adequate. Estimated Blood Loss: Estimated blood loss: none. Findings: Patient is status-post IPAA. The perianal and digital rectal examinations were normal. The afferent limb contained a benign-appearing, intrinsic moderate to severe stenosis measuring less than one cm (in length) x 1 cm (inner diameter) that was traversed. Biopsies were taken with a cold forceps for histology. Localized inflammation characterized by congestion (edema), erythema and deep ulcerations was found in the pouch Inlet. The inflammation was moderate in severity and severe. Biopsies were taken with a cold forceps for histology. Diffuse inflammation characterized by congestion (edema), erosions and erythema was found in the rectal cuff. The inflammation was moderate in severity. Biopsies were taken with a cold forceps for histology. Retroflexion otherwise normal. The exam was otherwise without abnormality. 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 Biopsied. - Crohn's disease. Inflammation was found. This was moderate in severity and severe. Biopsied. - Crohn's disease. Inflammation was found. This was moderate in severity. Biopsied. - Overall, disease appears worse than previous on new therapy. - The examination was otherwise normal. Recommendation: - Discharge patient to home (ambulatory). - Resume previous diet. - Continue present medications. - Await pathology results. - Will place referral to IBD center given refractory disease despite therapies and history of crohns within altered anatomy (pouch). Prabhjot Ryder MD 06/12/2024 8:07:15 AM This report has been signed electronically. Number of Addenda: [address]; [place] [address] Prabhjot Ryder MD GI PROCEDURE ORDERABLES Jayde l Result * PATHOLOGY (06/12/2024 7:54 AM CDT) CASE REPORT Surgical Pathology Report Case: [id number] Authorizing Provider: Prabhjot Ryder MD Collected: 06/12/2024 07:54 AM Ordering Location: [facility] GI Lab Jaylan Sujit Received: 06/12/2024 10:14 AM Pathologist: Luke Manzano MD Specimens: A) - Small Intestine, bx B) - Other, specify, bx pouch inlet C) - Rectum, bx cuff 3:42 PM CDT [facility] FINAL DIAGNOSIS A. Small intestine, biopsy: - Chronic active ileitis B. Pouch inlet, biopsy: - Enteric mucosa with severe chronic active inflammation and granulation tissue C. 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 Received in the first container additionally labeled small intestine biopsy are 3 pieces of pink-arredondo tissue ranging from 0.1 to 0.2 cm in greatest dimension. All are submitted in cassette A1. Received in the second container additionally labeled pouch inlet biopsy are 3 pieces of pink-arredondo tissue ranging from 0.1 to 0.2 cm in greatest dimension. All are submitted in cassette B1. Received in the third container additionally labeled rectum cuff biopsy are 2 pieces of pink-arredondo tissue measuring 0.1 and 0.6 cm in greatest dimension. All are submitted in cassette C1. [facility] 5 3:42 PM [facility] MICROSCOPIC DESCRIPTION The slides are labeled [id number] and Kris Spence. A. Sections show small bowel mucosa with a marked increase of lymphocytes and plasma cells, and brisk scattered active inflammation. No granulomas are identified. Negative for dysplasia. B. Sections show enteric mucosa with brisk scattered plasma cells, lymphocytes, and neutrophils. There is also granulation tissue. No granulomas are identified. Negative for dysplasia. C. Sections show colonic mucosa with occasional scattered neutrophils in the lamina propria. There is mild crypt architectural distortion. No granulomas are identified. Negative for dysplasia. 5 3:42 PM [facility] OPERATIVE PROCEDURE 1: POUCHOSCOPY 5 3:42 PM [facility] CLINICAL INFORMATION A Crohn's Crohn's Crohn's disease of colon with other complication (CMS/HCC) [K50.118] K50.118-Crohn's disease of colon with other complication (CMS/HCC) 5 3:42 PM [facility] COMMENT Special stain, immunohistochemical, and/or in situ hybridization results are interpreted with controls that demonstrate appropriate staining reactions. Note on use of immunohistochemistry reagents and in situ hybridization probes: These tests were developed and their performance characteristics determined by [facility], Department of Laboratory Medicine. It has not [...] part or completely in the following laboratories: [facility], CLIA #[id number] [address] [place] [address] [facility] #[id number] [address] [place] [address] [facility], CIERRAIA #[id number] [address] [facility] [place] [address] This report was created with the [employer] voice-activated dictation system. Inherent to this system is the possibility of syntax, grammar, punctuation and other errors that could impact the interpretation of the report. If there are interpretative questions about aspects of this report, please contact the performing pathologist. 3:42 PM CDT [facility] Tissue (Small Intestine) Collection / Unknown 06/12/2024 7:54 AM CDT 06/12/2024 10:14 AM CDT Comment:Crohn's Tissue specimen (specimen) (Other, specify) Collection / Unknown 06/12/2024 7:55 AM CDT 06/12/2024 10:14 AM CDT Comment:Crohn's Tissue specimen (specimen) ENTIRE RECTUM / Unknown 06/12/2024 7:55 AM CDT 06/12/2024 10:14 AM CDT Comment:Crohn's Prabhjot Ryder MD PATHOLOGY/CYTOLOGY ORDERABLE S Final Result [facility]# [id number] [address] [place] [address] * QUANTIFERON TB GOLD (04/26/2024 1:06 PM CDT) QUANTIFERON TB GOLD PLUS NEGATIVE NEGATIVE [facility] Comment: Negative test result. M. tuberculosis complex infection unlikely. NIL 0.16 IU/mL [facility] MITOGEN-NIL 7.59 IU/mL [facility] TB1 AG - NIL 0.03 IU/mL [facility] TB2 AG - NIL <0.00 IU/mL [facility] Comment: The Nil [...] T-lymphocytes. For additional information, please refer to https://education.Mavenlink/faq/UWE158 (This link is being provided for informational/ educational purposes only.) FASTING:NO FASTING: NO Test Performed at: [facility] [address] [facility] [place] [address] Rome Castillo MD Blood 04/26/2024 1:06 PM CDT 04/26/2024 1:06 PM CDT us Prabhjot Ryder MD CHEMISTRY ORDERABLES Final R esult [facility] [phone] [facility] [address] [place] [address] from Last [address] [place] [address] [employer] [facility] Address: [facility] [id number] [place] [address] RX [employer] Medicare Part D Advance Directives For more information, please contact: [phone] * Full Code (Latest Code Status on File) Date Activated Date Inactivated Comments 06/12/2024 7:05 AM 06/12/2024 10:54 AM * Full Code Date Activated Date Inactivated Comments 01/02/2024 10:02 AM 01/02/2024 2:37 PM Care Teams Product Grader Relationship Specialty Start Date End Date Mike Mitchell MD [address] [place] [address] PCP - General Family Practice 09/28/22
--- OUTSIDE RECORDS SUMMARY | 2024-07-24 10:42 | XMS_ITS | Referral Summary ---
Author Organization [facility] Address [address] [place] [address] Care Team Providers Care Executive Creative Director Name Role Phone Mike Mitchell MD Primary Care Provider [phone] Allergies Active Allergy Reactions Criticality Noted Date Comments Fruit Extracts Hives Medium 06/09/2015 Tomatoes and oranges Azathioprine Other (See comments) Low 04/05/2017 Pancreatitis (Imuran) [place] Juice Hives Medium 09/16/2009 [place] Oil Hives Medium 09/16/2009 Sulfa (Sulfonamide Antibiotics) [...] morning Active Klor-Con M20 20 mEq CR tabletIndications:caeg pplement Take 1 tablet (20 mEq total) [...] (01/21/2022): Added automatically from request for surgery [id number] Nontraumatic incomplete tear of right rotator cu ff 01/21/2022 Overview (01/21/2022): Added automatically from request for surgery [id number] Gastrointestinal hemorrhage 11/16/2020 Crohn's disease of ileum [...] on file Legal Sex Male 8: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 Gender Identity Not on file Sexual Orientation Straight 04/01/2020 8: 42 PM SERVICE CENTER SUPERVISOR Last Filed Vital Signs Vital Sign Reading Time Taken Comments Blood Pressure 130/83 01/13/2023 1:05 PM SERVICE CENTER SUPERVISOR Pulse 68 01/13/2023 1:10 PM SERVICE CENTER SUPERVISOR Temperature 36.4 C (97.5 F) 01/13/2023 12:50 PM SERVICE CENTER SUPERVISOR Respiratory Rate 17 01/13/2023 1:10 PM SERVICE CENTER SUPERVISOR Oxygen Saturation 95% 01/13/2023 1:10 PM SERVICE CENTER SUPERVISOR Inhaled Oxygen Concentration - - Weight 116 kg (255 lb 12.8 oz) 01/13/2023 8:52 A M SERVICE CENTER SUPERVISOR Height 182.9 cm (6') 01/13/2023 8:52 AM SERVICE CENTER SUPERVISOR Body Mass Index 34.69 01/13/2023 8:52 AM SERVICE CENTER SUPERVISOR Plan of Treatment Not on file Medical Devices Implanted Type Area Director Of Business Operations Device Identifier Shelf Expiration Date Model / Serial / Lot Ethicon Endo Surgery Spm3xl [id number] Square Mesh Surgical Prolene Polypropylene - Sn/A - [id number] Implanted:Qty: 1 on 04/13/2021 by Ky Sheth MD at [facility] Mesh N/A: Abdomen Ethicon Endo Surgery [id number] 12/07/2024 SPM3XL / N/A / [id number] Arthrex Inc Set Implant Arthrex Fibertak Biceps Sterile Latex Free Ar-3670 - [id number] Implanted:Qty: 1 on 02/09/2022 by Shaan Samaniego MD at [facility] Left: Shoulder Arthrex Inc 10/07/2026 AR-3670 / / [id number] Arthrex Inc Corkscrew Suturetape 5.5mm 14.7mm Bioabsorbable Full Thread 1.3mm Ar-1927bct - [id number] Implanted:Qty: 1 on 02/09/2022 by Shaan Samaniego MD at [facility] [place] Left: Humerus Arthrex Inc 12/08/20[address] AR-[address] / / [id number] Arthrex Inc Swivelock C 4.75mm 19.1mm Closed Eyelet Vent [place] Suture Ar-2324bcc - [id number] Implanted:Qty: 1 on 02/09/2022 by Shaan Samaniego MD at [facility] Ar[employer]rex Inc 12/07/2025 AR-2324B CC / / [id number] Arthrex Inc Swivelock C 4.75mm 19.1mm Closed Eyelet Vent [place] Suture Ar-2324bcc - [id number] Implanted:Qty: 1 on 02/09/2022 by Shaan Samaniego MD at [facility] [place] Shoulder Arthrex Inc 12/07/2025 AR-2324B CC / / [id number] Arthrex Inc System Biceps [place] Slotted Drill Guide 1.9mm Drill Fibertak Ar-3670 - [id number] Implanted:Qty: 1 on 01/13/2023 by Shaan Samaniego MD at [facility] [place] Right: Shoulder Arthrex Inc 10/08/2027 AR-3670 / / [id number] [place] [address] [facility] [id number] HEALTHLINK OPEN ACCESS [facility] [id number] Advance Directives For more information, please contact: [phone] * Full Code (Latest Code Status on [...] 7:33 AM 11/14/2020 2:37 PM Care Teams Executive Creative Director Relationship Specialty Start Date End Date Mike Mitchell MD PCP - General Family Practice 01/16/21
--- OUTSIDE RECORDS SUMMARY | 2024-07-24 10:42 | XMS_ITS | Clinical Summary ---
Author Organization [facility] Address [address] [place] [address] Care Team Providers Care Ms Sql Developer Name Role Phone Mike Mitchell MD Primary Care Provider [phone] Maldonado Gracia MD Unavailable Allergies Active Allergy Reactions Criticality Noted Date Comments Iron Rash 08/16/2013 [place] Oil Hives Medium 09/16/2009 Sulfa Antibiotics Hives [...] 75 10/12/2023 7:58 AM CDT Temperature 36.7 C (98 F) 03/20/2021 9:09 AM WOODEN FENCE ERECTOR Respiratory Rate 20 10/12/2023 7:58 AM CDT [...] (HCV) Screening 1960 TdaP Immunization 1959 Cologuard 2004 Immunochemical Fecal Occult Blood 2004 Pneumococcal Immunization (5 0+ years) (1 of 1 - PCV) 2009 PSA Discussion 2014 SARS-COV-2 Immunization (3 - 2023- season) 2023 10/06/2020, 09/09/2020 Influenza Immunization (Seas on Ended) 2024 Colonoscopy 07/13/2028 07/13/2018 Colorectal Cancer Screening 07/13/2028 Respiratory Syncytial Virus (RSV) Immunization (Adult) (1 - 1-dose 75+ series) 2034 Hepatitis B Immunization Completed 017, 2016, 02/10/2016 Zoster Immunization Completed 03/27/2019, 01/23/2019 Human Papillomavirus (HPV) Immunization Aged Out No longer eligible b ased on patient's age to complete this topic Meningococcal Immunization (ACWY) Aged Out No longer eligible b ased on patient's age to complete this topic Rotavirus Immunization Aged Out No lo nger eligible based on patient's age to complete [place] [address] [facility] OA Care Teams Ms Sql Developer Relationship Specialty Start Date End Date Mike Mitchell MD [address] [place] [address] PCP - General Family Medicine 03/20/21 Maldonado Gracia MD [address] [place] [phone] Consulting Physician Urology 10/12/23
--- OUTSIDE RECORDS SUMMARY | 2024-07-24 10:42 | XMS_ITS | Encounter Summary ---
Author Organization [facility] Address [address] [place] [address] Phone Care Team Providers Care Marketer Name Role Phone Les Kruger MD Primary Care Provider [phone] Scott Randle DO Primary Care Provider [phone] Mike Mitchell MD Primary Care Provider [phone] Maldonado Gracia MD Unavailable Encounter Details Date Type Department Care Team (Latest Contact Info) Description 08/08/2019 Transcribe Orders [facility] Admitting [address] [place] [address] Les Kruger MD [address] [place] [id number] Hypertension, unspecified type (Primary Dx) Social [...] 206(H) <=200 mg/dL 08/09/2019 3:05 PM CDT [facility] TRIGLYCERIDES 617(H) <150 mg/dL 08/09/2019 3:05 PM CDT [facility] HDL CHOLESTEROL 40.0(L) >40 mg/dL 0 3:05 PM CDT [facility] LDL 08/09/2019 3:05 PM CDT [facility] Comment:Unable to calculate LDL when Triglycerides are greater than 400. Direct measurement of LDL is available upon request as a separate test. VLDL 08/09/2019 3:05 PM CDT [facility] Comment:Cannot be calculated due to Hypertriglyceridemia. CHOL/HDL RATIO 5.2(H) 0.0 - 4.4 08/09/2019 3:05 PM CDT [facility] NON-HDL CHOLESTEROL 166(H) <130 mg/dL 08/09/2019 3:05 PM CDT [facility] LIPID FASTING 08/09/2019 3:05 PM CDT [facility] Blood Venipuncture / Unknown 08/09/2019 9:38 AM CDT 08/09/2019 1:07 PM CDT us Les Kruger MD CHEMISTRY ORDERABLES Final R esult [facility] [address] [place] [address] * (ABNORMAL) CMP (COMPREHENSIVE METABOLIC PANEL) (08/09/2019 9:38 AM CDT) SODIUM 139 136 - 144 mmol/L 08/09/2019 3:05 PM CDT [facility] POTASSIUM 3.3(L) 3.5 - 5.1 mmol/L 08/09/2019 3:05 PM [facility] CHLORIDE 97(L) 100 - 110 mmol/L 08/09/2019 3:05 PM [facility] CO2, VENOUS 28 22 - 32 mmol/L 08/09/2019 3:05 PM [facility] ANION GAP 17.3 8.0 - 20.0 mmol/L 08/09/2019 3:05 PM [facility] GLUCOSE 126(H) 70 - 99 mg/dL 08/09/2019 3:05 PM [facility] BUN 17 8 - 23 mg/dL 08/09/2019 3:05 PM [facility] CREATININE, BLOOD 0.91 0.80 - 1.30 mg/dL 08/09/2019 3:05 PM [facility] BUN/CREATININE RATIO 19 12 - 20 ratio 08/09/2019 3:05 PM [facility] TOTAL PROTEIN 7.0 6.0 - 8.3 g/dL 08/09/2019 3:05 PM [facility] ALBUMIN 4.9 3.5 - 5.2 g/dL 08/09/2019 3:05 PM [facility] Comment: The colormetric methods used for the determination of Albumin may lead to falsely elevated test results in patients suffering from renal failure or insufficiency due to interference with other proteins. A/G RATIO 2.3(H) 1.0 - 2.0 08/09/2019 3:05 PM [facility] CALCIUM 9.8 8.9 - 10.3 mg/dL 08/09/2019 3:05 PM [facility] T BILI 0.4 <=1.2 mg/dL 08/09/2019 3:05 PM [facility] SGOT (AST) 24 <=40 U/L 08/09/2019 3:05 PM [facility] SGPT (ALT) 30 <=41 U/L 08/09/2019 3:05 PM CDT [facility] ALKALINE PHOSPHATASE 81 40 - 130 U/L 08/09/2019 3:05 PM CDT [facility] GFR, EST. NONAFRICAN >60 >=60 08/09/2019 3:05 PM CDT [facility] GFR, EST. >60 >=60 020 3:05 PM CDT [facility] Comment: Creatinine Clearance is the preferred criteria for selecting drug dose adjustments in renally impaired patients. The GFR is provided as additional pertinent clinical information. GFR is reported in mL/min/1.73 sq m. Blood Venipuncture / Unknown 08/09/2019 9:38 AM CDT 08/09/2019 1:07 PM CDT us Les Kruger MD CHEMISTRY ORDERABLES Final R esult [facility] [address] [place] [address] documented in this encounter Visit Diagnoses Diagnosis Hypertension, unspecified type- Primary documented in this encounter Care Teams Marketer Relationship Specialty Start Date End Date Les Kruger MD [address] [place] [address] PCP - General Family Medicine 08/06/13 01/30/20 Scott Randle DO [address] [place] [address] PCP - General Family Medicine 01/31/20 03/19/21 Mike Mitchell MD [address] [place] [address] PCP - General Family Medicine 03/20/21 Maldonado Gracia MD [address] [address] Consulting Physician Urology 10/12/23 documented as of this encounter
[2024-07-24 20:10] LABS: Basophils Percent Auto 0.5 % (0.2-1.2); Eosinophils Absolute Auto 0.1 K/mm3 (0-0.3); Eosinophils Percent Auto 0.9 % (0-4.4); Hematocrit 49.3 % (42.0-52.0); Hemoglobin 16.2 g/dL (14.0-18.0); Immature Granulocyte Absolute 0.06 K/mm3 (0.00-0.031); Immature Granulocyte Percent A 0.8 % (0-0.5); Lymphocytes Absolute Auto 1.49 K/mm3 (0.9-3.2); Lymphocytes Percent Auto 19.9 % (18.3-44.2); Mean Corpuscular HGB Conc 32.9 g/dl (32-36); Mean Corpuscular Hemoglobin 30.7 pg (26-34); Mean Corpuscular Volume 93.4 fl (80-100); Mean Platelet Volume 9.9 fl (7.4-10.4); Monocytes Absolute Auto 0.6 K/mm3 (0.1-0.6); Monocytes Percent Auto 8.1 % (2.6-8.5); Neutrophils Absolute Auto 5.2 K/mm3 (1.3-6.7); Neutrophils Percent Auto 69.8 % (45.5-73.1); Platelet Count Result 260 k/mm3 (150-375); Red Blood Count 5.28 M/mm3 (4.6-6.20); Red Cell Distribution Width 13.6 % (11.5-14.5); White Blood Count 7.5 K/mm3 (4.5-10.0)
[2024-07-24 20:42] LABS: Alanine Aminotransferase 39 U/L (6-50); Albumin Level 4.4 g/dL (3.5-5.1); Alkaline Phosphatase 59 U/L (38-126); Anion Gap 10 mmol/L (4-12); Aspartate Amino Transferase 77 U/L (17-59); Bilirubin,Total 0.6 mg/dL (0.2-1.3); Blood Urea Nitrogen 19 mg/dL (9-20); Calcium 9.7 mg/dL (8.4-10.2); Carbon Dioxide 27 mmol/L (22-30); Chloride 101 mmol/L (98-107); Cholesterol 193 mg/dL (0-200); Estimated Glomerular Filt Rate > 60; Glucose 116 mg/dL (65-110); HDL Direct 39 mg/dL; Magnesium 1.9 mg/dL (1.6-2.3); Potassium 3.9 mmol/L (3.4-5.0); Sodium 138 mmol/L (137-145); Total Protein 7.8 g/dL (6.3-8.2); Triglycerides 194 mg/dL (<150); Uric Acid 6.3 mg/dL (3.5-8.5)
[2024-07-24 20:53] LABS: LDL Cholesterol Direct 93 mg/dL
[2024-07-24 21:13] LABS: Prostate Specific Antigen 1.7 ng/mL (< OR = 4.0)
[2024-07-24 21:16] LABS: Vitamin D 25 Hydroxy 24.5 ng/mL
[2024-07-28 12:33] LABS: Testosterone Free 36.9 pg/mL (35.0-155.0); Testosterone Total 143 ng/dL (250-1100)
== END 2024-07-24 09:43 | disposition home or self-care (01) ==
PROVIDERS: PCP Family Medicine; Visit Provider Nurse Practitioner Adult Health
DX: R79.89 Other specified abnormal findings of blood chemistry (principal); I10 Essential (primary) hypertension; M10.9 Gout, unspecified; E55.9 Vitamin D deficiency, unspecified; Z12.5 Encounter for screening for malignant neoplasm of prostate; Z51.81 Encounter for therapeutic drug level monitoring
CPT/HCPCS: 36415; 80053; 80061; 82306; 82607; 83735; 84153; 84402; 84403; 84550; 85025; G0103

== ENCOUNTER 2024-09-25 09:38 | Outpatient (CLI) | payer MEDICARE, SELFPAY ==
--- OUTSIDE RECORDS SUMMARY | 2011-02-12 19:00 | XMS_ITS | Continuity of Care Document ---
Author Organization [facility], TD Address [address] [place] [phone] Phone Care Team Providers Care Quality Control Engineering Technician Name Role Phone Michael MORGAN, Deba Unavailable Unavailable Allergies, Adverse Reactions, Alerts Substance Reaction Status Criticality iron Active No Information Medications Medication Instructions Dosage Effective Dates (start - stop) Status Comments LISINOPRIL (unknown strength) Not Available - Active POTASSIUM (unknown strength) Not Available - Active NEXIUM (unknown strength) Not Available - Active Procedures Procedure Date Vision [facility] frames purchases Trifocal Lens Anti-reflective coating TINT Slip On Sunglasses EYE EXAM, EXISTING PATIENT VISION REFRACTION UPDATE Advance Directives Directive Yes / No Effective Date File Name No Information Encounters Encounter Description Practice Location Reason(s) For Visit Diagnoses Date Provider Providers Copied on Encounter [facility], [facility], [address] [place] [address], [id number] , tel:[phone] [facility] No Information 2 Michael Jones. [address] [place] [address], [id number], [place]. tel:[phone] Referring Provider: Karen Rodriguez, [address] [place] [address], [id number] . tel:[phone] [facility], [facility], [address] [place] [address], [id number] , tel:[phone] [facility] PresbyopiaMyopiaOthe r and combined forms of senile cataractVitreous degeneration 1 Michael Deblinda. [address] [place] [address], [id number], . tel:[phone] Referring Provider: Karen Rodriguez, [address] [place] [address], [id number] . tel:[phone] [facility], [address] [place] [address], [address] [place] [address] , tel:[phone] [facility] No Information 1 Michael Deblinda. [address] [place] [address], [id number], . tel:[phone] [facility], [address] [place] [address], [address] [place] [address] , tel:[phone] [facility] No Information 0 Michael Jones. [address] [place] [address], [address] [place] [address], . tel:[phone] Family History Family Member Type Diagnosis Age At Onset Mother Problem (finding) asthma Problem (finding) No Family hist ory of Macular Degeneration Mother Problem (finding) Heart Disease Problem (finding) No Family history of St roke Father Problem (finding) HBP Problem (finding) No Family history of Di abetes mellitus Problem (finding) No Family history of Re spiratory Disease Problem (finding) No Family history of Gl aucoma Problem (finding) No Family history of Ar thritis Problem (finding) No Family history of St rabismus Problem (finding) No Family history of Ca taracts Mother Problem (finding) Arthritis Problem (finding) No Family history of Re tinal Disorders Payers Payer name Insurance type Covered alliance party ID Authoriza tiyareli(s) [facility] [id number] Social History Type Description Quantity Date Captured [...]
--- NOTE | ~2024-09-25 | XR_ITS ---
EXAM/PROCEDURE: XR chest 2V - 09/25/2024 9:45 CDT HISTORY: 64 years old Male with R06.00 - Dyspnea, unspecified TECHNIQUE: Two view(s) of the chest. COMPARISON: None available. FINDINGS: LUNGS/ PLEURA: No focal consolidation. No appreciable pneumothorax or large pleural effusion. HEART/ MEDIASTINUM: Heart appears normal in size. BONES: Degenerative changes. OTHER: Visualized upper abdomen is unremarkable. IMPRESSION: No acute process. Reviewed, dictated and finalized at location A. IMPRESSION: No acute process.
--- NOTE | ~2024-09-25 | XR_ITS ---
XR knee RT 3V 09/25/2024 10:25 Indication: Right knee pain Procedure: 3 views right knee Comparison: No prior studies for comparison. Findings: No fracture, subluxation or dislocation. No significant joint effusion. No foreign bodies. Impression: 1: No acute bone or joint abnormality. Reviewed, dictated and finalized at location A. Impression: 1: No acute bone or joint abnormality.
--- OUTSIDE RECORDS SUMMARY | 2024-09-25 09:57 | XMS_ITS | Clinical Summary ---
Author Organization [facility] Address [address] [place] [phone] Phone Care Team Providers Care Reinforced Concrete Inspector Name Role Phone Mike Mitchell MD Primary Care Provider [phone] Allergies Active Allergy Reactions Criticality Noted Date Comments Azathioprine Other (See Comments) 10/26/2022 Caused pancreatitis Iron Rash Low 08/16/2013 [place] Juice Hives,Itching High 09/16/2009 Sulfa (Sulfonamide Antibiotics) [...] upadacitinib (Rinvoq) 30 mg Tablet Sustained Release 24HRIndications:Quality Assurance Monitor Final hn's disease of colon with other complication [...] 28 days. 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 Encounters Date Type Department Care Team Description 08/22/2024 External Device Data STL ABSTRACTION Provider, Abstract 08/21/2024 External Device Data STL ABSTRACTION Provider, Abstract 07/24/2024 External Device Data STL ABSTRACTION Provider, Abstract 07/12/2024 Orders Only [facility] [address] [place] [address] [place] [address] Theresa Llanes RN Crohn's disease of small intestine without complication (CMS/HCC) 07/12/2024 Results Follow-Up [facility] [place] [address] [place] [phone] Kamilla Krause MD CALPROTECTIN, FECAL 07/05/2024 10:00 AM CDT Office Visit [facility] [address] [place] [address] [place] [phone] Kamilla Krause MD Crohn's disease of small intestine without complication (CMS/HCC) (Primary Dx); Immunodeficiency due to treatment with immunosuppressive medication from Last 3 Months Family History Medical [...] Description 09/26/2024 11:00 AM CDT Office Visit [facility]astroenter[facility]id [place] [address] [place] [address] [place] [address] [place] [address] Health Maintenance Due Date Last Done Comments Pre-Diabetes and Diabetes Screening 1959 DTAP/TDAP/TD VACCINES (1 - Tdap) 1978 PNEUMOCOCCAL VACCINE 50+ YEA RS (1 of 2 - PCV) 1978 FIT-DNA Q 3 years 2004 FIT/FOBT Q 1 year 2004 Flex Sig/CT Colonography Q 5 years 2004 Medicare Advantage (ND) Prev entative Visit/Annual Wellness Visit 02/08/2024 INFLUENZA VACCINE (#1) 2024 COLORECTAL SCREENING 07/13/2028 07/13/2018, 07/13/2018, 03/17/2017 Colorectal Cancer Screening 07/13/2028 RSV VACCINE (60+ or ) (1 - 1-dose 75+ series) 2034 ZOSTER VACCINE Completed 03/27/2019, 01/23/2019 Procedures Procedure Name Priority Date/Time Associated Diagnosis Comments CALPROTECTIN, FECAL Routine 07/05/2024 1:20 PM CDT Crohn's disease of small intestine without complication (CMS/HCC) from Last 3 Months Results * (ABNORMAL) CALPROTECTIN, FECAL (07/05/2024 1:20 PM CDT) CALPROTECTIN, FECAL 414(H) mcg/g [facility], Comment: Reference Range: <50 Normal 50-120 Borderline >120 Elevated Calprotectin in Crohn's disease and ulcerative colitis can be five to several thousand times above the reference population (50 mcg/g or less). Levels are usually 50 mcg/g or less in healthy patients and with irritable bowel syndrome. Repeat testing in 4-6 weeks is suggested for borderline values. Test Performed at: [facility], [address] [place] [address] Carlotta Herrera MD,PhD,MARIA INES Stool STOOL SPECIMEN / Unknown 07/05/2024 1:20 PM CDT 07/06/2024 3:43 AM CDT Kamilla Krause MD BODY FLUIDS AND STOOLS Fi nal Result [facility] [phone] [facility], [address] [place] [address] from Last 3 Months Insurance [employer] PPO [facility] RX [employer] Medicare Part D Advance Directives For more information, please contact: [phone] * Full Code (Latest Code Status on File) Date Activated Date Inactivated Comments 06/12/2024 7:05 AM 06/12/2024 10:54 AM * Full Code Date Activated Date Inactivated Comments 01/02/2024 10:02 AM 01/02/2024 2:37 PM Care Teams Reinforced Concrete Inspector Relationship Specialty Start Date End Date Mike Mitchell MD [address] [place] [address] PCP - General Family Practice 09/28/22
--- OUTSIDE RECORDS SUMMARY | 2024-09-25 09:57 | XMS_ITS | Encounter Summary ---
Author Organization [facility] Address [address] [facility] [place] [address] Care Team Providers Care Tech Writer Name Role Phone Unavailable Primary Care Provider Unavailabl e Encounter Details Date Type Department Care Team (Late st Contact Info) Description 09/17/2022 Lab Requisition [facility] [address] [place] [phone] Kishore Cuenca MD [facility] [address] [place] [phone] Neoplasm of uncertain behavior of skin [...] AM CDT) Case Report Dermatopathology Report Case: [id number] Authorizing Provider: Kishore Cuenca MD Collected: 09/17/2022 12:00 AM Ordering Location: [facility]ermPath Lab Received: 09/20/2022 01:06 PM [...] specimen consists of a shave biopsy measuring 65g35i1 mm. Jar 0. 3 5:01 PM CDT [...] characteristic determined by the Dermatopathology Laboratory at [facility], directed by Dr. Blanco Lima. These tests need not be, and therefore are not, approved by the [place] Food and Drug Administration. The tests are used for clinical purposes. Billing Codes Specimen Charges Stain Charges 18259 1 3 5:01 PM CDT DERMATOPATHOLOGY LABORATORY Embedded Images 3 5:01 PM CDT DERMATOPATHOLOGY LABORATORY Pathology/Cytolog y TISSUE SPECIMEN FROM SKIN / Unknown 09/17/2022 09/20/2022 1:06 PM CDT us Kishore Cuenca MD LAB - PATHOLOGY/CYTOLOGY SHAWE ZOË Final Result DERMATOPATHOLOGY LABORATORY [facility] - Department of Dermatology [address], [address] [phone] documented in this encounter Visit Diagnoses Diagnosis Neoplasm of uncertain behavior of skin documented in this encounter
--- OUTSIDE RECORDS SUMMARY | 2024-09-25 09:57 | XMS_ITS | Clinical Summary ---
Author Organization [facility] Address [address] [place] [address] Care Team Providers Care Opener Name Role Phone Mike Mitchell MD Primary Care Provider [phone] Allergies Active Allergy Reactions Criticality Noted Date Comments Fruit Extracts Hives Medium 06/09/2015 Tomatoes and oranges Azathioprine Other (See comments) Low 04/05/2017 Pancreatitis (Imuran) [place] Juice Hives Medium 09/16/2009 [place] Oil Hives Medium 09/16/2009 Sulfa (Sulfonamide Antibiotics) [...] (01/21/2022): Added automatically from request for surgery [id number] Nontraumatic incomplete tear of right rotator cu ff 01/21/2022 Overview (01/21/2022): Added automatically from request for surgery [id number] Gastrointestinal hemorrhage 11/16/2020 Crohn's disease of ileum [...] on file Legal Sex Male 8:42 AM FASHION ADVISER Gender Identity Not on file Sexual Orientation Straight 04/01/2020 8: 42 PM FASHION ADVISER Obstetrics History Last Filed Vital Signs Vital Sign Reading Time Taken Comments Blood Pressure 130/83 01/13/2023 1:05 PM FASHION ADVISER Pulse 68 01/13/2023 1:10 PM FASHION ADVISER Temperature 36.4 C (97.5 F) 01/13/2023 12:50 PM FASHION ADVISER Respiratory Rate 17 01/13/2023 1:10 PM FASHION ADVISER Oxygen Saturation 95% 01/13/2023 1:10 PM FASHION ADVISER Inhaled Oxygen Concentration - - Weight 116 kg (255 lb 12.8 oz) 01/13/2023 8:52 A M FASHION ADVISER Height 182.9 cm (6') 01/13/2023 8:52 AM FASHION ADVISER Body Mass Index 34.69 01/13/2023 8:52 AM FASHION ADVISER Plan of Treatment Health Maintenance Due Date [...] exists Well Visit 65+ 2024 Influenza Vaccine (#1) 2024 Hepatitis B Screening Completed 09/08/2016 , 2016, 02/10/2016 Zoster Vaccine Completed 03/27/2019, 01/23/2019 Medical Devices Implanted Type Area Graphics Software Engineer Device Identifier Shelf Expiration Date Model / Serial / Lot Ethicon Endo Surgery Spm3xl [id number] Square Mesh Surgical Prolene Polypropylene - Sn/A - [id number] Implanted:Qty: 1 on 04/13/2021 by Ky Sheth MD at [facility] Mesh N/A: Abdomen Ethicon Endo Surgery [id number] 12/07/2024 SPM3XL / N/A / QMBBDH [employer]rex Inc Set Implant Arthrex Fibertak Biceps Sterile Latex Free Ar-3670 - [id number] Implanted:Qty: 1 on 02/09/2022 by Shaan Samaniego MD at [facility] Left: Shoulder [employer] Inc 10/07/2026 AR-3670 / / [id number] Ar[employer]rex Inc Corkscrew Suturetape 5.5mm 14.7mm Bioabsorbable Full Thread 1.3mm Ar-1927bct - [id number] Implanted:Qty: 1 on 02/09/2022 by Shaan Samaniego MD at [facility] Orthopedic [place] Left: Humerus Ar[employer] Inc 12/08/[address] AR-[address] / / [id number] Ar[employer] Inc Swivelock C 4.75mm 19.1mm Closed Eyelet Vent [place] Suture Ar-2324bcc - [id number] Implanted:Qty: 1 on 02/09/2022 by Shaan Samaniego MD at [facility] [employer] 12/07/2025 AR-2324B CC / / [id number] Ar[employer] Inc Swivelock C 4.75mm 19.1mm Closed Eyelet Vent [place] Suture Ar-2324bcc - [id number] Implanted:Qty: 1 on 02/09/2022 by Shaan Samaniego MD at [facility] Shoulder [employer] 12/07/2025 AR-2324B CC / / [id number] Ar[employer]rex Inc System Biceps [place] Slotted Drill Guide 1.9mm Drill Fibertak Ar-3670 - [id number] Implanted:Qty: 1 on 01/13/2023 by Shaan Samaniego MD at [facility]opedic [place] Right: Shoulder [employer] Inc 10/08/2027 AR-3670 / / [id number] [place] [address] [facility] [id number] HEALTHLINK OPEN ACCESS [facility] [address] Advance Directives For more information, please contact: [phone] * Full Code (Latest Code Status on [...] 7:33 AM 11/14/2020 2:37 PM Care Teams Opener Relationship Specialty Start Date End Date Mike Mitchell MD PCP - General Family Practice 01/16/21
--- OUTSIDE RECORDS SUMMARY | 2024-09-25 09:57 | XMS_ITS | Clinical Summary ---
Author Organization [facility] Address [address] [place] [address] Care Team Providers Care Certified Genetic Counselor Name Role Phone Unavailable Primary Care Provider Unavailabl e Source Comments [facility],non-owned Affiliates and Associated Physician Practices is amultiple site organization consisting of ambulatory clinics and hospital sitesin [place], [place], [place] and [place]. This disclosure is being madepursuant to the Care Everywhere program and may not contain all information available regarding this patient. Last updated 17.[facility] Mashed Pixel Social History Tobacco Use Types Packs/Day Years [...] season) 2023 DEPRESSION SCREENING 02/08/2024 INFLUENZA VACCINE (#1) 2024 Respiratory Syncytial Virus (RSV) Vaccine Pt: [...] patient's age to complete this topic Insurance [facility]
--- OUTSIDE RECORDS SUMMARY | 2024-09-25 09:57 | XMS_ITS | Clinical Summary ---
Author Organization [facility] Address [address] [place] [address] Care Team Providers Care Automotive Exhaust Emissions Technician Name Role Phone Mike Mitchell MD Primary Care Provider [phone] Maldonado Gracia MD Unavailable Allergies Active Allergy Reactions Criticality Noted Date Comments Iron Rash 08/16/2013 [place] Oil Hives Medium 09/16/2009 Sulfa Antibiotics Hives [...] 36.7 C (98 F) 03/20/2021 9:09 AM PROFESSIONAL WRESTLER Respiratory Rate 20 10/12/2023 7:58 AM CDT [...] PSA Discussion 2014 SARS-COV-2 Immunization (3 - season) 2023 10/06/2020, 09/09/2020 Influenza Immunization (#1) 2024 Colonoscopy 07/13/2028 07/13/2018 Colorectal Cancer Screening [...] patient's age to complete this topic [place] [address] [facility] OA Care Teams Automotive Exhaust Emissions Technician Relationship Specialty Start Date End Date Mike Mitchell MD PCP - General Family Medicine 03/20/21 Maldonado Gracia MD [address] [address] Consulting Physician Urology 10/12/23
[2024-09-25 19:21] LABS: Anion Gap 10 mmol/L (4-12); Blood Urea Nitrogen 17 mg/dL (9-20); Calcium 9.2 mg/dL (8.4-10.2); Carbon Dioxide 26 mmol/L (22-30); Chloride 100 mmol/L (98-107); Estimated Glomerular Filt Rate > 60; Glucose 174 mg/dL (65-110); Potassium 3.7 mmol/L (3.4-5.0); Sodium 136 mmol/L (137-145)
[2024-09-25 19:26] LABS: NT Pro B Type Natriuretic Pept < 20 pg/mL (19.9-100)
== END 2024-09-25 09:39 | disposition home or self-care (01) ==
LOC: ANHBWCLAB 09:39
PROVIDERS: PCP Nurse Practitioner Adult Health; Visit Provider Nurse Practitioner Adult Health
DX: R60.9 Edema, unspecified (principal); R06.00 Dyspnea, unspecified; M25.561 Pain in right knee
CPT/HCPCS: 36415; 71046; 73562; 80048; 83880

== ENCOUNTER 2024-12-18 09:42 | Outpatient (CLI) | payer MEDICARE, SELFPAY ==
--- OUTSIDE RECORDS SUMMARY | 2011-02-12 18:00 | XMS_ITS | Continuity of Care Document ---
Author Organization [facility], TD Address [address] [place] [phone] Phone Care Team Providers Care Dispatch Machine Runner Name Role Phone Michael MORGAN, Deba Unavailable Unavailable Allergies, Adverse Reactions, Alerts Substance Reaction Status Criticality iron Active No Information Medications Medication Instructions Dosage Effective Dates (start - stop) Status Comments POTASSIUM (unknown strength) Not Available - Active LISINOPRIL (unknown strength) Not Available - Active NEXIUM (unknown strength) Not Available - Active Procedures Procedure Date Vision [facility] frames purchases Trifocal Lens Anti-reflective coating TINT Slip On Sunglasses EYE EXAM, EXISTING PATIENT VISION REFRACTION UPDATE Advance Directives Directive Yes / No Effective Date File Name No Information Encounters Encounter Description Practice Location Reason(s) For Visit Diagnoses Date Provider Providers Copied on Encounter [facility], [facility], [address] [place] [address], [id number] , tel:[phone] [facility] No Information 2 Michael Jones. [address] [place] [address], [id number], [place]. tel:[phone] Referring Provider: Karen Rodriguez, [address] [place] [address], [id number] . tel:[phone] [facility], [facility], [address] [place] [address], [id number] , tel:[phone] [facility] PresbyopiaMyopiaOthe r and combined forms of senile cataractVitreous degeneration 1 Michael Deblinda. [address] [place] [address], [id number], . tel:[phone] Referring Provider: Karen Rodriguez, [address] [place] [address], [id number] . tel:[phone] [facility], [address] [place] [address], [address] [place] [address] , tel:[phone] [facility] No Information 1 Michael Deblinda. [address] [place] [address], [id number], . tel:[phone] [facility], [address] [place] [address], [address] [place] [address] , tel:[phone] [facility] No Information 0 Michael Jones. [address] [place] [address], [address] [place] [address], . tel:[phone] Family History Family Member Type Diagnosis Age At Onset Problem (finding) No Family history of Re tinal Disorders Mother Problem (finding) Arthritis Problem (finding) No Family history of Ca taracts Problem (finding) No Family history of St rabismus Problem (finding) No Family history of Ar thritis Problem (finding) No Family history of Gl aucoma Problem (finding) No Family history of Re spiratory Disease Problem (finding) No Family history of Di abetes mellitus Father Problem (finding) HBP Problem (finding) No Family history of St roke Mother Problem (finding) Heart Disease Problem (finding) No Family hist ory of Macular Degeneration Mother Problem (finding) asthma Payers Payer name Insurance type Covered alliance party ID Authoriza tiyareli(s) [facility] [id number] Social History Type Description Quantity Date Captured Comments Sex Male Smoking Status No Information Chief Complaint And Reason For Visit No Information Reason For Referral Reason For Referral No Information History Of Present Illness Encounter Date Complaint History Of Prese nt Illness No Information Functional Status Date Functional Assessmen t No Information Instructions Date Instruction Delaney carr - Return in 1 year with EB for R ef T & D. Related to Presbyopia Presbyopia OU. Condi tion: stable. Myopia OU. Condition: stable. Other and combined forms of senile cataract OU. Condition: stable. PVD OD. Condition: stable. - Ed pt on lens options. Rec better fitting frames as well. Discussed golfer's lenses, reg ophthalmic specs, and rounded/blended bifocals. Rec UV protection outdoors. Early cats OU-will monitor. Discussed AR coating if glare bothersome. Floaters OD-ed pt on s/sx of R/D-call if notices. IOP good today-no glaucoma. No AMD seen and retina healthy. Ed pt on all findings and recommendations. Related to Presbyopia Assessments Type Assessment Date No Information Patient Care Teams Name Effective Dates (start - stop) Status Members No Information
--- NOTE | ~2024-12-18 | XR_ITS ---
EXAMINATION: XR knee RT 3V, 12/18/2024 9:45 LOAD MANAGER HISTORY: M25.561 - Pain in right knee COMPARISON: No comparisons available. Findings: No acute fracture or malalignment. No significant degenerative changes. Soft tissues unremarkable. Impression: No acute fracture or malalignment. Reviewed, dictated and finalized at location P. MANAGER Impression: No acute fracture or malalignment.
--- OUTSIDE RECORDS SUMMARY | 2024-12-18 10:08 | XMS_ITS | Clinical Summary ---
Author Organization [facility] Address [address] [place] [address] Care Team Providers Care Orthopedic Physician Assistant Name Role Phone Mike Mitchell MD Primary Care Provider [phone] Allergies Active Allergy Reactions Criticality Noted Date Comments Fruit Extracts Hives Medium 06/09/2015 Tomatoes and oranges Azathioprine Other (See comments) Low 04/05/2017 Pancreatitis (Imuran) [place] Juice Hives Medium 09/16/2009 [place] Oil Hives Medium 09/16/2009 Sulfa (Sulfonamide Antibiotics) [...] (01/21/2022): Added automatically from request for surgery [id number] Nontraumatic incomplete tear of right rotator cu ff 01/21/2022 Overview (01/21/2022): Added automatically from request for surgery [id number] Gastrointestinal hemorrhage 11/16/2020 Crohn's disease of ileum [...] on file Legal Sex Male 8:42 AM INCOME TAX ADMINISTRATOR Gender Identity Not on file Sexual Orientation Straight 04/01/2020 8: 42 PM INCOME TAX ADMINISTRATOR Last Filed Vital Signs Vital Sign Reading Time Taken Comments Blood Pressure 130/83 01/13/2023 1:05 PM INCOME TAX ADMINISTRATOR Pulse 68 01/13/2023 1:10 PM INCOME TAX ADMINISTRATOR Temperature 36.4 C (97.5 F) 01/13/2023 12:50 PM INCOME TAX ADMINISTRATOR Respiratory Rate 17 01/13/2023 1:10 PM INCOME TAX ADMINISTRATOR Oxygen Saturation 95% 01/13/2023 1:10 PM INCOME TAX ADMINISTRATOR Inhaled Oxygen Concentration - - Weight 116 kg (255 lb 12.8 oz) 01/13/2023 8:52 A M INCOME TAX ADMINISTRATOR Height 182.9 cm (6') 01/13/2023 8:52 AM INCOME TAX ADMINISTRATOR Body Mass Index 34.69 01/13/2023 8:52 AM INCOME TAX ADMINISTRATOR Plan of Treatment Health Maintenance Due Date Last Done Comments Colon Cancer Screening-Colonoscopy 1960 Depression Screening 1959 Hepatitis C Screening 1959 Prostate Cancer Screening-PSA 1959 DTaP/Tdap/Td Vaccine (1 - Tdap) 1970 Pneumococcal vaccine 65+ (1 of 2 - PCV) 1978 Fall Risk Assessment 01/14/2024 01/13/2023 Abdominal Aortic Aneurysm (A AA) Screen 2024 12/12/2017, 05/02/2015, 12/18/2013, Additional history exists Well Visit 65+ 2024 Covid-19 Vaccine (3 - 2024-2 6 season) 2024 10/06/2020, 09/09/2020 Influenza Vaccine (#1) 2024 Zoster Vaccine Completed 03/27/2019, 01/23/2019 Hepatitis B Screening Completed 03/20/2020 , 09/08/2016, 2016, Additional history exists Medical Devices Implanted Type Area Ticket Taker Device Identifier Shelf Expiration Date Model / Serial / Lot Ethicon Endo Surgery [id number] [id number] Square Mesh Surgical Prolene Polypropylene - Sn/A - [id number] Implanted:Qty: 1 on 04/13/2021 by Ky Sheth MD at [facility] Mesh N/A: Abdomen Ethicon Endo Surgery [id number] 12/07/2024 SPM3XL / N/A / [id number] Ar[employer]rex Inc Set Implant Arthrex Fibertak Biceps Sterile Latex Free Ar-3670 - [id number] Implanted:Qty: 1 on 02/09/2022 by Shaan Samaneigo MD at [facility] Left: Shoulder [employer] Inc 10/07/2026 AR-3670 / / [id number] Ar[employer] Inc Corkscrew Suturetape 5.5mm 14.7mm Bioabsorbable Full Thread 1.3mm Ar-1927bct - [id number] Implanted:Qty: 1 on 02/09/2022 by Shaan Samaniego MD at [facility] [place] Left: Humerus Ar[employer]rex Inc 12/08/[address] / / [id number] Ar[employer] Inc Swivelock C 4.75mm 19.1mm Closed Eyelet Vent [place] Suture Ar-2324bcc - [id number] Implanted:Qty: 1 on 02/09/2022 by Shaan Samaniego MD at [facility] [employer] Inc 12/07/2025 AR-2324B CC / / [id number] [employer] Inc Swivelock C 4.75mm 19.1mm Closed Eyelet Vent [place] Suture Ar-2324bcc - [id number] Implanted:Qty: 1 on 02/09/2022 by Shaan Samaniego MD at [facility] Shoulder [employer] Inc 12/07/2025 AR-2324B CC / / [id number] [employer] System Biceps [place] Slotted Drill Guide 1.9mm Drill Fibertak Ar-3670 - [id number] Implanted:Qty: 1 on 01/13/2023 by Shaan Samaniego MD at [facility] [place] Right: Shoulder [employer] Inc 10/08/2027 AR-3670 / / [id number] [place] [address] [facility] [id number] [facility] [id number] Advance Directives For more information, please contact: [phone] * Full Code (Latest Code Status on [...] 7:33 AM 11/14/2020 2:37 PM Care Teams Orthopedic Physician Assistant Relationship Specialty Start Date End Date Mike Mitchell MD PCP - General Family Practice 01/16/21
--- OUTSIDE RECORDS SUMMARY | 2024-12-18 10:08 | XMS_ITS | Clinical Summary ---
Author Organization [facility] Address [address] [place] [phone] Phone Care Team Providers Care Interior Painter Name Role Phone Mike Mitchell MD Primary Care Provider [phone] Allergies Active Allergy Reactions Criticality Noted Date Comments Azathioprine Other (See Comments) 10/26/2022 Caused pancreatitis Iron Rash Low 08/16/2013 [place] Juice Hives,Itching High 09/16/2009 Sulfa (Sulfonamide Antibiotics) [...] mg by mouth 2 times daily. Active testosterone cypionate (DEPO-TESTOSTERONE) 200 mg/mL Oil [...] AT BEDTIME. 90 Suppository 1 024 Active Additional Information Patient not taking.Reported on 09/26/2024 pravastatin (PRAVACHOL) 10 mg tablet Take 10 mg by mouth daily with supper. Active upadacitinib (Rinvoq) 30 mg Tablet Sustained Release 24HRIndications:Econometrics Professor hn's disease of colon with other complication [...] 28 days. 2 mL 11 025 Active loperamide (IMODIUM) 2 mg capsule Take 2 Capsules (4 mg) by mouth 2 times daily. 120 Capsule 4 025 Active Active Problems Problem Noted Date Diagnosed Date Crohn's disease of large intestine with other co mplication 12/06/2023 Peptic ulcer 10/26/2022 Pancreatitis 10/26/2022 Kidney stone 10/26/2022 Granulomatous colitis 10/26/2022 Encounters Date Type Department Care Team Description 11/28/2024 External Device Data STL ABSTRACTION Provider, Abstract 11/27/2024 External Device Data STL ABSTRACTION Provider, Abstract 11/14/2024 [facility] [address] [facility] [address] [address] Kamilla Krause MD 10/23/2024 External Device Data STL ABSTRACTION Provider, Abstract 09/27/2024 Results Follow-Up [facility] Gastro[facility] [place] [address] Kamilla Krause MD CBC WITH DIFFERENTIAL, C-REACTIVE PROTEIN, HEPATIC FUNCTION PANEL, Additional followed-up results: 3 09/26/2024 11:00 AM CDT Office Visit [facility] [place] [address] [phone] Kamilla Krause MD Crohn's disease of small intestine without complication (CMS/HCC) (Primary Dx); Vitamin B12 deficiency (non anemic); Other iron deficiency anemia; Immunodeficiency due to treatment with immunosuppressive medication 09/26/2024 External Device Data STL ABSTRACTION Provider, Abstract [...] Sign Reading Time Taken Comments Blood Pressure 132/80 09/26/2024 10:35 AM CDT Pulse 71 09/26/2024 10:35 AM CDT Temperature 36.9 C (98.4 F) 07/05/2024 9:58 AM CDT Respiratory Rate 18 06/12/2024 8:15 AM CDT Oxygen Saturation 94% 07/05/2024 9:58 AM CDT Inhaled Oxygen Concentration - - Weight 112.9 kg (249 lb) 09/26/2024 10:35 AM CDT Height 182.9 cm (6') 09/26/2024 10:35 AM CDT Body Mass Index 33.77 09/26/2024 10:35 AM CDT Plan of Treatment Upcoming Encounters Date Type Department Care Team (Late st Contact Info) Description 02/27/2025 10:40 AM BALLER TENDER Office Visit [facility] [place] [address] [place] [address] [place] [address] [address] [address] Health Maintenance Due Date Last Done Comments Pre-Diabetes and Diabetes Screening 1959 DTAP/TDAP/TD VACCINES (1 - Tdap) 1978 PNEUMOCOCCAL VACCINE 50+ YEA RS (1 of 2 - PCV) 1978 FIT-DNA Q 3 years 2004 FIT/FOBT Q 1 year 2004 Flex Sig/CT Colonography Q 5 years 2004 INFLUENZA VACCINE (#1) 2024 COLORECTAL SCREENING 07/13/2028 07/13/2018, 07/13/2018, 03/17/2017 Colorectal Cancer Screening 07/13/2028 RSV VACCINE (60+ or ) (1 - 1-dose 75+ series) 2034 ZOSTER VACCINE Completed 03/27/2019, 01/23/2019 Procedures Procedure Name Priority Date/Time Associated Diagnosis Comments CALPROTECTIN, FECAL Routine 11/16/2024 9 :59 AM CDT Crohn's disease of small intestine without complication (CMS/HCC) IRON, TIBC, AND PERCENT SATURATION Routine 09/26/2024 11:37 AM CDT Other iron deficiency anemia FERRITIN Routine 09/26/2024 11:37 AM CDT Other iron deficiency anemia HEPATIC FUNCTION PANEL Routine 09/26/2024 11:37 AM CDT Crohn's disease of small intestine without complication (CMS/HCC) C-REACTIVE PROTEIN Routine 09/26/2024 11 :37 AM CDT Crohn's disease of small intestine without complication (CMS/HCC) CBC WITH DIFFERENTIAL Routine 09/26/2024 11:37 AM CDT Crohn's disease of small intestine without complication (CMS/HCC) from Last 3 Months Results * (ABNORMAL) CALPROTECTIN, FECAL (11/16/2024 9:59 AM CDT) CALPROTECTIN, FECAL 830(H) mcg/g [facility], Comment: Reference Range: <50 Normal 50-120 Borderline >120 Elevated Calprotectin in Crohn's disease and ulcerative colitis can be five to several thousand times above the reference population (50 mcg/g or less). Levels are usually 50 mcg/g or less in healthy patients and with irritable bowel syndrome. Repeat testing in 4-6 weeks is suggested for borderline values. Test Performed at: [facility], [address] [place] [address] Carlotta Herrera MD,PhD,MARIA INES Stool STOOL SPECIMEN / Unknown 11/16/2024 9:59 AM CDT 11/16/2024 9:46 PM CDT Kamilla Krause MD BODY FLUIDS AND STOOLS Fi nal Result [facility] [phone] [facility], [address] [place] [address] * (ABNORMAL) IRON, TIBC, AND PERCENT SATURATION (09/26/2024 11:37 AM CDT) IRON 65 50 - 180 mcg/dL [facility] TIBC 373 250 - 425 mcg/dL (calc) [facility] IRON % SATURATION 17(L) 20 - 48 % (calc) [facility] Comment: Test Performed at: [facility] [address] [place] [address] Rome Castillo MD Blood 09/26/2024 11:3 7 AM CDT 09/26/2024 11:37 AM CDT Kamilla Krause MD CHEMISTRY ORDERABLES Jayde mckay Result [facility] [phone] [facility] [address] [place] [address] * (ABNORMAL) CBC WITH DIFFERENTIAL (09/26/2024 11:37 AM CDT) WBC 7.3 3.8 - 10.8 Thousand/ uL [facility] RBC 5.62 4.20 - 5.80 Million/u L [facility] HEMOGLOBIN 17.3(H) 13.2 - 17.1 g/dL [facility] HEMATOCRIT 52.6(H) 38.5 - 50.0 % [facility] MCV 93.6 80.0 - 100.0 fL [facility] MCH 30.8 27.0 - 33.0 pg [facility] MCHC 32.9 32.0 - 36.0 g/dL [facility] Comment: For adults, a slight decrease in the calculated MCHC value (in the range of 30 to 32 g/dL) is most likely not clinically significant; however, it should be interpreted with caution in correlation with other red cell parameters and the patient's clinical condition. RDW 12.3 11.0 - 15.0 % [facility] PLATELETS 260 140 - 400 Thousand/ uL [facility] MPV 10.5 7.5 - 12.5 fL [facility] NEUTROPHIL ABSOLUTE 5,220 1,500 - 7,800 cells/uL [facility] LYMPHOCYTE ABSOLUTE 1,526 850 - 3,900 cells/uL [facility] MONOCYTE ABSOLUTE 467 200 - 950 cells/uL [facility] EOSINOPHIL ABSOLUTE 51 15 - 500 cells/uL [facility] BASOPHILS ABSOLUTE 37 0 - 200 cells/uL [facility] NEUTROPHIL 71.5 % [facility] LYMPHOCYTES 20.9 % [facility] MONOCYTE 6.4 % [facility] EOSINOPHILS 0.7 % [facility] BASOPHILS 0.5 % [facility] Comment: Test Performed at: [place] [address] [address] [address] Rome Castillo Blood 09/26/2024 11:3 7 AM CDT 09/26/2024 11:37 AM CDT Kamilla Krause MD HEMATOLOGY ORDERABLES Fin al Result Performing Organization Address City/[facility]/ZIP Code Phone Number [facility] [phone] [place] [address] [place] [address] * C-REACTIVE PROTEIN (09/26/2024 11:37 AM CDT) CRP 6.0 <8.0 mg/L [facility] Comment: Test Performed at: [place] [address] [address] [address] Rome Castillo Blood 09/26/2024 11:3 7 AM CDT 09/26/2024 11:37 AM CDT Result [facility] Kamilla Krause MD CHEMISTRY ORDERABLES Jayde l Result Performing Organization Address City/[facility] Code Phone Number [facility] [phone] [place] [address] [place] [address] * FERRITIN (09/26/2024 11:37 AM CDT) FERRITIN 81 24 - 380 ng/mL [facility] Comment: Test Performed at: [facility] [address] [address] Rome Castillo MD Blood 09/26/2024 11:3 7 AM CDT 09/26/2024 11:37 AM CDT Kamilla Krause MD CHEMISTRY ORDERABLES Jayde l Result Performing Organization Address City/State/[facility] Phone Number [facility] [phone] [facility] [address] [address] * HEPATIC FUNCTION PANEL (09/26/2024 11:37 AM CDT) TOTAL PROTEIN 7.3 6.1 - 8.1 g/dL [facility] ALBUMIN 4.5 3.6 - 5.1 g/dL [facility] GLOBULIN 2.8 1.9 - 3.7 g/dL (calc) [facility] ALBUMIN/GLOBULIN RATIO 1.6 1.0 - 2.5 (calc) [facility] BILIRUBIN TOTAL 0.4 0.2 - 1.2 mg/dL [facility] BILIRUBIN DIRECT 0.1 < OR = 0.2 mg/dL [facility] BILIRUBIN INDIRECT 0.3 0.2 - 1.2 mg/dL (calc) [facility] ALKALINE PHOSPHATASE 52 35 - 144 U/L [facility] AST 23 10 - 35 U/L [facility] ALT 24 9 - 46 U/L [facility] Comment: Test Performed at: [place] [address] [address] [address] Rome Castillo Blood 09/26/2024 11:3 7 AM CDT 09/26/2024 11:37 AM CDT Kamilla Krause MD CHEMISTRY ORDERABLES Jayde l Result [facility] [phone] [facility] [address] [address] [address] from Last [address] [address] [employer] [facility] RX [employer] Medicare Part D Advance Directives For more information, please contact: [phone] * Full Code (Latest Code Status on File) Date Activated Date Inactivated Comments 06/12/2024 7:05 AM 06/12/2024 10:54 AM * Full Code Date Activated Date Inactivated Comments 01/02/2024 10:02 AM 01/02/2024 2:37 PM Care Teams Interior Painter Relationship Specialty Start Date End Date Mike Mitchell MD [address] [place] [address] PCP - General Family Practice 09/28/22
--- OUTSIDE RECORDS SUMMARY | 2024-12-18 10:08 | XMS_ITS | Clinical Summary ---
Author Organization [facility] Address [address] [place] [address] Care Team Providers Care Brass Polisher Name Role Phone Mike Mitchell MD Primary Care Provider [phone] Maldonado Gracia MD Unavailable Allergies Active Allergy Reactions Criticality Noted Date Comments Iron Rash 08/16/2013 [place] Oil Hives Medium 09/16/2009 Sulfa Antibiotics Hives [...] 36.7 C (98 F) 03/20/2021 9:09 AM MULE SPINNER Respiratory Rate 20 10/12/2023 7:58 AM CDT [...] 2009 PSA Discussion 2014 Influenza Immunization (#1) 2024 SARS-COV-2 Immunization ( season) 2024 10/06/2020, 09/09/2020 Colonoscopy 07/13/2028 07/13/2018 Colorectal Cancer [...] to complete this topic [place] [address] [facility] OA Care Teams Brass Polisher Relationship Specialty Start Date End Date Mike Mitchell MD PCP - General Family Medicine 03/20/21 Maldonado Gracia MD [address] [address] Consulting Physician Urology 10/12/23
--- OUTSIDE RECORDS SUMMARY | 2024-12-18 10:08 | XMS_ITS | Encounter Summary ---
Author Organization [facility] Address [address] [place] [address] Care Team Providers Care Communications Department Chairperson Name Role Phone Unavailable Primary Care Provider Unavailabl e Encounter Details Date Type Department Care Team (Late st Contact Info) Description 09/17/2022 Lab Requisition [facility]erm[facility] Lab [address] [place] [phone] Kishore Cuenca MD [facility] DERMATOLOGY [address] [place] [phone] Neoplasm of uncertain behavior of skin [...] AM CDT) Case Report Dermatopathology Report Case: [id number] Authorizing Provider: Kishore Cuenca MD Collected: 09/17/2022 12:00 AM Ordering Location: [facility] DermPath Lab Received: 09/20/2022 01:06 PM Pathologist: [...] specimen consists of a shave biopsy measuring 77a11r5 mm. Jar 0. 3 5:01 PM CDT [...] characteristic determined by the Dermatopathology Laboratory at [facility], directed by Dr. Blanco Lima. These tests need not be, and therefore are not, approved by the [place] Food and Drug Administration. The tests are used for clinical purposes. Billing Codes Specimen Charges Stain Charges 70799 1 3 5:01 PM CDT DERMATOPATHOLOGY LABORATORY Embedded Images 3 5:01 PM CDT DERMATOPATHOLOGY LABORATORY Pathology/Cytolog y TISSUE SPECIMEN FROM SKIN / Unknown 09/17/2022 09/20/2022 1:06 PM CDT us Kishore Cuenca MD LAB - PATHOLOGY/CYTOLOGY SHAWE ZOË Final Result DERMATOPATHOLOGY LABORATORY [facility] - Department of Dermatology [address] [phone] documented in this encounter Visit Diagnoses Diagnosis Neoplasm of uncertain behavior of skin documented in this encounter
--- OUTSIDE RECORDS SUMMARY | 2024-12-18 10:08 | XMS_ITS | Clinical Summary ---
Author Organization [facility] Address [address] [place] [address] Care Team Providers Care Street Light Mechanic Name Role Phone Unavailable Primary Care Provider Unavailabl e Source Comments [facility],non-owned Affiliates and Associated Physician Practices is amultiple site organization consisting of ambulatory clinics and hospital sitesin [place], [place], [place] and [place]. This disclosure is being madepursuant to the Care Everywhere program and may not contain all information available regarding this patient. Last updated 17.[facility] [employer] Social History Tobacco Use Types Packs/Day Years [...] 2009 ZOSTER VACCINE (1 of 2) 2009 DEPRESSION SCREENING 02/08/2024 COVID-19 VACCINE (1 - 2023-2 5 season) 2024 INFLUENZA VACCINE (#1) 2024 Respiratory Syncytial Virus [...] patient's age to complete this topic Insurance [place] [facility] Address[facility] [address] [place] [address] [facility] Address: [facility] [id number] [place] [address]
== END 2024-12-18 09:43 | disposition home or self-care (01) ==
LOC: ANHIMG 09:44 → ANHBWCIMG 09:46
PROVIDERS: PCP Nurse Practitioner Adult Health; Visit Provider Nurse Practitioner Adult Health
DX: M25.561 Pain in right knee (principal)
CPT/HCPCS: 73562

== ENCOUNTER 2025-01-18 09:47 | Outpatient (CLI) | payer MEDICARE, SELFPAY ==
--- NOTE | ~2025-01-18 | MR_ITS ---
EXAMINATION: MR knee RT wo con DATE: 01/18/2025 10:16 INDICATION: Right knee pain TECHNIQUE: Magnetic resonance imaging (MRI) of the right knee was performed without intravenous contrast. Sequences included coronal PD-weighted FSE, coronal PD-weighted FS FSE, sagittal T2-weighted FSE, sagittal PD-weighted FS FSE and axial PD weighted fat saturated FSE. COMPARISON: None. FINDINGS: Medial compartment: Complex medial meniscal tear which includes a longitudinal horizontal tear plane which contacts the inferior articular surface at the lateral side of the posterior horn progressing cross the inner free edge and extending to contact the superior articular surface at the medial posterior horn and posterior aspect of the meniscal body. There is a likely second. There is a secondary radial tear plane at the meniscal body involving the portion meniscus cephalad to the longitudinal tear plane. There is cephalad subluxation of the more anterior flap of meniscus and more irregular degenerative tearing with macerated appearance of the cephalad portion meniscus posterior to the radial tear plane. There is pa rtial thickness chondral ulceration with mild chondral surface irregularity at the weightbearing medial femoral condyle most prominent at the central aspect of the articular surface where there is a small focus of underlying subarticular edema-like signal change. There is mild partial-thickness cartilage loss along the central, medial and posterior aspect of the medial tibial plateau. There is mild subarticular edema-like signal change along the medial margin of the medial tibial plateau which could be due to overlying chondromalacia altered stress distribution resulting from a meniscal tear. Lateral compartment: Lateral meniscus is normal. Small region of partial-thickness chondral ulceration along the posterior margin of the weightbearing lateral femoral condyle. Remainder of the articular cartilage is normal. Patellofemoral compartment: Deep chondral fissuring with underlying subarticular cystlike change at the medial patellar facet. Deep chondral ulceration and fissuring with underlying cortical irregularity at the inferior half of the trochlear groove. Ligaments and tendons: Anterior and posterior cruciate ligaments are normal. The medial collateral ligament and fibular collateral ligament complex are normal. Mild distal quadriceps tendinopathy with small enthesophyte at its patellar insertion. There is additional mild tendinopathy at the proximal patellar tendon and couple bands of magic angle artifact at the distal tendon. The visualized medial and lateral hamstring tendons as well as the iliotibial band are normal. Fluid: Moderate-sized right knee joint effusion. There is an incomplete suprapatellar plical band. Mild synovitis along the posterior margin of Hoffa's fat pad. No loose osteochondral bodies identified. Additional mild synovitis at the margins of a small to moderate-sized Beltran's cyst which measures 4.8 x 3.7 x 1.1 cm. Osseous/other: Bone alignment is normal. No fracture or pathologic marrow replacing process. IMPRESSION: 1. Complex medial meniscal tear. 2. 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 Minimal osteoarthritis in the lateral compartment with small region of moderate grade chondral malacia in the posterior margin of the weightbearing lateral femoral condyle. 3. Likely reactive moderate sized right knee joint effusion and small to moderate-sized Beltran's cyst. Reviewed, dictated and finalized at location A. F INFORMATION SECURITY OFFICER IMPRESSION: 1. Complex medial meniscal tear. 2. Mild medial and patellofemoral compartment osteoarthritis with regions of mo derate and high-grade chondromalacia. Minimal osteoarthritis in the lateral com partment with small region of moderate grade chondral malacia in the posterior margin of the weightbearing lateral femoral condyle. 3. Likely reactive moderate sized right knee joint effusion and small to modera te-sized Beltran's cyst.
== END 2025-01-18 09:48 | disposition home or self-care (01) ==
LOC: MICIMG 09:48
PROVIDERS: PCP Nurse Practitioner Adult Health; Visit Provider Nurse Practitioner Adult Health
DX: S83.231A Complex tear of medial meniscus, current injury, right knee, initial encounter (principal); M17.11 Unilateral primary osteoarthritis, right knee; M94.261 Chondromalacia, right knee; M71.21 Synovial cyst of popliteal space [Baker], right knee; X58.XXXA Exposure to other specified factors, initial encounter
CPT/HCPCS: 73721